=== PATIENT | female | born 1960 | race African-American/Black ===

== ENCOUNTER 2016-09-02 22:01 | Emergency (ER) | payer OTHER ==
[~2016-09-02] VITALS: Ht 170.2 cm; Wt 190.5 kg
[~2016-09-02 22:01] MED LIST: ALBU0.63 NEB; ALPR0.5T6 PO; AMLO1CAP10 PO; AMLO1CAP15 PO; AMLO1TAB95 PO; ASPI81TA44 PO; AZIT250T6 PO; Amoxicillin/Potassium Clav PO; CRESTOR20 MG PO; CYCL10TA2 PO; CYCL5TAB PO; DICL100G7 TP; FERR-26 PO; FLUT10SP NS; FURO40TA4 PO; GABA600T2 PO; HYDR-2762 PO; HYDR-971 PO; HYDR25TA PO; IBUP-1060 PO; INSU100I17 SQ; INSU100I27 SQ; INSU100V13 SQ; ISOS20TA2 PO; ISOS60TA2 PO; LANS30CA PO; LIDO700A4 TP; LOSA50TA6 PO; METF500T4 PO; METO25TA4 PO; NITR0.4T SL; OXYB5TAB7 PO; OXYC-250 PO; POTA20TA12 PO; PRED20TA PO; PREG75CA PO; PROAIR HFA8.5 GM IH; ROPI1TAB2 PO; TOLT4CAP PO; TRAM-29 PO; XOPENEX1.25 MG/3 NEB; ZOLP10TA4 PO
--- NOTE | 2016-09-02 22:57 | PHYS DOC ---
Past Medical History Past Medical History: Anxiety, Asthma, CAD, COPD, Diabetes-Type II, High Cholesterol, Hypertension, Other Additional Past Medical Histor: neuropathy, morbid obesity Past Surgical History: Angioplasty, Other Additional Past Surgical Histo: abscess surgery, cardiac cath with stents Alcohol Use: Occasionally Drug Use: Opiates Adult General Chief Complaint Chief Complaint: HIP PAIN HPI HPI Patient is a 56 year old female who presents with RLE pain. Patient reports for the past 3 days she has had sharp pain radiating from her right buttock down the back of her leg to her right foot. She denies fall or trauma in the past. She has taken some hydrocodone with temporary relief. Patient reports she has had symptoms in the past that were the same; it was diagnosed as sciatica in the past. No other acute complaints. Review of Systems Review of Systems Constitutional: Denies fever or chills Eyes: Denies change in visual acuity or eye pain HENT: Denies nasal congestion or sore throat Respiratory: Denies cough or shortness of breath Cardiovascular: Denies chest pain GI: Denies abdominal pain, nausea, vomiting, bloody stools or diarrhea : Denies dysuria or hematuria Musculoskeletal: RLE pain Integument: Denies rash or skin lesions Neurologic: Denies headache, focal weakness or sensory changes Current Medications Current Medications Current Medications Medications (Trade) Dose Ordered Sig/Lui Start Time Stop Time Status Last Admin Dose Admin Acetaminophen/ Hydrocodone Bitart (Lortab 5/325) 2 tab 1X ONCE 09/02/16 23:00 09/02/16 23:01 DC 09/02/16 23:32 2 TAB Allergies Allergies Allergies Coded Allergies Type Severity Reaction Last Updated Verified No Known Drug Allergies 04/08/15 No Physical Exam Physical Exam Constitutional: Well developed, well nourished, no acute distress, non-toxic appearance HENT: Normocephalic, atraumatic, bilateral external ears normal Eyes: EOMI, conjunctiva normal, no discharge Neck: Normal range of motion, no stridor Cardiovascular: Heart rate normal, regular rhythm, no murmur Lungs & Thorax: Bilateral breath sounds clear to auscultation Abdomen: Bowel sounds normal, soft, non-distended, no TTP Skin: Warm, dry, no erythema, no rash Back: No lumbar tenderness, no deformity noted Extremities: BLE non-pitting edema. RLE visually unremarkable compared to L; no significant point TTP; motor function and sensation to light touch at baseline; 2+ DP pulse Neurologic: Alert and oriented X 3, no gross deficits noted Current Patient Data Vital Signs Vital Signs Date Time Temp Pulse Resp B/P Pulse Ox O2 Delivery O2 Flow Rate FiO2 09/02/16 23:35 83 20 125/57 94 Room Air 2 09/02/16 22:03 99.3 99.3 EKG EKG [] Radiology/Procedures Radiology/Procedures [] Course & Med Decision Making Course & Med Decision Making Pertinent Labs and Imaging studies reviewed. (See chart for details) Patient is 56-year-old female who presents with right lower extremity pain. History and exam consistent with sciatica, which patient says she has history of. No other concerning findings on physical exam. As there is no trauma and she has h/o similar pain, will not pursue imaging at this time. Oral pain medication ordered for relief of pain. I wish to avoid steroids in this patient given comorbidities and concern for side effects. Patient discharged home with prescription for same, instructions for follow-up, return precautions. Dragon Disclaimer Dragon Disclaimer This electronic medical record was generated, in whole or in part, using a voice recognition dictation system. Departure Departure Impression: Primary Impression: Sciatica Disposition: 01 HOME, SELF-CARE Condition: STABLE Referrals: ALBA GUERRA MD (PCP) Patient Instructions: Sciatica Additional Instructions: Thank you for allowing us to provide care today in the Emergency Department. Take the provided medication as directed. Use caution when taking the pain medication as it can make you drowsy. Also continue to take the gabapentin that you have. Schedule a follow up appointment with your primary care doctor. Return promptly to the Emergency Department if you develop any new or concerning symptoms. Scripts Hydrocodone/Apap 5-325 (Tama 5-325 Tablet)1 Each Tablet1-2 Tab PO PRN Q6HRS PRN PAIN #20 TAB Prov:CIERRA BERRIOS MD 09/02/16 CIERRA BERRIOS MD Sep 02, 2016 22:58
[2016-09-02] MEDS ORDERED: HYDROCODONE/APAP 5/325MG TABLET. PO ONE (23:00)
[2016-09-02] MEDS ORDERED: HYDR-971 PO (23:01)
[2016-09-02 23:35] VITALS: BP 125/57
== END 2016-09-03 00:55 | disposition home or self-care (01) ==
LOC: ER 22:01
DX: M54.30 Sciatica, unspecified side (principal); I10 Essential (primary) hypertension; E78.00 Pure hypercholesterolemia, unspecified; E66.01 Morbid (severe) obesity due to excess calories; J44.9 Chronic obstructive pulmonary disease, unspecified; I25.10 Atherosclerotic heart disease of native coronary artery without angina pectoris; F41.9 Anxiety disorder, unspecified; F11.10 Opioid abuse, uncomplicated; E11.40 Type 2 diabetes mellitus with diabetic neuropathy, unspecified; Z95.5 Presence of coronary angioplasty implant and graft
CPT/HCPCS: 99284

== ENCOUNTER 2016-09-08 12:49 | Inpatient (IN) | payer OTHER ==
[~2016-09-08] VITALS: Ht 170.2 cm; Wt 175.1 kg
--- NOTE | 2016-09-08 14:31 | ED.ADGEN ---
Past Medical History Past Medical History: Anxiety, Asthma, CAD, COPD, Diabetes-Type II, High Cholesterol, Hypertension, Other Additional Past Medical Histor: neuropathy, morbid obesity Past Surgical History: Angioplasty, Other Additional Past Surgical Histo: abscess surgery, cardiac cath with stents Alcohol Use: Occasionally Drug Use: Opiates Adult General Chief Complaint Chief Complaint: LOWER EXT PAIN HPI HPI Patient is a 56 year old woman, history of hypertension, type 2 diabetes mellitus, morbid obesity, who presents to the emergency department with complaint of increasing pain and swelling in her right lower extremity over the past 2 weeks. Patient states that she was seen on the for pain in her right extremity, was told that she was suffering sciatica. She states that she has not been ambulate much since that time, and is noted increasing swelling and pain in the leg. At this time she states she is unable to family secondary to pain. Has been taking hydrocodone home without relief. Denies any other symptoms, no fevers, no chills, no injury, no shortness of breath or chest pain , nausea or vomiting, no weakness numbness or tingling. No history of DVT or PE. Review of Systems Review of Systems Constitutional: Denies fever or chills. [] Eyes: Denies change in visual acuity. [] HENT: Denies nasal congestion or sore throat. [] Respiratory: Denies cough or shortness of breath. [] Cardiovascular: Denies chest pain or edema. [] GI: Denies abdominal pain, nausea, vomiting, bloody stools or diarrhea. [] : Denies dysuria. [] Musculoskeletal: Denies back pain or joint pain. Complaining of pain throughout the right lower extremity. Integument: Denies rash. [] Neurologic: Denies headache, focal weakness or sensory changes. [] Endocrine: Denies polyuria or polydipsia. [] Lymphatic: Denies swollen glands. [] Psychiatric: Denies depression or anxiety. [] Current Medications Current Medications Current Medications Medications (Trade) Dose Ordered Sig/Lui Start Time Stop Time Status Last Admin Dose Admin Diazepam (Valium) 10 mg 1X ONCE 09/08/16 15:30 09/08/16 15:31 DC 09/08/16 16:38 10 MG Fentanyl Citrate (Fentanyl 2ml Vial) 50 mcg PRN Q15MIN PRN 09/08/16 14:00 09/09/16 13:59 09/08/16 15:03 50 MCG Allergies Allergies Allergies Coded Allergies Type Severity Reaction Last Updated Verified No Known Drug Allergies 04/08/15 No Physical Exam Physical Exam Constitutional: Well developed, well nourished, obese, mild distress due to pain , non-toxic appearance. [] HENT: Normocephalic, atraumatic, bilateral external ears normal, oropharynx moist, no oral exudates, nose normal. [] Eyes: PERRLA, EOMI, conjunctiva normal, no discharge. [] Neck: Normal range of motion, no tenderness, supple, no stridor. [] Cardiovascular:Heart rate regular rhythm, no murmur, S1, S2, rubs or gallops. [] Lungs & Thorax: Bilateral breath sounds clear to auscultation, no wheezing, rhonchi, rales. [] Abdomen: Bowel sounds normal, obese, soft, no tenderness, no masses, no pulsatile masses. [] Skin: Warm, dry, no erythema, no rash. [] Back: No midline tenderness, no CVA tenderness. [] Extremities: No tenderness, no cyanosis, no clubbing, ROM intact, patient with swelling and pain noted throughout the calf region, positive for pain with compression and flexion. No signs of induration erythema or abscess formation. Neurologic: Alert and oriented X 3, normal motor function, normal sensory function, no focal deficits noted. [] Psychologic: Affect normal, judgement normal, mood normal. [] Current Patient Data Vital Signs Vital Signs Date Time Temp Pulse Resp B/P Pulse Ox O2 Delivery O2 Flow Rate FiO2 09/08/16 15:03 16 97 Room Air 09/08/16 12:56 98.9 100 166/88 98.9 Lab Values Laboratory Tests Test 09/08/16 14:20 White Blood Count 6.6x10^3/uL (4.0-11.0) Red Blood Count 4.15x10^6/uL (3.50-5.40) Hemoglobin 9.6g/dL (12.0-15.5) L Hematocrit 31.5% (36.0-47.0) L Mean Corpuscular Volume 76fL (79-100) L Mean Corpuscular Hemoglobin 23pg (25-35) L Mean Corpuscular Hemoglobin Concent 31g/dL (31-37) Red Cell Distribution Width 15.6% (11.5-14.5) H Platelet Count 305x10^3/uL (140-400) Neutrophils (%) (Auto) 63% (31-73) Lymphocytes (%) (Auto) 25% (24-48) Monocytes (%) (Auto) 9% (0-9) Eosinophils (%) (Auto) 3% (0-3) Basophils (%) (Auto) 0% (0-3) Neutrophils # (Auto) 4.1x10^3uL (1.8-7.7) Lymphocytes # (Auto) 1.6x10^3/uL (1.0-4.8) Monocytes # (Auto) 0.6x10^3/uL (0.0-1.1) Eosinophils # (Auto) 0.2x10^3/uL (0.0-0.7) Basophils # (Auto) 0.0x10^3/uL (0.0-0.2) Prothrombin Time 14.0SEC (11.7-14.0) Prothrombin Time INR 1.2 (0.8-1.1) H PTT 36SEC (24-38) Sodium Level 139mmol/L (136-145) Potassium Level 4.6mmol/L (3.5-5.1) Chloride Level 102mmol/L (98-107) Carbon Dioxide Level 32mmol/L (21-32) Anion Gap 5 (6-14) L Blood Urea Nitrogen 14mg/dL (7-20) Creatinine 1.0mg/dL (0.6-1.0) Estimated GFR (Cockcroft-Gault) 68.9 Glucose Level 243mg/dL (70-99) H Calcium Level 9.5mg/dL (8.5-10.1) Laboratory Tests 09/08/16 14:20 Laboratory Tests 09/08/16 14:20 EKG EKG ECG: Sinus rhythm, heart rate 89, no ectopy. As interpreted by me. Radiology/Procedures Radiology/Procedures [] [facility] [address] [place] [address] IMAGING REPORT Signed PATIENT: MARIKA SMITH ACCOUNT: [id number] : 1960 LOCATION: ER AGE: 56 SEX: F EXAM STATUS: REG ER ORD. PHYSICIAN: OLINDA BLEDSOE DO REASON: Pain/swelling PROCEDURE: VENOUS LOWER EXTREMITY RIGHT Right lower extremity venous ultrasound, 09/08/2016 : History: Right leg pain and swelling Duplex evaluation including grayscale, color flow and spectral Doppler analysis was performed. The femoral and popliteal veins show no filling defects to suggest DVT. The visualized calf veins are unremarkable. IMPRESSION: There is no sonographic evidence of deep vein thrombosis in the right lower extremity DICTATED and SIGNED BY: FABY HATHAWAY MD DATE: 09/08/16 1449 CC: OLINDA BLEDSOE DO; ALBA GUERRA MD ~ Course & Med Decision Making Course & Med Decision Making Pertinent Labs and Imaging studies reviewed. (See chart for details) Patient's examination is consistent with sciatica, ultrasound ordered of the right lower extremity due to patient's pain and swelling, which is negative for DVT. I did relay this information to the patient, she was given Valium and fentanyl in the emergency department, however on reevaluation she is relieved finding should not blow call, she states that she is still unable to ambulate. I did attempt family the patient with support in the emergency room, patient was unable to bear weight secondary to pain and spasm. I did discuss findings as above with Dr. Pham, on-call for the patient's primary care provider, patient accepted to his service as admission for intractable pain, and inability to ambulate. Able with this plan. Will consult physical therapy, but orders per his request. Dragon Disclaimer Dragon Disclaimer This electronic medical record was generated, in whole or in part, using a voice recognition dictation system. Departure Impression: Primary Impression: Intractable pain Additional Impression: Sciatica Disposition: 09 ADMITTED INPATIENT Admitting Physician: Darinel Pham Condition: STABLE Problem Qualifiers Additional Impression: Sciatica Laterality: right Qualified Code: M54.31 - Sciatica, right side OLINDA BLEDSOE DO Sep 08, 2016 14:31
[2016-09-08 14:47] LABS: BASO % 0 % (0-3); EOS % 3 % (0-3); HEMATOCRIT 31.5 % (36.0-47.0); HEMOGLOBIN 9.6 g/dL (12.0-15.5); LYMPH # 1.6 x10^3/uL (1.0-4.8); LYMPH % 25 % (24-48); MEAN CORPUSCULAR HEMOGLOBIN 23 pg (25-35); MEAN CORPUSCULAR HGB CONC 31 g/dL (31-37); MEAN CORPUSCULAR VOLUME 76 fL (79-100); MONO % 9 % (0-9); NEUT % 63 % (31-73); PLATELET COUNT 305 x10^3/uL (140-400); RED BLOOD COUNT 4.15 x10^6/uL (3.50-5.40); RED CELL DISTRIBUTION WIDTH 15.6 % (11.5-14.5); WHITE BLOOD COUNT 6.6 x10^3/uL (4.0-11.0)
--- NOTE | 2016-09-08 14:52 | RAD ---
Right lower extremity venous ultrasound, 09/08/2016 : History: Right leg pain and swelling Duplex evaluation including grayscale, color flow and spectral Doppler analysis was performed. The femoral and popliteal veins show no filling defects to suggest DVT. The visualized calf veins are unremarkable. IMPRESSION: There is no sonographic evidence of deep vein thrombosis in the right lower extremity
[2016-09-08 15:00] LABS: INR 1.2 (0.8-1.1)
[2016-09-08] MEDS: FENTANYL PF 100 MCG/2 ML VIAL. IV PRN ×3 (15:03→18:12)
[2016-09-08 15:05] LABS: CALCIUM 9.5 mg/dL (8.5-10.1); GFR 68.9; POTASSIUM 4.6 mmol/L (3.5-5.1)
--- NOTE | 2016-09-08 15:05 | EKG ---
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
[2016-09-08] MEDS ORDERED: DIAZEPAM 10 MG/2 ML DISP.SYRIN. IV ONE (15:30)
--- NOTE | 2016-09-08 18:00 | ACF ---
Admission Forms Criteria [facility] Clinical Indications for Admission to Inpatient Care (Place 'X' for any and all applicable criteria): Hospital admission is needed for appropriate care of the patient because of ANY ONE of the following are present (1)(2)(3)(4)(5): [X]I. Severe pain requiring acute inpatient management as indicated by ALL of the following (2)(5)(10): [X]a) Continuous or frequent (eg, every 2 to 4 hours) parenteral analgesics required [A] [ ]b) Necessity (ie, alternative approaches not effective) for analgesic regimen that can only be performed or initiated in inpatient setting [X]II. Pain causing debilitation to the point of inability to function or be supported at any other level of care [ ]III. Severe side effects from pain medications as indicated by ANY ONE of the following (12)(13)(14)(15): [ ]a) Uncontrollable seizures [ ]b) Cardiac arrhythmias [ ]c) Severe volume depletion [ ]d) Vomiting that is uncontrollable at any other level of care [ ]e) Altered mental status (Tara coma scale score less than 13) [ ]f) Obstipation with inadequate GI function to maintain nutrition [ ]g) Dehydration that is severe or persistent The original [employer] content created by [employer] has been revised. The portions of the content which have been revised are identified through the use of italic text or in bold, and [facility] has neither reviewed nor approved the modified material. All other unmodified content is copyright [employer]. Please see references footnoted in the original [facility] edition 2016 Admission Criteria Met?: Yes YESSICA COBB Sep 08, 2016 18:00
[2016-09-08] MEDS ORDERED: NITROGLYCERIN SUBLINGUAL 0.4 MG BOTTLE OF 25. SL PRN (18:30)
[2016-09-08] MEDS ORDERED: ALBUTEROL SULFATE 2.5 MG/3 ML NEBU. NEB PRN (18:30)
[2016-09-08] MEDS ORDERED: CYCLOBENZAPRINE 10 MG TABLET. PO PRN (18:30)
[2016-09-08] MEDS ORDERED: DICLOFENAC SODIUM 1% TOPICAL GEL 100GM TUBE. TP PRN (18:30)
[2016-09-08] MEDS ORDERED: ALPRAZOLAM 0.5 MG TABLET PO PRN (18:30)
[2016-09-08 19:15] VITALS: BP 178/112
[2016-09-08] MEDS ORDERED: PANT40TA3 PO (19:52)
[2016-09-08] MEDS ORDERED: ROPI1TAB PO (19:52)
[2016-09-08] MEDS ORDERED: DEXTROSE 50% 25 GM / 50ML DISP.SYRIN. IV PRN (20:00)
[2016-09-08] MEDS ORDERED: ONDANSETRON PF 4 MG/2 ML VIAL. IV PRN (20:00)
[2016-09-08] MEDS ORDERED: MORPHINE SULFATE 4 MG/ML DISP.SYRIN. IV PRN (20:00)
[2016-09-08] MEDS ORDERED: ACETAMINOPHEN 325 MG TABLET. PO PRN (20:00)
[2016-09-08] MEDS ORDERED: HYDR-2868 PO (20:03)
[2016-09-08] MEDS ORDERED: PROAIR RESPICL90 MCG IH (20:03)
[2016-09-08] MEDS ORDERED: HYDR-2762 PO (20:03)
[2016-09-08] MEDS ORDERED: METF850T2 PO (20:03)
[2016-09-08] MEDS ORDERED: TRIA15OI TP (20:03)
[2016-09-08] MEDS ORDERED: ASPI325T4 PO (20:03)
[2016-09-08] MEDS ORDERED: CYCL10TA2 PO (20:03)
[2016-09-08] MEDS ORDERED: LOSA50TA6 PO (20:03)
[2016-09-08] MEDS ORDERED: INSULIN DETEMIR 300 UNITS/3 ML INSULN.PEN. SQ SCH (21:00)
[2016-09-08] MEDS ORDERED: ATORVASTATIN CALCIUM 40 MG TABLET. PO SCH (21:00)
[2016-09-08] MEDS: METOPROLOL TART IMMED RELEASE 50 MG TABLET PO SCH (21:29)
[2016-09-08] MEDS: GABAPENTIN 300 MG CAPSULE. PO SCH (21:29)
[2016-09-08] MEDS: IBUPROFEN 800 MG TABLET. PO SCH (21:30)
[2016-09-08] MEDS: OXYBUTYNIN CHLORIDE 5 MG TABLET PO SCH (21:31)
[2016-09-08 23:00] VITALS: BP 140/73
[2016-09-09 03:00] VITALS: BP 113/70
[2016-09-09 07:00] VITALS: BP 150/85
[2016-09-09] MEDS ORDERED: POTASSIUM CHLORIDE 20 MEQ TABLET.ER. PO SCH (08:00)
[2016-09-09] MEDS: INSULIN ASPART 300 UNITS/3 ML INSULN.PEN SQ SCH ×4 (08:00→11:55)
[2016-09-09] MEDS ORDERED: ASPIRIN 81 MG TAB.CHEW PO SCH (08:00)
--- NOTE | 2016-09-09 08:10 | PDOC ---
Provider Note Provider Note See admission H&P dictation #[id number] Impression: 1. Intractable low back pain with radiation of the right le. Morbid obesity: 3. Diabetes mellitus type 2: HUBER RANDALL MD Sep 09, 2016 08:10
[2016-09-09] MEDS ORDERED: OXYCODONE/APAP 10/325 TABLET. PO PRN ×2 (08:15)
[2016-09-09] MEDS ORDERED: FENTANYL PF 100 MCG/2 ML VIAL. IV PRN (08:15)
--- NOTE | 2016-09-09 08:29 | RAD ---
Lumbar spine, 3 views, 09/08/2016: History: Low back pain The lumbar vertebral heights are well-maintained. The intervertebral disc spaces are well preserved. There are minimal scattered marginal spurs. Aortic calcific plaquing is present. There is a moderate amount of stool in the colon. IMPRESSION: 1. Minimal degenerative change. 2. No acute lumbar spine abnormality is detected.
[2016-09-09] MEDS ORDERED: FUROSEMIDE 40 MG TABLET PO SCH (09:00)
[2016-09-09] MEDS ORDERED: FLUTICASONE 50MCG/NASAL SPRAY 16GM BOTTLE. NS SCH (09:00)
[2016-09-09] MEDS: GABAPENTIN 300 MG CAPSULE. PO SCH ×2 (09:16→14:33)
[2016-09-09] MEDS: OXYBUTYNIN CHLORIDE 5 MG TABLET PO SCH (09:16)
[2016-09-09] MEDS: METOPROLOL TART IMMED RELEASE 50 MG TABLET PO SCH (09:17)
[2016-09-09] MEDS: IBUPROFEN 800 MG TABLET. PO SCH ×2 (09:17→14:34)
[2016-09-09] MEDS ORDERED: BISACODYL 5 MG TABLET.DR. PO PRN (10:15)
[2016-09-09] MEDS ORDERED: SENNOSIDES/DOCUSATE 8.6/50MG TABLET. PO PRN (10:15)
[2016-09-09 11:00] VITALS: BP 155/77
--- NOTE | 2016-09-09 13:20 | CONS ---
DATE OF CONSULTATION: 09/09/2016 LOCATION: She is in room 404. ATTENDING PHYSICIAN: Dr. Figueroa. The patient was seen at the request of Dr. Figueroa for rehab evaluation. HISTORY OF PRESENT ILLNESS: This is a 56-year-old right-handed female on disability for about 20 years. 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 Prior to that one, the patient with known hypertension, type 2 diabetes mellitus, morbid obesity with associated diabetic peripheral neuropathy. The patient having lower back pain with radiation to right lower extremity going on for about 2 weeks without any specific injury. The patient was seen in the Emergency Room last week on the 14 of this month and she was diagnosed as having sciatica and since then she was not able to walk and having increasing swelling and pain in her right lower extremity. She lives alone. She was admitted to the Emergency Room on 09/08/2016 ____ is not helping. The patient since admission had Doppler studies of her lower extremities, which failed to reveal any evidence of deep venous thrombosis and x-rays of the lumbar spine done revealed no acute abnormality. The patient admits that she is feeling better. Since hospitalization, the patient had good pain relief with Percocet in the prior hospitalizations. The patient lives alone, had no stairs to manage. She had a roller walker to walk around. The patient denies any trouble with her bowel or bladder control, but x-rays of lumbar spine revealed stool in her colon. PHYSICAL EXAMINATION: Today revealed a middle-aged female. She is obese. She is alert, oriented to time, place, person and circumstance and follows commands appropriately, moves all 4 extremities voluntarily where she had 4+/5 grade muscle strength with relatively increased weakness in ulnar hand intrinsic muscles bilaterally where she had some muscle atrophy of hand intrinsic muscles. She had absent knee and ankle jerks. She had equal perception of touch and pinprick sensation bilaterally. Negative Tinel's sign over median nerve at the wrist and ulnar nerve at the wrist and elbow. She had previous right carpal tunnel release done. The patient is independent with bed mobility and transfers and she got up and walked using a roller walker. Straight leg raising test is negative bilaterally. She had tenderness to palpation over right sacroiliac joint area. She had crepitus on range of motion of both knee joints without any obvious knee joint effusion. She had pain free range of motion on both hip joints. She had painful limited movements of her lumbar spine without any significant paraspinal muscle spasm. ASSESSMENT: A middle-aged female with diabetes mellitus with peripheral neuropathy, morbid obesity, hypertension with 2 weeks history of lower back pain with right lumbar radiculitis to rule out associated degenerative disk disease. She also had degenerative joint disease of both knees without much pain. RECOMMENDATIONS: As her body does not fit MRI scan machine, to obtain a CT scan of her lumbar spine and agree with the plans for Percocet for pain control and ibuprofen as an anti-inflammatory medication, hopefully home with outpatient followup to consider a right sacroiliac joint injection or lumbar epidural steroid injection if her pain persists. Dr. Figueroa, I appreciate asking me to participate in care of this interesting patient. I will be glad to follow her with you as needed for her rehabilitation. KATIUSKA PUGA MD DR: FABIOLA/estrella JOB#: [id number] / [id number]
--- NOTE | 2016-09-09 15:05 | DISCH ---
DISCHARGE INSTRUCTIONS Condition on Discharge Condition on Discharge: Stable Activity After Discharge Activity Instructions for Disc: Activity as tolerated Diet after Discharge Diet after Discharge: Diabetic No Calorie Level Wound Incision Care Other wound/incision instructi: Bactroban to umbilicus TID o/w keep dry Checks after Discharge Checks after discharge: Check blood press - daily, Check blood sugar, ac/hs Contacting the [facility] after DC Call your doctor for: If your condition worsens Follow-Up Follow up with: Dr Figueroa in 1-2 weeks HUBER RANDALL MD Sep 09, 2016 15:05
[2016-09-09] MEDS ORDERED: INSU100I17 SQ (15:10)
[2016-09-09] MEDS ORDERED: OXYC1TAB9 PO (15:10)
[2016-09-09] MEDS ORDERED: MUPI22OI2 TP (15:12)
--- NOTE | 2016-09-09 15:35 | RAD ---
CT of the lumbar spine without contrast, 09/09/2016: History: Low back pain Noncontrast scans were obtained with multiplanar reconstructions produced. The images are of suboptimal quality due to the patient's size. No fracture or dislocation is identified. No destructive bony lesion is seen. The intervertebral disc spaces are fairly well preserved. There are mild scattered marginal spurs in the lower thoracic spine. There are mild sclerotic changes involving the facet joints in the lower lumbar spine. The posterior disc margins are not clearly defined due to the artifacts. No disc herniation or spinal stenosis is identified. No high-grade foraminal stenosis is seen. There is moderate calcific plaquing of the abdominal aorta and its branches. IMPRESSION: 1. Mild scattered degenerative changes. 2. Suboptimal exam demonstrating no acute abnormality. PQRS Compliance Statement: One or more of the following individualized dose reduction techniques were utilized for this examination: 1. Automated exposure control 2. Adjustment of the mA and/or kV according to patient size 3. Use of iterative reconstruction technique
--- NOTE | 2016-09-17 11:30 | HP ---
ADMIT DATE: 09/09/2016 ATTENDING PHYSICIAN: Dr. Huber Randall. CHIEF COMPLAINT: Right back/hip pain radiating to the right leg. HISTORY OF PRESENT ILLNESS: The patient is a 56-year-old morbidly obese female who has had a history of back pain in the past approximately 08/30/2016. She had the onset of pain in her right hip and back. This radiated to her right leg. The symptoms became progressively worse, prompting her evaluation in the Emergency Room. The day prior to admission, she was seen and given medication and sent home. The pain continued to worsen. She was not able to get any relief with her usual hydrocodone medication that she is prescribed. She presented for repeat evaluation in the Emergency Room, the pain which was so bad now that she was unable to walk. She denies any specific weakness or numbness, but she was unable to walk secondary to the pain. She denied any left leg pain. There are no accidents or injuries. She was also having right leg swelling, which also prompted her to come in for evaluation. PAST MEDICAL HISTORY: Significant for hypertension, diabetes mellitus type 2 with neuropathy, osteoarthritis, hyperlipidemia, COPD, gastroesophageal reflux disease, congestive heart failure, restless legs syndrome, obstructive sleep apnea, chronic anxiety, morbid obesity. PAST SURGICAL HISTORY: Cardiac stents twice in the last several years, incision and drainage of labial and perirectal abscess in 2013, hysterectomy for enlarged uterus. ALLERGIES TO MEDICATIONS: No known drug allergies. FAMILY HISTORY: Her mother had heart disease. SOCIAL HISTORY: The patient smoked approximately 40 years, but has quit in 2012. She denies any illicit drug use. She does have occasional alcohol use. MEDICATIONS: At the time of admission include albuterol nebulizer treatments q.i.d. and metered dose inhaler q.i.d. p.r.n., Xanax 0.5 mg p.o. b.i.d., amlodipine, benazepril 10/40 one p.o. daily, aspirin 325 mg p.o. daily, Flexeril 10 mg p.o. t.i.d. p.r.n., Voltaren gel q.i.d. p.r.n., iron 325 mg p.o. daily, Lasix 40 mg p.o. daily, gabapentin 600 mg p.o. b.i.d., hydralazine 25 mg p.o. b.i.d., ibuprofen 800 mg p.o. t.i.d., Levemir 70 units subcutaneously at bedtime, Imdur 60 mg 2 p.o. daily, NovoLog 55 units t.i.d. with meals, metformin 850 mg p.o. b.i.d., Lopressor 50 mg p.o. b.i.d., nitroglycerin 0.4 mg sublingual every 5 minutes p.r.n., oxybutynin 5 mg p.o. daily, Protonix 40 mg p.o. daily, potassium 20 mEq p.o. daily, Requip 1 mg p.o. daily, Crestor 20 mg p.o. daily, [place] 1 p.o. q.i.d. p.r.n. it is uncertain which dose that is. Bactroban t.i.d. to the umbilicus, Percocet 10/325 one p.o. q.i.d. p.r.n. number 40. REVIEW OF SYSTEMS: The patient denies any fevers. She has not had any recent injuries. She denies any headaches or vision changes. She is swallowing without difficulty. She denies any shortness of breath. She denies any significant cough. She denies any palpitations. She occasionally has some brief episodes of chest pain, which she has taken nitroglycerin for. 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 She has been eating and drinking okay. She did have an episode of diarrhea prior to the onset of the pain. She has been urinating without any difficulty. She denies any dysuria. She has had a sore throat in the last couple of days and has been producing some clear phlegm. She denies any psychiatric issues at present. She denies any numbness in any of the extremities. She did have an area of abrasion and irritation in her umbilicus that has been going on for several days that occasionally weepy. PHYSICAL EXAMINATION: VITAL SIGNS: At time of admission, temperature 98.9, pulse 100, respiratory rate 18, blood pressure 166/88, O2 sat 97% on room air. GENERAL: The patient is a morbidly obese female sitting in bed in no acute distress. She is alert and oriented. HEENT: The pupils are equal and round. The extraocular motions are intact. Sclerae are anicteric. Oropharynx is moist. NECK: Without JVD, but it is obese. There is no bruit. CHEST: Has decreased air movement throughout with occasional wheeze, but no rales. CARDIOVASCULAR: The heart has a regular rate and rhythm without murmur. ABDOMEN: Morbidly obese, nontender. The umbilicus, she has a very superficial ulcer with some, minimal erythema without any purulent drainage. EXTREMITIES: There is no significant pitting edema in either extremity at present. She is able to move the legs equally. BACK: There is some tenderness to palpation in the right lumbar area. NEUROLOGIC: Motor strength appears to be intact bilaterally. PSYCHIATRIC: Mood and affect appear appropriate. LABORATORY DATA: At the time of admission, WBC 6.6, hemoglobin 9.6, hematocrit 31.5, platelets 305. INR 1.2. Sodium 139, potassium 4.6, chloride 102, CO2 is 32, BUN 14, creatinine 1.0. Glucose 243. Ultrasound of the right lower extremity does not show any evidence of DVT, lumbar series shows minimal degenerative change, no acute lumbar spinal abnormality. IMPRESSION: 1. Intractable low back pain with radiation of the pain to the right leg causing inability to ambulate. 2. Morbid obesity. 3. Diabetes mellitus type 2, poorly controlled. 4. Hypertension. 5. Umbilical ulcer probably due to yeast infection initially. HOSPITAL COURSE: The patient was admitted. She was given IV pain medication. She is seen in consultation with Dr. Horn since she is too obese to do an MRI, CT scan was recommended. The CT scan showed scattered degenerative changes, but it was a suboptimal exam, but it did not identify any acute abnormality. The intervertebral disk space was fairly well preserved. There were some mild scattered marginal spurs. No high grade foraminal stenosis was noted. The patient had her pain medication change to Percocet, which she tolerated well. That actually seemed to help quite a bit with her pain with the CT scan showing no significant abnormality and the Percocet for pain control. She was able to begin ambulating around and she felt that she was safe to go home. DISCHARGE DIAGNOSES: 1. Intractable low back pain with radiation of the pain to the right leg causing inability to ambulate. 2. Morbid obesity. 3. Diabetes mellitus type 2, poorly controlled. 4. Hypertension. DISCHARGE DIET: Diabetic diet. DISCHARGE ACTIVITY: As tolerated. FOLLOWUP: She is to follow up with Dr. Figueroa in 1-2 weeks where they can determine if she will need to go for physical therapy or not. HUBER RANDALL MD DR: AMMY/estrella JOB#: [id number] / [id number]
== END 2016-09-09 16:01 | disposition home or self-care (01) | DRG 552 ==
LOC: ER 12:49 → ED HOLD 16:42 → 4 NORTH 18:46
PROVIDERS: ADMIT Family Medicine; ATTEND Family Medicine
DX: M54.16 Radiculopathy, lumbar region (principal); Z68.44 Body mass index [BMI] 60.0-69.9, adult; F41.9 Anxiety disorder, unspecified; E11.42 Type 2 diabetes mellitus with diabetic polyneuropathy; E66.01 Morbid (severe) obesity due to excess calories; E78.00 Pure hypercholesterolemia, unspecified; I10 Essential (primary) hypertension; I25.10 Atherosclerotic heart disease of native coronary artery without angina pectoris; J44.9 Chronic obstructive pulmonary disease, unspecified; J45.909 Unspecified asthma, uncomplicated; M17.0 Bilateral primary osteoarthritis of knee
CPT/HCPCS: 36415; 72100; 72131; 80048; 82947; 85027; 85610; 85730; 93005; 93971; 96374; 96375; 96376; J1815; J2270; J3010; J3360; J7042; 97110; 99285-25

== ENCOUNTER 2017-07-12 21:15 | Emergency (ER) | payer OTHER ==
[2017-07-12 21:40] LABS: ADD MAN DIFF? NO
[2017-07-12 21:41] LABS: BASO # 0.1 x10^3/uL (0.0-0.2); BASO % 1 % (0-3); EOS % 3 % (0-3); HEMOGLOBIN 10.2 g/dL (12.0-15.5); LYMPH # 1.2 x10^3/uL (1.0-4.8); LYMPH % 19 % (24-48); MEAN CORPUSCULAR HEMOGLOBIN 23 pg (25-35); MEAN CORPUSCULAR HGB CONC 31 g/dL (31-37); MEAN CORPUSCULAR VOLUME 75 fL (79-100); MONO % 9 % (0-9); NEUT % 68 % (31-73); PLATELET COUNT 291 x10^3/uL (140-400); RED BLOOD COUNT 4.41 x10^6/uL (3.50-5.40); RED CELL DISTRIBUTION WIDTH 16.5 % (11.5-14.5)
[2017-07-12] MEDS: NITROGLYCERIN SUBLINGUAL 0.4 MG BOTTLE OF 25. SL (21:45)
[2017-07-12] MEDS: FUROSEMIDE 40 MG/4 ML VIAL. IVP (21:46)
[2017-07-12 21:49] LABS: ANION GAP 8 (6-14); BLOOD UREA NITROGEN 9 mg/dL (7-20); BUN/CREATININE RATIO 9 (6-20); CALCIUM 8.7 mg/dL (8.5-10.1); CARBON DIOXIDE 32 mmol/L (21-32); CHLORIDE 103 mmol/L (98-107); GFR 68.7; GLUCOSE 145 mg/dL (70-99); POTASSIUM 3.7 mmol/L (3.5-5.1); SODIUM 143 mmol/L (136-145)
[2017-07-12 21:55] LABS: ALBUMIN 2.7 g/dL (3.4-5.0); ALBUMIN/GLOBULIN RATIO 0.7 (1.0-1.7); ALK PHOS 114 U/L (46-116); ALT (SGPT) 14 U/L (14-59); AST (SGOT) 14 U/L (15-37); TOTAL BILIRUBIN 0.2 mg/dL (0.2-1.0); TOTAL PROTEIN 6.6 g/dL (6.4-8.2)
[2017-07-12 21:57] LABS: TROPONINI < 0.017 ng/mL (0.000-0.055)
== END 2017-07-12 23:30 | disposition home or self-care (01) ==
LOC: ER 21:15
DX: J44.9 Chronic obstructive pulmonary disease, unspecified (principal); I11.0 Hypertensive heart disease with heart failure; I50.9 Heart failure, unspecified; I25.10 Atherosclerotic heart disease of native coronary artery without angina pectoris; Z99.81 Dependence on supplemental oxygen; Z95.5 Presence of coronary angioplasty implant and graft
CPT/HCPCS: 36415; 71010; 80053; 84484; 85025; 93005; 96374; 99285-25; J1940

== ENCOUNTER 2017-11-09 06:29 | Observation (INO) | payer OTHER ==
[2017-11-09] MEDS ORDERED: IODIXANOL 320 MG/ML 100 ML VIAL. ×2 (07:06→08:36)
[2017-11-09] MEDS ORDERED: LIDOCAINE 2% 20 ML VIAL. (07:07)
[2017-11-09 07:15] LABS: HEMATOCRIT 33.7 % (36.0-47.0); HEMOGLOBIN 10.8 g/dL (12.0-15.5); MEAN CORPUSCULAR HEMOGLOBIN 24 pg (25-35); MEAN CORPUSCULAR HGB CONC 32 g/dL (31-37); MEAN CORPUSCULAR VOLUME 75 fL (79-100); PLATELET COUNT 306 x10^3/uL (140-400); RED BLOOD COUNT 4.51 x10^6/uL (3.50-5.40); RED CELL DISTRIBUTION WIDTH 16.3 % (11.5-14.5); WHITE BLOOD COUNT 6.7 x10^3/uL (4.0-11.0)
[2017-11-09] MEDS ORDERED: fentaNYL PF VIAL 100 MCG/2 ML VIAL ×2 (07:42→08:42)
[2017-11-09] MEDS ORDERED: hydrALAZINE 20 MG/ML VIAL. (07:42)
[2017-11-09] MEDS ORDERED: VERAPAMIL 5 MG/2 ML VIAL. (07:42)
[2017-11-09] MEDS ORDERED: HEPARIN for IV BOLUS 10,000 UNIT/10 ML VIAL. (07:42)
[2017-11-09] MEDS ORDERED: MIDAZOLAM HCL/PF 2 MG/2 ML VIAL. ×2 (07:42→08:42)
[2017-11-09 07:43] LABS: PROTHROMBIN TIME PATIENT 13.1 SEC (11.7-14.0)
[2017-11-09] MEDS ORDERED: NITROGLYCERIN 200 MCG/2 ML SYRINGE FOR CATH/VASC LAB. (07:44)
[2017-11-09 08:01] LABS: ANION GAP 6 (6-14); BLOOD UREA NITROGEN 15 mg/dL (7-20); CARBON DIOXIDE 30 mmol/L (21-32); CHLORIDE 106 mmol/L (98-107); GFR 68.7; GLUCOSE 129 mg/dL (70-99); POTASSIUM 4.2 mmol/L (3.5-5.1); SODIUM 142 mmol/L (136-145)
[2017-11-09] MEDS ORDERED: BIVALIRUDIN 250 MG VIAL. IV ×2 (08:35→09:02)
[2017-11-09] MEDS ORDERED: CONTRAST GIVEN MC (09:15)
[2017-11-09] MEDS ORDERED: CLOPIDOGREL BISULFATE 75 MG TABLET (09:26)
[2017-11-09] MEDS ORDERED: ACETAMINOPHEN 325 MG TABLET. PO (09:45)
[2017-11-09] MEDS ORDERED: NITROGLYCERIN SUBLINGUAL 0.4 MG BOTTLE OF 25. SL (09:45)
[2017-11-09] MEDS: LIDOCAINE 2% 20 ML VIAL. IJ (09:46)
[2017-11-09] MEDS: hydrALAZINE 20 MG/ML VIAL. IVP (09:47)
[2017-11-09] MEDS: NITROGLYCERIN 200 MCG/2 ML SYRINGE FOR CATH/VASC LAB. IART (09:48)
[2017-11-09] MEDS: VERAPAMIL 5 MG/2 ML VIAL. IART (09:48)
[2017-11-09] MEDS: IODIXANOL 320 MG/ML 100 ML VIAL. IART (09:49)
[2017-11-09] MEDS: fentaNYL PF VIAL 100 MCG/2 ML VIAL IV (09:51)
[2017-11-09] MEDS: CLOPIDOGREL BISULFATE 75 MG TABLET PO ×2 (09:51→10:00)
[2017-11-09] MEDS: MIDAZOLAM HCL/PF 2 MG/2 ML VIAL. IV (09:51)
[2017-11-09] MEDS: BIVALIRUDIN 250 MG VIAL. IV (09:52)
[2017-11-09] MEDS: HEPARIN for IV BOLUS 10,000 UNIT/10 ML VIAL. IART (09:52)
[2017-11-09] MEDS: ASPIRIN ENTERIC COATED 325 MG TABLET.DR. PO (10:00)
[2017-11-09] MEDS ORDERED: INSULIN ASPART 300 UNITS/3 ML INSULN.PEN SQ (12:01)
[2017-11-09] MEDS: INSULIN LISPRO 300 UNITS/3 ML INSULN.PEN. SQ ×2 (12:16→16:30)
[2017-11-09] MEDS: FERROUS SULFATE 325 MG TABLET. PO (12:39)
[2017-11-09] MEDS: oxyCODONE/APAP 5/325 1 TAB TABLET PO ×2 (12:40→19:33)
[2017-11-09] MEDS: LOSARTAN POTASSIUM 50 MG TABLET. PO (12:41)
[2017-11-09] MEDS: amLODIPine BESYLATE 10 MG TABLET PO (12:43)
[2017-11-09] MEDS: ISOSORBIDE MONONITRATE ER 30 MG TAB.ER.24H PO (12:43)
[2017-11-09] MEDS: CYCLOBENZAPRINE 10 MG TABLET. PO (12:44)
[2017-11-09] MEDS: IV 1/2 NORMAL SALINE 1,000 ML IV (12:44)
[2017-11-09 12:55] LABS: POC GLUCOSE 496 mg/dL (70-99)
[2017-11-09] MEDS: LISINOPRIL 20 MG TABLET PO (13:50)
[2017-11-09] MEDS: PANTOPRAZOLE 40 MG TABLET.DR. PO (13:52)
[2017-11-09 18:09] LABS: POC GLUCOSE 42 mg/dL (70-99)
[2017-11-09] MEDS ORDERED: ALBUTEROL SULFATE 2.5 MG/3 ML NEBU. NEB (18:30)
[2017-11-09] MEDS ORDERED: NON FORMULARY ITEM (Albuterol Sulfate (Proair Respiclick) 2 PUFF) IH (18:30)
[2017-11-09] MEDS: rOPINIRole 1 MG TABLET. PO (20:57)
[2017-11-09] MEDS: ATORVASTATIN CALCIUM 40 MG TABLET. PO (20:57)
[2017-11-09] MEDS: INSULIN GLARGINE 300 UNITS/3 ML INSULN.PEN. SQ (21:00)
[2017-11-09 21:02] LABS: POC GLUCOSE 78 mg/dL (70-99)
[2017-11-10] MEDS: oxyCODONE/APAP 5/325 1 TAB TABLET PO (02:05)
[2017-11-10] MEDS: INSULIN LISPRO 300 UNITS/3 ML INSULN.PEN. SQ ×2 (07:30→11:30)
[2017-11-10 08:25] LABS: POC GLUCOSE 35 mg/dL (70-99)
[2017-11-10 08:25] LABS: POC GLUCOSE 37 mg/dL (70-99)
[2017-11-10 08:26] LABS: POC GLUCOSE 49 mg/dL (70-99)
[2017-11-10 08:34] LABS: POC GLUCOSE 77 mg/dL (70-99)
[2017-11-10] MEDS: amLODIPine BESYLATE 10 MG TABLET PO (08:40)
[2017-11-10] MEDS: FERROUS SULFATE 325 MG TABLET. PO (08:41)
[2017-11-10] MEDS: ASPIRIN ENTERIC COATED 325 MG TABLET.DR. PO (08:41)
[2017-11-10] MEDS: CLOPIDOGREL BISULFATE 75 MG TABLET PO (08:41)
[2017-11-10] MEDS: PANTOPRAZOLE 40 MG TABLET.DR. PO (08:42)
[2017-11-10] MEDS: LOSARTAN POTASSIUM 50 MG TABLET. PO (08:43)
[2017-11-10] MEDS: LISINOPRIL 20 MG TABLET PO (08:44)
[2017-11-10] MEDS: ISOSORBIDE MONONITRATE ER 30 MG TAB.ER.24H PO (08:48)
[2017-11-10] MEDS: IV 1/2 NORMAL SALINE 1,000 ML IV (08:51)
[2017-11-10 10:34] LABS: ANION GAP 3 (6-14); BLOOD UREA NITROGEN 13 mg/dL (7-20); CARBON DIOXIDE 31 mmol/L (21-32); CHLORIDE 104 mmol/L (98-107); GFR 68.7; GLUCOSE 124 mg/dL (70-99); MAGNESIUM 1.9 mg/dL (1.8-2.4); POTASSIUM 3.8 mmol/L (3.5-5.1); SODIUM 138 mmol/L (136-145)
[2017-11-10 11:49] LABS: POC GLUCOSE 88 mg/dL (70-99)
[2017-11-12 11:56] LABS: MRSA BY PCR Negative (Negative)
== END 2017-11-10 14:45 | disposition home or self-care (01) ==
LOC: CCL 06:29 → 1 WEST ICU 09:00
DX: I25.110 Atherosclerotic heart disease of native coronary artery with unstable angina pectoris (principal); I50.33 Acute on chronic diastolic (congestive) heart failure; I11.0 Hypertensive heart disease with heart failure; E11.9 Type 2 diabetes mellitus without complications; E78.5 Hyperlipidemia, unspecified; I49.3 Ventricular premature depolarization
CPT/HCPCS: 36415; 80048; 82962; 83735; 85027; 85610; 87641; 92928; 93005; 93458; 96372; 96374; 96375; 99152; 99153; C1725; C1769; C1874; C1887; C1892; G0378; G0379; J0360; J0583; J1644; J1815; J2250; J3010; J3490

== ENCOUNTER → 2018-04-29 | Outpatient (CLI) | payer OTHER ==
[2017-11-10 14:00] VITALS: BP 151/87
[~2018-04-29] MED LIST changes: +AMLO10TA6 PO; +AMOX1TAB61 PO; +ASPI325T11 PO; +ASPI325T8 PO; -ASPI81TA44 PO; +ASPI81TA59 PO; +CLOP75TA PO; +DICL100G18 TP; -DICL100G7 TP; -FERR-26 PO; +FERR325T14 PO; +FLUT100D IH; +HYDR-2868 PO; +HYDR50SY PO; +HYDR50TA PO; +LOSA100T7 PO; -LOSA50TA6 PO; +LOSA50TA7 PO; +METF500T16 PO; -METF500T4 PO; +METF500T9 PO; +METF850T8 PO; +METO50TA6 PO; +MUPI22OI2 TP; -OXYC-250 PO; +OXYC-323 PO; +OXYC-328 PO; +OXYC-411 PO; +PANT40TA3 PO; +POTA10TA12 PO; +POTA20TA82 PO; +PROAIR RESPICL90 MCG IH; +ROPI1TAB PO; -TRAM-29 PO; +TRAM-48 PO; +TRIA15OI TP
--- NOTE | 2018-04-29 11:07 | CARD ---
MR#: [id number] Date of Study: 04/29/2018 Ordering Physician: ERICA ADEN, Referring Physician: ERICA ADEN Tech: Anna Enrique RDCS APPROVED REPORT EXAM: Two-dimensional and M-mode echocardiogram with Doppler and color Doppler. Other Information Quality : Good INDICATION Congestive Heart Failure RISK FACTORS Obesity 2D DIMENSIONS RVDd3.0 (2.9-3.5cm)Left Atrium(2D)4.3 (1.6-4.0cm) IVSd1.2 (0.7-1.1cm)Aortic Root(2D)2.9 (2.0-3.7cm) LVDd5.7 (3.9-5.9cm)LVOT Diameter2.0 (1.8-2.4cm) PWd1.2 (0.7-1.1cm)LVDs4.3 (2.5-4.0cm) FS (%) 22.5 %SV80.2 ml Aortic Valve AoV Peak Mars.169.9cm/sAoV VTI34.1cm AO Peak GR.11.6mmHgLVOT Peak Mars.111.5cm/s AO Mean GR.7mmHgAVA (VMAX)2.08cm2 UZIEL (VTI)2.00cm2 Mitral Valve MV E Twwlrsle017.9cm/sMV DECEL HIVG988sg MV A Lultzvpk54.7cm/sE/A Ratio1.5 Tricuspid Valve TR P. Vjjapjaa369ii/sRAP DVTVVQWT27bfSe TR Peak Gr.87rcOyLJFM27nxWf Pulmonary Vein S1 Tbedvwhu34.8cm/sD2 Bigejlcj78.5cm/s LEFT VENTRICLE The left ventricle is normal size. There is mild concentric left ventricular hypertrophy. Low normal left ventricular systolic function. The Ejection Fraction is 50%. There is normal LV segmental wall m otion. Transmitral Doppler flow pattern is Grade II-pseudonormal filling dynamics. RIGHT VENTRICLE The right ventricle is normal size. The right ventricular systolic function is normal. ATRIA The left atrium is mildly dilated. The right atrium is mildly dilated. The interatrial septum is inta ct with no evidence for an atrial septal defect or patent foramen ovale as noted on 2-D or Doppler im aging. AORTIC VALVE The aortic valve is calcified but opens well. Doppler and Color Flow revealed no significant aortic r egurgitation. There is no significant aortic valvular stenosis. MITRAL VALVE The mitral valve is calcified but opens well. Posterior mitral annular calcification is mild. There i s no evidence of mitral valve prolapse. There is no mitral valve stenosis. Doppler and Color-flow rev ealed trace mitral regurgitation. TRICUSPID VALVE The tricuspid valve is normal in structure and function. Doppler and Color Flow revealed trace tricus pid regurgitation. There is moderate pulmonary hypertension. The PA pressure was estimated at 45 mmHg . There is no tricuspid valve stenosis. PULMONIC VALVE The pulmonic valve is not well visualized. Doppler and Color Flow revealed mild pulmonic valvular reg urgitation. There is no pulmonic valvular stenosis. GREAT VESSELS The aortic root is normal in size. The ascending aorta is not well seen. The IVC is dilated and colla pses <50% with inspiration. PERICARDIAL EFFUSION There is no evidence of significant pericardial effusion. Critical Notification Critical Value: No <Conclusion> Low normal left ventricular systolic function. The Ejection Fraction is 50%. The left atrium is mildly dilated. Trace mitral regurgitation. Trace tricuspid regurgitation. There is moderate pulmonary hypertension. The PA pressure was estimated at 45 mmHg. There is no evidence of significant pericardial effusion. Signed by : Erica Aden, Electronically Approved : 04/29/2018 11:07:02
== END | disposition home or self-care (01) ==
LOC: ECHO 10:03
PROVIDERS: ATTEND Internal Medicine Cardiovascular Disease
DX: I13.0 Hypertensive heart and chronic kidney disease with heart failure and stage 1 through stage 4 chronic kidney disease, or unspecified chronic kidney disease (principal); E11.22 Type 2 diabetes mellitus with diabetic chronic kidney disease; I50.32 Chronic diastolic (congestive) heart failure; N18.3 Chronic kidney disease, stage 3 (moderate); I27.20 Pulmonary hypertension, unspecified
CPT/HCPCS: 93306

== ENCOUNTER 2018-10-24 14:04 | Emergency (ER) | payer OTHER ==
[~2018-10-24] VITALS: Ht 170.2 cm; Wt 178.7 kg
[~2018-10-24 14:04] MED LIST changes: +ALBU2.5V8 IH; -AMLO10TA6 PO; +AMLO10TA8 PO; -GABA600T2 PO; +GABA600T7 PO; -HYDR-2762 PO; +HYDR-2765 PO; +HYDR-3164 PO; -HYDR-971 PO; +LOSA-73 PO; +LOSA100T14 PO; -LOSA100T7 PO; -LOSA50TA7 PO; -OXYC-323 PO; -OXYC-328 PO; +OXYC1TAB15 PO; +OXYC1TAB22 PO; -PROAIR HFA8.5 GM IH
[2018-10-24] MEDS ORDERED: VANCOMYCIN PER PHARMACY MC ONE (14:30)
[2018-10-24 14:38] LABS: BASO % 0 % (0-3); EOS # 0.1 x10^3/uL (0.0-0.7); EOS % 1 % (0-3); HEMATOCRIT 34.3 % (36.0-47.0); HEMOGLOBIN 10.7 g/dL (12.0-15.5); LYMPH # 1.5 x10^3/uL (1.0-4.8); LYMPH % 19 % (24-48); MEAN CORPUSCULAR HEMOGLOBIN 23 pg (25-35); MEAN CORPUSCULAR HGB CONC 31 g/dL (31-37); MEAN CORPUSCULAR VOLUME 75 fL (79-100); MONO # 0.8 x10^3/uL (0.0-1.1); MONO % 10 % (0-9); NEUT # 5.7 x10^3uL (1.8-7.7); NEUT % 70 % (31-73); PLATELET COUNT 242 x10^3/uL (140-400); RED BLOOD COUNT 4.57 x10^6/uL (3.50-5.40); RED CELL DISTRIBUTION WIDTH 16.9 % (11.5-14.5); WHITE BLOOD COUNT 8.1 x10^3/uL (4.0-11.0)
[2018-10-24 14:46] LABS: CALCIUM 9.5 mg/dL (8.5-10.1); CREATININE 1.1 mg/dL (0.6-1.0); GFR 61.3; POTASSIUM 3.7 mmol/L (3.5-5.1)
[2018-10-24] MEDS: MORPHINE SULFATE 4 MG/ML VIAL. IV/SQ PRN ×2 (14:46→15:29)
[2018-10-24 14:52] LABS: ALBUMIN 2.6 g/dL (3.4-5.0); ALBUMIN/GLOBULIN RATIO 0.5 (1.0-1.7); TOTAL BILIRUBIN 0.2 mg/dL (0.2-1.0); TOTAL PROTEIN 7.8 g/dL (6.4-8.2)
[2018-10-24] MEDS ORDERED: ONDANSETRON PF 4 MG/2 ML VIAL. ONE (14:54)
[2018-10-24] MEDS ORDERED: IOHEXOL 300 MG/ML 100ML VIAL. IV ONE (15:00)
[2018-10-24] MEDS ORDERED: LABETALOL 20 MG/4 ML DISP.SYRIN. IVP ONE (15:00)
[2018-10-24] MEDS ORDERED: PIPERACILLIN/TAZOBACTAM 4.5 GM in IV NORMAL SALINE 100ML 100 ML IV ONE (15:00)
[2018-10-24] MEDS ORDERED: CONTRAST GIVEN. MC PRN (15:00)
--- NOTE | 2018-10-24 15:35 | RAD ---
AP view of the chest. Comparison: Chest radiograph dated 07/12/2017. Indication: headache, elevated BP Findings: Slightly low lung volume. No focal consolidation. Unchanged pulmonary vasculature. No pleural effusion or pneumothorax. Unchanged cardiomegaly. The great vessels of the thorax are unchanged. No acute osseous abnormality. IMPRESSION: 1. No focal consolidation. 2. Unchanged cardiomegaly. Electronically signed by: Navjot Ingram MD (10/24/2018 3:32 PM) [facility]
--- NOTE | 2018-10-24 15:44 | PHYS DOC ---
Past Medical History Past Medical History: Asthma, CHF, COPD, Diabetes-Type II, Hypertension Additional Past Medical Histor: neuropathy, morbid obesity Past Surgical History: Other Additional Past Surgical Histo: STENTS Alcohol Use: Occasionally Drug Use: None Adult General Chief Complaint Chief Complaint: FACE PROBLEM HPI HPI Patient is a 58 year old female with history of diabetes, hypertension, high cholesterol, CHF, COPD, who presents to the ED today complaining over 10 out of 10 generalized headache and right facial swelling that began this morning when she woke up. Patient denies this being the worst headache in her life. She states the headache is coming from the dental pain. She states she does not have any teeth though. She states her right facial swelling was notably began on the left when she woke up this morning. Denies any fever or trismus. Denies any chest pain or shortness of breath. She states she is on a lot of medications and has not taken any of them since she woke up this morning because of her symptoms. Review of Systems Review of Systems Constitutional: Denies fever or chills [] Eyes: Denies change in visual acuity, redness, or eye pain [] HENT: Reports right-sided facial swelling. Denies nasal congestion or sore throat [] Respiratory: Denies cough or shortness of breath [] Cardiovascular: No additional information not addressed in HPI [] GI: Denies abdominal pain, nausea, vomiting, bloody stools or diarrhea [] : Denies dysuria or hematuria [] Musculoskeletal: Denies back pain or joint pain [] Integument: Denies rash or skin lesions [] Neurologic: Reports headache, denies focal weakness or sensory changes [] Endocrine: Denies polyuria or polydipsia [] All other systems were reviewed and found to be within normal limits, except as documented in this note. Current Medications Current Medications Current Medications Medications (Trade) Dose Ordered Sig/Lui Start Time Stop Time Status Last Admin Dose Admin Clonidine HCl (Catapres) 0.2 mg 1X ONCE 10/24/18 18:00 10/24/18 18:01 DC 10/24/18 18:06 0.2 MG Hydralazine HCl (Apresoline Inj) 10 mg 1X ONCE 10/24/18 18:00 10/24/18 18:01 DC 10/24/18 18:06 10 MG Info (CONTRAST GIVEN -- Rx MONITORING) 1 each PRN DAILY PRN 4/7/19 15:00 10/26/18 14:59 Iohexol (Omnipaque 300 Mg/ml) 70 ml 1X ONCE 10/24/18 15:00 10/24/18 15:01 DC 10/24/18 15:00 70 ML Labetalol HCl (Normodyne Iv Push) 10 mg 1X ONCE 10/24/18 15:00 10/24/18 15:01 DC 10/24/18 14:49 10 MG Methylprednisolone Sodium Succinate (SOLU-Medrol 125MG VIAL) 125 mg 1X ONCE 10/24/18 17:30 10/24/18 17:31 DC 10/24/18 17:43 125 MG Morphine Sulfate (Morphine Sulfate) 4 mg PRN Q15MIN PRN 10/24/18 14:30 10/25/18 14:29 10/24/18 15:29 4 MG Ondansetron HCl (Zofran) 4 mg STK-MED ONCE 10/24/18 14:54 10/24/18 14:55 DC Piperacillin Sod/ Tazobactam Sod 4.5 gm/Sodium Chloride 100 ml @ 200 mls/hr 1X ONCE 10/24/18 15:00 10/24/18 15:29 DC 10/24/18 14:50 200 MLS/HR Vancomycin HCl (Vanco Per Pharmacy) 1 each 1X ONCE 10/24/18 14:30 10/24/18 14:31 Cancel Vancomycin HCl 2 gm/Sodium Chloride 500 ml @ 250 mls/hr 1X ONCE 10/24/18 16:00 10/24/18 17:59 DC 10/24/18 15:34 250 MLS/HR Allergies Allergies Allergies Coded Allergies Type Severity Reaction Last Updated Verified No Known Drug Allergies 04/08/15 No Physical Exam Physical Exam Constitutional: Well developed, well nourished, no acute distress, non-toxic appearance. [] HENT: Normocephalic, atraumatic, bilateral external ears normal, nose normal. [] Patient is mostly edentulous with only 1 tooth left on the left lower gum. There is moderate swelling on the right lower cheek are consistent with an abscess, gums on the left side are erythematous and swollen too with no obvious drainable abscess. Eyes: PERRLA, EOMI, conjunctiva normal, no discharge. [] Neck: Normal range of motion, no tenderness, supple, no stridor. [] Cardiovascular:Heart rate regular rhythm, no murmur [] Lungs & Thorax: Bilateral breath sounds clear to auscultation [] Abdomen: Bowel sounds normal, soft, no tenderness, no masses, no pulsatile masses. [] Skin: Warm, dry, no erythema, no rash. [] Back: No tenderness, no CVA tenderness. [] Extremities: No tenderness, no cyanosis, no clubbing, ROM intact, no edema. [] Neurologic: Alert and oriented X 3, normal motor function, normal sensory function, no focal deficits noted. Cranial nerves II through XII intact. Psychologic: Affect normal, judgement normal, mood normal. [] Current Patient Data Vital Signs Vital Signs Date Time Temp Pulse Resp B/P (MAP) Pulse Ox O2 Delivery O2 Flow Rate FiO2 10/24/18 18:30 88 150/81 (104) 97 10/24/18 15:29 Room Air 10/24/18 15:02 98.8 16 98.8 Lab Values Laboratory Tests Test 10/24/18 14:15 10/24/18 18:15 White Blood Count 8.1 x10^3/uL (4.0-11.0) Red Blood Count 4.57 x10^6/uL (3.50-5.40) Hemoglobin 10.7 g/dL (12.0-15.5) L Hematocrit 34.3 % (36.0-47.0) L Mean Corpuscular Volume 75 fL (79-100) L Mean Corpuscular Hemoglobin 23 pg (25-35) L Mean Corpuscular Hemoglobin Concent 31 g/dL (31-37) Red Cell Distribution Width 16.9 % (11.5-14.5) H Platelet Count 242 x10^3/uL (140-400) Neutrophils (%) (Auto) 70 % (31-73) Lymphocytes (%) (Auto) 19 % (24-48) L Monocytes (%) (Auto) 10 % (0-9) H Eosinophils (%) (Auto) 1 % (0-3) Basophils (%) (Auto) 0 % (0-3) Neutrophils # (Auto) 5.7 x10^3uL (1.8-7.7) Lymphocytes # (Auto) 1.5 x10^3/uL (1.0-4.8) Monocytes # (Auto) 0.8 x10^3/uL (0.0-1.1) Eosinophils # (Auto) 0.1 x10^3/uL (0.0-0.7) Basophils # (Auto) 0.0 x10^3/uL (0.0-0.2) Sodium Level 142 mmol/L (136-145) Potassium Level 3.7 mmol/L (3.5-5.1) Chloride Level 104 mmol/L (98-107) Carbon Dioxide Level 27 mmol/L (21-32) Anion Gap 11 (6-14) Blood Urea Nitrogen 15 mg/dL (7-20) Creatinine 1.1 mg/dL (0.6-1.0) H Estimated GFR (Cockcroft-Gault) 61.3 BUN/Creatinine Ratio 14 (6-20) Glucose Level 114 mg/dL (70-99) H Lactic Acid Level 0.9 mmol/L (0.4-2.0) 0.9 mmol/L (0.4-2.0) Calcium Level 9.5 mg/dL (8.5-10.1) Total Bilirubin 0.2 mg/dL (0.2-1.0) Aspartate Amino Transferase (AST) 14 U/L (15-37) L Alanine Aminotransferase (ALT) 15 U/L (14-59) Alkaline Phosphatase 117 U/L (46-116) H Creatine Kinase 95 U/L (26-192) Creatine Kinase MB (Mass) 1.0 ng/mL (0.0-3.6) Creatine Kinase MB Relative Index 1.1 % (0-4) Troponin I Quantitative < 0.017 ng/mL (0.000-0.055) Total Protein 7.8 g/dL (6.4-8.2) Albumin 2.6 g/dL (3.4-5.0) L Albumin/Globulin Ratio 0.5 (1.0-1.7) L Procalcitonin < 0.10 ng/mL (0.00-0.10) Laboratory Tests 10/24/18 14:15 Laboratory Tests 10/24/18 14:15 EKG EKG 14:[address] Pascal sinus rhythm HR 84 no STEMI[] Radiology/Procedures Radiology/Procedures []PROCEDURE: CT HEAD WO CONTRAST CT HEAD WO CONTRAST Date: 10/24/2018 3:54 PM Clinical Indication: HEADACHE Comparison: None. Technique: 5 mm axial tomographic images were obtained of the head without contrast. These were viewed on brain and bone windows. Findings: Mild generalized cerebral and cerebellar volume loss. Mild nonspecific periventricular hypoattenuation, most commonly seen with chronic small vessel ischemic disease. No intra- or extra-axial mass or fluid collection. No acute hemorrhage. The ventricles are normal in size, shape, and morphology. The hoff-white matter junction is normal. The basilar cisterns are patent. The mastoid air cells are clear. No aggressive osseous lesion or fracture. HEAD IMPRESSION: 1. No acute intracranial process. 2. Mild cerebral volume loss. Mild chronic small vessel ischemic disease. CT MAXILLOFACIAL WITH CONTRAST History: Right facial swelling, concern for dental abscess COMPARISON: CT face dated 05/16/2017 Technique: Axial helical images of the face were obtained with contrast. Axial and coronal reconstruction was performed. 70 mL of Omni 300 was utilized for the exam. Findings: 2.8 x 1.4 x 2.1 cm peripherally enhancing collection adjacent to the right maxilla which contains a few foci of air. There is osseous erosion of the immediately adjacent right maxillary extending into an area periapical lucency around a right maxillary tooth. Moderate right facial swelling and mild fat stranding. Nearby prominent lymph node, likely reactive. Very poor dentition with many absent teeth. Numerous dental caries in the remaining teeth with several periapical lucencies. Moderate right maxillary sinus mucosal thickening. Right sphenoid sinus frothy secretions. The orbits are normal. The globes are intact. The nasal septum is mostly midline. The ostiomeatal complexes are narrow but patent. FACE IMPRESSION: 1. 2.8 x 1.4 x 2.1 cm peripherally enhancing collection adjacent to the right maxilla which contains a few foci of air. Adjacent right maxillary osseous erosion extending into the area of a right maxillary tooth periapical lucency confirming odontogenic origin. The foci of air raises concern for gas-forming organism indicating increased importance for emergent surgical consultation. 2. Moderate right facial swelling and mild fat stranding. The findings were reported to [facility] at 10/24/2018 4:46 PM. FOR INTERNAL CODING PURPOSES RESULT CODE: (C) Electronically signed by: Navjot Ingram MD (10/24/2018 4:48 PM) [facility] DICTATED and SIGNED BY: NAVJOT INGRAM MD DATE: 10/24/18 6647 Course & Med Decision Making Course & Med Decision Making Pertinent Labs and Imaging studies reviewed. (See chart for details) This is a 58-year-old female presenting to the ED today complaining of dental pain, left-sided facial swelling/dental abscess that began this morning when she woke up. Vitals on arrival to the ED temperature 98.8, heart rate 84, respirations 16, blood pressure 227/105, O2 sats 97% on room air. Patient was given labetalol, slight improvement in blood pressure. Given hydralazine and clonidine, blood pressure 150/81. Patient was started on the sepsis protocol on arrival to the ED including IV Zosyn and vancomycin. We did not start patient on IV fluids because she has history of CHF, her white count was also normal, she was afebrile. Radiologist called me, he was concerned patient has right maxillary necrotizing fasciitis. CBC with normal WBC, CMP with no acute findings. Lactic stroke 0.9. Spoke with at ENT who accepted patient to ICU. Spoke with Dr. Yoni Kang who accepted patient at [facility] as the admitting physician 18:45 EMS in the ED taking patient to [facility] Disclaimer Dragon Disclaimer This electronic medical record was generated, in whole or in part, using a voice recognition dictation system. Departure Departure Impression: Primary Impression: Dental abscess Additional Impression: Accelerated hypertension Disposition: 05 TRANSFER OTHER Condition: STABLE Referrals: ALBA GUERRA MD (PCP) Problem Qualifiers [facility] Oct 24, 2018 15:44
[2018-10-24] MEDS ORDERED: VANCOMYCIN 2 GM in IV NORMAL SALINE 500ML BAG 500 ML IV ONE (16:00)
--- NOTE | 2018-10-24 16:51 | RAD ---
CT HEAD WO CONTRAST Date: 10/24/2018 3:54 PM Clinical Indication: HEADACHE Comparison: None. Technique: 5 mm axial tomographic images were obtained of the head without contrast. These were viewed on brain and bone windows. Findings: Mild generalized cerebral and cerebellar volume loss. Mild nonspecific periventricular hypoattenuation, most commonly seen with chronic small vessel ischemic disease. No intra- or extra-axial mass or fluid collection. No acute hemorrhage. The ventricles are normal in size, shape, and morphology. The hoff-white matter junction is normal. The basilar cisterns are patent. The mastoid air cells are clear. No aggressive osseous lesion or fracture. HEAD IMPRESSION: 1. No acute intracranial process. 2. Mild cerebral volume loss. Mild chronic small vessel ischemic disease. CT MAXILLOFACIAL WITH CONTRAST History: Right facial swelling, concern for dental abscess COMPARISON: CT face dated 05/16/2017 Technique: Axial helical images of the face were obtained with contrast. Axial and coronal reconstruction was performed. 70 mL of Omni 300 was utilized for the exam. Findings: 2.8 x 1.4 x 2.1 cm peripherally enhancing collection adjacent to the right maxilla which contains a few foci of air. There is osseous erosion of the immediately adjacent right maxillary extending into an area periapical lucency around a right maxillary tooth. Moderate right facial swelling and mild fat stranding. Nearby prominent lymph node, likely reactive. Very poor dentition with many absent teeth. Numerous dental caries in the remaining teeth with several periapical lucencies. Moderate right maxillary sinus mucosal thickening. Right sphenoid sinus frothy secretions. The orbits are normal. The globes are intact. The nasal septum is mostly midline. The ostiomeatal complexes are narrow but patent. FACE IMPRESSION: 1. 2.8 x 1.4 x 2.1 cm peripherally enhancing collection adjacent to the right maxilla which contains a few foci of air. Adjacent right maxillary osseous erosion extending into the area of a right maxillary tooth periapical lucency confirming odontogenic origin. The foci of air raises concern for gas-forming organism indicating increased importance for emergent surgical consultation. 2. Moderate right facial swelling and mild fat stranding. The findings were reported to JUAN FRANCISCO MILLS at 10/24/2018 4:46 PM. FOR INTERNAL CODING PURPOSES RESULT CODE: (C) Electronically signed by: Navjot Ingram MD (10/24/2018 4:48 PM) [facility]
[2018-10-24] MEDS ORDERED: methylPREDNISolone SOD SUCC PF 125 MG/2 ML VIAL. IV ONE (17:30)
[2018-10-24] MEDS ORDERED: hydrALAZINE 20 MG/ML VIAL. IVP ONE (18:00)
[2018-10-24] MEDS ORDERED: cloNIDine HCL 0.1 MG TABLET PO ONE (18:00)
[2018-10-24 18:30] VITALS: BP 150/81
--- NOTE | 2018-10-25 07:40 | EKG ---
[facility] [address] [place] [address] Test Date: 2018-10-24 Test Time: 14:12:17 Pat Name: MARIKA SMITH Department: Room: Gender: F Business [employer] Rec[employer]: : [id number] Requested By: JUAN FRANCISCO MILLS Order Number: [id number] Reading MD: Chuy Kyle MD Measurements Intervals [place] Rate: 84 P: 46 ME: 170 QRS: -29 QRSD: 124 T: -1 QT: 426 QTc: 507 Interpretive Statements SINUS RHYTHM LEFTWARD AXIS RIGHT BUNDLE BRANCH BLOCK QRS(T) CONTOUR ABNORMALITY CONSIDER ANTEROLATERAL MYOCARDIAL DAMAGE ABNORMAL ECG Electronically Signed On 10-25-2018 10:20:38 CDT by Chuy Kyle MD
== END 2018-10-24 18:53 | disposition short-term general hospital (02) ==
LOC: ER 14:04
DX: K04.7 Periapical abscess without sinus (principal); I11.0 Hypertensive heart disease with heart failure; I50.9 Heart failure, unspecified; R51 Headache; E11.40 Type 2 diabetes mellitus with diabetic neuropathy, unspecified; E66.01 Morbid (severe) obesity due to excess calories; Z68.44 Body mass index [BMI] 60.0-69.9, adult; J44.9 Chronic obstructive pulmonary disease, unspecified; Z95.5 Presence of coronary angioplasty implant and graft
CPT/HCPCS: 36415; 70450; 70487; 71045; 80053; 82553; 83605; 84145; 84484; 85025; 87040; 93005; 96365; 96367; 96375; 96376; 99285; J0360; J2270; J2543; J2930; J3370; J3490; J7040; Q9967

== ENCOUNTER → 2019-03-24 | Outpatient (CLI) | payer OTHER ==
[~2019-03-24] MED LIST changes: -AMLO1CAP10 PO; +AMLO1CAP11 PO; -AMLO1CAP15 PO; +AMLO1CAP54 PO; +METF500T11 PO; -METF500T9 PO; -PANT40TA3 PO; +PANT40TA77 PO
--- NOTE | 2019-03-24 14:48 | RAD ---
DATE: 03/24/2019 7:54 AM EXAM: DIGITAL SCREEN BILAT W/CAD HISTORY: routine screening evaluation. COMPARISON: New baseline examination Bilateral full field craniocaudal, laterally exaggerated craniocaudal and mediolateral oblique images were obtained using digital technique. This study was interpreted with the benefit of Computerized Aided Detection (CAD). FINDINGS: Breast Density: SCATTERED The breast parenchyma shows scattered fibroglandular densities. Breast parenchyma level B Benign calcifications are present. Well-circumscribed nodule seen in the lateral, superior left breast at a posterior depth as well as in the medial, slightly superior right breast at the posterior depth. No suspicious architectural distortion or suspicious microcalcification is seen. The visualized axillae are unremarkable. IMPRESSION: Bilateral breast mass, findings for which additional imaging is advised. BI-RADS CATEGORY: 0 INCOMPLETE: NEEDS ADDITIONAL IMAGING EVALUATION AND/OR PRIOR MAMMOGRAMS FOR COMPARISON. RECOMMENDED FOLLOW-UP: ADD ADDITIONAL IMAGING additional imaging to include ultrasound of both breasts is recommended. PQRS compliance statement: Patient information was entered into a reminder system with a target due date for the next mammogram. Mammography is a sensitive method for finding small breast cancers, but it does not detect them all and is not a substitute for careful clinical examination. A negative mammogram does not negate a clinically suspicious finding and should not result in delay in biopsying a clinically suspicious abnormality. "Our facility is accredited by the [employer] Mammography Program."
== END | disposition home or self-care (01) ==
LOC: MAMMO 07:51
PROVIDERS: ATTEND Family Medicine
DX: Z12.31 Encounter for screening mammogram for malignant neoplasm of breast (principal)
CPT/HCPCS: 77067

== ENCOUNTER → 2019-04-18 | Outpatient (CLI) | payer OTHER ==
[~2019-04-18] MED LIST changes: -NITR0.4T SL; +NITR0.4T24 SL
--- NOTE | 2019-04-19 15:32 | RAD ---
DATE: 04/18/2019 EXAM: DIGITAL DIAGNOSTIC BILATERAL, BREAST BILATERAL HISTORY: Abnormal mammogram COMPARISON: 03/24/2019 screen mammographic exam This study was interpreted with the benefit of Computerized Aided Detection (CAD). Breast Density: SCATTERED The breast parenchyma shows scattered fibroglandular densities. Breast parenchyma level B. FINDINGS: Persistence of the upper outer breast masses on spot compression imaging is noted. Limited bilateral breast ultrasound exam was performed. At the right breast 1:00 region, there is a 0.7 cm x 0.7 cm x 0.4 cm tall well-circumscribed structure which appears to have a fatty hilum approximately 16 cm from the nipple. At the left upper-outer 2:00 region 16 cm from the nipple, there is a 1.9 cm x 1 cm x 0.9 standard tall lymph node. Uniform cortical echotexture. Mild cortical thickening which is uniform up to 0.3 cm is identified with a fatty hilum. IMPRESSION: Left upper outer breast lymph node. Right breast lesion which probably also represents a lymph node. BI-RADS CATEGORY: 3 PROBABLY BENIGN FINDING(S)-SHORT INTERVAL FOLLOW-UP SUGGESTED six-month follow-up bilateral breast ultrasound recommended to assess stability. RECOMMENDED FOLLOW-UP: 6M 6 MONTH FOLLOW-UP PQRS compliance statement: Patient information was entered into a reminder system with a target due date pending six-month follow-up ultrasound for the next mammogram. Mammography is a sensitive method for finding small breast cancers, but it does not detect them all and is not a substitute for careful clinical examination. A negative mammogram does not negate a clinically suspicious finding and should not result in delay in biopsying a clinically suspicious abnormality. "Our facility is accredited by the [employer] Mammography Program."
== END | disposition home or self-care (01) ==
LOC: MAMMO 07:57
PROVIDERS: ATTEND Family Medicine
DX: N63.21 Unspecified lump in the left breast, upper outer quadrant (principal)
CPT/HCPCS: 76641; 77066

== ENCOUNTER 2019-06-18 15:33 | Inpatient (IN) | payer OTHER ==
[~2019-06-18] VITALS: Ht 170.2 cm; Wt 187.1 kg
[2019-06-18] MEDS: POTASSIUM CHLORIDE 20 MEQ TABLET.ER. PO SCH ×2 (08:00→22:04)
[~2019-06-18 15:33] MED LIST changes: +OXYB5TAB10 PO; -OXYB5TAB7 PO
--- NOTE | 2019-06-18 16:13 | PHYS DOC ---
Past Medical History Past Medical History: Asthma, CHF, COPD, Hypertension Additional Past Medical Histor: neuropathy, morbid obesity Past Surgical History: Other Additional Past Surgical Histo: STENTS Alcohol Use: Occasionally Drug Use: None Adult General Chief Complaint Chief Complaint: CHEST PAIN HPI HPI Patient is a 59 year old female who presents with shortness of breath and chest pain that's been intermittently ongoing for 2 weeks. The patient states she took nitroglycerin today before arrival and not relieved her chest pain some. She states the chest pain radiates to her back and her right shoulder. She states she has a history of congestive heart failure, diabetes, dyslipidemia, hypertension, 6 stents, myocardial infarction, and COPD. She rates her pain as 8 out of 10 in severity and sharp. She states she took 2 baby aspirin today. He states that her primary care doctor is Dr. Figueroa, and her sign language interpreter is Dr. Cantu. Review of Systems Review of Systems Constitutional: Denies fever or chills [] Eyes: Denies change in visual acuity, redness, or eye pain [] HENT: Denies nasal congestion or sore throat [] Respiratory: Reports shortness of breath. Cardiovascular: No additional information not addressed in HPI [] GI: Denies abdominal pain, nausea, vomiting, bloody stools or diarrhea [] : Denies dysuria or hematuria [] Musculoskeletal: Denies back pain or joint pain [] Integument: Denies rash or skin lesions [] Neurologic: Denies headache, focal weakness or sensory changes [] Endocrine: Denies polyuria or polydipsia [] Complete systems were reviewed and found to be within normal limits, except as documented in this note. Current Medications Current Medications Current Medications Medications (Trade) Dose Ordered Sig/Lui Start Time Stop Time Status Last Admin Dose Admin Aspirin (Children'S Aspirin) 162 mg 1X ONCE 06/18/19 16:15 06/18/19 16:16 DC 06/18/19 16:15 162 MG Morphine Sulfate (Morphine Sulfate) 5 mg 1X STAT 06/18/19 16:39 06/18/19 16:41 DC 06/18/19 16:46 5 MG Ondansetron HCl (Zofran) 4 mg 1X STAT 06/18/19 16:39 06/18/19 16:41 DC 06/18/19 16:46 4 MG Allergies Allergies Allergies Coded Allergies Type Severity Reaction Last Updated Verified No Known Drug Allergies 04/08/15 No Physical Exam Physical Exam Constitutional: Well developed, well nourished, no acute distress, non-toxic appearance. [] HENT: Normocephalic, atraumatic, bilateral external ears normal, oropharynx moist, no oral exudates, nose normal. [] Eyes: PERRLA, EOMI, conjunctiva normal, no discharge. [] Neck: Normal range of motion, no tenderness, supple, no stridor. [] Cardiovascular:Heart rate regular rhythm, no murmur [] Lungs & Thorax: Bilateral breath sounds clear to auscultation [] Abdomen: Bowel sounds normal, soft, no tenderness, no masses, no pulsatile masses. [] Skin: Warm, dry, no erythema, no rash. [] Back: No tenderness, no CVA tenderness. [] Extremities: No tenderness, no cyanosis, no clubbing, ROM intact, no edema. [] Neurologic: Alert and oriented X 3, normal motor function, normal sensory function, no focal deficits noted. [] Psychologic: Affect normal, judgement normal, mood normal. [] Current Patient Data Vital Signs Vital Signs Date Time Temp Pulse Resp B/P (MAP) Pulse Ox O2 Delivery O2 Flow Rate FiO2 06/18/19 16:46 24 06/18/19 15:45 97.9 65 174/72 (106) 93 Room Air 97.9 Lab Values Laboratory Tests Test 06/18/19 15:56 White Blood Count 6.0 x10^3/uL (4.0-11.0) Red Blood Count 4.01 x10^6/uL (3.50-5.40) Hemoglobin 9.8 g/dL (12.0-15.5) L Hematocrit 30.8 % (36.0-47.0) L Mean Corpuscular Volume 77 fL (79-100) L Mean Corpuscular Hemoglobin 24 pg (25-35) L Mean Corpuscular Hemoglobin Concent 32 g/dL (31-37) Red Cell Distribution Width 16.2 % (11.5-14.5) H Platelet Count 239 x10^3/uL (140-400) Neutrophils (%) (Auto) 59 % (31-73) Lymphocytes (%) (Auto) 29 % (24-48) Monocytes (%) (Auto) 9 % (0-9) Eosinophils (%) (Auto) 3 % (0-3) Basophils (%) (Auto) 0 % (0-3) Neutrophils # (Auto) 3.6 x10^3/uL (1.8-7.7) Lymphocytes # (Auto) 1.7 x10^3/uL (1.0-4.8) Monocytes # (Auto) 0.5 x10^3/uL (0.0-1.1) Eosinophils # (Auto) 0.1 x10^3/uL (0.0-0.7) Basophils # (Auto) 0.0 x10^3/uL (0.0-0.2) Prothrombin Time 13.3 SEC (11.7-14.0) Prothrombin Time INR 1.0 (0.8-1.1) Activated Partial Thromboplast Time 35 SEC (24-38) Sodium Level 144 mmol/L (136-145) Potassium Level 3.7 mmol/L (3.5-5.1) Chloride Level 108 mmol/L (98-107) H Carbon Dioxide Level 29 mmol/L (21-32) Anion Gap 7 (6-14) Blood Urea Nitrogen 17 mg/dL (7-20) Creatinine 1.4 mg/dL (0.6-1.0) H Estimated GFR (Cockcroft-Gault) 46.3 BUN/Creatinine Ratio 12 (6-20) Glucose Level 129 mg/dL (70-99) H Calcium Level 8.6 mg/dL (8.5-10.1) Magnesium Level 1.9 mg/dL (1.8-2.4) Total Bilirubin 0.2 mg/dL (0.2-1.0) Aspartate Amino Transferase (AST) 14 U/L (15-37) L Alanine Aminotransferase (ALT) 10 U/L (14-59) L Alkaline Phosphatase 86 U/L (46-116) Creatine Kinase 256 U/L (26-192) H Creatine Kinase MB (Mass) 1.2 ng/mL (0.0-3.6) Creatine Kinase MB Relative Index 0.5 % (0-4) Troponin I Quantitative < 0.017 ng/mL (0.000-0.055) PD-Moi-C-Type Natriuretic Peptide 694 pg/mL (0-124) H Total Protein 6.4 g/dL (6.4-8.2) Albumin 2.3 g/dL (3.4-5.0) L Albumin/Globulin Ratio 0.6 (1.0-1.7) L Laboratory Tests 06/18/19 15:56 Laboratory Tests 06/18/19 15:56 EKG EKG EKG interpreted by Dr. Dickerson Sinus rhythm with rate of 66, Right bundle branch block, left axis deviation that wanders. T-wave inversion, She has ST depression in I, III, V4, V5, V6. This EKG has changed since the EKG it was compared to on 11/09/2017. Radiology/Procedures Radiology/Procedures [] Course & Med Decision Making Course & Med Decision Making Pertinent Labs and Imaging studies reviewed. (See chart for details) Will get labs, chest x-ray, and ekg, and will give 2 baby aspirin. EKG shows changes, initial troponin is negative, imaging is unremarkable. Creatinine is 1.4 which is elevated from its baseline of 1.0 in 2018. Will contact Dr. Roberson for admission to hospital. Will consult cardiology. Discussed with Dr. Roberson ([phone]) and he accepts admission to hospital. Dragon Disclaimer Dragon Disclaimer This electronic medical record was generated, in whole or in part, using a voice recognition dictation system. Departure Departure Impression: Primary Impression: Chest pain Additional Impressions: MIRIAM (acute kidney injury) Acute electrocardiogram changes Disposition: ADMITTED INPATIENT Admitting Physician: PARAMJIT Condition: STABLE Referrals: ALBA FIGUEROA MD (PCP) The HEART Score for CP Pts HEART Score for Chest Pain: HEART Score for Chest Pain Response (Comments) Value History Highly Suspicious [address] Depression 2 Age >45 - < 65 1 Risk Factors >3 Risk Factors or Hx CAD 2 Troponin < Normal Limit 0 Total 7 Risk Factors: Risk Factors: DM, Current or recent (<one month) smoker, HTN, HLP, family history of CAD, obesity. Risk Scores: Score 0 - 3: 2.5% MACE over next 6 weeks - Discharge Home Score 4 - 6: 20.3% MACE over next 6 weeks - Admit for Clinical Observation Score 7 - 10: 72.7% MACE over next 6 weeks - Early Invasive Strategies Problem Qualifiers Primary Impression: Chest pain Chest pain type: chest pain on breathing Qualified Codes: R07.1 - Chest pain on breathing CHRISTINA CARRANZA APRN Jun 18, 2019 16:13
[2019-06-18] MEDS ORDERED: ASPIRIN CHEWABLE 81 MG TABLET. PO ONE (16:15)
[2019-06-18 16:16] LABS: BASO % 0 % (0-3); EOS # 0.1 x10^3/uL (0.0-0.7); EOS % 3 % (0-3); HEMATOCRIT 30.8 % (36.0-47.0); HEMOGLOBIN 9.8 g/dL (12.0-15.5); LYMPH # 1.7 x10^3/uL (1.0-4.8); LYMPH % 29 % (24-48); MEAN CORPUSCULAR HEMOGLOBIN 24 pg (25-35); MEAN CORPUSCULAR HGB CONC 32 g/dL (31-37); MEAN CORPUSCULAR VOLUME 77 fL (79-100); MONO # 0.5 x10^3/uL (0.0-1.1); MONO % 9 % (0-9); NEUT # 3.6 x10^3/uL (1.8-7.7); NEUT % 59 % (31-73); PLATELET COUNT 239 x10^3/uL (140-400); RED BLOOD COUNT 4.01 x10^6/uL (3.50-5.40); RED CELL DISTRIBUTION WIDTH 16.2 % (11.5-14.5)
[2019-06-18 16:24] LABS: PROTHROMBIN TIME PATIENT 13.3 SEC (11.7-14.0)
[2019-06-18 16:39] LABS: CALCIUM 8.6 mg/dL (8.5-10.1); CREATININE 1.4 mg/dL (0.6-1.0); GFR 46.3; POTASSIUM 3.7 mmol/L (3.5-5.1)
[2019-06-18] MEDS ORDERED: ONDANSETRON PF 4 MG/2 ML VIAL. IV STA (16:39)
[2019-06-18] MEDS ORDERED: MORPHINE SULFATE 10 MG/ML VIAL. IV STA (16:39)
[2019-06-18 16:46] LABS: ALBUMIN 2.3 g/dL (3.4-5.0); ALBUMIN/GLOBULIN RATIO 0.6 (1.0-1.7); MAGNESIUM 1.9 mg/dL (1.8-2.4); TOTAL BILIRUBIN 0.2 mg/dL (0.2-1.0); TOTAL PROTEIN 6.4 g/dL (6.4-8.2)
--- NOTE | 2019-06-18 16:59 | RAD ---
PORTABLE CHEST 1V History: Shortness of breath, chest pain Comparison: October 24, 2018. Findings: Single view of the chest is submitted. Pericardial cardiac silhouette is again enlarged. There is no lobar consolidation, pleural fluid, pneumothorax. There is prominence of the central pulmonary vessels although similar. Impression: 1. There is again enlargement of the pericardial cardiac silhouette and prominence of the central pulmonary vasculature. Electronically signed by: Abhijit Ibarra MD (06/18/2019 4:56 PM) [facility] [place]
[2019-06-18] MEDS ORDERED: ONDANSETRON PF 4 MG/2 ML VIAL. IV PRN (17:15)
[2019-06-18] MEDS ORDERED: NITROGLYCERIN SUBLINGUAL 0.4 MG BOTTLE OF 25. SL PRN (17:15)
[2019-06-18] MEDS ORDERED: MORPHINE SULFATE 2 MG/ML VIAL. IV PRN (17:15)
--- NOTE | 2019-06-18 17:20 | PDOC1 ---
History and Physical Date of Admission Date of Admission DATE: 06/18/19 TIME: 17:20 Identification/Chief Complaint Chief Complaint Chest pain Source Source: Patient History of Present Illness History of Present Illness Ms Castro is a 59 year old female w/ PMHx Asthma, CHF, COPD, Hypertension, Dm2, neuropathy, morbid obesity, CAD s/p CARLOS x 6 who presents with chest pain. She rates her pain as 8 out of 10 in severity and sharp, is substernal, and radiates to her back and her right shoulder. She states she took 2 baby aspirin today. She notes associated shortness of breath for 2 weeks. The patient states she took nitroglycerin today before arrival and it relieved her chest pain but not her shortness of breath. In ED her EKG revealed new RBBB, though it does appear it was on her prior, just not noted, left axis deviation (new), and TWI in lateral leads as well as ST depression in I, III, V4, V5. She had negative troponin, but had Cr 1.4 and Hb 9.8 with MCV 77. CXR shows prom inent pulmonary vasculature. Past Medical History Cardiovascular: CAD, CHF, HTN, [place], Hyperlipidemia Pulmonary: Asthma, COPD CENTRAL NERVOUS SYSTEM: Periperal neuropathy GI: GERD Heme/Onc: Iron deficiency Anemia Hepatobiliary: No pertinent hx Psych: Anxiety, Depression Musculoskeletal: Osteoarthritis Rheumatologic: No pertinent hx Infectious disease: No pertinent hx Renal/: Chronic renal failure, Urinary Incontinence Endocrine: Diabetes Past Surgical History Past Surgical History: Other Family History Family History: Asthma, Chronic Bronchitis, Diabetes, Hypertension Social History Smoke: No ALCOHOL: rare Drugs: None Current Problem List Problem List Problems Medical Problems: (1) Acute electrocardiogram changes Status: Acute (2) MIRIAM (acute kidney injury) Status: Acute (3) Chest pain Status: Acute Current Medications Current Medications Current Medications Aspirin (Children'S Aspirin) 162 mg 1X ONCE PO Last administered on 06/18/19at 16:15; Start 06/18/19 at 16:15; Stop 06/18/19 at 16:16; Status DC Morphine Sulfate (Morphine Sulfate) 5 mg 1X STAT IV Last administered on 06/18/19at 16:46; Start 06/18/19 at 16:39; Stop 06/18/19 at 16:41; Status DC Ondansetron HCl (Zofran) 4 mg 1X STAT IV Last administered on 06/18/19at 1 6:46; Start 06/18/19 at 16:39; Stop 06/18/19 at 16:41; Status DC Ondansetron HCl (Zofran) 4 mg PRN Q8HRS PRN IV NAUSEA/VOMITING; Start 06/18/19 at 17:15; Stop 06/19/19 at 17:14 Morphine Sulfate (Morphine Sulfate) 2 mg PRN Q2HR PRN IV PAIN; Start 06/18/19 at 17:15; Stop 06/19/19 at 17:14 Nitroglycerin (Nitrostat) 0.4 mg PRN Q5MIN PRN SL CHEST PAIN; Start 06/18/19 at 17:15; Stop 06/19/19 at 17:14 Active Scripts Active Aspirin Ec (Aspirin) 325 Mg Tablet. 325 Mg PO DAILYWBKFT 30 Days Clopidogrel (Clopidogrel Bisulfate) 75 Mg Tablet 75 Mg PO DAILYWBKFT 75 Days Reported Amlodipine-Benazepril 10-40 Mg (Amlodipine Besylate/Benazepril) 1 Each Capsule 1 Cap PO DAILY Percocet 5-325 Mg Tablet (Oxycodone/Acetaminophen) 1 Each Tablet 1 Tab PO PRN Q8HRS PRN Novolog Flexpen (Insulin Aspart) 100 Unit/1 Ml Insuln.pen 60 Unit SQ TIDAC Hydroxyzine Hcl 50 Mg Tablet 50 Mg PO QID PRN Potassium Chloride 10 Meq Tab.sr.24h 20 Meq PO BID Metformin Hcl 500 Mg Tablet 500 Mg PO BIDWMEALS Losartan Potassium 100 Mg Tablet 100 Mg PO DAILY Lansoprazole 30 Mg Capsule. 1 Cap PO DAILY Aspirin 325 Mg Tablet 1 Tab PO DAILY Proair Respiclick (Albuterol Sulfate) 90 Mcg Aer.pow.ba 2 Puff IH PRN Q4-6HRS PRN Cyclobenzaprine Hcl 10 Mg Tablet 1 Tab PO TID PRN Protonix (Pantoprazole Sodium) 40 Mg Tablet. 1 Tab PO DAILY Requip (Ropinirole Hcl) 1 Mg Tablet 1 Tab PO QHS Levemir (Insulin Detemir) 100 Unit/1 Ml Vial 70 Unit SQ HS Crestor (Rosuvastatin Calcium) 20 Mg Tablet 20 Mg PO HS LAST DOSE: 10/01/15 BEDTIME NEXT DOSE: 10/02/15 BEDTIME Oxybutynin Chloride 5 Mg Tablet 1 Tab PO BID LAST DOSE: 10/02/15 NEXT DOSE: 10/03/15 AM Ferrous Sulfate 325 Mg Tablet 1 Tab PO DAILY LAST DOSE: 10/02/15 NEXT DOSE: 10/03/15 AM Voltaren (Diclofenac Sodium) 100 Gm Gel..gram. 1 Gm TP BID Isosorbide Mononitrate Er (Isosorbide Mononitrate) 60 Mg Tab.er.24h 2 Tab PO DAILY LAST DOSE: 10/02/15 NEXT DOSE: 10/03/15 AM Albuterol Sulfate Neb Soln (Albuterol Sulfate) 0.63 Mg/3 Ml Vial.neb 1 Vial NEB TID Nitrostat (Nitroglycerin) 0.4 Mg Tab.subl 1 Tab SL UD Furosemide 40 Mg Tablet 1 Tab PO BID LAST DOSE: 10/01/15 NEXT DOSE: 10/03/15 AM Allergies Allergies: Coded Allergies: No Known Drug Allergies (Unverified , 04/08/15) ROS General: YES: Fatigue, Malaise; No: Chills, Night Sweats, Appetite, Other PSYCHOLOGICAL ROS: No: Anxiety, Behavioral Disorder, Concentration difficultie, Decreased libido, Depression, Disorientation, Hallucinations, Hostility, Irritablity, Memory difficulties, Mood Swings, Obsessive thoughts, Physical abuse, Sexual abuse, Sleep disturbances, Suicidal ideation, Other Eyes: No Blurry vision, No Decreased vision, No Double vision, No Dry eyes, No Excessive tearing, No Eye Pain, No Itchy Eyes, No Loss of vision, No Photophobia, No Scotomata, No Uses contacts, No Uses glasses, No Other HEENT: No: Heacaches, Visual Changes, Hearing change, Nasal congestion, Nasal discharge, Oral lesions, Sinus pain, Sore Throat, Epistaxis, Sneezing, Snoring, Tinnitus, Vertigo, Vocal changes, Other ALLERGY AND IMMUNOLOGY: No: Hives, Insect Bite Sensitivity, Itchy/Watery Eyes, Nasal Congestion, Post Nasal Drip, Seasonal Allergies, Other Hematological and Lymphatic: No: Bleeding Problems, Blood Clots, Blood Transfusions, Brusing, Night Sweats, Pallor, Swollen Lymph Nodes, Other ENDOCRINE: No: Breast Changes, Galactorrhea, Hair Pattern Changes, Hot Flashes, Malaise/lethargy, Mood Swings, Palpitations, Polydipsia/polyuria, Skin Changes, Temperature Intolerance, Unexpected Weight Changes, Other Breast: No New/Changing Breast Lumps, No Nipple changes, No Nipple discharge, No Other Respiratory: YES: Shortness of breath, SOB with excertion, Wheezing; No: Cough, Hemoptysis, Orthopnea, Pleuritic Pain, Sputum Changes, Stridor, Tachypnea, Other Cardiovascular: yes Chest Pain; No Palpitations, No Orthopnea, No Paroxysmal Noc. Dyspnea, No Edema, No Lt Headedness, No Other Gastrointestinal: No Nausea, No Vomiting, No Abdominal Pain, No Diarrhea, No Constipation, No Melena, No Hematochezia, No Other Genitourinary: No Dysuria, No Frequency, No Incontinence, No Hematuria, No Retention, No Discharge, No Urgency, No Pain, No Flank Pain, No Other, No , No , No , No , No , No , No Musculoskeletal: No Gait Disturbance, No Joint Pain, No Joint Stiffness, No Joint Swelling, No Muscle Pain, No Muscular Weakness, No Pain In:, No Swelling In:, No Other Neurological: No Behavorial Changes, No Bowel/Bladder ControlChng, No Confusion, No Dizziness, No Gait Disturbance, No Headaches, No Impaired Coord/balance, No Memory Loss, No Numbness/Tingling, No Seizures, No Speech Problems, No Tremors, No Visual Changes, No Weakness, No Other Skin: No Dry Skin, No Eczema, No Hair Changes, No Lumps, No Mole Changes, No Mottling, No Nail Changes, No Pruritus, No Rash, No Skin Lesion Changes, No Other, No Acne Physical Exam General: Alert, Oriented X3, Cooperative, No acute distress HEENT: Atraumatic, PERRLA, EOMI, Mucous membr. moist/pink Lungs: Clear to auscultation, Normal air movement Heart: S1S2, RRR, no thrills, no rubs, no gallops, no murmurs Abdomen: Normal bowel sounds, Soft, No tenderness, No hepatosplenomegaly, No masses Rectal Exam: not examined Extremities: No clubbing, No cyanosis, No edema, Normal pulses, No tenderness/swelling Skin: No rashes, No breakdown, No significant lesion Neuro: Normal gait, Normal speech, Strength at 5/5 X4 ext, Normal tone, Sensation intact, Cranial nerves 3-12 NL, Reflexes 2+ Psych/Mental Status: Mental status NL, Mood NL Vitals Vitals Vital Signs Date Time Temp Pulse Resp B/P (MAP) Pulse Ox O2 Delivery O2 Flow Rate FiO2 06/18/19 16:46 24 06/18/19 15:45 97.9 65 174/72 (106) 93 Room Air 97.9 Labs Labs Laboratory Tests Test 06/18/19 15:56 White Blood Count 6.0 x10^3/uL (4.0-11.0) Red Blood Count 4.01 x10^6/uL (3.50-5.40) Hemoglobin 9.8 g/dL (12.0-15.5) Hematocrit 30.8 % (36.0-47.0) Mean Corpuscular Volume 77 fL (79-100) Mean Corpuscular Hemoglobin 24 pg (25-35) Mean Corpuscular Hemoglobin Concent 32 g/dL (31-37) Red Cell Distribution Width 16.2 % (11.5-14.5) Platelet Count 239 x10^3/uL (140-400) Neutrophils (%) (Auto) 59 % (31-73) Lymphocytes (%) (Auto) 29 % (24-48) Monocytes (%) (Auto) 9 % (0-9) Eosinophils (%) (Auto) 3 % (0-3) Basophils (%) (Auto) 0 % (0-3) Neutrophils # (Auto) 3.6 x10^3/uL (1.8-7.7) Lymphocytes # (Auto) 1.7 x10^3/uL (1.0-4.8) Monocytes # (Auto) 0.5 x10^3/uL (0.0-1.1) Eosinophils # (Auto) 0.1 x10^3/uL (0.0-0.7) Basophils # (Auto) 0.0 x10^3/uL (0.0-0.2) Prothrombin Time 13.3 SEC (11.7-14.0) Prothromb Time International Ratio 1.0 (0.8-1.1) Activated Partial Thromboplast Time 35 SEC (24-38) Sodium Level 144 mmol/L (136-145) Potassium Level 3.7 mmol/L (3.5-5.1) Chloride Level 108 mmol/L (98-107) Carbon Dioxide Level 29 mmol/L (21-32) Anion Gap 7 (6-14) Blood Urea Nitrogen 17 mg/dL (7-20) Creatinine 1.4 mg/dL (0.6-1.0) Estimated GFR (Cockcroft-Gault) 46.3 BUN/Creatinine Ratio 12 (6-20) Glucose Level 129 mg/dL (70-99) Calcium Level 8.6 mg/dL (8.5-10.1) Magnesium Level 1.9 mg/dL (1.8-2.4) Total Bilirubin 0.2 mg/dL (0.2-1.0) Aspartate Amino Transf (AST/SGOT) 14 U/L (15-37) Alanine Aminotransferase (ALT/SGPT) 10 U/L (14-59) Alkaline Phosphatase 86 U/L (46-116) Creatine Kinase 256 U/L (26-192) Creatine Kinase MB (Mass) 1.2 ng/mL (0.0-3.6) Creatine Kinase MB Relative Index 0.5 % (0-4) Troponin I Quantitative < 0.017 ng/mL (0.000-0.055) LD-Mcu-M-Type Natriuretic Peptide 694 pg/mL (0-124) Total Protein 6.4 g/dL (6.4-8.2) Albumin 2.3 g/dL (3.4-5.0) Albumin/Globulin Ratio 0.6 (1.0-1.7) Laboratory Tests Test 06/18/19 15:56 White Blood Count 6.0 x10^3/uL (4.0-11.0) Red Blood Count 4.01 x10^6/uL (3.50-5.40) Hemoglobin 9.8 g/dL (12.0-15.5) Hematocrit 30.8 % (36.0-47.0) Mean Corpuscular Volume 77 fL (79-100) Mean Corpuscular Hemoglobin 24 pg (25-35) Mean Corpuscular Hemoglobin Concent 32 g/dL (31-37) Red Cell Distribution Width 16.2 % (11.5-14.5) Platelet Count 239 x10^3/uL (140-400) Neutrophils (%) (Auto) 59 % (31-73) Lymphocytes (%) (Auto) 29 % (24-48) Monocytes (%) (Auto) 9 % (0-9) Eosinophils (%) (Auto) 3 % (0-3) Basophils (%) (Auto) 0 % (0-3) Neutrophils # (Auto) 3.6 x10^3/uL (1.8-7.7) Lymphocytes # (Auto) 1.7 x10^3/uL (1.0-4.8) Monocytes # (Auto) 0.5 x10^3/uL (0.0-1.1) Eosinophils # (Auto) 0.1 x10^3/uL (0.0-0.7) Basophils # (Auto) 0.0 x10^3/uL (0.0-0.2) Prothrombin Time 13.3 SEC (11.7-14.0) Prothromb Time International Ratio 1.0 (0.8-1.1) Activated Partial Thromboplast Time 35 SEC (24-38) Sodium Level 144 mmol/L (136-145) Potassium Level 3.7 mmol/L (3.5-5.1) Chloride Level 108 mmol/L (98-107) Carbon Dioxide Level 29 mmol/L (21-32) Anion Gap 7 (6-14) Blood Urea Nitrogen 17 mg/dL (7-20) Creatinine 1.4 mg/dL (0.6-1.0) Estimated GFR (Cockcroft-Gault) 46.3 BUN/Creatinine Ratio 12 (6-20) Glucose Level 129 mg/dL (70-99) Calcium Level 8.6 mg/dL (8.5-10.1) Magnesium Level 1.9 mg/dL (1.8-2.4) Total Bilirubin 0.2 mg/dL (0.2-1.0) Aspartate Amino Transf (AST/SGOT) 14 U/L (15-37) Alanine Aminotransferase (ALT/SGPT) 10 U/L (14-59) Alkaline Phosphatase 86 U/L (46-116) Creatine Kinase 256 U/L (26-192) Creatine Kinase MB (Mass) 1.2 ng/mL (0.0-3.6) Creatine Kinase MB Relative Index 0.5 % (0-4) Troponin I Quantitative < 0.017 ng/mL (0.000-0.055) YT-Tyh-I-Type Natriuretic Peptide 694 pg/mL (0-124) Total Protein 6.4 g/dL (6.4-8.2) Albumin 2.3 g/dL (3.4-5.0) Albumin/Globulin Ratio 0.6 (1.0-1.7) Images Images CXR - There is again enlargement of the pericardial cardiac silhouette and prominence of the central pulmonary vasculature. VTE Prophylaxis Ordered VTE Prophylaxis Devices: No VTE Pharmacological Prophylaxi: Yes Assessment/Plan Assessment/Plan A/P: Chest pain - clearly high risk ACS, will trend troponins, telemetry, ASA, consult cardiology MIRIAM - likely vasomotor nephropathy, will hydrate gently given her CHF history Shortness of breath - may be having a mild asthma attack as well, will give nebulizer treatments Anemia - has slight anemia historically, will check iron studies. unclear etiology Asthma with COPD - nebs as above Hypertension - cont meds Dm2 - she is on a hefty insulin regimen. Will back off on her scheduled insulin a bit while in house, hold metformin for MIRIAM Neuropathy - on gabapentin Morbid obesity - counseled in depth on lifestyle modification. Given her super morbid obesity a referral to bariatric surgeon may be a consideration CAD s/p CARLOS x 6 - will cont meds FEN - ADA cardiac diet, npo after midnight PPX - lovenox FULL CODE Dispo - inpatient CVC for high risk ACS, MIRIAM DANY CORTES MD Jun 18, 2019 17:20
[2019-06-18 18:39] VITALS: BP 139/63
[2019-06-18 20:03] VITALS: BP 165/72
[2019-06-18] MEDS ORDERED: AMLO10TA8 PO (20:33)
[2019-06-18] MEDS ORDERED: METO25TA4 PO (20:33)
[2019-06-18] MEDS ORDERED: GABA600T7 PO (20:33)
[2019-06-18] MEDS ORDERED: ALPR1TAB6 PO (20:33)
[2019-06-18] MEDS ORDERED: FLUTI (20:33)
[2019-06-18] MEDS ORDERED: HYDR-2868 PO ×2 (20:33→21:03)
[2019-06-18] MEDS ORDERED: ZOLP5TAB5 PO (20:33)
[2019-06-18] MEDS ORDERED: FLUT16SP NS (20:33)
[2019-06-18] MEDS ORDERED: POTA20TA82 PO (20:33)
[2019-06-18] MEDS ORDERED: ASPI325T8 PO (20:44)
[2019-06-18] MEDS ORDERED: INSU100C4 SQ (20:44)
[2019-06-18] MEDS ORDERED: hydrOXYzine 25 MG TABLET PO PRN (21:00)
[2019-06-18] MEDS ORDERED: oxyCODONE/APAP 5/325 1 TAB TABLET PO PRN (21:00)
[2019-06-18] MEDS ORDERED: NON FORMULARY ITEM (Albuterol Sulfate (Albuterol Sulfate Neb Soln) 1 VIAL) NEB SCH (21:00)
[2019-06-18] MEDS ORDERED: NON FORMULARY ITEM (Albuterol Sulfate (Proair Respiclick) 2 PUFF) IH PRN (21:00)
[2019-06-18] MEDS ORDERED: ZOLPIDEM 5 MG TABLET. PO PRN (21:00)
[2019-06-18] MEDS ORDERED: ALPRAZolam 0.5 MG TABLET PO PRN (21:00)
[2019-06-18] MEDS ORDERED: INSULIN DETEMIR 60 UNIT SQ SCH (21:00)
[2019-06-18] MEDS ORDERED: CYCLOBENZAPRINE 10 MG TABLET. PO PRN (21:00)
[2019-06-18] MEDS ORDERED: DEXTROSE 50% 25 GM / 50ML DISP.SYRIN. IV PRN (21:15)
[2019-06-18] MEDS ORDERED: ATORVASTATIN CALCIUM 40 MG TABLET. PO SCH (21:15)
[2019-06-18] MEDS ORDERED: rOPINIRole 1 MG TABLET. PO SCH (21:15)
[2019-06-18] MEDS ORDERED: FUROSEMIDE 40 MG TABLET. PO SCH (21:15)
[2019-06-18] MEDS ORDERED: INSULIN GLARGINE SYRINGE. SQ SCH (21:30)
[2019-06-18] MEDS ORDERED: ALBUTEROL SULFATE 2.5 MG/3 ML NEBU. NEB PRN (21:45)
[2019-06-18] MEDS ORDERED: ENOXAPARIN 40 MG/0.4 ML SYRINGE. SQ SCH (22:00)
[2019-06-18] MEDS: GABAPENTIN 300 MG CAPSULE. PO SCH (22:05)
[2019-06-18] MEDS: METOPROLOL TART IMMED RELEASE 25 MG TABLET. PO SCH (22:05)
[2019-06-18] MEDS: OXYBUTYNIN CHLORIDE 5 MG TABLET PO SCH (22:05)
[2019-06-18] MEDS: hydrALAZINE 25 MG TABLET PO SCH (22:16)
[2019-06-18 22:46] VITALS: BP 162/69
[2019-06-18] MEDS: DICLOFENAC SODIUM 1% TOPICAL GEL 100GM TUBE. TP SCH (22:48)
[2019-06-19 03:18] VITALS: BP 105/53
[2019-06-19 07:00] VITALS: BP 116/59
[2019-06-19] MEDS ORDERED: PANTOPRAZOLE 40 MG TABLET.DR. PO SCH (07:30)
[2019-06-19] MEDS: ALBUTEROL SULFATE 2.5 MG/3 ML NEBU. NEB SCH ×2 (07:49→15:16)
[2019-06-19] MEDS ORDERED: metFORMIN 500 MG TABLET PO SCH (08:00)
[2019-06-19] MEDS: INSULIN LISPRO 300 UNITS/3 ML VIAL. SQ SCH ×2 (08:00→12:00)
[2019-06-19] MEDS ORDERED: CLOPIDOGREL BISULFATE 75 MG TABLET PO SCH (08:00)
[2019-06-19] MEDS ORDERED: INSULIN LISPRO 300 UNITS/3 ML VIAL. SQ SCH (08:00)
[2019-06-19] MEDS ORDERED: ASPIRIN 325 MG TABLET PO SCH (08:00)
[2019-06-19] MEDS: GABAPENTIN 300 MG CAPSULE. PO SCH ×2 (08:34→14:19)
[2019-06-19] MEDS: hydrALAZINE 25 MG TABLET PO SCH ×2 (08:36→14:20)
[2019-06-19] MEDS: OXYBUTYNIN CHLORIDE 5 MG TABLET PO SCH (08:36)
[2019-06-19] MEDS: METOPROLOL TART IMMED RELEASE 25 MG TABLET. PO SCH (08:37)
[2019-06-19] MEDS: POTASSIUM CHLORIDE 20 MEQ TABLET.ER. PO SCH (08:37)
[2019-06-19] MEDS: DICLOFENAC SODIUM 1% TOPICAL GEL 100GM TUBE. TP SCH (08:40)
--- NOTE | 2019-06-19 08:56 | CONS ---
DATE OF CONSULTATION: 06/19/2019 REASON FOR CONSULTATION: Chest pain. HISTORY OF PRESENT ILLNESS: The patient is a pleasant 59-year-old woman with past medical history as noted below, presents to the hospital in the setting of chest pain. She is mostly sedentary at baseline due to her morbid obesity and uses a wheelchair to get around. She reports that she has had epigastric chest pain approximately 10-15 minutes after eating. She has tried some antacids and this did not relieve her pain. She denies that this pain is similar to any previous cardiac events. No associated palpitations, orthopnea, or PND. She does report chronic bilateral lower extremity edema, likely related to her venous insufficiency and lymphedema. PAST MEDICAL HISTORY: 1. Coronary artery disease, status post PCI, most recently in 2018. 2. Hypertension. 3. Dyslipidemia. 4. Morbid obesity. 5. Type 2 diabetes. SOCIAL HISTORY: The patient lives by herself. Denies any alcohol, tobacco, or illicit drug use. FAMILY HISTORY: Noncontributory. ALLERGIES: No known drug allergies. CURRENT CARDIOVASCULAR MEDICATIONS: 1. Imdur 120 mg daily. 2. Amlodipine 10 mg daily. 3. Plavix 75 mg daily. 4. Aspirin 325 mg daily. 5. Atorvastatin 80 mg daily. 6. Metoprolol 25 mg p.o. b.i.d. 7. Hydralazine 25 mg p.o. t.i.d. REVIEW OF SYSTEMS: Negative unless otherwise mentioned above in HPI. PHYSICAL EXAMINATION: VITAL SIGNS: Afebrile, heart rate 51, respiratory rate 19, blood pressure 105/53, saturation 99% on room air. GENERAL: She is alert and oriented, in no acute distress. HEAD AND NECK: Grossly unremarkable. CARDIAC: Regular rate and rhythm without any obvious murmurs, rubs, or gallops. Distant heart sounds due to her obesity. LUNGS: Clear to auscultation anteriorly. ABDOMEN: Obese, protuberant, nontender. EXTREMITIES: 1+ edema of the lower extremities with dry skin. NEUROLOGIC: No focal deficits. MUSCULOSKELETAL: No trauma. DIAGNOSTIC STUDIES: Hemoglobin is 9.8, slightly decreased from her baseline of 10.7 at last visit. Cardiac enzymes are negative x 3 and her BNP is mildly elevated at 694. Creatinine is mildly elevated at 1.4. Chest x-ray is notable for mild central pulmonary vascular congestion. Echocardiogram in 04/2018 revealed normal LV systolic function with a pulmonary artery pressure of 45. EKG reveals sinus rhythm with a right bundle branch block and no acute ST or T-wave changes to suggest ischemia. Cardiac catheterization in 10/2017 revealed a patent LAD stent with a 90% stenosis. The patient underwent PCI at that time successfully with a 3.5 x 18 mm drug-eluting stent. IMPRESSION: 1. Noncardiac chest pain: Differential includes gastroesophageal reflux disease, peptic ulcer disease given relation to eating. This may also be a musculoskeletal component given her morbid obesity. 2. Coronary artery disease, stable. 3. Hypertension, currently stable. 4. Acute kidney injury, minimal likely due to some hypertension/diastolic heart failure. It appears that she was previously on losartan, but this was discontinued and she is currently on hydralazine and Imdur. RECOMMENDATIONS: From a purely cardiac perspective, can likely reinstate her losartan upon discharge and stop her hydralazine. It is unclear if she was previously taking Imdur as well at home, but we will continue home medications. No further cardiovascular testing necessary at this time. We will consider outpatient ischemic evaluation if she has any persistent symptoms. Thank you for this consultation. KYLE NEW MD DR: AB/estrella JOB#: [id number] / [id number]
[2019-06-19] MEDS ORDERED: FLUTICASONE 50MCG/NASAL SPRAY 16GM BOTTLE. NS SCH (09:00)
[2019-06-19] MEDS ORDERED: amLODIPine BESYLATE 10 MG TABLET PO SCH (09:00)
[2019-06-19] MEDS ORDERED: ISOSORBIDE MONONITRATE ER 30 MG TAB.ER.24H PO SCH (09:00)
[2019-06-19] MEDS ORDERED: LOSARTAN POTASSIUM 50 MG TABLET. PO SCH (09:00)
[2019-06-19 09:57] VITALS: BP 121/58
[2019-06-19 11:00] VITALS: BP 137/63
--- NOTE | 2019-06-19 12:28 | NUR ---
Patient complaining of feeling dizzy & lightheaded. Blood sugar 105, encouraged patient to eat lunch. BP 136/63, HR 55. Paging Dr. Kyle to talk to him about patient's HR & BP.
[2019-06-19 15:00] VITALS: BP 127/66
[2019-06-19] MEDS ORDERED: METO25TA4 PO (15:53)
--- NOTE | 2019-06-19 15:58 | PDOC3 ---
Discharge Summary Visit Information Date of Admission: Jun 19, 2019 Date of Discharge: Jun 19, 2019 Admitting Diagnosis: Chest pain, MIRIAM Final Diagnosis Problems Medical Problems: (1) Acute electrocardiogram changes Status: Acute (2) MIRIAM (acute kidney injury) Status: Acute (3) Chest pain Status: Acute Brief Hospital Course Allergies Allergies Coded Allergies Type Severity Reaction Last Updated Verified No Known Drug Allergies 04/08/15 No Vital Signs Vital Signs Date Time Temp Pulse Resp B/P (MAP) Pulse Ox O2 Delivery O2 Flow Rate FiO2 06/19/19 15:16 94 Room Air 06/19/19 14:20 54 118/81 06/19/19 11:00 97.7 20 97.7 06/19/19 07:00 30.0 Lab Results Laboratory Tests Test 06/18/19 15:56 06/18/19 19:00 06/18/19 20:55 06/19/19 00:01 White Blood Count 6.0 x10^3/uL (4.0-11.0) Red Blood Count 4.01 x10^6/uL (3.50-5.40) Hemoglobin 9.8 g/dL (12.0-15.5) Hematocrit 30.8 % (36.0-47.0) Mean Corpuscular Volume 77 fL (79-100) Mean Corpuscular Hemoglobin 24 pg (25-35) Mean Corpuscular Hemoglobin Concent 32 g/dL (31-37) Red Cell Distribution Width 16.2 % (11.5-14.5) Platelet Count 239 x10^3/uL (140-400) Neutrophils (%) (Auto) 59 % (31-73) Lymphocytes (%) (Auto) 29 % (24-48) Monocytes (%) (Auto) 9 % (0-9) Eosinophils (%) (Auto) 3 % (0-3) Basophils (%) (Auto) 0 % (0-3) Neutrophils # (Auto) 3.6 x10^3/uL (1.8-7.7) Lymphocytes # (Auto) 1.7 x10^3/uL (1.0-4.8) Monocytes # (Auto) 0.5 x10^3/uL (0.0-1.1) Eosinophils # (Auto) 0.1 x10^3/uL (0.0-0.7) Basophils # (Auto) 0.0 x10^3/uL (0.0-0.2) Prothrombin Time 13.3 SEC (11.7-14.0) Prothromb Time International Ratio 1.0 (0.8-1.1) Activated Partial Thromboplast Time 35 SEC (24-38) Sodium Level 144 mmol/L (136-145) Potassium Level 3.7 mmol/L (3.5-5.1) Chloride Level 108 mmol/L (98-107) Carbon Dioxide Level 29 mmol/L (21-32) Anion Gap 7 (6-14) Blood Urea Nitrogen 17 mg/dL (7-20) Creatinine 1.4 mg/dL (0.6-1.0) Estimated GFR (Cockcroft-Gault) 46.3 BUN/Creatinine Ratio 12 (6-20) Glucose Level 129 mg/dL (70-99) Calcium Level 8.6 mg/dL (8.5-10.1) Magnesium Level 1.9 mg/dL (1.8-2.4) Total Bilirubin 0.2 mg/dL (0.2-1.0) Aspartate Amino Transf (AST/SGOT) 14 U/L (15-37) Alanine Aminotransferase (ALT/SGPT) 10 U/L (14-59) Alkaline Phosphatase 86 U/L (46-116) Creatine Kinase 256 U/L (26-192) Creatine Kinase MB (Mass) 1.2 ng/mL (0.0-3.6) Creatine Kinase MB Relative Index 0.5 % (0-4) Troponin I Quantitative < 0.017 ng/mL (0.000-0.055) < 0.017 ng/mL (0.000-0.055) < 0.017 ng/mL (0.000-0.055) HP-Xkn-C-Type Natriuretic Peptide 694 pg/mL (0-124) Total Protein 6.4 g/dL (6.4-8.2) Albumin 2.3 g/dL (3.4-5.0) Albumin/Globulin Ratio 0.6 (1.0-1.7) Glucose (Fingerstick) 116 mg/dL (70-99) Test 06/19/19 07:34 06/19/19 12:01 Glucose (Fingerstick) 68 mg/dL (70-99) 105 mg/dL (70-99) Laboratory Tests Test 06/18/19 15:56 06/18/19 19:00 06/18/19 20:55 06/19/19 00:01 White Blood Count 6.0 x10^3/uL (4.0-11.0) Red Blood Count 4.01 x10^6/uL (3.50-5.40) Hemoglobin 9.8 g/dL (12.0-15.5) Hematocrit 30.8 % (36.0-47.0) Mean Corpuscular Volume 77 fL (79-100) Mean Corpuscular Hemoglobin 24 pg (25-35) Mean Corpuscular Hemoglobin Concent 32 g/dL (31-37) Red Cell Distribution Width 16.2 % (11.5-14.5) Platelet Count 239 x10^3/uL (140-400) Neutrophils (%) (Auto) 59 % (31-73) Lymphocytes (%) (Auto) 29 % (24-48) Monocytes (%) (Auto) 9 % (0-9) Eosinophils (%) (Auto) 3 % (0-3) Basophils (%) (Auto) 0 % (0-3) Neutrophils # (Auto) 3.6 x10^3/uL (1.8-7.7) Lymphocytes # (Auto) 1.7 x10^3/uL (1.0-4.8) Monocytes # (Auto) 0.5 x10^3/uL (0.0-1.1) Eosinophils # (Auto) 0.1 x10^3/uL (0.0-0.7) Basophils # (Auto) 0.0 x10^3/uL (0.0-0.2) Prothrombin Time 13.3 SEC (11.7-14.0) Prothromb Time International Ratio 1.0 (0.8-1.1) Activated Partial Thromboplast Time 35 SEC (24-38) Sodium Level 144 mmol/L (136-145) Potassium Level 3.7 mmol/L (3.5-5.1) Chloride Level 108 mmol/L (98-107) Carbon Dioxide Level 29 mmol/L (21-32) Anion Gap 7 (6-14) Blood Urea Nitrogen 17 mg/dL (7-20) Creatinine 1.4 mg/dL (0.6-1.0) Estimated GFR (Cockcroft-Gault) 46.3 BUN/Creatinine Ratio 12 (6-20) Glucose Level 129 mg/dL (70-99) Calcium Level 8.6 mg/dL (8.5-10.1) Magnesium Level 1.9 mg/dL (1.8-2.4) Total Bilirubin 0.2 mg/dL (0.2-1.0) Aspartate Amino Transf (AST/SGOT) 14 U/L (15-37) Alanine Aminotransferase (ALT/SGPT) 10 U/L (14-59) Alkaline Phosphatase 86 U/L (46-116) Creatine Kinase 256 U/L (26-192) Creatine Kinase MB (Mass) 1.2 ng/mL (0.0-3.6) Creatine Kinase MB Relative Index 0.5 % (0-4) Troponin I Quantitative < 0.017 ng/mL (0.000-0.055) < 0.017 ng/mL (0.000-0.055) < 0.017 ng/mL (0.000-0.055) RJ-Mvt-C-Type Natriuretic Peptide 694 pg/mL (0-124) Total Protein 6.4 g/dL (6.4-8.2) Albumin 2.3 g/dL (3.4-5.0) Albumin/Globulin Ratio 0.6 (1.0-1.7) Glucose (Fingerstick) 116 mg/dL (70-99) Test 06/19/19 07:34 06/19/19 12:01 Glucose (Fingerstick) 68 mg/dL (70-99) 105 mg/dL (70-99) Brief Hospital Course Ms Castro is a 59 year old female w/ PMHx Asthma, CHF, COPD, Hypertension, Dm2, neuropathy, morbid obesity, CAD s/p CARLOS x 6 who presents with chest pain. She rates her pain as 8 out of 10 in severity and sharp, is substernal, and radiates to her back and her right shoulder. She states she took 2 baby aspirin today. She notes associated shortness of breath for 2 weeks. The patient states she took nitroglycerin today before arrival and it relieved her chest pain but not her shortness of breath. In ED her EKG revealed new RBBB, though it does appear it was on her prior, just not noted, left axis deviation (new), and TWI in lateral leads as well as ST depression in I, III, V4, V5. She had negative troponin, but had Cr 1.4 and Hb 9.8 with MCV 77. CXR shows prominent pulmonary vasculature. Seen by cardiology, adjusted her BB to 12.5mg BID metoprolol. Holding losartan, imdur, hydralazine as her BP dropped. It is altogether possible she is over medicated currently as well as having a little hypoglycemia. Adjusted her insulin. She feels better. VS stable General: Alert, Oriented X3, Cooperative, No acute distress HEENT: Atraumatic, PERRLA, EOMI, Mucous membr. moist/pink Lungs: Clear to auscultation, Normal air movement Heart: S1S2, RRR, no thrills, no rubs, no gallops, no murmurs Abdomen: Normal bowel sounds, Soft, No tenderness, No hepatosplenomegaly, No masses Rectal Exam: not examined Extremities: No clubbing, No cyanosis, No edema, Normal pulses, No tenderness/swelling Skin: No rashes, No breakdown, No significant lesion Neuro: Normal gait, Normal speech, Strength at 5/5 X4 ext, Normal tone, Sensation intact, Cranial nerves 3-12 NL, Reflexes 2+ Psych/Mental Status: Mental status NL, Mood NL A/P: Chest pain - clearly high risk ACS, negative troponins, ok for d/c with cardiology f/u MRIIAM - likely vasomotor nephropathy, will hydrate gently given her CHF history Shortness of breath - may be having a mild asthma attack as well, will give nebulizer treatments Anemia - has slight anemia historically, will check iron studies. unclear etiology Asthma with COPD - nebs as above Hypertension - cont meds Dm2 - she is on a hefty insulin regimen. Will back off on her scheduled insulin a bit while in house, hold metformin Neuropathy - on gabapentin Morbid obesity - counseled in depth on lifestyle modification. Given her super morbid obesity a referral to bariatric surgeon may be a consideration CAD s/p CARLOS x 6 - will cont meds DIONNE - CPAP overnight Greater than 30 minutes spent on d/c Discharge Information Condition at Discharge: Improved Follow Up: Weeks (1) Disposition/Orders: D/C to Home Scheduled Albuterol Sulfate (Albuterol Sulfate Neb Soln) 0.63 Mg/3 Ml Vial.neb, 1 VIAL NEB TID, #150 Ref 1 (Reported) Entered as Reported by: NATHALY PETERS on 10/02/15 033 Last Action: Converted on 06/18/192105 by Enrique Bell Alprazolam (Alprazolam) 1 Mg Tablet, 0.5 MG PO PRN BID for anxiety, #60 (Reported) Entered as Reported by: Enrique Bell on 06/18/192032 Last Action: Continued on 06/18/192105 by Enrique Bell Amlodipine Besylate (Amlodipine Besylate) 10 Mg Tablet, 10 MG PO DAILY for blood pressure, (Reported) Entered as Reported by: Enrique Bell on 06/18/192032 Last Action: Continued on 06/18/192105 by Enrique Bell Aspirin (Aspirin) 325 Mg Tablet, 325 MG PO DAILY for blood thinner, (Reported) Entered as Reported by: Enrique Bell on 06/18/192043 Last Action: Continued on 06/18/192105 by Enrique Bell Clopidogrel Bisulfate (Clopidogrel) 75 Mg Tablet, 75 MG PO DAILYWBKFT for 75 Days, #30 Ref 5 Prescribed by: ERICA ADEN on 11/10/17 1342 Last Action: Continued on 06/18/192105 by Enrique Bell Diclofenac Sodium (Voltaren) 100 Gm Gel..gram., 1 GM TP BID, #100 Ref 2 (Reported) Entered as Reported by: NATHALY PETERS on 10/02/15 0350 Last Action: Continued on 06/18/192105 by Enrique Bell Fluticasone Propionate (Fluticasone Propionate Nasal [place]) 16 Gm [place].susp, 2 SPRAY NS DAILY for copd, #1 Ref 11 (Reported) Entered as Reported by: Enrique Bell on 06/18/192032 Last Action: Continued on 06/18/192105 by Enrique Bell Furosemide (Furosemide) 40 Mg Tablet, 1 TAB PO BID, #30 Ref 5 (Reported) LAST DOSE: 10/01/15 AM NEXT DOSE: 10/03/15 AM Entered as Reported by: KAY KOROMA on 04/04/142148 Last Action: Continued on 06/18/192105 by Enrique Bell Gabapentin (Gabapentin) 600 Mg Tablet, 600 MG PO TID for NEUROGENIC PAIN, (Reported) Entered as Reported by: Enrique Bell on 06/18/192032 Last Action: Converted on 06/18/192105 by Enrique Bell Insulin Aspart (Novolog) 100 Unit/1 Ml Cartridge, 60 UNIT SQ TIDWMEALS for blood sugar, (Reported) Entered as Reported by: Enrique Bell on 06/18/192043 Last Action: Converted on 06/18/192105 by Enrique Bell Insulin Detemir (Levemir) 100 Unit/1 Ml Vial, 60 UNIT SQ HS for blood sugar, (Reported) Entered as Reported by: GENE HARTMAN on 05/15/16421 Last Action: Converted on 06/18/192105 by Enrique Bell Losartan Potassium (Losartan Potassium) 100 Mg Tablet, 100 MG PO DAILY, (Reported) Entered as Reported by: VIGNESH MONDRAGON on 11/09/17 0718 Last Action: Converted on 06/18/192105 by Enrique Bell Metformin Hcl (Metformin Hcl) 500 Mg Tablet, 500 MG PO BIDWMEALS for ANTI-KUNAL BETIC, Ref 0 (Reported) Entered as Reported by: SHAWN AMBROSE on 11/09/17 1046 Last Action: Continued on 06/18/192105 by Enrique Bell Metoprolol Tartrate (Metoprolol Tartrate) 25 Mg Tablet, 0.5 TAB PO BID for blood pressure for 30 Days, #30 Ref 1 Prescribed by: DANY CORTES MD on 06/19/19 1553 Oxybutynin Chloride (Oxybutynin Chloride) 5 Mg Tablet, 1 TAB PO BID, #60 Ref 11 (Reported) LAST DOSE: 10/02/15 AM NEXT DOSE: 10/03/15 AM Entered as Reported by: NATHALY PETERS on 10/02/15349 Last Action: Continued on 06/18/192105 by Enrique Bell Pantoprazole Sodium (Protonix ) 40 Mg Tablet.dr, 1 TAB PO DAILY, #30 Ref 5 (Reported) Entered as Reported by: DUANE FUENTES on 09/08/161951 Last Action: Continued on 06/18/192105 by Enrique Bell Potassium Chloride (Potassium Chloride) 20 Meq Tablet.er, 20 MEQ PO BID for chf, (Reported) Entered as Reported by: Enrique Bell on 06/18/192032 Last Action: Converted on 06/18/192105 by Enrique Bell Ropinirole Hcl (Requip) 1 Mg Tablet, 1 TAB PO QHS, #30 Ref 2 (Reported) Entered as Reported by: DUANE FUENTES on 09/08/161951 Last Action: Continued on 06/18/192105 by Enrique Bell Rosuvastatin Calcium (Crestor) 20 Mg Tablet, 20 MG PO HS for FOR CHOLESTEROL, #30 Ref 0 (Reported) LAST DOSE: 10/01/15 BEDTIME NEXT DOSE: 10/02/15 BEDTIME Entered as Reported by: NATHALY PETERS on 10/02/15349 Last Action: Converted on 06/18/192105 by Enrique Bell Scheduled PRN Albuterol Sulfate (Proair Respiclick) 90 Mcg Aer.pow.ba, 2 PUFF IH PRN Q4-6HRS PRN for SHORTNESS OF BREATH, (Reported) Entered as Reported by: DUANE FUENTES on 09/08/162002 Last Action: Converted on 06/18/192105 by Enrique Bell Cyclobenzaprine Hcl (Cyclobenzaprine Hcl) 10 Mg Tablet, 1 TAB PO TID PRN for MUSCLE SPASMS, #90 (Reported) Entered as Reported by: DUANE FUENTES on 09/08/162002 Last Action: Continued on 06/18/192105 by Enrique Bell Hydroxyzine Hcl (Hydroxyzine Hcl) 50 Mg Tablet, 50 MG PO TID PRN PRN for ITCHING, (Reported) Entered as Reported by: SHAWN AMBROSE on 11/09/17 104 Last Action: Converted on 06/18/192105 by Enrique Bell Oxycodone/Apap 5-325 (Percocet 5-325 Mg Tablet ) 1 Each Tablet, 1 TAB PO PRN Q8HRS PRN for PAIN, Ref 0 (Reported) Entered as Reported by: SHAWN FEVURLY on 11/09/17 104 Last Action: Continued on 06/18/192105 by Enrique Bell Zolpidem Tartrate (Zolpidem Tartrate) 5 Mg Tablet, 5 MG PO PRN QHS PRN for INSOMNIA, Ref 0 (Reported) Entered as Reported by: Enrique Bell on 06/18/192032 Last Action: Continued on 06/18/192105 by Enrique Bell Miscellaneous Medications [fluti] , (Reported) Entered as Reported by: Enrique Bell on 06/18/192032 Last Action: New Order on 06/18/192032 by Enrique Bell Discontinued Medications Amlodipine Besylate/Benazepril (Amlodipine-Benazepril 10-40 Mg) 1 Each Capsule, 1 CAP PO DAILY, #30 Ref 5 (Reported) Entered as Reported by: SHAWN AMBROSE on 11/09/17 1046 Last Action: Discontinued on 06/18/192032 by Enrique Bell Aspirin (Aspirin) 325 Mg Tablet, 1 TAB PO DAILY, #30 Ref 5 (Reported) Entered as Reported by: DUANE FUENTES on 09/08/162002 Last Action: Discontinued on 06/18/192053 by Enrique Bell Ferrous Sulfate (Ferrous Sulfate) 325 Mg Tablet, 1 TAB PO DAILY, #30 Ref 3 (Reported) LAST DOSE: 10/02/15 AM NEXT DOSE: 10/03/15 AM Entered as Reported by: NATHALY PETERS on 10/02/15 0350 Last Action: Discontinued on 06/18/192049 by Enrique Bell Hydralazine Hcl (Hydralazine Hcl) 25 Mg Tablet, 1 TAB PO DAILY for blood pressure, #60 Ref 5 (Reported) Entered as Reported by: Enrique Bell on 06/18/192032 Last Action: Discontinued on 06/18/192053 by Enrique Bell Hydralazine Hcl (Hydralazine Hcl) 25 Mg Tablet, 1 TAB PO TID for blood pressure, #90 Ref 5 (Reported) Entered as Reported by: Enrique Bell on 06/18/192102 Last Action: Continued on 06/18/192105 by Enrique Bell Insulin Aspart (Novolog Flexpen) 100 Unit/1 Ml Insuln.pen, 60 UNIT SQ TIDAC, (Reported) Entered as Reported by: SHAWN AMBROSE on 11/09/17 1046 Last Action: Discontinued on 06/18/192032 by Enrique Bell Isosorbide Mononitrate (Isosorbide Mononitrate Er) 60 Mg Tab.er.24h, 2 TAB PO DAILY, #30 Ref 5 (Reported) LAST DOSE: 10/02/15 AM NEXT DOSE: 10/03/15 AM Entered as Reported by: NATHALY PETERS on 10/02/15 0350 Last Action: Converted on 06/18/192105 by Enrique Bell Lansoprazole (Lansoprazole) 30 Mg Capsule.dr, 1 CAP PO DAILY, #30 Ref 5 (Reported) Entered as Reported by: FRANCESCA DICK on 05/16/171825 Last Action: Discontinued on 06/18/192032 by Enrique Bell Nitroglycerin (Nitrostat) 0.4 Mg Tab.subl, 1 TAB SL UD, #100 Ref 3 (Reported) Entered as Reported by: KAY KOROMA on 04/04/142148 Last Action: Discontinued on 06/18/192032 by Enrique Bell Potassium Chloride (Potassium Chloride) 10 Meq Tab.sr.24h, 20 MEQ PO BID, (Reported) Entered as Reported by: SHAWN AMBROSE on 11/09/171045 Last Action: Discontinued on 06/18/192032 by DANY Kirkpatrick MD Jun 19, 2019 15:58
--- NOTE | 2019-06-19 17:05 | NUR ---
Discharge Note: MARIKA SMITH [address] [place] [address] Discharge instructions and discharge home medications reviewed with Patient and a copy given. All questions have been answered and understanding verbalized. The following instructions and handouts were given: discharge instructions, MIRIAM info, CP info. Discontinued lines and drains: Peripheral IV intact. Patient discharged to Home or Self Care with Family Member via Wheelchair at 1705.
--- NOTE | 2019-06-20 06:56 | EKG ---
[facility] [address] [place] [address] Test Date: 2019-06-18 Test Time: 15:43:35 Pat Name: MARIKA SMITH Department: Room: 209 1 Gender: F Database Management Specialist: : [id number] Requested By: CHRISTINA CARRANZA Order Number: [id number] Reading MD: Chuy Kyle MD Measurements Intervals Roland Rate: 65 P: 0 HI: 164 QRS: -31 QRSD: 126 T: 134 QT: 518 QTc: 545 Interpretive Statements SINUS RHYTHM ABNORMAL LEFT AXIS DEVIATION RIGHT BUNDLE BRANCH BLOCK ABNORMAL ECG Electronically Signed On 06-21-2019 10:59:03 ELEVATOR REPAIRER by Chuy Kyle MD
== END 2019-06-19 17:05 | disposition home or self-care (01) | DRG 683 ==
LOC: ER 15:33 → 2 NORTH 16:55
PROVIDERS: ADMIT Internal Medicine; ATTEND Internal Medicine
PROC: 5A09357 Assistance with Respiratory Ventilation, Less than 24 Consecutive Hours, Continuous Positive Airway Pressure (ICD-10-PCS; principal; 2019-06-18)
DX: N17.0 Acute kidney failure with tubular necrosis (principal); I13.0 Hypertensive heart and chronic kidney disease with heart failure and stage 1 through stage 4 chronic kidney disease, or unspecified chronic kidney disease; R07.89 Other chest pain; E11.22 Type 2 diabetes mellitus with diabetic chronic kidney disease; E11.40 Type 2 diabetes mellitus with diabetic neuropathy, unspecified; E66.01 Morbid (severe) obesity due to excess calories; E78.5 Hyperlipidemia, unspecified; G47.33 Obstructive sleep apnea (adult) (pediatric); I25.10 Atherosclerotic heart disease of native coronary artery without angina pectoris; I25.2 Old myocardial infarction; I50.9 Heart failure, unspecified; J44.9 Chronic obstructive pulmonary disease, unspecified; N18.9 Chronic kidney disease, unspecified; Z82.49 Family history of ischemic heart disease and other diseases of the circulatory system; Z82.5 Family history of asthma and other chronic lower respiratory diseases; Z83.3 Family history of diabetes mellitus; Z95.5 Presence of coronary angioplasty implant and graft; F32.9 Major depressive disorder, single episode, unspecified; F41.9 Anxiety disorder, unspecified; K21.9 Gastro-esophageal reflux disease without esophagitis; M19.90 Unspecified osteoarthritis, unspecified site
CPT/HCPCS: 36415; 71045; 80053; 82553; 82962; 83735; 83880; 84484; 85025; 85610; 85730; 93005; 94640; 94660; 94760; J1650; J1815; J2270; J2405; J7613; G0378

== ENCOUNTER → 2020-01-11 | Outpatient (CLI) | payer OTHER ==
[~2020-01-11] MED LIST changes: +ALPR1TAB6 PO; -DICL100G18 TP; +DICL100G54 TP; +FLUT16SP NS; +FLUTI; +INSU100C4 SQ; +METF-658 PO; -METF500T11 PO; +POTA20TA4 PO; -POTA20TA82 PO; +PREG-9 PO; -PREG75CA PO; -ROPI1TAB2 PO; +ROPI1TAB4 PO; +ZOLP5TAB5 PO
--- NOTE | 2020-01-11 12:25 | CARD ---
MR#: [id number] Date of Study: 01/11/2020 Ordering Physician: ERICA ADEN, Referring Physician: ERICA ADEN Tech: Anna Enrique RDCS APPROVED REPORT EXAM: Two-dimensional and M-mode echocardiogram with Doppler and color Doppler. Other Information Quality : Good INDICATION Cardiac Disease: CAD Morbid Obesity 2D DIMENSIONS RVDd3.5 (2.9-3.5cm)Left Atrium(2D)4.3 (1.6-4.0cm) IVSd1.4 (0.7-1.1cm)Aortic Root(2D)2.9 (2.0-3.7cm) LVDd5.3 (3.9-5.9cm)LVOT Diameter2.4 (1.8-2.4cm) PWd1.4 (0.7-1.1cm)LVDs4.3 (2.5-4.0cm) FS (%) 18.5 %SV51.9 ml LVEF(%)40.0 (>50%) Aortic Valve AoV Peak Mars.196.6cm/sAoV VTI38.8cm AO Peak GR.15.5mmHgLVOT Peak Mars.140.7cm/s AO Mean GR.9mmHgAVA (VMAX)3.19cm2 UZIEL (VTI)3.40cm2 Mitral Valve MV E Yqgpwojc025.0cm/sMV DECEL [id number] MV A Zlwtylzm08.2cm/sE/A Ratio1.8 Tricuspid Valve TR P. Jihepibq837tg/sRAP TRYVMMXM14uqBt TR Peak Gr.45ggDcXGED47dsXc Pulmonary Vein S1 Iittcxbh89.2cm/sD2 Tkdstczh65.3cm/s LEFT VENTRICLE The left ventricle is normal size. There is mild to moderate concentric left ventricular hypertrophy. Left ventricle systolic function is mildly impaired. The Ejection Fraction is 40-45%. Transmitral Do ppler flow pattern is Grade II-pseudonormal filling dynamics. RIGHT VENTRICLE The right ventricle is normal size. The right ventricular systolic function is normal. ATRIA The left atrium is mildly dilated. The right atrium size is normal. The interatrial septum is intact with no evidence for an atrial septal defect or patent foramen ovale as noted on 2-D or Doppler imagi ng. AORTIC VALVE The aortic valve is calcified but opens well. Doppler and Color Flow revealed no significant aortic r egurgitation. There is no significant aortic valvular stenosis. MITRAL VALVE The mitral valve is calcified but opens well. Mitral annular calcification is mild. There is no evide nce of mitral valve prolapse. There is no mitral valve stenosis. Doppler and Color-flow revealed trac e to mild mitral regurgitation. TRICUSPID VALVE The tricuspid valve is normal in structure and function. Doppler and Color Flow revealed trace tricus pid regurgitation. There is moderate-severe pulmonary hypertension. The PA pressure was estimated at 62 mmHg. There is no tricuspid valve stenosis. PULMONIC VALVE The pulmonic valve is not well visualized. Doppler and Color Flow revealed mild pulmonic valvular reg urgitation. There is no pulmonic valvular stenosis. GREAT VESSELS The aortic root is normal in size. The ascending aorta is not well seen. The IVC is dilated and colla pses <50% with inspiration. PERICARDIAL EFFUSION There is no evidence of significant pericardial effusion. Critical Notification Critical Value: No <Conclusion> Left ventricle systolic function is mildly impaired. The Ejection Fraction is 40-45%. Trace to mild mitral regurgitation. Trace tricuspid regurgitation. The PA pressure was estimated at 62 mmHg. There is no evidence of significant pericardial effusion. Signed by : Erica Aden, Electronically Approved : 01/11/2020 12:25:08
== END ==
LOC: ECHO 09:00
PROVIDERS: ATTEND Internal Medicine Cardiovascular Disease
DX: I08.8 Other rheumatic multiple valve diseases (principal); I27.20 Pulmonary hypertension, unspecified; I25.10 Atherosclerotic heart disease of native coronary artery without angina pectoris
CPT/HCPCS: 93306

== ENCOUNTER → 2020-03-08 | Outpatient (CLI) | payer OTHER ==
[~2020-03-08] MED LIST changes: -OXYC-411 PO; +OXYC1TAB20 PO
--- NOTE | 2020-03-08 09:05 | RAD ---
EXAM: Pelvic ultrasound HISTORY: Postmenopausal bleeding. COMPARISON: None. FINDINGS: Sonographic evaluation of the pelvis was performed transabdominally. Visualization was significantly limited by habitus. The uterus is anteverted and measures 7.3 x 5.4 x 3.7 cm. The endometrial stripe is not well visualized. It is not grossly thickened on limited images. No masses are identified. There is no significant free fluid. Neither ovary could be visualized. IMPRESSION: 1. The endometrial stripe is not well-defined given limited visualization. Recommend ongoing follow-up for postmenopausal bleeding. 2. Neither ovary could be visualized. Electronically signed by: Erin Gomez MD (03/08/2020 9:02 AM) [id number]
--- NOTE | 2020-03-08 10:34 | RAD ---
EXAM: 1. BILATERAL DIGITAL DIAGNOSTIC MAMMOGRAPHY. 2. BILATERAL BREAST ULTRASOUND. HISTORY: Follow-up bilateral breast masses. TECHNIQUE: Bilateral full field digital images were obtained in CC and MLO projections. Computer-aided detection was applied. Sonography of both breasts was also performed. COMPARISON: 03/24/2019, 04/18/2019. COMPOSITION: B. There are scattered areas of fibroglandular density. FINDINGS: A circumscribed nodule medially on the right cc view is not clearly changed since the prior study. On today's sonography, this corresponds with a 9 x 5 x 5 mm oval hypoechoic nodule which may represent a lymph node or benign fibroadenoma 1:00 position 16 cm from the nipple. It measures 1 mm larger than on the prior examination, but this may be from different slice selection. A prominent lymph node is again noted superolaterally on the left. Sonographically this measures 2.1 x 1.0 cm and appears stable. Elsewhere, scattered and vascular calcifications are benign. Bilateral axillary lymph nodes appear stable. There are no clearly suspicious masses, microcalcifications or architectural distortion. The parenchymal pattern is stable. BI-RADS CATEGORY 3: Probably Benign. RECOMMENDATION: 1. Six-month follow-up right breast ultrasound to confirm stability of a probably benign hypoechoic mass at the right 1:00 position 16 cm from the nipple. Electronically signed by: Erin Gomez MD (03/08/2020 10:31 AM) [id number]
== END | disposition home or self-care (01) ==
LOC: US 08:02
PROVIDERS: ATTEND Family Medicine
DX: R92.1 Mammographic calcification found on diagnostic imaging of breast (principal); N95.0 Postmenopausal bleeding
CPT/HCPCS: 76856; 77066; 76641-50

== ENCOUNTER 2020-04-01 17:23 | Observation (INO) | payer OTHER ==
[~2020-04-01] VITALS: Ht 165.1 cm; Wt 177.3 kg
[2020-04-01 17:47] LABS: BASO % 0 % (0-3); EOS # 0.2 x10^3/uL (0.0-0.7); EOS % 3 % (0-3); HEMATOCRIT 34.2 % (36.0-47.0); HEMOGLOBIN 10.5 g/dL (12.0-15.5); LYMPH # 1.8 x10^3/uL (1.0-4.8); LYMPH % 30 % (24-48); MEAN CORPUSCULAR HEMOGLOBIN 24 pg (25-35); MEAN CORPUSCULAR HGB CONC 31 g/dL (31-37); MEAN CORPUSCULAR VOLUME 77 fL (79-100); MONO # 0.6 x10^3/uL (0.0-1.1); MONO % 11 % (0-9); NEUT # 3.4 x10^3/uL (1.8-7.7); NEUT % 57 % (31-73); PLATELET COUNT 264 x10^3/uL (140-400); RED BLOOD COUNT 4.45 x10^6/uL (3.50-5.40); RED CELL DISTRIBUTION WIDTH 15.8 % (11.5-14.5)
[2020-04-01 18:05] LABS: CALCIUM 8.9 mg/dL (8.5-10.1); CREATININE 1.6 mg/dL (0.6-1.0); GFR 39.7; POTASSIUM 3.6 mmol/L (3.5-5.1)
--- NOTE | 2020-04-01 18:38 | PHYS DOC ---
Past Medical History Past Medical History: Asthma, CHF, COPD, Hypertension, [place] Additional Past Medical Histor: neuropathy, morbid obesity Past Surgical History: Other Additional Past Surgical Histo: STENTS X 6 Smoking Status: Former Smoker Alcohol Use: Occasionally Drug Use: None General Adult EDM: Chief Complaint: CHEST PAIN HPI: HPI: Patient is a 59 year old female who presents to the Emergency Room complaining of intermittent substernal/left sided chest pressure x 3 weeks. Patient states it got worse tonight and felt like her last heart attack. She has some shortness of breath when the pain comes on. Denies any recent illnesses. Denies URI symp toms, N/V, abdominal pain, cough. Review of Systems: Review of Systems: General: Denies fever, chills, sweats, fatigue Eyes: Denies drainage, blurred vision, eye redness HENT: Denies rhinorrhea, sore throat, earache Respiratory: Denies cough, shortness of breath, wheezing Cardiac: Denies edema, palpitations. Reports chest pain GI: Denies abdominal pain, Nausea, vomiting MSK: Denies back pain, neck pain Skin: Denies rash, jaundice Neuro: Denies headache, dizziness Psychiatric: Denies SI/HI Heart Score: HEART Score for Chest Pain: HEART Score for Chest Pain Response (Comments) Value History Highly Suspicious 2 ECG Nonspecific Repolarizatio 1 Age >45 - < 65 1 Risk Factors >3 Risk Factors or Hx CAD 2 Troponin < Normal Limit 0 Total 6 Risk Factors: Risk Factors: DM, Current or recent (<one month) smoker, HTN, HLP, family history of CAD, obesity. Risk Scores: Score 0 - 3: 2.5% MACE over next 6 weeks - Discharge Home Score 4 - 6: 20.3% MACE over next 6 weeks - Admit for Clinical Observation Score 7 - 10: 72.7% MACE over next 6 weeks - Early Invasive Strategies Allergies: Allergies: Allergies Coded Allergies Type Severity Reaction Last Updated Verified No Known Drug Allergies 04/08/15 No Physical Exam: PE: General: Awake, alert, NAD. Well Nourished, well hydrated. Cooperative. Morbid obesity HEENT: Atraumatic, EOMI, PERRL, airway patent, moist oral mucosa Neck: Supple, trachea midline Respiratory: CTA bilaterally, normal effort, no wheezing/crackles CV: RRR, no murmur, cap refill <2 GI: Soft, nondistended, nontender, no masses MSK: No obvious deformities Skin: Warm, dry, intact Neuro: A&O x3, speech NL, sensory and motor grossly intact, no focal deficits Psych: Normal affect, normal mood, not suicidal or homicidal Current Patient Data: Labs: Laboratory Tests Test 04/01/20 17:38 White Blood Count 6.0 x10^3/uL (4.0-11.0) Red Blood Count 4.45 x10^6/uL (3.50-5.40) Hemoglobin 10.5 g/dL (12.0-15.5) L Hematocrit 34.2 % (36.0-47.0) L Mean Corpuscular Volume 77 fL (79-100) L Mean Corpuscular Hemoglobin 24 pg (25-35) L Mean Corpuscular Hemoglobin Concent 31 g/dL (31-37) Red Cell Distribution Width 15.8 % (11.5-14.5) H Platelet Count 264 x10^3/uL (140-400) Neutrophils (%) (Auto) 57 % (31-73) Lymphocytes (%) (Auto) 30 % (24-48) Monocytes (%) (Auto) 11 % (0-9) H Eosinophils (%) (Auto) 3 % (0-3) Basophils (%) (Auto) 0 % (0-3) Neutrophils # (Auto) 3.4 x10^3/uL (1.8-7.7) Lymphocytes # (Auto) 1.8 x10^3/uL (1.0-4.8) Monocytes # (Auto) 0.6 x10^3/uL (0.0-1.1) Eosinophils # (Auto) 0.2 x10^3/uL (0.0-0.7) Basophils # (Auto) 0.0 x10^3/uL (0.0-0.2) Sodium Level 142 mmol/L (136-145) Potassium Level 3.6 mmol/L (3.5-5.1) Chloride Level 107 mmol/L (98-107) Carbon Dioxide Level 27 mmol/L (21-32) Anion Gap 8 (6-14) Blood Urea Nitrogen 18 mg/dL (7-20) Creatinine 1.6 mg/dL (0.6-1.0) H Estimated GFR (Cockcroft-Gault) 39.7 Glucose Level 122 mg/dL (70-99) H Calcium Level 8.9 mg/dL (8.5-10.1) Troponin I Quantitative < 0.017 ng/mL (0.000-0.055) Laboratory Tests 04/01/20 17:38 Laboratory Tests 04/01/20 17:38 Vital Signs: Vital Signs Date Time Temp Pulse Resp B/P (MAP) Pulse Ox O2 Delivery O2 Flow Rate FiO2 04/01/20 17:46 97.8 53 28 143/64 (90) 94 Room Air 97.8 EKG: EKG: [] Radiology/Procedures: Radiology/Procedures: [] Course & Med Decision Making: Course & Med Decision Making Pertinent Labs and Imaging studies reviewed. (See chart for details) Patient is a 59 year-old female who presents to the Emergency Room complaining o f chest pain. History is significant for coronary artery disease, morbid obesity. At this time, given patient's risk factors and story there is concern for possible cardiac pathology. EKG was ordered and shows chronic changes. At this time there is no signs of STEMI, pericarditis, or unstable arrthymia on EKG. Patient has received aspirin today. CBC, BMP, troponin, CXR were ordered to evaluate for causes of chest pain including ACS, anemia, electrolyte abnormalities that can lead to arrhythmias, PTX, pneumonia, pneumomediastinum. Patient does not have any abdominal tenderness that would suggest pancreaititis or cholecystitis and does not need an abdominal work up at this time. Patient will be admitted for cardiac evaluation Dragon Disclaimer: Val Disclaimer: This electronic medical record was generated, in whole or in part, using a voice recognition dictation system. Departure Departure Impression: Primary Impression: Chest pain Disposition: ADMITTED INPATIENT Condition: STABLE Referrals: ALBA GUERRA MD (PCP) Justicifation of Admission Dx: Justifications for Admission: Justification of Admission Dx: Yes ANJELICA STEINER MD Apr 01, 2020 18:38
--- NOTE | 2020-04-01 18:55 | PDOC1 ---
History and Physical Date of Service: DOS: DATE: 04/01/20 TIME: 18:54 Chief Complaint: Chief Complain: chest pain History of Present Illness: HPI: 59 yo F with multiple morbidities who presents to the ED with sharp substernal chest pain 10/10 that radiated to the epigastrium. There are no alleviating or exacerbating factors. This pain lasted for several hours. Denies N/V, SOB, palpitations, ABD pain, diarrhea, constipation, or dysurai Past Medical/Surgical History: PMH/PSH: Past Medical History: Asthma, CHF, COPD, Hypertension, [place], neuropathy, morbid obesity Past Surgical History: STENTS X 6 Allergies: Allergies: Coded Allergies: No Known Drug Allergies (Unverified , 04/08/15) Family History: Family History: Reviewed and none reported. Social History: Social History: Smoking Status: Former Smoker Alcohol Use: Occasionally Drug Use: None Current Medications: Current Medications Current Medications Morphine Sulfate (Morphine Sulfate) 5 mg 1X ONCE IV ; Start 04/01/20 at 19:00; Stop 04/01/20 at 19:01; Status UNV Aspirin (Aspirin Chewable) 324 mg 1X ONCE PO ; Start 04/01/20 at 19:00; Stop 04/01/20 at 19:01; Status UNV Active Scripts Active Metoprolol Tartrate 25 Mg Tablet 0.5 Tab PO BID 30 Days Clopidogrel (Clopidogrel Bisulfate) 75 Mg Tablet 75 Mg PO DAILYWBKFT 75 Days Reported Novolog (Insulin Aspart) 100 Unit/1 Ml Cartridge 70 Unit SQ TIDWMEALS Aspirin 325 Mg Tablet 325 Mg PO DAILY Fluticasone Propionate Nasal [place] (Fluticasone Propionate) 16 Gm [place].susp 2 [place] NS DAILY [fluti] Alprazolam 1 Mg Tablet 0.5 Mg PO PRN BID Zolpidem Tartrate 5 Mg Tablet 5 Mg PO PRN QHS PRN Amlodipine Besylate 10 Mg Tablet 10 Mg PO DAILY Gabapentin 600 Mg Tablet 600 Mg PO TID Potassium Chloride (Potassium Chloride) 20 Meq Tablet.er 20 Meq PO BID Percocet 5-325 Mg Tablet (Oxycodone/Acetaminophen) 1 Each Tablet 1 Tab PO PRN Q8HRS PRN Hydroxyzine Hcl 50 Mg Tablet 50 Mg PO TID PRN PRN Metformin Hcl 500 Mg Tablet 500 Mg PO BIDWMEALS Losartan Potassium 100 Mg Tablet 100 Mg PO DAILY Proair Respiclick (Albuterol Sulfate) 90 Mcg Aer.pow.ba 2 Puff IH PRN Q4-6HRS PRN Cyclobenzaprine Hcl 10 Mg Tablet 1 Tab PO TID PRN Protonix (Pantoprazole Sodium) 40 Mg Tablet.dr 1 Tab PO DAILY Requip (Ropinirole Hcl) 1 Mg Tablet 1 Tab PO QHS Levemir (Insulin Detemir) 100 Unit/1 Ml Vial 60 Unit SQ HS Crestor (Rosuvastatin Calcium) 20 Mg Tablet 20 Mg PO HS LAST DOSE: 10/01/15 BEDTIME NEXT DOSE: 10/02/15 BEDTIME Oxybutynin Chloride 5 Mg Tablet 1 Tab PO BID LAST DOSE: 10/02/15 AM NEXT DOSE: 10/03/15 AM Voltaren (Diclofenac Sodium) 100 Gm Gel..gram. 1 Gm TP PRN BID PRN Albuterol Sulfate Neb Soln (Albuterol Sulfate) 0.63 Mg/3 Ml Vial.neb 1 Vial NEB TID Furosemide 40 Mg Tablet 1 Tab PO BID LAST DOSE: 10/01/15 AM NEXT DOSE: 10/03/15 AM ROS: Review of Systems Review of System REVIEW OF SYSTEMS: GENERAL: Denies weakness SKIN: No bruising, hair changes or rashes. EYES: No blurred, double or loss of vision. NOSE AND THROAT: No history of nosebleeds, hoarseness or sore throat. HEART: No history of palpitations, chest pain or shortness of breath on exertion. LUNGS: Denies cough, hemoptysis, wheezing or shortness of breath. GASTROINTESTINAL: Denies changes in appetite, nausea, vomiting, diarrhea or constipation. GENITOURINARY: No history of frequency, urgency, hesitancy or nocturia. NEUROLOGIC: Denies history of numbness, tingling, or tremor. PSYCHIATRIC: No history of panic, anxiety or depression. ENDOCRINE: No history of heat or cold intolerance, polyuria or polydipsia. EXTREMITIES: Denies joint pain, pain on walking or stiffness. Physical Exam: Vital Signs: Vital Signs Date Time Temp Pulse Resp B/P (MAP) Pulse Ox O2 Delivery O2 Flow Rate FiO2 04/01/20 17:46 97.8 53 28 143/64 (90) 94 Room Air 97.8 Physcial Exam: GEN: No apparent distress. Alert and oriented HEENT: Normal cephalic, atraumatic, external auditory canals are patent EYES: Extraocular muscles are intact, pupil are equally round and reactive to light and accommodation MUSCULOSKELETAL: Well developed , well nourished, good range of motion ENDOCRINE: No thyromegaly was palpated LYMPHATICS: No cervical chain or axillary nodes were noted HEMATOPOIETIC: No bruising NECK: Supple, no JVD, no thyromegaly was noted LUNGS: Clear to auscultation in all lung shel[place] without rhonchi or wheezing HEART: RRR, S!, S2 present. Peripheral pulses intact, no obvious murmurs noted ABDOMEN: Soft, nontender. Positive bowel sounds, no organomegaly, normal bowel sounds EXTREMITIES: Without clubbing, cyanosis, or edema. Pedal pulses intact. Negative Homans sign NEUROLOGIC: Normal speech and tone. A&O x 3, moves all extremities, no obvious focal deficits PSYCHIATRIC: Normal affect, normal mood. Stable SKIN: No ulcerations or rashes, good skin turgor, no jaundice VASCULAR: Good capillary refill, neurovascular bundle appears to be intact Labs: Labs: Laboratory Tests Test 04/01/20 17:38 White Blood Count 6.0 x10^3/uL (4.0-11.0) Red Blood Count 4.45 x10^6/uL (3.50-5.40) Hemoglobin 10.5 g/dL (12.0-15.5) Hematocrit 34.2 % (36.0-47.0) Mean Corpuscular Volume 77 fL (79-100) Mean Corpuscular Hemoglobin 24 pg (25-35) Mean Corpuscular Hemoglobin Concent 31 g/dL (31-37) Red Cell Distribution Width 15.8 % (11.5-14.5) Platelet Count 264 x10^3/uL (140-400) Neutrophils (%) (Auto) 57 % (31-73) Lymphocytes (%) (Auto) 30 % (24-48) Monocytes (%) (Auto) 11 % (0-9) Eosinophils (%) (Auto) 3 % (0-3) Basophils (%) (Auto) 0 % (0-3) Neutrophils # (Auto) 3.4 x10^3/uL (1.8-7.7) Lymphocytes # (Auto) 1.8 x10^3/uL (1.0-4.8) Monocytes # (Auto) 0.6 x10^3/uL (0.0-1.1) Eosinophils # (Auto) 0.2 x10^3/uL (0.0-0.7) Basophils # (Auto) 0.0 x10^3/uL (0.0-0.2) Sodium Level 142 mmol/L (136-145) Potassium Level 3.6 mmol/L (3.5-5.1) Chloride Level 107 mmol/L (98-107) Carbon Dioxide Level 27 mmol/L (21-32) Anion Gap 8 (6-14) Blood Urea Nitrogen 18 mg/dL (7-20) Creatinine 1.6 mg/dL (0.6-1.0) Estimated GFR (Cockcroft-Gault) 39.7 Glucose Level 122 mg/dL (70-99) Calcium Level 8.9 mg/dL (8.5-10.1) Troponin I Quantitative < 0.017 ng/mL (0.000-0.055) Laboratory Tests Test 04/01/20 17:38 White Blood Count 6.0 x10^3/uL (4.0-11.0) Red Blood Count 4.45 x10^6/uL (3.50-5.40) Hemoglobin 10.5 g/dL (12.0-15.5) Hematocrit 34.2 % (36.0-47.0) Mean Corpuscular Volume 77 fL (79-100) Mean Corpuscular Hemoglobin 24 pg (25-35) Mean Corpuscular Hemoglobin Concent 31 g/dL (31-37) Red Cell Distribution Width 15.8 % (11.5-14.5) Platelet Count 264 x10^3/uL (140-400) Neutrophils (%) (Auto) 57 % (31-73) Lymphocytes (%) (Auto) 30 % (24-48) Monocytes (%) (Auto) 11 % (0-9) Eosinophils (%) (Auto) 3 % (0-3) Basophils (%) (Auto) 0 % (0-3) Neutrophils # (Auto) 3.4 x10^3/uL (1.8-7.7) Lymphocytes # (Auto) 1.8 x10^3/uL (1.0-4.8) Monocytes # (Auto) 0.6 x10^3/uL (0.0-1.1) Eosinophils # (Auto) 0.2 x10^3/uL (0.0-0.7) Basophils # (Auto) 0.0 x10^3/uL (0.0-0.2) Sodium Level 142 mmol/L (136-145) Potassium Level 3.6 mmol/L (3.5-5.1) Chloride Level 107 mmol/L (98-107) Carbon Dioxide Level 27 mmol/L (21-32) Anion Gap 8 (6-14) Blood Urea Nitrogen 18 mg/dL (7-20) Creatinine 1.6 mg/dL (0.6-1.0) Estimated GFR (Cockcroft-Gault) 39.7 Glucose Level 122 mg/dL (70-99) Calcium Level 8.9 mg/dL (8.5-10.1) Troponin I Quantitative < 0.017 ng/mL (0.000-0.055) Images: Images CXR IMPRESSION: 1. There are a few prominent linear markings at both lung bases, likely related to low lung volumes and atelectasis. 2. Mild cardiomegaly. Assessment/Plan Assessment/Plan Chest pain concerning for unstable angina/NSTEMI MIRIAM due to vasomotor nephropathy Microcytic anemia due to possible iron deficiency anemia Morbid obesity DIONNE - with adequate CPAP compliance AYANA = 4 Troponin negative Continue aspirin, consider Plavix if intermediate risk will defer this to cardiology Cardiology consulted for predischarge stress testing or left heart cath Continue nitroglycerin as needed for pain Continue beta-denilson if blood pressures allow Continue high intensity statins IV morphine as needed Consider Lovenox Maintain O2 sats between 88 to 95% Trend troponins Repeat EKG in the a.m. Continue telemetry monitoring Monitor for electrolyte abnormalities Avoid NSAIDs Ferritin level Lovenox for DVT prophylaxis ADA diet Full code Discussed with RN and SW Disposition cardiology evaluation Surrogate decision maker is undesignated Justifications for Admission Other Justification MARK ENCISO MD Apr 01, 2020 18:55
--- NOTE | 2020-04-01 18:57 | RAD ---
Two-view chest dated 04/01/2020. Comparison made to 06/18/2019. CLINICAL INDICATION: Chest pain. FINDINGS: PA and lateral views obtained. Heart size is mildly enlarged, stable. Lung volumes are low, limiting evaluation. There prominent linear markings at both lung bases. No consolidation or pleural effusion. No pneumothorax. IMPRESSION: 1. There are a few prominent linear markings at both lung bases, likely related to low lung volumes and atelectasis. 2. Mild cardiomegaly. Electronically signed by: Ryan Mayes MD (04/01/2020 6:54 PM) CLARISA
[2020-04-01] MEDS ORDERED: POTASSIUM CHLORIDE 20 MEQ TABLET.ER. PO PRN (19:00)
[2020-04-01] MEDS ORDERED: DEXTROSE 50% 25 GM / 50ML DISP.SYRIN. IV PRN ×2 (19:00→19:15)
[2020-04-01] MEDS ORDERED: MAGNESIUM SULFATE 2GM 50 ML IV SCH (19:00)
[2020-04-01] MEDS ORDERED: MORPHINE SULFATE 10 MG/ML VIAL. IV ONE (19:00)
[2020-04-01] MEDS ORDERED: ASPIRIN CHEWABLE 81 MG TABLET. PO ONE (19:00)
[2020-04-01] MEDS ORDERED: POTASSIUM CHLORIDE 10MEQ 100 ML IV PRN (19:00)
[2020-04-01] MEDS ORDERED: POTASSIUM CHLORIDE 10MEQ 100 ML IV SCH (19:00)
[2020-04-01] MEDS ORDERED: SENNOSIDES 8.6 MG TABLET PO PRN (19:00)
[2020-04-01] MEDS ORDERED: DOCUSATE SODIUM 100 MG CAPSULE. PO PRN (19:00)
[2020-04-01] MEDS ORDERED: ONDANSETRON PF 4 MG/2 ML VIAL. IVP PRN (19:00)
[2020-04-01] MEDS ORDERED: MORPHINE SULFATE 2 MG/ML VIAL. IV PRN (19:15)
[2020-04-01] MEDS ORDERED: ELECTROLYTE (NON-ICU) PROTOCOL MC PRN (19:45)
[2020-04-01 20:30] VITALS: BP 120/51
[2020-04-01] MEDS ORDERED: ZOLPIDEM 5 MG TABLET. PO PRN (21:00)
[2020-04-01] MEDS ORDERED: MAGNESIUM OXIDE 400 MG TABLET PO SCH (21:00)
[2020-04-01] MEDS: FAMOTIDINE 20 MG TABLET. PO SCH (21:22)
[2020-04-01] MEDS ORDERED: GABAPENTIN 300 MG CAPSULE. PO ONE (21:30)
[2020-04-01] MEDS ORDERED: INSULIN GLARGINE SYRINGE. SQ ONE (21:30)
[2020-04-01 23:00] VITALS: BP 126/52
[2020-04-02 03:06] VITALS: BP 127/50
[2020-04-02 04:16] LABS: BASO % 0 % (0-3); EOS # 0.2 x10^3/uL (0.0-0.7); EOS % 3 % (0-3); HEMATOCRIT 28.3 % (36.0-47.0); LYMPH % 32 % (24-48); MEAN CORPUSCULAR HEMOGLOBIN 24 pg (25-35); MEAN CORPUSCULAR HGB CONC 32 g/dL (31-37); MEAN CORPUSCULAR VOLUME 77 fL (79-100); MONO # 0.7 x10^3/uL (0.0-1.1); MONO % 11 % (0-9); NEUT # 3.3 x10^3/uL (1.8-7.7); NEUT % 54 % (31-73); PLATELET COUNT 218 x10^3/uL (140-400); RED BLOOD COUNT 3.68 x10^6/uL (3.50-5.40); RED CELL DISTRIBUTION WIDTH 15.9 % (11.5-14.5); WHITE BLOOD COUNT 6.2 x10^3/uL (4.0-11.0)
[2020-04-02 04:33] LABS: CALCIUM 8.4 mg/dL (8.5-10.1); CREATININE 1.9 mg/dL (0.6-1.0); GFR 32.5; MAGNESIUM 1.9 mg/dL (1.8-2.4); PHOSPHORUS 4.2 mg/dL (2.6-4.7); POTASSIUM 3.7 mmol/L (3.5-5.1)
[2020-04-02 07:00] VITALS: BP 120/54
[2020-04-02] MEDS: INSULIN LISPRO 300 UNITS/3 ML VIAL. SQ SCH ×3 (07:24→17:00)
[2020-04-02] MEDS ORDERED: ASPIRIN ENTERIC COATED 81 MG TABLET.DR. PO SCH (08:00)
[2020-04-02] MEDS: FAMOTIDINE 20 MG TABLET. PO SCH (08:15)
--- NOTE | 2020-04-02 08:51 | EKG ---
[facility] [address] [place] [address] Test Date: 2020-04-01 Test Time: 17:29:43 Pat Name: MARIKA SMITH Department: Room: Gender: F Appeals Manager: : [id number] Requested By: ANJELICA STEINER Order Number: [id number] Reading MD: Measurements Intervals [place] Rate: 55 P: 33 MS: 182 QRS: -41 QRSD: 132 T: 175 QT: 496 QTc: 477 Interpretive Statements SINUS RHYTHM RIGHT BUNDLE BRANCH BLOCK ABNORMAL ECG RI6.02 No previous ECG available for comparison
[2020-04-02] MEDS ORDERED: ENOXAPARIN 40 MG/0.4 ML SYRINGE. SQ SCH (09:00)
[2020-04-02] MEDS ORDERED: THIAMINE INJ 100 MG in IV DEXTROSE 5% 50 ML IV SCH (09:00)
[2020-04-02] MEDS ORDERED: ENOXAPARIN 30 MG/0.3 ML SYRINGE. SQ SCH (09:00)
--- NOTE | 2020-04-02 10:33 | PDOC ---
[facility] PROGRESS NOTE Date of Service DOS: DATE: 04/02/20 TIME: 10:27 Chief Complaint Chief Complaint A/P: Chest pain - clearly high risk ACS, negative troponins. With pain after eating, concern for PUD. will consult GI as well. MIRIAM on some CKD- likely vasomotor nephropathy, will hydrate gently given her CHF history chronic diastolic CHF Shortness of breath - may be having a mild asthma attack as well, will give nebulizer treatments Anemia - has slight anemia historically, will check iron studies. unclear etiology Asthma with COPD - nebs as above Hypertension - cont meds Dm2 - she is on a hefty insulin regimen. Will back off on her scheduled insulin a bit while inpatient hold metformin Neuropathy - on gabapentin Morbid obesity - counseled in depth on lifestyle modification. Given her super morbid obesity a referral to bariatric surgeon may be a consideration CAD s/p CARLOS x 6 - will cont meds DIONNE - CPAP overnight History of Present Illness History of Present Illness Ms Castro is a 59 year old female w/ PMHx Asthma, CHF, COPD, Hypertension, Dm2, neuropathy, morbid obesity, CAD s/p CARLOS x 6 who presents with chest pain. She rates her pain as 8 out of 10 in severity and sharp, is substernal, and radiates to her epigastrium. She states she took 2 baby aspirin today. She notes associated shortness of breath for 2 weeks. The patient states she took nitroglycerin today before arrival and it relieved her chest pain but not her shortness of breath. She had negative troponin, but had Cr 1.4 and Hb 9.8 with MCV 77. CXR shows prominent pulmonary vasculature. She underwent a cardiac stress test on 01/11/2020 that was low risk, but did show EF of 42%. Afebrile overnight. CR up to 1.9. She complains today to me about epigastric pain 1 hour after eating. No vomiting. She notes this is not improved with nitroglycerin not improved with aspirin and not improved with a PPI. No prior EGD. Vitals/I&O Vitals/I&O: Vital Signs Date Time Temp Pulse Resp B/P (MAP) Pulse Ox O2 Delivery O2 Flow Rate FiO2 04/02/20 08:00 Room Air 04/02/20 07:00 97.5 58 20 120/54 (76) 99 97.5 I & O 904/01/20 04/02/20 14:59 22:59 06:59 Intake Total 100 ml 500 ml Balance 100 ml 500 ml Physical Exam Lungs: Clear Labs Labs: Laboratory Tests Test 04/01/20 17:38 04/01/20 20:33 04/01/20 21:12 04/02/20 03:45 White Blood Count 6.0 x10^3/uL (4.0-11.0) 6.2 x10^3/uL (4.0-11.0) Red Blood Count 4.45 x10^6/uL (3.50-5.40) 3.68 x10^6/uL (3.50-5.40) Hemoglobin 10.5 g/dL (12.0-15.5) 9.0 g/dL (12.0-15.5) Hematocrit 34.2 % (36.0-47.0) 28.3 % (36.0-47.0) Mean Corpuscular Volume 77 fL (79-100) 77 fL (79-100) Mean Corpuscular Hemoglobin 24 pg (25-35) 24 pg (25-35) Mean Corpuscular Hemoglobin Concent 31 g/dL (31-37) 32 g/dL (31-37) Red Cell Distribution Width 15.8 % (11.5-14.5) 15.9 % (11.5-14.5) Platelet Count 264 x10^3/uL (140-400) 218 x10^3/uL (140-400) Neutrophils (%) (Auto) 57 % (31-73) 54 % (31-73) Lymphocytes (%) (Auto) 30 % (24-48) 32 % (24-48) Monocytes (%) (Auto) 11 % (0-9) 11 % (0-9) Eosinophils (%) (Auto) 3 % (0-3) 3 % (0-3) Basophils (%) (Auto) 0 % (0-3) 0 % (0-3) Neutrophils # (Auto) 3.4 x10^3/uL (1.8-7.7) 3.3 x10^3/uL (1.8-7.7) Lymphocytes # (Auto) 1.8 x10^3/uL (1.0-4.8) 2.0 x10^3/uL (1.0-4.8) Monocytes # (Auto) 0.6 x10^3/uL (0.0-1.1) 0.7 x10^3/uL (0.0-1.1) Eosinophils # (Auto) 0.2 x10^3/uL (0.0-0.7) 0.2 x10^3/uL (0.0-0.7) Basophils # (Auto) 0.0 x10^3/uL (0.0-0.2) 0.0 x10^3/uL (0.0-0.2) Sodium Level 142 mmol/L (136-145) 143 mmol/L (136-145) Potassium Level 3.6 mmol/L (3.5-5.1) 3.7 mmol/L (3.5-5.1) Chloride Level 107 mmol/L (98-107) 108 mmol/L (98-107) Carbon Dioxide Level 27 mmol/L (21-32) 30 mmol/L (21-32) Anion Gap 8 (6-14) 5 (6-14) Blood Urea Nitrogen 18 mg/dL (7-20) 21 mg/dL (7-20) Creatinine 1.6 mg/dL (0.6-1.0) 1.9 mg/dL (0.6-1.0) Estimated GFR (Cockcroft-Gault) 39.7 32.5 Glucose Level 122 mg/dL (70-99) 111 mg/dL (70-99) Calcium Level 8.9 mg/dL (8.5-10.1) 8.4 mg/dL (8.5-10.1) Troponin I Quantitative < 0.017 ng/mL (0.000-0.055) < 0.017 ng/mL (0.000-0.055) Glucose (Fingerstick) 120 mg/dL (70-99) Phosphorus Level 4.2 mg/dL (2.6-4.7) Magnesium Level 1.9 mg/dL (1.8-2.4) Test 04/02/20 07:17 Glucose (Fingerstick) 88 mg/dL (70-99) Assessment and Plan Assessmemt and Plan Problems Medical Problems: (1) Chest pain Status: Acute Comment Review of Relevant I have reviewed the following items shady (where applicable) has been applied. Medications: Current Medications Medications (Trade) Dose Ordered Sig/Lui Route PRN Reason Start Time Stop Time Status Last Admin Dose Admin Morphine Sulfate (Morphine Sulfate) 5 mg 1X ONCE IV 04/01/20 19:00 04/01/20 19:01 DC 04/01/20 19:33 Aspirin (Aspirin Chewable) 324 mg 1X ONCE PO 04/01/20 19:00 04/01/20 19:01 DC 04/01/20 19:32 Thiamine HCl 100 mg/Dextrose 51 ml @ 102 mls/hr DAILY IV 04/02/20 09:00 04/02/20 10:09 Ondansetron HCl (Zofran) 4 mg PRN Q6HRS PRN IVP NAUSEA/VOMITING 04/01/20 19:00 04/01/20 19:33 Aspirin (Ecotrin) 81 mg DAILYWBKFT PO 04/02/20 08:00 04/02/20 08:15 Famotidine (Pepcid) 20 mg BID PO 04/01/20 21:00 04/02/20 08:15 Enoxaparin Sodium (Lovenox 40mg Syringe) 40 mg Q24H SQ 04/02/20 09:00 04/02/20 08:16 Gabapentin (Neurontin) 600 mg 1X ONCE PO 04/01/20 21:30 04/01/20 21:31 DC 04/01/20 21:22 Zolpidem Tartrate (Ambien) 5 mg 1X PRN PRN PO INSOMNIA 04/01/20 21:00 04/01/20 21:22 Insulin Glargine (Lantus Syringe) 50 unit 1X ONCE SQ 04/01/20 21:30 04/01/20 21:31 DC 04/01/20 21:22 Justifications for Admission Chest Pain Indications Is patient at high risk?: Yes Justification for admission: Patient is high risk based on hemodynamic instability, CHF, abnormal EKG/ECG/cardiac biomarkers/physical exam findings in context of chest pain persisting despite parenteral analgesics & optimal anti-anginal therapy. Other Justification DANY CORTES MD Apr 02, 2020 10:33
[2020-04-02] MEDS ORDERED: HYDR-2868 PO (10:49)
[2020-04-02] MEDS ORDERED: ISOS120T4 PO (10:49)
[2020-04-02] MEDS ORDERED: INSU100V41 SQ (10:49)
[2020-04-02] MEDS ORDERED: METO-313 PO (10:49)
[2020-04-02] MEDS ORDERED: ALBU2.5V5 NEB (10:49)
[2020-04-02] MEDS ORDERED: NITR0.4T22 SL (10:49)
[2020-04-02] MEDS ORDERED: BUME1TAB3 PO (10:49)
[2020-04-02] MEDS ORDERED: FERR325T14 PO (10:49)
[2020-04-02] MEDS ORDERED: NYST100054 PO (10:49)
[2020-04-02] MEDS ORDERED: INSU100I27 SQ (10:49)
[2020-04-02 11:00] VITALS: BP 177/69
--- NOTE | 2020-04-02 11:07 | PDOC2 ---
JOSE EDUARDO GRECO PIGMENT MIXER 04/02/20 1107: CARDIAC CONSULT DATE OF CONSULT Date of Consult DATE: 04/02/20 TIME: 11:06 REASON FOR CONSULT Reason for Consult: Chest pain REFERRING PHYSICIAN Referring Physician: Dr. Encarnacion SOURCE Source: Chart review, Patient HISTORY OF PRESENT ILLNESS HISTORY OF PRESENT ILLNESS This is a 59 yo female who presented secondary to chest pain. Has been present for the last 3 weeks. Occurs about an hour after eating. Describes as burning sensation in her central chest. No associated dizziness, diaphoresis, palpitations, or vomiting. Reports chronic SOA, no worse than usual. Reports co mpliance with medications including DAPT with ASA/Plavix. PAST MEDICAL HISTORY Cardiovascular: CAD, CHF, HTN, Hyperlipidemia Pulmonary: COPD, Other (DIONNE) CENTRAL NERVOUS SYSTEM: Periperal neuropathy GI: Irritable bowel disease Psych: Anxiety, Depression Musculoskeletal: Osteoarthritis Renal/: Chronic renal insuff Endocrine: Diabetes PAST SURGICAL HISTORY Past Surgical History: Other (PCI/stents, I and D) FAMILY HISTORY Family History: Diabetes SOCIAL HISTORY Smoke: Quit CURRENT MEDICATIONS CURRENT MEDICATIONS Current Medications Medications (Trade) Dose Ordered Sig/Lui Route PRN Reason Start Time Stop Time Status Last Admin Dose Admin Morphine Sulfate (Morphine Sulfate) 5 mg 1X ONCE IV 04/01/20 19:00 04/01/20 19:01 DC 04/01/20 19:33 Aspirin (Aspirin Chewable) 324 mg 1X ONCE PO 04/01/20 19:00 04/01/20 19:01 DC 04/01/20 19:32 Thiamine HCl 100 mg/Dextrose 51 ml @ 102 mls/hr DAILY IV 04/02/20 09:00 04/02/20 10:09 Ondansetron HCl (Zofran) 4 mg PRN Q6HRS PRN IVP NAUSEA/VOMITING 04/01/20 19:00 04/01/20 19:33 Aspirin (Ecotrin) 81 mg DAILYWBKFT PO 04/02/20 08:00 04/02/20 08:15 Famotidine (Pepcid) 20 mg BID PO 04/01/20 21:00 04/02/20 08:15 Enoxaparin Sodium (Lovenox 40mg Syringe) 40 mg Q24H SQ 04/02/20 09:00 04/02/20 08:16 Gabapentin (Neurontin) 600 mg 1X ONCE PO 04/01/20 21:30 04/01/20 21:31 DC 04/01/20 21:22 Zolpidem Tartrate (Ambien) 5 mg 1X PRN PRN PO INSOMNIA 04/01/20 21:00 04/01/20 21:22 Insulin Glargine (Lantus Syringe) 50 unit 1X ONCE SQ 04/01/20 21:30 04/01/20 21:31 DC 04/01/20 21:22 ALLERGIES ALLERGIES: Coded Allergies: No Known Drug Allergies (Unverified , 04/08/15) ROS Review of System 14 point ROS conducted with pertinent positives noted above in HPI PHYSICAL EXAM General: Alert, Oriented X3, Cooperative, No acute distress HEENT: Atraumatic Lungs: Clear to auscultation, Other (diminished bases) Heart: Regular rate, Normal S1, Normal S2 Abdomen: Soft, Other (obese) Extremities: Other (trace bilateral LE edema ) Skin: No significant lesion Neuro: Normal speech, Sensation intact Psych/Mental Status: Mental status NL, Mood NL MUSCULOSKELETAL: Osteoarthritic changes both hands VITALS/I&O VITALS/I&O: Vital Signs Date Time Temp Pulse Resp B/P (MAP) Pulse Ox O2 Delivery O2 Flow Rate FiO2 04/02/20 08:00 Room Air 04/02/20 07:00 97.5 58 20 120/54 (76) 99 97.5 I & O 04/01/20 04/01/20 04/02/20 15:00 23:00 07:00 Intake Total 100 ml 500 ml Balance 100 ml 500 ml LABS Lab: Laboratory Tests Test 04/01/20 17:38 04/01/20 20:33 04/01/20 21:12 04/02/20 03:45 White Blood Count 6.0 x10^3/uL (4.0-11.0) 6.2 x10^3/uL (4.0-11.0) Red Blood Count 4.45 x10^6/uL (3.50-5.40) 3.68 x10^6/uL (3.50-5.40) Hemoglobin 10.5 g/dL (12.0-15.5) L 9.0 g/dL (12.0-15.5) L Hematocrit 34.2 % (36.0-47.0) L 28.3 % (36.0-47.0) L Mean Corpuscular Volume 77 fL (79-100) L 77 fL (79-100) L Mean Corpuscular Hemoglobin 24 pg (25-35) L 24 pg (25-35) L Mean Corpuscular Hemoglobin Concent 31 g/dL (31-37) 32 g/dL (31-37) Red Cell Distribution Width 15.8 % (11.5-14.5) H 15.9 % (11.5-14.5) H Platelet Count 264 x10^3/uL (140-400) 218 x10^3/uL (140-400) Neutrophils (%) (Auto) 57 % (31-73) 54 % (31-73) Lymphocytes (%) (Auto) 30 % (24-48) 32 % (24-48) Monocytes (%) (Auto) 11 % (0-9) H 11 % (0-9) H Eosinophils (%) (Auto) 3 % (0-3) 3 % (0-3) Basophils (%) (Auto) 0 % (0-3) 0 % (0-3) Neutrophils # (Auto) 3.4 x10^3/uL (1.8-7.7) 3.3 x10^3/uL (1.8-7.7) Lymphocytes # (Auto) 1.8 x10^3/uL (1.0-4.8) 2.0 x10^3/uL (1.0-4.8) Monocytes # (Auto) 0.6 x10^3/uL (0.0-1.1) 0.7 x10^3/uL (0.0-1.1) Eosinophils # (Auto) 0.2 x10^3/uL (0.0-0.7) 0.2 x10^3/uL (0.0-0.7) Basophils # (Auto) 0.0 x10^3/uL (0.0-0.2) 0.0 x10^3/uL (0.0-0.2) Sodium Level 142 mmol/L (136-145) 143 mmol/L (136-145) Potassium Level 3.6 mmol/L (3.5-5.1) 3.7 mmol/L (3.5-5.1) Chloride Level 107 mmol/L (98-107) 108 mmol/L (98-107) H Carbon Dioxide Level 27 mmol/L (21-32) 30 mmol/L (21-32) Anion Gap 8 (6-14) 5 (6-14) L Blood Urea Nitrogen 18 mg/dL (7-20) 21 mg/dL (7-20) H Creatinine 1.6 mg/dL (0.6-1.0) H 1.9 mg/dL (0.6-1.0) H Estimated GFR (Cockcroft-Gault) 39.7 32.5 Glucose Level 122 mg/dL (70-99) H 111 mg/dL (70-99) H Calcium Level 8.9 mg/dL (8.5-10.1) 8.4 mg/dL (8.5-10.1) L Troponin I Quantitative < 0.017 ng/mL (0.000-0.055) < 0.017 ng/mL (0.000-0.055) Glucose (Fingerstick) 120 mg/dL (70-99) H Phosphorus Level 4.2 mg/dL (2.6-4.7) Magnesium Level 1.9 mg/dL (1.8-2.4) Test 04/02/20 07:17 Glucose (Fingerstick) 88 mg/dL (70-99) Laboratory Tests 04/01/20 17:38 04/02/20 03:45 Laboratory Tests 04/01/20 17:38 04/02/20 03:45 ECHOCARDIOGRAM ECHOCARDIOGRAM <Conclusion> Left ventricle systolic function is mildly impaired. The Ejection Fraction is 40-45%. Trace to mild mitral regurgitation. Trace tricuspid regurgitation. The PA pressure was estimated at 62 mmHg. There is no evidence of significant pericardial effusion. DATE: 01/11/20 1218 STRESS TEST STRESS TEST Conclusion 1. Regadenoson cardioisotope stress test was technically difficult but showed diaphragmatic attenuation artifact without any evidence of ischemia. 2. Mild left ventricular systolic dysfunction with ejection fraction calculated at 42%. 3. Low to intermediate risk for cardiac events. DATE: 01/11/20 0910 HEART CATH HEART CATH FINDINGS 1. Hemodynamics: Left ventricular end-diastolic pressure of 32 mmHg. No pu llback gradient across the aortic valve. 2. Coronary angiography: a. The left main coronary artery arose from the left sinus of Valsalva, gave rise to the left anterior descending, ramus intermedius and left circumflex arteries and did not show any significant stenosis. b. The left anterior descending artery showed patent stents in the proximal and mid to distal segments. The midsegment that was not stented showed 90% stenosis. c. The ramus intermedius artery showed a widely patent stent in the proximal segment. d. The left circumflex artery did not show any significant stenosis. e. The right coronary artery arose from the right sinus of Valsalva that did not show any significant stenosis. Conclusion 1. Patent previously placed stents in the left anterior descending artery and the ramus intermedius artery. 90% stenosis involving the midsegment of the left anterior descending artery. 2. Successful PCI/drug eluting stent placement to the left anterior descending artery. 3. Elevated left ventricular end-diastolic pressure, probably acute on chronic diastolic heart failure. Recommendations 1. Aspirin 325 mg daily 2. Plavix 75 mg daily for preferably one year 3. Cardiovascular risk factor modification 4. Optimization of medical therapy for diastolic heart failure. DATE: 11/09/17 0952 ASSESSMENT/PLAN ASSESSMENT/PLAN 1. Chest pain, atypical; AMI ruled out. Most probably GI in nature. MPI 01/06 without evidence of ischemia 2. CAD s/p PCI to the LAD and ramus 3. Chronic diastolic/systolic CHF; Echo 01/06 with LVEF 40-45%. appears compensated 4. Hypertension; controlled 5. Hyperlipidemia; statin 6. Diabetes, II 7. MIRIAM on CKD 8. DIONNE wtih CPAP 9. COPD Recommendations Continue secondary prevention measures No further cardiac workup at this time Consider GI consult Follow up in our office with Dr. Louis as scheduled ERICA ADEN MD 04/02/202005: CARDIAC CONSULT ASSESSMENT/PLAN ASSESSMENT/PLAN Patient seen and examined. Agree with [facility] PRINTER's assessment and plan. CP with atypical features and most probably GI etiology. NE ruled out. CAD status stable overall 2D echo showed EF 45% Recent MPI did not show any significant ischemia No further cardiac workup is indicated at this time Thank you for your consultatio JOSE EDUARDO GRECO APRN Apr 02, 2020 11:07 ERICA ADEN MD Apr 02, 2020 20:06
[2020-04-02] MEDS ORDERED: oxyCODONE/APAP 5/325 1 TAB TABLET PO PRN (13:15)
[2020-04-02] MEDS ORDERED: NITROGLYCERIN SUBLINGUAL 0.4 MG BOTTLE OF 25. SL PRN (13:15)
[2020-04-02] MEDS ORDERED: ALBUTEROL SULFATE 2.5 MG/3 ML NEBU. NEB PRN (13:15)
[2020-04-02] MEDS ORDERED: amLODIPine BESYLATE 10 MG TABLET PO SCH (13:15)
[2020-04-02] MEDS ORDERED: CYCLOBENZAPRINE 10 MG TABLET. PO PRN (13:15)
[2020-04-02] MEDS ORDERED: ZOLPIDEM 5 MG TABLET. PO PRN (13:15)
[2020-04-02] MEDS ORDERED: ALPRAZolam 1 MG TABLET PO PRN (13:15)
[2020-04-02] MEDS ORDERED: GABAPENTIN 300 MG CAPSULE. PO SCH (14:00)
--- NOTE | 2020-04-02 14:08 | NUR ---
SS following for discharge planning. SS reviewed pt chart and discussed with pt RN. Pt is from home and is currently on room air. Cardiology and GI consulted. Discharge plan is to home when medically ready. SS will continue to follow for discharge planning.
--- NOTE | 2020-04-02 14:26 | PDOC2 ---
GI CONSULT Date of Service: DATE: 04/02/20 TIME: 14:02 Reason For Consult: epigastric pain 1 hr after eating HPI: HPI: 59 y/o female who reports 3 weeks of "stepping" and "pressure" discomfort in central chest and epigastrium w/ radiation to both breasts (but not to back). Comes and goes. Noted after getting out of bed or about 30 minutes after eating. Tells me nitroglycerin helps sometimes for awhile. H/o GERD - has been on Protonix QD (takes it while eating breakfast) for about 1 year. No dysphagia. Occasional vomiting ("liquid"). No diarrhea, constipation, or weight loss. Denies hematemesis, hematochezia, and melena, but does mention frequent vaginal bleeding for about 6 months - not always with wiping but when she sits down on the bed sometimes there will be blood on the sheet. Says she told Dr. Figueroa about this and she had some sort of test and saw [facility]. (Can see pelv US from 03/08/20 - limited by body habitus.) No previous EGD or colonoscopy. Denies GB, liver, pancreas, and PUD history. H/o CAD on ASA (but says no longer Plavix). Chronic back pain on OxyContin PRN and Advil PRN. Also takes iron QD. Chronic microcytic anemia on past labs dating back to 2014 in [facility]. Iron deficiency noted in 2017. Nurses asking about possible discharge today. PMH: PMH: CAD w/ stents, CHF, HTN, HLD, COPD, DIONNE, peipheral neuropathy, anxiety, depression, OA, CKD, DM left ankle surgery/hardware, bilateral CTR, left perirectal/labial abscess I&D FH: Family History: No pertinent hx Social History: Smoke: Quit ALCOHOL: rare Drugs: None ROS: GEN: Denies fevers, chills, sweats HEENT: Denies blurred vision, sore throat CV: +chest pain RESP: Denies shortness of air, cough GI: Per HPI : Denies hematuria, dysuria ENDO: Denies weight changes NEURO: Denies confusion, dizziness MSK: +back pain SKIN: Denies jaundice, pruritus Vitals: Vitals: Vital Signs Date Time Temp Pulse Resp B/P (MAP) Pulse Ox O2 Delivery O2 Flow Rate FiO2 04/02/20 13:52 63 177/69 04/02/20 11:00 97.9 21 95 Room Air 97.9 Labs: Labs: Laboratory Tests Test 04/01/20 17:38 04/01/20 20:33 04/01/20 21:12 04/02/20 03:45 White Blood Count 6.0 x10^3/uL (4.0-11.0) 6.2 x10^3/uL (4.0-11.0) Red Blood Count 4.45 x10^6/uL (3.50-5.40) 3.68 x10^6/uL (3.50-5.40) Hemoglobin 10.5 g/dL (12.0-15.5) 9.0 g/dL (12.0-15.5) Hematocrit 34.2 % (36.0-47.0) 28.3 % (36.0-47.0) Mean Corpuscular Volume 77 fL (79-100) 77 fL (79-100) Mean Corpuscular Hemoglobin 24 pg (25-35) 24 pg (25-35) Mean Corpuscular Hemoglobin Concent 31 g/dL (31-37) 32 g/dL (31-37) Red Cell Distribution Width 15.8 % (11.5-14.5) 15.9 % (11.5-14.5) Platelet Count 264 x10^3/uL (140-400) 218 x10^3/uL (140-400) Neutrophils (%) (Auto) 57 % (31-73) 54 % (31-73) Lymphocytes (%) (Auto) 30 % (24-48) 32 % (24-48) Monocytes (%) (Auto) 11 % (0-9) 11 % (0-9) Eosinophils (%) (Auto) 3 % (0-3) 3 % (0-3) Basophils (%) (Auto) 0 % (0-3) 0 % (0-3) Neutrophils # (Auto) 3.4 x10^3/uL (1.8-7.7) 3.3 x10^3/uL (1.8-7.7) Lymphocytes # (Auto) 1.8 x10^3/uL (1.0-4.8) 2.0 x10^3/uL (1.0-4.8) Monocytes # (Auto) 0.6 x10^3/uL (0.0-1.1) 0.7 x10^3/uL (0.0-1.1) Eosinophils # (Auto) 0.2 x10^3/uL (0.0-0.7) 0.2 x10^3/uL (0.0-0.7) Basophils # (Auto) 0.0 x10^3/uL (0.0-0.2) 0.0 x10^3/uL (0.0-0.2) Sodium Level 142 mmol/L (136-145) 143 mmol/L (136-145) Potassium Level 3.6 mmol/L (3.5-5.1) 3.7 mmol/L (3.5-5.1) Chloride Level 107 mmol/L (98-107) 108 mmol/L (98-107) Carbon Dioxide Level 27 mmol/L (21-32) 30 mmol/L (21-32) Anion Gap 8 (6-14) 5 (6-14) Blood Urea Nitrogen 18 mg/dL (7-20) 21 mg/dL (7-20) Creatinine 1.6 mg/dL (0.6-1.0) 1.9 mg/dL (0.6-1.0) Estimated GFR (Cockcroft-Gault) 39.7 32.5 Glucose Level 122 mg/dL (70-99) 111 mg/dL (70-99) Calcium Level 8.9 mg/dL (8.5-10.1) 8.4 mg/dL (8.5-10.1) Troponin I Quantitative < 0.017 ng/mL (0.000-0.055) < 0.017 ng/mL (0.000-0.055) Glucose (Fingerstick) 120 mg/dL (70-99) Phosphorus Level 4.2 mg/dL (2.6-4.7) Magnesium Level 1.9 mg/dL (1.8-2.4) Test 04/02/20 07:17 04/02/20 11:31 Glucose (Fingerstick) 88 mg/dL (70-99) 95 mg/dL (70-99) Allergies: Coded Allergies: No Known Drug Allergies (Unverified , 9/20/15) Medications: Current Medications Medications (Trade) Dose Ordered Sig/Lui Route PRN Reason Start Time Stop Time Status Last Admin Dose Admin Morphine Sulfate (Morphine Sulfate) 5 mg 1X ONCE IV 04/01/20 19:00 04/01/20 19:01 DC 04/01/20 19:33 Aspirin (Aspirin Chewable) 324 mg 1X ONCE PO 04/01/20 19:00 04/01/20 19:01 DC 04/01/20 19:32 Thiamine HCl 100 mg/Dextrose 51 ml @ 102 mls/hr DAILY IV 04/02/20 09:00 04/02/20 10:09 Ondansetron HCl (Zofran) 4 mg PRN Q6HRS PRN IVP NAUSEA/VOMITING 04/01/20 19:00 04/01/20 19:33 Aspirin (Ecotrin) 81 mg DAILYWBKFT PO 04/02/20 08:00 04/02/20 08:15 Famotidine (Pepcid) 20 mg BID PO 04/01/20 21:00 04/02/20 08:15 Enoxaparin Sodium (Lovenox 40mg Syringe) 40 mg Q24H SQ 04/02/20 09:00 04/02/20 08:16 Gabapentin (Neurontin) 600 mg 1X ONCE PO 04/01/20 21:30 04/01/20 21:31 DC 04/01/20 21:22 Zolpidem Tartrate (Ambien) 5 mg 1X PRN PRN PO INSOMNIA 04/01/20 21:00 04/01/20 21:22 Insulin Glargine (Lantus Syringe) 50 unit 1X ONCE SQ 04/01/20 21:30 04/01/20 21:31 DC 04/01/20 21:22 Amlodipine Besylate (Norvasc) 10 mg DAILY PO 04/02/20 13:15 04/02/20 13:52 Gabapentin (Neurontin) 600 mg TID PO 04/02/20 14:00 04/02/20 13:52 Imaging: Imaging: CXR 04/01 IMPRESSION: 1. There are a few prominent linear markings at both lung bases, likely related to low lung volumes and atelectasis. 2. Mild cardiomegaly. PE: GEN: up to chair, morbidly obese HEENT: Atraumatic, PERRL LUNGS: CTAB HEART: RRR ABD: quiet BS, soft, very large, epigastric discomfort toward RUQ EXTREMITY: No edema SKIN: No rashes, no jaundice NEURO/PSYCH: A & O 3 A/P: A/P: Chest/epigastric discomfort, MIRIAM Chronic KIRILL GERD, occasional vomiting CRC screen - none H/o CAD on ASA, CKD Chronic pain, PRN NSAID use Postmenopausal bleeding BMI 65 -- Agree w/ PPI - timing could be better (30-45 min before eating). Increased risk for endoscopy w/ extreme obesity. Continue iron. EDU TRAORE Apr 02, 2020 14:26
[2020-04-02 15:00] VITALS: BP 154/64
--- NOTE | 2020-04-02 16:25 | CARD ---
MR#: [id number] Date of Study: 04/02/2020 Ordering Physician: MARK ENCISO, Referring Physician: MARK ENCISO, Tech: Liss Bell APPROVED REPORT EXAM: Two-dimensional and M-mode echocardiogram with Doppler and color Doppler. Other Information Quality : AverageHR: 67bpm Technically limited study due to morbid obesity INDICATION Dyspnea Chest Pain 2D DIMENSIONS RVDd3.7 (2.9-3.5cm)Left Atrium(2D)4.3 (1.6-4.0cm) IVSd1.2 (0.7-1.1cm)Aortic Root(2D)3.0 (2.0-3.7cm) LVDd6.0 (3.9-5.9cm)LVOT Diameter2.2 (1.8-2.4cm) PWd1.2 (0.7-1.1cm)LVDs4.3 (2.5-4.0cm) FS (%) 28.7 %SV97.5 ml LVEF(%)54.4 (>50%) Aortic Valve AoV Peak Mars.164.1cm/sAoV VTI37.8cm AO Peak GR.10.8mmHgLVOT VTI 21.92cm AO Mean GR.6mmHg Mitral Valve MV E Kgxjdrzs706.7cm/sMV E Peak Gr.6mmHg MV DECEL [id number] A Gujsfnmi27.1cm/s MV E Mean Gr.3mmHgE/A Ratio1.3 TDI Lateral E' P. V6.89cm/sMedial E' P. V5.86cm/s E/Lateral E'15.8E/Medial E'18.5 Tricuspid Valve TR P. Rwwmpytm596as/sRAP [id number] TR Peak Gr.28pdXhMGEB27vjCg Pulmonary Vein S1 Kpgrlocq45.6cm/sS2 Luydfhwy40.59cm/s D2 Ndukvhqt54.6cm/sPVa adjemiwo10pqoa LEFT VENTRICLE The Left Ventricle is mildly dilated. There is mild concentric left ventricular hypertrophy. The left ventricular systolic function is mildly impaired. The Ejection Fraction is 45%. Transmitral Doppler flow pattern is Grade II-pseudonormal filling dynamics. RIGHT VENTRICLE The right ventricle is normal size. There is normal right ventricular wall thickness. The right ventr icular systolic function is normal. ATRIA The left atrium is mildly dilated. The right atrium is mildly to moderately dilated. The interatrial septum is intact with no evidence for an atrial septal defect or patent foramen ovale as noted on 2-D or Doppler imaging. AORTIC VALVE The aortic valve is thickened but opens well. Doppler and Color Flow revealed no significant aortic r egurgitation. Calculated aortic valve area is 2.34 cm2 with maximum pressure gradient of 10 mmHg and mean pressure gradient of 7 mmHg. There is no significant aortic valvular stenosis. MITRAL VALVE The mitral valve is calcified but opens well. There is no evidence of mitral valve prolapse. There is no mitral valve stenosis with a mean gradient of 2.85 mmHg. Doppler and Color-flow revealed trace mi tral regurgitation. TRICUSPID VALVE The tricuspid valve is normal in structure and function. Doppler and Color Flow revealed trace tricus pid regurgitation with an estimated PAP of 48 mmHg. There is no tricuspid valve stenosis. PULMONIC VALVE The pulmonic valve is not well visualized. Doppler and Color Flow revealed trace to mild pulmonic savana vular regurgitation. GREAT VESSELS The aortic root is normal in size. The ascending aorta is normal in size. The IVC is dilated and chiara apses <50% with inspiration. PERICARDIAL EFFUSION There is no evidence of significant pericardial effusion. Critical Notification Critical Value: No <Conclusion> The left ventricular systolic function is mildly impaired. The Ejection Fraction is 45%. Transmitral Doppler flow pattern is Grade II-pseudonormal filling dynamics. Trace mitral regurgitation. Trace tricuspid regurgitation with an estimated PAP of 48 mmHg. There is no evidence of significant pericardial effusion. Signed by : Felipe Cantu, Electronically Approved : 04/02/2020 16:24:52
[2020-04-02] MEDS ORDERED: PANTOPRAZOLE 40 MG TABLET.DR. PO SCH (16:30)
--- NOTE | 2020-04-02 16:48 | PDOC3 ---
Discharge Summary Visit Information Date of Admission: Apr 01, 2020 Date of Discharge: Apr 02, 2020 Admitting Diagnosis: Chest pain Final Diagnosis Problems Medical Problems: (1) Chest pain Status: Acute Brief Hospital Course Allergies Allergies Coded Allergies Type Severity Reaction Last Updated Verified No Known Drug Allergies 04/08/15 No Vital Signs Vital Signs Date Time Temp Pulse Resp B/P (MAP) Pulse Ox O2 Delivery O2 Flow Rate FiO2 04/02/20 15:00 97.8 69 21 154/64 (94) 93 Room Air 97.8 Lab Results Laboratory Tests Test 04/01/20 17:38 04/01/20 20:33 04/01/20 21:12 04/02/20 03:45 White Blood Count 6.0 x10^3/uL (4.0-11.0) 6.2 x10^3/uL (4.0-11.0) Red Blood Count 4.45 x10^6/uL (3.50-5.40) 3.68 x10^6/uL (3.50-5.40) Hemoglobin 10.5 g/dL (12.0-15.5) 9.0 g/dL (12.0-15.5) Hematocrit 34.2 % (36.0-47.0) 28.3 % (36.0-47.0) Mean Corpuscular Volume 77 fL (79-100) 77 fL (79-100) Mean Corpuscular Hemoglobin 24 pg (25-35) 24 pg (25-35) Mean Corpuscular Hemoglobin Concent 31 g/dL (31-37) 32 g/dL (31-37) Red Cell Distribution Width 15.8 % (11.5-14.5) 15.9 % (11.5-14.5) Platelet Count 264 x10^3/uL (140-400) 218 x10^3/uL (140-400) Neutrophils (%) (Auto) 57 % (31-73) 54 % (31-73) Lymphocytes (%) (Auto) 30 % (24-48) 32 % (24-48) Monocytes (%) (Auto) 11 % (0-9) 11 % (0-9) Eosinophils (%) (Auto) 3 % (0-3) 3 % (0-3) Basophils (%) (Auto) 0 % (0-3) 0 % (0-3) Neutrophils # (Auto) 3.4 x10^3/uL (1.8-7.7) 3.3 x10^3/uL (1.8-7.7) Lymphocytes # (Auto) 1.8 x10^3/uL (1.0-4.8) 2.0 x10^3/uL (1.0-4.8) Monocytes # (Auto) 0.6 x10^3/uL (0.0-1.1) 0.7 x10^3/uL (0.0-1.1) Eosinophils # (Auto) 0.2 x10^3/uL (0.0-0.7) 0.2 x10^3/uL (0.0-0.7) Basophils # (Auto) 0.0 x10^3/uL (0.0-0.2) 0.0 x10^3/uL (0.0-0.2) Sodium Level 142 mmol/L (136-145) 143 mmol/L (136-145) Potassium Level 3.6 mmol/L (3.5-5.1) 3.7 mmol/L (3.5-5.1) Chloride Level 107 mmol/L (98-107) 108 mmol/L (98-107) Carbon Dioxide Level 27 mmol/L (21-32) 30 mmol/L (21-32) Anion Gap 8 (6-14) 5 (6-14) Blood Urea Nitrogen 18 mg/dL (7-20) 21 mg/dL (7-20) Creatinine 1.6 mg/dL (0.6-1.0) 1.9 mg/dL (0.6-1.0) Estimated GFR (Cockcroft-Gault) 39.7 32.5 Glucose Level 122 mg/dL (70-99) 111 mg/dL (70-99) Calcium Level 8.9 mg/dL (8.5-10.1) 8.4 mg/dL (8.5-10.1) Troponin I Quantitative < 0.017 ng/mL (0.000-0.055) < 0.017 ng/mL (0.000-0.055) Glucose (Fingerstick) 120 mg/dL (70-99) Phosphorus Level 4.2 mg/dL (2.6-4.7) Magnesium Level 1.9 mg/dL (1.8-2.4) Test 04/02/20 07:17 04/02/20 11:31 04/02/20 16:40 Glucose (Fingerstick) 88 mg/dL (70-99) 95 mg/dL (70-99) 97 mg/dL (70-99) Laboratory Tests Test 04/01/20 17:38 04/01/20 20:33 04/01/20 21:12 04/02/20 03:45 White Blood Count 6.0 x10^3/uL (4.0-11.0) 6.2 x10^3/uL (4.0-11.0) Red Blood Count 4.45 x10^6/uL (3.50-5.40) 3.68 x10^6/uL (3.50-5.40) Hemoglobin 10.5 g/dL (12.0-15.5) 9.0 g/dL (12.0-15.5) Hematocrit 34.2 % (36.0-47.0) 28.3 % (36.0-47.0) Mean Corpuscular Volume 77 fL (79-100) 77 fL (79-100) Mean Corpuscular Hemoglobin 24 pg (25-35) 24 pg (25-35) Mean Corpuscular Hemoglobin Concent 31 g/dL (31-37) 32 g/dL (31-37) Red Cell Distribution Width 15.8 % (11.5-14.5) 15.9 % (11.5-14.5) Platelet Count 264 x10^3/uL (140-400) 218 x10^3/uL (140-400) Neutrophils (%) (Auto) 57 % (31-73) 54 % (31-73) Lymphocytes (%) (Auto) 30 % (24-48) 32 % (24-48) Monocytes (%) (Auto) 11 % (0-9) 11 % (0-9) Eosinophils (%) (Auto) 3 % (0-3) 3 % (0-3) Basophils (%) (Auto) 0 % (0-3) 0 % (0-3) Neutrophils # (Auto) 3.4 x10^3/uL (1.8-7.7) 3.3 x10^3/uL (1.8-7.7) Lymphocytes # (Auto) 1.8 x10^3/uL (1.0-4.8) 2.0 x10^3/uL (1.0-4.8) Monocytes # (Auto) 0.6 x10^3/uL (0.0-1.1) 0.7 x10^3/uL (0.0-1.1) Eosinophils # (Auto) 0.2 x10^3/uL (0.0-0.7) 0.2 x10^3/uL (0.0-0.7) Basophils # (Auto) 0.0 x10^3/uL (0.0-0.2) 0.0 x10^3/uL (0.0-0.2) Sodium Level 142 mmol/L (136-145) 143 mmol/L (136-145) Potassium Level 3.6 mmol/L (3.5-5.1) 3.7 mmol/L (3.5-5.1) Chloride Level 107 mmol/L (98-107) 108 mmol/L (98-107) Carbon Dioxide Level 27 mmol/L (21-32) 30 mmol/L (21-32) Anion Gap 8 (6-14) 5 (6-14) Blood Urea Nitrogen 18 mg/dL (7-20) 21 mg/dL (7-20) Creatinine 1.6 mg/dL (0.6-1.0) 1.9 mg/dL (0.6-1.0) Estimated GFR (Cockcroft-Gault) 39.7 32.5 Glucose Level 122 mg/dL (70-99) 111 mg/dL (70-99) Calcium Level 8.9 mg/dL (8.5-10.1) 8.4 mg/dL (8.5-10.1) Troponin I Quantitative < 0.017 ng/mL (0.000-0.055) < 0.017 ng/mL (0.000-0.055) Glucose (Fingerstick) 120 mg/dL (70-99) Phosphorus Level 4.2 mg/dL (2.6-4.7) Magnesium Level 1.9 mg/dL (1.8-2.4) Test 04/02/20 07:17 04/02/20 11:31 04/02/20 16:40 Glucose (Fingerstick) 88 mg/dL (70-99) 95 mg/dL (70-99) 97 mg/dL (70-99) Brief Hospital Course Ms Castro is a 59 year old female w/ PMHx Asthma, CHF, COPD, Hypertension, Dm2, neuropathy, morbid obesity, CAD s/p CARLOS x 6 who presents with chest pain. She rates her pain as 8 out of 10 in severity and sharp, is substernal, and radiates to her epigastrium. She states she took 2 baby aspirin today. She notes associated shortness of breath for 2 weeks. The patient states she took nitroglycerin today before arrival and it relieved her chest pain but not her shortness of breath. She had negative troponin, but had Cr 1.4 and Hb 9.8 with MCV 77. CXR shows prominent pulmonary vasculature. She underwent a cardiac stress test on 01/11/20 that was low risk, but did show EF of 42%. Consults: GI and Cardiology Afebrile overnight. Troponin negative. She complains today to me about epigastric pain 1 hour after eating prior to admit, but her pain has improved since admission. No vomiting. She notes this is not improved with nitroglycerin not improved with aspirin and not improved with a PPI. No prior EGD. Echo performed: The left ventricular systolic function is mildly impaired. The Ejection Fraction is 45%. Transmitral Doppler flow pattern is Grade II-pseudonormal filling dynamics. Trace mitral regurgitation. Trace tricuspid regurgitation with an estimated PAP of 48 mmHg. There is no evidence of significant pericardial effusion. History suggestive of uncontrolled reflux. Improper PPI dosing may contribute. Long-standing KIRILL w/o prior evaluation including 03/08/2020 pelvic sono. GI will contact to schedule outpatient colonoscopy and EGD. Chest pain - clearly high risk ACS, negative troponins. With pain after eating, concern for PUD. will consult GI as well. MIRIAM on some CKD- likely vasomotor nephropathy, will hydrate gently given her CHF history chronic diastolic CHF Shortness of breath - may be having a mild asthma attack as well, will give nebulizer treatments Anemia - has slight anemia historically, will check iron studies. unclear etiology Asthma with COPD - nebs as above Hypertension - cont meds Dm2 - she is on a hefty insulin regimen. Will back off on her scheduled insulin a bit while inpatient hold metformin Neuropathy - on gabapentin Morbid obesity - counseled in depth on lifestyle modification. Given her super morbid obesity a referral to bariatric surgeon may be a consideration CAD s/p CARLOS x 6 - will cont meds DIONNE - CPAP overnight Greater than 30 minutes spent on d/c Discharge Information Condition at Discharge: Improved Follow Up: Weeks (1) Disposition/Orders: D/C to Home Scheduled Alprazolam (Alprazolam) 1 Mg Tablet, 0.5 MG PO PRN BID for anxiety, #60 (Reported) Entered as Reported by: Enrique Bell on 06/18/192032 Last Action: Continued on 04/02/201311 by DANY CORTES MD Amlodipine Besylate (Amlodipine Besylate) 10 Mg Tablet, 10 MG PO DAILY for blood pressure, (Reported) Entered as Reported by: Enrique Bell on 06/18/192032 Last Action: Continued on 04/02/201311 by DANY CORTES MD Bumetanide (Bumetanide) 1 Mg Tablet, 1 MG PO BID for CHF, (Reported) Entered as Reported by: TRISH SHAH RN on 04/02/201048 Last Action: Continued on 04/02/201311 by DANY CORTES MD Clopidogrel Bisulfate (Clopidogrel) 75 Mg Tablet, 75 MG PO DAILYWBKFT for 75 Days, #30 Ref 5 Prescribed by: ERICA ADEN on 11/10/17 1342 Last Action: Continued on 04/02/201311 by DANY CORTES MD Ferrous Sulfate (Ferrous Sulfate) 325 Mg Tablet, 325 MG PO DAILY for Anemia, (Reported) Entered as Reported by: TRISH SHAH RN on 04/02/201048 Last Action: Continued on 04/02/201311 by DANY CORTES MD Fluticasone Propionate (Fluticasone Propionate Nasal [place]) 16 Gm [place].susp, 2 SPRAY NS DAILY for copd, #1 Ref 11 (Reported) Entered as Reported by: Enrique Bell on 06/18/192032 Last Action: Continued on 04/02/201311 by DANY CORTES MD Gabapentin (Gabapentin) 600 Mg Tablet, 600 MG PO TID for NEUROGENIC PAIN, (Reported) Entered as Reported by: Enrique Bell on 06/18/192032 Last Action: Converted on 04/02/201311 by DANY CORTES MD Hydralazine Hcl (Hydralazine Hcl) 25 Mg Tablet, 25 MG PO BID for HTN, (Reported) Entered as Reported by: TRISH SHAH RN on 04/02/201048 Last Action: Continued on 04/02/201311 by DANY CORTES MD Insulin Aspart (Insulin Aspart) 100 Unit/1 Ml Vial, 60 UNIT SQ TIDAC for DM, (Reported) Entered as Reported by: TRISH SHAH RN on 04/02/201048 Last Action: Reviewed on 04/02/201048 by TRISH SHAH RN Insulin Detemir (Levemir Flextouch) 100 Unit/1 Ml Insuln.pen, 30 UNIT SQ HS for DM, (Reported) Entered as Reported by: TRISH SHAH RN on 04/02/201048 Last Action: Converted on 04/02/201311 by DANY CORTES MD Isosorbide Mononitrate (Isosorbide Mononitrate Er) 120 Mg Tab.er.24h, 120 MG PO DAILY for HTN, (Reported) Entered as Reported by: TRISH SHAH RN on 04/02/201048 Last Action: Converted on 04/02/201311 by DANY CORTES MD Losartan Potassium (Losartan Potassium) 100 Mg Tablet, 100 MG PO DAILY, (Re ported) Entered as Reported by: VIGNESH MONDRAGON on 11/09/17 0718 Last Action: Reviewed on 04/02/201048 by TRISH SHAH RN Metoprolol Tartrate (Lopressor) 100 Mg Tablet, 50 MG PO BID for HTN, (Reported) Entered as Reported by: TRISH SHAH RN on 04/02/201048 Last Action: Converted on 04/02/201311 by DANY CORTES MD Nystatin (Nystatin) 100,000 Unit/1 Ml Oral.susp, 100,000 UNIT PO DAILY for Rash, (Reported) Entered as Reported by: TRISH SHAH RN on 04/02/201048 Last Action: Reviewed on 04/02/201048 by TRISH SHAH RN Oxybutynin Chloride (Oxybutynin Chloride) 5 Mg Tablet, 1 TAB PO BID, #60 Ref 11 (Reported) LAST DOSE: 10/02/15 AM NEXT DOSE: 10/03/15 AM Entered as Reported by: NATHALY PETERS on 10/02/15349 Last Action: Continued on 04/02/201311 by DANY CORTES MD Pantoprazole Sodium (Protonix ) 40 Mg Tablet.dr, 1 TAB PO DAILY, #30 Ref 5 (Reported) Entered as Reported by: DUANE FUENTES on 09/08/161951 Last Action: Continued on 04/02/201311 by DANY CORTES MD Potassium Chloride (Potassium Chloride ) 20 Meq Tablet.er, 20 MEQ PO BID for chf, (Reported) Entered as Reported by: Enrique Bell on 06/18/192032 Last Action: Continued on 04/02/201311 by DANY CORTES MD Ropinirole Hcl (Requip) 1 Mg Tablet, 1 TAB PO QHS, #30 Ref 2 (Reported) Entered as Reported by: DUANE FUENTES on 09/08/161951 Last Action: Continued on 04/02/201311 by DANY CORTES MD Rosuvastatin Calcium (Crestor) 20 Mg Tablet, 20 MG PO HS for FOR CHOLESTEROL, #30 Ref 0 (Reported) LAST DOSE: 10/01/15 BEDTIME NEXT DOSE: 10/02/15 BEDTIME Entered as Reported by: NATHALY PETERS on 10/02/15349 Last Action: Converted on 04/02/201311 by DANY CORTES MD Scheduled PRN Albuterol Sulfate (Proair Respiclick) 90 Mcg Aer.pow.ba, 2 PUFF IH PRN Q4-6HRS PRN for SHORTNESS OF BREATH, (Reported) Entered as Reported by: DUANE FUENTES on 09/08/162002 Last Action: Reviewed on 04/02/201048 by TRISH SHAH RN Albuterol Sulfate (Albuterol Sulfate Neb Soln) 2.5 Mg/3 Ml Vial.neb, 2.5 MG NEB Q4-6HRS PRN for SHORTNESS OF BREATH, Ref 0 (Reported) Entered as Reported by: TRISH SHAH RN on 04/02/201048 Last Action: Continued on 04/02/201311 by DANY CORTES MD Cyclobenzaprine Hcl (Cyclobenzaprine Hcl) 10 Mg Tablet, 1 TAB PO TID PRN for MUSCLE SPASMS, #90 (Reported) Entered as Reported by: DUANE FUENTES on 09/08/162002 Last Action: Continued on 04/02/201311 by DANY CORTES MD Hydroxyzine Hcl (Hydroxyzine Hcl) 50 Mg Tablet, 50 MG PO TID PRN PRN for ITCHING, (Reported) Entered as Reported by: SHAWN AMBROSE on 11/09/171045 Last Action: Reviewed on 04/02/201048 by TRISH SHAH RN Nitroglycerin (NITROGLYCERIN SubLingual) 0.4 Mg Tab.subl, 0.4 MG SL PRN Q5MIN PRN for CHEST PAIN, (Reported) Entered as Reported by: TRISH SHAH RN on 04/02/201048 Last Action: Continued on 04/02/201311 by DANY CORTES MD Oxycodone/Apap 5-325 (Percocet 5-325 Mg Tablet ) 1 Each Tablet, 1 TAB PO PRN Q8HRS PRN for PAIN, Ref 0 (Reported) Entered as Reported by: SHAWN AMBROSE on 11/09/171045 Last Action: Continued on 04/02/201311 by DANY CORTES MD Zolpidem Tartrate (Zolpidem Tartrate) 5 Mg Tablet, 5 MG PO PRN QHS PRN for INSOMNIA, Ref 0 (Reported) Entered as Reported by: Enrique Bell on 06/18/192032 Last Action: Continued on 04/02/201311 by DANY CORTES MD Discontinued Medications Albuterol Sulfate (Albuterol Sulfate Neb Soln) 0.63 Mg/3 Ml Vial.neb, 1 VIAL NEB TID, #150 Ref 1 (Reported) Entered as Reported by: NATHALY PETERS on 10/02/15335 Last Action: Discontinued on 04/02/201048 by TRISH SHAH RN Furosemide (Furosemide) 40 Mg Tablet, 1 TAB PO BID, #30 Ref 5 (Reported) LAST DOSE: 10/01/15 AM NEXT DOSE: 10/03/15 AM Entered as Reported by: KAY KOROMA on 04/04/142148 Last Action: Discontinued on 04/02/201048 by TRISH SHAH RN Insulin Aspart (Novolog) 100 Unit/1 Ml Cartridge, 70 UNIT SQ TIDWMEALS for blood sugar, (Reported) Entered as Reported by: Enrique Bell on 06/18/192043 Last Action: Discontinued on 04/02/201048 by TRISH SHAH RN Insulin Detemir (Levemir) 100 Unit/1 Ml Vial, 60 UNIT SQ HS for blood sugar, (Reported) Entered as Reported by: GENE HARTMAN on 05/15/16 0422 Last Action: Discontinued on 04/02/201048 by TRISH SHAH RN Metformin Hcl (Metformin Hcl) 500 Mg Tablet, 500 MG PO BIDWMEALS for ANTI- DIABETIC, Ref 0 (Reported) Entered as Reported by: SHAWN AMBROSE on 11/09/17 1046 Last Action: Reviewed on 04/02/201048 by TRISH SHAH RN Justicifation of Admission Dx: Justifications for Admission: Justification of Admission Dx: Yes DANY CORTES MD Apr 02, 2020 16:48
[2020-04-02] MEDS ORDERED: POTASSIUM CHLORIDE 20 MEQ TABLET.ER. PO SCH (17:00)
--- NOTE | 2020-04-02 17:52 | NUR ---
Discharge Note: MARIKA SMITH Discharge instructions and discharge home medications reviewed with Patient and a copy given. All questions have been answered and understanding verbalized. The following instructions and handouts were given: chest pain Patient discharged to home with self care via wheelchair.
[2020-04-02] MEDS ORDERED: INSULIN GLARGINE SYRINGE. SQ SCH (21:00)
[2020-04-02] MEDS ORDERED: OXYBUTYNIN CHLORIDE 5 MG TABLET PO SCH (21:00)
[2020-04-02] MEDS ORDERED: ATORVASTATIN CALCIUM 40 MG TABLET. PO SCH (21:00)
[2020-04-02] MEDS ORDERED: rOPINIRole 1 MG TABLET. PO SCH (21:00)
[2020-04-02] MEDS ORDERED: BUMETANIDE 1 MG TABLET. PO SCH (21:00)
[2020-04-02] MEDS ORDERED: METOPROLOL TART IMMED RELEASE 50 MG TABLET. PO SCH (21:00)
[2020-04-02] MEDS ORDERED: hydrALAZINE 25 MG TABLET PO SCH (21:00)
[2020-04-03] MEDS ORDERED: CLOPIDOGREL BISULFATE 75 MG TABLET PO SCH (08:00)
[2020-04-03] MEDS ORDERED: FERROUS SULFATE 325 MG TABLET. PO SCH (08:00)
[2020-04-03] MEDS ORDERED: FLUTICASONE 50MCG/NASAL SPRAY 16GM BOTTLE. NS SCH (09:00)
[2020-04-03] MEDS ORDERED: ISOSORBIDE MONONITRATE ER 30 MG TAB.ER.24H PO SCH (09:00)
== END 2020-04-02 17:30 | disposition home or self-care (01) ==
LOC: ER 17:23 → 2 NORTH 18:25
PROVIDERS: ADMIT Internal Medicine; ATTEND Internal Medicine
DX: R07.2 Precordial pain (principal); I13.0 Hypertensive heart and chronic kidney disease with heart failure and stage 1 through stage 4 chronic kidney disease, or unspecified chronic kidney disease; I50.42 Chronic combined systolic (congestive) and diastolic (congestive) heart failure; E11.22 Type 2 diabetes mellitus with diabetic chronic kidney disease; I25.10 Atherosclerotic heart disease of native coronary artery without angina pectoris; I25.2 Old myocardial infarction; J44.9 Chronic obstructive pulmonary disease, unspecified; G47.33 Obstructive sleep apnea (adult) (pediatric); E66.01 Morbid (severe) obesity due to excess calories; E78.5 Hyperlipidemia, unspecified; J98.11 Atelectasis; N18.9 Chronic kidney disease, unspecified; F32.9 Major depressive disorder, single episode, unspecified; K21.9 Gastro-esophageal reflux disease without esophagitis; D50.9 Iron deficiency anemia, unspecified; E11.40 Type 2 diabetes mellitus with diabetic neuropathy, unspecified; F41.9 Anxiety disorder, unspecified; Z79.891 Long term (current) use of opiate analgesic; Z87.891 Personal history of nicotine dependence; Z95.5 Presence of coronary angioplasty implant and graft
CPT/HCPCS: 36415; 71046; 80048; 82962; 83735; 84100; 84484; 85025; 93005; 93306; 96365; 96372; 96375; 97162; 97165; 99285; G0378; J1650; J1815; J2270; J2405; J3411; J7060; G0379

== ENCOUNTER → 2020-05-01 | Outpatient (CLI) | payer OTHER ==
[2020-04-02 15:00] VITALS: BP 154/64
[~2020-05-01] MED LIST changes: +ALBU2.5V5 NEB; +AMLO-187 PO; -AMLO10TA8 PO; +BUME1TAB3 PO; +INSU100V41 SQ; +ISOS120T4 PO; +METO-313 PO; +NITR0.4T22 SL; +NYST100054 PO
== END ==
LOC: LAB 14:07
PROVIDERS: ATTEND Obstetrics & Gynecology
DX: Z01.812 Encounter for preprocedural laboratory examination (principal); Z20.828 Contact with and (suspected) exposure to other viral communicable diseases; N95.0 Postmenopausal bleeding
CPT/HCPCS: U0003-CS

== ENCOUNTER 2020-05-04 06:32 | Day surgery (SDC) | payer OTHER ==
[2020-05-04] MEDS ORDERED: ONDANSETRON PF 4 MG/2 ML VIAL. IV PRN (07:00)
[2020-05-04] MEDS ORDERED: HYDROmorphone 2 MG/ML VIAL IV PRN (07:00)
[2020-05-04] MEDS ORDERED: PROCHLORPERAZINE 10 MG/2 ML VIAL. IV PRN (07:00)
[2020-05-04] MEDS ORDERED: IV RINGERS,LACTATED 1000ML 1,000 ML IV SCH (07:00)
[2020-05-04] MEDS ORDERED: fentaNYL PF VIAL 100 MCG/2 ML VIAL IV PRN ×2 (07:00)
[2020-05-04] MEDS ORDERED: MORPHINE SULFATE 2 MG/ML VIAL. IV PRN (07:00)
[2020-05-04] MEDS ORDERED: INSULIN LISPRO 100 UNIT/ML 3ML VIAL for OP,RR ONLY. SQ PRN (07:15)
[2020-05-04 07:24] LABS: BASO # 0.1 x10^3/uL (0.0-0.2); BASO % 1 % (0-3); EOS # 0.1 x10^3/uL (0.0-0.7); EOS % 2 % (0-3); HEMATOCRIT 31.7 % (36.0-47.0); LYMPH # 1.4 x10^3/uL (1.0-4.8); LYMPH % 25 % (24-48); MEAN CORPUSCULAR HEMOGLOBIN 24 pg (25-35); MEAN CORPUSCULAR HGB CONC 32 g/dL (31-37); MEAN CORPUSCULAR VOLUME 77 fL (79-100); MONO # 0.6 x10^3/uL (0.0-1.1); MONO % 10 % (0-9); NEUT # 3.5 x10^3/uL (1.8-7.7); NEUT % 62 % (31-73); PLATELET COUNT 221 x10^3/uL (140-400); RED BLOOD COUNT 4.13 x10^6/uL (3.50-5.40); RED CELL DISTRIBUTION WIDTH 15.5 % (11.5-14.5); WHITE BLOOD COUNT 5.7 x10^3/uL (4.0-11.0)
[2020-05-04] MEDS ORDERED: SUCCINYLCHOLINE 200 MG/10 ML VIAL. ONE (07:46)
[2020-05-04] MEDS ORDERED: fentaNYL PF VIAL 100 MCG/2 ML VIAL ONE ×2 (07:48→08:35)
[2020-05-04] MEDS ORDERED: GLYCOPYRROLATE 1 MG/5 ML VIAL. ONE (08:02)
[2020-05-04] MEDS ORDERED: LIDOCAINE 2% PF 5 ML VIAL. ONE (08:08)
[2020-05-04] MEDS ORDERED: PROPOFOL 10 MG/ML (20ML) VIAL. IV ONE (08:08)
[2020-05-04] MEDS ORDERED: ONDANSETRON PF 4 MG/2 ML VIAL. ONE (08:08)
[2020-05-04] MEDS ORDERED: DEXAMETHASONE SOD PHOS 4 MG/ML VIAL ONE (08:08)
[2020-05-04] MEDS ORDERED: ePHEDrine PF IN SALINE 50 MG/10 ML SYRINGE. IV ONE (08:09)
[2020-05-04] MEDS ORDERED: SEVOFLURANE 16 TO 30 MINUTES. IH ONE (08:18)
[2020-05-04] MEDS ORDERED: OXYC1TAB15 PO (08:37)
[2020-05-04] MEDS ORDERED: IBUP-1060 PO (08:37)
[2020-05-04] MEDS ORDERED: oxyCODONE/APAP 5/325 1 TAB TABLET ONE (08:51)
[2020-05-04] MEDS ORDERED: INSULIN LISPRO 100 UNIT/ML 3ML VIAL for OP,RR ONLY. SQ ONE (09:00)
--- NOTE | 2020-05-04 09:17 | PDOC4 ---
OPERATIVE NOTE: PreOp Dx: 1.) PMB, 2.) u/s unable to evaluate the endometrial strip, 3.) multiple co-morbidities PostOp Dx: same Procedure: H/S, D&C Surgeon: Doc Villegas Anesthesia: GETA EBL: minimal Findings: a few benign appearing polyps throughout the endometrial cavity Complications: none Path: endometrial curettage CHRISTINA VILLEGAS MD May 04, 2020 09:17
[2020-05-04 09:35] VITALS: BP 184/70
--- NOTE | 2020-05-04 09:36 | OP ---
DATE OF SURGERY: 05/04/2020 PREOPERATIVE DIAGNOSES: 1. Postmenopausal bleeding. 2. Ultrasound unable to evaluate endometrial stripe. 3. Multiple comorbidities. POSTOPERATIVE DIAGNOSES: 1. Postmenopausal bleeding. 2. Ultrasound unable to evaluate endometrial stripe. 3. Multiple comorbidities. PROCEDURE: Hysteroscopy and D and C. SURGEON: Christina Villegas MD ANESTHESIA: General endotracheal intubation. ESTIMATED BLOOD LOSS: Minimal. FINDINGS: A few benign appearing polyps throughout the endometrial cavity. COMPLICATIONS: None. PATHOLOGY: Endometrial curetting. DESCRIPTION OF PROCEDURE: The patient was taken to the operating room where general endotracheal intubation was obtained without difficulty. The patient was prepped and draped in the normal sterile fashion. A posterior weighted speculum was then placed in the patient's vagina, followed by a right angle retractor to visualize the cervix. At that time, a Pap smear was performed since one was unable to be performed in the office. Once the Pap smear had been completed, a single tooth tenaculum was placed on the anterior lip of the cervix. The cervix was sufficiently dilated to allow for the uterine sound to be placed. The uterus sounded to 10 cm. At that point, the hysteroscope was placed, visualization of the endometrial cavity revealed multiple polyps throughout, all of them appeared benign. Once the hysteroscope was removed, curetting was performed until gritty texture was felt in all 4 quadrants. The specimen was sent to pathology. The hysteroscope was then replaced with many of the polyps removed, but some still present. At that point, the hysteroscope was removed as well as the single tooth tenaculum. No bleeding was seen at the tenaculum site. Good hemostasis was noted. At that point, the patient was taken to the recovery room in stable condition. CHRISTINA VILLEGAS MD DR: KATHRYN/estrella JOB#: [id number] / [id number]
[2020-05-04] MEDS ORDERED: oxyCODONE/APAP 5/325 1 TAB TABLET PO ONE (10:00)
--- NOTE | 2020-05-08 09:08 | PATHOLOGY ---
[facility] Accession Number: [id number] . 01 Material submitted: . endometrium - ENDOMETRIAL CURETTINGS . 01 Clinical history: . PMB . 02 Diagnosis: Endometrial curettings: - Blood containing few segments of disordered proliferative endometrium and strips of squamous mucosa showing focal chronic inflammation. . (JPM:mml; 05/07/2020) [facility] 05/07/2020 1616 Local . 02 Comment: There is no atypia or evidence of malignancy. . (JPM:mml; 05/07/2020) . 02 Electronically signed: . Alfa Turcios MD, Pathologist NPI- [id number] . 01 Gross description: . Received in formalin labeled "Ann Castro, endometrial curettings" is a 2.8 x 0.9 x 0.1 cm aggregate of red-brown friable soft tissue fragments. The specimen is submitted entirely in A1. ([facility]; 05/06/2020) [facility] 05/06/2020 1341 Local . 02 Pathologist provided ICD-10: N85.9, N71.1 . 02 CPT . 473080 Specimen Comment: A courtesy copy of this report has been sent to [phone] Specimen Comment: [id number] Specimen Comment: Report sent to / DR GUERRA Performed at: 01 [facility] [address], [place] [id number] MD Niko Duarte MD Phone: [phone] Performed at: 02 [facility] [address] [place], [place] [id number] MD Alfa Turcios MD Phone: [phone]
== END 2020-05-04 09:43 ==
LOC: SURG 06:32
PROVIDERS: ATTEND Obstetrics & Gynecology
DX: N95.0 Postmenopausal bleeding (principal); N71.1 Chronic inflammatory disease of uterus; J44.9 Chronic obstructive pulmonary disease, unspecified; I13.0 Hypertensive heart and chronic kidney disease with heart failure and stage 1 through stage 4 chronic kidney disease, or unspecified chronic kidney disease; N18.9 Chronic kidney disease, unspecified; E11.22 Type 2 diabetes mellitus with diabetic chronic kidney disease; I50.9 Heart failure, unspecified; E78.5 Hyperlipidemia, unspecified; F41.9 Anxiety disorder, unspecified; F32.9 Major depressive disorder, single episode, unspecified; G47.33 Obstructive sleep apnea (adult) (pediatric); Z79.82 Long term (current) use of aspirin; Z79.899 Other long term (current) drug therapy; Z87.891 Personal history of nicotine dependence; Z83.3 Family history of diabetes mellitus; Z82.49 Family history of ischemic heart disease and other diseases of the circulatory system; Z83.6 Family history of other diseases of the respiratory system; Z79.84 Long term (current) use of oral hypoglycemic drugs
CPT/HCPCS: 36415; 58558; 82962; 85025; 86850; 86900; 86901; 88305; J0330; J1100; J1815; J2405; J2704; J3010; J3490; J7030

== ENCOUNTER → 2020-05-07 | Day surgery (SDC) | payer OTHER ==
[~2020-05-07] MED LIST changes: +IV RINGERS,LACTATED 1000ML 1,000 ML IV SCH; +LIDOCAINE 2% PF 5 ML VIAL. ONE; +PROPOFOL 10 MG/ML (20ML) VIAL. IV ONE
--- NOTE | 2020-05-07 13:45 | PDOC4 ---
PROCEDURE Procedure Colonoscopy/EGD with biopsies Indication: NCCP, GERD, KIRILL, screen for colon cancer. Meds: per anesthesia Findings: E--Healed reflux at 40cm. G--Striped antral erythema, biopsied. D--Normal to second portion, biopsied second portion. TIGIST--Normal --'Scope advanced to cecum. Prep adequate. Mucosa normal. No diverticula, polyps, masses seen. Internal hemorrhoids on retroflex. Dorothy. well. IMP: GERD Antral erythema Hemorrhoids. REC: Resume home meds, diet. Await path. F/u in 2 weeks. Consider SBCE if no answers from biopsies. CHRISTINA ROBLEDO MD May 07, 2020 13:45
[2020-05-07 14:00] VITALS: BP 165/58
--- NOTE | 2020-05-09 18:07 | PATHOLOGY ---
[facility] Accession Number: [id number] . 01 Material submitted: . PART A: duodenum - DUODENUM BIOPSY PART B: stomach - ANTRUM BIOPSY . 01 Clinical history: . GERD, SCREENING . 02 Diagnosis: A. Duodenal biopsies: - No significant pathologic abnormalities. . B. Gastric biopsies, antrum: - Active chronic gastritis, moderate to marked, with Helicobacter organisms identified. . (JPM:production planning supervisor; 05/09/2020) [facility] 05/09/2020 1545 Local . 02 Comment: Sections of the duodenal biopsy reveal segments of duodenal and small intestine mucosa. Where best oriented, mucosal villi show no sprue-like changes or significant inflammatory changes. . Sections of the gastric antral biopsy show moderate to marked active chronic inflammation. A properly controlled immunoperoxidase stain for Helicobacter reveals focally prominent numbers of Helicobacter organisms. There is no evidence of malignancy. . (JPM:production planning supervisor; 05/09/2020) . Special stain performed: Immunoperoxidase stain for Helicobacter on A1. . 02 Electronically signed: . Alfa Turcios MD, Pathologist NPI- [id number] . 01 Gross description: . A. The specimen is received in formalin, labeled "Ann Castro, duodenum biopsy". Received are two segments of pale melgoza soft tissue ranging in size from 0.3 to 0.5 cm in maximum dimensions. The specimen is submitted entirely in cassette A1. . B. The specimen is received in formalin, labeled "Ann Castro, antrum biopsy". Received are two segments of pale melgoza soft tissue ranging in size from 0.3 to 0.5 cm in maximum dimensions. The specimen is submitted entirely in cassette B1. ([facility]; 05/08/2020) QAC/QAC 05/08/2020 1120 Local . 02 Pathologist provided ICD-10: K29.50 . 02 CPT . 667524, 777159, Z09470 Specimen Comment: A courtesy copy of this report has been sent to [phone] Specimen Comment: [id number] Specimen Comment: Report sent to / DR GUERRA Performed at: 01 [facility] [address], [place] [id number] MD Niko Duarte MD Phone: [phone] Performed at: 02 [facility] [address] [place], [place] [id number] MD Alfa Turcios MD Phone: [phone]
== END ==
LOC: ENDOS 12:09
PROVIDERS: ATTEND Internal Medicine Gastroenterology
DX: D50.9 Iron deficiency anemia, unspecified (principal); K64.8 Other hemorrhoids; K21.00 Gastro-esophageal reflux disease with esophagitis, without bleeding; K29.50 Unspecified chronic gastritis without bleeding; K31.89 Other diseases of stomach and duodenum; J44.9 Chronic obstructive pulmonary disease, unspecified; F41.9 Anxiety disorder, unspecified; F32.9 Major depressive disorder, single episode, unspecified; I13.0 Hypertensive heart and chronic kidney disease with heart failure and stage 1 through stage 4 chronic kidney disease, or unspecified chronic kidney disease; N18.9 Chronic kidney disease, unspecified; I50.9 Heart failure, unspecified; E11.22 Type 2 diabetes mellitus with diabetic chronic kidney disease; E78.5 Hyperlipidemia, unspecified; Z87.891 Personal history of nicotine dependence; Z79.899 Other long term (current) drug therapy; Z83.3 Family history of diabetes mellitus; Z82.49 Family history of ischemic heart disease and other diseases of the circulatory system; Z83.6 Family history of other diseases of the respiratory system; Z79.84 Long term (current) use of oral hypoglycemic drugs
CPT/HCPCS: 43239; 45378; 82962; J2704

== ENCOUNTER → 2020-07-19 | Outpatient (CLI) | payer OTHER ==
[2020-06-21 15:01] VITALS: BP 152/43
[~2020-07-19] MED LIST changes: +AMOX500C PO; +CLAR-7 PO; -FLUT100D IH; +FLUT100D2 IH; -ISOS20TA2 PO; +ISOS20TA6 PO; -ISOS60TA2 PO; +ISOS60TA55 PO; -IV RINGERS,LACTATED 1000ML 1,000 ML IV SCH; -LIDOCAINE 2% PF 5 ML VIAL. ONE; +LISI10TA16 PO; +METO-239 PO; +METO10TA81 PO; +NYST15PO9 TP; +ONDA4TAB12 PO; +OXYC5CAP PO; +PROM12.58 PO; -PROPOFOL 10 MG/ML (20ML) VIAL. IV ONE
== END ==
LOC: LAB 09:03
PROVIDERS: ATTEND Ophthalmology
DX: Z01.812 Encounter for preprocedural laboratory examination (principal); Z20.828 Contact with and (suspected) exposure to other viral communicable diseases
CPT/HCPCS: U0003

== ENCOUNTER 2020-07-25 09:51 | Day surgery (SDC) | payer OTHER ==
[~2020-07-25 09:51] MED LIST changes: +CIPROFLOXACIN 0.3% OPHTH SOLUTION 5ML BOTTLE. OD ONE; +IV RINGERS,LACTATED 1000ML 1,000 ML IV SCH; +LIDOCAINE 2% JELLY 6ML IN APPLICATOR. OD ONE; -LISI10TA16 PO; -METO-239 PO; -METO10TA81 PO; -NYST15PO9 TP; -ONDA4TAB12 PO; -OXYC5CAP PO; -PROM12.58 PO; +PROPARACAINE 0.5% OPHTH SOLUTION 15ML BOTTLE. OD ONE
[2020-07-25] MEDS: PHENYLEPHRINE 10% OPHTH SOLUTION 5ML BOTTLE. OD SCH ×3 (10:46→11:01)
[2020-07-25] MEDS: CYCLOPENTOLATE 2% OPHTH SOLUTION 2ML BOTTLE. OD SCH ×3 (10:46→11:01)
[2020-07-25] MEDS ORDERED: NEO/POLYMYX/DEXAMETH OPHTH OINTMENT 3.5GM TUBE. ONE (11:08)
[2020-07-25] MEDS ORDERED: BALANCED SALT IRRIG OPHTH SOLN 15 ML BOTTLE. ONE (11:08)
[2020-07-25] MEDS ORDERED: LIDOCAINE 1%/PHENYLEPH 1.5% PF OPHTH 1 ML VIAL. ONE (11:09)
[2020-07-25] MEDS ORDERED: CHONDROITIN-SOD-HYALURONATE 0.5 ML DISP.SYRIN. ONE (11:09)
[2020-07-25] MEDS ORDERED: CHONDROIT-SOD-HYALURONATE KIT. ONE (11:09)
[2020-07-25] MEDS ORDERED: LIDOCAINE 2% JELLY 6ML IN APPLICATOR. ONE (11:09)
[2020-07-25] MEDS ORDERED: MIDAZOLAM HCL/PF 2 MG/2 ML VIAL. ONE (12:13)
[2020-07-25] MEDS ORDERED: hydrALAZINE 20 MG/ML VIAL. ONE ×2 (12:18→12:19)
[2020-07-25] MEDS ORDERED: TRYPAN BLUE 0.06% INTRAOCULAR 0.5 ML SYRINGE. IO ONE (12:32)
[2020-07-25 12:53] VITALS: BP 185/80
--- NOTE | 2020-07-25 12:54 | OP ---
DATE OF SURGERY: 07/25/2020 PREOPERATIVE DIAGNOSIS: Incipient cataract of the right eye. PROCEDURE: Phacoemulsification with posterior chamber intraocular lens implantation with posterior chamber intraocular lens and Trypan blue used to stain the capsule. DESCRIPTION OF PROCEDURE: The right eye was prepped with Betadine in the usual sterile fashion and draped. A paracentesis was performed followed by instillation of preservative-free phenylephrine admixed with balanced salt solution and lidocaine. Trypan blue was used to stain the anterior capsule under air and evacuated with viscoelastic. A temporal clear corneal incision was made and the capsulorrhexis was then adequately visualized and performed under the guidance of VisionBlue. Hydrodissection was carried out and the dense cataract was removed in a modified stop and chop fashion. Due to the mature nature of the nucleus, Viscoat was injected at both anterior and posterior to the final remnants that were evacuated. The I/A handpiece was used to remove the remainder of the cortex. Viscoelastic was injected in the anterior chamber and the temporal clear corneal incision was slightly enlarged for introduction of the C cartridge. An [place] model [id number] with a power of 30.0 diopters was then placed into the capsular bag. Balanced salt solution was used to hydrate the corneal wounds and the viscoelastic evacuated with the I/A handpiece. Once no leak was noted, Maxitrol was placed on the eye and the eye shielded and the patient was sent to the recovery room uneventfully. ZENAIDA GAUTAM MD DR: MARY BETH/estrella JOB#: [id number] / [id number]
[2020-11-05] MEDS ORDERED: LISI10TA16 PO (14:57)
[2020-11-05] MEDS ORDERED: METO10TA81 PO (14:58)
[2020-11-05] MEDS ORDERED: ONDA4TAB12 PO (15:08)
[2020-12-08] MEDS ORDERED: NYST15PO9 TP (06:40)
[2020-12-08] MEDS ORDERED: OXYC5CAP PO (06:40)
[2020-12-10] MEDS ORDERED: DICL100G54 TP (09:48)
[2020-12-16] MEDS ORDERED: METO-239 PO (13:24)
[2020-12-16] MEDS ORDERED: PROM12.58 PO (16:12)
== END 2020-07-25 13:14 | disposition home or self-care (01) ==
LOC: SURG 09:51
PROVIDERS: ATTEND Ophthalmology
DX: E11.36 Type 2 diabetes mellitus with diabetic cataract (principal); H25.89 Other age-related cataract; I13.0 Hypertensive heart and chronic kidney disease with heart failure and stage 1 through stage 4 chronic kidney disease, or unspecified chronic kidney disease; I50.9 Heart failure, unspecified; N18.9 Chronic kidney disease, unspecified; E11.22 Type 2 diabetes mellitus with diabetic chronic kidney disease; E78.00 Pure hypercholesterolemia, unspecified; I25.10 Atherosclerotic heart disease of native coronary artery without angina pectoris; J44.9 Chronic obstructive pulmonary disease, unspecified; G47.30 Sleep apnea, unspecified; E66.9 Obesity, unspecified; K21.9 Gastro-esophageal reflux disease without esophagitis; M19.90 Unspecified osteoarthritis, unspecified site; F41.9 Anxiety disorder, unspecified; F32.9 Major depressive disorder, single episode, unspecified; Z87.891 Personal history of nicotine dependence; Z79.82 Long term (current) use of aspirin; Z79.84 Long term (current) use of oral hypoglycemic drugs; Z79.899 Other long term (current) drug therapy; Z98.890 Other specified postprocedural states; Z82.49 Family history of ischemic heart disease and other diseases of the circulatory system; Z83.3 Family history of diabetes mellitus
CPT/HCPCS: 66982; 82962; C1780; J0171; J0360; J0690; J1580; J2250; J3490

== ENCOUNTER 2020-08-03 10:42 | Day surgery (SDC) | payer OTHER ==
[~2020-08-03 10:42] MED LIST changes: -CIPROFLOXACIN 0.3% OPHTH SOLUTION 5ML BOTTLE. OD ONE; +CIPROFLOXACIN 0.3% OPHTH SOLUTION 5ML BOTTLE. OS ONE; +CYCLOPENTOLATE 1% OPHTH SOLUTION 2ML BOTTLE. OS SCH; +HYDROmorphone 2 MG/ML VIAL IV PRN; +LIDOCAINE 1% PF 2 ML VIAL. ID PRN; -LIDOCAINE 2% JELLY 6ML IN APPLICATOR. OD ONE; +LIDOCAINE 2% JELLY 6ML IN APPLICATOR. OS ONE; +MORPHINE SULFATE 2 MG/ML VIAL. IV PRN; +ONDANSETRON PF 4 MG/2 ML VIAL. IV PRN; +PROCHLORPERAZINE 10 MG/2 ML VIAL. IV PRN; -PROPARACAINE 0.5% OPHTH SOLUTION 15ML BOTTLE. OD ONE; +PROPARACAINE 0.5% OPHTH SOLUTION 15ML BOTTLE. OS ONE; +fentaNYL PF VIAL 100 MCG/2 ML VIAL IV PRN
[2020-08-03] MEDS ORDERED: INSULIN LISPRO 100 UNIT/ML 3ML VIAL for OP,RR ONLY. SQ PRN (11:15)
[2020-08-03] MEDS: PHENYLEPHRINE 10% OPHTH SOLUTION 5ML BOTTLE. OS SCH ×3 (11:16→11:26)
[2020-08-03] MEDS: CYCLOPENTOLATE 2% OPHTH SOLUTION 2ML BOTTLE. OS SCH ×3 (11:18→11:26)
[2020-08-03] MEDS ORDERED: NEO/POLYMYX/DEXAMETH OPHTH OINTMENT 3.5GM TUBE. ONE (11:19)
[2020-08-03] MEDS ORDERED: CHONDROITIN-SOD-HYALURONATE 0.5 ML DISP.SYRIN. ONE (11:19)
[2020-08-03] MEDS ORDERED: CHONDROIT-SOD-HYALURONATE KIT. ONE (11:19)
[2020-08-03] MEDS ORDERED: BALANCED SALT IRRIG OPHTH SOLN 15 ML BOTTLE. ONE (11:24)
[2020-08-03] MEDS ORDERED: LIDOCAINE 1%/PHENYLEPH 1.5% PF OPHTH 1 ML VIAL. IO ONE (11:30)
[2020-08-03] MEDS ORDERED: MIDAZOLAM HCL/PF 2 MG/2 ML VIAL. ONE (12:38)
[2020-08-03] MEDS ORDERED: hydrALAZINE 20 MG/ML VIAL. ONE (12:48)
--- NOTE | 2020-08-03 13:22 | OP ---
DATE OF SURGERY: 08/03/2020 PREOPERATIVE DIAGNOSIS: Cataract of the left eye. PROCEDURE: Phacoemulsification with posterior chamber intraocular lens implantation of the left eye. SURGEON: Zenaida Da Silva MD ANESTHESIA: Topical with monitored anesthesia care. DESCRIPTION OF PROCEDURE: The left eye was prepped with Betadine in the usual sterile fashion and draped. A paracentesis was performed followed by instillation of preservative-free lidocaine admixed with phenylephrine and balanced salt solution. A temporal clear corneal incision was made and viscoelastic injected followed by a capsulorrhexis. Hydrodissection resulted in prolapse of the nucleus, which was sandwiched with Viscoat and evacuated with the phacoemulsification handpiece. The I/A handpiece was used to remove the cortex and viscoelastic was then reinstilled in the anterior chamber and the temporal clear corneal incision was enlarged superiorly. This was done due to the lens, which was an [id number] with a power of 30.0 diopters and required a larger cartridge for injection. This was done uneventfully and copious balanced salt solution was used to hydrate the corneal wounds and the viscoelastic evacuated with the I/A handpiece. Once no leak was noted, Maxitrol was placed on the eye and the eye shielded and the patient was sent to the recovery room uneventfully. ZENAIDA DA SILVA MD DR: MARY BETH/estrella JOB#: [id number] / [id number]
[2020-08-03 13:25] VITALS: BP 194/76
[2020-11-05] MEDS ORDERED: LISI10TA16 PO (14:57)
[2020-11-05] MEDS ORDERED: METO10TA81 PO (14:58)
[2020-11-05] MEDS ORDERED: ONDA4TAB12 PO (15:08)
[2020-12-08] MEDS ORDERED: NYST15PO9 TP (06:40)
[2020-12-08] MEDS ORDERED: OXYC5CAP PO (06:40)
[2020-12-10] MEDS ORDERED: DICL100G54 TP (09:48)
[2020-12-16] MEDS ORDERED: METO-239 PO (13:24)
[2020-12-16] MEDS ORDERED: PROM12.58 PO (16:12)
== END 2020-08-03 13:45 | disposition home or self-care (01) ==
LOC: SURG 10:42
PROVIDERS: ATTEND Ophthalmology
DX: E11.36 Type 2 diabetes mellitus with diabetic cataract (principal); H25.89 Other age-related cataract; E11.42 Type 2 diabetes mellitus with diabetic polyneuropathy; I13.0 Hypertensive heart and chronic kidney disease with heart failure and stage 1 through stage 4 chronic kidney disease, or unspecified chronic kidney disease; N18.9 Chronic kidney disease, unspecified; I50.9 Heart failure, unspecified; E11.22 Type 2 diabetes mellitus with diabetic chronic kidney disease; I25.10 Atherosclerotic heart disease of native coronary artery without angina pectoris; E78.00 Pure hypercholesterolemia, unspecified; J44.9 Chronic obstructive pulmonary disease, unspecified; G47.30 Sleep apnea, unspecified; K21.9 Gastro-esophageal reflux disease without esophagitis; E66.9 Obesity, unspecified; M19.90 Unspecified osteoarthritis, unspecified site; F41.9 Anxiety disorder, unspecified; F32.9 Major depressive disorder, single episode, unspecified; Z87.891 Personal history of nicotine dependence; Z79.82 Long term (current) use of aspirin; Z79.84 Long term (current) use of oral hypoglycemic drugs; Z98.890 Other specified postprocedural states; Z82.49 Family history of ischemic heart disease and other diseases of the circulatory system; Z83.3 Family history of diabetes mellitus; Z72.89 Other problems related to lifestyle
CPT/HCPCS: 66984; 82962; A4461; C1780; J0171; J0360; J0690; J1580; J2250; J3490

== ENCOUNTER → 2020-10-08 | Outpatient (CLI) | payer OTHER ==
[~2020-10-08] MED LIST changes: -CIPROFLOXACIN 0.3% OPHTH SOLUTION 5ML BOTTLE. OS ONE; -CYCLOPENTOLATE 1% OPHTH SOLUTION 2ML BOTTLE. OS SCH; -HYDROmorphone 2 MG/ML VIAL IV PRN; -IV RINGERS,LACTATED 1000ML 1,000 ML IV SCH; -LIDOCAINE 1% PF 2 ML VIAL. ID PRN; -LIDOCAINE 2% JELLY 6ML IN APPLICATOR. OS ONE; -MORPHINE SULFATE 2 MG/ML VIAL. IV PRN; -ONDANSETRON PF 4 MG/2 ML VIAL. IV PRN; -PROCHLORPERAZINE 10 MG/2 ML VIAL. IV PRN; -PROPARACAINE 0.5% OPHTH SOLUTION 15ML BOTTLE. OS ONE; -fentaNYL PF VIAL 100 MCG/2 ML VIAL IV PRN
--- NOTE | 2020-10-08 16:40 | RAD ---
History: Nausea and vomiting Procedure: The patient ate a standard meal containing 2.1 mCi Tc-99m sulfur colloid. Scintigraphic images of the abdomen were obtained. Counts were obtained. Findings: Retention percentages are as follows: 1 Hr: 25 2 Hr:21 3 Hr:5 4 Hr:5 Time to half emptying for solids is estimated at 53 minutes. Normal Retention Percentage Range is as Follows: 1 Hr: 35-91% 2 Hr: 2.7-60% 3 Hr: 0.5-28% 4 Hr: 0-10% Impression: No evidence of delayed gastric emptying. Electronically signed by: Orestes Ram MD (10/08/2020 4:37 PM) [id number]
== END ==
LOC: NM 09:49
PROVIDERS: ATTEND Internal Medicine Gastroenterology
DX: K21.9 Gastro-esophageal reflux disease without esophagitis (principal)
CPT/HCPCS: 78264; A9541

== ENCOUNTER 2021-01-02 21:38 | Emergency (ER) | payer OTHER ==
[~2021-01-02] VITALS: Ht 170.2 cm; Wt 152.3 kg
[~2021-01-02 21:38] MED LIST changes: +LISI10TA16 PO; +METO-239 PO; +METO10TA81 PO; +NYST15PO9 TP; +ONDA4TAB12 PO; +OXYC5CAP PO; +PROM12.58 PO
--- NOTE | 2021-01-02 22:15 | PHYS DOC ---
Past Medical History Past Medical History: Asthma, CAD, CHF, COPD, Diabetes-Type II, High Chol esterol, Hypertension, [place] Additional Past Medical Histor: neuropathy, morbid obesity, RLS, insomnia, Past Surgical History: Other Additional Past Surgical Histo: STENTS X 6, SCREWS IN LEFT ANKLE Smoking Status: Former Smoker Alcohol Use: Rarely Drug Use: None General Adult EDM: Chief Complaint: HEARTBURN/GI DISTRESS HPI: HPI: Patient is a 60-year-old female who presents via EMS for GERD. Reports this is a chronic problem, reports it has been slowly worsening for past 4 months. She has extensive past medical history most concerning for known CAD, was recently seen and evaluated our facility approximately 3 weeks ago and had heart catheterization which found extensive stenting of the LAD with the most significant area of restenosis being a 35% lesion in the mid vessel. Several days later, she presented to [facility] and "admitted for a few days". Per her report, it sounds as though GI was consulted and she had an EGD performed, she was advised to take several GERD-related medications and was scheduled for outpatient GI surgery which she thinks is a balloon dilation of her distal esophagus. Reports since discharge, she has had dysphagia. She has been eating soup and other liquids predominantly and having to crush up all of her pills due to ongoing dysphagia and constant foreign body sensation in throat. She reports "twinges" of epigastric pain, unsure if this is related to her GERD vs other process. No fever, falls, dizziness, ripping and/or tearing sensation in chest, AP, dysuria, changes in motor/sensory/neuro function Review of Systems: Review of Systems: Fourteen body systems of review of systems have been reviewed. See HPI for per tinent positives and negative responses, other brasher all other systems are negative, non-pertinent or non-contributory Heart Score: C/O Chest Pain: No HEART Score for Chest Pain: HEART Score for Chest Pain Response (Comments) Value History Moderately Suspicious 1 ECG Nonspecific Repolarizatio 1 Age >45 - < 65 1 Risk Factors >3 Risk Factors or Hx CAD 2 Troponin < Normal Limit 0 Total 5 Risk Factors: Risk Factors: DM, Current or recent (<one month) smoker, HTN, HLP, family history of CAD, obesity. Risk Scores: Score 0 - 3: 2.5% MACE over next 6 weeks - Discharge Home Score 4 - 6: 20.3% MACE over next 6 weeks - Admit for Clinical Observation Score 7 - 10: 72.7% MACE over next 6 weeks - Early Invasive Strategies Allergies: Allergies: Allergies Coded Allergies Type Severity Reaction Last Updated Verified No Known Drug Allergies 08/03/20 No Physical Exam: PE: Constitutional: Well developed, well nourished, no acute distress, non-toxic appearance. HENT: Normocephalic, atraumatic, bilateral external ears normal, oropharynx moist, no oral exudates, nose normal. Eyes: PERRLA, EOMI, conjunctiva normal, no discharge. Neck: Normal range of motion, no tenderness, supple, no stridor. Cardiovascular: Heart rate regular, sinus rhythm, no murmurs rubs or gallops Lungs & Thorax: Bilateral breath sounds clear to auscultation Abdomen: Bowel sounds normal, soft and protuberant, mild epigastric TTP, no masses, no pulsatile masses. Nonsurgical abdomen, no peritoneal signs Skin: Warm, dry, no erythema, no rash. Back: No tenderness, no CVA tenderness. Extremities: No tenderness, no cyanosis, no clubbing, ROM intact, no edema. Neurologic: Alert and oriented X 3, grossly normal motor & sensory function, no focal deficits noted. Psychologic: Anxious affect and mood Current Patient Data: Labs: Laboratory Tests Test 01/02/21 22:20 White Blood Count 5.5 x10^3/uL Red Blood Count 4.60 x10^6/uL Hemoglobin 11.6 g/dL Hematocrit 35.6 % Mean Corpuscular Volume 77 fL Mean Corpuscular Hemoglobin 25 pg Mean Corpuscular Hemoglobin Concent 33 g/dL Red Cell Distribution Width 16.5 % Platelet Count 265 x10^3/uL Neutrophils (%) (Auto) 57 % Lymphocytes (%) (Auto) 28 % Monocytes (%) (Auto) 10 % Eosinophils (%) (Auto) 3 % Basophils (%) (Auto) 1 % Neutrophils # (Auto) 3.2 x10^3/uL Lymphocytes # (Auto) 1.6 x10^3/uL Monocytes # (Auto) 0.6 x10^3/uL Eosinophils # (Auto) 0.2 x10^3/uL Basophils # (Auto) 0.1 x10^3/uL Sodium Level 147 mmol/L Potassium Level 4.1 mmol/L Chloride Level 110 mmol/L Carbon Dioxide Level 31 mmol/L Anion Gap 6 Blood Urea Nitrogen 7 mg/dL Creatinine 1.5 mg/dL Estimated GFR (Cockcroft-Gault) 42.6 BUN/Creatinine Ratio 5 Glucose Level 83 mg/dL Calcium Level 8.7 mg/dL Total Bilirubin 0.3 mg/dL Aspartate Amino Transf (AST/SGOT) 18 U/L Alanine Aminotransferase (ALT/SGPT) 16 U/L Alkaline Phosphatase 82 U/L Troponin I Quantitative < 0.017 ng/mL MY-Jxz-G-Type Natriuretic Peptide 661 pg/mL Total Protein 6.0 g/dL Albumin 2.8 g/dL Albumin/Globulin Ratio 0.9 Current Medications Medications (Trade) Dose Ordered Sig/Lui Route PRN Reason Start Time Stop Time Status Last Admin Dose Admin Aspirin (Aspirin Chewable) 162 mg 1X ONCE PO 01/02/21 22:30 01/02/21 22:31 DC 01/02/21 22:28 Nitroglycerin (Nitrostat) 0.4 mg PRN Q5MIN PRN SL CP RATING > 1/10 01/02/21 22:15 01/03/21 01:23 DC 01/02/21 22:44 Ondansetron HCl (Zofran) 4 mg 1X ONCE IVP 01/02/21 22:30 01/02/21 22:31 DC Multi-Ingredient Mouthwash/Gargle (Gi Cocktail) 20 ml 1X ONCE SWSW 01/02/21 22:30 01/02/21 22:31 DC 01/02/21 23:10 Iohexol (Omnipaque 350 Mg/ml) 100 ml 1X ONCE IV 01/02/21 23:00 01/02/21 23:01 Cancel Info (CONTRAST GIVEN -- Rx MONITORING) 1 each PRN DAILY PRN MC SEE COMMENTS 01/02/21 22:30 01/04/21 22:29 Cancel Hydralazine HCl (Apresoline) 25 mg 1X ONCE PO 01/03/21 01:00 01/03/21 01:01 DC 01/03/21 00:46 Vital Signs: Vital Signs Date Time Temp Pulse Resp B/P (MAP) Pulse Ox O2 Delivery O2 Flow Rate FiO2 01/02/21 21:38 98.0 88 18 180/93 (122) 97 Room Air 98.0 Vital Signs Date Time Temp Pulse Resp B/P (MAP) Pulse Ox O2 Delivery O2 Flow Rate FiO2 01/03/21 00:59 82 19 184/66 (105) 97 Room Air 01/02/21 21:38 98.0 98.0 EKG: EKG: EKG ordered and interpreted by myself at 2159 hrs. as sinus rhythm at 87 bpm, prolonged QTC at 501 otherwise unremarkable intervals, left axis deviation, no STEMI Prior EKG from 12/07/2020 was used to compare to today's EKG, no gross changes noted Repeat EKG ordered and interpreted by myself at 2242 hrs. as sinus rhythm at 87 bpm, prolonged QRS at 128, prolonged QTC at 494 otherwise unremarkable intervals, left axis deviation, no STEMI Radiology/Procedures: Radiology/Procedures: Exam: Chest one view INDICATION: Chest pain TECHNIQUE: Frontal view of the chest Comparisons: 12/07/2020 FINDINGS: Heart is mildly enlarged. Pulmonary vessels are within normal limits. The lung and pleural spaces are clear. IMPRESSION: No acute pulmonary process. Electronically signed by: Audrey Castellanos MD (01/02/2021 10:43 PM) [facility] Course & Med Decision Making: Course & Med Decision Making Hypertensive otherwise VSS. HPI concerning for untreated GERD vs other GI illness but cannot exclude cardiac etiology in high risk individual. PE and ER workup non-concerning for emergent and/or surgical issues Patient responded with ER intervention, x3 SL Nitro and GI cocktail resolved all symptoms. I disclosed nitro helps with cardiac pain but also relieves esophageal spasms etc I reviewed ER visit with patient and sister. There is concern for ongoing symptoms if discharged home, patient requesting transfer back to [facility] as she states "I don't think I can wait until January for my procedure". They were full, no capacity I discussed this with them and so, I recommended hospital admission to our facility for further cardiac observation and GI consultation with treatment as indicated but did disclose it might take a while to receive records and that surgery might not be indicated emergently. Patient declined Patient with full capacity and asymptomatic after ER intervention requesting discharge home. She has good access to PCP, she saw her earlier today and reported symptoms, was advised to continue with GI recommendations and follow-up for "surgery" in January as previously scheduled I disclosed this might be an acute presentation of more concerning pathology and so, strict return precautions were discussed. All questions and concerns addressed prior to ER departure Vla Disclaimer: Val Disclaimer: This electronic medical record was generated, in whole or in part, using a voice recognition dictation system. Departure Departure Impression: Primary Impression: GERD (gastroesophageal reflux disease) Additional Impression: Atypical chest pain Disposition: HOME / SELF CARE / HOMELESS Condition: IMPROVED Referrals: ALBA GUERRA MD (PCP) Patient Instructions: Diet for Gastroesophageal Reflux Disease, Adult, Gastroesophageal Reflux Disease, Adult Additional Instructions: As discussed prior to your departure, you were hypertensive otherwise your vital signs were unremarkable. Your physical exam and subsequent diagnostic work-up was nonconcerning for any emergent or surgical issues. We reviewed your case at length. I discussed that I contacted [facility] in regards to potential transfer to their facility for GI consultation regarding your ongoing symptomatic GERD and potential need for unknown surgery but as disclosed, their facility was at full capacity. As such, given your symptoms and numerous comorbidities I recommended hospital admission to our facility but you declined as your symptoms completely improved with intervention provided in our ER. I did disclose this might be an acute presentation of more concerning pathology from another comorbid conditions such as your heart and further discussed need for admission but you deferred. As such, it is pertinent that you contact your primary care physician and GI physician in outpatient setting first thing this morning once their office is open to review ER visit and need for close outpatient follow-up. If any concerning signs or symptoms present prior to outpatient follow-up please do not hesitate to come back for repeat evaluation. It was a pleasure to take care of you and I wish you the best going forward DAVE COBURN DO Jan 02, 2021 22:15
[2021-01-02 22:27] LABS: BASO # 0.1 x10^3/uL (0.0-0.2); BASO % 1 % (0-3); EOS # 0.2 x10^3/uL (0.0-0.7); EOS % 3 % (0-3); HEMATOCRIT 35.6 % (36.0-47.0); HEMOGLOBIN 11.6 g/dL (12.0-15.5); LYMPH # 1.6 x10^3/uL (1.0-4.8); LYMPH % 28 % (24-48); MEAN CORPUSCULAR HEMOGLOBIN 25 pg (25-35); MEAN CORPUSCULAR HGB CONC 33 g/dL (31-37); MEAN CORPUSCULAR VOLUME 77 fL (79-100); MONO # 0.6 x10^3/uL (0.0-1.1); MONO % 10 % (0-9); NEUT # 3.2 x10^3/uL (1.8-7.7); NEUT % 57 % (31-73); PLATELET COUNT 265 x10^3/uL (140-400); RED CELL DISTRIBUTION WIDTH 16.5 % (11.5-14.5); WHITE BLOOD COUNT 5.5 x10^3/uL (4.0-11.0)
[2021-01-02] MEDS: NITROGLYCERIN SUBLINGUAL 0.4 MG BOTTLE OF 25. SL PRN ×3 (22:28→22:44)
[2021-01-02] MEDS ORDERED: LIDO:MAALOX 1:1 20 ML SINGLE DOSE. SWSW ONE (22:30)
[2021-01-02] MEDS ORDERED: CONTRAST GIVEN. MC PRN (22:30)
[2021-01-02] MEDS ORDERED: ASPIRIN CHEWABLE 81 MG TABLET. PO ONE (22:30)
[2021-01-02] MEDS ORDERED: ONDANSETRON PF 4 MG/2 ML VIAL. IVP ONE (22:30)
--- NOTE | 2021-01-02 22:30 | EKG ---
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
[2021-01-02 22:35] LABS: CALCIUM 8.7 mg/dL (8.5-10.1); CREATININE 1.5 mg/dL (0.6-1.0); GFR 42.6; POTASSIUM 4.1 mmol/L (3.5-5.1)
[2021-01-02 22:41] LABS: ALBUMIN 2.8 g/dL (3.4-5.0); ALBUMIN/GLOBULIN RATIO 0.9 (1.0-1.7); TOTAL BILIRUBIN 0.3 mg/dL (0.2-1.0)
--- NOTE | 2021-01-02 22:45 | RAD ---
Exam: Chest one view INDICATION: Chest pain TECHNIQUE: Frontal view of the chest Comparisons: 12/07/2020 FINDINGS: Heart is mildly enlarged. Pulmonary vessels are within normal limits. The lung and pleural spaces are clear. IMPRESSION: No acute pulmonary process. Electronically signed by: Audrey Castellanos MD (01/02/2021 10:43 PM) JOSLYN
[2021-01-02] MEDS ORDERED: IOHEXOL 350 MG/ML 100 ML VIAL. IV ONE (23:00)
[2021-01-03 00:59] VITALS: BP 184/66
[2021-01-03] MEDS ORDERED: hydrALAZINE 25 MG TABLET PO ONE (01:00)
--- NOTE | 2021-01-03 04:23 | EKG ---
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
== END 2021-01-03 01:10 | disposition home or self-care (01) ==
LOC: ER 21:38
DX: K21.9 Gastro-esophageal reflux disease without esophagitis (principal); R07.89 Other chest pain; J44.9 Chronic obstructive pulmonary disease, unspecified; E78.00 Pure hypercholesterolemia, unspecified; I11.0 Hypertensive heart disease with heart failure; I50.9 Heart failure, unspecified; I25.10 Atherosclerotic heart disease of native coronary artery without angina pectoris; I25.2 Old myocardial infarction; Z87.891 Personal history of nicotine dependence; Z95.5 Presence of coronary angioplasty implant and graft; E66.01 Morbid (severe) obesity due to excess calories; Z68.43 Body mass index [BMI] 50.0-59.9, adult
CPT/HCPCS: 36415; 71045; 80053; 83880; 84484; 85025; 93005; 99285-25

== ENCOUNTER 2021-01-04 10:55 | Inpatient (IN) | payer OTHER ==
[~2021-01-04] VITALS: Ht 172.7 cm; Wt 143.8 kg
[2021-01-04] VITALS (10 sets, daily range): BP systolic 144–171; BP diastolic 79–128
[2021-01-04] MEDS ORDERED: EPINEPHrine SYRINGE 1 MG/10 ML SYRINGE ONE (11:00)
[2021-01-04] MEDS ORDERED: AMIODARONE 150 MG/3 ML VIAL ONE (11:00)
[2021-01-04] MEDS ORDERED: AMIODARONE 450 MG in IV DEXTROSE 5% 250 ML IV ONE (11:15)
[2021-01-04 11:23] LABS: BASE EXCESS COOX -5 mmol/L (-3-3); HCO3 COOX 24 mmol/L (21-28); METHEMOGLOBIN 0.5 % (0.0-1.9); OXYHEMOGLOBIN 98.2 %; PCO2 COOX 62 mmHg (35-46); PO2 COOX 191 mmHg (65-108); SAT O2 COOX 99 % (92-99)
[2021-01-04] MEDS ORDERED: MIDAZOLAM 100mg/100ml NS BAG 100 ML IV ONE (11:30)
[2021-01-04 11:32] LABS: BASO # 0.1 x10^3/uL (0.0-0.2); BASO % 0 % (0-3); EOS % 0 % (0-3); HEMATOCRIT 38.6 % (36.0-47.0); HEMOGLOBIN 12.1 g/dL (12.0-15.5); LYMPH # 3.1 x10^3/uL (1.0-4.8); LYMPH % 20 % (24-48); MEAN CORPUSCULAR HEMOGLOBIN 25 pg (25-35); MEAN CORPUSCULAR HGB CONC 31 g/dL (31-37); MEAN CORPUSCULAR VOLUME 79 fL (79-100); MONO # 1.1 x10^3/uL (0.0-1.1); MONO % 7 % (0-9); NEUT # 11.5 x10^3/uL (1.8-7.7); NEUT % 73 % (31-73); PLATELET COUNT 349 x10^3/uL (140-400); RED BLOOD COUNT 4.89 x10^6/uL (3.50-5.40); RED CELL DISTRIBUTION WIDTH 16.9 % (11.5-14.5); WHITE BLOOD COUNT 15.8 x10^3/uL (4.0-11.0)
--- NOTE | 2021-01-04 11:32 | PHYS DOC ---
Past Medical History Past Medical History: Asthma, CAD, CHF, COPD, Diabetes-Type II, High Chol esterol, Hypertension, [place] Additional Past Medical Histor: neuropathy, morbid obesity, RLS, insomnia, Past Surgical History: Other Additional Past Surgical Histo: STENTS X 6, SCREWS IN LEFT ANKLE Smoking Status: Former Smoker Alcohol Use: None Drug Use: None General Adult EDM: Chief Complaint: AMS HPI: HPI: Patient is a 60 year old female who was brought here by EMS from home after she was found unresponsive in her bed by her family. Patient was last known normal was 9 AM yesterday. Patient's son came out to her house yesterday to take out the trash at 9 AM, patient was normal then. Today they tried to call her but could not get a hold of her so they show up to her house, found her unresponsive in her bed. Per family, patient had a CPAP machine on but the mass slid off her face, there was lot of mucus and vomitus material around her face and on her neck area. Patient was responsive to painful stimuli but was very confused, did not follow command. EMS were called, they found her in respiratory distress, GCS of 7-8, they bagged her and brought her here. Upon arrival to room, patient was unresponsive to verbal, severe respiratory distress, need emergent intubation. Her family stated that patient was seen here 2 days ago for epigastric abdominal pain. It was recommended that she need to stay in the hospital however patient did not want to stay in the hospital so she went home. Patient was supposed to see her surgeon at [facility] for stomach problem. Patient had a history of CHF, diabetic, hypertension, coronary artery disease. Review of Systems: Review of Systems: Unable to obtain due to patient condition Heart Score: C/O Chest Pain: N/A HEART Score for Chest Pain: HEART Score for Chest Pain Response (Comments) Value History Moderately Suspicious 1 ECG Nonspecific Repolarizatio 1 Age >45 - < 65 1 Risk Factors >3 Risk Factors or Hx CAD 2 Troponin >3 x Normal Limit 2 Total 7 Risk Factors: Risk Factors: DM, Current or recent (<one month) smoker, HTN, HLP, family history of CAD, obesity. Risk Scores: Score 0 - 3: 2.5% MACE over next 6 weeks - Discharge Home Score 4 - 6: 20.3% MACE over next 6 weeks - Admit for Clinical Observation Score 7 - 10: 72.7% MACE over next 6 weeks - Early Invasive Strategies Current Medications: Current Medications Medications (Trade) Dose Ordered Sig/Lui Start Time Stop Time Status Last Admin Dose Admin Amiodarone HCl 450 mg/Dextrose 259 ml @ 33 mls/hr 1X ONCE 01/04/21 11:15 01/04/21 19:05 Midazolam HCl 100 ml @ 1 mls/hr 1X ONCE 01/04/21 11:30 01/08/21 15:29 UNV Allergies: Allergies: Allergies Coded Allergies Type Severity Reaction Last Updated Verified No Known Drug Allergies 08/03/20 No Physical Exam: PE: Constitutional: Well developed, well nourished,severe distress, toxic appearance, not responsive to verbal or painful stimuli. morbidly obese. HENT: Normocephalic, atraumatic, bilateral external ears normal, full of whitish material in oropharynx area, nostrils with whitish drainage. Eyes: PERRLA, conjunctiva normal, no discharge. [] Neck: Normal range of motion, trachea midline, supple, no stridor. [] Cardiovascular: sinus tachycardia, no murmur [] Lungs & Thorax: In respiratory distress, decreased air movement bilaterally, diffused crackles Abdomen: Bowel sounds normal, soft, no tenderness, no masses, no pulsatile masses. [] Skin: Warm, dry, no erythema, no rash. [] Back: atraumatic Extremities: atraumatic, no edema. [] Neurologic patiennt was unresponsive verbal command, obtunded. Psychologic not able to evaluate due to condition. Current Patient Data: Labs: Laboratory Tests Test 01/04/21 11:19 O2 Saturation 99 % (92-99) Arterial Blood pH 7.20 (7.35-7.45) *L Arterial Blood pCO2 at Patient Temp 62 mmHg (35-46) *H Arterial Blood pO2 at Patient Temp 191 mmHg (65-108) H Arterial Blood HCO3 24 mmol/L (21-28) Arterial Blood Base Excess -5 mmol/L (-3-3) L Oxyhemoglobin 98.2 % Methemoglobin 0.5 % (0.0-1.9) Carbon Monoxide, Quantitative 0.1 % (0.0-1.9) FiO2 100 Vital Signs: Vital Signs Date Time Temp Pulse Resp B/P (MAP) Pulse Ox O2 Delivery O2 Flow Rate FiO2 01/04/21 11:20 99 Ventilator EKG: EKG: EKG was done at 1115, heart rate of 123 beats per minutes, sinus tachycardia, wide QRS complex. Radiology/Procedures: Radiology/Procedures: Intubation: Indication: Respiratory failure Consent: Unable to give consent due to emergent nature. Medications Used: see nursing note Procedure: The patient was placed in the appropriate position. Intubation was performed [CORD VISUALIZATION METHOD] [ET TUBE SIZE] endotracheal tube. [ET SECURE]. Initial confirmation of placement included bilateral breath sounds, tube fogging, adequate chest rise, adequate pulse oximetry reading. A chest x- ray to verify correct placement of the tube showed appropriate tube position. Complications: PATIENT WAS CODED DURING INTUBATION. [facility] [address] [id number] [place] [address] IMAGING REPORT Signed PATIENT: MARIKA SMITH ACCOUNT: [id number] : 1960 LOCATION: ER AGE: 60 SEX: F EXAM STATUS: REG ER ORD. PHYSICIAN: JESSICA WATERMAN APRN REASON: post intubation PROCEDURE: PORTABLE CHEST 1V AP chest. HISTORY: Post intubation AP view was taken of the chest. There is an endotracheal tube at the aortic arch in good position. NG tube extends into the stomach. Patient's taken a poor inspiration. Heart is mildly prominent. There is no pleural effusion. There is mild atelectasis or infiltrate in the right upper lobe. No other definite infiltrates are noted. IMPRESSION: 1. Endotracheal tube in good position. 2. Mild right upper lobe atelectasis or infiltrate which is new compared to the prior study. Electronically signed by: Gregg Amaya MD (01/04/2021 11:36 AM) [id number] DICTATED and SIGNED BY: GREGG AMAYA MD DATE: 01/04/21 [id number] [facility] [address] [place] [address] IMAGING REPORT Signed PATIENT: MARIKA SMITH ACCOUNT: [id number] : 1960 LOCATION: ER AGE: 60 SEX: F EXAM STATUS: REG ER ORD. PHYSICIAN: RENATO TRENT DO REASON: UNRESPONSIVE [phone] PROCEDURE: CT CODE STROKE HEAD WO CT STROKE HEAD W/O History: Reason: UNRESPONSIVE / Spl. Instructions: / History: Comparison: December 07, 2020 Technique: Noncontrast CT imaging was performed of the head. Exposure: One or more of the following individualized dose reduction techniques were utilized for this examination: 1. Automated exposure control 2. Adjustment of the mA and/or kV according to patient size 3. Use of iterative reconstruction technique. Findings: No intracranial hemorrhage. No mass effect. No hydrocephalus. Moderate foci of decreased attenuation within the hemispheric white matter, most often due to chronic microvascular ischemia, unchanged. Intracranial atheromatous calcifications. Bilateral proptosis due to abundant retro-orbital fat, unchanged. Secretions within the right maxillary sinus with mucosal thickening. Mild mucosal thickening within the ethmoid and sphenoid sinuses. Secretions within the nasal passages and posterior nasopharynx likely related to oral intubation. No acute calvarial fracture. Impression: 1. No acute intracranial abnormality. FOR INTERNAL CODING PURPOSES Critical result: Findings discussed with Dr. Trent at 01/04/2021 12:00 PM. RESULT CODE: (C) Electronically signed by: Delano Perkins DO (01/04/2021 12:03 PM) [id number] DICTATED and SIGNED BY: DELANO PERKINS DO DATE: 01/04/21 [id number] CENTRAL LINE PLACEMENT Indication: Vascular access Consent: The patient provided consent for this procedure. Procedure: The patient was positioned appropriately and the skin over the [RIGHT/LEFT] [VEIN] was prepped and draped in a sterile fashion. Local anes thesia was used. Ultrasound guidance utilized. A large bore needle was used to identify the vein. A guide wire was then inserted into the vein through the needle. A triple lumen catheter was then inserted into the vessel over the guide wire using the Seldinger technique. All ports showed good, free flowing blood return and were flushed with saline solution. The catheter was then securely fastened to the skin with sutures and covered with a sterile dressing. A post procedure X-ray was ordered. The patient tolerated the procedure well. Complications: none. [] [facility] [address] [place] [address] IMAGING REPORT Signed PATIENT: MARIKA SMITH ACCOUNT: [id number] : 1960 LOCATION: [address] [place] [address] AGE: 60 SEX: F EXAM STATUS: ADM IN ORD. PHYSICIAN: RENATO TRENT DO REASON: LEFT IJ CVL PLACEMENT PROCEDURE: CHEST AP ONLY EXAM: CHEST 1 VIEW History: Internal jugular line COMPARISON: 01/04/2021 TECHNIQUE: Single portable radiograph of the chest FINDINGS: Moderate cardiomegaly. ET tube, feeding tube is unchanged. Left Internal jugular line identified with the tip projecting in the distal SVC region. Mild prominent interstitial lung markings likely mild congestive changes or interstitial infiltrates. IMPRESSION: Left Internal jugular line identified with tip projecting in the distal SVC region.Mild prominent interstitial lung markings likely mild congestive changes or interstitial infiltrates Electronically signed by: Osmel Goddard MD (01/04/2021 1:10 PM) [id number] DICTATED and SIGNED BY: OSMEL GODDARD MD DATE: 01/04/21 [id number] Course & Med Decision Making: Course & Med Decision Making Pertinent Labs and Imaging studies reviewed. (See chart for details) Patient is a 60-year-old female who was brought here by EMS from home due to altered mental status, and respiratory failure. Patient appeared to aspirate. Upon arrival to ER patient was in respiratory distress, unresponsive to verbal command, patient was urgently intubated. During intubation process patient became bradycardic and CODE BLUE was initiated. There was difficult intubation because there was a lot of mucus and gastric content in her oral airway area. Patient was resuscitated by ACLS protocol. Patient was found to be in V. fib on the monitor, patient was shocked once. ROSC was achieved. Her heart rate was about 155 beats per minutes sinus tachycardia with wide QRS complex.. Patient was given amiodarone IV bolus and drip. Patient was taken emergently to CT scan for CT scan her head, CT head was negative for intracranial hemorrhage mass. When patient came back from CT scan her blood pressure was low, she was tachycardic, with elevated white blood cell count and elevated lactic acid consistent with severe sepsis. Patient was given IV fluid and IV Zosyn. Central venous catheter was placed on left IJ with anticipation of starting pressor. However patient blood pressure was elevated after central line placement. Patient last known normal was at 9 a.m. yesterday. Patient was found to be in renal failure as well with elevated potassium level. Patient was given insulin and sodium bicarb in ED. patient will be admitted to hospital for further evaluation and treatment. Patient's family was counseled. Discussed with Dr. Cabral hospitalist service, agrees to admit the patient. Due to a high probability of clinically significant, life-threatening deterioration, the patient required my highest level of preparedness to intervene emergently and I personally spent this critical care time directly and personally managing the patient. This critical care time included obtaining the history; examining the patient; pulse oximetry; real-time ordering and review of studies; arranging urgent treatment with development of a management plan; evaluation of patient's response to treatment; frequent reassessment; and, discussions with other providers. This critical care time was performed to assess and manage the high probability of imminent, life-threatening deterioration that could result in multi-organ failure. It was not inclusive of separately billable procedures. Please see the Course and Medical Decision Making section and the rest of the note for further information on patient as sessment and treatment. Critical care time was [60] minutes which includes time at bedside, spent in discussion of patient's care with specialist and/or family members, with interpretation of laboratory and/or radiological studies and is exclusive of procedures. Dragon Disclaimer: Dragon Disclaimer: This electronic medical record was generated, in whole or in part, using a voice recognition dictation system. Departure Departure Impression: Primary Impression: Respiratory failure Additional Impressions: Acute renal failure Hyperkalemia Aspiration pneumonia Altered mental status Sepsis Disposition: ADMITTED INPATIENT Admitting Physician: PARAMJIT (Dr. Cabral) Condition: CRITICAL Referrals: ALBA GUERRA MD (PCP) RENATO TRENT DO Jan 04, 2021 11:32
--- NOTE | 2021-01-04 11:38 | RAD ---
AP chest. HISTORY: Post intubation AP view was taken of the chest. There is an endotracheal tube at the aortic arch in good position. NG tube extends into the stomach. Patient's taken a poor inspiration. Heart is mildly prominent. There is no pleural effusion. There is mild atelectasis or infiltrate in the right upper lobe. No other def inite infiltrates are noted. IMPRESSION: 1. Endotracheal tube in good position. 2. Mild right upper lobe atelectasis or infiltrate which is new compared to the prior study. Electronically signed by: Gregg Amaya MD (01/04/2021 11:36 AM) [id number]
[2021-01-04 11:44] LABS: CALCIUM 9.5 mg/dL (8.5-10.1); CREATININE 2.4 mg/dL (0.6-1.0); GFR 24.8; POTASSIUM 5.9 mmol/L (3.5-5.1)
[2021-01-04] MEDS ORDERED: IV NORMAL SALINE 1000ML BAG 1,000 ML IV ONE (11:45)
[2021-01-04 11:50] LABS: ALBUMIN 3.1 g/dL (3.4-5.0); ALBUMIN/GLOBULIN RATIO 0.9 (1.0-1.7); MAGNESIUM 2.3 mg/dL (1.8-2.4); TOTAL BILIRUBIN 0.3 mg/dL (0.2-1.0); TOTAL PROTEIN 6.7 g/dL (6.4-8.2)
[2021-01-04] MEDS ORDERED: SODIUM BICARB ADULT 8.4% 50 MEQ/50 ML DISP.SYRIN. IV ONE (12:00)
[2021-01-04] MEDS ORDERED: INSULIN REGULAR 100 UNIT/ML 3ML VIAL. IV ONE (12:00)
[2021-01-04] MEDS ORDERED: DEXTROSE 50% 25 GM / 50ML DISP.SYRIN. IV ONE ×2 (12:00→16:15)
[2021-01-04] MEDS ORDERED: PIPERACILLIN/TAZOBACTAM 3.375 GM in IV NORMAL SALINE 50ML 50 ML IV ONE (12:00)
--- NOTE | 2021-01-04 12:06 | RAD ---
CT STROKE HEAD W/O History: Reason: UNRESPONSIVE / Spl. Instructions: / History: Comparison: December 07, 2020 Technique: Noncontrast CT imaging was performed of the head. Exposure: One or more of the following individualized dose reduction techniques were utilized for thi s examination: 1. Automated exposure control 2. Adjustment of the mA and/or kV according to patient size 3. Use of iterative reconstruction technique. Findings: No intracranial hemorrhage. No mass effect. No hydrocephalus. Moderate foci of decreased attenuation within the hemispheric white matter, most often due to chronic microvascular ischemia, unchanged. Intracranial atheromatous calcifications. Bilateral proptosis due to abundant retro-orbital fat, unchanged. Secretions within the right maxilla ry sinus with mucosal thickening. Mild mucosal thickening within the ethmoid and sphenoid sinuses. Se cretions within the nasal passages and posterior nasopharynx likely related to oral intubation. No ac erik calvarial fracture. Impression: 1. No acute intracranial abnormality. FOR INTERNAL CODING PURPOSES Critical result: Findings discussed with Dr. Carlos at 01/04/2021 12:00 PM. RESULT CODE: (C) Electronically signed by: Delano Perkins DO (01/04/2021 12:03 PM) [id number]
--- NOTE | 2021-01-04 12:13 | EKG ---
[facility] [address] [place] [address] Test Date: 2021-01-04 Test Time: 11:15:55 Pat Name: MARIKA SMITH Department: Room: Gender: F [employer] Work[employer]: : 1960 Requested By: RENATO TRENT Order Number: [id number] Reading MD: Measurements Intervals [place] Rate: 123 P: -54 HI: 126 QRS: -64 QRSD: 106 T: 91 QT: 318 QTc: 461 Interpretive Statements SINUS TACHYCARDIA ABNORMAL LEFT AXIS DEVIATION R-S TRANSITION ZONE IN V LEADS DISPLACED TO THE LEFT LVH WITH REPOLARIZATION ABNORMALITY QRS(T) CONTOUR ABNORMALITY CONSISTENT WITH INFERIOR INFARCT PROBABLY OLD ABNORMAL ECG RI6.01 No previous ECG available for comparison
--- NOTE | 2021-01-04 12:20 | RAD ---
CT CERVICAL SPINE WO History:Reason: FOUND DOWN ON FLOOR BY FAMILY / Spl. Instructions: / History: Technique: Noncontrast CT imaging was performed of the cervical spine. Multiplanar images are reviewe d. Exposure: One or more of the following individualized dose reduction techniques were utilized for thi s examination: 1. Automated exposure control 2. Adjustment of the mA and/or kV according to patient size 3. Use of iterative reconstruction technique. Comparison: None Findings: Straightening of the normal cervical lordosis, likely positional. Normal vertebral body height. No fr acture. Congenitally ununited C1 posterior arch. Multilevel degenerative endplate changes. Moderate degenerative disc changes most prominent C5-C6 and C6-C7. No high-grade canal stenosis. Multilevel neuroforaminal narrowing. Soft tissues unremarkable. Impression: 1. No acute fracture or subluxation of the cervical spine. 2. Moderate multilevel cervical spondylosis. Electronically signed by: Delano Perkins DO (01/04/2021 12:17 PM) [id number]
[2021-01-04] MEDS ORDERED: ROCURONIUM 50 MG/5 ML VIAL. IV ONE (12:45)
[2021-01-04] MEDS ORDERED: MIDAZOLAM HCL/PF 5 MG/5 ML VIAL. IV ONE (12:45)
[2021-01-04] MEDS ORDERED: ETOMIDATE 20 MG/10 ML VIAL. IV ONE (12:45)
[2021-01-04] MEDS ORDERED: SUCCINYLCHOLINE 200 MG/10 ML VIAL. IV ONE (12:45)
[2021-01-04] MEDS ORDERED: ROCURONIUM 100 MG/10 ML VIAL. IV ONE (12:45)
[2021-01-04] MEDS ORDERED: ONDANSETRON PF 4 MG/2 ML VIAL. IV PRN (13:00)
--- NOTE | 2021-01-04 13:12 | RAD ---
EXAM: CHEST 1 VIEW History: Internal jugular line COMPARISON: 01/04/2021 TECHNIQUE: Single portable radiograph of the chest FINDINGS: Moderate cardiomegaly. ET tube, feeding tube is unchanged. Left Internal jugular line iden tified with the tip projecting in the distal SVC region. Mild prominent interstitial lung markings li taras mild congestive changes or interstitial infiltrates. IMPRESSION: Left Internal jugular line identified with tip projecting in the distal SVC region.Mild prominent int erstitial lung markings likely mild congestive changes or interstitial infiltrates Electronically signed by: Osmel Melissa MD (01/04/2021 1:10 PM) [id number]
--- NOTE | 2021-01-04 13:49 | PDOC1 ---
History and Physical Date of Admission Date of Admission DATE: 01/04/21 TIME: 13:48 Identification/Chief Complaint Chief Complaint UNRESPONSIVE IN FIELD History of Present Illness History of Present Illness Ms Castro is a 60 year old female w/ PMHx Asthma, CAD s/p stenting x6, CHF, COPD, Diabetes-Type II, High Cholesterol, Hypertension, neuropathy, morbid obesity, RLS, insomnia who presented to ER in respiratory distress was brought here by EMS from home after she was found unresponsive in her bed by her family. Patient was last known normal was 9 AM yesterday. family tried to call her but could not get a hold of her so they show up to her house, found her unresponsive in her bed. Per family, patient had a CPAP machine on but the mask slid off her face, there was lot of mucus and material around her face and on her neck area. Patient was responsive to painful stimuli but was very confused, did not follow command. EMS were called, they found her in respiratory distress, GCS of 7-8, they bagged her and brought her here. Upon arrival to room, patient was unresponsive to verbal, severe respiratory distress, need emergent intubation. Her family stated that patient was seen here 2 days ago for epigastric abdominal pain. It was recommended that she need to stay in the hospital however patient did not want to stay in the hospital so she went home. AMA Past Medical History Past Medical History Past Medical History Past Medical History: Asthma, CAD, CHF, COPD, Diabetes-Type II, High Cholesterol, Hypertension, [place] Additional Past Medical Histor: neuropathy, morbid obesity, RLS, insomnia, Past Surgical History: Other Additional Past Surgical Histo: STENTS X 6, SCREWS IN LEFT ANKLE Smoking Status: Former Smoker Alcohol Use: None Drug Use: None fhx obesity Cardiovascular: CAD, CHF, HTN, Hyperlipidemia Pulmonary: COPD, Other CENTRAL NERVOUS SYSTEM: Periperal neuropathy GI: Irritable bowel disease Heme/Onc: Iron deficiency Anemia Hepatobiliary: No pertinent hx Psych: Anxiety, Depression Musculoskeletal: Osteoarthritis Rheumatologic: No pertinent hx Infectious disease: No pertinent hx Renal/: Chronic renal insuff Endocrine: Diabetes Past Surgical History Past Surgical History: Other Family History Family History: Diabetes, Hypertension Social History Smoke: No ALCOHOL: rare Drugs: None Current Problem List Problem List Problems Medical Problems: (1) Acute renal failure Status: Acute (2) Altered mental status Status: Acute (3) Aspiration pneumonia Status: Acute (4) Hyperkalemia Status: Acute (5) Respiratory failure Status: Acute (6) Sepsis Status: Acute Current Medications Current Medications Current Medications Amiodarone HCl 450 mg/Dextrose 259 ml @ 33 mls/hr 1X ONCE IV Last administered on 01/04/21at 11:40; Start 01/04/21 at 11:15; Stop 01/04/21 at 19:05 Midazolam HCl 100 ml @ 1 mls/hr 1X ONCE IV Last administered on 01/04/21at 11:39; Start 01/04/21 at 11:30; Stop 01/08/21 at 15:29 Sodium Chloride 1,000 ml @ 1,000 mls/hr 1X ONCE IV Last administered on 01/04/21at 12:13; Start 01/04/21 at 11:45; Stop 01/04/21 at 12:44; Status DC Sodium Bicarbonate (Sodium Bicarb Adult 8.4% Syr) 50 meq 1X ONCE IV Last administered on 01/04/21at 12:55; Start 01/04/21 at 12:00; Stop 01/04/21 at 12:01; Status DC Dextrose (Dextrose 50%-Water Syringe) 25 gm 1X ONCE IV Last administered on 01/04/21at 12:53; Start 01/04/21 at 12:00; Stop 01/04/21 at 12:01; Status DC Insulin Human Regular (HumuLIN R VIAL) 10 unit 1X ONCE IV Last administered on 01/04/21at 12:52; Start 01/04/21 at 12:00; Stop 01/04/21 at 12:01; Status DC Piperacillin Sod/ Tazobactam Sod 3.375 gm/Sodium Chloride 50 ml @ 100 mls/hr 1X ONCE IV Last administered on 01/04/21at 12:12; Start 01/04/21 at 12:00; Stop 01/04/21 at 12:29; Status DC Succinylcholine Chloride (Anectine) 100 mg 1X ONCE IV Last administered on 01/04/21at 11:03; Start 01/04/21 at 12:45; Stop 01/04/21 at 12:46; Status DC Etomidate (Amidate) 20 mg 1X ONCE IV Last administered on 01/04/21at 11:02; Start 01/04/21 at 12:45; Stop 01/04/21 at 12:46; Status DC Rocuronium [place] (Zemuron) 100 mg 1X ONCE IV ; Start 01/04/21 at 12:45; Stop 01/04/21 at 12:46; Status Cancel Midazolam HCl (Versed) 5 mg 1X ONCE IV Last administered on 01/04/21at 11:30; Start 01/04/21 at 12:45; Stop 01/04/21 at 12:46; Status DC Rocuronium [place] (Zemuron) 100 mg 1X ONCE IV Last administered on 01/04/21at 11:33; Start 01/04/21 at 12:45; Stop 01/04/21 at 12:46; Status DC Ondansetron HCl (Zofran) 4 mg PRN Q8HRS PRN IV NAUSEA/VOMITING; Start 01/04/21 at 13:00; Stop 01/05/21 at 12:59 Sodium Chloride 1,000 ml @ 100 mls/hr Q10H IV ; Start 01/04/21 at 13:00; Stop 01/05/21 at 12:59 Active Scripts Active Pantoprazole Sodium (Pantoprazole Sodium) 40 Mg Tablet.dr 40 Mg PO BIDAC 30 Days Clopidogrel (Clopidogrel Bisulfate) 75 Mg Tablet 75 Mg PO [id number] 75 Days Reported Voltaren (Diclofenac Sodium) 100 Gm Gel..gram. 1 Gm TP QID 30 Days apply to affected area(s) Oxycodone Hcl 5 Mg Capsule 5 Mg PO PRN Q6HRS PRN Nystatin 15 Gm Powder 1 Chio TP BID 7 Days apply to affected area(s) Ondansetron Odt (Ondansetron) 4 Mg Tab.rapdis 1 Tab PO PRN Q8HRS PRN Reglan (Metoclopramide Hcl) 10 Mg Tablet 1 Tab PO QID 30 Days before food and bedtime Losartan Potassium 100 Mg Tablet 100 Mg PO DAILY Aspirin 325 Mg Tablet 1 Tab PO DAILY Metformin Hcl 500 Mg Tablet 500 Mg PO BIDWMEALS Bumetanide 1 Mg Tablet 1 Mg PO BID Insulin Aspart 100 Unit/1 Ml Vial 60 Unit SQ TIDAC novolg flex pen Isosorbide Mononitrate Er (Isosorbide Mononitrate) 120 Mg Tab.er.24h 120 Mg PO DAILY NITROGLYCERIN SubLingual (Nitroglycerin) 0.4 Mg Tab.subl 0.4 Mg SL PRN Q5MIN PRN Albuterol Sulfate Neb Soln (Albuterol Sulfate) 2.5 Mg/3 Ml Vial.neb 2.5 Mg NEB Q4-6HRS PRN Levemir Flextouch (Insulin Detemir) 100 Unit/1 Ml Insuln.pen 60 Unit SQ HS Hydralazine Hcl 25 Mg Tablet 25 Mg PO BID Fluticasone Propionate Nasal Mammoth (Fluticasone Propionate) 16 Gm Mammoth.susp 2 Mammoth NS DAILY Zolpidem Tartrate 5 Mg Tablet 5 Mg PO PRN QHS PRN Amlodipine Besylate 10 Mg Tablet 10 Mg PO DAILY Gabapentin 600 Mg Tablet 600 Mg PO BID Potassium Chloride (Potassium Chloride) 20 Meq Tablet.er 20 Meq PO BID Proair Respiclick (Albuterol Sulfate) 90 Mcg Aer.pow.ba 2 Puff IH PRN Q4-6HRS PRN Cyclobenzaprine Hcl 10 Mg Tablet 1 Tab PO BID PRN Requip (Ropinirole Hcl) 1 Mg Tablet 1 Tab PO QHS Crestor (Rosuvastatin Calcium) 20 Mg Tablet 20 Mg PO HS LAST DOSE: 10/01/15 BEDTIME NEXT DOSE: 10/02/15 BEDTIME Oxybutynin Chloride 5 Mg Tablet 1 Tab PO DAILY LAST DOSE: 10/02/15 AM NEXT DOSE: 10/03/15 AM Allergies Allergies: Coded Allergies: No Known Drug Allergies (Unverified , 08/03/20) ROS Review of System SEDATED ON VENT Physical Exam Physical Exam severe distress, toxic appearance, not responsive to verbal or painful stimuli. morbidly obese. BEFORE INTUBATION HENT: Normocephalic, atraumatic, bilateral external ears normal, full of whitish material in oropharynx area, nostrils with whitish drainage. Eyes: PERRLA, conjunctiva normal, no discharge. [] Neck: Normal range of motion, trachea midline, supple, no stridor. [] Cardiovascular: sinus tachycardia, no murmur [] Lungs & Thorax: In respiratory distress, decreased air movement bilaterally, diffused crackles Abdomen: Bowel sounds normal, soft, no tenderness, no masses, no pulsatile masses. [] Skin: Warm, dry, no erythema, no rash. [] Back: atraumatic Extremities: atraumatic, no edema. [] Neurologic patiennt was unresponsive verbal command, obtunded. Psychologic not able to evaluate due to condition. Breasts: Not examined Abdomen: Normal bowel sounds, Soft Rectal Exam: not examined Extremities: No cyanosis Vitals Vitals Vital Signs Date Time Temp Pulse Resp B/P (MAP) Pulse Ox O2 Delivery O2 Flow Rate FiO2 01/04/21 13:40 97 Ventilator 01/04/21 13:08 108 24 238/119 (158) 01/04/21 11:05 25.0 Labs Labs Laboratory Tests Test 01/04/21 11:02 01/04/21 11:19 01/04/21 11:20 Sodium Level 151 mmol/L (136-145) Potassium Level 5.9 mmol/L (3.5-5.1) Chloride Level 112 mmol/L (98-107) Carbon Dioxide Level 34 mmol/L (21-32) Anion Gap 5 (6-14) Blood Urea Nitrogen 15 mg/dL (7-20) Creatinine 2.4 mg/dL (0.6-1.0) Estimated GFR (Cockcroft-Gault) 24.8 BUN/Creatinine Ratio 6 (6-20) Glucose Level 81 mg/dL (70-99) Calcium Level 9.5 mg/dL (8.5-10.1) Magnesium Level 2.3 mg/dL (1.8-2.4) Total Bilirubin 0.3 mg/dL (0.2-1.0) Aspartate Amino Transf (AST/SGOT) 29 U/L (15-37) Alanine Aminotransferase (ALT/SGPT) 19 U/L (14-59) Alkaline Phosphatase 101 U/L (46-116) Troponin I Quantitative 0.639 ng/mL (0.000-0.055) LC-Bbm-S-Type Natriuretic Peptide 5183 pg/mL (0-124) Total Protein 6.7 g/dL (6.4-8.2) Albumin 3.1 g/dL (3.4-5.0) Albumin/Globulin Ratio 0.9 (1.0-1.7) O2 Saturation 99 % (92-99) Arterial Blood pH 7.20 (7.35-7.45) Arterial Blood pCO2 at Patient Temp 62 mmHg (35-46) Arterial Blood pO2 at Patient Temp 191 mmHg (65-108) Arterial Blood HCO3 24 mmol/L (21-28) Arterial Blood Base Excess -5 mmol/L (-3-3) Oxyhemoglobin 98.2 % Methemoglobin 0.5 % (0.0-1.9) Carbon Monoxide, Quantitative 0.1 % (0.0-1.9) FiO2 100 White Blood Count 15.8 x10^3/uL (4.0-11.0) Red Blood Count 4.89 x10^6/uL (3.50-5.40) Hemoglobin 12.1 g/dL (12.0-15.5) Hematocrit 38.6 % (36.0-47.0) Mean Corpuscular Volume 79 fL (79-100) Mean Corpuscular Hemoglobin 25 pg (25-35) Mean Corpuscular Hemoglobin Concent 31 g/dL (31-37) Red Cell Distribution Width 16.9 % (11.5-14.5) Platelet Count 349 x10^3/uL (140-400) Neutrophils (%) (Auto) 73 % (31-73) Lymphocytes (%) (Auto) 20 % (24-48) Monocytes (%) (Auto) 7 % (0-9) Eosinophils (%) (Auto) 0 % (0-3) Basophils (%) (Auto) 0 % (0-3) Neutrophils # (Auto) 11.5 x10^3/uL (1.8-7.7) Lymphocytes # (Auto) 3.1 x10^3/uL (1.0-4.8) Monocytes # (Auto) 1.1 x10^3/uL (0.0-1.1) Eosinophils # (Auto) 0.0 x10^3/uL (0.0-0.7) Basophils # (Auto) 0.1 x10^3/uL (0.0-0.2) Prothrombin Time 14.0 SEC (11.7-14.0) Prothromb Time International Ratio 1.1 (0.8-1.1) Activated Partial Thromboplast Time 32 SEC (24-38) Lactic Acid Level 3.9 mmol/L (0.4-2.0) Laboratory Tests Test 01/04/21 11:02 01/04/21 11:19 01/04/21 11:20 Sodium Level 151 mmol/L (136-145) Potassium Level 5.9 mmol/L (3.5-5.1) Chloride Level 112 mmol/L (98-107) Carbon Dioxide Level 34 mmol/L (21-32) Anion Gap 5 (6-14) Blood Urea Nitrogen 15 mg/dL (7-20) Creatinine 2.4 mg/dL (0.6-1.0) Estimated GFR (Cockcroft-Gault) 24.8 BUN/Creatinine Ratio 6 (6-20) Glucose Level 81 mg/dL (70-99) Calcium Level 9.5 mg/dL (8.5-10.1) Magnesium Level 2.3 mg/dL (1.8-2.4) Total Bilirubin 0.3 mg/dL (0.2-1.0) Aspartate Amino Transf (AST/SGOT) 29 U/L (15-37) Alanine Aminotransferase (ALT/SGPT) 19 U/L (14-59) Alkaline Phosphatase 101 U/L (46-116) Troponin I Quantitative 0.639 ng/mL (0.000-0.055) FP-Hyv-W-Type Natriuretic Peptide 5183 pg/mL (0-124) Total Protein 6.7 g/dL (6.4-8.2) Albumin 3.1 g/dL (3.4-5.0) Albumin/Globulin Ratio 0.9 (1.0-1.7) O2 Saturation 99 % (92-99) Arterial Blood pH 7.20 (7.35-7.45) Arterial Blood pCO2 at Patient Temp 62 mmHg (35-46) Arterial Blood pO2 at Patient Temp 191 mmHg (65-108) Arterial Blood HCO3 24 mmol/L (21-28) Arterial Blood Base Excess -5 mmol/L (-3-3) Oxyhemoglobin 98.2 % Methemoglobin 0.5 % (0.0-1.9) Carbon Monoxide, Quantitative 0.1 % (0.0-1.9) FiO2 100 White Blood Count 15.8 x10^3/uL (4.0-11.0) Red Blood Count 4.89 x10^6/uL (3.50-5.40) Hemoglobin 12.1 g/dL (12.0-15.5) Hematocrit 38.6 % (36.0-47.0) Mean Corpuscular Volume 79 fL (79-100) Mean Corpuscular Hemoglobin 25 pg (25-35) Mean Corpuscular Hemoglobin Concent 31 g/dL (31-37) Red Cell Distribution Width 16.9 % (11.5-14.5) Platelet Count 349 x10^3/uL (140-400) Neutrophils (%) (Auto) 73 % (31-73) Lymphocytes (%) (Auto) 20 % (24-48) Monocytes (%) (Auto) 7 % (0-9) Eosinophils (%) (Auto) 0 % (0-3) Basophils (%) (Auto) 0 % (0-3) Neutrophils # (Auto) 11.5 x10^3/uL (1.8-7.7) Lymphocytes # (Auto) 3.1 x10^3/uL (1.0-4.8) Monocytes # (Auto) 1.1 x10^3/uL (0.0-1.1) Eosinophils # (Auto) 0.0 x10^3/uL (0.0-0.7) Basophils # (Auto) 0.1 x10^3/uL (0.0-0.2) Prothrombin Time 14.0 SEC (11.7-14.0) Prothromb Time International Ratio 1.1 (0.8-1.1) Activated Partial Thromboplast Time 32 SEC (24-38) Lactic Acid Level 3.9 mmol/L (0.4-2.0) Images Images Procedures Left heart catheterization Selective coronary angiogram The patient is a 60-year-old female with a history of stenting to the LAD. The patient had recurrent episodes of chest discomfort. GI work-up was negative. In the setting of her continued chest discomfort a cardiac catheterization and p ossible intervention were recommended. Risks and benefits were discussed with the patient. She agreed to proceed. After informed consent was obtained the patient was brought to the heart catheterization lab. The area the right radial artery was prepared in the usual manner with Betadine, sterile draping and local anesthetic after acceptable Matthew's test. A quick cath device was used to access the right radial artery, a wire placed and a sheath placed over the wire. The standard mixture of heparin and antispasm medications was administered through the sheath. Using a J-wire a 6 [place] JL4 catheter was advanced to the ascending aorta. It was used to engage the left system and sequential injections in various views were obtained. Using an [id number]-[id number]-[id number] exchange technique a JR 4 diagnostic catheter was advanced to the ascending aorta. It was used to enter the left ventricle and pressures were obtained. It was then used to engage the right system and sequential injections of various views were obtained. Following this, a review of the images showed no significant lesions. The wire and catheter were removed from the patient. The sheath was then removed from the patient and the puncture site sealed in standard fashion with a TR band. The patient was moved to the holding area. There were no immediate complication. Hemodynamics. LV pressure of 168/14, 24. Aortic root pressure of 166/84. Coronaries. Left main. The left main was a moderate size vessel with no lesions. Left anterior descending. The patient was a standard sized vessel with normal distribution. There was stent placement from the proximal LAD to the distal LAD. The most significant area of restenosis was in the mid vessel at 35%. Left circumflex. The left circumflex was a moderate sized vessel with no significant lesions. Right coronary artery. The right coronary was a moderate size vessel. It had a proximal 20% lesion and a distal 20% lesion. <Conclusion> Extensive stenting of the LAD with the most significant area of restenosis being a 35% lesion in the mid vessel. Mild disease in the right coronary artery. Fluoroscopy time of 11.4 minutes. Dose of 7.9 GYCM2 Contrast of 118 mils Moderate sedation of 67 minutes Estimated blood loss of 10 mls Protective equipment and shielding was used throughout the procedure. Independent monitoring of the patient was present throughout the procedure. Signed by : Adam Farias MD Electronically Approved : 12/12/2020 15:16:29 DICTATED and SIGNED BY: ADAM FARIAS MD DATE: 12/12/20 [id number] 0 PATIENT: MARIKA CASTRO ACCOUNT: [id number] : 1960 LOCATION: ER AGE: 60 SEX: F EXAM STATUS: REG ER ORD. PHYSICIAN: JESSICA WATERMAN APRN REASON: post intubation PROCEDURE: PORTABLE CHEST 1V AP chest. HISTORY: Post intubation AP view was taken of the chest. There is an endotracheal tube at the aortic arch in good position. NG tube extends into the stomach. Patient's taken a poor inspiration. Heart is mildly prominent. There is no pleural effusion. There is mild atelectasis or infiltrate in the right upper lobe. No other definite infiltrates are noted. IMPRESSION: 1. Endotracheal tube in good position. 2. Mild right upper lobe atelectasis or infiltrate which is new compared to the prior study. Electronically signed by: Gregg Amaya MD (01/04/2021 11:36 AM) [id number] DICTATED and SIGNED BY: GREGG AMAYA MD DATE: 01/04/21 [id number] Signed PATIENT: MARIKA CASTRO ACCOUNT: [id number] : 1960 LOCATION: ER AGE: 60 SEX: F EXAM STATUS: REG ER ORD. PHYSICIAN: RENATO TRENT DO REASON: UNRESPONSIVE [phone] PROCEDURE: CT CODE STROKE HEAD WO CT STROKE HEAD W/O History: Reason: UNRESPONSIVE / Spl. Instructions: / History: Comparison: December 07, 2020 Technique: Noncontrast CT imaging was performed of the head. Exposure: One or more of the following individualized dose reduction techniques were utilized for this examination: 1. Automated exposure control 2. Adjustment of the mA and/or kV according to patient size 3. Use of iterative reconstruction technique. Findings: No intracranial hemorrhage. No mass effect. No hydrocephalus. Moderate foci of decreased attenuation within the hemispheric white matter, most often due to chronic microvascular ischemia, unchanged. Intracranial atheromatous calcifications. Bilateral proptosis due to abundant retro-orbital fat, unchanged. Secretions within the right maxillary sinus with mucosal thickening. Mild mucosal thickening within the ethmoid and sphenoid sinuses. Secretions within the nasal passages and posterior nasopharynx likely related to oral intubation. No acute calvarial fracture. Impression: 1. No acute intracranial abnormality. FOR INTERNAL CODING PURPOSES Critical result: Findings discussed with Dr. Trent at 01/04/2021 12:00 PM. RESULT CODE: (C) Electronically signed by: Delano ePrkins DO (01/04/2021 12:03 PM) [id number] DICTATED and SIGNED BY: DELANO PERKINS DO DATE: 01/04/[id number] CERVICAL SPINE WO History:Reason: FOUND DOWN ON FLOOR BY FAMILY / Spl. Instructions: / History: Technique: Noncontrast CT imaging was performed of the cervical spine. Multiplanar images are reviewed. Exposure: One or more of the following individualized dose reduction techniques were utilized for this examination: 1. Automated exposure control 2. Adjustment of the mA and/or kV according to patient size 3. Use of iterative reconstruction technique. Comparison: None Findings: Straightening of the normal cervical lordosis, likely positional. Normal vertebral body height. No fracture. Congenitally ununited C1 posterior arch. Multilevel degenerative endplate changes. Moderate degenerative disc changes most prominent C5-C6 and C6-C7. No high-grade canal stenosis. Multilevel neuroforaminal narrowing. Soft tissues unremarkable. Impression: 1. No acute fracture or subluxation of the cervical spine. 2. Moderate multilevel cervical spondylosis. Electronically signed by: Delano Perkins DO (01/04/2021 12:17 PM) [id number] DICTATED and SIGNED BY: DELANO PERKINS DO DATE: 01/04/21 [id number] EKG was done at 1115, heart rate of 123 beats per minutes, sinus tachycardia, wide QRS complex. EXAM: CHEST 1 VIEW History: Internal jugular line COMPARISON: 01/04/2021 TECHNIQUE: Single portable radiograph of the chest FINDINGS: Moderate cardiomegaly. ET tube, feeding tube is unchanged. Left Internal jugular line identified with the tip projecting in the distal SVC region. Mild prominent interstitial lung markings likely mild congestive changes or interstitial infiltrates. IMPRESSION: Left Internal jugular line identified with tip projecting in the distal SVC region.Mild prominent interstitial lung markings likely mild congestive changes or interstitial infiltrates Electronically signed by: Osmel Goddard MD (01/04/2021 1:10 PM) [id number] DICTATED and SIGNED BY: OSMEL GODDARD MD DATE: 01/04/21 [id number] PATIENT: MARIKA CASTRO ACCOUNT: [id number] : 1960 LOCATION: ER AGE: 60 SEX: F EXAM STATUS: REG ER ORD. PHYSICIAN: RENATO TRENT DO REASON: UNRESPONSIVE [phone] PROCEDURE: CT CODE STROKE HEAD WO CT STROKE HEAD W/O History: Reason: UNRESPONSIVE / Spl. Instructions: / History: Comparison: December 07, 2020 Technique: Noncontrast CT imaging was performed of the head. Exposure: One or more of the following individualized dose reduction techniques were utilized for this examination: 1. Automated exposure control 2. Adjustment of the mA and/or kV according to patient size 3. Use of iterative reconstruction technique. Findings: No intracranial hemorrhage. No mass effect. No hydrocephalus. Moderate foci of decreased attenuation within the hemispheric white matter, most often due to chronic microvascular ischemia, unchanged. Intracranial atheromatous calcifications. Bilateral proptosis due to abundant retro-orbital fat, unchanged. Secretions within the right maxillary sinus with mucosal thickening. Mild mucosal thickening within the ethmoid and sphenoid sinuses. Secretions within the nasal passages and posterior nasopharynx likely related to oral intubation. No acute calvarial fracture. Impression: 1. No acute intracranial abnormality. FOR INTERNAL CODING PURPOSES Critical result: Findings discussed with Dr. Trent at 01/04/2021 12:00 PM. RESULT CODE: (C) Electronically signed by: Delano Perkins DO (01/04/2021 12:03 PM) [id number] DICTATED and SIGNED BY: DELAON PERKINS DO DATE: 01/04/21 [id number] VTE Prophylaxis Ordered VTE Prophylaxis Devices: Yes VTE Pharmacological Prophylaxi: Yes Assessment/Plan Assessment/Plan Impression: Respiratory failure SUSPECT aspiration pneumonia Mild prominent interstitial lung markings likely mild congestive changes or interstitial infiltrates ACUTE STEMI CAD Extensive stenting of the LAD with the most significant area of restenosis being a 35% lesion in the mid vessel. Mild disease in the right coronary artery. Acute renal failure/ MIRIAM Hyperkalemia Aspiration pneumonia Altered mental status Sepsis MORBID OBESITY ADMITTED ICU BED Consult cardiology Nephrology consult ID CONSULT PULM CONSULT VENT SUPPORT DVT PROPHYLAXIS EMPERIC IV ANTIBIOTICS, Zosyn pending id consult Neurology consult 57 MIN CC TIME Justifications for Admission Other Justification CINDY SCHMIDT MD Jan 04, 2021 13:49
[2021-01-04] MEDS ORDERED: 0.9 % SODIUM CHLORIDE 10 ML DISP.SYRIN. IV PRN (14:00)
[2021-01-04] MEDS ORDERED: PIP/TAZO PER PHARMACY MC PRN (14:00)
[2021-01-04] MEDS ORDERED: ONDANSETRON PF 4 MG/2 ML VIAL. IVP PRN (14:00)
[2021-01-04] MEDS ORDERED: BISACODYL 10 MG SUPP.RECT. PR PRN (14:00)
[2021-01-04 15:16] LABS: BASE EXCESS ABG 1 mmol/L (-3-3); HCO3 ABG 25 mmol/L (21-28); PCO2 ABG 37 mmHg (35-46); PO2 ABG 102 mmHg (65-108); SAT O2 ABG 98 % (92-99)
[2021-01-04] MEDS ORDERED: PIPERACILLIN/TAZOBACTAM 2.25 GM in IV NORMAL SALINE 50ML 50 ML IV SCH (18:00)
[2021-01-04] MEDS ORDERED: MEROPENEM 500 MG in IV NORMAL SALINE 50ML 50 ML IV SCH (18:00)
[2021-01-04] MEDS: IV NORMAL SALINE 1000ML BAG 1,000 ML IV SCH ×2 (18:40→23:00)
[2021-01-04] MEDS: HEPARIN for SUB-Q USE 5,000 UNIT/ML VIAL. SQ SCH ×2 (18:41→21:31)
[2021-01-04] MEDS ORDERED: VALPROIC ACID (AS SODIUM SALT) 1,000 MG in IV DEXTROSE 5% 50 ML IV ONE (19:30)
[2021-01-04] MEDS: AMIODARONE 450 MG in IV DEXTROSE 5% 250 ML IV PRN (20:24)
[2021-01-04 21:06] LABS: BILIRUBIN,URINE SMALL (NEG); CLARITY,URINE CLEAR; COLOR,URINE YELLOW; NITRITE,URINE NEGATIVE (NEG); PH,URINE 5.5 (<5.0-8.0); PROTEIN,URINE >=300 mg/dL (NEG-TRACE); UROBILINOGEN,URINE 0.2 mg/dL (0.2 mg/dL)
--- NOTE | 2021-01-04 21:17 | CONS ---
DATE OF CONSULTATION: 01/04/2021 ATTENDING PHYSICIAN: Mino Cabral MD REASON FOR CONSULTATION: The patient is seen in pulmonary consultation at the request of Dr. Cabral for out of hospital pulmonary arrest, currently intubated. The patient is seen in the Emergency Department. HISTORY OF PRESENT ILLNESS: The patient is a 60-year-old that was actually here back in November. She had a complete workup including a cardiac catheterization. At that time, she had LAD stenting. Her ejection fraction was 55%. She also was complaining of some abdominal discomfort. At that time, she was elected to go home. According to her family, she was last seen yesterday at 9:00 a.m. She normally uses CPAP at home. She has been having some issues with epigastric discomfort. They found her today at home, not responsive, lying in bed with the CPAP machine at home and evidence of emesis on her clothing. The patient was transferred to EMS. Upon arrival to the Emergency Room, she was unresponsive. She was intubated. She then sonia'd down and they had a semi-code blue. Her initial blood gas revealed a pH of 7.20, PaCO2 of 62, pO2 of 191, bicarbonate was 24. The patient was stabilized. She was intubated. She was given IV fluids. During her visit in the Emergency Department, SARS-CoV-2 rapid test was negative. Her electrolytes were abnormal. Sodium was elevated. Potassium was elevated. BUN was 15, creatinine was 2.4. Troponin level was elevated. BNP was elevated. Lactic acid level initially was elevated. Her white count was elevated. She has been given some IV antibiotics, IV fluids. During my evaluation in the Emergency Department, she was having some evidence of facial twitching. Otherwise, vital signs are stable. PAST MEDICAL HISTORY: 1. Coronary artery disease with previous stenting of the LAD. Echocardiogram revealed ejection fraction of 55%. 2. Type 2 diabetes. 3. Hyperlipidemia. 4. Hypertension. 5. Significant gastroesophageal reflux. Apparently, she sees a lead clinical research coordinator at [facility]. 6. Morbid obesity. 7. Obstructive sleep apnea. 8. Previous myocardial infarction. 9. Neuropathy. PAST SURGICAL HISTORY: As indicated above. Previous stenting to the LAD. SOCIAL HISTORY: Former smoker. REVIEW OF SYSTEMS: Unobtainable secondary to the patient's condition. CURRENT MEDICATIONS: List was reviewed. ALLERGIES: No known drug allergies listed. HOME MEDICATIONS: List was reviewed. It included albuterol, cyclobenzaprine, Plavix, hydralazine, isosorbide, nitroglycerin, metoprolol, amlodipine, losartan, aspirin, Ambien, gabapentin, potassium supplement, bumetanide, fluconazole nasal spray, p.r.n. Zofran, Protonix, Reglan, metformin, insulin, nystatin. PHYSICAL EXAMINATION: GENERAL: The patient was seen in the Emergency Department. She was on mechanical ventilation. VITAL SIGNS: O2 saturation was greater than 92%, blood pressure was elevated. HEENT: She was having facial twitching, orally placed endotracheal tube. NECK: Jugular venous distention could not be assessed secondary to body habitus. CHEST: Full expansion. LUNGS: Scattered rhonchi. No wheezes. HEART: Distant heart sounds. ABDOMEN: Marked obesity. EXTREMITIES: Marked obesity with minimal edema. NEUROLOGIC: The patient was sedated. LABORATORY DATA: As indicated above. Chest x-ray as indicated above reviewed. There is mainly a right upper lobe infiltrate. Endotracheal tube in place. IMPRESSION: 1. Acute hypoxemic hypercapnic respiratory failure. 2. Suspect aspiration pneumonia. 3. Abnormal chest x-ray, compatible with aspiration. 4. Cardiopulmonary arrest secondary to aspiration and hypoxemia. 5. Coronary artery disease with recent percutaneous coronary intervention to the left anterior descending. 6. Normal ejection fraction. 7. Type 2 diabetes. 8. Chronic obstructive pulmonary disease. 9. Morbid obesity. 10. Hypertension. 11. Obstructive sleep apnea. PLAN: 1. I will continue current support with mechanical ventilation, high minute ventilation. Repeat arterial blood gas. 2. We will empirically treat for aspiration pneumonia with antibiotics. 3. Monitor blood sugars. 4. Consult Neurology for questionable seizures. 5. No need for hypothermic protocol. 6. DVT and GI prophylaxis. 7. Consult Cardiology, p.r.n. hydralazine for elevated blood pressure. I do appreciate the privilege in sharing in the patient's care. Total cumulative critical care time of 50 minutes, reviewing the current documentation, discussing case with RN and RT, examining the patient, and formulating an impression and plan. TRACIE/VENUS CHATTERJEE: Bala TID: [id number]
[2021-01-04 21:18] LABS: BACTERIA,URINE MODERATE /HPF (0-FEW); GRANULAR CASTS,URINE FEW /HPF; HYALINE CASTS, URINE FEW /HPF; RBC,URINE >40 /HPF (0-2); WBC,URINE >40 /HPF (0-4)
[2021-01-04] MEDS: FAMOTIDINE 20 MG/2 ML VIAL IVP SCH (21:30)
[2021-01-04] MEDS: PIPERACILLIN/TAZOBACTAM 2.25 GM in IV NORMAL SALINE 50ML 50 ML IV SCH (21:30)
[2021-01-05] VITALS (24 sets, daily range): BP systolic 116–186; BP diastolic 49–114
[2021-01-05] MEDS ORDERED: MIDAZOLAM 100mg/100ml NS BAG 100 ML IV PRN (02:00)
[2021-01-05] MEDS: PIPERACILLIN/TAZOBACTAM 2.25 GM in IV NORMAL SALINE 50ML 50 ML IV SCH ×3 (06:15→22:00)
[2021-01-05] MEDS: HEPARIN for SUB-Q USE 5,000 UNIT/ML VIAL. SQ SCH ×3 (06:20→22:00)
[2021-01-05 06:22] LABS: BASO # 0.1 x10^3/uL (0.0-0.2); BASO % 0 % (0-3); EOS % 0 % (0-3); HEMATOCRIT 34.9 % (36.0-47.0); LYMPH # 1.2 x10^3/uL (1.0-4.8); LYMPH % 9 % (24-48); MEAN CORPUSCULAR HEMOGLOBIN 24 pg (25-35); MEAN CORPUSCULAR HGB CONC 32 g/dL (31-37); MEAN CORPUSCULAR VOLUME 77 fL (79-100); MONO % 8 % (0-9); NEUT # 10.7 x10^3/uL (1.8-7.7); NEUT % 82 % (31-73); PLATELET COUNT 219 x10^3/uL (140-400); RED BLOOD COUNT 4.53 x10^6/uL (3.50-5.40); RED CELL DISTRIBUTION WIDTH 16.2 % (11.5-14.5)
[2021-01-05 06:56] LABS: ALBUMIN 2.2 g/dL (3.4-5.0); ALBUMIN/GLOBULIN RATIO 0.5 (1.0-1.7); CALCIUM 8.8 mg/dL (8.5-10.1); CREATININE 2.1 mg/dL (0.6-1.0); GFR 28.9; POTASSIUM 3.9 mmol/L (3.5-5.1); TOTAL BILIRUBIN 0.5 mg/dL (0.2-1.0); TOTAL PROTEIN 6.3 g/dL (6.4-8.2)
--- NOTE | 2021-01-05 06:59 | RAD ---
Chest AP portable at 0522: Reason for examination: Pneumonia. Comparison is made to previous study dated 01/04/2021. Endotracheal tube is present with the tip approximately 2 cm above the sukh. This should be withdra wn at least a centimeter. Central venous catheter tip is in the superior vena cava. NG tube is presen t with the tip below the hemidiaphragms in the stomach. Heart size and mediastinum are unchanged. Demarcus g shelton show continued presence of interstitial opacities but there are also areas of consolidated i nfiltrates developing in the right perihilar and lower lobe distribution. No pleural effusions are se en. No pneumothorax is evident. No acute bony abnormalities are seen. IMPRESSION: Continued presence of interstitial changes bilaterally. Areas of consolidated infiltrates developing in the right perihilar and lower lobe distributions. Electronically signed by: Maria Eugenia Mon MD (01/05/2021 6:57 AM) [place]
[2021-01-05 08:07] LABS: MAGNESIUM 2.2 mg/dL (1.8-2.4); PHOSPHORUS 3.7 mg/dL (2.6-4.7)
[2021-01-05] MEDS: hydrALAZINE 20 MG/ML VIAL. IVP PRN ×3 (08:11→23:34)
[2021-01-05 08:31] LABS: BASE EXCESS ABG 3 mmol/L (-3-3); FIO2 ABG 50; HCO3 ABG 27 mmol/L (21-28); PCO2 ABG 39 mmHg (35-46); PO2 ABG 152 mmHg (65-108); SAT O2 ABG 99 % (92-99)
[2021-01-05] MEDS ORDERED: VALPROIC ACID (AS SODIUM SALT) 500 MG in IV DEXTROSE 5% 50 ML IV SCH (09:00)
--- NOTE | 2021-01-05 09:24 | PDOC ---
PULMONARY PROGRESS NOTES DATE: 01/05/21 TIME: 09:13 Subjective on vent versed was just stopped no response small ett secretion Vitals Vital Signs Date Time Temp Pulse Resp B/P (MAP) Pulse Ox O2 Delivery O2 Flow Rate FiO2 01/05/21 08:15 100 Ventilator 01/05/21 08:11 79 176/76 01/05/21 07:57 99.2 18 99.2 01/04/21 11:05 25.0 Comments ros on vent unable to obtain no response HEENT: Other (nc at perrl nose clear orally intubated neck no lad no thyromegaly ) Lungs: Crackles Cardiovascular: S1, S2 Abdomen: Soft, Non-tender, Other (no mass obese) Extremities: Other (edema) Skin: Warm Labs Laboratory Tests Test 01/04/21 11:02 01/04/21 11:19 01/04/21 11:20 01/04/21 13:55 Sodium Level 151 mmol/L (136-145) Potassium Level 5.9 mmol/L (3.5-5.1) Chloride Level 112 mmol/L (98-107) Carbon Dioxide Level 34 mmol/L (21-32) Anion Gap 5 (6-14) Blood Urea Nitrogen 15 mg/dL (7-20) Creatinine 2.4 mg/dL (0.6-1.0) Estimated GFR (Cockcroft-Gault) 24.8 BUN/Creatinine Ratio 6 (6-20) Glucose Level 81 mg/dL (70-99) Calcium Level 9.5 mg/dL (8.5-10.1) Magnesium Level 2.3 mg/dL (1.8-2.4) Total Bilirubin 0.3 mg/dL (0.2-1.0) Aspartate Amino Transf (AST/SGOT) 29 U/L (15-37) Alanine Aminotransferase (ALT/SGPT) 19 U/L (14-59) Alkaline Phosphatase 101 U/L (46-116) Lactate Dehydrogenase 224 U/L (81-234) Troponin I Quantitative 0.639 ng/mL (0.000-0.055) MY-Svi-J-Type Natriuretic Peptide 5183 pg/mL (0-124) Total Protein 6.7 g/dL (6.4-8.2) Albumin 3.1 g/dL (3.4-5.0) Albumin/Globulin Ratio 0.9 (1.0-1.7) Thyroid Stimulating Hormone (TSH) 1.492 uIU/mL (0.358-3.74) O2 Saturation 99 % (92-99) Arterial Blood pH 7.20 (7.35-7.45) Arterial Blood pCO2 at Patient Temp 62 mmHg (35-46) Arterial Blood pO2 at Patient Temp 191 mmHg (65-108) Arterial Blood HCO3 24 mmol/L (21-28) Arterial Blood Base Excess -5 mmol/L (-3-3) Oxyhemoglobin 98.2 % Methemoglobin 0.5 % (0.0-1.9) Carbon Monoxide, Quantitative 0.1 % (0.0-1.9) FiO2 100 White Blood Count 15.8 x10^3/uL (4.0-11.0) Red Blood Count 4.89 x10^6/uL (3.50-5.40) Hemoglobin 12.1 g/dL (12.0-15.5) Hematocrit 38.6 % (36.0-47.0) Mean Corpuscular Volume 79 fL (79-100) Mean Corpuscular Hemoglobin 25 pg (25-35) Mean Corpuscular Hemoglobin Concent 31 g/dL (31-37) Red Cell Distribution Width 16.9 % (11.5-14.5) Platelet Count 349 x10^3/uL (140-400) Neutrophils (%) (Auto) 73 % (31-73) Lymphocytes (%) (Auto) 20 % (24-48) Monocytes (%) (Auto) 7 % (0-9) Eosinophils (%) (Auto) 0 % (0-3) Basophils (%) (Auto) 0 % (0-3) Neutrophils # (Auto) 11.5 x10^3/uL (1.8-7.7) Lymphocytes # (Auto) 3.1 x10^3/uL (1.0-4.8) Monocytes # (Auto) 1.1 x10^3/uL (0.0-1.1) Eosinophils # (Auto) 0.0 x10^3/uL (0.0-0.7) Basophils # (Auto) 0.1 x10^3/uL (0.0-0.2) Prothrombin Time 14.0 SEC (11.7-14.0) Prothromb Time International Ratio 1.1 (0.8-1.1) Activated Partial Thromboplast Time 32 SEC (24-38) Lactic Acid Level 3.9 mmol/L (0.4-2.0) SARS-CoV-2 Antigen (Rapid) Negative (NEGATIVE) Test 01/04/21 15:11 01/04/21 15:50 01/04/21 15:56 01/04/21 20:29 O2 Saturation 98 % (92-99) Arterial Blood pH 7.44 (7.35-7.45) Arterial Blood pCO2 at Patient Temp 37 mmHg (35-46) Arterial Blood pO2 at Patient Temp 102 mmHg (65-108) Arterial Blood HCO3 25 mmol/L (21-28) Arterial Blood Base Excess 1 mmol/L (-3-3) FiO2 60% vent Lactic Acid Level 2.2 mmol/L (0.4-2.0) Glucose (Fingerstick) 62 mg/dL (70-99) 108 mg/dL (70-99) Test 01/04/21 20:30 01/05/21 06:00 01/05/21 08:15 Urine Collection Type Unknown Urine Color Yellow Urine Clarity Clear Urine pH 5.5 (<5.0-8.0) Urine Specific Lutts 1.025 (1.000-1.030) Urine Protein >=300 mg/dL (NEG-TRACE) Urine Glucose (UA) Negative mg/dL (NEG) Urine Ketones (Stick) Trace mg/dL (NEG) Urine Blood Large (NEG) Urine Nitrite Negative (NEG) Urine Bilirubin Small (NEG) Urine Urobilinogen Dipstick 0.2 mg/dL (0.2 mg/dL) Urine Leukocyte Esterase Negative (NEG) Urine RBC >40 /HPF (0-2) Urine WBC >40 /HPF (0-4) Urine Squamous Epithelial Cells Few /LPF Urine Bacteria Moderate /HPF (0-FEW) Urine Cellular Casts Few /HPF Urine Hyaline Casts Few /HPF Urine Granular Casts Few /HPF Urine Mucus Slight /LPF White Blood Count 13.0 x10^3/uL (4.0-11.0) Red Blood Count 4.53 x10^6/uL (3.50-5.40) Hemoglobin 11.0 g/dL (12.0-15.5) Hematocrit 34.9 % (36.0-47.0) Mean Corpuscular Volume 77 fL (79-100) Mean Corpuscular Hemoglobin 24 pg (25-35) Mean Corpuscular Hemoglobin Concent 32 g/dL (31-37) Red Cell Distribution Width 16.2 % (11.5-14.5) Platelet Count 219 x10^3/uL (140-400) Neutrophils (%) (Auto) 82 % (31-73) Lymphocytes (%) (Auto) 9 % (24-48) Monocytes (%) (Auto) 8 % (0-9) Eosinophils (%) (Auto) 0 % (0-3) Basophils (%) (Auto) 0 % (0-3) Neutrophils # (Auto) 10.7 x10^3/uL (1.8-7.7) Lymphocytes # (Auto) 1.2 x10^3/uL (1.0-4.8) Monocytes # (Auto) 1.0 x10^3/uL (0.0-1.1) Eosinophils # (Auto) 0.0 x10^3/uL (0.0-0.7) Basophils # (Auto) 0.1 x10^3/uL (0.0-0.2) Sodium Level 151 mmol/L (136-145) Potassium Level 3.9 mmol/L (3.5-5.1) Chloride Level 113 mmol/L (98-107) Carbon Dioxide Level 26 mmol/L (21-32) Anion Gap 12 (6-14) Blood Urea Nitrogen 17 mg/dL (7-20) Creatinine 2.1 mg/dL (0.6-1.0) Estimated GFR (Cockcroft-Gault) 28.9 BUN/Creatinine Ratio 8 (6-20) Glucose Level 109 mg/dL (70-99) Calcium Level 8.8 mg/dL (8.5-10.1) Phosphorus Level 3.7 mg/dL (2.6-4.7) Magnesium Level 2.2 mg/dL (1.8-2.4) Total Bilirubin 0.5 mg/dL (0.2-1.0) Aspartate Amino Transf (AST/SGOT) 49 U/L (15-37) Alanine Aminotransferase (ALT/SGPT) 18 U/L (14-59) Alkaline Phosphatase 87 U/L (46-116) Total Protein 6.3 g/dL (6.4-8.2) Albumin 2.2 g/dL (3.4-5.0) Albumin/Globulin Ratio 0.5 (1.0-1.7) O2 Saturation 99 % (92-99) Arterial Blood pH 7.45 (7.35-7.45) Arterial Blood pCO2 at Patient Temp 39 mmHg (35-46) Arterial Blood pO2 at Patient Temp 152 mmHg (65-108) Arterial Blood HCO3 27 mmol/L (21-28) Arterial Blood Base Excess 3 mmol/L (-3-3) FiO2 50 Laboratory Tests Test 01/04/21 11:02 01/04/21 11:19 01/04/21 11:20 01/04/21 13:55 Sodium Level 151 mmol/L (136-145) Potassium Level 5.9 mmol/L (3.5-5.1) Chloride Level 112 mmol/L (98-107) Carbon Dioxide Level 34 mmol/L (21-32) Anion Gap 5 (6-14) Blood Urea Nitrogen 15 mg/dL (7-20) Creatinine 2.4 mg/dL (0.6-1.0) Estimated GFR (Cockcroft-Gault) 24.8 BUN/Creatinine Ratio 6 (6-20) Glucose Level 81 mg/dL (70-99) Calcium Level 9.5 mg/dL (8.5-10.1) Magnesium Level 2.3 mg/dL (1.8-2.4) Total Bilirubin 0.3 mg/dL (0.2-1.0) Aspartate Amino Transf (AST/SGOT) 29 U/L (15-37) Alanine Aminotransferase (ALT/SGPT) 19 U/L (14-59) Alkaline Phosphatase 101 U/L (46-116) Lactate Dehydrogenase 224 U/L (81-234) Troponin I Quantitative 0.639 ng/mL (0.000-0.055) OT-Mof-B-Type Natriuretic Peptide 5183 pg/mL (0-124) Total Protein 6.7 g/dL (6.4-8.2) Albumin 3.1 g/dL (3.4-5.0) Albumin/Globulin Ratio 0.9 (1.0-1.7) Thyroid Stimulating Hormone (TSH) 1.492 uIU/mL (0.358-3.74) O2 Saturation 99 % (92-99) Arterial Blood pH 7.20 (7.35-7.45) Arterial Blood pCO2 at Patient Temp 62 mmHg (35-46) Arterial Blood pO2 at Patient Temp 191 mmHg (65-108) Arterial Blood HCO3 24 mmol/L (21-28) Arterial Blood Base Excess -5 mmol/L (-3-3) Oxyhemoglobin 98.2 % Methemoglobin 0.5 % (0.0-1.9) Carbon Monoxide, Quantitative 0.1 % (0.0-1.9) FiO2 100 White Blood Count 15.8 x10^3/uL (4.0-11.0) Red Blood Count 4.89 x10^6/uL (3.50-5.40) Hemoglobin 12.1 g/dL (12.0-15.5) Hematocrit 38.6 % (36.0-47.0) Mean Corpuscular Volume 79 fL (79-100) Mean Corpuscular Hemoglobin 25 pg (25-35) Mean Corpuscular Hemoglobin Concent 31 g/dL (31-37) Red Cell Distribution Width 16.9 % (11.5-14.5) Platelet Count 349 x10^3/uL (140-400) Neutrophils (%) (Auto) 73 % (31-73) Lymphocytes (%) (Auto) 20 % (24-48) Monocytes (%) (Auto) 7 % (0-9) Eosinophils (%) (Auto) 0 % (0-3) Basophils (%) (Auto) 0 % (0-3) Neutrophils # (Auto) 11.5 x10^3/uL (1.8-7.7) Lymphocytes # (Auto) 3.1 x10^3/uL (1.0-4.8) Monocytes # (Auto) 1.1 x10^3/uL (0.0-1.1) Eosinophils # (Auto) 0.0 x10^3/uL (0.0-0.7) Basophils # (Auto) 0.1 x10^3/uL (0.0-0.2) Prothrombin Time 14.0 SEC (11.7-14.0) Prothromb Time International Ratio 1.1 (0.8-1.1) Activated Partial Thromboplast Time 32 SEC (24-38) Lactic Acid Level 3.9 mmol/L (0.4-2.0) SARS-CoV-2 Antigen (Rapid) Negative (NEGATIVE) Test 01/04/21 15:11 01/04/21 15:50 01/04/21 15:56 01/04/21 20:29 O2 Saturation 98 % (92-99) Arterial Blood pH 7.44 (7.35-7.45) Arterial Blood pCO2 at Patient Temp 37 mmHg (35-46) Arterial Blood pO2 at Patient Temp 102 mmHg (65-108) Arterial Blood HCO3 25 mmol/L (21-28) Arterial Blood Base Excess 1 mmol/L (-3-3) FiO2 60% vent Lactic Acid Level 2.2 mmol/L (0.4-2.0) Glucose (Fingerstick) 62 mg/dL (70-99) 108 mg/dL (70-99) Test 01/04/21 20:30 01/05/21 06:00 01/05/21 08:15 Urine Collection Type Unknown Urine Color Yellow Urine Clarity Clear Urine pH 5.5 (<5.0-8.0) Urine Specific Lutts 1.025 (1.000-1.030) Urine Protein >=300 mg/dL (NEG-TRACE) Urine Glucose (UA) Negative mg/dL (NEG) Urine Ketones (Stick) Trace mg/dL (NEG) Urine Blood Large (NEG) Urine Nitrite Negative (NEG) Urine Bilirubin Small (NEG) Urine Urobilinogen Dipstick 0.2 mg/dL (0.2 mg/dL) Urine Leukocyte Esterase Negative (NEG) Urine RBC >40 /HPF (0-2) Urine WBC >40 /HPF (0-4) Urine Squamous Epithelial Cells Few /LPF Urine Bacteria Moderate /HPF (0-FEW) Urine Cellular Casts Few /HPF Urine Hyaline Casts Few /HPF Urine Granular Casts Few /HPF Urine Mucus Slight /LPF White Blood Count 13.0 x10^3/uL (4.0-11.0) Red Blood Count 4.53 x10^6/uL (3.50-5.40) Hemoglobin 11.0 g/dL (12.0-15.5) Hematocrit 34.9 % (36.0-47.0) Mean Corpuscular Volume 77 fL (79-100) Mean Corpuscular Hemoglobin 24 pg (25-35) Mean Corpuscular Hemoglobin Concent 32 g/dL (31-37) Red Cell Distribution Width 16.2 % (11.5-14.5) Platelet Count 219 x10^3/uL (140-400) Neutrophils (%) (Auto) 82 % (31-73) Lymphocytes (%) (Auto) 9 % (24-48) Monocytes (%) (Auto) 8 % (0-9) Eosinophils (%) (Auto) 0 % (0-3) Basophils (%) (Auto) 0 % (0-3) Neutrophils # (Auto) 10.7 x10^3/uL (1.8-7.7) Lymphocytes # (Auto) 1.2 x10^3/uL (1.0-4.8) Monocytes # (Auto) 1.0 x10^3/uL (0.0-1.1) Eosinophils # (Auto) 0.0 x10^3/uL (0.0-0.7) Basophils # (Auto) 0.1 x10^3/uL (0.0-0.2) Sodium Level 151 mmol/L (136-145) Potassium Level 3.9 mmol/L (3.5-5.1) Chloride Level 113 mmol/L (98-107) Carbon Dioxide Level 26 mmol/L (21-32) Anion Gap 12 (6-14) Blood Urea Nitrogen 17 mg/dL (7-20) Creatinine 2.1 mg/dL (0.6-1.0) Estimated GFR (Cockcroft-Gault) 28.9 BUN/Creatinine Ratio 8 (6-20) Glucose Level 109 mg/dL (70-99) Calcium Level 8.8 mg/dL (8.5-10.1) Phosphorus Level 3.7 mg/dL (2.6-4.7) Magnesium Level 2.2 mg/dL (1.8-2.4) Total Bilirubin 0.5 mg/dL (0.2-1.0) Aspartate Amino Transf (AST/SGOT) 49 U/L (15-37) Alanine Aminotransferase (ALT/SGPT) 18 U/L (14-59) Alkaline Phosphatase 87 U/L (46-116) Total Protein 6.3 g/dL (6.4-8.2) Albumin 2.2 g/dL (3.4-5.0) Albumin/Globulin Ratio 0.5 (1.0-1.7) O2 Saturation 99 % (92-99) Arterial Blood pH 7.45 (7.35-7.45) Arterial Blood pCO2 at Patient Temp 39 mmHg (35-46) Arterial Blood pO2 at Patient Temp 152 mmHg (65-108) Arterial Blood HCO3 27 mmol/L (21-28) Arterial Blood Base Excess 3 mmol/L (-3-3) FiO2 50 Medications Active Scripts Medications Dose Route/Sig Max Daily Dose Days Date Category Dose Instructions Voltaren (Diclofenac Sodium) 100 Gm Gel..gram. 1 Gm TP QID 30 12/10/20 Reported apply to affected area(s) Oxycodone Hcl 5 Mg Capsule 5 Mg PO PRN Q6HRS PRN 12/08/20 Reported Nystatin 15 Gm Powder 1 [place] TP BID 7 12/08/20 Reported apply to affected area(s) Ondansetron Odt (Ondansetron) 4 Mg Tab.rapdis 1 Tab PO PRN Q8HRS PRN 11/05/20 Reported Reglan (Metoclopramide Hcl) 10 Mg Tablet 1 Tab PO QID 30 11/05/20 Reported before food and bedtime Pantoprazole Sodium (Pantoprazole Sodium) 40 Mg Tablet.dr 40 Mg PO BIDAC 30 06/21/20 Rx Losartan Potassium 100 Mg Tablet 100 Mg PO DAILY 05/03/20 Reported Aspirin 325 Mg Tablet 1 Tab PO DAILY 05/03/20 Reported Metformin Hcl 500 Mg Tablet 500 Mg PO BIDWMEALS 05/03/20 Reported Bumetanide 1 Mg Tablet 1 Mg PO BID 04/02/20 Reported Insulin Aspart 100 Unit/1 Ml Vial 60 Unit SQ TIDAC 04/02/20 Reported novolg flex pen Isosorbide Mononitrate Er (Isosorbide Mononitrate) 120 Mg Tab.er.24h 120 Mg PO DAILY 04/02/20 Reported NITROGLYCERIN SubLingual (Nitroglycerin) 0.4 Mg Tab.subl 0.4 Mg SL PRN Q5MIN PRN 04/02/20 Reported Albuterol Sulfate Neb Soln (Albuterol Sulfate) 2.5 Mg/3 Ml Vial.neb 2.5 Mg NEB Q4-6HRS PRN 04/02/20 Reported Levemir Flextouch (Insulin Detemir) 100 Unit/1 Ml Insuln.pen 60 Unit SQ HS 04/02/20 Reported Hydralazine Hcl 25 Mg Tablet 25 Mg PO BID 04/02/20 Reported Fluticasone Propionate Nasal [place] (Fluticasone Propionate) 16 Gm [place].susp 2 [place] NS DAILY 06/18/19 Reported Zolpidem Tartrate 5 Mg Tablet 5 Mg PO PRN QHS PRN 06/18/19 Reported Amlodipine Besylate 10 Mg Tablet 10 Mg PO DAILY 06/18/19 Reported Gabapentin 600 Mg Tablet 600 Mg PO BID 06/18/19 Reported Potassium Chloride (Potassium Chloride) 20 Meq Tablet.er 20 Meq PO BID 06/18/19 Reported Clopidogrel (Clopidogrel Bisulfate) 75 Mg Tablet 75 Mg PO DAILYWBKFT 75 11/10/17 Rx Proair Respiclick (Albuterol Sulfate) 90 Mcg Aer.pow.ba 2 Puff IH PRN Q4-6HRS PRN 09/08/16 Reported Cyclobenzaprine Hcl 10 Mg Tablet 1 Tab PO BID PRN 09/08/16 Reported Requip (Ropinirole Hcl) 1 Mg Tablet 1 Tab PO QHS 09/08/16 Reported Crestor (Rosuvastatin Calcium) 20 Mg Tablet 20 Mg PO HS 10/02/15 Reported LAST DOSE: 10/01/15 BEDTIME NEXT DOSE: 10/02/15 BEDTIME Oxybutynin Chloride 5 Mg Tablet 1 Tab PO DAILY 10/02/15 Reported LAST DOSE: 10/02/15 AM NEXT DOSE: 10/03/15 AM Comments cxr 01/05 reviewed b lat infilt worse ett ok Impression . IMPRESSION: 1. Acute hypoxemic hypercapnic respiratory failure. 2. aspiration pneumonia. 3. Abnormal chest x-ray, compatible with aspiration. ? sys chf 4. Cardiopulmonary arrest secondary to aspiration and hypoxemia. 5. Coronary artery disease with recent percutaneous coronary intervention to the left anterior descending. 6. Normal ejection fraction. 7. Type 2 diabetes. 8. Chronic obstructive pulmonary disease. 9. Morbid obesity. 10. Hypertension. 11. Obstructive sleep apnea. 12. encephalopathy ? anoxic Plan . PLAN: 1. cont vent support setting reviewed, abg reviewed, personally decreased fio2 to 40% not alert enough to do sbt sedation stopped 2. cont antibiotics. 3. Monitor blood sugars. 4. Neurology consulted for questionable seizures. on anti sz meds 5. elevate hob 6. DVT and GI prophylaxis. 7. Cardiology consulted, p.r.n. hydralazine for elevated blood pressure. 8. has le edema will do le venous doppler discussed w DAYRON Adams MD Jan 05, 2021 09:24
[2021-01-05] MEDS: IV NORMAL SALINE 1000ML BAG 1,000 ML IV SCH (09:41)
--- NOTE | 2021-01-05 10:32 | PDOC2 ---
CONSULT Date of Consult Date of Consult DATE: 01/05/21 TIME: 10:32 Reason for Consult Reason for Consult: Ventricular fibrillation Referring Physician Referring Physician: Dr. Cabral Identification/Chief Complaint Chief Complaint Unresponsiveness Source Source: Chart review History of Present Illness Reason for Visit: 60-year-old female with history of coronary artery disease was apparently found unresponsive in her bed by her son with unknown downtime. Patient had CPAP machine on but the mask was found to have slipped off her face and she had vo mitus on her face and neck. EMS found her in altered mental status acute respiratory failure thought to be secondary to aspiration. Patient was urgently intubated in ED. During the difficult intubation patient became bradycardic and CODE BLUE was initiated. Patient subsequently went into ventricular fibrillation, underwent shock therapy and was initiated on intravenous amiodaro ne infusion. She is currently intubated and has no significant history can be obtained. Past Medical History Cardiovascular: CAD, CHF, HTN, Hyperlipidemia Pulmonary: COPD, Other CENTRAL NERVOUS SYSTEM: Periperal neuropathy GI: Irritable bowel disease Heme/Onc: Iron deficiency Anemia Hepatobiliary: No pertinent hx Psych: Anxiety, Depression Musculoskeletal: Osteoarthritis Rheumatologic: No pertinent hx Infectious disease: No pertinent hx Renal/: Chronic renal insuff Endocrine: Diabetes Past Surgical History Past Surgical History: Other Family History Family History: Diabetes, Hypertension Social History No ALCOHOL: rare Drugs: None Lives: with Family Current Problem List Problem List Problems Medical Problems: (1) Acute renal failure Status: Acute (2) Altered mental status Status: Acute (3) Aspiration pneumonia Status: Acute (4) Hyperkalemia Status: Acute (5) Respiratory failure Status: Acute (6) Sepsis Status: Acute Current Medications Current Medications Current Medications Amiodarone HCl 450 mg/Dextrose 259 ml @ 33 mls/hr 1X ONCE IV Last administered on 01/04/21at 11:40; Start 01/04/21 at 11:15; Stop 01/04/21 at 19:05; Status DC Midazolam HCl 100 ml @ 1 mls/hr 1X ONCE IV Last administered on 01/04/21at 11: 39; Start 01/04/21 at 11:30; Stop 01/05/21 at 09:51; Status DC Sodium Chloride 1,000 ml @ 1,000 mls/hr 1X ONCE IV Last administered on 01/04/21at 12:13; Start 01/04/21 at 11:45; Stop 01/04/21 at 12:44; Status DC Sodium Bicarbonate (Sodium Bicarb Adult 8.4% Syr) 50 meq 1X ONCE IV Last administered on 01/04/21at 12:55; Start 01/04/21 at 12:00; Stop 01/04/21 at 12:01; Status DC Dextrose (Dextrose 50%-Water Syringe) 25 gm 1X ONCE IV Last administered on 01/04/21at 12:53; Start 01/04/21 at 12:00; Stop 01/04/21 at 12:01; Status DC Insulin Human Regular (HumuLIN R VIAL) 10 unit 1X ONCE IV Last administered on 01/04/21at 12:52; Start 01/04/21 at 12:00; Stop 01/04/21 at 12:01; Status DC Piperacillin Sod/ Tazobactam Sod 3.375 gm/Sodium Chloride 50 ml @ 100 mls/hr 1X ONCE IV Last administered on 01/04/21at 12:12; Start 01/04/21 at 12:00; Stop 01/04/21 at 12:29; Status DC Succinylcholine Chloride (Anectine) 100 mg 1X ONCE IV Last administered on 01/04/21at 11:03; Start 01/04/21 at 12:45; Stop 01/04/21 at 12:46; Status DC Etomidate (Amidate) 20 mg 1X ONCE IV Last administered on 01/04/21at 11:02; Start 01/04/21 at 12:45; Stop 01/04/21 at 12:46; Status DC Rocuronium [place] (Zemuron) 100 mg 1X ONCE IV ; Start 01/04/21 at 12:45; Stop 01/04/21 at 12:46; Status Cancel Midazolam HCl (Versed) 5 mg 1X ONCE IV Last administered on 01/04/21at 11:30; Start 01/04/21 at 12:45; Stop 01/04/21 at 12:46; Status DC Rocuronium [place] (Zemuron) 100 mg 1X ONCE IV Last administered on 01/04/21at 11:33; Start 01/04/21 at 12:45; Stop 01/04/21 at 12:46; Status DC Ondansetron HCl (Zofran) 4 mg PRN Q8HRS PRN IV NAUSEA/VOMITING; Start 01/04/21 at 13:00; Stop 01/05/21 at 09:48; Status DC Sodium Chloride 1,000 ml @ 100 mls/hr Q10H IV Last administered on 01/05/21at 09:41; Start 01/04/21 at 13:00; Stop 01/05/21 at 12:59 Ondansetron HCl (Zofran) 4 mg PRN Q6HRS PRN IVP NAUSEA/VOMITING; Start 01/04/21 at 14:00 Famotidine (Pepcid Vial) 20 mg QHS IVP Last administered on 01/04/21at 21:30; Start 01/04/21 at 21:00 Heparin Sodium (Porcine) (Heparin Sodium) 5,000 unit Q8HRS SQ Last administered on 01/05/21at 06:20; Start 01/04/21 at 14:00 Sodium Chloride (Normal Saline Flush) 3 ml QSHIFT PRN IV AFTER MEDS AND BLOOD DRAWS; Start 01/04/21 at 14:00 Bisacodyl (Dulcolax Supp) 10 mg PRN DAILY PRN [place] CONSTIPATION; Start 01/04/21 at 14:00 Piperacillin Sod/ Tazobactam Sod (Zosyn Per Pharmacy) 1 each PRN DAILY PRN MC SEE COMMENTS; Start 01/04/21 at 14:00; Stop 01/04/21 at 17:48; Status DC Piperacillin Sod/ Tazobactam Sod 2.25 gm/Sodium Chloride 50 ml @ 100 mls/hr Q6HRS IV ; Start 01/04/21 at 18:00; Stop 01/04/21 at 17:49; Status DC Dextrose (Dextrose 50%-Water Syringe) 25 gm 1X ONCE IV Last administered on 01/04/21at 16:21; Start 01/04/21 at 16:15; Stop 01/04/21 at 16:16; Status DC Meropenem 500 mg/ Sodium Chloride 50 ml @ 100 mls/hr Q8HRS IV ; Start 01/04/21 at 18:00; Status Cancel Piperacillin Sod/ Tazobactam Sod 2.25 gm/Sodium Chloride 50 ml @ 100 mls/hr Q8HRS IV Last administered on 01/05/21at 06:15; Start 01/04/21 at 22:00 Linezolid/Dextrose 300 ml @ 300 mls/hr Q12HR IV Last administered on 01/05/21at 08:11; Start 01/04/21 at 21:00 Valproic Acid 500 mg/Dextrose 55 ml @ 55 mls/hr Q12HR IV Last administered on 01/05/21at 09:40; Start 01/05/21 at 09:00 Valproic Acid 1000 mg/Dextrose 60 ml @ 60 mls/hr 1X ONCE IV Last administered on 01/04/21at 19:30; Start 01/04/21 at 19:30; Stop 01/04/21 at 20:29; Status DC Lorazepam (Ativan Inj) 2 mg PRN Q2HRS PRN IVP ANXIETY / AGITATION Last administered on 01/05/21at 06:21; Start 01/04/21 at 19:30 Hydralazine HCl (Apresoline Inj) 10 mg PRN Q6HRS PRN IVP ELEVATED BP, SEE COMMENTS Last administered on 01/05/21at 08:11; Start 01/04/21 at 19:45 Amiodarone HCl 450 mg/Dextrose 259 ml @ 33 mls/hr CONT PRN IV SEE I/O RECORD Last administered on 01/04/21at 20:24; Start 01/04/21 at 20:15 Midazolam HCl 100 ml @ 1 mls/hr CONT PRN IV SEE I/O RECORD Last administered on 01/05/21at 02:00; Start 01/05/21 at 02:00 Active Scripts Active Pantoprazole Sodium (Pantoprazole Sodium) 40 Mg Tablet.dr 40 Mg PO BIDAC 30 Days Clopidogrel (Clopidogrel Bisulfate) 75 Mg Tablet 75 Mg PO DAILYWBKFT 75 Days Reported Voltaren (Diclofenac Sodium) 100 Gm Gel..gram. 1 Gm TP QID 30 Days apply to affected area(s) Oxycodone Hcl 5 Mg Capsule 5 Mg PO PRN Q6HRS PRN Nystatin 15 Gm Powder 1 [place] TP BID 7 Days apply to affected area(s) Ondansetron Odt (Ondansetron) 4 Mg Tab.rapdis 1 Tab PO PRN Q8HRS PRN Reglan (Metoclopramide Hcl) 10 Mg Tablet 1 Tab PO QID 30 Days before food and bedtime Losartan Potassium 100 Mg Tablet 100 Mg PO DAILY Aspirin 325 Mg Tablet 1 Tab PO DAILY Metformin Hcl 500 Mg Tablet 500 Mg PO BIDWMEALS Bumetanide 1 Mg Tablet 1 Mg PO BID Insulin Aspart 100 Unit/1 Ml Vial 60 Unit SQ TIDAC novolg flex pen Isosorbide Mononitrate Er (Isosorbide Mononitrate) 120 Mg Tab.er.24h 120 Mg PO DAILY NITROGLYCERIN SubLingual (Nitroglycerin) 0.4 Mg Tab.subl 0.4 Mg SL PRN Q5MIN PRN Albuterol Sulfate Neb Soln (Albuterol Sulfate) 2.5 Mg/3 Ml Vial.neb 2.5 Mg NEB Q4-6HRS PRN Levemir Flextouch (Insulin Detemir) 100 Unit/1 Ml Insuln.pen 60 Unit SQ HS Hydralazine Hcl 25 Mg Tablet 25 Mg PO BID Fluticasone Propionate Nasal [place] (Fluticasone Propionate) 16 Gm [place].susp 2 [place] NS DAILY Zolpidem Tartrate 5 Mg Tablet 5 Mg PO PRN QHS PRN Amlodipine Besylate 10 Mg Tablet 10 Mg PO DAILY Gabapentin 600 Mg Tablet 600 Mg PO BID Potassium Chloride (Potassium Chloride) 20 Meq Tablet.er 20 Meq PO BID Proair Respiclick (Albuterol Sulfate) 90 Mcg Aer.pow.ba 2 Puff IH PRN Q4-6HRS PRN Cyclobenzaprine Hcl 10 Mg Tablet 1 Tab PO BID PRN Requip (Ropinirole Hcl) 1 Mg Tablet 1 Tab PO QHS Crestor (Rosuvastatin Calcium) 20 Mg Tablet 20 Mg PO HS LAST DOSE: 10/01/15 BEDTIME NEXT DOSE: 10/02/15 BEDTIME Oxybutynin Chloride 5 Mg Tablet 1 Tab PO DAILY LAST DOSE: 10/02/15 AM NEXT DOSE: 10/03/15 AM Allergies Allergies: Coded Allergies: No Known Drug Allergies (Unverified , 08/03/20) ROS Review of System Cannot be obtained since she is intubated Physical Exam General: Other Lungs: Other (Decreased air entry in the bases and scattered crepitations) Heart: Regular rate Abdomen: Soft Extremities: Other (Trace edema) Vitals VITALS Vital Signs Date Time Temp Pulse Resp B/P (MAP) Pulse Ox O2 Delivery O2 Flow Rate FiO2 01/05/21 10:00 88 20 156/70 (98) 100 Ventilator 01/05/21 07:57 99.2 99.2 01/04/21 11:05 25.0 Labs Labs Laboratory Tests Test 01/04/21 11:02 01/04/21 11:19 01/04/21 11:20 01/04/21 13:55 Sodium Level 151 mmol/L (136-145) Potassium Level 5.9 mmol/L (3.5-5.1) Chloride Level 112 mmol/L (98-107) Carbon Dioxide Level 34 mmol/L (21-32) Anion Gap 5 (6-14) Blood Urea Nitrogen 15 mg/dL (7-20) Creatinine 2.4 mg/dL (0.6-1.0) Estimated GFR (Cockcroft-Gault) 24.8 BUN/Creatinine Ratio 6 (6-20) Glucose Level 81 mg/dL (70-99) Calcium Level 9.5 mg/dL (8.5-10.1) Magnesium Level 2.3 mg/dL (1.8-2.4) Total Bilirubin 0.3 mg/dL (0.2-1.0) Aspartate Amino Transf (AST/SGOT) 29 U/L (15-37) Alanine Aminotransferase (ALT/SGPT) 19 U/L (14-59) Alkaline Phosphatase 101 U/L (46-116) Lactate Dehydrogenase 224 U/L (81-234) Troponin I Quantitative 0.639 ng/mL (0.000-0.055) ZA-Rfc-G-Type Natriuretic Peptide 5183 pg/mL (0-124) Total Protein 6.7 g/dL (6.4-8.2) Albumin 3.1 g/dL (3.4-5.0) Albumin/Globulin Ratio 0.9 (1.0-1.7) Thyroid Stimulating Hormone (TSH) 1.492 uIU/mL (0.358-3.74) O2 Saturation 99 % (92-99) Arterial Blood pH 7.20 (7.35-7.45) Arterial Blood pCO2 at Patient Temp 62 mmHg (35-46) Arterial Blood pO2 at Patient Temp 191 mmHg (65-108) Arterial Blood HCO3 24 mmol/L (21-28) Arterial Blood Base Excess -5 mmol/L (-3-3) Oxyhemoglobin 98.2 % Methemoglobin 0.5 % (0.0-1.9) Carbon Monoxide, Quantitative 0.1 % (0.0-1.9) FiO2 100 White Blood Count 15.8 x10^3/uL (4.0-11.0) Red Blood Count 4.89 x10^6/uL (3.50-5.40) Hemoglobin 12.1 g/dL (12.0-15.5) Hematocrit 38.6 % (36.0-47.0) Mean Corpuscular Volume 79 fL (79-100) Mean Corpuscular Hemoglobin 25 pg (25-35) Mean Corpuscular Hemoglobin Concent 31 g/dL (31-37) Red Cell Distribution Width 16.9 % (11.5-14.5) Platelet Count 349 x10^3/uL (140-400) Neutrophils (%) (Auto) 73 % (31-73) Lymphocytes (%) (Auto) 20 % (24-48) Monocytes (%) (Auto) 7 % (0-9) Eosinophils (%) (Auto) 0 % (0-3) Basophils (%) (Auto) 0 % (0-3) Neutrophils # (Auto) 11.5 x10^3/uL (1.8-7.7) Lymphocytes # (Auto) 3.1 x10^3/uL (1.0-4.8) Monocytes # (Auto) 1.1 x10^3/uL (0.0-1.1) Eosinophils # (Auto) 0.0 x10^3/uL (0.0-0.7) Basophils # (Auto) 0.1 x10^3/uL (0.0-0.2) Prothrombin Time 14.0 SEC (11.7-14.0) Prothromb Time International Ratio 1.1 (0.8-1.1) Activated Partial Thromboplast Time 32 SEC (24-38) Lactic Acid Level 3.9 mmol/L (0.4-2.0) SARS-CoV-2 Antigen (Rapid) Negative (NEGATIVE) Test 01/04/21 15:11 01/04/21 15:50 01/04/21 15:56 01/04/21 20:29 O2 Saturation 98 % (92-99) Arterial Blood pH 7.44 (7.35-7.45) Arterial Blood pCO2 at Patient Temp 37 mmHg (35-46) Arterial Blood pO2 at Patient Temp 102 mmHg (65-108) Arterial Blood HCO3 25 mmol/L (21-28) Arterial Blood Base Excess 1 mmol/L (-3-3) FiO2 60% vent Lactic Acid Level 2.2 mmol/L (0.4-2.0) Glucose (Fingerstick) 62 mg/dL (70-99) 108 mg/dL (70-99) Test 01/04/21 20:30 01/05/21 06:00 01/05/21 08:15 Urine Collection Type Unknown Urine Color Yellow Urine Clarity Clear Urine pH 5.5 (<5.0-8.0) Urine Specific [place] 1.025 (1.000-1.030) Urine Protein >=300 mg/dL (NEG-TRACE) Urine Glucose (UA) Negative mg/dL (NEG) Urine Ketones (Stick) Trace mg/dL (NEG) Urine Blood Large (NEG) Urine Nitrite Negative (NEG) Urine Bilirubin Small (NEG) Urine Urobilinogen Dipstick 0.2 mg/dL (0.2 mg/dL) Urine Leukocyte Esterase Negative (NEG) Urine RBC >40 /HPF (0-2) Urine WBC >40 /HPF (0-4) Urine Squamous Epithelial Cells Few /LPF Urine Bacteria Moderate /HPF (0-FEW) Urine Cellular Casts Few /HPF Urine Hyaline Casts Few /HPF Urine Granular Casts Few /HPF Urine Mucus Slight /LPF White Blood Count 13.0 x10^3/uL (4.0-11.0) Red Blood Count 4.53 x10^6/uL (3.50-5.40) Hemoglobin 11.0 g/dL (12.0-15.5) Hematocrit 34.9 % (36.0-47.0) Mean Corpuscular Volume 77 fL (79-100) Mean Corpuscular Hemoglobin 24 pg (25-35) Mean Corpuscular Hemoglobin Concent 32 g/dL (31-37) Red Cell Distribution Width 16.2 % (11.5-14.5) Platelet Count 219 x10^3/uL (140-400) Neutrophils (%) (Auto) 82 % (31-73) Lymphocytes (%) (Auto) 9 % (24-48) Monocytes (%) (Auto) 8 % (0-9) Eosinophils (%) (Auto) 0 % (0-3) Basophils (%) (Auto) 0 % (0-3) Neutrophils # (Auto) 10.7 x10^3/uL (1.8-7.7) Lymphocytes # (Auto) 1.2 x10^3/uL (1.0-4.8) Monocytes # (Auto) 1.0 x10^3/uL (0.0-1.1) Eosinophils # (Auto) 0.0 x10^3/uL (0.0-0.7) Basophils # (Auto) 0.1 x10^3/uL (0.0-0.2) Sodium Level 151 mmol/L (136-145) Potassium Level 3.9 mmol/L (3.5-5.1) Chloride Level 113 mmol/L (98-107) Carbon Dioxide Level 26 mmol/L (21-32) Anion Gap 12 (6-14) Blood Urea Nitrogen 17 mg/dL (7-20) Creatinine 2.1 mg/dL (0.6-1.0) Estimated GFR (Cockcroft-Gault) 28.9 BUN/Creatinine Ratio 8 (6-20) Glucose Level 109 mg/dL (70-99) Calcium Level 8.8 mg/dL (8.5-10.1) Phosphorus Level 3.7 mg/dL (2.6-4.7) Magnesium Level 2.2 mg/dL (1.8-2.4) Total Bilirubin 0.5 mg/dL (0.2-1.0) Aspartate Amino Transf (AST/SGOT) 49 U/L (15-37) Alanine Aminotransferase (ALT/SGPT) 18 U/L (14-59) Alkaline Phosphatase 87 U/L (46-116) Total Protein 6.3 g/dL (6.4-8.2) Albumin 2.2 g/dL (3.4-5.0) Albumin/Globulin Ratio 0.5 (1.0-1.7) O2 Saturation 99 % (92-99) Arterial Blood pH 7.45 (7.35-7.45) Arterial Blood pCO2 at Patient Temp 39 mmHg (35-46) Arterial Blood pO2 at Patient Temp 152 mmHg (65-108) Arterial Blood HCO3 27 mmol/L (21-28) Arterial Blood Base Excess 3 mmol/L (-3-3) FiO2 50 Laboratory Tests Test 01/04/21 11:02 01/04/21 11:19 01/04/21 11:20 01/04/21 13:55 Sodium Level 151 mmol/L (136-145) Potassium Level 5.9 mmol/L (3.5-5.1) Chloride Level 112 mmol/L (98-107) Carbon Dioxide Level 34 mmol/L (21-32) Anion Gap 5 (6-14) Blood Urea Nitrogen 15 mg/dL (7-20) Creatinine 2.4 mg/dL (0.6-1.0) Estimated GFR (Cockcroft-Gault) 24.8 BUN/Creatinine Ratio 6 (6-20) Glucose Level 81 mg/dL (70-99) Calcium Level 9.5 mg/dL (8.5-10.1) Magnesium Level 2.3 mg/dL (1.8-2.4) Total Bilirubin 0.3 mg/dL (0.2-1.0) Aspartate Amino Transf (AST/SGOT) 29 U/L (15-37) Alanine Aminotransferase (ALT/SGPT) 19 U/L (14-59) Alkaline Phosphatase 101 U/L (46-116) Lactate Dehydrogenase 224 U/L (81-234) Troponin I Quantitative 0.639 ng/mL (0.000-0.055) IW-Mcn-I-Type Natriuretic Peptide 5183 pg/mL (0-124) Total Protein 6.7 g/dL (6.4-8.2) Albumin 3.1 g/dL (3.4-5.0) Albumin/Globulin Ratio 0.9 (1.0-1.7) Thyroid Stimulating Hormone (TSH) 1.492 uIU/mL (0.358-3.74) O2 Saturation 99 % (92-99) Arterial Blood pH 7.20 (7.35-7.45) Arterial Blood pCO2 at Patient Temp 62 mmHg (35-46) Arterial Blood pO2 at Patient Temp 191 mmHg (65-108) Arterial Blood HCO3 24 mmol/L (21-28) Arterial Blood Base Excess -5 mmol/L (-3-3) Oxyhemoglobin 98.2 % Methemoglobin 0.5 % (0.0-1.9) Carbon Monoxide, Quantitative 0.1 % (0.0-1.9) FiO2 100 White Blood Count 15.8 x10^3/uL (4.0-11.0) Red Blood Count 4.89 x10^6/uL (3.50-5.40) Hemoglobin 12.1 g/dL (12.0-15.5) Hematocrit 38.6 % (36.0-47.0) Mean Corpuscular Volume 79 fL (79-100) Mean Corpuscular Hemoglobin 25 pg (25-35) Mean Corpuscular Hemoglobin Concent 31 g/dL (31-37) Red Cell Distribution Width 16.9 % (11.5-14.5) Platelet Count 349 x10^3/uL (140-400) Neutrophils (%) (Auto) 73 % (31-73) Lymphocytes (%) (Auto) 20 % (24-48) Monocytes (%) (Auto) 7 % (0-9) Eosinophils (%) (Auto) 0 % (0-3) Basophils (%) (Auto) 0 % (0-3) Neutrophils # (Auto) 11.5 x10^3/uL (1.8-7.7) Lymphocytes # (Auto) 3.1 x10^3/uL (1.0-4.8) Monocytes # (Auto) 1.1 x10^3/uL (0.0-1.1) Eosinophils # (Auto) 0.0 x10^3/uL (0.0-0.7) Basophils # (Auto) 0.1 x10^3/uL (0.0-0.2) Prothrombin Time 14.0 SEC (11.7-14.0) Prothromb Time International Ratio 1.1 (0.8-1.1) Activated Partial Thromboplast Time 32 SEC (24-38) Lactic Acid Level 3.9 mmol/L (0.4-2.0) SARS-CoV-2 Antigen (Rapid) Negative (NEGATIVE) Test 01/04/21 15:11 01/04/21 15:50 01/04/21 15:56 01/04/21 20:29 O2 Saturation 98 % (92-99) Arterial Blood pH 7.44 (7.35-7.45) Arterial Blood pCO2 at Patient Temp 37 mmHg (35-46) Arterial Blood pO2 at Patient Temp 102 mmHg (65-108) Arterial Blood HCO3 25 mmol/L (21-28) Arterial Blood Base Excess 1 mmol/L (-3-3) FiO2 60% vent Lactic Acid Level 2.2 mmol/L (0.4-2.0) Glucose (Fingerstick) 62 mg/dL (70-99) 108 mg/dL (70-99) Test 01/04/21 20:30 01/05/21 06:00 01/05/21 08:15 Urine Collection Type Unknown Urine Color Yellow Urine Clarity Clear Urine pH 5.5 (<5.0-8.0) Urine Specific [place] 1.025 (1.000-1.030) Urine Protein >=300 mg/dL (NEG-TRACE) Urine Glucose (UA) Negative mg/dL (NEG) Urine Ketones (Stick) Trace mg/dL (NEG) Urine Blood Large (NEG) Urine Nitrite Negative (NEG) Urine Bilirubin Small (NEG) Urine Urobilinogen Dipstick 0.2 mg/dL (0.2 mg/dL) Urine Leukocyte Esterase Negative (NEG) Urine RBC >40 /HPF (0-2) Urine WBC >40 /HPF (0-4) Urine Squamous Epithelial Cells Few /LPF Urine Bacteria Moderate /HPF (0-FEW) Urine Cellular Casts Few /HPF Urine Hyaline Casts Few /HPF Urine Granular Casts Few /HPF Urine Mucus Slight /LPF White Blood Count 13.0 x10^3/uL (4.0-11.0) Red Blood Count 4.53 x10^6/uL (3.50-5.40) Hemoglobin 11.0 g/dL (12.0-15.5) Hematocrit 34.9 % (36.0-47.0) Mean Corpuscular Volume 77 fL (79-100) Mean Corpuscular Hemoglobin 24 pg (25-35) Mean Corpuscular Hemoglobin Concent 32 g/dL (31-37) Red Cell Distribution Width 16.2 % (11.5-14.5) Platelet Count 219 x10^3/uL (140-400) Neutrophils (%) (Auto) 82 % (31-73) Lymphocytes (%) (Auto) 9 % (24-48) Monocytes (%) (Auto) 8 % (0-9) Eosinophils (%) (Auto) 0 % (0-3) Basophils (%) (Auto) 0 % (0-3) Neutrophils # (Auto) 10.7 x10^3/uL (1.8-7.7) Lymphocytes # (Auto) 1.2 x10^3/uL (1.0-4.8) Monocytes # (Auto) 1.0 x10^3/uL (0.0-1.1) Eosinophils # (Auto) 0.0 x10^3/uL (0.0-0.7) Basophils # (Auto) 0.1 x10^3/uL (0.0-0.2) Sodium Level 151 mmol/L (136-145) Potassium Level 3.9 mmol/L (3.5-5.1) Chloride Level 113 mmol/L (98-107) Carbon Dioxide Level 26 mmol/L (21-32) Anion Gap 12 (6-14) Blood Urea Nitrogen 17 mg/dL (7-20) Creatinine 2.1 mg/dL (0.6-1.0) Estimated GFR (Cockcroft-Gault) 28.9 BUN/Creatinine Ratio 8 (6-20) Glucose Level 109 mg/dL (70-99) Calcium Level 8.8 mg/dL (8.5-10.1) Phosphorus Level 3.7 mg/dL (2.6-4.7) Magnesium Level 2.2 mg/dL (1.8-2.4) Total Bilirubin 0.5 mg/dL (0.2-1.0) Aspartate Amino Transf (AST/SGOT) 49 U/L (15-37) Alanine Aminotransferase (ALT/SGPT) 18 U/L (14-59) Alkaline Phosphatase 87 U/L (46-116) Total Protein 6.3 g/dL (6.4-8.2) Albumin 2.2 g/dL (3.4-5.0) Albumin/Globulin Ratio 0.5 (1.0-1.7) O2 Saturation 99 % (92-99) Arterial Blood pH 7.45 (7.35-7.45) Arterial Blood pCO2 at Patient Temp 39 mmHg (35-46) Arterial Blood pO2 at Patient Temp 152 mmHg (65-108) Arterial Blood HCO3 27 mmol/L (21-28) Arterial Blood Base Excess 3 mmol/L (-3-3) FiO2 50 Assessment/Plan Assessment/Plan 1. Acute hypoxic hypercapnic respiratory failure most probably secondary to aspiration pneumonia s/p intubation and mechanical ventilation. Pulmonary team following. Continue intravenous antibiotics. 2. Ventricular fibrillation during difficult intubation, could have been precipitated by hypoxia. Slight troponin elevation 0.6 most probably demand ischemia secondary to CPR/defibrillation. EKG showed sinus rhythm with right bundle branch block. Telemetry did not show any further arrhythmias. Continue amiodarone infusion for now. 3. Coronary artery disease: Recent cardiac catheterization in November 2020 showed patent long stented proximal to distal LAD. No lesions needing intervention were noted. 2D echo at that time showed LVEF 55 to 60%. Continue current secondary prevention measures. 4. Hypertension: Labile secondary to agitation. 5. Hyperlipidemia: Statins 6. DM 2: Per IM 7. Acute kidney injury: Nephrology following [facility] prognosis. Thank you for your consultation. ERICA ADEN MD Jan 05, 2021 10:32
--- NOTE | 2021-01-05 11:27 | PDOC2 ---
CONSULT Date of Consult Date of Consult DATE: 01/05/21 TIME: 11:08 Reason for Consult Reason for Consult: MIRIAM Identification/Chief Complaint Chief Complaint Unable to obtain Intubated/MV Source Source: Chart review History of Present Illness Reason for Visit: Patient is a 60 year old AA female w/ PMHx Asthma, CAD s/p stenting x6, CHF, COPD, Diabetes-Type II, Hypertension, was brought here by EMS from home in respiratory distress after she was found unresponsive in her bed by her family. Patient was last known normal was 9 AM on 01/03; family tried to call her but could not get a hold of her so they went up to her house, found her unresponsive in her bed. Per family, patient had a CPAP machine on but the mask slid off her face, there was lot of mucus and material around her face and on her neck area. Patient was responsive to painful stimuli but was very confused, did not follow command. EMS were called, they found her in respiratory distress, GCS of 7-8, they bagged her and brought her here. Upon arrival to room, patient was unresponsive to verbal, severe respiratory distress, need emergent intubation. Her family stated that patient was in [facility] ER 2 days ago for epigastric abdominal pain , was advised hospitalization but she left AMA History obtained from chart review Past Medical History Cardiovascular: CAD, CHF, HTN, Hyperlipidemia Pulmonary: COPD, Other CENTRAL NERVOUS SYSTEM: Periperal neuropathy GI: Irritable bowel disease Heme/Onc: Iron deficiency Anemia Hepatobiliary: No pertinent hx Psych: Anxiety, Depression Musculoskeletal: Osteoarthritis Rheumatologic: No pertinent hx Infectious disease: No pertinent hx Renal/: Chronic renal insuff Endocrine: Diabetes Past Surgical History Past Surgical History: Other Family History Family History: Diabetes, Hypertension Social History No ALCOHOL: rare Drugs: None Lives: with Family Current Problem List Problem List Problems Medical Problems: (1) Acute renal failure Status: Acute (2) Altered mental status Status: Acute (3) Aspiration pneumonia Status: Acute (4) Hyperkalemia Status: Acute (5) Respiratory failure Status: Acute (6) Sepsis Status: Acute Current Medications Current Medications Current Medications Amiodarone HCl 450 mg/Dextrose 259 ml @ 33 mls/hr 1X ONCE IV Last administered on 01/04/21at 11:40; Start 01/04/21 at 11:15; Stop 01/04/21 at 19:05; Status DC Midazolam HCl 100 ml @ 1 mls/hr 1X ONCE IV Last administered on 01/04/21at 11:39; Start 01/04/21 at 11:30; Stop 01/05/21 at 09:51; Status DC Sodium Chloride 1,000 ml @ 1,000 mls/hr 1X ONCE IV Last administered on 01/04at 12:13; Start 01/04/21 at 11:45; Stop 01/04/21 at 12:44; Status DC Sodium Bicarbonate (Sodium Bicarb Adult 8.4% Syr) 50 meq 1X ONCE IV Last administered on 01/04/21at 12:55; Start 01/04/21 at 12:00; Stop 01/04/21 at 12:01; Status DC Dextrose (Dextrose 50%-Water Syringe) 25 gm 1X ONCE IV Last administered on 01/04/21at 12:53; Start 01/04/21 at 12:00; Stop 01/04/21 at 12:01; Status DC Insulin Human Regular (HumuLIN R VIAL) 10 unit 1X ONCE IV Last administered on 01/04/21at 12:52; Start 01/04/21 at 12:00; Stop 01/04/21 at 12:01; Status DC Piperacillin Sod/ Tazobactam Sod 3.375 gm/Sodium Chloride 50 ml @ 100 mls/hr 1X ONCE IV Last administered on 01/04/21at 12:12; Start 01/04/21 at 12:00; Stop 01/04/21 at 12:29; Status DC Succinylcholine Chloride (Anectine) 100 mg 1X ONCE IV Last administered on 01/04/21at 11:03; Start 01/04/21 at 12:45; Stop 01/04/21 at 12:46; Status DC Etomidate (Amidate) 20 mg 1X ONCE IV Last administered on 01/04/21at 11:02; Start 01/04/21 at 12:45; Stop 01/04/21 at 12:46; Status DC Rocuronium Ralston (Zemuron) 100 mg 1X ONCE IV ; Start 01/04/21 at 12:45; Stop 01/04/21 at 12:46; Status Cancel Midazolam HCl (Versed) 5 mg 1X ONCE IV Last administered on 01/04/21at 11:30; Start 01/04/21 at 12:45; Stop 01/04/21 at 12:46; Status DC Rocuronium Ralston (Zemuron) 100 mg 1X ONCE IV Last administered on 01/04/21at 11:33; Start 01/04/21 at 12:45; Stop 01/04/21 at 12:46; Status DC Ondansetron HCl (Zofran) 4 mg PRN Q8HRS PRN IV NAUSEA/VOMITING; Start 01/04/21 at 13:00; Stop 01/05/21 at 09:48; Status DC Sodium Chloride 1,000 ml @ 100 mls/hr Q10H IV Last administered on 01/05/21at 09:41; Start 01/04/21 at 13:00; Stop 01/05/21 at 12:59 Ondansetron HCl (Zofran) 4 mg PRN Q6HRS PRN IVP NAUSEA/VOMITING; Start 01/04/21 at 14:00 Famotidine (Pepcid Vial) 20 mg QHS IVP Last administered on 01/04/21at 21:30; Start 01/04/21 at 21:00 Heparin Sodium (Porcine) (Heparin Sodium) 5,000 unit Q8HRS SQ Last administered on 01/05/21at 06:20; Start 01/04/21 at 14:00 Sodium Chloride (Normal Saline Flush) 3 ml QSHIFT PRN IV AFTER MEDS AND BLOOD DRAWS; Start 01/04/21 at 14:00 Bisacodyl (Dulcolax Supp) 10 mg PRN DAILY PRN CO CONSTIPATION; Start 01/04/21 at 14:00 Piperacillin Sod/ Tazobactam Sod (Zosyn Per Pharmacy) 1 each PRN DAILY PRN MC SEE COMMENTS; Start 01/04/21 at 14:00; Stop 01/04/21 at 17:48; Status DC Piperacillin Sod/ Tazobactam Sod 2.25 gm/Sodium Chloride 50 ml @ 100 mls/hr Q6HRS IV ; Start 01/04/21 at 18:00; Stop 01/04/21 at 17:49; Status DC Dextrose (Dextrose 50%-Water Syringe) 25 gm 1X ONCE IV Last administered on 01/04/21at 16:21; Start 01/04/21 at 16:15; Stop 01/04/21 at 16:16; Status DC Meropenem 500 mg/ Sodium Chloride 50 ml @ 100 mls/hr Q8HRS IV ; Start 01/04/21 at 18:00; Status Cancel Piperacillin Sod/ Tazobactam Sod 2.25 gm/Sodium Chloride 50 ml @ 100 mls/hr Q8HRS IV Last administered on 01/05/21at 06:15; Start 01/04/21 at 22:00 Linezolid/Dextrose 300 ml @ 300 mls/hr Q12HR IV Last administered on 01/05/21at 08:11; Start 01/04/21 at 21:00 Valproic Acid 500 mg/Dextrose 55 ml @ 55 mls/hr Q12HR IV Last administered on 01/05/21at 09:40; Start 01/05/21 at 09:00 Valproic Acid 1000 mg/Dextrose 60 ml @ 60 mls/hr 1X ONCE IV Last administered on 01/04/21at 19:30; Start 01/04/21 at 19:30; Stop 01/04/21 at 20:29; Status DC Lorazepam (Ativan Inj) 2 mg PRN Q2HRS PRN IVP ANXIETY / AGITATION Last administered on 01/05/21at 06:21; Start 01/04/21 at 19:30 Hydralazine HCl (Apresoline Inj) 10 mg PRN Q6HRS PRN IVP ELEVATED BP, SEE COMMENTS Last administered on 01/05/21at 08:11; Start 01/04/21 at 19:45 Amiodarone HCl 450 mg/Dextrose 259 ml @ 33 mls/hr CONT PRN IV SEE I/O RECORD Last administered on 01/04/21at 20:24; Start 01/04/21 at 20:15 Midazolam HCl 100 ml @ 1 mls/hr CONT PRN IV SEE I/O RECORD Last administered on 01/05/21at 02:00; Start 01/05/21 at 02:00 Active Scripts Active Pantoprazole Sodium (Pantoprazole Sodium) 40 Mg Tablet.dr 40 Mg PO BIDAC 30 Days Clopidogrel (Clopidogrel Bisulfate) 75 Mg Tablet 75 Mg PO DAILYWBKFT 75 Days Reported Voltaren (Diclofenac Sodium) 100 Gm Gel..gram. 1 Gm TP QID 30 Days apply to affected area(s) Oxycodone Hcl 5 Mg Capsule 5 Mg PO PRN Q6HRS PRN Nystatin 15 Gm Powder 1 Chio TP BID 7 Days apply to affected area(s) Ondansetron Odt (Ondansetron) 4 Mg Tab.rapdis 1 Tab PO PRN Q8HRS PRN Reglan (Metoclopramide Hcl) 10 Mg Tablet 1 Tab PO QID 30 Days before food and bedtime Losartan Potassium 100 Mg Tablet 100 Mg PO DAILY Aspirin 325 Mg Tablet 1 Tab PO DAILY Metformin Hcl 500 Mg Tablet 500 Mg PO BIDWMEALS Bumetanide 1 Mg Tablet 1 Mg PO BID Insulin Aspart 100 Unit/1 Ml Vial 60 Unit SQ TIDAC novolg flex pen Isosorbide Mononitrate Er (Isosorbide Mononitrate) 120 Mg Tab.er.24h 120 Mg PO DAILY NITROGLYCERIN SubLingual (Nitroglycerin) 0.4 Mg Tab.subl 0.4 Mg SL PRN Q5MIN PRN Albuterol Sulfate Neb Soln (Albuterol Sulfate) 2.5 Mg/3 Ml Vial.neb 2.5 Mg NEB Q4-6HRS PRN Levemir Flextouch (Insulin Detemir) 100 Unit/1 Ml Insuln.pen 60 Unit SQ HS Hydralazine Hcl 25 Mg Tablet 25 Mg PO BID Fluticasone Propionate Nasal [place] (Fluticasone Propionate) 16 Gm [place].susp 2 [place] NS DAILY Zolpidem Tartrate 5 Mg Tablet 5 Mg PO PRN QHS PRN Amlodipine Besylate 10 Mg Tablet 10 Mg PO DAILY Gabapentin 600 Mg Tablet 600 Mg PO BID Potassium Chloride (Potassium Chloride) 20 Meq Tablet.er 20 Meq PO BID Proair Respiclick (Albuterol Sulfate) 90 Mcg Aer.pow.ba 2 Puff IH PRN Q4-6HRS PRN Cyclobenzaprine Hcl 10 Mg Tablet 1 Tab PO BID PRN Requip (Ropinirole Hcl) 1 Mg Tablet 1 Tab PO QHS Crestor (Rosuvastatin Calcium) 20 Mg Tablet 20 Mg PO HS LAST DOSE: 10/01/15 BEDTIME NEXT DOSE: 10/02/15 BEDTIME Oxybutynin Chloride 5 Mg Tablet 1 Tab PO DAILY LAST DOSE: 10/02/15 AM NEXT DOSE: 10/03/15 AM Allergies Allergies: Coded Allergies: No Known Drug Allergies (Unverified , 08/03/20) ROS Review of System Unable to Obtain 2/2 Intubated/MV Physical Exam Physical Exam GENERAL: Intubated/MV HEENT: orally placed endotracheal tube. NECK: supple LUNGS: decreased at bases HEART: Distant heart sounds. ABD Marked obesity. EXTRE: No LE edema NEURO: sedated., Intubated Johnson + Vital Signs Vital Signs Date Time Temp Pulse Resp B/P (MAP) Pulse Ox O2 Delivery O2 Flow Rate FiO2 01/05/21 10:00 88 20 156/70 (98) 100 Ventilator 01/05/21 07:57 99.2 99.2 01/04/21 11:05 25.0 Assessment & Plan MIRIAM - ATN 2/2 Cardiopulmonary arrest, Non Oliguric , Stable renal function , K and bicarb stable Currently No emergent indication for dialysis , Supportive care , fluid balance , I/O, avoid nephrotoxins HyperNatremia - dc IV NS, Water flushes with TF UTI - UA cw UTI , defer to ID /Primary Acute hypoxemic hypercapnic respiratory failure Intubated/MV Suspected aspiration pneumonia. Cardiopulmonary arrest Coronary artery disease with recent percutaneous coronary intervention to the left anterior descending. Type 2 diabetes. Chronic obstructive pulmonary disease. Morbid obesity. Hypertension. Obstructive sleep apnea. Labs Labs Laboratory Tests Test 01/04/21 11:02 01/04/21 11:19 01/04/21 11:20 01/04/21 13:55 Sodium Level 151 mmol/L (136-145) Potassium Level 5.9 mmol/L (3.5-5.1) Chloride Level 112 mmol/L (98-107) Carbon Dioxide Level 34 mmol/L (21-32) Anion Gap 5 (6-14) Blood Urea Nitrogen 15 mg/dL (7-20) Creatinine 2.4 mg/dL (0.6-1.0) Estimated GFR (Cockcroft-Gault) 24.8 BUN/Creatinine Ratio 6 (6-20) Glucose Level 81 mg/dL (70-99) Calcium Level 9.5 mg/dL (8.5-10.1) Magnesium Level 2.3 mg/dL (1.8-2.4) Total Bilirubin 0.3 mg/dL (0.2-1.0) Aspartate Amino Transf (AST/SGOT) 29 U/L (15-37) Alanine Aminotransferase (ALT/SGPT) 19 U/L (14-59) Alkaline Phosphatase 101 U/L (46-116) Lactate Dehydrogenase 224 U/L (81-234) Troponin I Quantitative 0.639 ng/mL (0.000-0.055) PU-Aig-F-Type Natriuretic Peptide 5183 pg/mL (0-124) Total Protein 6.7 g/dL (6.4-8.2) Albumin 3.1 g/dL (3.4-5.0) Albumin/Globulin Ratio 0.9 (1.0-1.7) Thyroid Stimulating Hormone (TSH) 1.492 uIU/mL (0.358-3.74) O2 Saturation 99 % (92-99) Arterial Blood pH 7.20 (7.35-7.45) Arterial Blood pCO2 at Patient Temp 62 mmHg (35-46) Arterial Blood pO2 at Patient Temp 191 mmHg (65-108) Arterial Blood HCO3 24 mmol/L (21-28) Arterial Blood Base Excess -5 mmol/L (-3-3) Oxyhemoglobin 98.2 % Methemoglobin 0.5 % (0.0-1.9) Carbon Monoxide, Quantitative 0.1 % (0.0-1.9) FiO2 100 White Blood Count 15.8 x10^3/uL (4.0-11.0) Red Blood Count 4.89 x10^6/uL (3.50-5.40) Hemoglobin 12.1 g/dL (12.0-15.5) Hematocrit 38.6 % (36.0-47.0) Mean Corpuscular Volume 79 fL (79-100) Mean Corpuscular Hemoglobin 25 pg (25-35) Mean Corpuscular Hemoglobin Concent 31 g/dL (31-37) Red Cell Distribution Width 16.9 % (11.5-14.5) Platelet Count 349 x10^3/uL (140-400) Neutrophils (%) (Auto) 73 % (31-73) Lymphocytes (%) (Auto) 20 % (24-48) Monocytes (%) (Auto) 7 % (0-9) Eosinophils (%) (Auto) 0 % (0-3) Basophils (%) (Auto) 0 % (0-3) Neutrophils # (Auto) 11.5 x10^3/uL (1.8-7.7) Lymphocytes # (Auto) 3.1 x10^3/uL (1.0-4.8) Monocytes # (Auto) 1.1 x10^3/uL (0.0-1.1) Eosinophils # (Auto) 0.0 x10^3/uL (0.0-0.7) Basophils # (Auto) 0.1 x10^3/uL (0.0-0.2) Prothrombin Time 14.0 SEC (11.7-14.0) Prothromb Time International Ratio 1.1 (0.8-1.1) Activated Partial Thromboplast Time 32 SEC (24-38) Lactic Acid Level 3.9 mmol/L (0.4-2.0) SARS-CoV-2 Antigen (Rapid) Negative (NEGATIVE) Test 01/04/21 15:11 01/04/21 15:50 01/04/21 15:56 01/04/21 20:29 O2 Saturation 98 % (92-99) Arterial Blood pH 7.44 (7.35-7.45) Arterial Blood pCO2 at Patient Temp 37 mmHg (35-46) Arterial Blood pO2 at Patient Temp 102 mmHg (65-108) Arterial Blood HCO3 25 mmol/L (21-28) Arterial Blood Base Excess 1 mmol/L (-3-3) FiO2 60% vent Lactic Acid Level 2.2 mmol/L (0.4-2.0) Glucose (Fingerstick) 62 mg/dL (70-99) 108 mg/dL (70-99) Test 01/04/21 20:30 01/05/21 06:00 01/05/21 08:15 Urine Collection Type Unknown Urine Color Yellow Urine Clarity Clear Urine pH 5.5 (<5.0-8.0) Urine Specific [place] 1.025 (1.000-1.030) Urine Protein >=300 mg/dL (NEG-TRACE) Urine Glucose (UA) Negative mg/dL (NEG) Urine Ketones (Stick) Trace mg/dL (NEG) Urine Blood Large (NEG) Urine Nitrite Negative (NEG) Urine Bilirubin Small (NEG) Urine Urobilinogen Dipstick 0.2 mg/dL (0.2 mg/dL) Urine Leukocyte Esterase Negative (NEG) Urine RBC >40 /HPF (0-2) Urine WBC >40 /HPF (0-4) Urine Squamous Epithelial Cells Few /LPF Urine Bacteria Moderate /HPF (0-FEW) Urine Cellular Casts Few /HPF Urine Hyaline Casts Few /HPF Urine Granular Casts Few /HPF Urine Mucus Slight /LPF White Blood Count 13.0 x10^3/uL (4.0-11.0) Red Blood Count 4.53 x10^6/uL (3.50-5.40) Hemoglobin 11.0 g/dL (12.0-15.5) Hematocrit 34.9 % (36.0-47.0) Mean Corpuscular Volume 77 fL (79-100) Mean Corpuscular Hemoglobin 24 pg (25-35) Mean Corpuscular Hemoglobin Concent 32 g/dL (31-37) Red Cell Distribution Width 16.2 % (11.5-14.5) Platelet Count 219 x10^3/uL (140-400) Neutrophils (%) (Auto) 82 % (31-73) Lymphocytes (%) (Auto) 9 % (24-48) Monocytes (%) (Auto) 8 % (0-9) Eosinophils (%) (Auto) 0 % (0-3) Basophils (%) (Auto) 0 % (0-3) Neutrophils # (Auto) 10.7 x10^3/uL (1.8-7.7) Lymphocytes # (Auto) 1.2 x10^3/uL (1.0-4.8) Monocytes # (Auto) 1.0 x10^3/uL (0.0-1.1) Eosinophils # (Auto) 0.0 x10^3/uL (0.0-0.7) Basophils # (Auto) 0.1 x10^3/uL (0.0-0.2) Sodium Level 151 mmol/L (136-145) Potassium Level 3.9 mmol/L (3.5-5.1) Chloride Level 113 mmol/L (98-107) Carbon Dioxide Level 26 mmol/L (21-32) Anion Gap 12 (6-14) Blood Urea Nitrogen 17 mg/dL (7-20) Creatinine 2.1 mg/dL (0.6-1.0) Estimated GFR (Cockcroft-Gault) 28.9 BUN/Creatinine Ratio 8 (6-20) Glucose Level 109 mg/dL (70-99) Calcium Level 8.8 mg/dL (8.5-10.1) Phosphorus Level 3.7 mg/dL (2.6-4.7) Magnesium Level 2.2 mg/dL (1.8-2.4) Total Bilirubin 0.5 mg/dL (0.2-1.0) Aspartate Amino Transf (AST/SGOT) 49 U/L (15-37) Alanine Aminotransferase (ALT/SGPT) 18 U/L (14-59) Alkaline Phosphatase 87 U/L (46-116) Total Protein 6.3 g/dL (6.4-8.2) Albumin 2.2 g/dL (3.4-5.0) Albumin/Globulin Ratio 0.5 (1.0-1.7) O2 Saturation 99 % (92-99) Arterial Blood pH 7.45 (7.35-7.45) Arterial Blood pCO2 at Patient Temp 39 mmHg (35-46) Arterial Blood pO2 at Patient Temp 152 mmHg (65-108) Arterial Blood HCO3 27 mmol/L (21-28) Arterial Blood Base Excess 3 mmol/L (-3-3) FiO2 50 Laboratory Tests Test 01/04/21 11:19 01/04/21 11:20 01/04/21 13:55 01/04/21 15:11 O2 Saturation 99 % (92-99) 98 % (92-99) Arterial Blood pH 7.20 (7.35-7.45) 7.44 (7.35-7.45) Arterial Blood pCO2 at Patient Temp 62 mmHg (35-46) 37 mmHg (35-46) Arterial Blood pO2 at Patient Temp 191 mmHg (65-108) 102 mmHg (65-108) Arterial Blood HCO3 24 mmol/L (21-28) 25 mmol/L (21-28) Arterial Blood Base Excess -5 mmol/L (-3-3) 1 mmol/L (-3-3) Oxyhemoglobin 98.2 % Methemoglobin 0.5 % (0.0-1.9) Carbon Monoxide, Quantitative 0.1 % (0.0-1.9) FiO2 100 60% vent White Blood Count 15.8 x10^3/uL (4.0-11.0) Red Blood Count 4.89 x10^6/uL (3.50-5.40) Hemoglobin 12.1 g/dL (12.0-15.5) Hematocrit 38.6 % (36.0-47.0) Mean Corpuscular Volume 79 fL (79-100) Mean Corpuscular Hemoglobin 25 pg (25-35) Mean Corpuscular Hemoglobin Concent 31 g/dL (31-37) Red Cell Distribution Width 16.9 % (11.5-14.5) Platelet Count 349 x10^3/uL (140-400) Neutrophils (%) (Auto) 73 % (31-73) Lymphocytes (%) (Auto) 20 % (24-48) Monocytes (%) (Auto) 7 % (0-9) Eosinophils (%) (Auto) 0 % (0-3) Basophils (%) (Auto) 0 % (0-3) Neutrophils # (Auto) 11.5 x10^3/uL (1.8-7.7) Lymphocytes # (Auto) 3.1 x10^3/uL (1.0-4.8) Monocytes # (Auto) 1.1 x10^3/uL (0.0-1.1) Eosinophils # (Auto) 0.0 x10^3/uL (0.0-0.7) Basophils # (Auto) 0.1 x10^3/uL (0.0-0.2) Prothrombin Time 14.0 SEC (11.7-14.0) Prothromb Time International Ratio 1.1 (0.8-1.1) Activated Partial Thromboplast Time 32 SEC (24-38) Lactic Acid Level 3.9 mmol/L (0.4-2.0) SARS-CoV-2 Antigen (Rapid) Negative (NEGATIVE) Test 01/04/21 15:50 01/04/21 15:56 01/04/21 20:29 01/04/21 20:30 Lactic Acid Level 2.2 mmol/L (0.4-2.0) Glucose (Fingerstick) 62 mg/dL (70-99) 108 mg/dL (70-99) Urine Collection Type Unknown Urine Color Yellow Urine Clarity Clear Urine pH 5.5 (<5.0-8.0) Urine Specific [place] 1.025 (1.000-1.030) Urine Protein >=300 mg/dL (NEG-TRACE) Urine Glucose (UA) Negative mg/dL (NEG) Urine Ketones (Stick) Trace mg/dL (NEG) Urine Blood Large (NEG) Urine Nitrite Negative (NEG) Urine Bilirubin Small (NEG) Urine Urobilinogen Dipstick 0.2 mg/dL (0.2 mg/dL) Urine Leukocyte Esterase Negative (NEG) Urine RBC >40 /HPF (0-2) Urine WBC >40 /HPF (0-4) Urine Squamous Epithelial Cells Few /LPF Urine Bacteria Moderate /HPF (0-FEW) Urine Cellular Casts Few /HPF Urine Hyaline Casts Few /HPF Urine Granular Casts Few /HPF Urine Mucus Slight /LPF Test 01/05/21 06:00 01/05/21 08:15 White Blood Count 13.0 x10^3/uL (4.0-11.0) Red Blood Count 4.53 x10^6/uL (3.50-5.40) Hemoglobin 11.0 g/dL (12.0-15.5) Hematocrit 34.9 % (36.0-47.0) Mean Corpuscular Volume 77 fL (79-100) Mean Corpuscular Hemoglobin 24 pg (25-35) Mean Corpuscular Hemoglobin Concent 32 g/dL (31-37) Red Cell Distribution Width 16.2 % (11.5-14.5) Platelet Count 219 x10^3/uL (140-400) Neutrophils (%) (Auto) 82 % (31-73) Lymphocytes (%) (Auto) 9 % (24-48) Monocytes (%) (Auto) 8 % (0-9) Eosinophils (%) (Auto) 0 % (0-3) Basophils (%) (Auto) 0 % (0-3) Neutrophils # (Auto) 10.7 x10^3/uL (1.8-7.7) Lymphocytes # (Auto) 1.2 x10^3/uL (1.0-4.8) Monocytes # (Auto) 1.0 x10^3/uL (0.0-1.1) Eosinophils # (Auto) 0.0 x10^3/uL (0.0-0.7) Basophils # (Auto) 0.1 x10^3/uL (0.0-0.2) Sodium Level 151 mmol/L (136-145) Potassium Level 3.9 mmol/L (3.5-5.1) Chloride Level 113 mmol/L (98-107) Carbon Dioxide Level 26 mmol/L (21-32) Anion Gap 12 (6-14) Blood Urea Nitrogen 17 mg/dL (7-20) Creatinine 2.1 mg/dL (0.6-1.0) Estimated GFR (Cockcroft-Gault) 28.9 BUN/Creatinine Ratio 8 (6-20) Glucose Level 109 mg/dL (70-99) Calcium Level 8.8 mg/dL (8.5-10.1) Phosphorus Level 3.7 mg/dL (2.6-4.7) Magnesium Level 2.2 mg/dL (1.8-2.4) Total Bilirubin 0.5 mg/dL (0.2-1.0) Aspartate Amino Transf (AST/SGOT) 49 U/L (15-37) Alanine Aminotransferase (ALT/SGPT) 18 U/L (14-59) Alkaline Phosphatase 87 U/L (46-116) Total Protein 6.3 g/dL (6.4-8.2) Albumin 2.2 g/dL (3.4-5.0) Albumin/Globulin Ratio 0.5 (1.0-1.7) O2 Saturation 99 % (92-99) Arterial Blood pH 7.45 (7.35-7.45) Arterial Blood pCO2 at Patient Temp 39 mmHg (35-46) Arterial Blood pO2 at Patient Temp 152 mmHg (65-108) Arterial Blood HCO3 27 mmol/L (21-28) Arterial Blood Base Excess 3 mmol/L (-3-3) FiO2 50 Review All relevant outside records, renal labs, imaging studies, telemetry/EKG's were reviewed. Images Images CxR Reason for examination: Pneumonia. Comparison is made to previous study dated 01/04/2021. Endotracheal tube is present with the tip approximately 2 cm above the sukh. This should be withdrawn at least a centimeter. Central venous catheter tip is in the superior vena cava. NG tube is present with the tip below the hemidiaphragms in the stomach. Heart size and mediastinum are unchanged. Lung shelton show continued presence of interstitial opacities but there are also ar eas of consolidated infiltrates developing in the right perihilar and lower lobe distribution. No pleural effusions are seen. No pneumothorax is evident. No acute bony abnormalities are seen. IMPRESSION: Continued presence of interstitial changes bilaterally. Areas of consolidated infiltrates developing in the right perihilar and lower lobe distributions. RICK,RASHAAD MD Jan 05, 2021 11:27
[2021-01-05] MEDS: AMIODARONE 450 MG in IV DEXTROSE 5% 250 ML IV PRN (11:50)
[2021-01-05] MEDS: SCOPOLAMINE 1.5MG PATCH. TD SCH (16:23)
[2021-01-05] MEDS: DAPTOmycin (GENERIC) IVPB 600 MG in IV NORMAL SALINE 50ML 50 ML IV SCH (16:46)
[2021-01-05] MEDS ORDERED: DEXTROSE 50% 25 GM / 50ML DISP.SYRIN. IV PRN (18:15)
[2021-01-05] MEDS ORDERED: INSULIN LISPRO 300 UNITS/3 ML VIAL. SQ SCH (18:30)
--- NOTE | 2021-01-05 19:52 | PDOC ---
[facility] [facility] PROGRESS NOTE Date of Service DOS: DATE: 01/05/21 TIME: 19:50 Chief Complaint Chief Complaint Assessment/Plan Respiratory failure SUSPECT aspiration pneumonia Mild prominent interstitial lung markings likely mild congestive changes or interstitial infiltrates ACUTE STEMI CAD Extensive stenting of the LAD with the most significant area of restenosis being a 35% lesion in the mid vessel. Mild disease in the right coronary artery. Acute renal failure/ MIRIAM Hyperkalemia Aspiration pneumonia Altered mental status Sepsis MORBID OBESITY ADMITTED ICU BED Consult cardiology Nephrology consult ID CONSULT PULM CONSULT VENT SUPPORT DVT PROPHYLAXIS EMPERIC IV ANTIBIOTICS, Zosyn pending id consult Neurology consult History of Present Illness History of Present Illness 01/05/2021 No acute events overnight. Patient seen and examined bedside. Patient remains intubated. Without sedation. Vent settings at 18/450/40/5. Patient is not responding to painful stimuli at this time. There is a lot of secretions. Currently not on any vasopressors.> 50% time spent in patient chart, labs, and i maging review and in discussion with RN and SW 60 year old female w/ PMHx Asthma, CAD s/p stenting x6, CHF, COPD, Diabetes-Ty pe II, High Cholesterol, Hypertension, neuropathy, morbid obesity, RLS, insomnia who presented to ER in respiratory distress was brought here by EMS from home after she was found unresponsive in her bed by her family. Patient was last known normal was 9 AM yesterday. family tried to call her but could not get a hold of her so they show up to her house, found her unresponsive in her bed. Per family, patient had a CPAP machine on but the mask slid off her face, there was lot of mucus and material around her face and on her neck area. Patient was responsive to painful stimuli but was very confused, did not follow command. EMS were called, they found her in respiratory distress, GCS of 7-8, they bagged her and brought her here. Upon arrival to room, patient was unresponsive to verbal, severe respiratory distress, need emergent intubation. Her family stated that patient was seen here 2 days ago for epigastric abdominal pain. It was recommended that she need to stay in the hospital however patient did not want to stay in the hospital so she went home. AMA Vitals/I&O Vitals/I&O: Vital Signs Date Time Temp Pulse Resp B/P (MAP) Pulse Ox O2 Delivery O2 Flow Rate FiO2 01/05/21 19:00 93 19 146/56 (86) 98 Ventilator 01/05/21 16:00 99.4 99.4 01/04/21 11:05 25.0 I & O 01/04/21 01/04/21 01/05/21 15:00 23:00 07:00 Intake Total 100 ml 746 ml 1467 ml Output Total 225 ml 545 ml 510 ml Balance -125 ml 201 ml 957 ml Physical Exam General: Other Heart: Regular rate Lungs: Crackles Abdomen: Soft Extremities: Other (Trace edema) Labs Labs: Laboratory Tests Test 01/04/21 20:29 01/04/21 20:30 01/05/21 06:00 01/05/21 08:15 Glucose (Fingerstick) 108 mg/dL (70-99) Urine Collection Type Unknown Urine Color Yellow Urine Clarity Clear Urine pH 5.5 (<5.0-8.0) Urine Specific [place] 1.025 (1.000-1.030) Urine Protein >=300 mg/dL (NEG-TRACE) Urine Glucose (UA) Negative mg/dL (NEG) Urine Ketones (Stick) Trace mg/dL (NEG) Urine Blood Large (NEG) Urine Nitrite Negative (NEG) Urine Bilirubin Small (NEG) Urine Urobilinogen Dipstick 0.2 mg/dL (0.2 mg/dL) Urine Leukocyte Esterase Negative (NEG) Urine RBC >40 /HPF (0-2) Urine WBC >40 /HPF (0-4) Urine Squamous Epithelial Cells Few /LPF Urine Bacteria Moderate /HPF (0-FEW) Urine Cellular Casts Few /HPF Urine Hyaline Casts Few /HPF Urine Granular Casts Few /HPF Urine Mucus Slight /LPF White Blood Count 13.0 x10^3/uL (4.0-11.0) Red Blood Count 4.53 x10^6/uL (3.50-5.40) Hemoglobin 11.0 g/dL (12.0-15.5) Hematocrit 34.9 % (36.0-47.0) Mean Corpuscular Volume 77 fL (79-100) Mean Corpuscular Hemoglobin 24 pg (25-35) Mean Corpuscular Hemoglobin Concent 32 g/dL (31-37) Red Cell Distribution Width 16.2 % (11.5-14.5) Platelet Count 219 x10^3/uL (140-400) Neutrophils (%) (Auto) 82 % (31-73) Lymphocytes (%) (Auto) 9 % (24-48) Monocytes (%) (Auto) 8 % (0-9) Eosinophils (%) (Auto) 0 % (0-3) Basophils (%) (Auto) 0 % (0-3) Neutrophils # (Auto) 10.7 x10^3/uL (1.8-7.7) Lymphocytes # (Auto) 1.2 x10^3/uL (1.0-4.8) Monocytes # (Auto) 1.0 x10^3/uL (0.0-1.1) Eosinophils # (Auto) 0.0 x10^3/uL (0.0-0.7) Basophils # (Auto) 0.1 x10^3/uL (0.0-0.2) Sodium Level 151 mmol/L (136-145) Potassium Level 3.9 mmol/L (3.5-5.1) Chloride Level 113 mmol/L (98-107) Carbon Dioxide Level 26 mmol/L (21-32) Anion Gap 12 (6-14) Blood Urea Nitrogen 17 mg/dL (7-20) Creatinine 2.1 mg/dL (0.6-1.0) Estimated GFR (Cockcroft-Gault) 28.9 BUN/Creatinine Ratio 8 (6-20) Glucose Level 109 mg/dL (70-99) Calcium Level 8.8 mg/dL (8.5-10.1) Phosphorus Level 3.7 mg/dL (2.6-4.7) Magnesium Level 2.2 mg/dL (1.8-2.4) Total Bilirubin 0.5 mg/dL (0.2-1.0) Aspartate Amino Transf (AST/SGOT) 49 U/L (15-37) Alanine Aminotransferase (ALT/SGPT) 18 U/L (14-59) Alkaline Phosphatase 87 U/L (46-116) Creatine Kinase 682 U/L (26-192) Total Protein 6.3 g/dL (6.4-8.2) Albumin 2.2 g/dL (3.4-5.0) Albumin/Globulin Ratio 0.5 (1.0-1.7) O2 Saturation 99 % (92-99) Arterial Blood pH 7.45 (7.35-7.45) Arterial Blood pCO2 at Patient Temp 39 mmHg (35-46) Arterial Blood pO2 at Patient Temp 152 mmHg (65-108) Arterial Blood HCO3 27 mmol/L (21-28) Arterial Blood Base Excess 3 mmol/L (-3-3) FiO2 50 Test 01/05/21 11:31 01/05/21 18:13 Glucose (Fingerstick) 148 mg/dL (70-99) 152 mg/dL (70-99) Assessment and Plan Assessmemt and Plan Problems Medical Problems: (1) Acute renal failure Status: Acute (2) Altered mental status Status: Acute (3) Aspiration pneumonia Status: Acute (4) Hyperkalemia Status: Acute (5) Respiratory failure Status: Acute (6) Sepsis Status: Acute Comment Review of Relevant I have reviewed the following items shady (where applicable) has been applied. Medications: Current Medications Medications (Trade) Dose Ordered Sig/Lui Route PRN Reason Start Time Stop Time Status Last Admin Dose Admin Famotidine (Pepcid Vial) 20 mg QHS IVP 01/04/21 21:00 01/04/21 21:30 Piperacillin Sod/ Tazobactam Sod 2.25 gm/Sodium Chloride 50 ml @ 100 mls/hr Q8HRS IV 01/04/21 22:00 01/05/21 13:03 Linezolid/Dextrose 300 ml @ 300 mls/hr Q12HR IV 01/04/21 21:00 01/05/21 08:11 Valproic Acid 500 mg/Dextrose 55 ml @ 55 mls/hr Q12HR IV 01/05/21 09:00 01/05/21 17:28 DC 01/05/21 09:40 Amiodarone HCl 450 mg/Dextrose 259 ml @ 33 mls/hr CONT PRN IV SEE I/O RECORD 01/04/21 20:15 01/05/21 11:50 DC 01/05/21 11:50 Midazolam HCl 100 ml @ 1 mls/hr CONT PRN IV SEE I/O RECORD 01/05/21 02:00 01/05/21 02:00 Daptomycin 600 mg/ Sodium Chloride 50 ml @ 100 mls/hr Q48H IV 01/05/21 16:00 01/05/21 16:46 Scopolamine (Transderm-Scop) 1 patch Q3DAYS TD 01/05/21 17:00 01/05/21 16:23 Insulin Human Lispro (HumaLOG) 0-5 UNITS TIDWMEALS SQ 01/05/21 18:30 01/05/21 18:27 Justifications for Admission Other Justification cardiac arrest MARK ENCISO MD Jan 05, 2021 19:52
--- NOTE | 2021-01-05 20:05 | RAD ---
Examination: Bilateral venous Doppler Indication: Leg swelling Technique: Ultrasound evaluation of the bilateral lower extremities was performed from the groin to t he upper calf with cadena scale, spectral and color doppler evaluation. Comparison: None Findings: There is normal venous flow and compressibility of bilateral common femoral veins, femoral veins, popliteal veins, and visualized proximal calf veins. Impression: No evidence for deep vein thrombosis of bilateral lower extremities from the level of the calf veins to the groins. Electronically signed by: Pravin Pineda MD (01/05/2021 8:02 PM) [facility]
--- NOTE | 2021-01-05 21:00 | PDOC2 ---
CONSULT Date of Consult Date of Consult DATE: 01/05/21 TIME: 20:58 Reason for Consult Reason for Consult: AMS Identification/Chief Complaint Chief Complaint AMS History of Present Illness Reason for Visit: This patient is 60-year-old woman with past medical history of multiple medical problems history of asthma coronary artery disease status post stenting multiple times chronic obstructive pulmonary disease congestive heart failure morbid obesity presented to emergency room with respiratory distress. Patient was brought via EMS she was found unresponsive by her family patient not feeling well for over 2 days prior to presentation. Patient was found unresponsive at home. Patient was intubated. Patient had a CT brain done did not show any e vidence of acute intracranial etiology no evidence of acute hemorrhage or mass. No evidence of hydrocephalus changes noted for chronic small vessel ischemic disease. Past Medical History Cardiovascular: CAD, CHF, HTN, Hyperlipidemia Pulmonary: COPD, Other CENTRAL NERVOUS SYSTEM: Periperal neuropathy GI: Irritable bowel disease Heme/Onc: Iron deficiency Anemia Hepatobiliary: No pertinent hx Psych: Anxiety, Depression Musculoskeletal: Osteoarthritis Rheumatologic: No pertinent hx Infectious disease: No pertinent hx Renal/: Chronic renal insuff Endocrine: Diabetes Past Surgical History Past Surgical History: Other Family History Family History: Diabetes, Hypertension Social History No ALCOHOL: rare Drugs: None Lives: with Family Current Problem List Problem List Problems Medical Problems: (1) Acute renal failure Status: Acute (2) Altered mental status Status: Acute (3) Aspiration pneumonia Status: Acute (4) Hyperkalemia Status: Acute (5) Respiratory failure Status: Acute (6) Sepsis Status: Acute Current Medications Current Medications Current Medications Amiodarone HCl 450 mg/Dextrose 259 ml @ 33 mls/hr 1X ONCE IV Last administered on 01/04/21at 11:40; Start 01/04/21 at 11:15; Stop 01/04/21 at 19:05; Status DC Midazolam HCl 100 ml @ 1 mls/hr 1X ONCE IV Last administered on 01/04/21at 11:39; Start 01/04/21 at 11:30; Stop 01/05/21 at 09:51; Status DC Sodium Chloride 1,000 ml @ 1,000 mls/hr 1X ONCE IV Last administered on 01/04/21at 12:13; Start 01/04/21 at 11:45; Stop 01/04/21 at 12:44; Status DC Sodium Bicarbonate (Sodium Bicarb Adult 8.4% Syr) 50 meq 1X ONCE IV Last administered on 01/04/21at 12:55; Start 01/04/21 at 12:00; Stop 01/04/21 at 12:01; Status DC Dextrose (Dextrose 50%-Water Syringe) 25 gm 1X ONCE IV Last administered on 01/04/21at 12:53; Start 01/04/21 at 12:00; Stop 01/04/21 at 12:01; Status DC Insulin Human Regular (HumuLIN R VIAL) 10 unit 1X ONCE IV Last administered on 01/04/21at 12:52; Start 01/04/21 at 12:00; Stop 01/04/21 at 12:01; Status DC Piperacillin Sod/ Tazobactam Sod 3.375 gm/Sodium Chloride 50 ml @ 100 mls/hr 1X ONCE IV Last administered on 01/04/21at 12:12; Start 01/04/21 at 12:00; Stop 01/04/21 at 12:29; Status DC Succinylcholine Chloride (Anectine) 100 mg 1X ONCE IV Last administered on 01/04/21at 11:03; Start 01/04/21 at 12:45; Stop 01/04/21 at 12:46; Status DC Etomidate (Amidate) 20 mg 1X ONCE IV Last administered on 01/04/21at 11:02; Start 01/04/21 at 12:45; Stop 01/04/21 at 12:46; Status DC Rocuronium [place] (Zemuron) 100 mg 1X ONCE IV ; Start 01/04/21 at 12:45; Stop 01/04/21 at 12:46; Status Cancel Midazolam HCl (Versed) 5 mg 1X ONCE IV Last administered on 01/04/21at 11:30; Start 01/04/21 at 12:45; Stop 01/04/21 at 12:46; Status DC Rocuronium [place] (Zemuron) 100 mg 1X ONCE IV Last administered on 01/04/21at 11:33; Start 01/04/21 at 12:45; Stop 01/04/21 at 12:46; Status DC Ondansetron HCl (Zofran) 4 mg PRN Q8HRS PRN IV NAUSEA/VOMITING; Start 01/04/21 at 13:00; Stop 01/05/21 at 09:48; Status DC Sodium Chloride 1,000 ml @ 100 mls/hr Q10H IV Last administered on 01/05/21at 09:41; Start 01/04/21 at 13:00; Stop 01/05/21 at 12:59; Status DC Ondansetron HCl (Zofran) 4 mg PRN Q6HRS PRN IVP NAUSEA/VOMITING; Start 01/04/21 at 14:00 Famotidine (Pepcid Vial) 20 mg QHS IVP Last administered on 01/04/21at 21:30; Start 01/04/21 at 21:00 Heparin Sodium (Porcine) (Heparin Sodium) 5,000 unit Q8HRS SQ Last administered on 01/05/21at 13:03; Start 01/04/21 at 14:00 Sodium Chloride (Normal Saline Flush) 3 ml QSHIFT PRN IV AFTER MEDS AND BLOOD DRAWS; Start 01/04/21 at 14:00 Bisacodyl (Dulcolax Supp) 10 mg PRN DAILY PRN OK CONSTIPATION; Start 01/04/21 at 14:00 Piperacillin Sod/ Tazobactam Sod (Zosyn Per Pharmacy) 1 each PRN DAILY PRN MC SEE COMMENTS; Start 01/04/21 at 14:00; Stop 01/04/21 at 17:48; Status DC Piperacillin Sod/ Tazobactam Sod 2.25 gm/Sodium Chloride 50 ml @ 100 mls/hr Q6HRS IV ; Start 01/04/21 at 18:00; Stop 01/04/21 at 17:49; Status DC Dextrose (Dextrose 50%-Water Syringe) 25 gm 1X ONCE IV Last administered on 01/04/21at 16:21; Start 01/04/21 at 16:15; Stop 01/04/21 at 16:16; Status DC Meropenem 500 mg/ Sodium Chloride 50 ml @ 100 mls/hr Q8HRS IV ; Start 01/04/21 at 18:00; Status Cancel Piperacillin Sod/ Tazobactam Sod 2.25 gm/Sodium Chloride 50 ml @ 100 mls/hr Q8HRS IV Last administered on 01/05/21at 13:03; Start 01/04/21 at 22:00 Linezolid/Dextrose 300 ml @ 300 mls/hr Q12HR IV Last administered on 01/05/21at 08:11; Start 01/04/21 at 21:00 Valproic Acid 500 mg/Dextrose 55 ml @ 55 mls/hr Q12HR IV Last administered on 01/05/21at 09:40; Start 01/05/21 at 09:00; Stop 01/05/21 at 17:28; Status DC Valproic Acid 1000 mg/Dextrose 60 ml @ 60 mls/hr 1X ONCE IV Last administered on 01/04/21at 19:30; Start 01/04/21 at 19:30; Stop 01/04/21 at 20:29; Status DC Lorazepam (Ativan Inj) 2 mg PRN Q2HRS PRN IVP ANXIETY / AGITATION Last administered on 01/05/21at 06:21; Start 01/04/21 at 19:30 Hydralazine HCl (Apresoline Inj) 10 mg PRN Q6HRS PRN IVP ELEVATED BP, SEE COMMENTS Last administered on 01/05/21at 15:23; Start 01/04/21 at 19:45 Amiodarone HCl 450 mg/Dextrose 259 ml @ 33 mls/hr CONT PRN IV SEE I/O RECORD Last administered on 01/05/21at 11:50; Start 01/04/21 at 20:15; Stop 01/05/21 at 11:50; Status DC Midazolam HCl 100 ml @ 1 mls/hr CONT PRN IV SEE I/O RECORD Last administered on 01/05/21at 02:00; Start 01/05/21 at 02:00 Daptomycin 600 mg/ Sodium Chloride 50 ml @ 100 mls/hr Q48H IV Last ad ministered on 01/05/21at 16:46; Start 01/05/21 at 16:00 Scopolamine (Transderm-Scop) 1 patch Q3DAYS TD Last administered on 01/05/21at 16:23; Start 01/05/21 at 17:00 Valproic Acid 750 mg/Dextrose 57.5 ml @ 57.5 mls/hr Q12HR IV ; Start 01/05/21 at 21:00 Insulin Human Lispro (HumaLOG) 0-5 UNITS TIDWMEALS SQ Last administered on 01/05/21at 18:27; Start 01/05/21 at 18:30 Dextrose (Dextrose 50%-Water Syringe) 12.5 gm PRN Q15MIN PRN IV SEE COMMENTS; Start 01/05/21 at 18:15 Active Scripts Active Pantoprazole Sodium (Pantoprazole Sodium) 40 Mg Tablet.dr 40 Mg PO BIDAC 30 Days Clopidogrel (Clopidogrel Bisulfate) 75 Mg Tablet 75 Mg PO DAILYWBKFT 75 Days Reported Voltaren (Diclofenac Sodium) 100 Gm Gel..gram. 1 Gm TP QID 30 Days apply to affected area(s) Oxycodone Hcl 5 Mg Capsule 5 Mg PO PRN Q6HRS PRN Nystatin 15 Gm Powder 1 [place] TP BID 7 Days apply to affected area(s) Ondansetron Odt (Ondansetron) 4 Mg Tab.rapdis 1 Tab PO PRN Q8HRS PRN Reglan (Metoclopramide Hcl) 10 Mg Tablet 1 Tab PO QID 30 Days before food and bedtime Losartan Potassium 100 Mg Tablet 100 Mg PO DAILY Aspirin 325 Mg Tablet 1 Tab PO DAILY Metformin Hcl 500 Mg Tablet 500 Mg PO BIDWMEALS Bumetanide 1 Mg Tablet 1 Mg PO BID Insulin Aspart 100 Unit/1 Ml Vial 60 Unit SQ TIDAC novolg flex pen Isosorbide Mononitrate Er (Isosorbide Mononitrate) 120 Mg Tab.er.24h 120 Mg PO DAILY NITROGLYCERIN SubLingual (Nitroglycerin) 0.4 Mg Tab.subl 0.4 Mg SL PRN Q5MIN PRN Albuterol Sulfate Neb Soln (Albuterol Sulfate) 2.5 Mg/3 Ml Vial.neb 2.5 Mg NEB Q4-6HRS PRN Levemir Flextouch (Insulin Detemir) 100 Unit/1 Ml Insuln.pen 60 Unit SQ HS Hydralazine Hcl 25 Mg Tablet 25 Mg PO BID Fluticasone Propionate Nasal [place] (Fluticasone Propionate) 16 Gm [place].susp 2 [place] NS DAILY Zolpidem Tartrate 5 Mg Tablet 5 Mg PO PRN QHS PRN Amlodipine Besylate 10 Mg Tablet 10 Mg PO DAILY Gabapentin 600 Mg Tablet 600 Mg PO BID Potassium Chloride (Potassium Chloride) 20 Meq Tablet.er 20 Meq PO BID Proair Respiclick (Albuterol Sulfate) 90 Mcg Aer.pow.ba 2 Puff IH PRN Q4-6HRS PRN Cyclobenzaprine Hcl 10 Mg Tablet 1 Tab PO BID PRN Requip (Ropinirole Hcl) 1 Mg Tablet 1 Tab PO QHS Crestor (Rosuvastatin Calcium) 20 Mg Tablet 20 Mg PO HS LAST DOSE: 10/01/15 BEDTIME NEXT DOSE: 10/02/15 BEDTIME Oxybutynin Chloride 5 Mg Tablet 1 Tab PO DAILY LAST DOSE: 10/02/15 AM NEXT DOSE: 10/03/15 AM Allergies Allergies: Coded Allergies: No Known Drug Allergies (Unverified , 08/03/20) Physical Exam Physical Exam PHYSICAL EXAMINATION: General: In acute distress. HEENT: Normal cephalic and non traumatic. Neck: No lymphadenopathy. No resistance. Cardiac: S1, S2, regular rate and rhythm. Pulmonary: On vent. Abdomen: Bowel sounds are normal. NEUROLOGICAL EXAMINATION: On vent. Unresponsiveness. Pupils 1 mm, decreased reaction to light stimuli. EOMI not elicited. CN: No acute findings. Neck: No resistance Muscle Tone: decreased. Muscle Strength: minimal movements noted to stimuli. DTR: 0-1 Sensory: Minimal response to pain stimuli. Plantar Reflex: No response bilaterally Cerebellar Signs: Not able Gait: Not able . Vitals VITALS Vital Signs Date Time Temp Pulse Resp B/P (MAP) Pulse Ox O2 Delivery O2 Flow Rate FiO2 01/05/21 20:03 98 Ventilator 01/05/21 20:00 99.7 91 18 133/58 (83) 99.7 01/04/21 11:05 25.0 Labs Labs Laboratory Tests Test 01/04/21 11:02 01/04/21 11:19 01/04/21 11:20 01/04/21 12:00 Sodium Level 151 mmol/L (136-145) Potassium Level 5.9 mmol/L (3.5-5.1) Chloride Level 112 mmol/L (98-107) Carbon Dioxide Level 34 mmol/L (21-32) Anion Gap 5 (6-14) Blood Urea Nitrogen 15 mg/dL (7-20) Creatinine 2.4 mg/dL (0.6-1.0) Estimated GFR (Cockcroft-Gault) 24.8 BUN/Creatinine Ratio 6 (6-20) Glucose Level 81 mg/dL (70-99) Calcium Level 9.5 mg/dL (8.5-10.1) Magnesium Level 2.3 mg/dL (1.8-2.4) Total Bilirubin 0.3 mg/dL (0.2-1.0) Aspartate Amino Transf (AST/SGOT) 29 U/L (15-37) Alanine Aminotransferase (ALT/SGPT) 19 U/L (14-59) Alkaline Phosphatase 101 U/L (46-116) Lactate Dehydrogenase 224 U/L (81-234) Troponin I Quantitative 0.639 ng/mL (0.000-0.055) YD-Ytl-Q-Type Natriuretic Peptide 5183 pg/mL (0-124) Total Protein 6.7 g/dL (6.4-8.2) Albumin 3.1 g/dL (3.4-5.0) Albumin/Globulin Ratio 0.9 (1.0-1.7) Thyroid Stimulating Hormone (TSH) 1.492 uIU/mL (0.358-3.74) O2 Saturation 99 % (92-99) Arterial Blood pH 7.20 (7.35-7.45) Arterial Blood pCO2 at Patient Temp 62 mmHg (35-46) Arterial Blood pO2 at Patient Temp 191 mmHg (65-108) Arterial Blood HCO3 24 mmol/L (21-28) Arterial Blood Base Excess -5 mmol/L (-3-3) Oxyhemoglobin 98.2 % Methemoglobin 0.5 % (0.0-1.9) Carbon Monoxide, Quantitative 0.1 % (0.0-1.9) FiO2 100 White Blood Count 15.8 x10^3/uL (4.0-11.0) Red Blood Count 4.89 x10^6/uL (3.50-5.40) Hemoglobin 12.1 g/dL (12.0-15.5) Hematocrit 38.6 % (36.0-47.0) Mean Corpuscular Volume 79 fL (79-100) Mean Corpuscular Hemoglobin 25 pg (25-35) Mean Corpuscular Hemoglobin Concent 31 g/dL (31-37) Red Cell Distribution Width 16.9 % (11.5-14.5) Platelet Count 349 x10^3/uL (140-400) Neutrophils (%) (Auto) 73 % (31-73) Lymphocytes (%) (Auto) 20 % (24-48) Monocytes (%) (Auto) 7 % (0-9) Eosinophils (%) (Auto) 0 % (0-3) Basophils (%) (Auto) 0 % (0-3) Neutrophils # (Auto) 11.5 x10^3/uL (1.8-7.7) Lymphocytes # (Auto) 3.1 x10^3/uL (1.0-4.8) Monocytes # (Auto) 1.1 x10^3/uL (0.0-1.1) Eosinophils # (Auto) 0.0 x10^3/uL (0.0-0.7) Basophils # (Auto) 0.1 x10^3/uL (0.0-0.2) Prothrombin Time 14.0 SEC (11.7-14.0) Prothromb Time International Ratio 1.1 (0.8-1.1) Activated Partial Thromboplast Time 32 SEC (24-38) Lactic Acid Level 3.9 mmol/L (0.4-2.0) Coronavirus (COVID-19)(PCR) Negative (NEGATIVE) Test 01/04/21 13:55 01/04/21 15:11 01/04/21 15:50 01/04/21 15:56 SARS-CoV-2 Antigen (Rapid) Negative (NEGATIVE) O2 Saturation 98 % (92-99) Arterial Blood pH 7.44 (7.35-7.45) Arterial Blood pCO2 at Patient Temp 37 mmHg (35-46) Arterial Blood pO2 at Patient Temp 102 mmHg (65-108) Arterial Blood HCO3 25 mmol/L (21-28) Arterial Blood Base Excess 1 mmol/L (-3-3) FiO2 60% vent Lactic Acid Level 2.2 mmol/L (0.4-2.0) Glucose (Fingerstick) 62 mg/dL (70-99) Test 01/04/21 20:29 01/04/21 20:30 01/05/21 06:00 01/05/21 08:15 Glucose (Fingerstick) 108 mg/dL (70-99) Urine Collection Type Unknown Urine Color Yellow Urine Clarity Clear Urine pH 5.5 (<5.0-8.0) Urine Specific [place] 1.025 (1.000-1.030) Urine Protein >=300 mg/dL (NEG-TRACE) Urine Glucose (UA) Negative mg/dL (NEG) Urine Ketones (Stick) Trace mg/dL (NEG) Urine Blood Large (NEG) Urine Nitrite Negative (NEG) Urine Bilirubin Small (NEG) Urine Urobilinogen Dipstick 0.2 mg/dL (0.2 mg/dL) Urine Leukocyte Esterase Negative (NEG) Urine RBC >40 /HPF (0-2) Urine WBC >40 /HPF (0-4) Urine Squamous Epithelial Cells Few /LPF Urine Bacteria Moderate /HPF (0-FEW) Urine Cellular Casts Few /HPF Urine Hyaline Casts Few /HPF Urine Granular Casts Few /HPF Urine Mucus Slight /LPF White Blood Count 13.0 x10^3/uL (4.0-11.0) Red Blood Count 4.53 x10^6/uL (3.50-5.40) Hemoglobin 11.0 g/dL (12.0-15.5) Hematocrit 34.9 % (36.0-47.0) Mean Corpuscular Volume 77 fL (79-100) Mean Corpuscular Hemoglobin 24 pg (25-35) Mean Corpuscular Hemoglobin Concent 32 g/dL (31-37) Red Cell Distribution Width 16.2 % (11.5-14.5) Platelet Count 219 x10^3/uL (140-400) Neutrophils (%) (Auto) 82 % (31-73) Lymphocytes (%) (Auto) 9 % (24-48) Monocytes (%) (Auto) 8 % (0-9) Eosinophils (%) (Auto) 0 % (0-3) Basophils (%) (Auto) 0 % (0-3) Neutrophils # (Auto) 10.7 x10^3/uL (1.8-7.7) Lymphocytes # (Auto) 1.2 x10^3/uL (1.0-4.8) Monocytes # (Auto) 1.0 x10^3/uL (0.0-1.1) Eosinophils # (Auto) 0.0 x10^3/uL (0.0-0.7) Basophils # (Auto) 0.1 x10^3/uL (0.0-0.2) Sodium Level 151 mmol/L (136-145) Potassium Level 3.9 mmol/L (3.5-5.1) Chloride Level 113 mmol/L (98-107) Carbon Dioxide Level 26 mmol/L (21-32) Anion Gap 12 (6-14) Blood Urea Nitrogen 17 mg/dL (7-20) Creatinine 2.1 mg/dL (0.6-1.0) Estimated GFR (Cockcroft-Gault) 28.9 BUN/Creatinine Ratio 8 (6-20) Glucose Level 109 mg/dL (70-99) Calcium Level 8.8 mg/dL (8.5-10.1) Phosphorus Level 3.7 mg/dL (2.6-4.7) Magnesium Level 2.2 mg/dL (1.8-2.4) Total Bilirubin 0.5 mg/dL (0.2-1.0) Aspartate Amino Transf (AST/SGOT) 49 U/L (15-37) Alanine Aminotransferase (ALT/SGPT) 18 U/L (14-59) Alkaline Phosphatase 87 U/L (46-116) Creatine Kinase 682 U/L (26-192) Total Protein 6.3 g/dL (6.4-8.2) Albumin 2.2 g/dL (3.4-5.0) Albumin/Globulin Ratio 0.5 (1.0-1.7) O2 Saturation 99 % (92-99) Arterial Blood pH 7.45 (7.35-7.45) Arterial Blood pCO2 at Patient Temp 39 mmHg (35-46) Arterial Blood pO2 at Patient Temp 152 mmHg (65-108) Arterial Blood HCO3 27 mmol/L (21-28) Arterial Blood Base Excess 3 mmol/L (-3-3) FiO2 50 Test 01/05/21 11:31 01/05/21 18:13 Glucose (Fingerstick) 148 mg/dL (70-99) 152 mg/dL (70-99) Laboratory Tests Test 01/05/21 06:00 01/05/21 08:15 01/05/21 11:31 01/05/21 18:13 White Blood Count 13.0 x10^3/uL (4.0-11.0) Red Blood Count 4.53 x10^6/uL (3.50-5.40) Hemoglobin 11.0 g/dL (12.0-15.5) Hematocrit 34.9 % (36.0-47.0) Mean Corpuscular Volume 77 fL (79-100) Mean Corpuscular Hemoglobin 24 pg (25-35) Mean Corpuscular Hemoglobin Concent 32 g/dL (31-37) Red Cell Distribution Width 16.2 % (11.5-14.5) Platelet Count 219 x10^3/uL (140-400) Neutrophils (%) (Auto) 82 % (31-73) Lymphocytes (%) (Auto) 9 % (24-48) Monocytes (%) (Auto) 8 % (0-9) Eosinophils (%) (Auto) 0 % (0-3) Basophils (%) (Auto) 0 % (0-3) Neutrophils # (Auto) 10.7 x10^3/uL (1.8-7.7) Lymphocytes # (Auto) 1.2 x10^3/uL (1.0-4.8) Monocytes # (Auto) 1.0 x10^3/uL (0.0-1.1) Eosinophils # (Auto) 0.0 x10^3/uL (0.0-0.7) Basophils # (Auto) 0.1 x10^3/uL (0.0-0.2) Sodium Level 151 mmol/L (136-145) Potassium Level 3.9 mmol/L (3.5-5.1) Chloride Level 113 mmol/L (98-107) Carbon Dioxide Level 26 mmol/L (21-32) Anion Gap 12 (6-14) Blood Urea Nitrogen 17 mg/dL (7-20) Creatinine 2.1 mg/dL (0.6-1.0) Estimated GFR (Cockcroft-Gault) 28.9 BUN/Creatinine Ratio 8 (6-20) Glucose Level 109 mg/dL (70-99) Calcium Level 8.8 mg/dL (8.5-10.1) Phosphorus Level 3.7 mg/dL (2.6-4.7) Magnesium Level 2.2 mg/dL (1.8-2.4) Total Bilirubin 0.5 mg/dL (0.2-1.0) Aspartate Amino Transf (AST/SGOT) 49 U/L (15-37) Alanine Aminotransferase (ALT/SGPT) 18 U/L (14-59) Alkaline Phosphatase 87 U/L (46-116) Creatine Kinase 682 U/L (26-192) Total Protein 6.3 g/dL (6.4-8.2) Albumin 2.2 g/dL (3.4-5.0) Albumin/Globulin Ratio 0.5 (1.0-1.7) O2 Saturation 99 % (92-99) Arterial Blood pH 7.45 (7.35-7.45) Arterial Blood pCO2 at Patient Temp 39 mmHg (35-46) Arterial Blood pO2 at Patient Temp 152 mmHg (65-108) Arterial Blood HCO3 27 mmol/L (21-28) Arterial Blood Base Excess 3 mmol/L (-3-3) FiO2 50 Glucose (Fingerstick) 148 mg/dL (70-99) 152 mg/dL (70-99) Assessment/Plan Assessment/Plan This patient is 60-year-old woman with past medical history of multiple medical problems history of asthma coronary artery disease status post stenting multiple times chronic obstructive pulmonary disease congestive heart failure morbid obesity presented to emergency room with respiratory distress. Patient was b rought via EMS she was found unresponsive by her family patient not feeling well for over 2 days prior to presentation. Patient was found unresponsive at home. Patient was intubated. Patient had a CT brain done did not show any evidence of acute intracranial etiology no evidence of acute hemorrhage or mass. No evidence of hydrocephalus changes noted for chronic small vessel ischemic disease. With the multiple medical problems with respiratory failure standing, coronary artery disease, renal failure, encephalopathy check for infectious metabolic etiology, concern for anoxic injury, aspiration pneumonia on antibiotics Patient had a CT brain done did not show any evidence of acute intracranial etiology no evidence of acute hemorrhage or mass. No evidence of hydrocephalus changes noted for chronic small vessel ischemic disease.MRI of brain cannot be done due to current medical condition. Continue medical management Thank you for allowing me to take part in this patient's care. Please not hesitate to contact me with questions. Transcribed using dictation device. The dictation could contain irregularities inherent in the voice to text conversion software, which may not be detected during the document review process. Please contact our office in case of any confusion or for any clarification, as needed. KADI MILLER MD Jan 05, 2021 21:00
[2021-01-05] MEDS: VALPROIC ACID (AS SODIUM SALT) 750 MG in IV DEXTROSE 5% 50 ML IV SCH (21:11)
[2021-01-05] MEDS: FAMOTIDINE 20 MG/2 ML VIAL IVP SCH (21:11)
--- NOTE | 2021-01-05 21:56 | CONS ---
DATE OF CONSULTATION: 01/05/2021 REFERRING PHYSICIAN: Mino Cabral MD REASON FOR CONSULTATION: Sepsis, antibiotic management. HISTORY OF PRESENT ILLNESS: A 60-year-old female who was brought to the ER from home after she was found unresponsive by her family. The patient was in her normal health 9:00 a.m. the day prior. History obtained from chart and medical staff. The patient is currently intubated in ICU. The patient was found to have vomitus material and lot of mucus around her face and her neck area. The patient had CPAP machine on her when she was found in the above state. The patient did not follow any commands. She was in respiratory distress. Upon arrival to the ER, the patient underwent emergent intubation. It appeared that the patient had abdominal pain 2 days prior to admission along with heartburn. The patient was seen in the ER. She was hypertensive. Cardiac pain was attributed to possible esophageal spasm. The patient was advised admission, but she decided to go home instead and followup for her "surgery" in January. The patient became unresponsive. There was a cardiopulmonary arrest. Her pH was 7.20, pCO2 of 62, pO2 of 191 and bicarb of 24. The patient was started on IV fluids. White count was elevated at 15.8. Lactate was 3.9. Creatinine was elevated at 2.4. Sodium of 151, potassium of 5.9. BNP of 5183. Troponin of 0.639. UA showed large blood, greater than 40 wbc's. SARS-COVID screen was negative. The patient received insulin, dextrose. Repeat potassium was 3.9. Creatinine came down to 2.1. Chest x-ray revealed endotracheal tube in place, mild right upper lobe atelectasis or infiltrate. Head CT showed no acute intracranial abnormality. Cervical spine CT showed no fracture. Chest x-ray this morning showed interstitial changes, area of consolidative infiltrate developing in the right perihilar and lower lobe distribution. I started the patient on Zosyn and Zyvox yesterday for concerns of aspiration. The patient is currently off pressors, remains intubated. REVIEW OF SYSTEMS: Unable to obtain. PAST MEDICAL HISTORY: Asthma, coronary artery disease, CHF, COPD, diabetes mellitus 2, hyperlipidemia, hypertension, history of RI, neuropathy, morbid obesity, RLS, insomnia, coronary artery disease with stents, screws in the left ankle. SOCIAL HISTORY: Former smoker. No alcohol, no drugs. FAMILY HISTORY: As per HPI. PAST SURGICAL HISTORY: Noted. CURRENT MEDICATIONS: Amiodarone, Zyvox, Zosyn. Other medications reviewed in medication list. ALLERGIES: No known drug allergies. PHYSICAL EXAMINATION: VITAL SIGNS: Temperature 99.4, T-max 103, pulse 82, respiratory rate 18, blood pressure 172/81, oxygen saturation 100% on FIO2 of 50 and PEEP of 5. GENERAL: Intubated female with intermittent facial swelling. The patient is in mittens. HEENT: Normocephalic, atraumatic. Occasional twitching on the face. ETT present. NECK: Supple though fullness due to body habitus. Left IJ clean. LUNGS: Decreased breath sounds. No wheezing. HEART: S1, S2. Distant heart sounds. ABDOMEN: Obese. Bowel sounds present. EXTREMITIES: Minimal edema. No cyanosis. NEUROLOGIC: Intubated, sedated.Twitching of face intermitently LABORATORY DATA: WBC 13.0, hemoglobin 11.0, hematocrit 34.9, platelets 219. Sodium 151, potassium 3.9, chloride 113, bicarb 26, BUN 17, creatinine 2.1, glucose 109. Lactate 2.2. LFTs noted. Albumin 2.2. UA shows large blood, greater than 40 wbc's. SARS-COVID rapid negative. MICROBIOLOGY: Blood culture, urine culture pending at this time. DIAGNOSTICS: CT cervical and head as above. Chest x-ray as above. IMPRESSION: 1. Fever. 2. Leukocytosis and lactic acidosis. 3. Acute hypoxic respiratory failure. 4. Suspected aspiration pneumonia. 5. Status post cardiopulmonary arrest. 6. Questionable seizures. 7. Diabetes mellitus 2. 8. Morbid obesity. 9. Obstructive sleep apnea. 10. Coronary artery disease. 11. Chronic kidney disease 12. Hypernatremia and hyperkalemia. RECOMMENDATIONS: 1. Continue Zosyn and Zyvox. 2. Follow up labs and cultures. 3. Continue supportive care. 4. Neurology and Pulmonary team are following. 5. Critically ill. 6. Prognosis poor. Thank you for allowing me to participate in this patient's care. If you have any questions, do not hesitate to contact me. CCT [address]: Toña TID: [id number] MTDD
[2021-01-06] VITALS (23 sets, daily range): BP systolic 97–173; BP diastolic 44–78
[2021-01-06] MEDS ORDERED: AMIODARONE 450 MG in IV DEXTROSE 5% 250 ML IV ONE ×2 (02:00→17:00)
[2021-01-06 05:37] LABS: CALCIUM 8.7 mg/dL (8.5-10.1); CREATININE 1.6 mg/dL (0.6-1.0); GFR 39.5; PHOSPHORUS 2.8 mg/dL (2.6-4.7); POTASSIUM 3.4 mmol/L (3.5-5.1)
[2021-01-06] MEDS: PIPERACILLIN/TAZOBACTAM 2.25 GM in IV NORMAL SALINE 50ML 50 ML IV SCH ×3 (06:14→22:06)
[2021-01-06] MEDS: HEPARIN for SUB-Q USE 5,000 UNIT/ML VIAL. SQ SCH ×3 (06:14→22:06)
[2021-01-06 08:02] LABS: BASE EXCESS ABG 6 mmol/L (-3-3); HCO3 ABG 30 mmol/L (21-28); PCO2 ABG 39 mmHg (35-46); PO2 ABG 145 mmHg (65-108); SAT O2 ABG 99 % (92-99)
--- NOTE | 2021-01-06 08:05 | RAD ---
EXAM: AP View of the chest DATE: 01/06/2021 5:20 AM INDICATION: Reason: PNEUMONNIA / Spl. Instructions: / History: COMPARISON: No Prior FINDINGS: ET tube tip terminates approximately 3 cm above the sukh. Left IJ vascular catheter tip projects ov er the proximal SVC. Enteric tube extends beyond the diaphragm tip is not visualized. Diffuse parenchymal opacities left mid lung and lung base as well as right infrahilar lung, progresse d compared to 01/05/2021. No pleural effusion or pneumothorax. IMPRESSION: 1. Support lines and tubes as above. 2. Progressing bilateral parenchymal opacities may be related to progressing consolidative process o r superimposed atelectasis. Electronically signed by: Pravin Pineda MD (01/06/2021 8:02 AM) BAR
[2021-01-06 08:06] LABS: FIO2 ABG 40
[2021-01-06 08:30] LABS: BASO # 0.1 x10^3/uL (0.0-0.2); BASO % 1 % (0-3); EOS # 0.1 x10^3/uL (0.0-0.7); EOS % 1 % (0-3); HEMOGLOBIN 10.4 g/dL (12.0-15.5); LYMPH # 1.3 x10^3/uL (1.0-4.8); LYMPH % 11 % (24-48); MEAN CORPUSCULAR HEMOGLOBIN 24 pg (25-35); MEAN CORPUSCULAR HGB CONC 32 g/dL (31-37); MEAN CORPUSCULAR VOLUME 77 fL (79-100); MONO % 9 % (0-9); NEUT # 9.1 x10^3/uL (1.8-7.7); NEUT % 79 % (31-73); PLATELET COUNT 209 x10^3/uL (140-400); RED BLOOD COUNT 4.28 x10^6/uL (3.50-5.40); RED CELL DISTRIBUTION WIDTH 16.3 % (11.5-14.5); WHITE BLOOD COUNT 11.6 x10^3/uL (4.0-11.0)
[2021-01-06] MEDS: VALPROIC ACID (AS SODIUM SALT) 750 MG in IV DEXTROSE 5% 50 ML IV SCH ×2 (08:46→20:37)
--- NOTE | 2021-01-06 08:46 | PDOC ---
PULMONARY PROGRESS NOTES DATE: 01/06/21 TIME: 08:40 Subjective on vent off versed since yesterday no response small ett secretion fio2 40%, peep 5 Vitals Vital Signs Date Time Temp Pulse Resp B/P (MAP) Pulse Ox O2 Delivery O2 Flow Rate FiO2 01/06/21 08:33 78 18 142/72 (95) 96 Ventilator 01/06/21 07:23 98.4 98.4 Comments ros on vent unable to obtain no response HEENT: Other (nc at perrl nose clear orally intubated neck no lad no thyromegaly ) Lungs: Crackles Cardiovascular: S1, S2 Abdomen: Soft, Non-tender, Other (no mass obese) Extremities: Other (edema) Skin: Warm Labs Laboratory Tests Test 01/04/21 11:02 01/04/21 11:19 01/04/21 11:20 01/04/21 12:00 Sodium Level 151 mmol/L (136-145) Potassium Level 5.9 mmol/L (3.5-5.1) Chloride Level 112 mmol/L (98-107) Carbon Dioxide Level 34 mmol/L (21-32) Anion Gap 5 (6-14) Blood Urea Nitrogen 15 mg/dL (7-20) Creatinine 2.4 mg/dL (0.6-1.0) Estimated GFR (Cockcroft-Gault) 24.8 BUN/Creatinine Ratio 6 (6-20) Glucose Level 81 mg/dL (70-99) Calcium Level 9.5 mg/dL (8.5-10.1) Magnesium Level 2.3 mg/dL (1.8-2.4) Total Bilirubin 0.3 mg/dL (0.2-1.0) Aspartate Amino Transf (AST/SGOT) 29 U/L (15-37) Alanine Aminotransferase (ALT/SGPT) 19 U/L (14-59) Alkaline Phosphatase 101 U/L (46-116) Lactate Dehydrogenase 224 U/L (81-234) Troponin I Quantitative 0.639 ng/mL (0.000-0.055) ZO-Ifp-D-Type Natriuretic Peptide 5183 pg/mL (0-124) Total Protein 6.7 g/dL (6.4-8.2) Albumin 3.1 g/dL (3.4-5.0) Albumin/Globulin Ratio 0.9 (1.0-1.7) Thyroid Stimulating Hormone (TSH) 1.492 uIU/mL (0.358-3.74) O2 Saturation 99 % (92-99) Arterial Blood pH 7.20 (7.35-7.45) Arterial Blood pCO2 at Patient Temp 62 mmHg (35-46) Arterial Blood pO2 at Patient Temp 191 mmHg (65-108) Arterial Blood HCO3 24 mmol/L (21-28) Arterial Blood Base Excess -5 mmol/L (-3-3) Oxyhemoglobin 98.2 % Methemoglobin 0.5 % (0.0-1.9) Carbon Monoxide, Quantitative 0.1 % (0.0-1.9) FiO2 100 White Blood Count 15.8 x10^3/uL (4.0-11.0) Red Blood Count 4.89 x10^6/uL (3.50-5.40) Hemoglobin 12.1 g/dL (12.0-15.5) Hematocrit 38.6 % (36.0-47.0) Mean Corpuscular Volume 79 fL (79-100) Mean Corpuscular Hemoglobin 25 pg (25-35) Mean Corpuscular Hemoglobin Concent 31 g/dL (31-37) Red Cell Distribution Width 16.9 % (11.5-14.5) Platelet Count 349 x10^3/uL (140-400) Neutrophils (%) (Auto) 73 % (31-73) Lymphocytes (%) (Auto) 20 % (24-48) Monocytes (%) (Auto) 7 % (0-9) Eosinophils (%) (Auto) 0 % (0-3) Basophils (%) (Auto) 0 % (0-3) Neutrophils # (Auto) 11.5 x10^3/uL (1.8-7.7) Lymphocytes # (Auto) 3.1 x10^3/uL (1.0-4.8) Monocytes # (Auto) 1.1 x10^3/uL (0.0-1.1) Eosinophils # (Auto) 0.0 x10^3/uL (0.0-0.7) Basophils # (Auto) 0.1 x10^3/uL (0.0-0.2) Prothrombin Time 14.0 SEC (11.7-14.0) Prothromb Time International Ratio 1.1 (0.8-1.1) Activated Partial Thromboplast Time 32 SEC (24-38) Lactic Acid Level 3.9 mmol/L (0.4-2.0) Coronavirus (COVID-19)(PCR) Negative (NEGATIVE) Test 01/04/21 13:55 01/04/21 15:11 01/04/21 15:50 01/04/21 15:56 SARS-CoV-2 Antigen (Rapid) Negative (NEGATIVE) O2 Saturation 98 % (92-99) Arterial Blood pH 7.44 (7.35-7.45) Arterial Blood pCO2 at Patient Temp 37 mmHg (35-46) Arterial Blood pO2 at Patient Temp 102 mmHg (65-108) Arterial Blood HCO3 25 mmol/L (21-28) Arterial Blood Base Excess 1 mmol/L (-3-3) FiO2 60% vent Lactic Acid Level 2.2 mmol/L (0.4-2.0) Glucose (Fingerstick) 62 mg/dL (70-99) Test 01/04/21 20:29 01/04/21 20:30 01/05/21 06:00 01/05/21 08:15 Glucose (Fingerstick) 108 mg/dL (70-99) Urine Collection Type Unknown Urine Color Yellow Urine Clarity Clear Urine pH 5.5 (<5.0-8.0) Urine Specific [place] 1.025 (1.000-1.030) Urine Protein >=300 mg/dL (NEG-TRACE) Urine Glucose (UA) Negative mg/dL (NEG) Urine Ketones (Stick) Trace mg/dL (NEG) Urine Blood Large (NEG) Urine Nitrite Negative (NEG) Urine Bilirubin Small (NEG) Urine Urobilinogen Dipstick 0.2 mg/dL (0.2 mg/dL) Urine Leukocyte Esterase Negative (NEG) Urine RBC >40 /HPF (0-2) Urine WBC >40 /HPF (0-4) Urine Squamous Epithelial Cells Few /LPF Urine Bacteria Moderate /HPF (0-FEW) Urine Cellular Casts Few /HPF Urine Hyaline Casts Few /HPF Urine Granular Casts Few /HPF Urine Mucus Slight /LPF White Blood Count 13.0 x10^3/uL (4.0-11.0) Red Blood Count 4.53 x10^6/uL (3.50-5.40) Hemoglobin 11.0 g/dL (12.0-15.5) Hematocrit 34.9 % (36.0-47.0) Mean Corpuscular Volume 77 fL (79-100) Mean Corpuscular Hemoglobin 24 pg (25-35) Mean Corpuscular Hemoglobin Concent 32 g/dL (31-37) Red Cell Distribution Width 16.2 % (11.5-14.5) Platelet Count 219 x10^3/uL (140-400) Neutrophils (%) (Auto) 82 % (31-73) Lymphocytes (%) (Auto) 9 % (24-48) Monocytes (%) (Auto) 8 % (0-9) Eosinophils (%) (Auto) 0 % (0-3) Basophils (%) (Auto) 0 % (0-3) Neutrophils # (Auto) 10.7 x10^3/uL (1.8-7.7) Lymphocytes # (Auto) 1.2 x10^3/uL (1.0-4.8) Monocytes # (Auto) 1.0 x10^3/uL (0.0-1.1) Eosinophils # (Auto) 0.0 x10^3/uL (0.0-0.7) Basophils # (Auto) 0.1 x10^3/uL (0.0-0.2) Sodium Level 151 mmol/L (136-145) Potassium Level 3.9 mmol/L (3.5-5.1) Chloride Level 113 mmol/L (98-107) Carbon Dioxide Level 26 mmol/L (21-32) Anion Gap 12 (6-14) Blood Urea Nitrogen 17 mg/dL (7-20) Creatinine 2.1 mg/dL (0.6-1.0) Estimated GFR (Cockcroft-Gault) 28.9 BUN/Creatinine Ratio 8 (6-20) Glucose Level 109 mg/dL (70-99) Calcium Level 8.8 mg/dL (8.5-10.1) Phosphorus Level 3.7 mg/dL (2.6-4.7) Magnesium Level 2.2 mg/dL (1.8-2.4) Total Bilirubin 0.5 mg/dL (0.2-1.0) Aspartate Amino Transf (AST/SGOT) 49 U/L (15-37) Alanine Aminotransferase (ALT/SGPT) 18 U/L (14-59) Alkaline Phosphatase 87 U/L (46-116) Creatine Kinase 682 U/L (26-192) Total Protein 6.3 g/dL (6.4-8.2) Albumin 2.2 g/dL (3.4-5.0) Albumin/Globulin Ratio 0.5 (1.0-1.7) O2 Saturation 99 % (92-99) Arterial Blood pH 7.45 (7.35-7.45) Arterial Blood pCO2 at Patient Temp 39 mmHg (35-46) Arterial Blood pO2 at Patient Temp 152 mmHg (65-108) Arterial Blood HCO3 27 mmol/L (21-28) Arterial Blood Base Excess 3 mmol/L (-3-3) FiO2 50 Test 01/05/21 11:31 01/05/21 18:13 01/06/21 00:11 01/06/21 04:50 Glucose (Fingerstick) 148 mg/dL (70-99) 152 mg/dL (70-99) 114 mg/dL (70-99) Sodium Level 148 mmol/L (136-145) Potassium Level 3.4 mmol/L (3.5-5.1) Chloride Level 111 mmol/L (98-107) Carbon Dioxide Level 28 mmol/L (21-32) Anion Gap 9 (6-14) Blood Urea Nitrogen 15 mg/dL (7-20) Creatinine 1.6 mg/dL (0.6-1.0) Estimated GFR (Cockcroft-Gault) 39.5 Glucose Level 121 mg/dL (70-99) Calcium Level 8.7 mg/dL (8.5-10.1) Phosphorus Level 2.8 mg/dL (2.6-4.7) Albumin 2.0 g/dL (3.4-5.0) Test 01/06/21 07:45 01/06/21 08:20 O2 Saturation 99 % (92-99) Arterial Blood pH 7.50 (7.35-7.45) Arterial Blood pCO2 at Patient Temp 39 mmHg (35-46) Arterial Blood pO2 at Patient Temp 145 mmHg (65-108) Arterial Blood HCO3 30 mmol/L (21-28) Arterial Blood Base Excess 6 mmol/L (-3-3) FiO2 40 White Blood Count 11.6 x10^3/uL (4.0-11.0) Red Blood Count 4.28 x10^6/uL (3.50-5.40) Hemoglobin 10.4 g/dL (12.0-15.5) Hematocrit 33.0 % (36.0-47.0) Mean Corpuscular Volume 77 fL (79-100) Mean Corpuscular Hemoglobin 24 pg (25-35) Mean Corpuscular Hemoglobin Concent 32 g/dL (31-37) Red Cell Distribution Width 16.3 % (11.5-14.5) Platelet Count 209 x10^3/uL (140-400) Neutrophils (%) (Auto) 79 % (31-73) Lymphocytes (%) (Auto) 11 % (24-48) Monocytes (%) (Auto) 9 % (0-9) Eosinophils (%) (Auto) 1 % (0-3) Basophils (%) (Auto) 1 % (0-3) Neutrophils # (Auto) 9.1 x10^3/uL (1.8-7.7) Lymphocytes # (Auto) 1.3 x10^3/uL (1.0-4.8) Monocytes # (Auto) 1.0 x10^3/uL (0.0-1.1) Eosinophils # (Auto) 0.1 x10^3/uL (0.0-0.7) Basophils # (Auto) 0.1 x10^3/uL (0.0-0.2) Laboratory Tests Test 01/05/21 11:31 01/05/21 18:13 01/06/21 00:11 01/06/21 04:50 Glucose (Fingerstick) 148 mg/dL (70-99) 152 mg/dL (70-99) 114 mg/dL (70-99) Sodium Level 148 mmol/L (136-145) Potassium Level 3.4 mmol/L (3.5-5.1) Chloride Level 111 mmol/L (98-107) Carbon Dioxide Level 28 mmol/L (21-32) Anion Gap 9 (6-14) Blood Urea Nitrogen 15 mg/dL (7-20) Creatinine 1.6 mg/dL (0.6-1.0) Estimated GFR (Cockcroft-Gault) 39.5 Glucose Level 121 mg/dL (70-99) Calcium Level 8.7 mg/dL (8.5-10.1) Phosphorus Level 2.8 mg/dL (2.6-4.7) Albumin 2.0 g/dL (3.4-5.0) Test 01/06/21 07:45 01/06/21 08:20 O2 Saturation 99 % (92-99) Arterial Blood pH 7.50 (7.35-7.45) Arterial Blood pCO2 at Patient Temp 39 mmHg (35-46) Arterial Blood pO2 at Patient Temp 145 mmHg (65-108) Arterial Blood HCO3 30 mmol/L (21-28) Arterial Blood Base Excess 6 mmol/L (-3-3) FiO2 40 White Blood Count 11.6 x10^3/uL (4.0-11.0) Red Blood Count 4.28 x10^6/uL (3.50-5.40) Hemoglobin 10.4 g/dL (12.0-15.5) Hematocrit 33.0 % (36.0-47.0) Mean Corpuscular Volume 77 fL (79-100) Mean Corpuscular Hemoglobin 24 pg (25-35) Mean Corpuscular Hemoglobin Concent 32 g/dL (31-37) Red Cell Distribution Width 16.3 % (11.5-14.5) Platelet Count 209 x10^3/uL (140-400) Neutrophils (%) (Auto) 79 % (31-73) Lymphocytes (%) (Auto) 11 % (24-48) Monocytes (%) (Auto) 9 % (0-9) Eosinophils (%) (Auto) 1 % (0-3) Basophils (%) (Auto) 1 % (0-3) Neutrophils # (Auto) 9.1 x10^3/uL (1.8-7.7) Lymphocytes # (Auto) 1.3 x10^3/uL (1.0-4.8) Monocytes # (Auto) 1.0 x10^3/uL (0.0-1.1) Eosinophils # (Auto) 0.1 x10^3/uL (0.0-0.7) Basophils # (Auto) 0.1 x10^3/uL (0.0-0.2) Medications Active Scripts Medications Dose Route/Sig Max Daily Dose Days Date Category Dose Instructions Voltaren (Diclofenac Sodium) 100 Gm Gel..gram. 1 Gm TP QID 30 12/10/20 Reported apply to affected area(s) Oxycodone Hcl 5 Mg Capsule 5 Mg PO PRN Q6HRS PRN 12/08/20 Reported Nystatin 15 Gm Powder 1 [place] TP BID 7 12/08/20 Reported apply to affected area(s) Ondansetron Odt (Ondansetron) 4 Mg Tab.rapdis 1 Tab PO PRN Q8HRS PRN 11/05/20 Reported Reglan (Metoclopramide Hcl) 10 Mg Tablet 1 Tab PO QID 30 11/05/20 Reported before food and bedtime Pantoprazole Sodium (Pantoprazole Sodium) 40 Mg Tablet.dr 40 Mg PO BIDAC 30 06/21/20 Rx Losartan Potassium 100 Mg Tablet 100 Mg PO DAILY 05/03/20 Reported Aspirin 325 Mg Tablet 1 Tab PO DAILY 05/03/20 Reported Metformin Hcl 500 Mg Tablet 500 Mg PO BIDWMEALS 05/03/20 Reported Bumetanide 1 Mg Tablet 1 Mg PO BID 04/02/20 Reported Insulin Aspart 100 Unit/1 Ml Vial 60 Unit SQ TIDAC 04/02/20 Reported novolg flex pen Isosorbide Mononitrate Er (Isosorbide Mononitrate) 120 Mg Tab.er.24h 120 Mg PO DAILY 04/02/20 Reported NITROGLYCERIN SubLingual (Nitroglycerin) 0.4 Mg Tab.subl 0.4 Mg SL PRN Q5MIN PRN 04/02/20 Reported Albuterol Sulfate Neb Soln (Albuterol Sulfate) 2.5 Mg/3 Ml Vial.neb 2.5 Mg NEB Q4-6HRS PRN 04/02/20 Reported Levemir Flextouch (Insulin Detemir) 100 Unit/1 Ml Insuln.pen 60 Unit SQ HS 04/02/20 Reported Hydralazine Hcl 25 Mg Tablet 25 Mg PO BID 04/02/20 Reported Fluticasone Propionate Nasal [place] (Fluticasone Propionate) 16 Gm [place].susp 2 [place] NS DAILY 06/18/19 Reported Zolpidem Tartrate 5 Mg Tablet 5 Mg PO PRN QHS PRN 06/18/19 Reported Amlodipine Besylate 10 Mg Tablet 10 Mg PO DAILY 06/18/19 Reported Gabapentin 600 Mg Tablet 600 Mg PO BID 06/18/19 Reported Potassium Chloride (Potassium Chloride) 20 Meq Tablet.er 20 Meq PO BID 06/18/19 Reported Clopidogrel (Clopidogrel Bisulfate) 75 Mg Tablet 75 Mg PO DAILYWBKFT 75 11/10/17 Rx Proair Respiclick (Albuterol Sulfate) 90 Mcg Aer.pow.ba 2 Puff IH PRN Q4-6HRS PRN 09/08/16 Reported Cyclobenzaprine Hcl 10 Mg Tablet 1 Tab PO BID PRN 09/08/16 Reported Requip (Ropinirole Hcl) 1 Mg Tablet 1 Tab PO QHS 09/08/16 Reported Crestor (Rosuvastatin Calcium) 20 Mg Tablet 20 Mg PO HS 10/02/15 Reported LAST DOSE: 10/01/15 BEDTIME NEXT DOSE: 10/02/15 BEDTIME Oxybutynin Chloride 5 Mg Tablet 1 Tab PO DAILY 10/02/15 Reported LAST DOSE: 10/02/15 AM NEXT DOSE: 10/03/15 AM Comments cxr 01/06 reviewed b lat infilt l>R l atelectasis cxr 01/05 reviewed b lat infilt worse ett ok Impression . IMPRESSION: 1. Acute hypoxemic hypercapnic respiratory failure. 2. aspiration pneumonia. 3. Abnormal chest x-ray, compatible with aspiration. ? sys chf 4. Cardiopulmonary arrest secondary to aspiration and hypoxemia. 5. Coronary artery disease with recent percutaneous coronary intervention to the left anterior descending. 6. Normal ejection fraction. 7. Type 2 diabetes. 8. Chronic obstructive pulmonary disease. 9. Morbid obesity. 10. Hypertension. 11. Obstructive sleep apnea. 12. encephalopathy ? anoxic 13. MIRIAM cr trending down Plan . PLAN: 1. cont vent support setting reviewed, abg reviewed, personally decreased rr to 16 not alert enough to do sbt off sedation 2. cont antibiotics. 3. Monitor blood sugars. 4. Neurology consulted for questionable seizures. on anti sz meds 5. elevate hob 6. DVT and GI prophylaxis. 7. follow Cardiology rec, p.r.n. hydralazine for elevated blood pressure. 8. has le edema, le venous doppler no dvt discussed w DAYRON Adams MD Jan 06, 2021 08:46
[2021-01-06 09:05] LABS: CALCIUM 8.7 mg/dL (8.5-10.1); CREATININE 1.6 mg/dL (0.6-1.0); GFR 39.5
[2021-01-06 09:18] LABS: POTASSIUM 3.4 mmol/L (3.5-5.1)
--- NOTE | 2021-01-06 10:27 | PDOC ---
PROGRESS NOTES Date of Service: DATE: 01/06/21 TIME: 10:27 Subjective Subjective Intubated and sedated Objective Objective Vital Signs Date Time Temp Pulse Resp B/P (MAP) Pulse Ox O2 Delivery O2 Flow Rate FiO2 01/06/21 09:03 80 18 148/66 (93) 99 Ventilator 01/06/21 07:23 98.4 98.4 Intake and Output 01/06/21 07:00 Intake Total 3116.16 ml Output Total 1178 ml Balance 1938.16 ml Intake IV Total 1104.16 ml Tube Feeding 1001 ml Other 1011 ml Output Urine Total 1178 ml Physical Exam Abdomen: Soft Heart: Regular rate Extremities: Other (Trace edema) General: Other Lungs: Other (Decreased air entry in the bases and scattered crepitations) Neck: No JVD Assessment Assessment 1. Acute hypoxic hypercapnic respiratory failure most probably secondary to aspiration pneumonia s/p intubation and mechanical ventilation. Pulmonary team following. Continue intravenous antibiotics. 2. Ventricular fibrillation during difficult intubation, could have been precipitated by hypoxia. Slight troponin elevation most probably demand isch emia secondary to CPR/defibrillation. EKG showed sinus rhythm with right bundle branch block. Telemetry did not show any further arrhythmias. Continue amiodarone infusion for now. 3. Coronary artery disease: Recent cardiac catheterization in November 2020 showed patent long stented proximal to distal LAD. No lesions needing intervention were noted. 2D echo at that time showed LVEF 55 to 60%. Continue current secondary prevention measures. 4. Hypertension: Labile secondary to agitation. 5. Hyperlipidemia: Statins 6. DM 2: Per IM 7. Acute kidney injury: Nephrology following Plan Plan of Care Problems Medical Problems: (1) Acute renal failure Status: Acute (2) Altered mental status Status: Acute (3) Aspiration pneumonia Status: Acute (4) Hyperkalemia Status: Acute (5) Respiratory failure Status: Acute (6) Sepsis Status: Acute Comment Review of Relevant I have reviewed the following items shady (where applicable) has been applied. Labs Laboratory Tests Test 01/05/21 11:31 01/05/21 18:13 01/06/21 00:11 01/06/21 04:50 Glucose (Fingerstick) 148 mg/dL (70-99) 152 mg/dL (70-99) 114 mg/dL (70-99) Sodium Level 148 mmol/L (136-145) Potassium Level 3.4 mmol/L (3.5-5.1) Chloride Level 111 mmol/L (98-107) Carbon Dioxide Level 28 mmol/L (21-32) Anion Gap 9 (6-14) Blood Urea Nitrogen 15 mg/dL (7-20) Creatinine 1.6 mg/dL (0.6-1.0) Estimated GFR (Cockcroft-Gault) 39.5 Glucose Level 121 mg/dL (70-99) Calcium Level 8.7 mg/dL (8.5-10.1) Phosphorus Level 2.8 mg/dL (2.6-4.7) Albumin 2.0 g/dL (3.4-5.0) Test 01/06/21 07:45 01/06/21 08:20 O2 Saturation 99 % (92-99) Arterial Blood pH 7.50 (7.35-7.45) Arterial Blood pCO2 at Patient Temp 39 mmHg (35-46) Arterial Blood pO2 at Patient Temp 145 mmHg (65-108) Arterial Blood HCO3 30 mmol/L (21-28) Arterial Blood Base Excess 6 mmol/L (-3-3) FiO2 40 White Blood Count 11.6 x10^3/uL (4.0-11.0) Red Blood Count 4.28 x10^6/uL (3.50-5.40) Hemoglobin 10.4 g/dL (12.0-15.5) Hematocrit 33.0 % (36.0-47.0) Mean Corpuscular Volume 77 fL (79-100) Mean Corpuscular Hemoglobin 24 pg (25-35) Mean Corpuscular Hemoglobin Concent 32 g/dL (31-37) Red Cell Distribution Width 16.3 % (11.5-14.5) Platelet Count 209 x10^3/uL (140-400) Neutrophils (%) (Auto) 79 % (31-73) Lymphocytes (%) (Auto) 11 % (24-48) Monocytes (%) (Auto) 9 % (0-9) Eosinophils (%) (Auto) 1 % (0-3) Basophils (%) (Auto) 1 % (0-3) Neutrophils # (Auto) 9.1 x10^3/uL (1.8-7.7) Lymphocytes # (Auto) 1.3 x10^3/uL (1.0-4.8) Monocytes # (Auto) 1.0 x10^3/uL (0.0-1.1) Eosinophils # (Auto) 0.1 x10^3/uL (0.0-0.7) Basophils # (Auto) 0.1 x10^3/uL (0.0-0.2) Sodium Level 149 mmol/L (136-145) Potassium Level 3.4 mmol/L (3.5-5.1) Chloride Level 111 mmol/L (98-107) Carbon Dioxide Level 29 mmol/L (21-32) Anion Gap 9 (6-14) Blood Urea Nitrogen 15 mg/dL (7-20) Creatinine 1.6 mg/dL (0.6-1.0) Estimated GFR (Cockcroft-Gault) 39.5 Glucose Level 114 mg/dL (70-99) Calcium Level 8.7 mg/dL (8.5-10.1) Microbiology 01/05/21 Gram Stain Evaluation - Final, Resulted 01/05/21 Respiratory Culture - Preliminary, Resulted 01/04/21 Urine Culture - Final, Complete 01/04/21 Blood Culture - Preliminary, Resulted NO GROWTH AFTER 1 DAY Medications Current Medications Amiodarone HCl 450 mg/Dextrose 259 ml @ 0 mls/hr 1X ONCE IV Last administered on 01/06/21at 02:00; Start 01/06/21 at 02:00; Stop 01/06/21 at 02:01; Status DC Daptomycin 600 mg/ Sodium Chloride 50 ml @ 100 mls/hr Q48H IV Last a dministered on 01/05/21at 16:46; Start 01/05/21 at 16:00 Dextrose (Dextrose 50%-Water Syringe) 12.5 gm PRN Q15MIN PRN IV SEE COMMENTS; Start 01/05/21 at 18:15 Insulin Human Lispro (HumaLOG) 0-5 UNITS Q6HRS SQ ; Start 01/06/21 at 12:00 Insulin Human Lispro (HumaLOG) 0-5 UNITS TIDWMEALS SQ Last administered on 01/05/21at 18:27; Start 01/05/21 at 18:30; Stop 01/06/21 at 08:42; Status DC Scopolamine (Transderm-Scop) 1 patch Q3DAYS TD Last administered on 01/05/21at 16:23; Start 01/05/21 at 17:00 Valproic Acid 750 mg/Dextrose 57.5 ml @ 57.5 mls/hr Q12HR IV Last administered on 01/06/21at 08:46; Start 01/05/21 at 21:00 Vitals/I & O Vital Sign - Last 24 Hours 01/05/21 01/05/21 01/05/21 01/05/21 11:00 11:48 12:00 12:00 Temp 99.5 99.5 Pulse 91 92 Resp 20 18 B/P (MAP) 162/71 (101) 161/78 (105) Pulse Ox 100 100 99 O2 Delivery Ventilator Ventilator Mechanical Ventilator Ventilator 01/05/21 01/05/21 01/05/21 01/05/21 13:00 14:00 14:00 15:00 Pulse 92 88 88 Resp 20 20 20 B/P (MAP) 180/89 (119) 175/71 (105) 186/77 (113) Pulse Ox 100 98 100 99 O2 Delivery Ventilator Ventilator Ventilator Ventilator 01/05/21 01/05/21 01/05/21 01/05/21 15:23 16:00 16:00 17:00 Temp 99.4 99.4 Pulse 88 98 92 Resp 19 B/P (MAP) 175/71 126/58 (80) 144/60 (88) Pulse Ox 99 99 O2 Delivery Mechanical Ventilator Ventilator Ventilator 01/05/21 01/05/21 01/05/21 01/05/21 17:02 18:00 19:00 20:00 Pulse 98 93 Resp 19 B/P (MAP) 161/70 (100) 146/56 (86) Pulse Ox 97 99 98 O2 Delivery Ventilator Ventilator Ventilator Mechanical Ventilator 01/05/21 01/05/21 01/05/21 01/05/21 20:00 20:03 21:00 21:24 Temp 99.7 99.7 Pulse 91 81 Resp 18 19 B/P (MAP) 133/58 (83) 116/49 (71) Pulse Ox 98 98 99 99 O2 Delivery Ventilator Ventilator Ventilator Ventilator 01/05/21 01/05/21 01/05/21 01/05/21 22:00 23:00 23:34 23:58 Pulse 82 76 86 Resp 19 20 B/P (MAP) 137/68 (91) 131/59 (83) 161/117 Pulse Ox 99 99 O2 Delivery Ventilator Ventilator Mechanical Ventilator 01/05/21 01/06/21 01/06/21 01/06/21 23:58 00:00 01:00 02:00 Temp 99.2 99.2 Pulse 87 81 84 Resp 18 20 20 B/P (MAP) 125/55 (78) 100/48 (65) 125/67 (86) Pulse Ox 99 100 97 99 O2 Delivery Ventilator Ventilator Ventilator Ventilator 01/06/21 01/06/21 01/06/21 01/06/21 02:35 03:00 04:00 04:00 Temp 99.7 99.7 Pulse 90 81 Resp 20 18 B/P (MAP) 133/64 (87) 137/64 (88) Pulse Ox 99 99 99 O2 Delivery Ventilator Ventilator Ventilator Mechanical Ventilator 01/06/21 01/06/21 01/06/21 01/06/21 05:00 05:25 06:00 07:23 Temp 98.4 98.4 Pulse 92 83 79 Resp 20 20 18 B/P (MAP) 159/59 (92) 132/65 (87) 120/65 (83) Pulse Ox 99 97 99 98 O2 Delivery Ventilator Ventilator Ventilator Ventilator 01/06/21 01/06/21 01/06/21 01/06/21 07:45 08:33 08:43 09:03 Pulse 78 80 Resp 18 18 B/P (MAP) 142/72 (95) 148/66 (93) Pulse Ox 98 96 99 O2 Delivery Ventilator Ventilator Mechanical Ventilator Ventilator Intake and Output 01/05/21 01/05/21 01/06/21 15:00 23:00 07:00 Intake Total 150 ml 2138.66 ml 827.5 ml Output Total 330 ml 578 ml 270 ml Balance -180 ml 1560.66 ml 557.5 ml ERICA ADEN MD Jan 06, 2021 10:27
[2021-01-06] MEDS: hydrALAZINE 20 MG/ML VIAL. IVP PRN (10:40)
--- NOTE | 2021-01-06 10:59 | PDOC ---
[employer] PROGRESS NOTE Date of Service DOS: DATE: 01/06/21 TIME: 10:54 Chief Complaint Chief Complaint Assessment/Plan Respiratory failure SUSPECT aspiration pneumonia Mild prominent interstitial lung markings likely mild congestive changes or interstitial infiltrates ACUTE STEMI CAD Extensive stenting of the LAD with the most significant area of restenosis being a 35% lesion in the mid vessel. Mild disease in the right coronary artery. Acute renal failure/ MIRIAM Hyperkalemia Aspiration pneumonia Altered mental status Sepsis MORBID OBESITY Severe protein malnutrition ICU BED Consult cardiology Nephrology consult ID CONSULT PULM CONSULT VENT SUPPORT DVT PROPHYLAXIS EMPERIC IV ANTIBIOTICS, Zosyn pending id consult Neurology consult History of Present Illness History of Present Illness 01/06/2021 No acute events overnight. Patient withdraws to pain. Still intubated with vent settings at 16/450/40/5. Not on any sedation at this time. Patient's chart, labs, images were reviewed and discussed with RN 01/05/2021 No acute events overnight. Patient seen and examined bedside. Patient remains intubated. Without sedation. Vent settings at 18/450/40/5. Patient is not responding to painful stimuli at this time. There is a lot of secretions. Currently not on any vasopressors.> 50% time spent in patient chart, labs, and imaging review and in discussion with RN and ALLISON 60 year old female w/ PMHx Asthma, CAD s/p stenting x6, CHF, COPD, Diabetes- Type II, High Cholesterol, Hypertension, neuropathy, morbid obesity, RLS, insomnia who presented to ER in respiratory distress was brought here by EMS from home after she was found unresponsive in her bed by her family. Patient was last known normal was 9 AM yesterday. family tried to call her but could not get a hold of her so they show up to her house, found her unresponsive in her bed. Per family, patient had a CPAP machine on but the mask slid off her face, there was lot of mucus and material around her face and on her neck area. Patient was responsive to painful stimuli but was very confused, did not follow command. EMS were called, they found her in respiratory distress, GCS of 7-8, they bagged her and brought her here. Upon arrival to room, patient was unresponsive to verbal, severe respiratory distress, need emergent intubation. Her family stated that patient was seen here 2 days ago for epigastric abdominal pain. It was recommended that she need to stay in the hospital however patient did not want to stay in the hospital so she went home. AMA Vitals/I&O Vitals/I&O: Vital Signs Date Time Temp Pulse Resp B/P (MAP) Pulse Ox O2 Delivery O2 Flow Rate FiO2 01/06/21 10:40 90 173/78 01/06/21 10:31 17 99 Ventilator 01/06/21 07:23 98.4 98.4 I & O 01/05/21 01/05/21 01/06/21 15:00 23:00 07:00 Intake Total 150 ml 2138.66 ml 827.5 ml Output Total 330 ml 578 ml 270 ml Balance -180 ml 1560.66 ml 557.5 ml Physical Exam General: Other Heart: Regular rate Lungs: Crackles Abdomen: Soft Extremities: Other (Trace edema) Labs Labs: Laboratory Tests Test 01/05/21 11:31 01/05/21 18:13 01/06/21 00:11 01/06/21 04:50 Glucose (Fingerstick) 148 mg/dL (70-99) 152 mg/dL (70-99) 114 mg/dL (70-99) Sodium Level 148 mmol/L (136-145) Potassium Level 3.4 mmol/L (3.5-5.1) Chloride Level 111 mmol/L (98-107) Carbon Dioxide Level 28 mmol/L (21-32) Anion Gap 9 (6-14) Blood Urea Nitrogen 15 mg/dL (7-20) Creatinine 1.6 mg/dL (0.6-1.0) Estimated GFR (Cockcroft-Gault) 39.5 Glucose Level 121 mg/dL (70-99) Calcium Level 8.7 mg/dL (8.5-10.1) Phosphorus Level 2.8 mg/dL (2.6-4.7) Albumin 2.0 g/dL (3.4-5.0) Test 01/06/21 07:45 01/06/21 08:20 O2 Saturation 99 % (92-99) Arterial Blood pH 7.50 (7.35-7.45) Arterial Blood pCO2 at Patient Temp 39 mmHg (35-46) Arterial Blood pO2 at Patient Temp 145 mmHg (65-108) Arterial Blood HCO3 30 mmol/L (21-28) Arterial Blood Base Excess 6 mmol/L (-3-3) FiO2 40 White Blood Count 11.6 x10^3/uL (4.0-11.0) Red Blood Count 4.28 x10^6/uL (3.50-5.40) Hemoglobin 10.4 g/dL (12.0-15.5) Hematocrit 33.0 % (36.0-47.0) Mean Corpuscular Volume 77 fL (79-100) Mean Corpuscular Hemoglobin 24 pg (25-35) Mean Corpuscular Hemoglobin Concent 32 g/dL (31-37) Red Cell Distribution Width 16.3 % (11.5-14.5) Platelet Count 209 x10^3/uL (140-400) Neutrophils (%) (Auto) 79 % (31-73) Lymphocytes (%) (Auto) 11 % (24-48) Monocytes (%) (Auto) 9 % (0-9) Eosinophils (%) (Auto) 1 % (0-3) Basophils (%) (Auto) 1 % (0-3) Neutrophils # (Auto) 9.1 x10^3/uL (1.8-7.7) Lymphocytes # (Auto) 1.3 x10^3/uL (1.0-4.8) Monocytes # (Auto) 1.0 x10^3/uL (0.0-1.1) Eosinophils # (Auto) 0.1 x10^3/uL (0.0-0.7) Basophils # (Auto) 0.1 x10^3/uL (0.0-0.2) Sodium Level 149 mmol/L (136-145) Potassium Level 3.4 mmol/L (3.5-5.1) Chloride Level 111 mmol/L (98-107) Carbon Dioxide Level 29 mmol/L (21-32) Anion Gap 9 (6-14) Blood Urea Nitrogen 15 mg/dL (7-20) Creatinine 1.6 mg/dL (0.6-1.0) Estimated GFR (Cockcroft-Gault) 39.5 Glucose Level 114 mg/dL (70-99) Calcium Level 8.7 mg/dL (8.5-10.1) Assessment and Plan Assessmemt and Plan Problems Medical Problems: (1) Acute renal failure Status: Acute (2) Altered mental status Status: Acute (3) Aspiration pneumonia Status: Acute (4) Hyperkalemia Status: Acute (5) Respiratory failure Status: Acute (6) Sepsis Status: Acute Comment Review of Relevant I have reviewed the following items shady (where applicable) has been applied. Medications: Current Medications Medications (Trade) Dose Ordered Sig/Lui Route PRN Reason Start Time Stop Time Status Last Admin Dose Admin Daptomycin 600 mg/ Sodium Chloride 50 ml @ 100 mls/hr Q48H IV 01/05/21 16:00 01/05/21 16:46 Scopolamine (Transderm-Scop) 1 patch Q3DAYS TD 01/05/21 17:00 01/05/21 16:23 Valproic Acid 750 mg/Dextrose 57.5 ml @ 57.5 mls/hr Q12HR IV 01/05/21 21:00 01/06/21 08:46 Insulin Human Lispro (HumaLOG) 0-5 UNITS TIDWMEALS SQ 01/05/21 18:30 01/06/21 08:42 DC 01/05/21 18:27 Amiodarone HCl 450 mg/Dextrose 259 ml @ 0 mls/hr 1X ONCE IV 01/06/21 02:00 01/06/21 02:01 DC 01/06/21 02:00 Justifications for Admission Other Justification cardiac arrest MARK ENCISO MD Jan 06, 2021 10:58
--- NOTE | 2021-01-06 11:09 | PDOC ---
Infectious Disease Note Subjective: Subjective Patient sedated FiO2 40% PEEP of 5 Discussed with nursing staff Vital Signs: Vital Signs Vital Signs Date Time Temp Pulse Resp B/P (MAP) Pulse Ox O2 Delivery O2 Flow Rate FiO2 01/06/21 10:40 90 173/78 01/06/21 10:31 17 99 Ventilator 01/06/21 07:23 98.4 98.4 Physical Exam: PHYSICAL EXAM GENERAL: [facility] HEENT: Normocephalic, atraumatic. ETT /OGT + NECK: Supple though fullness due to body habitus. LUNGS: Decreased breath sounds. No wheezing. HEART: S1, S2. Distant heart sounds. ABDOMEN: Obese. Bowel sounds present. EXTREMITIES: Minimal edema. No cyanosis. NEUROLOGIC: Intubated, sedated. Left IJ clean Medications: Inpatient Meds: Medications reviewed. Labs: Lab Laboratory Tests Test 01/05/21 11:31 01/05/21 18:13 01/06/21 00:11 01/06/21 04:50 Glucose (Fingerstick) 148 mg/dL (70-99) 152 mg/dL (70-99) 114 mg/dL (70-99) Sodium Level 148 mmol/L (136-145) Potassium Level 3.4 mmol/L (3.5-5.1) Chloride Level 111 mmol/L (98-107) Carbon Dioxide Level 28 mmol/L (21-32) Anion Gap 9 (6-14) Blood Urea Nitrogen 15 mg/dL (7-20) Creatinine 1.6 mg/dL (0.6-1.0) Estimated GFR (Cockcroft-Gault) 39.5 Glucose Level 121 mg/dL (70-99) Calcium Level 8.7 mg/dL (8.5-10.1) Phosphorus Level 2.8 mg/dL (2.6-4.7) Albumin 2.0 g/dL (3.4-5.0) Test 01/06/21 07:45 01/06/21 08:20 O2 Saturation 99 % (92-99) Arterial Blood pH 7.50 (7.35-7.45) Arterial Blood pCO2 at Patient Temp 39 mmHg (35-46) Arterial Blood pO2 at Patient Temp 145 mmHg (65-108) Arterial Blood HCO3 30 mmol/L (21-28) Arterial Blood Base Excess 6 mmol/L (-3-3) FiO2 40 White Blood Count 11.6 x10^3/uL (4.0-11.0) Red Blood Count 4.28 x10^6/uL (3.50-5.40) Hemoglobin 10.4 g/dL (12.0-15.5) Hematocrit 33.0 % (36.0-47.0) Mean Corpuscular Volume 77 fL (79-100) Mean Corpuscular Hemoglobin 24 pg (25-35) Mean Corpuscular Hemoglobin Concent 32 g/dL (31-37) Red Cell Distribution Width 16.3 % (11.5-14.5) Platelet Count 209 x10^3/uL (140-400) Neutrophils (%) (Auto) 79 % (31-73) Lymphocytes (%) (Auto) 11 % (24-48) Monocytes (%) (Auto) 9 % (0-9) Eosinophils (%) (Auto) 1 % (0-3) Basophils (%) (Auto) 1 % (0-3) Neutrophils # (Auto) 9.1 x10^3/uL (1.8-7.7) Lymphocytes # (Auto) 1.3 x10^3/uL (1.0-4.8) Monocytes # (Auto) 1.0 x10^3/uL (0.0-1.1) Eosinophils # (Auto) 0.1 x10^3/uL (0.0-0.7) Basophils # (Auto) 0.1 x10^3/uL (0.0-0.2) Sodium Level 149 mmol/L (136-145) Potassium Level 3.4 mmol/L (3.5-5.1) Chloride Level 111 mmol/L (98-107) Carbon Dioxide Level 29 mmol/L (21-32) Anion Gap 9 (6-14) Blood Urea Nitrogen 15 mg/dL (7-20) Creatinine 1.6 mg/dL (0.6-1.0) Estimated GFR (Cockcroft-Gault) 39.5 Glucose Level 114 mg/dL (70-99) Calcium Level 8.7 mg/dL (8.5-10.1) Objective: Assessment: 1. Fever. 2. Leukocytosis and lactic acidosis. 3. Acute hypoxic respiratory failure. 4. Suspected aspiration pneumonia. Sputum culture positive for staph for 5. Status post cardiopulmonary arrest. 6. Questionable seizures. 7. Diabetes mellitus 2. 8. Morbid obesity. 9. Obstructive sleep apnea. 10. Coronary artery disease. 11. Chronic kidney disease 12. Hypernatremia and hyperkalemia. 13 Gram-positive bacteremia bacteremia 2 out of 4 bottles present on admission Plan: Plan of Care 1. Continue daptomycin ,Zosyn and Zyvox. 2. Follow up labs and cultures. Follow-up GPC in blood culture Follow-up repeat blood cultures 3. Continue supportive care. 4. Critically ill. 5. Prognosis poor. Discussed with nursing staff LUDY CRUZ MD Jan 06, 2021 11:09
[2021-01-06] MEDS: INSULIN LISPRO 300 UNITS/3 ML VIAL. SQ SCH ×2 (12:00→17:14)
--- NOTE | 2021-01-06 13:47 | PDOC ---
DATE OF SERVICE DATE: 01/06/21 TIME: 13:43 SUBJECTIVE ROS Remains Intubated and sedated OBJECTIVE Vital Signs Vital Signs Date Time Temp Pulse Resp B/P (MAP) Pulse Ox O2 Delivery O2 Flow Rate FiO2 01/06/21 13:04 90 16 150/66 (94) 97 Ventilator 01/06/21 11:06 99.2 99.2 I & 0 Intake and Output 01/06/21 07:00 Intake Total 3116.16 ml Output Total 1178 ml Balance 1938.16 ml Intake IV Total 1104.16 ml Tube Feeding 1001 ml Other 1011 ml Output Urine Total 1178 ml PHYSICAL EXAM Physical Exam GENERAL: Intubated/MV HEENT: orally placed endotracheal tube. NECK: supple LUNGS: decreased at bases HEART: Distant heart sounds. ABD Marked obesity. EXTRE: No LE edema NEURO: sedated., Intubated Johnson + DIAGNOSIS/ASSESSMENT Assessment & Plan MIRIAM - ATN 2/2 Cardiopulmonary arrest, Non Oliguric , Stable renal function , K and bicarb stable Currently No emergent indication for dialysis , Supportive care , fluid balance , I/O, avoid nephrotoxins HyperNatremia - Water flushes with TF HypoKalemia- replace UTI - UA with WBC's and RBC's, Cx No growth Acute hypoxemic hypercapnic respiratory failure Intubated/MV Suspected aspiration pneumonia. Cardiopulmonary arrest Coronary artery disease with recent percutaneous coronary intervention to the left anterior descending. Type 2 diabetes. Chronic obstructive pulmonary disease. Morbid obesity. Hypertension. Obstructive sleep apnea. COMMENT/RELEVANT DATA Meds Current Medications Medications (Trade) Dose Ordered Sig/Lui Start Time Stop Time Status Last Admin Dose Admin Amiodarone HCl 450 mg/Dextrose 259 ml @ 0 mls/hr 1X ONCE 01/06/21 02:00 01/06/21 02:01 DC 01/06/21 02:00 16.7 MLS/HR Bisacodyl (Dulcolax Supp) 10 mg PRN DAILY PRN 01/04/21 14:00 Daptomycin 600 mg/ Sodium Chloride 50 ml @ 100 mls/hr Q48H 01/05/21 16:00 01/05/21 16:46 100 MLS/HR Dextrose (Dextrose 50%-Water Syringe) 12.5 gm PRN Q15MIN PRN 01/05/21 18:15 Etomidate (Amidate) 20 mg 1X ONCE 01/04/21 12:45 01/04/21 12:46 DC 01/04/21 11:02 20 MG Famotidine (Pepcid Vial) 20 mg QHS 01/04/21 21:00 01/05/21 21:11 20 MG Heparin Sodium (Porcine) (Heparin Sodium) 5,000 unit Q8HRS 01/04/21 14:00 01/06/21 06:14 5,000 UNIT Hydralazine HCl (Apresoline Inj) 10 mg PRN Q6HRS PRN 01/04/21 19:45 01/06/21 10:40 10 MG Insulin Human Lispro (HumaLOG) 0-5 UNITS Q6HRS 01/06/21 12:00 Insulin Human Regular (HumuLIN R VIAL) 10 unit 1X ONCE 01/04/21 12:00 01/04/21 12:01 DC 01/04/21 12:52 10 UNIT Linezolid/Dextrose 300 ml @ 300 mls/hr Q12HR 01/04/21 21:00 01/06/21 09:40 300 MLS/HR Lorazepam (Ativan Inj) 2 mg PRN Q2HRS PRN 01/04/21 19:30 01/05/21 23:30 2 MG Meropenem 500 mg/ Sodium Chloride 50 ml @ 100 mls/hr Q8HRS 01/04/21 18:00 Cancel Midazolam HCl 100 ml @ 1 mls/hr CONT PRN 01/05/21 02:00 01/05/21 02:00 4 MLS/HR Midazolam HCl (Versed) 5 mg 1X ONCE 01/04/21 12:45 01/04/21 12:46 DC 01/04/21 11:30 5 MG Ondansetron HCl (Zofran) 4 mg PRN Q6HRS PRN 01/04/21 14:00 Piperacillin Sod/ Tazobactam Sod (Zosyn Per Pharmacy) 1 each PRN DAILY PRN 01/04/21 14:00 01/04/21 17:48 DC Piperacillin Sod/ Tazobactam Sod 2.25 gm/Sodium Chloride 50 ml @ 100 mls/hr Q8HRS 01/04/21 22:00 01/06/21 06:14 100 MLS/HR Piperacillin Sod/ Tazobactam Sod 3.375 gm/Sodium Chloride 50 ml @ 100 mls/hr 1X ONCE 01/04/21 12:00 01/04/21 12:29 DC 01/04/21 12:12 100 MLS/HR Rocuronium [place] (Zemuron) 100 mg 1X ONCE 01/04/21 12:45 01/04/21 12:46 DC 01/04/21 11:33 100 MG Scopolamine (Transderm-Scop) 1 patch Q3DAYS 01/05/21 17:00 01/05/21 16:23 1 PATCH Sodium Bicarbonate (Sodium Bicarb Adult 8.4% Syr) 50 meq 1X ONCE 01/04/21 12:00 01/04/21 12:01 DC 01/04/21 12:55 50 MEQ Sodium Chloride (Normal Saline Flush) 3 ml QSHIFT PRN 01/04/21 14:00 Succinylcholine Chloride (Anectine) 100 mg 1X ONCE 01/04/21 12:45 01/04/21 12:46 DC 01/04/21 11:03 100 MG Valproic Acid 1000 mg/Dextrose 60 ml @ 60 mls/hr 1X ONCE 01/04/21 19:30 01/04/21 20:29 DC 01/04/21 19:30 60 MLS/HR Valproic Acid 500 mg/Dextrose 55 ml @ 55 mls/hr Q12HR 01/05/21 09:00 01/05/21 17:28 DC 01/05/21 09:40 55 MLS/HR Valproic Acid 750 mg/Dextrose 57.5 ml @ 57.5 mls/hr Q12HR 01/05/21 21:00 01/06/21 08:46 57.5 MLS/HR Lab Laboratory Tests Test 01/05/21 18:13 01/06/21 00:11 01/06/21 04:50 01/06/21 07:45 Glucose (Fingerstick) 152 mg/dL (70-99) 114 mg/dL (70-99) Sodium Level 148 mmol/L (136-145) Potassium Level 3.4 mmol/L (3.5-5.1) Chloride Level 111 mmol/L (98-107) Carbon Dioxide Level 28 mmol/L (21-32) Anion Gap 9 (6-14) Blood Urea Nitrogen 15 mg/dL (7-20) Creatinine 1.6 mg/dL (0.6-1.0) Estimated GFR (Cockcroft-Gault) 39.5 Glucose Level 121 mg/dL (70-99) Calcium Level 8.7 mg/dL (8.5-10.1) Phosphorus Level 2.8 mg/dL (2.6-4.7) Albumin 2.0 g/dL (3.4-5.0) O2 Saturation 99 % (92-99) Arterial Blood pH 7.50 (7.35-7.45) Arterial Blood pCO2 at Patient Temp 39 mmHg (35-46) Arterial Blood pO2 at Patient Temp 145 mmHg (65-108) Arterial Blood HCO3 30 mmol/L (21-28) Arterial Blood Base Excess 6 mmol/L (-3-3) FiO2 40 Test 01/06/21 08:20 01/06/21 13:31 White Blood Count 11.6 x10^3/uL (4.0-11.0) Red Blood Count 4.28 x10^6/uL (3.50-5.40) Hemoglobin 10.4 g/dL (12.0-15.5) Hematocrit 33.0 % (36.0-47.0) Mean Corpuscular Volume 77 fL (79-100) Mean Corpuscular Hemoglobin 24 pg (25-35) Mean Corpuscular Hemoglobin Concent 32 g/dL (31-37) Red Cell Distribution Width 16.3 % (11.5-14.5) Platelet Count 209 x10^3/uL (140-400) Neutrophils (%) (Auto) 79 % (31-73) Lymphocytes (%) (Auto) 11 % (24-48) Monocytes (%) (Auto) 9 % (0-9) Eosinophils (%) (Auto) 1 % (0-3) Basophils (%) (Auto) 1 % (0-3) Neutrophils # (Auto) 9.1 x10^3/uL (1.8-7.7) Lymphocytes # (Auto) 1.3 x10^3/uL (1.0-4.8) Monocytes # (Auto) 1.0 x10^3/uL (0.0-1.1) Eosinophils # (Auto) 0.1 x10^3/uL (0.0-0.7) Basophils # (Auto) 0.1 x10^3/uL (0.0-0.2) Sodium Level 149 mmol/L (136-145) Potassium Level 3.4 mmol/L (3.5-5.1) Chloride Level 111 mmol/L (98-107) Carbon Dioxide Level 29 mmol/L (21-32) Anion Gap 9 (6-14) Blood Urea Nitrogen 15 mg/dL (7-20) Creatinine 1.6 mg/dL (0.6-1.0) Estimated GFR (Cockcroft-Gault) 39.5 Glucose Level 114 mg/dL (70-99) Calcium Level 8.7 mg/dL (8.5-10.1) Glucose (Fingerstick) 121 mg/dL (70-99) Results All relevant outside records, renal labs, imaging studies, telemetry/EKG's were reviewed. Justicifation of Admission Dx: Justifications for Admission: Justification of Admission Dx: Yes RASHAAD CABRERA MD Jan 06, 2021 13:47
--- NOTE | 2021-01-06 15:26 | PDOC ---
PROGRESS NOTES DOS: DATE: 01/06/21 TIME: 15:26 Assessment Problems Medical Problems: (1) Acute renal failure Status: Acute (2) Altered mental status Status: Acute (3) Aspiration pneumonia Status: Acute (4) Hyperkalemia Status: Acute (5) Respiratory failure Status: Acute (6) Sepsis Status: Acute Plan This patient is 60-year-old woman with past medical history of multiple medical problems history of asthma coronary artery disease status post stenting multiple times chronic obstructive pulmonary disease congestive heart failure morbid obesity presented to emergency room with respiratory distress. Patient was brought via EMS she was found unresponsive by her family patient not feeling well for over 2 days prior to presentation. Patient was found unresponsive at home. Patient was intubated. Patient had a CT brain done did not show any evidence of acute intracranial etiology no evidence of acute hemorrhage or mass. No evidence of hydrocephalus changes noted for chronic small vessel ischemic disease. With the multiple medical problems with respiratory failure standing, coronary artery disease, renal failure, encephalopathy check for infectious metabolic etiology, concern for anoxic injury, aspiration pneumonia on antibiotics MRI of brain cannot be done due to current medical condition. Continue medical management Subjective Patient is intubated no new clinical seizures. Objective Vital Signs Date Time Temp Pulse Resp B/P (MAP) Pulse Ox O2 Delivery O2 Flow Rate FiO2 01/06/21 14:07 92 16 159/70 (99) 99 Ventilator 01/06/21 11:06 99.2 99.2 Intake and Output 01/06/21 07:00 Intake Total 3116.16 ml Output Total 1178 ml Balance 1938.16 ml Intake IV Total 1104.16 ml Tube Feeding 1001 ml Other 1011 ml Output Urine Total 1178 ml PHYSICAL EXAM PHYSICAL EXAMINATION: General: In acute distress. HEENT: Normal cephalic and non traumatic. Neck: No lymphadenopathy. No resistance. Cardiac: S1, S2, regular rate and rhythm. Pulmonary: On vent. Abdomen: Bowel sounds are normal. NEUROLOGICAL EXAMINATION: On vent. Unresponsiveness. Sedation Not orientated to time, place and person. Pupils 1 mm, decreased reaction to light stimuli. Corneal reflex: minimal. EOMI not elicited. CN: No acute findings. Neck: No resistance Muscle Tone: decreased. Muscle Strength: minimal movements noted to stimuli in right foot. DTR: 0-1 Sensory: Minimal response to pain stimuli. Plantar Reflex: No response bilaterally Cerebellar Signs: Not able to access. Review of Relevant I have reviewed the following items shady (where applicable) has been applied. Labs Laboratory Tests Test 01/04/21 15:50 01/04/21 15:56 01/04/21 20:29 01/04/21 20:30 Lactic Acid Level 2.2 mmol/L (0.4-2.0) Glucose (Fingerstick) 62 mg/dL (70-99) 108 mg/dL (70-99) Urine Collection Type Unknown Urine Color Yellow Urine Clarity Clear Urine pH 5.5 (<5.0-8.0) Urine Specific Marble 1.025 (1.000-1.030) Urine Protein >=300 mg/dL (NEG-TRACE) Urine Glucose (UA) Negative mg/dL (NEG) Urine Ketones (Stick) Trace mg/dL (NEG) Urine Blood Large (NEG) Urine Nitrite Negative (NEG) Urine Bilirubin Small (NEG) Urine Urobilinogen Dipstick 0.2 mg/dL (0.2 mg/dL) Urine Leukocyte Esterase Negative (NEG) Urine RBC >40 /HPF (0-2) Urine WBC >40 /HPF (0-4) Urine Squamous Epithelial Cells Few /LPF Urine Bacteria Moderate /HPF (0-FEW) Urine Cellular Casts Few /HPF Urine Hyaline Casts Few /HPF Urine Granular Casts Few /HPF Urine Mucus Slight /LPF Test 01/05/21 06:00 01/05/21 08:15 01/05/21 11:31 01/05/21 18:13 White Blood Count 13.0 x10^3/uL (4.0-11.0) Red Blood Count 4.53 x10^6/uL (3.50-5.40) Hemoglobin 11.0 g/dL (12.0-15.5) Hematocrit 34.9 % (36.0-47.0) Mean Corpuscular Volume 77 fL (79-100) Mean Corpuscular Hemoglobin 24 pg (25-35) Mean Corpuscular Hemoglobin Concent 32 g/dL (31-37) Red Cell Distribution Width 16.2 % (11.5-14.5) Platelet Count 219 x10^3/uL (140-400) Neutrophils (%) (Auto) 82 % (31-73) Lymphocytes (%) (Auto) 9 % (24-48) Monocytes (%) (Auto) 8 % (0-9) Eosinophils (%) (Auto) 0 % (0-3) Basophils (%) (Auto) 0 % (0-3) Neutrophils # (Auto) 10.7 x10^3/uL (1.8-7.7) Lymphocytes # (Auto) 1.2 x10^3/uL (1.0-4.8) Monocytes # (Auto) 1.0 x10^3/uL (0.0-1.1) Eosinophils # (Auto) 0.0 x10^3/uL (0.0-0.7) Basophils # (Auto) 0.1 x10^3/uL (0.0-0.2) Sodium Level 151 mmol/L (136-145) Potassium Level 3.9 mmol/L (3.5-5.1) Chloride Level 113 mmol/L (98-107) Carbon Dioxide Level 26 mmol/L (21-32) Anion Gap 12 (6-14) Blood Urea Nitrogen 17 mg/dL (7-20) Creatinine 2.1 mg/dL (0.6-1.0) Estimated GFR (Cockcroft-Gault) 28.9 BUN/Creatinine Ratio 8 (6-20) Glucose Level 109 mg/dL (70-99) Calcium Level 8.8 mg/dL (8.5-10.1) Phosphorus Level 3.7 mg/dL (2.6-4.7) Magnesium Level 2.2 mg/dL (1.8-2.4) Total Bilirubin 0.5 mg/dL (0.2-1.0) Aspartate Amino Transf (AST/SGOT) 49 U/L (15-37) Alanine Aminotransferase (ALT/SGPT) 18 U/L (14-59) Alkaline Phosphatase 87 U/L (46-116) Creatine Kinase 682 U/L (26-192) Total Protein 6.3 g/dL (6.4-8.2) Albumin 2.2 g/dL (3.4-5.0) Albumin/Globulin Ratio 0.5 (1.0-1.7) O2 Saturation 99 % (92-99) Arterial Blood pH 7.45 (7.35-7.45) Arterial Blood pCO2 at Patient Temp 39 mmHg (35-46) Arterial Blood pO2 at Patient Temp 152 mmHg (65-108) Arterial Blood HCO3 27 mmol/L (21-28) Arterial Blood Base Excess 3 mmol/L (-3-3) FiO2 50 Glucose (Fingerstick) 148 mg/dL (70-99) 152 mg/dL (70-99) Test 01/06/21 00:11 01/06/21 04:50 01/06/21 07:45 01/06/21 08:20 Glucose (Fingerstick) 114 mg/dL (70-99) Sodium Level 148 mmol/L (136-145) 149 mmol/L (136-145) Potassium Level 3.4 mmol/L (3.5-5.1) 3.4 mmol/L (3.5-5.1) Chloride Level 111 mmol/L (98-107) 111 mmol/L (98-107) Carbon Dioxide Level 28 mmol/L (21-32) 29 mmol/L (21-32) Anion Gap 9 (6-14) 9 (6-14) Blood Urea Nitrogen 15 mg/dL (7-20) 15 mg/dL (7-20) Creatinine 1.6 mg/dL (0.6-1.0) 1.6 mg/dL (0.6-1.0) Estimated GFR (Cockcroft-Gault) 39.5 39.5 Glucose Level 121 mg/dL (70-99) 114 mg/dL (70-99) Calcium Level 8.7 mg/dL (8.5-10.1) 8.7 mg/dL (8.5-10.1) Phosphorus Level 2.8 mg/dL (2.6-4.7) Albumin 2.0 g/dL (3.4-5.0) O2 Saturation 99 % (92-99) Arterial Blood pH 7.50 (7.35-7.45) Arterial Blood pCO2 at Patient Temp 39 mmHg (35-46) Arterial Blood pO2 at Patient Temp 145 mmHg (65-108) Arterial Blood HCO3 30 mmol/L (21-28) Arterial Blood Base Excess 6 mmol/L (-3-3) FiO2 40 White Blood Count 11.6 x10^3/uL (4.0-11.0) Red Blood Count 4.28 x10^6/uL (3.50-5.40) Hemoglobin 10.4 g/dL (12.0-15.5) Hematocrit 33.0 % (36.0-47.0) Mean Corpuscular Volume 77 fL (79-100) Mean Corpuscular Hemoglobin 24 pg (25-35) Mean Corpuscular Hemoglobin Concent 32 g/dL (31-37) Red Cell Distribution Width 16.3 % (11.5-14.5) Platelet Count 209 x10^3/uL (140-400) Neutrophils (%) (Auto) 79 % (31-73) Lymphocytes (%) (Auto) 11 % (24-48) Monocytes (%) (Auto) 9 % (0-9) Eosinophils (%) (Auto) 1 % (0-3) Basophils (%) (Auto) 1 % (0-3) Neutrophils # (Auto) 9.1 x10^3/uL (1.8-7.7) Lymphocytes # (Auto) 1.3 x10^3/uL (1.0-4.8) Monocytes # (Auto) 1.0 x10^3/uL (0.0-1.1) Eosinophils # (Auto) 0.1 x10^3/uL (0.0-0.7) Basophils # (Auto) 0.1 x10^3/uL (0.0-0.2) Test 01/06/21 13:31 Glucose (Fingerstick) 121 mg/dL (70-99) Laboratory Tests Test 01/05/21 18:13 01/06/21 00:11 01/06/21 04:50 01/06/21 07:45 Glucose (Fingerstick) 152 mg/dL (70-99) 114 mg/dL (70-99) Sodium Level 148 mmol/L (136-145) Potassium Level 3.4 mmol/L (3.5-5.1) Chloride Level 111 mmol/L (98-107) Carbon Dioxide Level 28 mmol/L (21-32) Anion Gap 9 (6-14) Blood Urea Nitrogen 15 mg/dL (7-20) Creatinine 1.6 mg/dL (0.6-1.0) Estimated GFR (Cockcroft-Gault) 39.5 Glucose Level 121 mg/dL (70-99) Calcium Level 8.7 mg/dL (8.5-10.1) Phosphorus Level 2.8 mg/dL (2.6-4.7) Albumin 2.0 g/dL (3.4-5.0) O2 Saturation 99 % (92-99) Arterial Blood pH 7.50 (7.35-7.45) Arterial Blood pCO2 at Patient Temp 39 mmHg (35-46) Arterial Blood pO2 at Patient Temp 145 mmHg (65-108) Arterial Blood HCO3 30 mmol/L (21-28) Arterial Blood Base Excess 6 mmol/L (-3-3) FiO2 40 Test 01/06/21 08:20 01/06/21 13:31 White Blood Count 11.6 x10^3/uL (4.0-11.0) Red Blood Count 4.28 x10^6/uL (3.50-5.40) Hemoglobin 10.4 g/dL (12.0-15.5) Hematocrit 33.0 % (36.0-47.0) Mean Corpuscular Volume 77 fL (79-100) Mean Corpuscular Hemoglobin 24 pg (25-35) Mean Corpuscular Hemoglobin Concent 32 g/dL (31-37) Red Cell Distribution Width 16.3 % (11.5-14.5) Platelet Count 209 x10^3/uL (140-400) Neutrophils (%) (Auto) 79 % (31-73) Lymphocytes (%) (Auto) 11 % (24-48) Monocytes (%) (Auto) 9 % (0-9) Eosinophils (%) (Auto) 1 % (0-3) Basophils (%) (Auto) 1 % (0-3) Neutrophils # (Auto) 9.1 x10^3/uL (1.8-7.7) Lymphocytes # (Auto) 1.3 x10^3/uL (1.0-4.8) Monocytes # (Auto) 1.0 x10^3/uL (0.0-1.1) Eosinophils # (Auto) 0.1 x10^3/uL (0.0-0.7) Basophils # (Auto) 0.1 x10^3/uL (0.0-0.2) Sodium Level 149 mmol/L (136-145) Potassium Level 3.4 mmol/L (3.5-5.1) Chloride Level 111 mmol/L (98-107) Carbon Dioxide Level 29 mmol/L (21-32) Anion Gap 9 (6-14) Blood Urea Nitrogen 15 mg/dL (7-20) Creatinine 1.6 mg/dL (0.6-1.0) Estimated GFR (Cockcroft-Gault) 39.5 Glucose Level 114 mg/dL (70-99) Calcium Level 8.7 mg/dL (8.5-10.1) Glucose (Fingerstick) 121 mg/dL (70-99) Microbiology 01/05/21 Gram Stain Evaluation - Final, Resulted 01/05/21 Respiratory Culture - Preliminary, Resulted 01/04/21 Urine Culture - Final, Complete 01/04/21 Blood Culture - Preliminary, Resulted NO GROWTH AFTER 2 DAYS Medications Current Medications Amiodarone HCl 450 mg/Dextrose 259 ml @ 33 mls/hr 1X ONCE IV Last administered on 01/04/21at 11:40; Start 01/04/21 at 11:15; Stop 01/04/21 at 19:05; Status DC Midazolam HCl 100 ml @ 1 mls/hr 1X ONCE IV Last administered on 01/04/21at 11:39; Start 01/04/21 at 11:30; Stop 01/05/21 at 09:51; Status DC Sodium Chloride 1,000 ml @ 1,000 mls/hr 1X ONCE IV Last administered on 01/04/21at 12:13; Start 01/04/21 at 11:45; Stop 01/04/21 at 12:44; Status DC Sodium Bicarbonate (Sodium Bicarb Adult 8.4% Syr) 50 meq 1X ONCE IV Last administered on 01/04/21at 12:55; Start 01/04/21 at 12:00; Stop 01/04/21 at 12:01; Status DC Dextrose (Dextrose 50%-Water Syringe) 25 gm 1X ONCE IV Last administered on 01/04/21at 12:53; Start 01/04/21 at 12:00; Stop 01/04/21 at 12:01; Status DC Insulin Human Regular (HumuLIN R VIAL) 10 unit 1X ONCE IV Last administered on 01/04/21at 12:52; Start 01/04/21 at 12:00; Stop 01/04/21 at 12:01; Status DC Piperacillin Sod/ Tazobactam Sod 3.375 gm/Sodium Chloride 50 ml @ 100 mls/hr 1X ONCE IV Last administered on 01/04/21at 12:12; Start 01/04/21 at 12:00; Stop 01/04/21 at 12:29; Status DC Succinylcholine Chloride (Anectine) 100 mg 1X ONCE IV Last administered on 01/04/21at 11:03; Start 01/04/21 at 12:45; Stop 01/04/21 at 12:46; Status DC Etomidate (Amidate) 20 mg 1X ONCE IV Last administered on 01/04/21at 11:02; Start 01/04/21 at 12:45; Stop 01/04/21 at 12:46; Status DC Rocuronium [place] (Zemuron) 100 mg 1X ONCE IV ; Start 01/04/21 at 12:45; Stop 01/04/21 at 12:46; Status Cancel Midazolam HCl (Versed) 5 mg 1X ONCE IV Last administered on 01/04/21at 11:30; Start 01/04/21 at 12:45; Stop 01/04/21 at 12:46; Status DC Rocuronium [place] (Zemuron) 100 mg 1X ONCE IV Last administered on 01/04/21at 11:33; Start 01/04/21 at 12:45; Stop 01/04/21 at 12:46; Status DC Ondansetron HCl (Zofran) 4 mg PRN Q8HRS PRN IV NAUSEA/VOMITING; Start 01/04/21 at 13:00; Stop 01/05/21 at 09:48; Status DC Sodium Chloride 1,000 ml @ 100 mls/hr Q10H IV Last administered on 01/05/21at 09:41; Start 01/04/21 at 13:00; Stop 01/05/21 at 12:59; Status DC Ondansetron HCl (Zofran) 4 mg PRN Q6HRS PRN IVP NAUSEA/VOMITING; Start 01/04/21 at 14:00 Famotidine (Pepcid Vial) 20 mg QHS IVP Last administered on 01/05/21at 21:11; S tart 01/04/21 at 21:00 Heparin Sodium (Porcine) (Heparin Sodium) 5,000 unit Q8HRS SQ Last administered on 01/06/21at 13:42; Start 01/04/21 at 14:00 Sodium Chloride (Normal Saline Flush) 3 ml QSHIFT PRN IV AFTER MEDS AND BLOOD DRAWS; Start 01/04/21 at 14:00 Bisacodyl (Dulcolax Supp) 10 mg PRN DAILY PRN AL CONSTIPATION; Start 01/04/21 at 14:00 Piperacillin Sod/ Tazobactam Sod (Zosyn Per Pharmacy) 1 each PRN DAILY PRN MC SEE COMMENTS; Start 01/04/21 at 14:00; Stop 01/04/21 at 17:48; Status DC Piperacillin Sod/ Tazobactam Sod 2.25 gm/Sodium Chloride 50 ml @ 100 mls/hr Q6HRS IV ; Start 01/04/21 at 18:00; Stop 01/04/21 at 17:49; Status DC Dextrose (Dextrose 50%-Water Syringe) 25 gm 1X ONCE IV Last administered on 01/04/21at 16:21; Start 01/04/21 at 16:15; Stop 01/04/21 at 16:16; Status DC Meropenem 500 mg/ Sodium Chloride 50 ml @ 100 mls/hr Q8HRS IV ; Start 01/04/21 at 18:00; Status Cancel Piperacillin Sod/ Tazobactam Sod 2.25 gm/Sodium Chloride 50 ml @ 100 mls/hr Q8HRS IV Last administered on 01/06/21at 13:42; Start 01/04/21 at 22:00 Linezolid/Dextrose 300 ml @ 300 mls/hr Q12HR IV Last administered on 01/06/21at 09:40; Start 01/04/21 at 21:00 Valproic Acid 500 mg/Dextrose 55 ml @ 55 mls/hr Q12HR IV Last administered on 01/05/21at 09:40; Start 01/05/21 at 09:00; Stop 01/05/21 at 17:28; Status DC Valproic Acid 1000 mg/Dextrose 60 ml @ 60 mls/hr 1X ONCE IV Last administered on 01/04/21at 19:30; Start 01/04/21 at 19:30; Stop 01/04/21 at 20:29; Status DC Lorazepam (Ativan Inj) 2 mg PRN Q2HRS PRN IVP ANXIETY / AGITATION Last administered on 01/05/21at 23:30; Start 01/04/21 at 19:30 Hydralazine HCl (Apresoline Inj) 10 mg PRN Q6HRS PRN IVP ELEVATED BP, SEE COMMENTS Last administered on 01/06/21at 10:40; Start 01/04/21 at 19:45 Amiodarone HCl 450 mg/Dextrose 259 ml @ 33 mls/hr CONT PRN IV SEE I/O RECORD Last administered on 01/05/21at 11:50; Start 01/04/21 at 20:15; Stop 01/05/21 at 11:50; Status DC Midazolam HCl 100 ml @ 1 mls/hr CONT PRN IV SEE I/O RECORD Last administered on 01/05/21at 02:00; Start 01/05/21 at 02:00 Daptomycin 600 mg/ Sodium Chloride 50 ml @ 100 mls/hr Q48H IV Last administered on 01/05/21at 16:46; Start 01/05/21 at 16:00 Scopolamine (Transderm-Scop) 1 patch Q3DAYS TD Last administered on 01/05/21at 16:23; Start 01/05/21 at 17:00 Valproic Acid 750 mg/Dextrose 57.5 ml @ 57.5 mls/hr Q12HR IV Last administered on 01/06/21at 08:46; Start 01/05/21 at 21:00 Insulin Human Lispro (HumaLOG) 0-5 UNITS TIDWMEALS SQ Last administered on 01/05/21at 18:27; Start 01/05/21 at 18:30; Stop 01/06/21 at 08:42; Status DC Dextrose (Dextrose 50%-Water Syringe) 12.5 gm PRN Q15MIN PRN IV SEE COMMENTS; Start 01/05/21 at 18:15 Amiodarone HCl 450 mg/Dextrose 259 ml @ 0 mls/hr 1X ONCE IV Last administered on 01/06/21at 02:00; Start 01/06/21 at 02:00; Stop 01/06/21 at 02:01; Status DC Insulin Human Lispro (HumaLOG) 0-5 UNITS Q6HRS SQ ; Start 01/06/21 at 12:00 Active Scripts Active Pantoprazole Sodium (Pantoprazole Sodium) 40 Mg Tablet.dr 40 Mg PO BIDAC 30 Days Clopidogrel (Clopidogrel Bisulfate) 75 Mg Tablet 75 Mg PO DAILYWBKFT 75 Days Reported Voltaren (Diclofenac Sodium) 100 Gm Gel..gram. 1 Gm TP QID 30 Days apply to affected area(s) Oxycodone Hcl 5 Mg Capsule 5 Mg PO PRN Q6HRS PRN Nystatin 15 Gm Powder 1 Chio TP BID 7 Days apply to affected area(s) Ondansetron Odt (Ondansetron) 4 Mg Tab.rapdis 1 Tab PO PRN Q8HRS PRN Reglan (Metoclopramide Hcl) 10 Mg Tablet 1 Tab PO QID 30 Days before food and bedtime Losartan Potassium 100 Mg Tablet 100 Mg PO DAILY Aspirin 325 Mg Tablet 1 Tab PO DAILY Metformin Hcl 500 Mg Tablet 500 Mg PO BIDWMEALS Bumetanide 1 Mg Tablet 1 Mg PO BID Insulin Aspart 100 Unit/1 Ml Vial 60 Unit SQ TIDAC novolg flex pen Isosorbide Mononitrate Er (Isosorbide Mononitrate) 120 Mg Tab.er.24h 120 Mg PO DAILY NITROGLYCERIN SubLingual (Nitroglycerin) 0.4 Mg Tab.subl 0.4 Mg SL PRN Q5MIN PRN Albuterol Sulfate Neb Soln (Albuterol Sulfate) 2.5 Mg/3 Ml Vial.neb 2.5 Mg NEB Q4-6HRS PRN Levemir Flextouch (Insulin Detemir) 100 Unit/1 Ml Insuln.pen 60 Unit SQ HS Hydralazine Hcl 25 Mg Tablet 25 Mg PO BID Fluticasone Propionate Nasal Matthews (Fluticasone Propionate) 16 Gm Matthews.susp 2 Matthews NS DAILY Zolpidem Tartrate 5 Mg Tablet 5 Mg PO PRN QHS PRN Amlodipine Besylate 10 Mg Tablet 10 Mg PO DAILY Gabapentin 600 Mg Tablet 600 Mg PO BID Potassium Chloride (Potassium Chloride) 20 Meq Tablet.er 20 Meq PO BID Proair Respiclick (Albuterol Sulfate) 90 Mcg Aer.pow.ba 2 Puff IH PRN Q4-6HRS PRN Cyclobenzaprine Hcl 10 Mg Tablet 1 Tab PO BID PRN Requip (Ropinirole Hcl) 1 Mg Tablet 1 Tab PO QHS Crestor (Rosuvastatin Calcium) 20 Mg Tablet 20 Mg PO HS LAST DOSE: 10/01/15 BEDTIME NEXT DOSE: 10/02/15 BEDTIME Oxybutynin Chloride 5 Mg Tablet 1 Tab PO DAILY LAST DOSE: 10/02/15 AM NEXT DOSE: 3/16/16 AM Vitals/I & O Vital Sign - Last 24 Hours 01/05/21 01/05/21 01/05/21 01/05/21 16:00 16:00 17:00 17:02 Temp 99.4 99.4 Pulse 98 92 Resp 21 19 B/P (MAP) 126/58 (80) 144/60 (88) Pulse Ox 99 99 97 O2 Delivery Mechanical Ventilator Ventilator Ventilator Ventilator 01/05/21 01/05/21 01/05/21 01/05/21 18:00 19:00 20:00 20:00 Temp 99.7 99.7 Pulse 98 93 91 Resp 19 19 18 B/P (MAP) 161/70 (100) 146/56 (86) 133/58 (83) Pulse Ox 99 98 98 O2 Delivery Ventilator Ventilator Mechanical Ventilator Ventilator 01/05/21 01/05/21 01/05/21 01/05/21 20:03 21:00 21:24 22:00 Pulse 81 82 Resp 19 B/P (MAP) 116/49 (71) 137/68 (91) Pulse Ox 98 99 99 99 O2 Delivery Ventilator Ventilator Ventilator Ventilator 01/05/21 01/05/21 01/05/21 01/05/21 23:00 23:34 23:58 23:58 Temp 99.2 99.2 Pulse 76 86 87 Resp 20 18 B/P (MAP) 131/59 (83) 161/117 125/55 (78) Pulse Ox 99 99 O2 Delivery Ventilator Mechanical Ventilator Ventilator 01/06/21 01/06/21 01/06/21 01/06/21 00:00 01:00 02:00 02:35 Pulse 81 84 Resp 20 20 B/P (MAP) 100/48 (65) 125/67 (86) Pulse Ox 100 97 99 99 O2 Delivery Ventilator Ventilator Ventilator Ventilator 01/06/21 01/06/21 01/06/21 01/06/21 03:00 04:00 04:00 05:00 Temp 99.7 99.7 Pulse 90 81 92 Resp 20 18 20 B/P (MAP) 133/64 (87) 137/64 (88) 159/59 (92) Pulse Ox 99 99 99 O2 Delivery Ventilator Ventilator Mechanical Ventilator Ventilator 01/06/21 01/06/21 01/06/21 01/06/21 05:25 06:00 07:23 07:45 Temp 98.4 98.4 Pulse 83 79 Resp 20 18 B/P (MAP) 132/65 (87) 120/65 (83) Pulse Ox 97 99 98 98 O2 Delivery Ventilator Ventilator Ventilator Ventilator 01/06/21 01/06/21 01/06/21 01/06/21 08:33 08:43 09:03 09:35 Pulse 78 80 Resp 18 18 B/P (MAP) 142/72 (95) 148/66 (93) Pulse Ox 96 99 97 O2 Delivery Ventilator Mechanical Ventilator Ventilator Ventilator 01/06/21 01/06/21 01/06/21 01/06/21 10:31 10:40 11:06 11:48 Temp 99.2 99.2 Pulse 90 90 92 Resp 17 19 B/P (MAP) 173/78 (109) 173/78 151/66 (94) Pulse Ox 99 98 97 O2 Delivery Ventilator Ventilator Ventilator 01/06/21 01/06/21 01/06/21 01/06/21 11:56 12:26 13:04 14:07 Pulse 92 90 92 Resp 17 16 16 B/P (MAP) 128/61 (83) 150/66 (94) 159/70 (99) Pulse Ox 98 97 99 O2 Delivery Mechanical Ventilator Ventilator Ventilator Ventilator Intake and Output 01/05/21 01/05/21 01/06/21 15:00 23:00 07:00 Intake Total 150 ml 2138.66 ml 827.5 ml Output Total 330 ml 578 ml 270 ml Balance -180 ml 1560.66 ml 557.5 ml Justicifation of Admission Dx: Justifications for Admission: Justification of Admission Dx: Yes KADI MILLER MD Jan 06, 2021 15:26
[2021-01-06] MEDS: FAMOTIDINE 20 MG/2 ML VIAL IVP SCH (20:37)
[2021-01-07] VITALS (24 sets, daily range): BP systolic 95–194; BP diastolic 44–81
[2021-01-07] MEDS: HEPARIN for SUB-Q USE 5,000 UNIT/ML VIAL. SQ SCH ×3 (05:45→21:23)
[2021-01-07] MEDS: PIPERACILLIN/TAZOBACTAM 2.25 GM in IV NORMAL SALINE 50ML 50 ML IV SCH ×3 (05:45→22:17)
[2021-01-07] MEDS: INSULIN LISPRO 300 UNITS/3 ML VIAL. SQ SCH ×4 (05:47→17:36)
[2021-01-07 06:12] LABS: BASO % 0 % (0-3); CALCIUM 8.5 mg/dL (8.5-10.1); CREATININE 1.4 mg/dL (0.6-1.0); EOS # 0.2 x10^3/uL (0.0-0.7); EOS % 2 % (0-3); GFR 46.1; HEMATOCRIT 32.3 % (36.0-47.0); HEMOGLOBIN 10.1 g/dL (12.0-15.5); LYMPH # 1.1 x10^3/uL (1.0-4.8); LYMPH % 12 % (24-48); MEAN CORPUSCULAR HEMOGLOBIN 24 pg (25-35); MEAN CORPUSCULAR HGB CONC 31 g/dL (31-37); MEAN CORPUSCULAR VOLUME 78 fL (79-100); MONO # 0.9 x10^3/uL (0.0-1.1); MONO % 10 % (0-9); NEUT # 6.9 x10^3/uL (1.8-7.7); NEUT % 76 % (31-73); PLATELET COUNT 198 x10^3/uL (140-400); POTASSIUM 3.3 mmol/L (3.5-5.1); RED BLOOD COUNT 4.14 x10^6/uL (3.50-5.40); RED CELL DISTRIBUTION WIDTH 16.3 % (11.5-14.5); WHITE BLOOD COUNT 9.2 x10^3/uL (4.0-11.0)
--- NOTE | 2021-01-07 07:22 | PDOC ---
Infectious Disease Note Subjective: Subjective Patient sedated Remains afebrile Discussed with nursing staff Vital Signs: Vital Signs Vital Signs Date Time Temp Pulse Resp B/P (MAP) Pulse Ox O2 Delivery O2 Flow Rate FiO2 01/07/21 07:19 74 17 153/66 (95) 100 Ventilator 01/07/21 04:00 98.4 98.4 Physical Exam: PHYSICAL EXAM GENERAL: Intubated/sedated in [facility]. HEENT: Normocephalic, atraumatic. ETT /OGT + NECK: Supple though fullness due to body habitus. LUNGS: Decreased breath sounds. No wheezing. HEART: S1, S2. Distant heart sounds. ABDOMEN: Obese. Bowel sounds present. EXTREMITIES: Minimal edema. No cyanosis. NEUROLOGIC: Intubated, sedated. Left IJ clean Medications: Inpatient Meds: Medications reviewed. Labs: Lab Laboratory Tests Test 01/06/21 07:45 01/06/21 08:20 01/06/21 13:31 01/06/21 17:13 O2 Saturation 99 % (92-99) Arterial Blood pH 7.50 (7.35-7.45) Arterial Blood pCO2 at Patient Temp 39 mmHg (35-46) Arterial Blood pO2 at Patient Temp 145 mmHg (65-108) Arterial Blood HCO3 30 mmol/L (21-28) Arterial Blood Base Excess 6 mmol/L (-3-3) FiO2 40 White Blood Count 11.6 x10^3/uL (4.0-11.0) Red Blood Count 4.28 x10^6/uL (3.50-5.40) Hemoglobin 10.4 g/dL (12.0-15.5) Hematocrit 33.0 % (36.0-47.0) Mean Corpuscular Volume 77 fL (79-100) Mean Corpuscular Hemoglobin 24 pg (25-35) Mean Corpuscular Hemoglobin Concent 32 g/dL (31-37) Red Cell Distribution Width 16.3 % (11.5-14.5) Platelet Count 209 x10^3/uL (140-400) Neutrophils (%) (Auto) 79 % (31-73) Lymphocytes (%) (Auto) 11 % (24-48) Monocytes (%) (Auto) 9 % (0-9) Eosinophils (%) (Auto) 1 % (0-3) Basophils (%) (Auto) 1 % (0-3) Neutrophils # (Auto) 9.1 x10^3/uL (1.8-7.7) Lymphocytes # (Auto) 1.3 x10^3/uL (1.0-4.8) Monocytes # (Auto) 1.0 x10^3/uL (0.0-1.1) Eosinophils # (Auto) 0.1 x10^3/uL (0.0-0.7) Basophils # (Auto) 0.1 x10^3/uL (0.0-0.2) Sodium Level 149 mmol/L (136-145) Potassium Level 3.4 mmol/L (3.5-5.1) Chloride Level 111 mmol/L (98-107) Carbon Dioxide Level 29 mmol/L (21-32) Anion Gap 9 (6-14) Blood Urea Nitrogen 15 mg/dL (7-20) Creatinine 1.6 mg/dL (0.6-1.0) Estimated GFR (Cockcroft-Gault) 39.5 Glucose Level 114 mg/dL (70-99) Calcium Level 8.7 mg/dL (8.5-10.1) Glucose (Fingerstick) 121 mg/dL (70-99) 124 mg/dL (70-99) Test 01/06/21 23:20 01/07/21 05:41 01/07/21 05:50 Glucose (Fingerstick) 132 mg/dL (70-99) 115 mg/dL (70-99) White Blood Count 9.2 x10^3/uL (4.0-11.0) Red Blood Count 4.14 x10^6/uL (3.50-5.40) Hemoglobin 10.1 g/dL (12.0-15.5) Hematocrit 32.3 % (36.0-47.0) Mean Corpuscular Volume 78 fL (79-100) Mean Corpuscular Hemoglobin 24 pg (25-35) Mean Corpuscular Hemoglobin Concent 31 g/dL (31-37) Red Cell Distribution Width 16.3 % (11.5-14.5) Platelet Count 198 x10^3/uL (140-400) Neutrophils (%) (Auto) 76 % (31-73) Lymphocytes (%) (Auto) 12 % (24-48) Monocytes (%) (Auto) 10 % (0-9) Eosinophils (%) (Auto) 2 % (0-3) Basophils (%) (Auto) 0 % (0-3) Neutrophils # (Auto) 6.9 x10^3/uL (1.8-7.7) Lymphocytes # (Auto) 1.1 x10^3/uL (1.0-4.8) Monocytes # (Auto) 0.9 x10^3/uL (0.0-1.1) Eosinophils # (Auto) 0.2 x10^3/uL (0.0-0.7) Basophils # (Auto) 0.0 x10^3/uL (0.0-0.2) Sodium Level 148 mmol/L (136-145) Potassium Level 3.3 mmol/L (3.5-5.1) Chloride Level 111 mmol/L (98-107) Carbon Dioxide Level 29 mmol/L (21-32) Anion Gap 8 (6-14) Blood Urea Nitrogen 14 mg/dL (7-20) Creatinine 1.4 mg/dL (0.6-1.0) Estimated GFR (Cockcroft-Gault) 46.1 Glucose Level 113 mg/dL (70-99) Calcium Level 8.5 mg/dL (8.5-10.1) Objective: Assessment: 1. Fever. 2. Leukocytosis and lactic acidosis. 3. Acute hypoxic respiratory failure. 4. Suspected aspiration pneumonia. Sputum culture positive for staph aureus 5. Status post cardiopulmonary arrest. 6. Questionable seizures. Encephalopathy 7. Diabetes mellitus 2. 8. Morbid obesity. 9. Obstructive sleep apnea. 10. Coronary artery disease. 11. Chronic kidney disease 12. Hypernatremia and hyperkalemia. 13 Gram-positive bacteremia bacteremia 2 out of 4 bottles present on admission ID pending Plan: Plan of Care 1. Continue daptomycin ,Zosyn and Zyvox. 2. Follow up labs and cultures. Follow-up GPC in blood culture 01/04 POA Follow-up repeat blood cultures 01/06 3. Continue supportive care. 4. Critically ill. 5. Prognosis poor. Discussed with nursing staff LUDY CRUZ MD Jan 07, 2021 07:21
[2021-01-07 07:57] LABS: BASE EXCESS ABG 7 mmol/L (-3-3); HCO3 ABG 32 mmol/L (21-28); PCO2 ABG 46 mmHg (35-46); PO2 ABG 142 mmHg (65-108); SAT O2 ABG 99 % (92-99)
[2021-01-07 08:00] LABS: FIO2 ABG 40
--- NOTE | 2021-01-07 08:19 | PDOC ---
[employer] PROGRESS NOTE Date of Service DOS: DATE: 01/07/21 TIME: 08:11 Chief Complaint Chief Complaint Assessment/Plan Respiratory failure SUSPECT aspiration pneumonia Mild prominent interstitial lung markings likely mild congestive changes or interstitial infiltrates Ventricular fib arrest - on amio CAD Extensive stenting of the LAD with the most significant area of restenosis being a 35% lesion in the mid vessel. Mild disease in the right coronary artery. PCI to the LAD and ramus on 10/2017. Cardiac cath on 12/12/2020 with no new disease. Acute renal failure/ MIRIAM Hyperkalemia Aspiration pneumonia Altered mental status Sepsis MORBID OBESITY Severe protein malnutrition HTN urgency - Cont meds, prn IV hydralazine Hyperlipidemia - on statin DM2 - BG controlled. Will cut her lantus given NPO status. A1c 5.6 CKD3 - with MIRIAM, above DIONNE wtih CPAP - asked to bring home BIPAP in if she is extubated COPD - on chronic home O2, will continue current meds Chronic systolic CHF (reduced EF to 42% 12/2019) - cont meds. RLS Peripheral neuropathy ICU BED Consult cardiology Nephrology consult ID CONSULT PULM CONSULT VENT SUPPORT DVT PROPHYLAXIS EMPERIC IV ANTIBIOTICS, Zosyn pending id consult Neurology consult History of Present Illness History of Present Illness Ms Castro is a 60 year old female w/ PMHx Asthma, CAD s/p stenting x6, CHF, COPD, Diabetes-Type II, High Cholesterol, Hypertension, neuropathy, morbid obesity, RLS, insomnia who presented to ER after she was brought here by EMS from home after she was found unresponsive in her bed by her family. Patient was last known normal was 9 AM on 01/03/2021. family tried to call her but could not get a hold of her so they show up to her house, found her unresponsive in her bed. Per family, patient had a CPAP machine on but the mask slid off her face, there was lot of mucus and material around her face and on her neck area. Patient was responsive to painful stimuli but was very confused, did not follow command. EMS were called, they found her in respiratory distress, GCS of 7-8, they bagged her and brought her here. Upon arrival to room, patient was unresponsive to verbal, severe respiratory distress, need emergent intubation. During the difficult intubation patient became bradycardic and CODE BLUE was initiated. Patient subsequently went into ventricular fibrillation, underwent shock therapy and was initiated on intravenous amiodarone infusion and admitted to ICU. She has been admitted to [facility] x2 for intractable nausea and vomiting and PMC once has had this as well as intense pruritis for 6 months. Was seen and treated for same in November, underwent cardiac cath and GI consultation at the time, was discharged home. Her family stated that patient was seen here 2 days prior for epigastric abdominal pain. It was recommended that she need to stay in the hospital however patient did not want to stay in the hospital so she went home. AMA. 01/05: No acute events overnight. Patient seen and examined bedside. Patient remains intubated. Without sedation. Vent settings at 18/450/40/5. Patient is not responding to painful stimuli at this time. There is a lot of secretions. Currently not on any vasopressors 01/06: No acute events overnight. Patient withdraws to pain. Still intubated with vent settings at 16/450/40/5. Not on any sedation at this time. Patient's chart, labs, images were reviewed and discussed with RN No overnight events. Afebrile. On vent with no sedation for 48 hours FiO2 40% PEEP of 5. Not requiring vasopressors. Not making meaningful eye contact or meaningful movement. Minimal reflexes. Breathing over the vent. Discussed with son, Lance overall poor prognosis given what is likely anoxic encephalopathy. He wants to discuss with his aunt Liss and sister Camille future goals of care. Vitals/I&O Vitals/I&O: Vital Signs Date Time Temp Pulse Resp B/P (MAP) Pulse Ox O2 Delivery O2 Flow Rate FiO2 01/07/21 07:40 100 Ventilator 01/07/21 07:19 74 17 153/66 (95) 01/07/21 04:00 98.4 98.4 I & O 01/06/21 01/06/21 01/07/21 15:00 23:00 07:00 Intake Total 707.5 ml 1369 ml 1012 ml Output Total 315 ml 330 ml 230 ml Balance 392.5 ml 1039 ml 782 ml Physical Exam Physical Exam: GENERAL: Intubated/sedated in mittens. HEENT: Normocephalic, atraumatic. ETT /OGT + NECK: Supple though fullness due to body habitus. LUNGS: Decreased breath sounds. No wheezing. HEART: S1, S2. Distant heart sounds. ABDOMEN: Obese. Bowel sounds present. EXTREMITIES: Minimal edema. No cyanosis. NEUROLOGIC: Intubated, sedated. Left IJ clean General: Other Heart: Regular rate Lungs: Crackles Abdomen: Soft Extremities: Other (Trace edema) Labs Labs: Laboratory Tests Test 01/06/21 08:20 01/06/21 13:31 01/06/21 17:13 01/06/21 23:20 White Blood Count 11.6 x10^3/uL (4.0-11.0) Red Blood Count 4.28 x10^6/uL (3.50-5.40) Hemoglobin 10.4 g/dL (12.0-15.5) Hematocrit 33.0 % (36.0-47.0) Mean Corpuscular Volume 77 fL (79-100) Mean Corpuscular Hemoglobin 24 pg (25-35) Mean Corpuscular Hemoglobin Concent 32 g/dL (31-37) Red Cell Distribution Width 16.3 % (11.5-14.5) Platelet Count 209 x10^3/uL (140-400) Neutrophils (%) (Auto) 79 % (31-73) Lymphocytes (%) (Auto) 11 % (24-48) Monocytes (%) (Auto) 9 % (0-9) Eosinophils (%) (Auto) 1 % (0-3) Basophils (%) (Auto) 1 % (0-3) Neutrophils # (Auto) 9.1 x10^3/uL (1.8-7.7) Lymphocytes # (Auto) 1.3 x10^3/uL (1.0-4.8) Monocytes # (Auto) 1.0 x10^3/uL (0.0-1.1) Eosinophils # (Auto) 0.1 x10^3/uL (0.0-0.7) Basophils # (Auto) 0.1 x10^3/uL (0.0-0.2) Sodium Level 149 mmol/L (136-145) Potassium Level 3.4 mmol/L (3.5-5.1) Chloride Level 111 mmol/L (98-107) Carbon Dioxide Level 29 mmol/L (21-32) Anion Gap 9 (6-14) Blood Urea Nitrogen 15 mg/dL (7-20) Creatinine 1.6 mg/dL (0.6-1.0) Estimated GFR (Cockcroft-Gault) 39.5 Glucose Level 114 mg/dL (70-99) Calcium Level 8.7 mg/dL (8.5-10.1) Glucose (Fingerstick) 121 mg/dL (70-99) 124 mg/dL (70-99) 132 mg/dL (70-99) Test 01/07/21 05:41 01/07/21 05:50 01/07/21 07:40 Glucose (Fingerstick) 115 mg/dL (70-99) White Blood Count 9.2 x10^3/uL (4.0-11.0) Red Blood Count 4.14 x10^6/uL (3.50-5.40) Hemoglobin 10.1 g/dL (12.0-15.5) Hematocrit 32.3 % (36.0-47.0) Mean Corpuscular Volume 78 fL (79-100) Mean Corpuscular Hemoglobin 24 pg (25-35) Mean Corpuscular Hemoglobin Concent 31 g/dL (31-37) Red Cell Distribution Width 16.3 % (11.5-14.5) Platelet Count 198 x10^3/uL (140-400) Neutrophils (%) (Auto) 76 % (31-73) Lymphocytes (%) (Auto) 12 % (24-48) Monocytes (%) (Auto) 10 % (0-9) Eosinophils (%) (Auto) 2 % (0-3) Basophils (%) (Auto) 0 % (0-3) Neutrophils # (Auto) 6.9 x10^3/uL (1.8-7.7) Lymphocytes # (Auto) 1.1 x10^3/uL (1.0-4.8) Monocytes # (Auto) 0.9 x10^3/uL (0.0-1.1) Eosinophils # (Auto) 0.2 x10^3/uL (0.0-0.7) Basophils # (Auto) 0.0 x10^3/uL (0.0-0.2) Sodium Level 148 mmol/L (136-145) Potassium Level 3.3 mmol/L (3.5-5.1) Chloride Level 111 mmol/L (98-107) Carbon Dioxide Level 29 mmol/L (21-32) Anion Gap 8 (6-14) Blood Urea Nitrogen 14 mg/dL (7-20) Creatinine 1.4 mg/dL (0.6-1.0) Estimated GFR (Cockcroft-Gault) 46.1 Glucose Level 113 mg/dL (70-99) Calcium Level 8.5 mg/dL (8.5-10.1) O2 Saturation 99 % (92-99) Arterial Blood pH 7.46 (7.35-7.45) Arterial Blood pCO2 at Patient Temp 46 mmHg (35-46) Arterial Blood pO2 at Patient Temp 142 mmHg (65-108) Arterial Blood HCO3 32 mmol/L (21-28) Arterial Blood Base Excess 7 mmol/L (-3-3) FiO2 40 Assessment and Plan Assessmemt and Plan Problems Medical Problems: (1) Acute renal failure Status: Acute (2) Altered mental status Status: Acute (3) Aspiration pneumonia Status: Acute (4) Hyperkalemia Status: Acute (5) Respiratory failure Status: Acute (6) Sepsis Status: Acute Comment Review of Relevant I have reviewed the following items shady (where applicable) has been applied. Medications: Current Medications Medications (Trade) Dose Ordered Sig/Lui Route PRN Reason Start Time Stop Time Status Last Admin Dose Admin Amiodarone HCl 450 mg/Dextrose 259 ml @ 0 mls/hr 1X ONCE IV 01/06/21 17:00 01/06/21 17:01 DC 01/06/21 17:05 Justifications for Admission Other Justification cardiac arrest DANY CORTES MD Jan 07, 2021 08:19
[2021-01-07] MEDS: VALPROIC ACID (AS SODIUM SALT) 750 MG in IV DEXTROSE 5% 50 ML IV SCH ×2 (08:44→21:24)
--- NOTE | 2021-01-07 09:15 | PDOC ---
PROGRESS NOTES Date of Service DATE: 01/07/21 TIME: 09:10 Assessment Problems Medical Problems: (1) Acute renal failure Status: Acute (2) Altered mental status Status: Acute (3) Aspiration pneumonia Status: Acute (4) Hyperkalemia Status: Acute (5) Respiratory failure Status: Acute (6) Sepsis Status: Acute Metabolic encephalopathy, only has basic brainstem reflexes Respiratory failure, aspiration pneumonia, possible sepsis Acute STEMI, coronary artery disease status post stenting, chronic obstructive pulmonary disease, asthma, congestive heart failure, morbid obesity, renal failure, hyperkalemia, severe protein malnutrition, hypertensive urgency, hyperlipidemia, type 2 diabetes, obstructive sleep apnea, restless leg syndrome, peripheral neuropathy Plan Continue treating medical issues Overall prognosis is poor, but patient is not brain Subjective None Objective Vital Signs Date Time Temp Pulse Resp B/P (MAP) Pulse Ox O2 Delivery O2 Flow Rate FiO2 01/07/21 08:35 Mechanical Ventilator 01/07/21 08:18 98.8 72 16 164/65 (98) 100 98.8 Intake and Output 01/07/21 07:00 Intake Total 3088.5 ml Output Total 875 ml Balance 2213.5 ml Intake IV Total 1270.5 ml Tube Feeding 1518 ml Other 300 ml Output Urine Total 875 ml PHYSICAL EXAM Has been off sedation since 01/05, no response to pain Triggers ventilator Pupils unreactive EOMI. CN: no focal findings. Muscle tone: normal. Muscle strength: No response DTR: 1+ Plantar reflex: Silent Gait: not examined Sensory exam: Not cooperative. Cerebellar: Not cooperative Review of Relevant I have reviewed the following items shady (where applicable) has been applied. Labs Laboratory Tests Test 01/05/21 11:31 01/05/21 18:13 01/06/21 00:11 01/06/21 04:50 Glucose (Fingerstick) 148 mg/dL (70-99) 152 mg/dL (70-99) 114 mg/dL (70-99) Sodium Level 148 mmol/L (136-145) Potassium Level 3.4 mmol/L (3.5-5.1) Chloride Level 111 mmol/L (98-107) Carbon Dioxide Level 28 mmol/L (21-32) Anion Gap 9 (6-14) Blood Urea Nitrogen 15 mg/dL (7-20) Creatinine 1.6 mg/dL (0.6-1.0) Estimated GFR (Cockcroft-Gault) 39.5 Glucose Level 121 mg/dL (70-99) Calcium Level 8.7 mg/dL (8.5-10.1) Phosphorus Level 2.8 mg/dL (2.6-4.7) Albumin 2.0 g/dL (3.4-5.0) Test 01/06/21 07:45 01/06/21 08:20 01/06/21 13:31 01/06/21 17:13 O2 Saturation 99 % (92-99) Arterial Blood pH 7.50 (7.35-7.45) Arterial Blood pCO2 at Patient Temp 39 mmHg (35-46) Arterial Blood pO2 at Patient Temp 145 mmHg (65-108) Arterial Blood HCO3 30 mmol/L (21-28) Arterial Blood Base Excess 6 mmol/L (-3-3) FiO2 40 White Blood Count 11.6 x10^3/uL (4.0-11.0) Red Blood Count 4.28 x10^6/uL (3.50-5.40) Hemoglobin 10.4 g/dL (12.0-15.5) Hematocrit 33.0 % (36.0-47.0) Mean Corpuscular Volume 77 fL (79-100) Mean Corpuscular Hemoglobin 24 pg (25-35) Mean Corpuscular Hemoglobin Concent 32 g/dL (31-37) Red Cell Distribution Width 16.3 % (11.5-14.5) Platelet Count 209 x10^3/uL (140-400) Neutrophils (%) (Auto) 79 % (31-73) Lymphocytes (%) (Auto) 11 % (24-48) Monocytes (%) (Auto) 9 % (0-9) Eosinophils (%) (Auto) 1 % (0-3) Basophils (%) (Auto) 1 % (0-3) Neutrophils # (Auto) 9.1 x10^3/uL (1.8-7.7) Lymphocytes # (Auto) 1.3 x10^3/uL (1.0-4.8) Monocytes # (Auto) 1.0 x10^3/uL (0.0-1.1) Eosinophils # (Auto) 0.1 x10^3/uL (0.0-0.7) Basophils # (Auto) 0.1 x10^3/uL (0.0-0.2) Sodium Level 149 mmol/L (136-145) Potassium Level 3.4 mmol/L (3.5-5.1) Chloride Level 111 mmol/L (98-107) Carbon Dioxide Level 29 mmol/L (21-32) Anion Gap 9 (6-14) Blood Urea Nitrogen 15 mg/dL (7-20) Creatinine 1.6 mg/dL (0.6-1.0) Estimated GFR (Cockcroft-Gault) 39.5 Glucose Level 114 mg/dL (70-99) Calcium Level 8.7 mg/dL (8.5-10.1) Glucose (Fingerstick) 121 mg/dL (70-99) 124 mg/dL (70-99) Test 01/06/21 23:20 01/07/21 05:41 01/07/21 05:50 01/07/21 07:40 Glucose (Fingerstick) 132 mg/dL (70-99) 115 mg/dL (70-99) White Blood Count 9.2 x10^3/uL (4.0-11.0) Red Blood Count 4.14 x10^6/uL (3.50-5.40) Hemoglobin 10.1 g/dL (12.0-15.5) Hematocrit 32.3 % (36.0-47.0) Mean Corpuscular Volume 78 fL (79-100) Mean Corpuscular Hemoglobin 24 pg (25-35) Mean Corpuscular Hemoglobin Concent 31 g/dL (31-37) Red Cell Distribution Width 16.3 % (11.5-14.5) Platelet Count 198 x10^3/uL (140-400) Neutrophils (%) (Auto) 76 % (31-73) Lymphocytes (%) (Auto) 12 % (24-48) Monocytes (%) (Auto) 10 % (0-9) Eosinophils (%) (Auto) 2 % (0-3) Basophils (%) (Auto) 0 % (0-3) Neutrophils # (Auto) 6.9 x10^3/uL (1.8-7.7) Lymphocytes # (Auto) 1.1 x10^3/uL (1.0-4.8) Monocytes # (Auto) 0.9 x10^3/uL (0.0-1.1) Eosinophils # (Auto) 0.2 x10^3/uL (0.0-0.7) Basophils # (Auto) 0.0 x10^3/uL (0.0-0.2) Sodium Level 148 mmol/L (136-145) Potassium Level 3.3 mmol/L (3.5-5.1) Chloride Level 111 mmol/L (98-107) Carbon Dioxide Level 29 mmol/L (21-32) Anion Gap 8 (6-14) Blood Urea Nitrogen 14 mg/dL (7-20) Creatinine 1.4 mg/dL (0.6-1.0) Estimated GFR (Cockcroft-Gault) 46.1 Glucose Level 113 mg/dL (70-99) Calcium Level 8.5 mg/dL (8.5-10.1) O2 Saturation 99 % (92-99) Arterial Blood pH 7.46 (7.35-7.45) Arterial Blood pCO2 at Patient Temp 46 mmHg (35-46) Arterial Blood pO2 at Patient Temp 142 mmHg (65-108) Arterial Blood HCO3 32 mmol/L (21-28) Arterial Blood Base Excess 7 mmol/L (-3-3) FiO2 40 Laboratory Tests Test 01/06/21 13:31 01/06/21 17:13 01/06/21 23:20 01/07/21 05:41 Glucose (Fingerstick) 121 mg/dL (70-99) 124 mg/dL (70-99) 132 mg/dL (70-99) 115 mg/dL (70-99) Test 01/07/21 05:50 01/07/21 07:40 White Blood Count 9.2 x10^3/uL (4.0-11.0) Red Blood Count 4.14 x10^6/uL (3.50-5.40) Hemoglobin 10.1 g/dL (12.0-15.5) Hematocrit 32.3 % (36.0-47.0) Mean Corpuscular Volume 78 fL (79-100) Mean Corpuscular Hemoglobin 24 pg (25-35) Mean Corpuscular Hemoglobin Concent 31 g/dL (31-37) Red Cell Distribution Width 16.3 % (11.5-14.5) Platelet Count 198 x10^3/uL (140-400) Neutrophils (%) (Auto) 76 % (31-73) Lymphocytes (%) (Auto) 12 % (24-48) Monocytes (%) (Auto) 10 % (0-9) Eosinophils (%) (Auto) 2 % (0-3) Basophils (%) (Auto) 0 % (0-3) Neutrophils # (Auto) 6.9 x10^3/uL (1.8-7.7) Lymphocytes # (Auto) 1.1 x10^3/uL (1.0-4.8) Monocytes # (Auto) 0.9 x10^3/uL (0.0-1.1) Eosinophils # (Auto) 0.2 x10^3/uL (0.0-0.7) Basophils # (Auto) 0.0 x10^3/uL (0.0-0.2) Sodium Level 148 mmol/L (136-145) Potassium Level 3.3 mmol/L (3.5-5.1) Chloride Level 111 mmol/L (98-107) Carbon Dioxide Level 29 mmol/L (21-32) Anion Gap 8 (6-14) Blood Urea Nitrogen 14 mg/dL (7-20) Creatinine 1.4 mg/dL (0.6-1.0) Estimated GFR (Cockcroft-Gault) 46.1 Glucose Level 113 mg/dL (70-99) Calcium Level 8.5 mg/dL (8.5-10.1) O2 Saturation 99 % (92-99) Arterial Blood pH 7.46 (7.35-7.45) Arterial Blood pCO2 at Patient Temp 46 mmHg (35-46) Arterial Blood pO2 at Patient Temp 142 mmHg (65-108) Arterial Blood HCO3 32 mmol/L (21-28) Arterial Blood Base Excess 7 mmol/L (-3-3) FiO2 40 Microbiology 01/06/21 Blood Culture - Preliminary, Resulted NO GROWTH AFTER 1 DAY 01/05/21 Gram Stain Evaluation - Final, Resulted 01/05/21 Respiratory Culture - Preliminary, Resulted 01/04/21 Urine Culture - Final, Complete Medications Current Medications Amiodarone HCl 450 mg/Dextrose 259 ml @ 33 mls/hr 1X ONCE IV Last administered on 01/04/21at 11:40; Start 01/04/21 at 11:15; Stop 01/04/21 at 19:05; Status DC Midazolam HCl 100 ml @ 1 mls/hr 1X ONCE IV Last administered on 01/04/21at 11:39; Start 01/04/21 at 11:30; Stop 01/05/21 at 09:51; Status DC Sodium Chloride 1,000 ml @ 1,000 mls/hr 1X ONCE IV Last administered on 01/04/21at 12:13; Start 01/04/21 at 11:45; Stop 01/04/21 at 12:44; Status DC Sodium Bicarbonate (Sodium Bicarb Adult 8.4% Syr) 50 meq 1X ONCE IV Last adm inistered on 01/04/21at 12:55; Start 01/04/21 at 12:00; Stop 01/04/21 at 12:01; Status DC Dextrose (Dextrose 50%-Water Syringe) 25 gm 1X ONCE IV Last administered on 01/04/21at 12:53; Start 01/04/21 at 12:00; Stop 01/04/21 at 12:01; Status DC Insulin Human Regular (HumuLIN R VIAL) 10 unit 1X ONCE IV Last administered on 01/04/21at 12:52; Start 01/04/21 at 12:00; Stop 01/04/21 at 12:01; Status DC Piperacillin Sod/ Tazobactam Sod 3.375 gm/Sodium Chloride 50 ml @ 100 mls/hr 1X ONCE IV Last administered on 01/04/21at 12:12; Start 01/04/21 at 12:00; Stop 01/04/21 at 12:29; Status DC Succinylcholine Chloride (Anectine) 100 mg 1X ONCE IV Last administered on 01/04/21at 11:03; Start 01/04/21 at 12:45; Stop 01/04/21 at 12:46; Status DC Etomidate (Amidate) 20 mg 1X ONCE IV Last administered on 01/04/21at 11:02; Start 01/04/21 at 12:45; Stop 01/04/21 at 12:46; Status DC Rocuronium [place] (Zemuron) 100 mg 1X ONCE IV ; Start 01/04/21 at 12:45; Stop 01/04/21 at 12:46; Status Cancel Midazolam HCl (Versed) 5 mg 1X ONCE IV Last administered on 01/04/21at 11:30; Start 01/04/21 at 12:45; Stop 01/04/21 at 12:46; Status DC Rocuronium [place] (Zemuron) 100 mg 1X ONCE IV Last administered on 01/04/21at 11:33; Start 01/04/21 at 12:45; Stop 01/04/21 at 12:46; Status DC Ondansetron HCl (Zofran) 4 mg PRN Q8HRS PRN IV NAUSEA/VOMITING; Start 01/04/21 at 13:00; Stop 01/05/21 at 09:48; Status DC Sodium Chloride 1,000 ml @ 100 mls/hr Q10H IV Last administered on 01/05/21at 09:41; Start 01/04/21 at 13:00; Stop 01/05/21 at 12:59; Status DC Ondansetron HCl (Zofran) 4 mg PRN Q6HRS PRN IVP NAUSEA/VOMITING; Start 01/04/21 at 14:00 Famotidine (Pepcid Vial) 20 mg QHS IVP Last administered on 01/06/21at 20:37; Start 01/04/21 at 21:00 Heparin Sodium (Porcine) (Heparin Sodium) 5,000 unit Q8HRS SQ Last administered on 01/07/21at 05:45; Start 01/04/21 at 14:00 Sodium Chloride (Normal Saline Flush) 3 ml QSHIFT PRN IV AFTER MEDS AND BLOOD DRAWS; Start 01/04/21 at 14:00 Bisacodyl (Dulcolax Supp) 10 mg PRN DAILY PRN MO CONSTIPATION; Start 01/04/21 at 14:00 Piperacillin Sod/ Tazobactam Sod (Zosyn Per Pharmacy) 1 each PRN DAILY PRN MC SEE COMMENTS; Start 01/04/21 at 14:00; Stop 01/04/21 at 17:48; Status DC Piperacillin Sod/ Tazobactam Sod 2.25 gm/Sodium Chloride 50 ml @ 100 mls/hr Q6HRS IV ; Start 01/04/21 at 18:00; Stop 01/04/21 at 17:49; Status DC Dextrose (Dextrose 50%-Water Syringe) 25 gm 1X ONCE IV Last administered on 01/04/21at 16:21; Start 01/04/21 at 16:15; Stop 01/04/21 at 16:16; Status DC Meropenem 500 mg/ Sodium Chloride 50 ml @ 100 mls/hr Q8HRS IV ; Start 01/04/21 at 18:00; Status Cancel Piperacillin Sod/ Tazobactam Sod 2.25 gm/Sodium Chloride 50 ml @ 100 mls/hr Q8HRS IV Last administered on 01/07/21at 05:45; Start 01/04/21 at 22:00 Linezolid/Dextrose 300 ml @ 300 mls/hr Q12HR IV Last administered on 01/06/21at 20:37; Start 01/04/21 at 21:00 Valproic Acid 500 mg/Dextrose 55 ml @ 55 mls/hr Q12HR IV Last administered on 01/05/21at 09:40; Start 01/05/21 at 09:00; Stop 01/05/21 at 17:28; Status DC Valproic Acid 1000 mg/Dextrose 60 ml @ 60 mls/hr 1X ONCE IV Last administered on 01/04/21at 19:30; Start 01/04/21 at 19:30; Stop 01/04/21 at 20:29; Status DC Lorazepam (Ativan Inj) 2 mg PRN Q2HRS PRN IVP ANXIETY / AGITATION Last administered on 01/05/21at 23:30; Start 01/04/21 at 19:30 Hydralazine HCl (Apresoline Inj) 10 mg PRN Q6HRS PRN IVP ELEVATED BP, SEE COMMENTS Last administered on 01/06/21at 10:40; Start 01/04/21 at 19:45 Amiodarone HCl 450 mg/Dextrose 259 ml @ 33 mls/hr CONT PRN IV SEE I/O RECORD Last administered on 01/05/21at 11:50; Start 01/04/21 at 20:15; Stop 01/05/21 at 11:50; Status DC Midazolam HCl 100 ml @ 1 mls/hr CONT PRN IV SEE I/O RECORD Last administered on 01/05/21at 02:00; Start 01/05/21 at 02:00 Daptomycin 600 mg/ Sodium Chloride 50 ml @ 100 mls/hr Q48H IV Last administered on 01/05/21at 16:46; Start 01/05/21 at 16:00 Scopolamine (Transderm-Scop) 1 patch Q3DAYS TD Last administered on 01/05/21at 16:23; Start 01/05/21 at 17:00 Valproic Acid 750 mg/Dextrose 57.5 ml @ 57.5 mls/hr Q12HR IV Last administered on 01/07/21at 08:44; Start 01/05/21 at 21:00 Insulin Human Lispro (HumaLOG) 0-5 UNITS TIDWMEALS SQ Last administered on 01/05/21at 18:27; Start 01/05/21 at 18:30; Stop 01/06/21 at 08:42; Status DC Dextrose (Dextrose 50%-Water Syringe) 12.5 gm PRN Q15MIN PRN IV SEE COMMENTS; Start 01/05/21 at 18:15 Amiodarone HCl 450 mg/Dextrose 259 ml @ 0 mls/hr 1X ONCE IV Last administered on 01/06/21at 02:00; Start 01/06/21 at 02:00; Stop 01/06/21 at 02:01; Status DC Insulin Human Lispro (HumaLOG) 0-5 UNITS Q6HRS SQ ; Start 01/06/21 at 12:00 Amiodarone HCl 450 mg/Dextrose 259 ml @ 0 mls/hr 1X ONCE IV Last administered on 01/06/21at 17:05; Start 01/06/21 at 17:00; Stop 01/06/21 at 17:01; Status DC Active Scripts Active Pantoprazole Sodium (Pantoprazole Sodium) 40 Mg Tablet.dr 40 Mg PO BIDAC 30 Days Clopidogrel (Clopidogrel Bisulfate) 75 Mg Tablet 75 Mg PO DAILYWBKFT 75 Days Reported Voltaren (Diclofenac Sodium) 100 Gm Gel..gram. 1 Gm TP QID 30 Days apply to affected area(s) Oxycodone Hcl 5 Mg Capsule 5 Mg PO PRN Q6HRS PRN Nystatin 15 Gm Powder 1 [place] TP BID 7 Days apply to affected area(s) Ondansetron Odt (Ondansetron) 4 Mg Tab.rapdis 1 Tab PO PRN Q8HRS PRN Reglan (Metoclopramide Hcl) 10 Mg Tablet 1 Tab PO QID 30 Days before food and bedtime Losartan Potassium 100 Mg Tablet 100 Mg PO DAILY Aspirin 325 Mg Tablet 1 Tab PO DAILY Metformin Hcl 500 Mg Tablet 500 Mg PO BIDWMEALS Bumetanide 1 Mg Tablet 1 Mg PO BID Insulin Aspart 100 Unit/1 Ml Vial 60 Unit SQ TIDAC novolg flex pen Isosorbide Mononitrate Er (Isosorbide Mononitrate) 120 Mg Tab.er.24h 120 Mg PO DAILY NITROGLYCERIN SubLingual (Nitroglycerin) 0.4 Mg Tab.subl 0.4 Mg SL PRN Q5MIN PRN Albuterol Sulfate Neb Soln (Albuterol Sulfate) 2.5 Mg/3 Ml Vial.neb 2.5 Mg NEB Q4-6HRS PRN Levemir Flextouch (Insulin Detemir) 100 Unit/1 Ml Insuln.pen 60 Unit SQ HS Hydralazine Hcl 25 Mg Tablet 25 Mg PO BID Fluticasone Propionate Nasal [place] (Fluticasone Propionate) 16 Gm [place].susp 2 [place] NS DAILY Zolpidem Tartrate 5 Mg Tablet 5 Mg PO PRN QHS PRN Amlodipine Besylate 10 Mg Tablet 10 Mg PO DAILY Gabapentin 600 Mg Tablet 600 Mg PO BID Potassium Chloride (Potassium Chloride) 20 Meq Tablet.er 20 Meq PO BID Proair Respiclick (Albuterol Sulfate) 90 Mcg Aer.pow.ba 2 Puff IH PRN Q4-6HRS PRN Cyclobenzaprine Hcl 10 Mg Tablet 1 Tab PO BID PRN Requip (Ropinirole Hcl) 1 Mg Tablet 1 Tab PO QHS Crestor (Rosuvastatin Calcium) 20 Mg Tablet 20 Mg PO HS LAST DOSE: 10/01/15 BEDTIME NEXT DOSE: 10/02/15 BEDTIME Oxybutynin Chloride 5 Mg Tablet 1 Tab PO DAILY LAST DOSE: 10/02/15 AM NEXT DOSE: 10/03/15 AM Vitals/I & O Vital Sign - Last 24 Hours 01/06/21 01/06/21 01/06/21 01/06/21 09:35 10:31 10:40 11:06 Temp 99.2 99.2 Pulse 90 90 92 Resp 17 19 B/P (MAP) 173/78 (109) 173/78 151/66 (94) Pulse Ox 97 99 98 O2 Delivery Ventilator Ventilator Ventilator 01/06/21 01/06/21 01/06/21 01/06/21 11:48 11:56 12:26 13:04 Pulse 92 90 Resp 17 16 B/P (MAP) 128/61 (83) 150/66 (94) Pulse Ox 97 98 97 O2 Delivery Ventilator Mechanical Ventilator Ventilator Ventilator 01/06/21 01/06/21 01/06/21 01/06/21 13:25 14:07 15:21 15:37 Pulse 92 90 Resp 16 16 B/P (MAP) 159/70 (99) 154/66 (95) Pulse Ox 99 99 99 99 O2 Delivery Ventilator Ventilator Ventilator Ventilator 01/06/21 01/06/21 01/06/21 01/06/21 15:43 16:15 17:14 18:36 Temp 98.4 98.4 Pulse 89 77 84 Resp 16 16 16 B/P (MAP) 163/73 (103) 111/59 (76) 141/70 (93) Pulse Ox 99 100 100 O2 Delivery Mechanical Ventilator Ventilator Ventilator Ventilator 01/06/21 01/06/21 01/06/21 01/06/21 19:00 19:50 20:00 20:27 Temp 98.1 98.1 Pulse 78 81 Resp 14 16 B/P (MAP) 120/63 (82) 132/63 (86) Pulse Ox 100 100 99 O2 Delivery Ventilator Mechanical Ventilator Ventilator Ventilator 01/06/21 01/06/21 01/06/21 01/06/21 21:00 22:00 22:15 23:00 Pulse 81 70 86 Resp 16 16 17 B/P (MAP) 121/56 (77) 97/44 (61) 167/73 (104) Pulse Ox 99 100 99 99 O2 Delivery Ventilator Ventilator Ventilator Ventilator 01/07/21 01/07/21 01/07/21 01/07/21 00:00 00:00 00:20 01:00 Temp 98.9 98.9 Pulse 79 76 Resp 17 17 B/P (MAP) 156/71 (99) 166/58 (94) Pulse Ox 99 99 99 O2 Delivery Ventilator Mechanical Ventilator Ventilator Ventilator 01/07/21 01/07/21 01/07/21 01/07/21 02:00 02:20 03:00 04:00 Pulse 74 74 Resp 17 17 B/P (MAP) 155/68 (97) 167/57 (93) Pulse Ox 99 99 99 O2 Delivery Ventilator Ventilator Ventilator Mechanical Ventilator 6/21/21 6/21/21 6/21/21 6/21/21 04:00 05:00 05:26 06:00 Temp 98.4 98.4 Pulse 75 75 71 Resp 17 17 17 B/P (MAP) 169/64 (99) 172/64 (100) 131/53 (79) Pulse Ox 100 100 99 100 O2 Delivery Ventilator Ventilator Ventilator Ventilator 01/07/21 01/07/21 01/07/21 01/07/21 07:19 07:40 08:18 08:35 Temp 98.8 98.8 Pulse 74 72 Resp 17 16 B/P (MAP) 153/66 (95) 164/65 (98) Pulse Ox 100 100 100 O2 Delivery Ventilator Ventilator Ventilator Mechanical Ventilator Intake and Output 01/06/21 01/06/21 01/07/21 15:00 23:00 07:00 Intake Total 707.5 ml 1369 ml 1012 ml Output Total 315 ml 330 ml 230 ml Balance 392.5 ml 1039 ml [address] STROKE HEAD W/O, 01/04 No intracranial hemorrhage. No mass effect. No hydrocephalus. Moderate foci of decreased attenuation within the hemispheric white matter, most often due to chronic microvascular ischemia, unchanged. Intracranial atheromatous calcifications. Bilateral proptosis due to abundant retro-orbital fat, unchanged. Secretions within the right maxillary sinus with mucosal thickening. Mild mucosal thickening within the ethmoid and sphenoid sinuses. Secretions within the nasal passages and posterior nasopharynx likely related to oral intubation. No acute calvarial fracture. Impression: 1. No acute intracranial abnormality. Justicifation of Admission Dx: Justifications for Admission: Justification of Admission Dx: Yes SWATHI BOOTH MD Jan 07, 2021 09:15
[2021-01-07] MEDS: hydrALAZINE 20 MG/ML VIAL. IVP PRN (10:04)
--- NOTE | 2021-01-07 10:50 | PDOC ---
PULMONARY PROGRESS NOTES DATE: 01/07/21 TIME: 10:50 Subjective PT. remains on vent 40% and PEEP of 5 off sedation for 48hours, unresponsive, has + cough reflex no overnight concerns from nursing Vitals Vital Signs Date Time Temp Pulse Resp B/P (MAP) Pulse Ox O2 Delivery O2 Flow Rate FiO2 01/07/21 10:04 76 194/80 01/07/21 10:00 17 100 Ventilator 01/07/21 08:18 98.8 98.8 Comments unable to obtain 2/2 clinical state HEENT: Other (nc at perrl nose clear orally intubated neck no lad no thyromegaly ) Lungs: Crackles Cardiovascular: S1, S2 Abdomen: Soft, Non-tender, Other (no mass obese) Extremities: Other (edema) Skin: Warm Labs Laboratory Tests Test 01/05/21 11:31 01/05/21 18:13 01/06/21 00:11 01/06/21 04:50 Glucose (Fingerstick) 148 mg/dL (70-99) 152 mg/dL (70-99) 114 mg/dL (70-99) Sodium Level 148 mmol/L (136-145) Potassium Level 3.4 mmol/L (3.5-5.1) Chloride Level 111 mmol/L (98-107) Carbon Dioxide Level 28 mmol/L (21-32) Anion Gap 9 (6-14) Blood Urea Nitrogen 15 mg/dL (7-20) Creatinine 1.6 mg/dL (0.6-1.0) Estimated GFR (Cockcroft-Gault) 39.5 Glucose Level 121 mg/dL (70-99) Calcium Level 8.7 mg/dL (8.5-10.1) Phosphorus Level 2.8 mg/dL (2.6-4.7) Albumin 2.0 g/dL (3.4-5.0) Test 01/06/21 07:45 01/06/21 08:20 01/06/21 13:31 01/06/21 17:13 O2 Saturation 99 % (92-99) Arterial Blood pH 7.50 (7.35-7.45) Arterial Blood pCO2 at Patient Temp 39 mmHg (35-46) Arterial Blood pO2 at Patient Temp 145 mmHg (65-108) Arterial Blood HCO3 30 mmol/L (21-28) Arterial Blood Base Excess 6 mmol/L (-3-3) FiO2 40 White Blood Count 11.6 x10^3/uL (4.0-11.0) Red Blood Count 4.28 x10^6/uL (3.50-5.40) Hemoglobin 10.4 g/dL (12.0-15.5) Hematocrit 33.0 % (36.0-47.0) Mean Corpuscular Volume 77 fL (79-100) Mean Corpuscular Hemoglobin 24 pg (25-35) Mean Corpuscular Hemoglobin Concent 32 g/dL (31-37) Red Cell Distribution Width 16.3 % (11.5-14.5) Platelet Count 209 x10^3/uL (140-400) Neutrophils (%) (Auto) 79 % (31-73) Lymphocytes (%) (Auto) 11 % (24-48) Monocytes (%) (Auto) 9 % (0-9) Eosinophils (%) (Auto) 1 % (0-3) Basophils (%) (Auto) 1 % (0-3) Neutrophils # (Auto) 9.1 x10^3/uL (1.8-7.7) Lymphocytes # (Auto) 1.3 x10^3/uL (1.0-4.8) Monocytes # (Auto) 1.0 x10^3/uL (0.0-1.1) Eosinophils # (Auto) 0.1 x10^3/uL (0.0-0.7) Basophils # (Auto) 0.1 x10^3/uL (0.0-0.2) Sodium Level 149 mmol/L (136-145) Potassium Level 3.4 mmol/L (3.5-5.1) Chloride Level 111 mmol/L (98-107) Carbon Dioxide Level 29 mmol/L (21-32) Anion Gap 9 (6-14) Blood Urea Nitrogen 15 mg/dL (7-20) Creatinine 1.6 mg/dL (0.6-1.0) Estimated GFR (Cockcroft-Gault) 39.5 Glucose Level 114 mg/dL (70-99) Calcium Level 8.7 mg/dL (8.5-10.1) Glucose (Fingerstick) 121 mg/dL (70-99) 124 mg/dL (70-99) Test 01/06/21 23:20 01/07/21 05:41 01/07/21 05:50 01/07/21 07:40 Glucose (Fingerstick) 132 mg/dL (70-99) 115 mg/dL (70-99) White Blood Count 9.2 x10^3/uL (4.0-11.0) Red Blood Count 4.14 x10^6/uL (3.50-5.40) Hemoglobin 10.1 g/dL (12.0-15.5) Hematocrit 32.3 % (36.0-47.0) Mean Corpuscular Volume 78 fL (79-100) Mean Corpuscular Hemoglobin 24 pg (25-35) Mean Corpuscular Hemoglobin Concent 31 g/dL (31-37) Red Cell Distribution Width 16.3 % (11.5-14.5) Platelet Count 198 x10^3/uL (140-400) Neutrophils (%) (Auto) 76 % (31-73) Lymphocytes (%) (Auto) 12 % (24-48) Monocytes (%) (Auto) 10 % (0-9) Eosinophils (%) (Auto) 2 % (0-3) Basophils (%) (Auto) 0 % (0-3) Neutrophils # (Auto) 6.9 x10^3/uL (1.8-7.7) Lymphocytes # (Auto) 1.1 x10^3/uL (1.0-4.8) Monocytes # (Auto) 0.9 x10^3/uL (0.0-1.1) Eosinophils # (Auto) 0.2 x10^3/uL (0.0-0.7) Basophils # (Auto) 0.0 x10^3/uL (0.0-0.2) Sodium Level 148 mmol/L (136-145) Potassium Level 3.3 mmol/L (3.5-5.1) Chloride Level 111 mmol/L (98-107) Carbon Dioxide Level 29 mmol/L (21-32) Anion Gap 8 (6-14) Blood Urea Nitrogen 14 mg/dL (7-20) Creatinine 1.4 mg/dL (0.6-1.0) Estimated GFR (Cockcroft-Gault) 46.1 Glucose Level 113 mg/dL (70-99) Calcium Level 8.5 mg/dL (8.5-10.1) O2 Saturation 99 % (92-99) Arterial Blood pH 7.46 (7.35-7.45) Arterial Blood pCO2 at Patient Temp 46 mmHg (35-46) Arterial Blood pO2 at Patient Temp 142 mmHg (65-108) Arterial Blood HCO3 32 mmol/L (21-28) Arterial Blood Base Excess 7 mmol/L (-3-3) FiO2 40 Laboratory Tests Test 01/06/21 13:31 01/06/21 17:13 01/06/21 23:20 01/07/21 05:41 Glucose (Fingerstick) 121 mg/dL (70-99) 124 mg/dL (70-99) 132 mg/dL (70-99) 115 mg/dL (70-99) Test 01/07/21 05:50 01/07/21 07:40 White Blood Count 9.2 x10^3/uL (4.0-11.0) Red Blood Count 4.14 x10^6/uL (3.50-5.40) Hemoglobin 10.1 g/dL (12.0-15.5) Hematocrit 32.3 % (36.0-47.0) Mean Corpuscular Volume 78 fL (79-100) Mean Corpuscular Hemoglobin 24 pg (25-35) Mean Corpuscular Hemoglobin Concent 31 g/dL (31-37) Red Cell Distribution Width 16.3 % (11.5-14.5) Platelet Count 198 x10^3/uL (140-400) Neutrophils (%) (Auto) 76 % (31-73) Lymphocytes (%) (Auto) 12 % (24-48) Monocytes (%) (Auto) 10 % (0-9) Eosinophils (%) (Auto) 2 % (0-3) Basophils (%) (Auto) 0 % (0-3) Neutrophils # (Auto) 6.9 x10^3/uL (1.8-7.7) Lymphocytes # (Auto) 1.1 x10^3/uL (1.0-4.8) Monocytes # (Auto) 0.9 x10^3/uL (0.0-1.1) Eosinophils # (Auto) 0.2 x10^3/uL (0.0-0.7) Basophils # (Auto) 0.0 x10^3/uL (0.0-0.2) Sodium Level 148 mmol/L (136-145) Potassium Level 3.3 mmol/L (3.5-5.1) Chloride Level 111 mmol/L (98-107) Carbon Dioxide Level 29 mmol/L (21-32) Anion Gap 8 (6-14) Blood Urea Nitrogen 14 mg/dL (7-20) Creatinine 1.4 mg/dL (0.6-1.0) Estimated GFR (Cockcroft-Gault) 46.1 Glucose Level 113 mg/dL (70-99) Calcium Level 8.5 mg/dL (8.5-10.1) O2 Saturation 99 % (92-99) Arterial Blood pH 7.46 (7.35-7.45) Arterial Blood pCO2 at Patient Temp 46 mmHg (35-46) Arterial Blood pO2 at Patient Temp 142 mmHg (65-108) Arterial Blood HCO3 32 mmol/L (21-28) Arterial Blood Base Excess 7 mmol/L (-3-3) FiO2 40 Medications Active Scripts Medications Dose Route/Sig Max Daily Dose Days Date Category Dose Instructions Voltaren (Diclofenac Sodium) 100 Gm Gel..gram. 1 Gm TP QID 30 12/10/20 Reported apply to affected area(s) Oxycodone Hcl 5 Mg Capsule 5 Mg PO PRN Q6HRS PRN 12/08/20 Reported Nystatin 15 Gm Powder 1 [place] TP BID 7 12/08/20 Reported apply to affected area(s) Ondansetron Odt (Ondansetron) 4 Mg Tab.rapdis 1 Tab PO PRN Q8HRS PRN 11/05/20 Reported Reglan (Metoclopramide Hcl) 10 Mg Tablet 1 Tab PO QID 30 11/05/20 Reported before food and bedtime Pantoprazole Sodium (Pantoprazole Sodium) 40 Mg Tablet.dr 40 Mg PO BIDAC 30 06/21/20 Rx Losartan Potassium 100 Mg Tablet 100 Mg PO DAILY 05/03/20 Reported Aspirin 325 Mg Tablet 1 Tab PO DAILY 05/03/20 Reported Metformin Hcl 500 Mg Tablet 500 Mg PO BIDWMEALS 05/03/20 Reported Bumetanide 1 Mg Tablet 1 Mg PO BID 04/02/20 Reported Insulin Aspart 100 Unit/1 Ml Vial 60 Unit SQ TIDAC 04/02/20 Reported novolg flex pen Isosorbide Mononitrate Er (Isosorbide Mononitrate) 120 Mg Tab.er.24h 120 Mg PO DAILY 04/02/20 Reported NITROGLYCERIN SubLingual (Nitroglycerin) 0.4 Mg Tab.subl 0.4 Mg SL PRN Q5MIN PRN 04/02/20 Reported Albuterol Sulfate Neb Soln (Albuterol Sulfate) 2.5 Mg/3 Ml Vial.neb 2.5 Mg NEB Q4-6HRS PRN 04/02/20 Reported Levemir Flextouch (Insulin Detemir) 100 Unit/1 Ml Insuln.pen 60 Unit SQ HS 04/02/20 Reported Hydralazine Hcl 25 Mg Tablet 25 Mg PO BID 04/02/20 Reported Fluticasone Propionate Nasal [place] (Fluticasone Propionate) 16 Gm [place].susp 2 [place] NS DAILY 06/18/19 Reported Zolpidem Tartrate 5 Mg Tablet 5 Mg PO PRN QHS PRN 06/18/19 Reported Amlodipine Besylate 10 Mg Tablet 10 Mg PO DAILY 06/18/19 Reported Gabapentin 600 Mg Tablet 600 Mg PO BID 06/18/19 Reported Potassium Chloride (Potassium Chloride) 20 Meq Tablet.er 20 Meq PO BID 06/18/19 Reported Clopidogrel (Clopidogrel Bisulfate) 75 Mg Tablet 75 Mg PO DAILYWBKFT 75 11/10/17 Rx Proair Respiclick (Albuterol Sulfate) 90 Mcg Aer.pow.ba 2 Puff IH PRN Q4-6HRS PRN 09/08/16 Reported Cyclobenzaprine Hcl 10 Mg Tablet 1 Tab PO BID PRN 09/08/16 Reported Requip (Ropinirole Hcl) 1 Mg Tablet 1 Tab PO QHS 09/08/16 Reported Crestor (Rosuvastatin Calcium) 20 Mg Tablet 20 Mg PO HS 10/02/15 Reported LAST DOSE: 10/01/15 BEDTIME NEXT DOSE: 10/02/15 BEDTIME Oxybutynin Chloride 5 Mg Tablet 1 Tab PO DAILY 10/02/15 Reported LAST DOSE: 10/02/15 AM NEXT DOSE: 10/03/15 AM Comments CXR 01/07 IMPRESSION: 1. Diffuse interstitial prominence may be seen with interstitial pulmonary edema or atypical infectious/inflammatory process. 2. Support lines and tubes as above. 3. Mild cardiomegaly. Impression . 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 Echo 12/2019 with LVEF 45%, improved on cath on 12/07 Coronary artery disease with recent -- cath 12/07 showed patent long stented proximal to distal LAD. No lesions needing intervention were noted. Echo with LVEF 55 to 60%. Type 2 diabetes. Chronic obstructive pulmonary disease. Morbid obesity. Hypertension. Obstructive sleep apnea. MIRIAM cr trending down Plan . 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 Follow Nephrology recs -- MIRIAM with improving renal function -- IVF Follow neurology recs-- anoxic brain injury/not brain --poor prognosis Nutritional Support DVT/GI PPX-- Sub Q heparin D/W RN and RT PLAN: 1. cont vent support setting reviewed, abg reviewed, personally decreased rr to 16 not alert enough to do sbt off sedation 2. cont antibiotics. 3. Monitor blood sugars. 4. Neurology consulted for questionable seizures. on anti sz meds 5. elevate hob 6. DVT and GI prophylaxis. 7. follow Cardiology rec, p.r.n. hydralazine for elevated blood pressure. 8. has le edema, le venous doppler no dvt discussed w rn rt RAF CADET MD Jan 07, 2021 10:50
--- NOTE | 2021-01-07 10:52 | PDOC ---
Renal-Progress Notes Subjective Notes Notes NO ACUTE CHANGES History of Present Illness Hx of present illness STABLE, REMAINS ON THE VENT Vitals Vitals Vital Signs Date Time Temp Pulse Resp B/P (MAP) Pulse Ox O2 Delivery O2 Flow Rate FiO2 01/07/21 10:04 76 194/80 01/07/21 10:00 17 100 Ventilator 01/07/21 08:18 98.8 98.8 Weight Weight [ ] I.O. Intake and Output Intake and Output 01/07/21 07:00 Intake Total 3088.5 ml Output Total 875 ml Balance 2213.5 ml Intake IV Total 1270.5 ml Tube Feeding 1518 ml Other 300 ml Output Urine Total 875 ml Labs Labs Laboratory Tests Test 01/06/21 13:31 01/06/21 17:13 01/06/21 23:20 01/07/21 05:41 Glucose (Fingerstick) 121 mg/dL (70-99) 124 mg/dL (70-99) 132 mg/dL (70-99) 115 mg/dL (70-99) Test 01/07/21 05:50 01/07/21 07:40 White Blood Count 9.2 x10^3/uL (4.0-11.0) Red Blood Count 4.14 x10^6/uL (3.50-5.40) Hemoglobin 10.1 g/dL (12.0-15.5) Hematocrit 32.3 % (36.0-47.0) Mean Corpuscular Volume 78 fL (79-100) Mean Corpuscular Hemoglobin 24 pg (25-35) Mean Corpuscular Hemoglobin Concent 31 g/dL (31-37) Red Cell Distribution Width 16.3 % (11.5-14.5) Platelet Count 198 x10^3/uL (140-400) Neutrophils (%) (Auto) 76 % (31-73) Lymphocytes (%) (Auto) 12 % (24-48) Monocytes (%) (Auto) 10 % (0-9) Eosinophils (%) (Auto) 2 % (0-3) Basophils (%) (Auto) 0 % (0-3) Neutrophils # (Auto) 6.9 x10^3/uL (1.8-7.7) Lymphocytes # (Auto) 1.1 x10^3/uL (1.0-4.8) Monocytes # (Auto) 0.9 x10^3/uL (0.0-1.1) Eosinophils # (Auto) 0.2 x10^3/uL (0.0-0.7) Basophils # (Auto) 0.0 x10^3/uL (0.0-0.2) Sodium Level 148 mmol/L (136-145) Potassium Level 3.3 mmol/L (3.5-5.1) Chloride Level 111 mmol/L (98-107) Carbon Dioxide Level 29 mmol/L (21-32) Anion Gap 8 (6-14) Blood Urea Nitrogen 14 mg/dL (7-20) Creatinine 1.4 mg/dL (0.6-1.0) Estimated GFR (Cockcroft-Gault) 46.1 Glucose Level 113 mg/dL (70-99) Calcium Level 8.5 mg/dL (8.5-10.1) O2 Saturation 99 % (92-99) Arterial Blood pH 7.46 (7.35-7.45) Arterial Blood pCO2 at Patient Temp 46 mmHg (35-46) Arterial Blood pO2 at Patient Temp 142 mmHg (65-108) Arterial Blood HCO3 32 mmol/L (21-28) Arterial Blood Base Excess 7 mmol/L (-3-3) FiO2 40 Micro Micro Microbiology 01/06/21 Blood Culture - Preliminary, Resulted NO GROWTH AFTER 1 DAY 01/05/21 Gram Stain Evaluation - Final, Complete 01/05/21 Respiratory Culture - Final, Complete 01/05/21 Antimicrobic Susceptibility - Final, Complete 01/04/21 Urine Culture - Final, Complete Review of Systems Constitutional: yes: unresponsive Eyes: Yes: no symptom reported, itching Physical Exam General Appearance: no apparent distress, febrile Respiratory: ventilator (Mode:A/C), decreased breath sounds Heart: S1S2 Abdomen: soft Genitourinary: bladder flat Extremities: pulses present, no edema Neurology: alert Assessment Assessment IMP [id number]-LT OF 2.4 TO 1.6 HYPERNATREMIA ACUTE RESP FAILURE PROB PNEUMONIA DM II DIONNE OBESITY BACTEREMIA PLAN ANTIBIOTICS HYPOTONIC SALINE HYDRATION ANTIBIOTICS INCREASE WATER FLUSHES CONT WITH TF VENT SUPPORT REMAINS CRITICALLY ILL WILL FOLLOW EFE PRICE MD Jan 07, 2021 10:52
[2021-01-07] MEDS ORDERED: MINERAL OIL/PETROLATUM,WHITE OPHTH OINT 3.5GM TUBE. OU PRN (13:00)
--- NOTE | 2021-01-07 13:14 | PDOC ---
JOSE EDUARDO GRECO CORONER TECHNICIAN 01/07/21 1314: CARDIO Progress Notes Date and Time Date of Service 01/07/21 Time of Evaluation 1300 Subjective Subjective: Other (intubated ) Vitals Vitals Vital Signs Date Time Temp Pulse Resp B/P (MAP) Pulse Ox O2 Delivery O2 Flow Rate FiO2 01/07/21 12:26 98.9 86 16 148/78 (101) 99 Ventilator 98.9 Weight Weight [ ] Input and Output Intake and Output Intake and Output 01/07/21 07:00 Intake Total 3088.5 ml Output Total 875 ml Balance 2213.5 ml Intake IV Total 1270.5 ml Tube Feeding 1518 ml Other 300 ml Output Urine Total 875 ml Laboratory Labs Laboratory Tests Test 01/06/21 13:31 01/06/21 17:13 01/06/21 23:20 01/07/21 05:41 Glucose (Fingerstick) 121 mg/dL (70-99) 124 mg/dL (70-99) 132 mg/dL (70-99) 115 mg/dL (70-99) Test 01/07/21 05:50 01/07/21 07:40 01/07/21 12:44 White Blood Count 9.2 x10^3/uL (4.0-11.0) Red Blood Count 4.14 x10^6/uL (3.50-5.40) Hemoglobin 10.1 g/dL (12.0-15.5) Hematocrit 32.3 % (36.0-47.0) Mean Corpuscular Volume 78 fL (79-100) Mean Corpuscular Hemoglobin 24 pg (25-35) Mean Corpuscular Hemoglobin Concent 31 g/dL (31-37) Red Cell Distribution Width 16.3 % (11.5-14.5) Platelet Count 198 x10^3/uL (140-400) Neutrophils (%) (Auto) 76 % (31-73) Lymphocytes (%) (Auto) 12 % (24-48) Monocytes (%) (Auto) 10 % (0-9) Eosinophils (%) (Auto) 2 % (0-3) Basophils (%) (Auto) 0 % (0-3) Neutrophils # (Auto) 6.9 x10^3/uL (1.8-7.7) Lymphocytes # (Auto) 1.1 x10^3/uL (1.0-4.8) Monocytes # (Auto) 0.9 x10^3/uL (0.0-1.1) Eosinophils # (Auto) 0.2 x10^3/uL (0.0-0.7) Basophils # (Auto) 0.0 x10^3/uL (0.0-0.2) Sodium Level 148 mmol/L (136-145) Potassium Level 3.3 mmol/L (3.5-5.1) Chloride Level 111 mmol/L (98-107) Carbon Dioxide Level 29 mmol/L (21-32) Anion Gap 8 (6-14) Blood Urea Nitrogen 14 mg/dL (7-20) Creatinine 1.4 mg/dL (0.6-1.0) Estimated GFR (Cockcroft-Gault) 46.1 Glucose Level 113 mg/dL (70-99) Calcium Level 8.5 mg/dL (8.5-10.1) O2 Saturation 99 % (92-99) Arterial Blood pH 7.46 (7.35-7.45) Arterial Blood pCO2 at Patient Temp 46 mmHg (35-46) Arterial Blood pO2 at Patient Temp 142 mmHg (65-108) Arterial Blood HCO3 32 mmol/L (21-28) Arterial Blood Base Excess 7 mmol/L (-3-3) FiO2 40 Glucose (Fingerstick) 119 mg/dL (70-99) Microbiology Micro Microbiology 01/06/21 Blood Culture - Preliminary, Resulted NO GROWTH AFTER 1 DAY 01/05/21 Gram Stain Evaluation - Final, Complete 01/05/21 Respiratory Culture - Final, Complete 01/05/21 Antimicrobic Susceptibility - Final, Complete 01/04/21 Urine Culture - Final, Complete Review of Systems Constitutional: yes: unresponsive Eyes: Yes: no symptom reported, itching Physical Exam HEENT: Neck Supple W Full Motion LUNGS: Other (mechanical vent ) Heart: RRR (SR) Abdomen: Other (soft ) Extremities: No Edema Neurology: other (sedated ) Assessment Assessment 1. Acute hypoxic hypercapnic respiratory failure with probable aspiration PNA. s/p intubation 2. 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 Echo 12/2019 with LVEF 45%. appear compensated 3. VFIB during difficult intubation; possibly precipitated by hypoxia. On Amiodarone gtt. No further arrhythmias noted on tele. 4. Mild troponin elevation; 0.6. most probably type II, demand ischemia secondary to CPR/defibrillation. EKG shows SR with RBBB 5. CAD; cath 12/07 showed patent long stented proximal to distal LAD. No lesions needing intervention were noted. Echo with LVEF 55 to 60%. 6. Hypertension; slightly labile 7. Hyperlipidemi; statin therapy 8. Diabetes, II; as per IM 9. MIRIAM; Cr better 10. COPD, DIONNE: home CPAP 11. Hypokalemia Recommendations Will discontinue Amiodarone and monitor rhythm. Check Mg and replace as warranted Continue current secondary prevention measures including ASA/Plavix, statin, and BB therapy Resume home antiHTN therapy. Hydralazine IV PRN Ongoing lung optimizations, treatment of PNA Supportive care Justicifation of Admission Dx: Justifications for Admission: Justification of Admission Dx: Yes ERICA ADEN MD 01/08/21 0931: CARDIO Progress Notes Assessment Assessment Patient seen and examined 01/07/2021. Agree with HAND CLOTH CUTTER's assessment and plan. Telemetry did not show any significant arrhythmias. Agree with stopping amiodarone infusion. CAD status clinically stable. Continue vent management per pulmonary team JOSE EDUARDO GRECO APRN Jan 07, 2021 13:14 ERIAC ADEN MD Jan 08, 2021 09:31
[2021-01-07] MEDS ORDERED: AMIODARONE HCL 200 MG TABLET. PO SCH (14:00)
[2021-01-07] MEDS: DAPTOmycin (GENERIC) IVPB 600 MG in IV NORMAL SALINE 50ML 50 ML IV SCH (15:40)
--- NOTE | 2021-01-07 16:13 | RAD ---
EXAM: AP View of the chest DATE: 01/07/2021 11:44 AM INDICATION: Reason: PNEUMONIA / Spl. Instructions: / History: COMPARISON: No Prior FINDINGS: Left IJ vascular catheter projects or the proximal SVC. ET tube tip terminates approximately 2 cm abo ve the sukh. Enteric tube extends beyond the diaphragm tip terminates in the body the stomach. Mild cardiomegaly. Aorta tortuous. Diffuse interstitial prominence. No lobar consolidation. No pleural effusion or pneumothorax. IMPRESSION: 1. Diffuse interstitial prominence may be seen with interstitial pulmonary edema or atypical infecti ous/inflammatory process. 2. Support lines and tubes as above. 3. Mild cardiomegaly. Electronically signed by: Pravin Pineda MD (01/07/2021 4:10 PM) BAR
--- NOTE | 2021-01-07 16:33 | NUR ---
SS following for discharge planning. SS reviewed pt chart and discussed with pt RN. Pt is from home and is currently on the vent at 40%. Pt has home CPAP machine. Pt on IV Zyvox, IV Daptomycin, and IV Zosyn. No sedation. Pt not responsive at this time. SS will continue to follow for discharge planning.
[2021-01-07] MEDS: ATORVASTATIN CALCIUM 40 MG TABLET. PO SCH (21:18)
[2021-01-07] MEDS: FAMOTIDINE 20 MG/2 ML VIAL IVP SCH (21:19)
[2021-01-07] MEDS: hydrALAZINE 25 MG TABLET PO SCH (21:19)
[2021-01-08] VITALS (25 sets, daily range): BP systolic 103–174; BP diastolic 46–76
[2021-01-08] MEDS: INSULIN LISPRO 300 UNITS/3 ML VIAL. SQ SCH ×5 (06:00→23:45)
[2021-01-08] MEDS: PIPERACILLIN/TAZOBACTAM 2.25 GM in IV NORMAL SALINE 50ML 50 ML IV SCH (06:01)
[2021-01-08] MEDS: HEPARIN for SUB-Q USE 5,000 UNIT/ML VIAL. SQ SCH ×3 (06:02→22:11)
[2021-01-08 07:44] LABS: BASE EXCESS ABG 6 mmol/L (-3-3); HCO3 ABG 31 mmol/L (21-28); PCO2 ABG 46 mmHg (35-46); PO2 ABG 142 mmHg (65-108); SAT O2 ABG 99 % (92-99)
[2021-01-08 07:49] LABS: FIO2 ABG 40%+5
[2021-01-08] MEDS: SCOPOLAMINE 1.5MG PATCH. TD SCH (08:08)
[2021-01-08] MEDS: VALPROIC ACID (AS SODIUM SALT) 750 MG in IV DEXTROSE 5% 50 ML IV SCH ×2 (08:10→20:34)
[2021-01-08] MEDS: LOSARTAN POTASSIUM 50 MG TABLET. PO SCH (08:12)
[2021-01-08] MEDS: CLOPIDOGREL BISULFATE 75 MG TABLET PO SCH (08:13)
[2021-01-08] MEDS: hydrALAZINE 25 MG TABLET PO SCH ×2 (08:13→20:33)
[2021-01-08] MEDS: METOPROLOL TART IMMED RELEASE 25 MG TABLET. PO SCH ×2 (08:15→20:34)
--- NOTE | 2021-01-08 08:27 | PDOC ---
PULMONARY PROGRESS NOTES DATE: 01/08/21 TIME: 08:27 Subjective Discussed with RN, patient underwent EEG today Continues to assist ventilator. PT. remains on vent 40% and PEEP of 5 off sedation, unresponsive, has + cough reflex no overnight concerns from nursing Vitals Vital Signs Date Time Temp Pulse Resp B/P (MAP) Pulse Ox O2 Delivery O2 Flow Rate FiO2 01/08/21 08:15 83 172/72 01/08/21 08:05 18 99 Ventilator 01/08/21 07:25 99.0 99.0 Comments unable to obtain 2/2 clinical state HEENT: Other (nc at perrl nose clear orally intubated neck no lad no thyromegaly ) Lungs: Crackles Cardiovascular: S1, S2 Abdomen: Soft, Non-tender, Other (no mass obese) Extremities: Other (edema) Skin: Warm Labs Laboratory Tests Test 01/06/21 13:31 01/06/21 17:13 01/06/21 23:20 01/07/21 05:41 Glucose (Fingerstick) 121 mg/dL (70-99) 124 mg/dL (70-99) 132 mg/dL (70-99) 115 mg/dL (70-99) Test 01/07/21 05:50 01/07/21 07:40 01/07/21 12:44 01/07/21 17:17 White Blood Count 9.2 x10^3/uL (4.0-11.0) Red Blood Count 4.14 x10^6/uL (3.50-5.40) Hemoglobin 10.1 g/dL (12.0-15.5) Hematocrit 32.3 % (36.0-47.0) Mean Corpuscular Volume 78 fL (79-100) Mean Corpuscular Hemoglobin 24 pg (25-35) Mean Corpuscular Hemoglobin Concent 31 g/dL (31-37) Red Cell Distribution Width 16.3 % (11.5-14.5) Platelet Count 198 x10^3/uL (140-400) Neutrophils (%) (Auto) 76 % (31-73) Lymphocytes (%) (Auto) 12 % (24-48) Monocytes (%) (Auto) 10 % (0-9) Eosinophils (%) (Auto) 2 % (0-3) Basophils (%) (Auto) 0 % (0-3) Neutrophils # (Auto) 6.9 x10^3/uL (1.8-7.7) Lymphocytes # (Auto) 1.1 x10^3/uL (1.0-4.8) Monocytes # (Auto) 0.9 x10^3/uL (0.0-1.1) Eosinophils # (Auto) 0.2 x10^3/uL (0.0-0.7) Basophils # (Auto) 0.0 x10^3/uL (0.0-0.2) Sodium Level 148 mmol/L (136-145) Potassium Level 3.3 mmol/L (3.5-5.1) Chloride Level 111 mmol/L (98-107) Carbon Dioxide Level 29 mmol/L (21-32) Anion Gap 8 (6-14) Blood Urea Nitrogen 14 mg/dL (7-20) Creatinine 1.4 mg/dL (0.6-1.0) Estimated GFR (Cockcroft-Gault) 46.1 Glucose Level 113 mg/dL (70-99) Calcium Level 8.5 mg/dL (8.5-10.1) Magnesium Level 2.1 mg/dL (1.8-2.4) Troponin I Quantitative 0.606 ng/mL (0.000-0.055) O2 Saturation 99 % (92-99) Arterial Blood pH 7.46 (7.35-7.45) Arterial Blood pCO2 at Patient Temp 46 mmHg (35-46) Arterial Blood pO2 at Patient Temp 142 mmHg (65-108) Arterial Blood HCO3 32 mmol/L (21-28) Arterial Blood Base Excess 7 mmol/L (-3-3) FiO2 40 Glucose (Fingerstick) 119 mg/dL (70-99) 113 mg/dL (70-99) Test 01/07/21 23:40 01/08/21 07:40 Glucose (Fingerstick) 122 mg/dL (70-99) O2 Saturation 99 % (92-99) Arterial Blood pH 7.45 (7.35-7.45) Arterial Blood pCO2 at Patient Temp 46 mmHg (35-46) Arterial Blood pO2 at Patient Temp 142 mmHg (65-108) Arterial Blood HCO3 31 mmol/L (21-28) Arterial Blood Base Excess 6 mmol/L (-3-3) FiO2 40%+5 Laboratory Tests Test 01/07/21 12:44 01/07/21 17:17 01/07/21 23:40 01/08/21 07:40 Glucose (Fingerstick) 119 mg/dL (70-99) 113 mg/dL (70-99) 122 mg/dL (70-99) O2 Saturation 99 % (92-99) Arterial Blood pH 7.45 (7.35-7.45) Arterial Blood pCO2 at Patient Temp 46 mmHg (35-46) Arterial Blood pO2 at Patient Temp 142 mmHg (65-108) Arterial Blood HCO3 31 mmol/L (21-28) Arterial Blood Base Excess 6 mmol/L (-3-3) FiO2 40%+5 Medications Active Scripts Medications Dose Route/Sig Max Daily Dose Days Date Category Dose Instructions Voltaren (Diclofenac Sodium) 100 Gm Gel..gram. 1 Gm TP QID 30 12/10/20 Reported apply to affected area(s) Oxycodone Hcl 5 Mg Capsule 5 Mg PO PRN Q6HRS PRN 12/08/20 Reported Nystatin 15 Gm Powder 1 [place] TP BID 7 12/08/20 Reported apply to affected area(s) Ondansetron Odt (Ondansetron) 4 Mg Tab.rapdis 1 Tab PO PRN Q8HRS PRN 11/05/20 Reported Reglan (Metoclopramide Hcl) 10 Mg Tablet 1 Tab PO QID 30 11/05/20 Reported before food and bedtime Pantoprazole Sodium (Pantoprazole Sodium) 40 Mg Tablet.dr 40 Mg PO BIDAC 30 06/21/20 Rx Losartan Potassium 100 Mg Tablet 100 Mg PO DAILY 05/03/20 Reported Aspirin 325 Mg Tablet 1 Tab PO DAILY 05/03/20 Reported Metformin Hcl 500 Mg Tablet 500 Mg PO BIDWMEALS 05/03/20 Reported Bumetanide 1 Mg Tablet 1 Mg PO BID 04/02/20 Reported Insulin Aspart 100 Unit/1 Ml Vial 60 Unit SQ TIDAC 04/02/20 Reported novolg flex pen Isosorbide Mononitrate Er (Isosorbide Mononitrate) 120 Mg Tab.er.24h 120 Mg PO DAILY 04/02/20 Reported NITROGLYCERIN SubLingual (Nitroglycerin) 0.4 Mg Tab.subl 0.4 Mg SL PRN Q5MIN PRN 04/02/20 Reported Albuterol Sulfate Neb Soln (Albuterol Sulfate) 2.5 Mg/3 Ml Vial.neb 2.5 Mg NEB Q4-6HRS PRN 04/02/20 Reported Levemir Flextouch (Insulin Detemir) 100 Unit/1 Ml Insuln.pen 60 Unit SQ HS 04/02/20 Reported Hydralazine Hcl 25 Mg Tablet 25 Mg PO BID 04/02/20 Reported Fluticasone Propionate Nasal [place] (Fluticasone Propionate) 16 Gm [place].susp 2 [place] NS DAILY 06/18/19 Reported Zolpidem Tartrate 5 Mg Tablet 5 Mg PO PRN QHS PRN 06/18/19 Reported Amlodipine Besylate 10 Mg Tablet 10 Mg PO DAILY 06/18/19 Reported Gabapentin 600 Mg Tablet 600 Mg PO BID 06/18/19 Reported Potassium Chloride (Potassium Chloride) 20 Meq Tablet.er 20 Meq PO BID 06/18/19 Reported Clopidogrel (Clopidogrel Bisulfate) 75 Mg Tablet 75 Mg PO DAILYWBKFT 75 11/10/17 Rx Proair Respiclick (Albuterol Sulfate) 90 Mcg Aer.pow.ba 2 Puff IH PRN Q4-6HRS PRN 09/08/16 Reported Cyclobenzaprine Hcl 10 Mg Tablet 1 Tab PO BID PRN 09/08/16 Reported Requip (Ropinirole Hcl) 1 Mg Tablet 1 Tab PO QHS 09/08/16 Reported Crestor (Rosuvastatin Calcium) 20 Mg Tablet 20 Mg PO HS 10/02/15 Reported LAST DOSE: 10/01/15 BEDTIME NEXT DOSE: 10/02/15 BEDTIME Oxybutynin Chloride 5 Mg Tablet 1 Tab PO DAILY 10/02/15 Reported LAST DOSE: 10/02/15 AM NEXT DOSE: 10/03/15 AM Comments CXR 01/07 IMPRESSION: 1. Diffuse interstitial prominence may be seen with interstitial pulmonary edema or atypical infectious/inflammatory process. 2. Support lines and tubes as above. 3. Mild cardiomegaly. Impression . 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 Echo 12/2019 with LVEF 45%, improved on cath on 12/07 Coronary artery disease with recent -- cath 12/07 showed patent long stented proximal to distal LAD. No lesions needing intervention were noted. Echo with LVEF 55 to 60%. Type 2 diabetes. Chronic obstructive pulmonary disease. Morbid obesity. Hypertension. Obstructive sleep apnea. MIRIAM cr trending down Plan . Updated 01/08 Continue current support Follow neurology input, EEG performed today Dr. 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 Follow Nephrology recs -- MIRIAM with improving renal function -- IVF Follow neurology recs-- anoxic brain injury/not brain --poor prognosis Nutritional Support DVT/GI PPX-- Sub Q heparin D/W RN and RT PLAN: 1. cont vent support setting reviewed, abg reviewed, personally decreased rr to 16 not alert enough to do sbt off sedation 2. cont antibiotics. 3. Monitor blood sugars. 4. Neurology consulted for questionable seizures. on anti sz meds 5. elevate hob 6. DVT and GI prophylaxis. 7. follow Cardiology rec, p.r.n. hydralazine for elevated blood pressure. 8. has le edema, le venous doppler no dvt discussed w rn rt RAF CADET MD Jan 08, 2021 08:27
[2021-01-08 08:28] LABS: CALCIUM 8.6 mg/dL (8.5-10.1); CREATININE 1.2 mg/dL (0.6-1.0); GFR 55.1; MAGNESIUM 2.2 mg/dL (1.8-2.4); POTASSIUM 3.3 mmol/L (3.5-5.1)
[2021-01-08] MEDS: ASPIRIN CHEWABLE 81 MG TABLET. PO SCH (08:30)
[2021-01-08] MEDS: ISOSORBIDE MONONITRATE 20 MG TABLET PO SCH ×2 (08:30→14:07)
--- NOTE | 2021-01-08 08:32 | PDOC ---
[facility] PROGRESS NOTE Date of Service DOS: DATE: 01/08/21 TIME: 08:17 Chief Complaint Chief Complaint Assessment/Plan Respiratory failure SUSPECT aspiration pneumonia Mild prominent interstitial lung markings likely mild congestive changes or interstitial infiltrates Ventricular fib arrest - on amio CAD Extensive stenting of the LAD with the most significant area of restenosis being a 35% lesion in the mid vessel. Mild disease in the right coronary artery. PCI to the LAD and ramus on 10/2017. Cardiac cath on 12/12/2020 with no new disease. Acute renal failure/ MIRIAM Hyperkalemia Aspiration pneumonia Altered mental status Sepsis MORBID OBESITY Severe protein malnutrition HTN urgency - Cont meds, prn IV hydralazine Hyperlipidemia - on statin DM2 - BG controlled. Will cut her lantus given NPO status. A1c 5.6 CKD3 - with IMRIAM, above DIONNE wtih CPAP - asked to bring home BIPAP in if she is extubated COPD - on chronic home O2, will continue current meds Chronic systolic CHF (reduced EF to 42% 12/2019) - cont meds. RLS Peripheral neuropathy ICU BED Consult cardiology Nephrology consult ID CONSULT PULM CONSULT VENT SUPPORT DVT PROPHYLAXIS EMPERIC IV ANTIBIOTICS, Zosyn pending id consult Neurology consult History of Present Illness History of Present Illness Ms Castro is a 60 year old female w/ PMHx Asthma, CAD s/p stenting x6, CHF, COPD, Diabetes-Type II, High Cholesterol, Hypertension, neuropathy, morbid obesity, RLS, insomnia who presented to ER after she was brought here by EMS from home after she was found unresponsive in her bed by her family. Patient was last known normal was 9 AM on 01/03/2021. family tried to call her but could not get a hold of her so they show up to her house, found her unresponsive in her bed. Per family, patient had a CPAP machine on but the mask slid off her face, there was lot of mucus and material around her face and on her neck area. Patient was responsive to painful stimuli but was very confused, did not follow command. EMS were called, they found her in respiratory distress, GCS of 7-8, they bagged her and brought her here. Upon arrival to room, patient was unresponsive to verbal, severe respiratory distress, need emergent intubation. During the difficult intubation patient became bradycardic and CODE BLUE was initiated. Patient subsequently went into ventricular fibrillation, underwent shock therapy and was initiated on intravenous amiodarone infusion and admitted to ICU. She has been admitted to [facility] x2 for intractable nausea and vomiting and PMC once has had this as well as intense pruritis for 6 months. Was seen and treated for same in November, underwent cardiac cath and GI consultation at the time, was discharged home. Her family stated that patient was seen here 2 days prior for epigastric abdominal pain. It was recommended that she need to stay in the hospital however patient did not want to stay in the hospital so she went home. AMA. 01/05: No acute events overnight. Patient seen and examined bedside. Patient remains intubated. Without sedation. Vent settings at 18/450/40/5. Patient is not responding to painful stimuli at this time. There is a lot of secretions. Currently not on any vasopressors 01/06: No acute events overnight. Patient withdraws to pain. Still intubated with vent settings at 16/450/40/5. Not on any sedation at this time. Patient's chart, labs, images were reviewed and discussed with RN 01/07: No overnight events. Afebrile. On vent with no sedation for 48 hours FiO2 40% PEEP of 5. Not requiring vasopressors. Not making meaningful eye contact or meaningful movement. Minimal reflexes. Breathing over the vent. Discussed with son, Lance overall poor prognosis given what is likely anoxic encephalopathy. He wants to discuss with his aunt Liss and sister Camille future goals of care. No events. Afebrile. Still with no meaningful activity no sedation on vent FiO2 40% PEEP of 5, ABG 7.45/46/142. No BM. Adequate UOP. No residuals on feeds. Advance care planning total time spent [id number] with patient's family 32 minutes in discussion with goals of care, comfort care, end-of-life care, pain management, CODE STATUS. Vitals/I&O Vitals/I&O: Vital Signs Date Time Temp Pulse Resp B/P (MAP) Pulse Ox O2 Delivery O2 Flow Rate FiO2 01/08/21 08:15 83 172/72 01/08/21 08:05 18 99 Ventilator 01/08/21 07:25 99.0 99.0 I & O 01/07/21 01/07/21 01/08/21 15:00 23:00 07:00 Intake Total 807.5 ml 1712.5 ml 1163 ml Output Total 430 ml 415 ml 315 ml Balance 377.5 ml 1297.5 ml 848 ml Physical Exam Physical Exam: GENERAL: Intubated/sedated in mittens. HEENT: Normocephalic, atraumatic. ETT /OGT + NECK: Supple though fullness due to body habitus. LUNGS: Decreased breath sounds. No wheezing. HEART: S1, S2. Distant heart sounds. ABDOMEN: Obese. Bowel sounds present. EXTREMITIES: Minimal edema. No cyanosis. NEUROLOGIC: Intubated, sedated. Left IJ clean General: Other Heart: Regular rate Lungs: Crackles Abdomen: Soft Extremities: Other (Trace edema) Labs Labs: Laboratory Tests Test 01/07/21 12:44 01/07/21 17:17 01/07/21 23:40 01/08/21 07:40 Glucose (Fingerstick) 119 mg/dL (70-99) 113 mg/dL (70-99) 122 mg/dL (70-99) O2 Saturation 99 % (92-99) Arterial Blood pH 7.45 (7.35-7.45) Arterial Blood pCO2 at Patient Temp 46 mmHg (35-46) Arterial Blood pO2 at Patient Temp 142 mmHg (65-108) Arterial Blood HCO3 31 mmol/L (21-28) Arterial Blood Base Excess 6 mmol/L (-3-3) FiO2 40%+5 Assessment and Plan Assessmemt and Plan Problems Medical Problems: (1) Acute renal failure Status: Acute (2) Altered mental status Status: Acute (3) Aspiration pneumonia Status: Acute (4) Hyperkalemia Status: Acute (5) Respiratory failure Status: Acute (6) Sepsis Status: Acute Comment Review of Relevant I have reviewed the following items shady (where applicable) has been applied. Medications: Current Medications Medications (Trade) Dose Ordered Sig/Lui Route PRN Reason Start Time Stop Time Status Last Admin Dose Admin Multi-Ingred Cream/Lotion/Oil/ Oint (Artificial Tears Eye Ointment) 1 ashutosh PRN Q1HR PRN OU DRY EYE 01/07/21 13:00 01/07/21 14:14 Aspirin (Blessing Aspirin) 325 mg DAILY PO 01/08/21 09:00 01/08/21 08:12 Clopidogrel Bisulfate (Plavix) 75 mg DAILYWBKFT PO 01/08/21 08:00 01/08/21 08:13 Hydralazine HCl (Apresoline) 25 mg BID PO 01/07/21 21:00 01/08/21 08:13 Losartan Potassium (Cozaar) 100 mg DAILY PO 01/08/21 09:00 01/08/21 08:12 Atorvastatin Calcium (Lipitor) 80 mg QHS PO 01/07/21 21:00 01/07/21 21:18 Metoprolol Tartrate (Lopressor) 12.5 mg BID PO 01/08/21 09:00 01/08/21 08:15 Justifications for Admission Other Justification cardiac arrest DANY CORTES MD Jan 08, 2021 08:32
--- NOTE | 2021-01-08 08:45 | PDOC ---
Infectious Disease Note Subjective: Subjective Patient sedated Remains afebrile Discussed with nursing staff Vital Signs: Vital Signs Vital Signs Date Time Temp Pulse Resp B/P (MAP) Pulse Ox O2 Delivery O2 Flow Rate FiO2 01/08/21 08:30 83 172/72 01/08/21 08:05 18 99 Ventilator 01/08/21 07:25 99.0 99.0 Physical Exam: PHYSICAL EXAM GENERAL: Intubated/sedated in [facility]. HEENT: Normocephalic, atraumatic. Tongue protruded, ETT /OGT + NECK: Supple though fullness due to body habitus. LUNGS: Decreased breath sounds. No wheezing. HEART: S1, S2. Distant heart sounds. ABDOMEN: Obese. Bowel sounds present. EXTREMITIES: Minimal edema. No cyanosis. NEUROLOGIC: Intubated, sedated. Left IJ clean Medications: Inpatient Meds: Medications reviewed. Labs: Lab Laboratory Tests Test 01/07/21 12:44 01/07/21 17:17 01/07/21 23:40 01/08/21 07:40 Glucose (Fingerstick) 119 mg/dL (70-99) 113 mg/dL (70-99) 122 mg/dL (70-99) O2 Saturation 99 % (92-99) Arterial Blood pH 7.45 (7.35-7.45) Arterial Blood pCO2 at Patient Temp 46 mmHg (35-46) Arterial Blood pO2 at Patient Temp 142 mmHg (65-108) Arterial Blood HCO3 31 mmol/L (21-28) Arterial Blood Base Excess 6 mmol/L (-3-3) FiO2 40%+5 Test 01/08/21 08:00 Sodium Level 145 mmol/L (136-145) Potassium Level 3.3 mmol/L (3.5-5.1) Chloride Level 107 mmol/L (98-107) Carbon Dioxide Level 32 mmol/L (21-32) Anion Gap 6 (6-14) Blood Urea Nitrogen 12 mg/dL (7-20) Creatinine 1.2 mg/dL (0.6-1.0) Estimated GFR (Cockcroft-Gault) 55.1 Glucose Level 109 mg/dL (70-99) Calcium Level 8.6 mg/dL (8.5-10.1) Magnesium Level 2.2 mg/dL (1.8-2.4) Creatine Kinase 135 U/L (26-192) Objective: Assessment: 1. Fever. 2. Leukocytosis and lactic acidosis. 3. Acute hypoxic respiratory failure. 4. Suspected aspiration pneumonia. Sputum culture positive for mssa 5. Status post cardiopulmonary arrest. 6. Questionable seizures. Encephalopathy 7. Diabetes mellitus 2. 8. Morbid obesity. 9. Obstructive sleep apnea. 10. Coronary artery disease. 11. Chronic kidney disease 12. Hypernatremia and hyperkalemia. 13 Gram-positive bacteremia bacteremia 2 out of 4 bottles present on admission staph epidermidis Plan: Plan of Care 1. Continue daptomycin ,Zosyn , DC Zyvox 2. Follow up labs and cultures. Follow-up repeat blood cultures 01/06 negative so far 3. Continue supportive care. 4. Critically ill. 5. Prognosis poor. Awaiting EEG Discussed with nursing staff LUDY CRUZ MD Jan 08, 2021 08:45
[2021-01-08] MEDS ORDERED: ISOSORBIDE MONONITRATE ER 30 MG TAB.ER.24H PO SCH (09:00)
[2021-01-08] MEDS ORDERED: METOPROLOL SUCC 24HR ER 25 MG TAB.ER.24H. PO SCH (09:00)
[2021-01-08] MEDS ORDERED: ASPIRIN 325 MG TABLET PO SCH (09:00)
--- NOTE | 2021-01-08 09:03 | PDOC ---
PROGRESS NOTES Date of Service DATE: 01/08/21 TIME: 09:02 Assessment Problems Medical Problems: (1) Acute renal failure Status: Acute (2) Altered mental status Status: Acute (3) Aspiration pneumonia Status: Acute (4) Hyperkalemia Status: Acute (5) Respiratory failure Status: Acute (6) Sepsis Status: Acute Metabolic encephalopathy, only has basic brainstem reflexes Respiratory failure, aspiration pneumonia, possible sepsis Acute STEMI, coronary artery disease status post stenting, chronic obstructive pulmonary disease, asthma, congestive heart failure, morbid obesity, renal failure, hyperkalemia, severe protein malnutrition, hypertensive urgency, hyperlipidemia, type 2 diabetes, obstructive sleep apnea, restless leg syndrome, peripheral neuropathy Plan I will check an EEG, then discussed with family Continue treating medical issues Overall prognosis is poor, but patient is not brain Objective Vital Signs Date Time Temp Pulse Resp B/P (MAP) Pulse Ox O2 Delivery O2 Flow Rate FiO2 01/08/21 08:30 83 172/72 01/08/21 08:05 18 99 Ventilator 01/08/21 07:25 99.0 99.0 Intake and Output 01/08/21 07:00 Intake Total 3683.0 ml Output Total 1160 ml Balance 2523.0 ml Intake IV Total 815.0 ml Tube Feeding 2218 ml Other 650 ml Output Urine Total 1160 ml Gastric Drainage Total 0 ml PHYSICAL EXAM Has been off sedation since 01/05, no response to pain Triggers ventilator Pupils unreactive EOMI. roving eye movements CN: no focal findings. Muscle tone: normal. Muscle strength: No response DTR: 1+ Plantar reflex: Silent Gait: not examined Sensory exam: Not cooperative. Cerebellar: Not cooperative Review of Relevant I have reviewed the following items shady (where applicable) has been applied. Labs Laboratory Tests Test 01/06/21 13:31 01/06/21 17:13 01/06/21 23:20 01/07/21 05:41 Glucose (Fingerstick) 121 mg/dL (70-99) 124 mg/dL (70-99) 132 mg/dL (70-99) 115 mg/dL (70-99) Test 01/07/21 05:50 01/07/21 07:40 01/07/21 12:44 01/07/21 17:17 White Blood Count 9.2 x10^3/uL (4.0-11.0) Red Blood Count 4.14 x10^6/uL (3.50-5.40) Hemoglobin 10.1 g/dL (12.0-15.5) Hematocrit 32.3 % (36.0-47.0) Mean Corpuscular Volume 78 fL (79-100) Mean Corpuscular Hemoglobin 24 pg (25-35) Mean Corpuscular Hemoglobin Concent 31 g/dL (31-37) Red Cell Distribution Width 16.3 % (11.5-14.5) Platelet Count 198 x10^3/uL (140-400) Neutrophils (%) (Auto) 76 % (31-73) Lymphocytes (%) (Auto) 12 % (24-48) Monocytes (%) (Auto) 10 % (0-9) Eosinophils (%) (Auto) 2 % (0-3) Basophils (%) (Auto) 0 % (0-3) Neutrophils # (Auto) 6.9 x10^3/uL (1.8-7.7) Lymphocytes # (Auto) 1.1 x10^3/uL (1.0-4.8) Monocytes # (Auto) 0.9 x10^3/uL (0.0-1.1) Eosinophils # (Auto) 0.2 x10^3/uL (0.0-0.7) Basophils # (Auto) 0.0 x10^3/uL (0.0-0.2) Sodium Level 148 mmol/L (136-145) Potassium Level 3.3 mmol/L (3.5-5.1) Chloride Level 111 mmol/L (98-107) Carbon Dioxide Level 29 mmol/L (21-32) Anion Gap 8 (6-14) Blood Urea Nitrogen 14 mg/dL (7-20) Creatinine 1.4 mg/dL (0.6-1.0) Estimated GFR (Cockcroft-Gault) 46.1 Glucose Level 113 mg/dL (70-99) Calcium Level 8.5 mg/dL (8.5-10.1) Magnesium Level 2.1 mg/dL (1.8-2.4) Troponin I Quantitative 0.606 ng/mL (0.000-0.055) O2 Saturation 99 % (92-99) Arterial Blood pH 7.46 (7.35-7.45) Arterial Blood pCO2 at Patient Temp 46 mmHg (35-46) Arterial Blood pO2 at Patient Temp 142 mmHg (65-108) Arterial Blood HCO3 32 mmol/L (21-28) Arterial Blood Base Excess 7 mmol/L (-3-3) FiO2 40 Glucose (Fingerstick) 119 mg/dL (70-99) 113 mg/dL (70-99) Test 01/07/21 23:40 01/08/21 07:40 01/08/21 08:00 Glucose (Fingerstick) 122 mg/dL (70-99) O2 Saturation 99 % (92-99) Arterial Blood pH 7.45 (7.35-7.45) Arterial Blood pCO2 at Patient Temp 46 mmHg (35-46) Arterial Blood pO2 at Patient Temp 142 mmHg (65-108) Arterial Blood HCO3 31 mmol/L (21-28) Arterial Blood Base Excess 6 mmol/L (-3-3) FiO2 40%+5 Sodium Level 145 mmol/L (136-145) Potassium Level 3.3 mmol/L (3.5-5.1) Chloride Level 107 mmol/L (98-107) Carbon Dioxide Level 32 mmol/L (21-32) Anion Gap 6 (6-14) Blood Urea Nitrogen 12 mg/dL (7-20) Creatinine 1.2 mg/dL (0.6-1.0) Estimated GFR (Cockcroft-Gault) 55.1 Glucose Level 109 mg/dL (70-99) Calcium Level 8.6 mg/dL (8.5-10.1) Magnesium Level 2.2 mg/dL (1.8-2.4) Creatine Kinase 135 U/L (26-192) Laboratory Tests Test 01/07/21 12:44 01/07/21 17:17 01/07/21 23:40 01/08/21 07:40 Glucose (Fingerstick) 119 mg/dL (70-99) 113 mg/dL (70-99) 122 mg/dL (70-99) O2 Saturation 99 % (92-99) Arterial Blood pH 7.45 (7.35-7.45) Arterial Blood pCO2 at Patient Temp 46 mmHg (35-46) Arterial Blood pO2 at Patient Temp 142 mmHg (65-108) Arterial Blood HCO3 31 mmol/L (-28) Arterial Blood Base Excess 6 mmol/L (-3-3) FiO2 40%+5 Test 01/08/21 08:00 Sodium Level 145 mmol/L (136-145) Potassium Level 3.3 mmol/L (3.5-5.1) Chloride Level 107 mmol/L (98-107) Carbon Dioxide Level 32 mmol/L (21-32) Anion Gap 6 (6-14) Blood Urea Nitrogen 12 mg/dL (7-20) Creatinine 1.2 mg/dL (0.6-1.0) Estimated GFR (Cockcroft-Gault) 55.1 Glucose Level 109 mg/dL (70-99) Calcium Level 8.6 mg/dL (8.5-10.1) Magnesium Level 2.2 mg/dL (1.8-2.4) Creatine Kinase 135 U/L (26-192) Microbiology 01/06/21 Blood Culture - Preliminary, Resulted NO GROWTH AFTER 1 DAY 01/05/21 Gram Stain Evaluation - Final, Complete 01/05/21 Respiratory Culture - Final, Complete 01/05/21 Antimicrobic Susceptibility - Final, Complete 01/04/21 Urine Culture - Final, Complete Medications Current Medications Amiodarone HCl 450 mg/Dextrose 259 ml @ 33 mls/hr 1X ONCE IV Last administered on 01/04/21at 11:40; Start 01/04/21 at 11:15; Stop 01/04/21 at 19:05; Status DC Midazolam HCl 100 ml @ 1 mls/hr 1X ONCE IV Last administered on 01/04/21at 11:39; Start 01/04/21 at 11:30; Stop 01/05/21 at 09:51; Status DC Sodium Chloride 1,000 ml @ 1,000 mls/hr 1X ONCE IV Last administered on 01/04/21at 12:13; Start 01/04/21 at 11:45; Stop 01/04/21 at 12:44; Status DC Sodium Bicarbonate (Sodium Bicarb Adult 8.4% Syr) 50 meq 1X ONCE IV Last administered on 01/04/21at 12:55; Start 01/04/21 at 12:00; Stop 01/04/21 at 12:01; Status DC Dextrose (Dextrose 50%-Water Syringe) 25 gm 1X ONCE IV Last administered on 01/04/21at 12:53; Start 01/04/21 at 12:00; Stop 01/04/21 at 12:01; Status DC Insulin Human Regular (HumuLIN R VIAL) 10 unit 1X ONCE IV Last administered on 01/04/21at 12:52; Start 01/04/21 at 12:00; Stop 01/04/21 at 12:01; Status DC Piperacillin Sod/ Tazobactam Sod 3.375 gm/Sodium Chloride 50 ml @ 100 mls/hr 1X ONCE IV Last administered on 01/04/21at 12:12; Start 01/04/21 at 12:00; Stop 01/04/21 at 12:29; Status DC Succinylcholine Chloride (Anectine) 100 mg 1X ONCE IV Last administered on 01/04/21at 11:03; Start 01/04/21 at 12:45; Stop 01/04/21 at 12:46; Status DC Etomidate (Amidate) 20 mg 1X ONCE IV Last administered on 01/04/21at 11:02; Start 01/04/21 at 12:45; Stop 01/04/21 at 12:46; Status DC Rocuronium [place] (Zemuron) 100 mg 1X ONCE IV ; Start 01/04/21 at 12:45; Stop 01/04/21 at 12:46; Status Cancel Midazolam HCl (Versed) 5 mg 1X ONCE IV Last administered on 01/04/21at 11:30; Start 01/04/21 at 12:45; Stop 01/04/21 at 12:46; Status DC Rocuronium [place] (Zemuron) 100 mg 1X ONCE IV Last administered on 01/04/21at 11:33; Start 01/04/21 at 12:45; Stop 01/04/21 at 12:46; Status DC Ondansetron HCl (Zofran) 4 mg PRN Q8HRS PRN IV NAUSEA/VOMITING; Start 01/04/21 at 13:00; Stop 01/05/21 at 09:48; Status DC Sodium Chloride 1,000 ml @ 100 mls/hr Q10H IV Last administered on 01/05/21at 09:41; Start 01/04/21 at 13:00; Stop 01/05/21 at 12:59; Status DC Ondansetron HCl (Zofran) 4 mg PRN Q6HRS PRN IVP NAUSEA/VOMITING; Start 01/04/21 at 14:00 Famotidine (Pepcid Vial) 20 mg QHS IVP Last administered on 01/07/21at 21:19; Start 01/04/21 at 21:00 Heparin Sodium (Porcine) (Heparin Sodium) 5,000 unit Q8HRS SQ Last administered on 01/08/21at 06:02; Start 01/04/21 at 14:00 Sodium Chloride (Normal Saline Flush) 3 ml QSHIFT PRN IV AFTER MEDS AND BLOOD DRAWS; Start 01/04/21 at 14:00 Bisacodyl (Dulcolax Supp) 10 mg PRN DAILY PRN PA CONSTIPATION; Start 01/04/21 at 14:00 Piperacillin Sod/ Tazobactam Sod (Zosyn Per Pharmacy) 1 each PRN DAILY PRN MC SEE COMMENTS; Start 01/04/21 at 14:00; Stop 01/04/21 at 17:48; Status DC Piperacillin Sod/ Tazobactam Sod 2.25 gm/Sodium Chloride 50 ml @ 100 mls/hr Q6HRS IV ; Start 01/04/21 at 18:00; Stop 01/04/21 at 17:49; Status DC Dextrose (Dextrose 50%-Water Syringe) 25 gm 1X ONCE IV Last administered on 01/04/21at 16:21; Start 01/04/21 at 16:15; Stop 01/04/21 at 16:16; Status DC Meropenem 500 mg/ Sodium Chloride 50 ml @ 100 mls/hr Q8HRS IV ; Start 01/04/21 at 18:00; Status Cancel Piperacillin Sod/ Tazobactam Sod 2.25 gm/Sodium Chloride 50 ml @ 100 mls/hr Q8HRS IV Last administered on 01/08/21at 06:01; Start 01/04/21 at 22:00; Stop 01/08/21 at 07:50; Status DC Linezolid/Dextrose 300 ml @ 300 mls/hr Q12HR IV Last administered on 01/07/21at 21:23; Start 01/04/21 at 21:00 Valproic Acid 500 mg/Dextrose 55 ml @ 55 mls/hr Q12HR IV Last administered on 01/05/21at 09:40; Start 01/05/21 at 09:00; Stop 01/05/21 at 17:28; Status DC Valproic Acid 1000 mg/Dextrose 60 ml @ 60 mls/hr 1X ONCE IV Last administered on 01/04/21at 19:30; Start 01/04/21 at 19:30; Stop 01/04/21 at 20:29; Status DC Lorazepam (Ativan Inj) 2 mg PRN Q2HRS PRN IVP ANXIETY / AGITATION Last administered on 01/05/21at 23:30; Start 01/04/21 at 19:30; Stop 01/08/21 at 08:16; Status DC Hydralazine HCl (Apresoline Inj) 10 mg PRN Q6HRS PRN IVP ELEVATED BP, SEE COMMENTS Last administered on 01/07/21at 10:04; Start 01/04/21 at 19:45 Amiodarone HCl 450 mg/Dextrose 259 ml @ 33 mls/hr CONT PRN IV SEE I/O RECORD Last administered on 01/05/21at 11:50; Start 01/04/21 at 20:15; Stop 01/05/21 at 11:50; Status DC Midazolam HCl 100 ml @ 1 mls/hr CONT PRN IV SEE I/O RECORD Last administered on 01/05/21at 02:00; Start 01/05/21 at 02:00; Stop 01/08/21 at 08:16; Status DC Daptomycin 600 mg/ Sodium Chloride 50 ml @ 100 mls/hr Q48H IV Last administered on 01/07/21at 15:40; Start 01/05/21 at 16:00; Stop 01/08/21 at 07:52; Status DC Scopolamine (Transderm-Scop) 1 patch Q3DAYS TD Last administered on 01/08/21at 08:08; Start 01/05/21 at 17:00; Stop 01/08/21 at 08:16; Status DC Valproic Acid 750 mg/Dextrose 57.5 ml @ 57.5 mls/hr Q12HR IV Last administered on 01/08/21at 08:10; Start 01/05/21 at 21:00 Insulin Human Lispro (HumaLOG) 0-5 UNITS TIDWMEALS SQ Last administered on 01/05/21at 18:27; Start 01/05/21 at 18:30; Stop 01/06/21 at 08:42; Status DC Dextrose (Dextrose 50%-Water Syringe) 12.5 gm PRN Q15MIN PRN IV SEE COMMENTS; Start 01/05/21 at 18:15 Amiodarone HCl 450 mg/Dextrose 259 ml @ 0 mls/hr 1X ONCE IV Last administered on 01/06/21at 02:00; Start 01/06/21 at 02:00; Stop 01/06/21 at 02:01; Status DC Insulin Human Lispro (HumaLOG) 0-5 UNITS Q6HRS SQ ; Start 01/06/21 at 12:00 Amiodarone HCl 450 mg/Dextrose 259 ml @ 0 mls/hr 1X ONCE IV Last administered on 01/06/21at 17:05; Start 01/06/21 at 17:00; Stop 01/06/21 at 17:01; Status DC Amiodarone HCl (Cordarone) 400 mg DAILY PO ; Start 01/07/21 at 14:00; Stop 01/07/21 at 13:15; Status DC Multi-Ingred Cream/Lotion/Oil/ Oint (Artificial Tears Eye Ointment) 1 chio PRN Q1HR PRN OU DRY EYE Last administered on 01/07/21at 14:14; Start 01/07/21 at 13:00 Aspirin (Blessing Aspirin) 325 mg DAILY PO Last administered on 01/08/21at 08:12; Start 01/08/21 at 09:00 Clopidogrel Bisulfate (Plavix) 75 mg DAILYWBKFT PO Last administered on 01/08/21at 08:13; Start 01/08/21 at 08:00 Hydralazine HCl (Apresoline) 25 mg BID PO Last administered on 01/08/21at 08:13; Start 01/07/21 at 21:00 Metoprolol Succinate (Toprol Xl) 25 mg DAILY PO ; Start 01/08/21 at 09:00; Stop 01/08/21 at 07:44; Status DC Isosorbide Mononitrate (Imdur) 120 mg DAILY PO ; Start 01/08/21 at 09:00; Stop 01/08/21 at 08:16; Status DC Losartan Potassium (Cozaar) 100 mg DAILY PO Last administered on 01/08/21at 08:12; Start 01/08/21 at 09:00 Atorvastatin Calcium (Lipitor) 80 mg QHS PO Last administered on 01/07/21at 21:18; Start 01/07/21 at 21:00 Epinephrine HCl (EPINEPHrine SYRINGE) 2 mg STK-MED ONCE .ROUTE ; Start 01/04/21 at 11:00; Stop 01/07/21 at 17:12; Status DC Amiodarone HCl (Cordarone) 300 mg STK-MED ONCE .ROUTE ; Start 01/04/21 at 11:00; Stop 01/07/21 at 17:12; Status DC Metoprolol Tartrate (Lopressor) 12.5 mg BID PO Last administered on 01/08/21at 08:15; Start 01/08/21 at 09:00 Piperacillin Sod/ Tazobactam Sod 3.375 gm/Sodium Chloride 50 ml @ 100 mls/hr Q6HRS IV ; Start 01/08/21 at 12:00 Daptomycin 600 mg/ Sodium Chloride 50 ml @ 100 mls/hr Q24H IV ; Start 01/08/21 at 16:00 Isosorbide Mononitrate (Ismo) 20 mg BID92 PO Last administered on 01/08/21at 08:30; Start 01/08/21 at 09:00 Aspirin (Aspirin Chewable) 81 mg DAILYWBKFT PO ; Start 01/08/21 at 08:30 Glycopyrrolate (Robinul) 1 mg PRN DAILY PRN IV Secretions; Start 01/08/21 at 08:45 Active Scripts Active Promethazine Hcl 12.5 Mg Tablet 12.5 Mg PO PRN Q6HRS PRN 30 Days Metoprolol Succinate ( Xl ) (Metoprolol Succinate) 25 Mg Tab.er.24h 25 Mg PO DAILY 30 Days Pantoprazole Sodium (Pantoprazole Sodium) 40 Mg Tablet.dr 40 Mg PO BIDAC 30 Days Clopidogrel (Clopidogrel Bisulfate) 75 Mg Tablet 75 Mg PO DAILYWBKFT 75 Days Reported Voltaren (Diclofenac Sodium) 100 Gm Gel..gram. 1 Gm TP QID 30 Days apply to affected area(s) Nystatin 15 Gm Powder 1 Chio TP BID 7 Days apply to affected area(s) Ondansetron Odt (Ondansetron) 4 Mg Tab.rapdis 1 Tab PO PRN Q8HRS PRN Reglan (Metoclopramide Hcl) 10 Mg Tablet 1 Tab PO QID 30 Days before food and bedtime Losartan Potassium 100 Mg Tablet 100 Mg PO DAILY Aspirin 325 Mg Tablet 1 Tab PO DAILY Metformin Hcl 500 Mg Tablet 500 Mg PO BIDWMEALS Bumetanide 1 Mg Tablet 1 Mg PO BID Insulin Aspart 100 Unit/1 Ml Vial 60 Unit SQ TIDAC novolg flex pen Isosorbide Mononitrate Er (Isosorbide Mononitrate) 120 Mg Tab.er.24h 120 Mg PO DAILY NITROGLYCERIN SubLingual (Nitroglycerin) 0.4 Mg Tab.subl 0.4 Mg SL PRN Q5MIN PRN Albuterol Sulfate Neb Soln (Albuterol Sulfate) 2.5 Mg/3 Ml Vial.neb 2.5 Mg NEB Q4-6HRS PRN Levemir Flextouch (Insulin Detemir) 100 Unit/1 Ml Insuln.pen 60 Unit SQ HS Hydralazine Hcl 25 Mg Tablet 25 Mg PO BID Fluticasone Propionate Nasal [place] (Fluticasone Propionate) 16 Gm [place].susp 2 [place] NS DAILY Zolpidem Tartrate 5 Mg Tablet 5 Mg PO PRN QHS PRN Amlodipine Besylate 10 Mg Tablet 10 Mg PO DAILY Gabapentin 600 Mg Tablet 600 Mg PO BID Potassium Chloride (Potassium Chloride) 20 Meq Tablet.er 20 Meq PO BID Proair Respiclick (Albuterol Sulfate) 90 Mcg Aer.pow.ba 2 Puff IH PRN Q4-6HRS PRN Cyclobenzaprine Hcl 10 Mg Tablet 1 Tab PO BID PRN Requip (Ropinirole Hcl) 1 Mg Tablet 1 Tab PO QHS Crestor (Rosuvastatin Calcium) 20 Mg Tablet 20 Mg PO HS LAST DOSE: 10/01/15 BEDTIME NEXT DOSE: 10/02/15 BEDTIME Oxybutynin Chloride 5 Mg Tablet 1 Tab PO DAILY LAST DOSE: 10/02/15 AM NEXT DOSE: 10/03/15 AM Vitals/I & O Vital Sign - Last 24 Hours 01/07/21 01/07/21 01/07/21 01/07/21 09:25 10:00 10:04 11:06 Pulse 76 76 87 Resp 17 17 B/P (MAP) 194/80 (118) 194/80 155/63 (93) Pulse Ox 99 100 99 O2 Delivery Ventilator Ventilator Ventilator 01/07/21 01/07/21 01/07/21 01/07/21 11:41 12:13 12:26 13:02 Temp 98.9 98.9 Pulse 86 91 Resp 16 17 B/P (MAP) 148/78 (101) 172/65 (100) Pulse Ox 99 99 99 O2 Delivery Ventilator Mechanical Ventilator Ventilator Ventilator 01/07/21 01/07/21 01/07/21 01/07/21 13:35 14:07 15:11 15:40 Pulse 77 87 Resp 16 17 B/P (MAP) 118/50 (72) 152/76 (101) Pulse Ox 100 100 100 99 O2 Delivery Ventilator Ventilator Ventilator Ventilator 01/07/21 01/07/21 01/07/21 01/07/21 15:52 16:25 17:09 17:10 Temp 98.9 98.9 Pulse 91 89 Resp 16 16 B/P (MAP) 166/71 (102) 177/76 (109) Pulse Ox 100 100 100 O2 Delivery Mechanical Ventilator Ventilator Ventilator Ventilator 01/07/21 01/07/21 01/07/21 01/07/21 18:04 19:00 20:00 20:00 Temp 99.3 99.3 Pulse 87 90 89 Resp 16 18 18 B/P (MAP) 174/81 (112) 172/78 (109) 169/54 (92) Pulse Ox 99 99 98 O2 Delivery Ventilator Ventilator Ventilator Mechanical Ventilator 01/07/21 01/07/21 01/07/21 01/07/21 20:28 21:00 21:19 22:00 Pulse 86 83 74 Resp 18 18 B/P (MAP) 158/59 (92) 158/59 95/44 (61) Pulse Ox 98 99 99 O2 Delivery Ventilator Ventilator Ventilator 01/07/21 01/07/21 01/08/21 01/08/21 22:31 23:00 00:00 00:00 Temp 98.6 98.6 Pulse 79 90 Resp 18 18 B/P (MAP) 103/49 (67) 159/63 (95) Pulse Ox 99 99 99 O2 Delivery Ventilator Ventilator Ventilator Mechanical Ventilator 01/08/21 01/08/21 01/08/21 01/08/21 00:15 01:00 02:00 02:53 Pulse 74 84 Resp 18 18 B/P (MAP) 103/49 (67) 165/71 (102) Pulse Ox 99 99 99 99 O2 Delivery Ventilator Ventilator Ventilator Ventilator 01/08/21 01/08/21 01/08/21 01/08/21 03:00 04:00 04:00 05:00 Temp 98.9 98.9 Pulse 80 83 76 Resp 18 18 18 B/P (MAP) 156/61 (92) 171/73 (105) 160/70 (100) Pulse Ox 99 99 99 O2 Delivery Ventilator Mechanical Ventilator Ventilator Ventilator 01/08/21 01/08/21 01/08/21 01/08/21 05:30 06:00 07:25 07:31 Temp 99.0 99.0 Pulse 74 78 Resp 18 18 B/P (MAP) 169/65 (99) 157/69 (98) Pulse Ox 99 99 99 100 O2 Delivery Ventilator Ventilator Ventilator Ventilator 01/08/21 01/08/21 01/08/21 01/08/21 07:47 08:05 08:12 08:13 Pulse 83 83 83 Resp 18 B/P (MAP) 172/72 (105) 172/72 172/72 Pulse Ox 99 O2 Delivery Mechanical Ventilator Ventilator 01/08/21 01/08/21 08:15 08:30 Pulse 83 83 B/P (MAP) 172/72 172/72 Intake and Output 01/07/21 01/07/21 01/08/21 15:00 23:00 07:00 Intake Total 807.5 ml 1712.5 ml 1163 ml Output Total 430 ml 415 ml 315 ml Balance 377.5 ml 1297.5 ml 848 ml Justicifation of Admission Dx: Justifications for Admission: Justification of Admission Dx: Yes SWATHI BOOTH MD Jan 08, 2021 09:03
--- NOTE | 2021-01-08 11:20 | PDOC ---
Renal-Progress Notes Subjective Notes Notes ON THE VENT History of Present Illness Hx of present illness STABLE Vitals Vitals Vital Signs Date Time Temp Pulse Resp B/P (MAP) Pulse Ox O2 Delivery O2 Flow Rate FiO2 01/08/21 11:14 99 Ventilator 01/08/21 11:07 99.2 70 16 158/62 (94) 99.2 Weight Weight [ ] I.O. Intake and Output Intake and Output 01/08/21 07:00 Intake Total 3683.0 ml Output Total 1160 ml Balance 2523.0 ml Intake IV Total 815.0 ml Tube Feeding 2218 ml Other 650 ml Output Urine Total 1160 ml Gastric Drainage Total 0 ml Labs Labs Laboratory Tests Test 01/07/21 12:44 01/07/21 17:17 01/07/21 23:40 01/08/21 07:40 Glucose (Fingerstick) 119 mg/dL (70-99) 113 mg/dL (70-99) 122 mg/dL (70-99) O2 Saturation 99 % (92-99) Arterial Blood pH 7.45 (7.35-7.45) Arterial Blood pCO2 at Patient Temp 46 mmHg (35-46) Arterial Blood pO2 at Patient Temp 142 mmHg (65-108) Arterial Blood HCO3 31 mmol/L (21-28) Arterial Blood Base Excess 6 mmol/L (-3-3) FiO2 40%+5 Test 01/08/21 08:00 01/08/21 11:09 Sodium Level 145 mmol/L (136-145) Potassium Level 3.3 mmol/L (3.5-5.1) Chloride Level 107 mmol/L (98-107) Carbon Dioxide Level 32 mmol/L (21-32) Anion Gap 6 (6-14) Blood Urea Nitrogen 12 mg/dL (7-20) Creatinine 1.2 mg/dL (0.6-1.0) Estimated GFR (Cockcroft-Gault) 55.1 Glucose Level 109 mg/dL (70-99) Calcium Level 8.6 mg/dL (8.5-10.1) Magnesium Level 2.2 mg/dL (1.8-2.4) Creatine Kinase 135 U/L (26-192) Glucose (Fingerstick) 112 mg/dL (70-99) Micro Micro Microbiology 01/06/21 Blood Culture - Preliminary, Resulted NO GROWTH AFTER 1 DAY 01/05/21 Gram Stain Evaluation - Final, Complete 01/05/21 Respiratory Culture - Final, Complete 01/05/21 Antimicrobic Susceptibility - Final, Complete 01/04/21 Urine Culture - Final, Complete Review of Systems Constitutional: yes: unresponsive Physical Exam General Appearance: no apparent distress, febrile Respiratory: ventilator (Mode:A/C), decreased breath sounds Heart: S1S2 Abdomen: soft Genitourinary: bladder flat Extremities: pulses present, no edema Neurology: other (sedated ) Assessment Assessment IMP [id number] OF 2.4 TO 1.2 HYPERNATREMIA-IMPROVED HYPOKALEMIA ACUTE RESP FAILURE PROB PNEUMONIA DM II DIONNE OBESITY BACTEREMIA PLAN ANTIBIOTICS REPLACE K ANTIBIOTICS INCREASE WATER FLUSHES CONT WITH TF VENT SUPPORT REMAINS CRITICALLY ILL WILL FOLLOW EFE PRICE MD Jan 08, 2021 11:20
--- NOTE | 2021-01-08 12:29 | PDOC ---
JOSE EDUARDO [employer] 01/08/21 1229: CARDIO Progress Notes Date and Time Date of Service 01/08/21 Time of Evaluation 1230 Subjective Subjective: Other (intubated, having seizures ) Vitals Vitals Vital Signs Date Time Temp Pulse Resp B/P (MAP) Pulse Ox O2 Delivery O2 Flow Rate FiO2 01/08/21 12:03 73 18 157/68 (97) 99 Ventilator 01/08/21 11:07 99.2 99.2 Weight Weight [ ] Input and Output Intake and Output Intake and Output 01/08/21 07:00 Intake Total 3683.0 ml Output Total 1160 ml Balance 2523.0 ml Intake IV Total 815.0 ml Tube Feeding 2218 ml Other 650 ml Output Urine Total 1160 ml Gastric Drainage Total 0 ml Laboratory Labs Laboratory Tests Test 01/07/21 12:44 01/07/21 17:17 01/07/21 23:40 01/08/21 07:40 Glucose (Fingerstick) 119 mg/dL (70-99) 113 mg/dL (70-99) 122 mg/dL (70-99) O2 Saturation 99 % (92-99) Arterial Blood pH 7.45 (7.35-7.45) Arterial Blood pCO2 at Patient Temp 46 mmHg (35-46) Arterial Blood pO2 at Patient Temp 142 mmHg (65-108) Arterial Blood HCO3 31 mmol/L (21-28) Arterial Blood Base Excess 6 mmol/L (-3-3) FiO2 40%+5 Test 01/08/21 08:00 01/08/21 11:09 Sodium Level 145 mmol/L (136-145) Potassium Level 3.3 mmol/L (3.5-5.1) Chloride Level 107 mmol/L (98-107) Carbon Dioxide Level 32 mmol/L (21-32) Anion Gap 6 (6-14) Blood Urea Nitrogen 12 mg/dL (7-20) Creatinine 1.2 mg/dL (0.6-1.0) Estimated GFR (Cockcroft-Gault) 55.1 Glucose Level 109 mg/dL (70-99) Calcium Level 8.6 mg/dL (8.5-10.1) Magnesium Level 2.2 mg/dL (1.8-2.4) Creatine Kinase 135 U/L (26-192) Glucose (Fingerstick) 112 mg/dL (70-99) Microbiology Micro Microbiology 01/06/21 Blood Culture - Preliminary, Resulted NO GROWTH AFTER 1 DAY 01/05/21 Gram Stain Evaluation - Final, Complete 01/05/21 Respiratory Culture - Final, Complete 01/05/21 Antimicrobic Susceptibility - Final, Complete 01/04/21 Urine Culture - Final, Complete Review of Systems Constitutional: yes: unresponsive Physical Exam HEENT: Neck Supple W Full Motion LUNGS: Other (mechanical vent ) Heart: RRR (SR) Abdomen: Other (soft ) Extremities: No Edema Neurology: other (off sedation. Pupils fixed. not following commands ) Assessment Assessment 1. Acute hypoxic hypercapnic respiratory failure with probable aspiration PNA. s/p intubation 2. 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 Echo 12/2019 with LVEF 45%. 3. VFIB during difficult intubation; possibly precipitated by hypoxia. No further arrhythmias noted on tele. off Amiodarone 4. Mild troponin elevation; 0.6. most probably type II, demand ischemia secondary to CPR/defibrillation. EKG shows SR with RBBB 5. CAD; cath 12/07 showed patent long stented proximal to distal LAD. No lesions needing intervention were noted. Echo with LVEF 55 to 60%. 6. Hypertension; slightly labile 7. Hyperlipidemia; statin therapy 8. Diabetes, II; as per IM 9. MIRIAM; Cr better 10. COPD, DIONNE: home CPAP 11. Hypokalemia 12. Anoxic encephalopathy, seizures; as per neuro 13. Leukocytosis, lactic acidosis, bacteremia; BC with GPC Recommendations Continue current secondary prevention measures including ASA/Plavix, statin, and BB therapy Hydralazine IV PRN Ongoing lung optimization, treatment of PNA Prognosis poor Supportive care Justicifation of Admission Dx: Justifications for Admission: Justification of Admission Dx: Yes ERICA ADEN MD 01/08/21 8831: CARDIO Progress Notes Assessment Assessment Patient seen and examined. Agree with SWITCHBOARD OPERATOR RECEPTIONIST's assessment and plan. No further episodes of VT/VF recorded. She is currently off amiodarone. CAD status clinically stable. Slight troponin elevation probably demand is chemia. Continue vent management per pulmonary team. JOSE EDUARDO GRECO APRN Jan 08, 2021 12:29 ERICA ADEN MD Jan 08, 2021 16:55
[2021-01-08] MEDS: POTASSIUM CHLORIDE 10MEQ 100 ML IV SCH ×2 (12:32→13:37)
[2021-01-08] MEDS: PIPERACILLIN/TAZOBACTAM 3.375 GM in IV NORMAL SALINE 50ML 50 ML IV SCH ×3 (12:33→23:41)
--- NOTE | 2021-01-08 12:39 | NUR ---
SS following up with discharge planning. SS reviewed pt chart and discussed with RN. Pt is currently on the vent at 40%. Pt on IV Daptomycin and IV Zosyn. No sedation. Pt not responsive. EEG today. Neurology following. Not stable. SS will continue to follow for discharge planning.
--- NOTE | 2021-01-08 13:42 | RAD ---
EXAMINATION: Chest radiograph. VIEWS: Single view COMPARISON: 01/07/2021 INDICATION:60 years, Female, pneumonia. FINDINGS: Stable cardiomediastinal silhouette. Slightly worsening diffuse bilateral interstitial markings with increased retrocardiac opacity No pleural effusion or pneumothorax. No acute osseous process. Left IJ central venous catheter is unchanged in position. Enteric tube tip is off image, presumably in the s tomach. IMPRESSION: Slightly worsening diffuse bilateral interstitial markings with increased retrocardiac opacity. Diffe rential includes worsening pulmonary edema versus multifocal infection. Electronically signed by: Jose Wharton MD (01/08/2021 6:59 AM) [facility]
--- NOTE | 2021-01-08 14:28 | EEG ---
OBJECTIVE: The patient is a 60-year-old female with suspected anoxic encephalopathy. DESCRIPTION: This is a digital study. Electrodes were placed according to the international 10-20 system. Bipolar and referential montages are available. Activation procedures typically include hyperventilation and intermittent photic stimulation. INTERPRETATION: The record consists of a burst suppression pattern with bilateral periodic lateralizing epileptiform discharges. No normal sleep patterns are observed. There is no reactivity to intermittent photic stimulation. Hyperventilation is not performed. IMPRESSION: This electroencephalogram, with the patient in an obtunded state, is abnormal because of a severe diffuse disturbance of cerebral activity, consistent with a very poor prognosis from anoxic encephalopathy. Thank you for letting us help with the patient's care. MADISYN/AMMY DR: Bre TID: [id number]
[2021-01-08] MEDS: DAPTOmycin (GENERIC) IVPB 600 MG in IV NORMAL SALINE 50ML 50 ML IV SCH (16:14)
[2021-01-08] MEDS: FAMOTIDINE 20 MG/2 ML VIAL IVP SCH (20:32)
[2021-01-08] MEDS: ATORVASTATIN CALCIUM 40 MG TABLET. PO SCH (20:32)
--- NOTE | 2021-01-08 23:55 | NUR ---
Respiratory therapist checking vent at 2330 noticed ETT had been withdrawn to 18Cm at the teeth. ETT pushed back to 23CM at the teeth and portable CXR ordered STAT/completed; CXR resulted ETT was in same position as previously noted on CXR done early am 01/08/21.
--- NOTE | 2021-01-08 23:56 | RAD ---
AP chest. HISTORY: Intubated AP view was taken of the chest. Endotracheal tube is above the aortic arch at the bottom of the clavi cles. NG tube extends into the stomach. Left central line is unchanged extending to the top of the patrick perior vena cava. Left lung base is poorly evaluated. There is mild basilar atelectasis or infiltrate s. IMPRESSION: 1. Endotracheal tube in position similar to the previous study. 2. NG tube and central line unchanged. 3. Little change from the recent study. Electronically signed by: Gregg Amaya MD (01/08/2021 11:54 PM) [facility]
[2021-01-09] VITALS (24 sets, daily range): BP systolic 96–187; BP diastolic 39–88
[2021-01-09] MEDS: hydrALAZINE 20 MG/ML VIAL. IVP PRN ×2 (04:23→16:37)
[2021-01-09] MEDS: PIPERACILLIN/TAZOBACTAM 3.375 GM in IV NORMAL SALINE 50ML 50 ML IV SCH ×3 (05:35→17:22)
[2021-01-09] MEDS: HEPARIN for SUB-Q USE 5,000 UNIT/ML VIAL. SQ SCH ×3 (05:36→22:38)
[2021-01-09] MEDS: INSULIN LISPRO 300 UNITS/3 ML VIAL. SQ SCH ×3 (05:36→17:22)
[2021-01-09 06:32] LABS: CALCIUM 8.8 mg/dL (8.5-10.1); CREATININE 1.2 mg/dL (0.6-1.0); GFR 55.1; POTASSIUM 3.2 mmol/L (3.5-5.1)
--- NOTE | 2021-01-09 07:58 | PDOC ---
[employer] PROGRESS NOTE Date of Service DOS: DATE: 01/09/21 TIME: 07:57 Chief Complaint Chief Complaint Assessment/Plan Respiratory failure SUSPECT aspiration pneumonia Mild prominent interstitial lung markings likely mild congestive changes or interstitial infiltrates Ventricular fib arrest - on amio CAD Extensive stenting of the LAD with the most significant area of restenosis being a 35% lesion in the mid vessel. Mild disease in the right coronary artery. PCI to the LAD and ramus on 10/2017. Cardiac cath on 12/12/2020 with no new disease. Acute renal failure/ MIRIAM Hyperkalemia Aspiration pneumonia Altered mental status Sepsis MORBID OBESITY Severe protein malnutrition HTN urgency - Cont meds, prn IV hydralazine Hyperlipidemia - on statin DM2 - BG controlled. Will cut her lantus given NPO status. A1c 5.6 CKD3 - with MIRIAM, above DIONNE wtih CPAP - asked to bring home BIPAP in if she is extubated COPD - on chronic home O2, will continue current meds Chronic systolic CHF (reduced EF to 42% 12/2019) - cont meds. RLS Peripheral neuropathy ICU BED Consult cardiology Nephrology consult ID CONSULT PULM CONSULT VENT SUPPORT DVT PROPHYLAXIS EMPERIC IV ANTIBIOTICS, Zosyn pending id consult Neurology consult History of Present Illness History of Present Illness Ms Castro is a 60 year old female w/ PMHx Asthma, CAD s/p stenting x6, CHF, COPD, Diabetes-Type II, High Cholesterol, Hypertension, neuropathy, morbid obesity, RLS, insomnia who presented to ER after she was brought here by EMS from home after she was found unresponsive in her bed by her family. Patient was last known normal was 9 AM on 01/03/2021. family tried to call her but could not get a hold of her so they show up to her house, found her unresponsive in her bed. Per family, patient had a CPAP machine on but the mask slid off her face, there was lot of mucus and material around her face and on her neck area. Patient was responsive to painful stimuli but was very confused, did not follow command. EMS were called, they found her in respiratory distress, GCS of 7-8, they bagged her and brought her here. Upon arrival to room, patient was unresponsive to verbal, severe respiratory distress, need emergent intubation. During the difficult intubation patient became bradycardic and CODE BLUE was initiated. Patient subsequently went into ventricular fibrillation, underwent shock therapy and was initiated on intravenous amiodarone infusion and admitted to ICU. She has been admitted to [facility] x2 for intractable nausea and vomiting and PMC once has had this as well as intense pruritis for 6 months. Was seen and treated for same in November, underwent cardiac cath and GI consultation at the time, was discharged home. Her family stated that patient was seen here 2 days prior for epigastric abdominal pain. It was recommended that she need to stay in the hospital however patient did not want to stay in the hospital so she went home. AMA. 01/05: No acute events overnight. Patient seen and examined bedside. Patient remains intubated. Without sedation. Vent settings at 18/450/40/5. Patient is not responding to painful stimuli at this time. There is a lot of secretions. Currently not on any vasopressors 01/06: No acute events overnight. Patient withdraws to pain. Still intubated with vent settings at 16/450/40/5. Not on any sedation at this time. Patient's chart, labs, images were reviewed and discussed with RN 01/07: No overnight events. Afebrile. On vent with no sedation for 48 hours FiO2 40% PEEP of 5. Not requiring vasopressors. Not making meaningful eye contact or meaningful movement. Minimal reflexes. Breathing over the vent. Discussed with son, Lance overall poor prognosis given what is likely anoxic encephalopathy. He wants to discuss with his aunt Liss and sister Camille future goals of care. 01/08: No events. Afebrile. Still with no meaningful activity no sedation on vent FiO2 40% PEEP of 5, ABG 7.45/46/142. No BM. Adequate UOP. No residuals on feeds. EEG interpreted by neurology as abnormal because of a severe diffuse disturbance of cerebral activity, consistent with a very poor prognosis from anoxic encephalopathy. Overnight ventilated no significant activity he still off sedation. K3.2. Vent FiO2 40% PEEP of 5. Chest radiograph unchanged from prior. Right hand with new twitching, concerning for seizure activity, d/w neurology. Advance care planning total time spent [id number] with patient's family 17 minutes in discussion with goals of care, comfort care, end-of-life care, pain management, CODE STATUS. Vitals/I&O Vitals/I&O: Vital Signs Date Time Temp Pulse Resp B/P (MAP) Pulse Ox O2 Delivery O2 Flow Rate FiO2 01/09/21 06:00 82 18 145/50 (81) 98 Ventilator 01/08/21 23:59 98.8 98.8 I & O 01/08/21 01/08/21 01/09/21 15:00 23:00 07:00 Intake Total 500 ml 1362 ml 1050 ml Output Total 345 ml 470 ml 370 ml Balance 155 ml 892 ml 680 ml Physical Exam Physical Exam: GENERAL: [facility] HEENT: Normocephalic, atraumatic. Tongue protruded, ETT /OGT + NECK: Supple though fullness due to body habitus. LUNGS: Decreased breath sounds. No wheezing. HEART: S1, S2. Distant heart sounds. ABDOMEN: Obese. Bowel sounds present. EXTREMITIES: Minimal edema. No cyanosis. NEUROLOGIC: Intubated, sedated. Left IJ clean General: Other Heart: Regular rate Lungs: Crackles Abdomen: Soft Extremities: Other (Trace edema) Labs Labs: Laboratory Tests Test 01/08/21 08:00 01/08/21 11:09 01/08/21 17:47 01/08/21 23:45 Sodium Level 145 mmol/L (136-145) Potassium Level 3.3 mmol/L (3.5-5.1) Chloride Level 107 mmol/L (98-107) Carbon Dioxide Level 32 mmol/L (21-32) Anion Gap 6 (6-14) Blood Urea Nitrogen 12 mg/dL (7-20) Creatinine 1.2 mg/dL (0.6-1.0) Estimated GFR (Cockcroft-Gault) 55.1 Glucose Level 109 mg/dL (70-99) Calcium Level 8.6 mg/dL (8.5-10.1) Magnesium Level 2.2 mg/dL (1.8-2.4) Creatine Kinase 135 U/L (26-192) Glucose (Fingerstick) 112 mg/dL (70-99) 112 mg/dL (70-99) 104 mg/dL (70-99) Test 01/09/21 05:34 01/09/21 05:35 Glucose (Fingerstick) 99 mg/dL (70-99) Sodium Level 144 mmol/L (136-145) Potassium Level 3.2 mmol/L (3.5-5.1) Chloride Level 106 mmol/L (98-107) Carbon Dioxide Level 30 mmol/L (21-32) Anion Gap 8 (6-14) Blood Urea Nitrogen 13 mg/dL (7-20) Creatinine 1.2 mg/dL (0.6-1.0) Estimated GFR (Cockcroft-Gault) 55.1 Glucose Level 94 mg/dL (70-99) Calcium Level 8.8 mg/dL (8.5-10.1) Assessment and Plan Assessmemt and Plan Problems Medical Problems: (1) Acute renal failure Status: Acute (2) Altered mental status Status: Acute (3) Aspiration pneumonia Status: Acute (4) Hyperkalemia Status: Acute (5) Respiratory failure Status: Acute (6) Sepsis Status: Acute Comment Review of Relevant I have reviewed the following items shady (where applicable) has been applied. Medications: Current Medications Medications (Trade) Dose Ordered Sig/Lui Route PRN Reason Start Time Stop Time Status Last Admin Dose Admin Aspirin (Blessing Aspirin) 325 mg DAILY PO 01/08/21 09:00 01/08/21 08:12 Clopidogrel Bisulfate (Plavix) 75 mg DAILYWBKFT PO 01/08/21 08:00 01/08/21 08:13 Losartan Potassium (Cozaar) 100 mg DAILY PO 01/08/21 09:00 01/08/21 08:12 Metoprolol Tartrate (Lopressor) 12.5 mg BID PO 01/08/21 09:00 01/08/21 20:34 Piperacillin Sod/ Tazobactam Sod 3.375 gm/Sodium Chloride 50 ml @ 100 mls/hr Q6HRS IV 01/08/21 12:00 01/09/21 05:35 Daptomycin 600 mg/ Sodium Chloride 50 ml @ 100 mls/hr Q24H IV 01/08/21 16:00 01/08/21 16:14 Isosorbide Mononitrate (Ismo) 20 mg BID92 PO 01/08/21 09:00 01/08/21 14:07 Potassium Chloride/Water 100 ml @ 100 mls/hr Q1H IV 01/08/21 12:00 01/08/21 13:59 DC 01/08/21 13:37 Justifications for Admission Other Justification cardiac arrest DANY CORTES MD Jan 09, 2021 07:58
[2021-01-09 08:14] LABS: BASE EXCESS ABG 6 mmol/L (-3-3); HCO3 ABG 30 mmol/L (21-28); PCO2 ABG 42 mmHg (35-46); PO2 ABG 119 mmHg (65-108); SAT O2 ABG 98 % (92-99)
--- NOTE | 2021-01-09 08:14 | PDOC ---
Infectious Disease Note Subjective: Subjective Patient opens eyes transiently, does not follow commands Having right upper extremity and facial twitching intermittently Remains afebrile Discussed with nursing staff Vital Signs: Vital Signs Vital Signs Date Time Temp Pulse Resp B/P (MAP) Pulse Ox O2 Delivery O2 Flow Rate FiO2 01/09/21 07:55 99 Ventilator 01/09/21 06:00 82 18 145/50 (81) 01/08/21 23:59 98.8 98.8 Physical Exam: PHYSICAL EXAM GENERAL: Intubated, opens eyes transiently, does not follow any commands HEENT: Normocephalic, atraumatic. Tongue protruded, ETT /OGT + NECK: Supple though fullness due to body habitus. LUNGS: Decreased breath sounds. No wheezing. HEART: S1, S2. Distant heart sounds. ABDOMEN: Obese. Bowel sounds present. EXTREMITIES: Minimal edema. No cyanosis. NEUROLOGIC: Intubated, facial and right upper extremity intermittent twitching Left IJ clean Medications: Inpatient Meds: Medications reviewed. Labs: Lab Laboratory Tests Test 01/08/21 11:09 01/08/21 17:47 01/08/21 23:45 01/09/21 05:34 Glucose (Fingerstick) 112 mg/dL (70-99) 112 mg/dL (70-99) 104 mg/dL (70-99) 99 mg/dL (70-99) Test 01/09/21 05:35 Sodium Level 144 mmol/L (136-145) Potassium Level 3.2 mmol/L (3.5-5.1) Chloride Level 106 mmol/L (98-107) Carbon Dioxide Level 30 mmol/L (21-32) Anion Gap 8 (6-14) Blood Urea Nitrogen 13 mg/dL (7-20) Creatinine 1.2 mg/dL (0.6-1.0) Estimated GFR (Cockcroft-Gault) 55.1 Glucose Level 94 mg/dL (70-99) Calcium Level 8.8 mg/dL (8.5-10.1) Objective: Assessment: 1. Fever. 2. Leukocytosis and lactic acidosis. 3. Acute hypoxic respiratory failure. 4. Suspected aspiration pneumonia. Sputum culture positive for mssa 5. Status post cardiopulmonary arrest. 6. Questionable seizures. Encephalopathy 7. Diabetes mellitus 2. 8. Morbid obesity. 9. Obstructive sleep apnea. 10. Coronary artery disease. 11. Chronic kidney disease 12. Hypernatremia and hyperkalemia. 13 Gram-positive bacteremia bacteremia 2 out of 4 bottles present on admission staph epidermidis Plan: Plan of Care 1. Continue daptomycin ,Zosyn , 2. Follow up labs and cultures. Follow-up repeat blood cultures 01/06 negative so far 3. Continue supportive care. 4. Critically ill. 5. Prognosis poor. 6. Team is attempting to discuss final goals of treatment with family Discussed with nursing staff LUDY CRUZ MD Jan 09, 2021 08:14
--- NOTE | 2021-01-09 08:14 | PDOC ---
PULMONARY PROGRESS NOTES DATE: 01/09/21 TIME: 08:14 Subjective PT. remains on vent 40% and PEEP of 5 Remaisn off sedation, unresponsive, has + cough reflex Concern for seizure activity overnight Vitals Vital Signs Date Time Temp Pulse Resp B/P (MAP) Pulse Ox O2 Delivery O2 Flow Rate FiO2 01/09/21 07:55 99 Ventilator 01/09/21 06:00 82 18 145/50 (81) 01/08/21 23:59 98.8 98.8 Comments unable to obtain 2/2 clinical state HEENT: Other (nc at perrl nose clear orally intubated neck no lad no thyromegaly ) Lungs: Crackles Cardiovascular: S1, S2 Abdomen: Soft, Non-tender, Other (no mass obese) Extremities: Other (edema) Skin: Warm Labs Laboratory Tests Test 01/07/21 12:44 01/07/21 17:17 01/07/21 23:40 01/08/21 07:40 Glucose (Fingerstick) 119 mg/dL (70-99) 113 mg/dL (70-99) 122 mg/dL (70-99) O2 Saturation 99 % (92-99) Arterial Blood pH 7.45 (7.35-7.45) Arterial Blood pCO2 at Patient Temp 46 mmHg (35-46) Arterial Blood pO2 at Patient Temp 142 mmHg (65-108) Arterial Blood HCO3 31 mmol/L (21-28) Arterial Blood Base Excess 6 mmol/L (-3-3) FiO2 40%+5 Test 01/08/21 08:00 01/08/21 11:09 01/08/21 17:47 01/08/21 23:45 Sodium Level 145 mmol/L (136-145) Potassium Level 3.3 mmol/L (3.5-5.1) Chloride Level 107 mmol/L (98-107) Carbon Dioxide Level 32 mmol/L (21-32) Anion Gap 6 (6-14) Blood Urea Nitrogen 12 mg/dL (7-20) Creatinine 1.2 mg/dL (0.6-1.0) Estimated GFR (Cockcroft-Gault) 55.1 Glucose Level 109 mg/dL (70-99) Calcium Level 8.6 mg/dL (8.5-10.1) Magnesium Level 2.2 mg/dL (1.8-2.4) Creatine Kinase 135 U/L (26-192) Glucose (Fingerstick) 112 mg/dL (70-99) 112 mg/dL (70-99) 104 mg/dL (70-99) Test 01/09/21 05:34 01/09/21 05:35 Glucose (Fingerstick) 99 mg/dL (70-99) Sodium Level 144 mmol/L (136-145) Potassium Level 3.2 mmol/L (3.5-5.1) Chloride Level 106 mmol/L (98-107) Carbon Dioxide Level 30 mmol/L (21-32) Anion Gap 8 (6-14) Blood Urea Nitrogen 13 mg/dL (7-20) Creatinine 1.2 mg/dL (0.6-1.0) Estimated GFR (Cockcroft-Gault) 55.1 Glucose Level 94 mg/dL (70-99) Calcium Level 8.8 mg/dL (8.5-10.1) Laboratory Tests Test 01/08/21 11:09 01/08/21 17:47 01/08/21 23:45 01/09/21 05:34 Glucose (Fingerstick) 112 mg/dL (70-99) 112 mg/dL (70-99) 104 mg/dL (70-99) 99 mg/dL (70-99) Test 01/09/21 05:35 Sodium Level 144 mmol/L (136-145) Potassium Level 3.2 mmol/L (3.5-5.1) Chloride Level 106 mmol/L (98-107) Carbon Dioxide Level 30 mmol/L (21-32) Anion Gap 8 (6-14) Blood Urea Nitrogen 13 mg/dL (7-20) Creatinine 1.2 mg/dL (0.6-1.0) Estimated GFR (Cockcroft-Gault) 55.1 Glucose Level 94 mg/dL (70-99) Calcium Level 8.8 mg/dL (8.5-10.1) Medications Active Scripts Medications Dose Route/Sig Max Daily Dose Days Date Category Dose Instructions Voltaren (Diclofenac Sodium) 100 Gm Gel..gram. 1 Gm TP QID 30 12/10/20 Reported apply to affected area(s) Oxycodone Hcl 5 Mg Capsule 5 Mg PO PRN Q6HRS PRN 12/08/20 Reported Nystatin 15 Gm Powder 1 [place] TP BID 7 12/08/20 Reported apply to affected area(s) Ondansetron Odt (Ondansetron) 4 Mg Tab.rapdis 1 Tab PO PRN Q8HRS PRN 11/05/20 Reported Reglan (Metoclopramide Hcl) 10 Mg Tablet 1 Tab PO QID 30 11/05/20 Reported before food and bedtime Pantoprazole Sodium (Pantoprazole Sodium) 40 Mg Tablet.dr 40 Mg PO BIDAC 30 06/21/20 Rx Losartan Potassium 100 Mg Tablet 100 Mg PO DAILY 05/03/20 Reported Aspirin 325 Mg Tablet 1 Tab PO DAILY 05/03/20 Reported Metformin Hcl 500 Mg Tablet 500 Mg PO BIDWMEALS 05/03/20 Reported Bumetanide 1 Mg Tablet 1 Mg PO BID 04/02/20 Reported Insulin Aspart 100 Unit/1 Ml Vial 60 Unit SQ TIDAC 04/02/20 Reported novolg flex pen Isosorbide Mononitrate Er (Isosorbide Mononitrate) 120 Mg Tab.er.24h 120 Mg PO DAILY 04/02/20 Reported NITROGLYCERIN SubLingual (Nitroglycerin) 0.4 Mg Tab.subl 0.4 Mg SL PRN Q5MIN PRN 04/02/20 Reported Albuterol Sulfate Neb Soln (Albuterol Sulfate) 2.5 Mg/3 Ml Vial.neb 2.5 Mg NEB Q4-6HRS PRN 04/02/20 Reported Levemir Flextouch (Insulin Detemir) 100 Unit/1 Ml Insuln.pen 60 Unit SQ HS 04/02/20 Reported Hydralazine Hcl 25 Mg Tablet 25 Mg PO BID 04/02/20 Reported Fluticasone Propionate Nasal Rentz (Fluticasone Propionate) 16 Gm Rentz.susp 2 Rentz NS DAILY 06/18/19 Reported Zolpidem Tartrate 5 Mg Tablet 5 Mg PO PRN QHS PRN 06/18/19 Reported Amlodipine Besylate 10 Mg Tablet 10 Mg PO DAILY 06/18/19 Reported Gabapentin 600 Mg Tablet 600 Mg PO BID 06/18/19 Reported Potassium Chloride (Potassium Chloride) 20 Meq Tablet.er 20 Meq PO BID 06/18/19 Reported Clopidogrel (Clopidogrel Bisulfate) 75 Mg Tablet 75 Mg PO DAILYWBKFT 75 11/10/17 Rx Proair Respiclick (Albuterol Sulfate) 90 Mcg Aer.pow.ba 2 Puff IH PRN Q4-6HRS PRN 09/08/16 Reported Cyclobenzaprine Hcl 10 Mg Tablet 1 Tab PO BID PRN 09/08/16 Reported Requip (Ropinirole Hcl) 1 Mg Tablet 1 Tab PO QHS 09/08/16 Reported Crestor (Rosuvastatin Calcium) 20 Mg Tablet 20 Mg PO HS 10/02/15 Reported LAST DOSE: 10/01/15 BEDTIME NEXT DOSE: 10/02/15 BEDTIME Oxybutynin Chloride 5 Mg Tablet 1 Tab PO DAILY 10/02/15 Reported LAST DOSE: 10/02/15 AM NEXT DOSE: 10/03/15 AM Comments CXR 01/07 IMPRESSION: 1. Diffuse interstitial prominence may be seen with interstitial pulmonary edema or atypical infectious/inflammatory process. 2. Support lines and tubes as above. 3. Mild cardiomegaly. Impression . 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 Echo 12/2019 with LVEF 45%, improved on cath on 12/07 Coronary artery disease with recent -- cath 12/07 showed patent long stented proximal to distal LAD. No lesions needing intervention were noted. Echo with LVEF 55 to 60%. Type 2 diabetes. Chronic obstructive pulmonary disease. Morbid obesity. Hypertension. Obstructive sleep apnea. MIRIAM cr trending down Plan . UPDATED 01/09/21 Continue current vent support 40% and PEEP ABG/CXR-- reviewed Follow ID recs-- ABX for aspiration PNA, Follow Cultures,Sputum culture positive for staph aureus and Gram-positive bacteremia bacteremia 2 out of 4 bottles present on admission ID pending remains on zoysn, repeat BC on 01/06 NGTD Follow cardiology recs -- VFIB, CAD, HTN, and Acute on chronic combined diastolic and systolic heart failure. Follow Nephrology recs Follow neurology recs-- anoxic brain injury/not brain /seizures-=- no further workup at this time --poor prognosis Nutritional Support DVT/GI PPX-- Sub Q heparin D/W RN and RT D/W Family in regards to goals or care Updated 01/08 Continue current support Follow neurology input, EEG performed today Dr. Lozano discussed current findings with the family Patient family to decide on possible withdrawing of care UPDATED 01/07/21 Continue current vent support 40% and PEEP ABG/CXR-- reviewed Follow ID recs-- ABX for aspiration PNA, Follow Cultures,Sputum culture positive for staph aureus and Gram-positive bacteremia bacteremia 2 out of 4 bottles present on admission ID pending Follow cardiology recs -- VFIB, CAD, HTN, and Acute on chronic combined diasto lic and systolic heart failure. Follow Nephrology recs -- MIRIAM with improving renal function -- IVF Follow neurology recs-- anoxic brain injury/not brain --poor prognosis Nutritional Support DVT/GI PPX-- Sub Q heparin D/W RN and RT PLAN: 1. cont vent support setting reviewed, abg reviewed, personally decreased rr to 16 not alert enough to do sbt off sedation 2. cont antibiotics. 3. Monitor blood sugars. 4. Neurology consulted for questionable seizures. on anti sz meds 5. elevate hob 6. DVT and GI prophylaxis. 7. follow Cardiology rec, p.r.n. hydralazine for elevated blood pressure. 8. has le edema, le venous doppler no dvt discussed w rn rt RAF CADET MD Jan 09, 2021 08:14
[2021-01-09 08:19] LABS: FIO2 ABG 40
[2021-01-09] MEDS: ASPIRIN CHEWABLE 81 MG TABLET. PO SCH (08:25)
[2021-01-09] MEDS: CLOPIDOGREL BISULFATE 75 MG TABLET PO SCH (08:26)
[2021-01-09] MEDS: METOPROLOL TART IMMED RELEASE 25 MG TABLET. PO SCH ×2 (08:26→20:48)
[2021-01-09] MEDS: LOSARTAN POTASSIUM 50 MG TABLET. PO SCH (08:26)
[2021-01-09] MEDS: hydrALAZINE 25 MG TABLET PO SCH ×2 (08:27→20:49)
[2021-01-09] MEDS: ISOSORBIDE MONONITRATE 20 MG TABLET PO SCH ×2 (08:27→14:04)
[2021-01-09] MEDS: VALPROIC ACID (AS SODIUM SALT) 750 MG in IV DEXTROSE 5% 50 ML IV SCH ×2 (08:28→20:50)
--- NOTE | 2021-01-09 09:10 | PDOC ---
PROGRESS NOTES Date of Service DATE: 01/09/21 TIME: 09:02 Assessment Problems Medical Problems: (1) Acute renal failure Status: Acute (2) Altered mental status Status: Acute (3) Aspiration pneumonia Status: Acute (4) Hyperkalemia Status: Acute (5) Respiratory failure Status: Acute (6) Sepsis Status: Acute Metabolic encephalopathy, only has basic brainstem reflexes PLEDS and burst-suppression on EEG Respiratory failure, aspiration pneumonia, possible sepsis Acute STEMI, coronary artery disease status post stenting, chronic obstructive pulmonary disease, asthma, congestive heart failure, morbid obesity, renal failure, hyperkalemia, severe protein malnutrition, hypertensive urgency, hyperlipidemia, type 2 diabetes, obstructive sleep apnea, restless leg syndrome, peripheral neuropathy Plan Requested DNR decision from family Continue treating medical issues Aggressive treatment of the seizure activity is unlikely to affect outcome and would cloud the examination Overall prognosis is poor, but patient is not brain Discussed with daughterLynn (who answered Lance, son's, phone) Discussed with Dr. Roberson Subjective None Objective Vital Signs Date Time Temp Pulse Resp B/P (MAP) Pulse Ox O2 Delivery O2 Flow Rate FiO2 01/09/21 08:27 76 136/54 01/09/21 07:55 99 Ventilator 01/09/21 06:00 18 01/08/21 23:59 98.8 98.8 Intake and Output 01/09/21 07:00 Intake Total 2912 ml Output Total 1185 ml Balance 1727 ml Intake IV Total 150 ml Tube Feeding 2050 ml Other 712 ml Output Urine Total 1185 ml Gastric Drainage Total 0 ml PHYSICAL EXAM Has been off sedation since 01/05, no response to pain Triggers ventilator Occasional myoclonic movements Pupils unreactive EOMI. roving eye movements CN: no focal findings. Muscle tone: normal. Muscle strength: No response DTR: 1+ Plantar reflex: Silent Gait: not examined Sensory exam: Not cooperative. Cerebellar: Not cooperative Review of Relevant I have reviewed the following items shady (where applicable) has been applied. Labs Laboratory Tests Test 01/07/21 12:44 01/07/21 17:17 01/07/21 23:40 01/08/21 07:40 Glucose (Fingerstick) 119 mg/dL (70-99) 113 mg/dL (70-99) 122 mg/dL (70-99) O2 Saturation 99 % (92-99) Arterial Blood pH 7.45 (7.35-7.45) Arterial Blood pCO2 at Patient Temp 46 mmHg (35-46) Arterial Blood pO2 at Patient Temp 142 mmHg (65-108) Arterial Blood HCO3 31 mmol/L (21-28) Arterial Blood Base Excess 6 mmol/L (-3-3) FiO2 40%+5 Test 01/08/21 08:00 01/08/21 11:09 01/08/21 17:47 01/08/21 23:45 Sodium Level 145 mmol/L (136-145) Potassium Level 3.3 mmol/L (3.5-5.1) Chloride Level 107 mmol/L (98-107) Carbon Dioxide Level 32 mmol/L (21-32) Anion Gap 6 (6-14) Blood Urea Nitrogen 12 mg/dL (7-20) Creatinine 1.2 mg/dL (0.6-1.0) Estimated GFR (Cockcroft-Gault) 55.1 Glucose Level 109 mg/dL (70-99) Calcium Level 8.6 mg/dL (8.5-10.1) Magnesium Level 2.2 mg/dL (1.8-2.4) Creatine Kinase 135 U/L (26-192) Glucose (Fingerstick) 112 mg/dL (70-99) 112 mg/dL (70-99) 104 mg/dL (70-99) Test 01/09/21 05:34 01/09/21 05:35 01/09/21 08:10 Glucose (Fingerstick) 99 mg/dL (70-99) Sodium Level 144 mmol/L (136-145) Potassium Level 3.2 mmol/L (3.5-5.1) Chloride Level 106 mmol/L (98-107) Carbon Dioxide Level 30 mmol/L (21-32) Anion Gap 8 (6-14) Blood Urea Nitrogen 13 mg/dL (7-20) Creatinine 1.2 mg/dL (0.6-1.0) Estimated GFR (Cockcroft-Gault) 55.1 Glucose Level 94 mg/dL (70-99) Calcium Level 8.8 mg/dL (8.5-10.1) O2 Saturation 98 % (92-99) Arterial Blood pH 7.48 (7.35-7.45) Arterial Blood pCO2 at Patient Temp 42 mmHg (35-46) Arterial Blood pO2 at Patient Temp 119 mmHg (65-108) Arterial Blood HCO3 30 mmol/L (21-28) Arterial Blood Base Excess 6 mmol/L (-3-3) FiO2 40 Laboratory Tests Test 01/08/21 11:09 01/08/21 17:47 01/08/21 23:45 01/09/21 05:34 Glucose (Fingerstick) 112 mg/dL (70-99) 112 mg/dL (70-99) 104 mg/dL (70-99) 99 mg/dL (70-99) Test 01/09/21 05:35 01/09/21 08:10 Sodium Level 144 mmol/L (136-145) Potassium Level 3.2 mmol/L (3.5-5.1) Chloride Level 106 mmol/L (98-107) Carbon Dioxide Level 30 mmol/L (21-32) Anion Gap 8 (6-14) Blood Urea Nitrogen 13 mg/dL (7-20) Creatinine 1.2 mg/dL (0.6-1.0) Estimated GFR (Cockcroft-Gault) 55.1 Glucose Level 94 mg/dL (70-99) Calcium Level 8.8 mg/dL (8.5-10.1) O2 Saturation 98 % (92-99) Arterial Blood pH 7.48 (7.35-7.45) Arterial Blood pCO2 at Patient Temp 42 mmHg (35-46) Arterial Blood pO2 at Patient Temp 119 mmHg (65-108) Arterial Blood HCO3 30 mmol/L (21-28) Arterial Blood Base Excess 6 mmol/L (-3-3) FiO2 40 Microbiology 01/06/21 Blood Culture - Preliminary, Resulted NO GROWTH AFTER 2 DAYS 01/05/21 Gram Stain Evaluation - Final, Complete 01/05/21 Respiratory Culture - Final, Complete 01/05/21 Antimicrobic Susceptibility - Final, Complete 01/04/21 Urine Culture - Final, Complete Medications Current Medications Amiodarone HCl 450 mg/Dextrose 259 ml @ 33 mls/hr 1X ONCE IV Last administered on 01/04/21at 11:40; Start 01/04/21 at 11:15; Stop 01/04/21 at 19:05 ; Status DC Midazolam HCl 100 ml @ 1 mls/hr 1X ONCE IV Last administered on 01/04/21at 11:39; Start 01/04/21 at 11:30; Stop 01/05/21 at 09:51; Status DC Sodium Chloride 1,000 ml @ 1,000 mls/hr 1X ONCE IV Last administered on 01/04/21at 12:13; Start 01/04/21 at 11:45; Stop 01/04/21 at 12:44; Status DC Sodium Bicarbonate (Sodium Bicarb Adult 8.4% Syr) 50 meq 1X ONCE IV Last a dministered on 01/04/21at 12:55; Start 01/04/21 at 12:00; Stop 01/04/21 at 12:01; Status DC Dextrose (Dextrose 50%-Water Syringe) 25 gm 1X ONCE IV Last administered on 01/04/21at 12:53; Start 01/04/21 at 12:00; Stop 01/04/21 at 12:01; Status DC Insulin Human Regular (HumuLIN R VIAL) 10 unit 1X ONCE IV Last administered on 01/04/21at 12:52; Start 01/04/21 at 12:00; Stop 01/04/21 at 12:01; Status DC Piperacillin Sod/ Tazobactam Sod 3.375 gm/Sodium Chloride 50 ml @ 100 mls/hr 1X ONCE IV Last administered on 01/04/21at 12:12; Start 01/04/21 at 12:00; Stop 01/04/21 at 12:29; Status DC Succinylcholine Chloride (Anectine) 100 mg 1X ONCE IV Last administered on 01/04/21at 11:03; Start 01/04/21 at 12:45; Stop 01/04/21 at 12:46; Status DC Etomidate (Amidate) 20 mg 1X ONCE IV Last administered on 01/04/21at 11:02; Start 01/04/21 at 12:45; Stop 01/04/21 at 12:46; Status DC Rocuronium [place] (Zemuron) 100 mg 1X ONCE IV ; Start 01/04/21 at 12:45; Stop 01/04/21 at 12:46; Status Cancel Midazolam HCl (Versed) 5 mg 1X ONCE IV Last administered on 01/04/21at 11:30; Start 01/04/21 at 12:45; Stop 01/04/21 at 12:46; Status DC Rocuronium [place] (Zemuron) 100 mg 1X ONCE IV Last administered on 01/04/21at 11:33; Start 01/04/21 at 12:45; Stop 01/04/21 at 12:46; Status DC Ondansetron HCl (Zofran) 4 mg PRN Q8HRS PRN IV NAUSEA/VOMITING; Start 01/04/21 at 13:00; Stop 01/05/21 at 09:48; Status DC Sodium Chloride 1,000 ml @ 100 mls/hr Q10H IV Last administered on 01/05/21at 09:41; Start 01/04/21 at 13:00; Stop 01/05/21 at 12:59; Status DC Ondansetron HCl (Zofran) 4 mg PRN Q6HRS PRN IVP NAUSEA/VOMITING; Start 01/04/21 at 14:00 Famotidine (Pepcid Vial) 20 mg QHS IVP Last administered on 01/08/21at 20:32; Start 01/04/21 at 21:00 Heparin Sodium (Porcine) (Heparin Sodium) 5,000 unit Q8HRS SQ Last administered on 01/09/21at 05:36; Start 01/04/21 at 14:00 Sodium Chloride (Normal Saline Flush) 3 ml QSHIFT PRN IV AFTER MEDS AND BLOOD DRAWS; Start 01/04/21 at 14:00 Bisacodyl (Dulcolax Supp) 10 mg PRN DAILY PRN MT CONSTIPATION; Start 01/04/21 at 14:00 Piperacillin Sod/ Tazobactam Sod (Zosyn Per Pharmacy) 1 each PRN DAILY PRN MC SEE COMMENTS; Start 01/04/21 at 14:00; Stop 01/04/21 at 17:48; Status DC Piperacillin Sod/ Tazobactam Sod 2.25 gm/Sodium Chloride 50 ml @ 100 mls/hr Q6H RS IV ; Start 01/04/21 at 18:00; Stop 01/04/21 at 17:49; Status DC Dextrose (Dextrose 50%-Water Syringe) 25 gm 1X ONCE IV Last administered on 01/04/21at 16:21; Start 01/04/21 at 16:15; Stop 01/04/21 at 16:16; Status DC Meropenem 500 mg/ Sodium Chloride 50 ml @ 100 mls/hr Q8HRS IV ; Start 01/04/21 at 18:00; Status Cancel Piperacillin Sod/ Tazobactam Sod 2.25 gm/Sodium Chloride 50 ml @ 100 mls/hr Q8HRS IV Last administered on 01/08/21at 06:01; Start 01/04/21 at 22:00; Stop 01/08/21 at 07:50; Status DC Linezolid/Dextrose 300 ml @ 300 mls/hr Q12HR IV Last administered on 01/07/21at 21:23; Start 01/04/21 at 21:00; Stop 01/08/21 at 10:41; Status DC Valproic Acid 500 mg/Dextrose 55 ml @ 55 mls/hr Q12HR IV Last administered on 01/05/21at 09:40; Start 01/05/21 at 09:00; Stop 01/05/21 at 17:28; Status DC Valproic Acid 1000 mg/Dextrose 60 ml @ 60 mls/hr 1X ONCE IV Last administered on 01/04/21at 19:30; Start 01/04/21 at 19:30; Stop 01/04/21 at 20:29; Status DC Lorazepam (Ativan Inj) 2 mg PRN Q2HRS PRN IVP ANXIETY / AGITATION Last administered on 01/05/21at 23:30; Start 01/04/21 at 19:30; Stop 01/08/21 at 08:16; Status DC Hydralazine HCl (Apresoline Inj) 10 mg PRN Q6HRS PRN IVP ELEVATED BP, SEE COMMENTS Last administered on 01/09/21at 04:23; Start 01/04/21 at 19:45 Amiodarone HCl 450 mg/Dextrose 259 ml @ 33 mls/hr CONT PRN IV SEE I/O RECORD Last administered on 01/05/21at 11:50; Start 01/04/21 at 20:15; Stop 01/05/21 at 11:50; Status DC Midazolam HCl 100 ml @ 1 mls/hr CONT PRN IV SEE I/O RECORD Last administered on 01/05/21at 02:00; Start 01/05/21 at 02:00; Stop 01/08/21 at 08:16; Status DC Daptomycin 600 mg/ Sodium Chloride 50 ml @ 100 mls/hr Q48H IV Last administered on 01/07/21at 15:40; Start 01/05/21 at 16:00; Stop 01/08/21 at 07:52; Status DC Scopolamine (Transderm-Scop) 1 patch Q3DAYS TD Last administered on 01/08/21at 08:08; Start 01/05/21 at 17:00; Stop 01/08/21 at 08:16; Status DC Valproic Acid 750 mg/Dextrose 57.5 ml @ 57.5 mls/hr Q12HR IV Last administered on 01/09/21at 08:28; Start 01/05/21 at 21:00 Insulin Human Lispro (HumaLOG) 0-5 UNITS TIDWMEALS SQ Last administered on 01/05/21at 18:27; Start 01/05/21 at 18:30; Stop 01/06/21 at 08:42; Status DC Dextrose (Dextrose 50%-Water Syringe) 12.5 gm PRN Q15MIN PRN IV SEE COMMENTS; Start 01/05/21 at 18:15 Amiodarone HCl 450 mg/Dextrose 259 ml @ 0 mls/hr 1X ONCE IV Last administered on 01/06/21at 02:00; Start 01/06/21 at 02:00; Stop 01/06/21 at 02:01; Status DC Insulin Human Lispro (HumaLOG) 0-5 UNITS Q6HRS SQ ; Start 01/06/21 at 12:00 Amiodarone HCl 450 mg/Dextrose 259 ml @ 0 mls/hr 1X ONCE IV Last administered on 01/06/21at 17:05; Start 01/06/21 at 17:00; Stop 01/06/21 at 17:01; Status DC Amiodarone HCl (Cordarone) 400 mg DAILY PO ; Start 01/07/21 at 14:00; Stop 01/07/21 at 13:15; Status DC Multi-Ingred Cream/Lotion/Oil/ Oint (Artificial Tears Eye Ointment) 1 chio PRN Q1HR PRN OU DRY EYE Last administered on 01/07/21at 14:14; Start 01/07/21 at 13:00 Aspirin (Blessing Aspirin) 325 mg DAILY PO Last administered on 01/08/21at 08:12; Start 01/08/21 at 09:00 Clopidogrel Bisulfate (Plavix) 75 mg DAILYWBKFT PO Last administered on 01/09/21 08:26; Start 01/08/21 at 08:00 Hydralazine HCl (Apresoline) 25 mg BID PO Last administered on 01/09/21at 08:27; Start 01/07/21 at 21:00 Metoprolol Succinate (Toprol Xl) 25 mg DAILY PO ; Start 01/08/21 at 09:00; Stop 01/08/21 at 07:44; Status DC Isosorbide Mononitrate (Imdur) 120 mg DAILY PO ; Start 01/08/21 at 09:00; Stop 01/08/21 at 08:16; Status DC Losartan Potassium (Cozaar) 100 mg DAILY PO Last administered on 01/09/21at 08:26; Start 01/08/21 at 09:00 Atorvastatin Calcium (Lipitor) 80 mg QHS PO Last administered on 01/08/21at 20:32; Start 01/07/21 at 21:00 Epinephrine HCl (EPINEPHrine SYRINGE) 2 mg STK-MED ONCE .ROUTE ; Start 01/04/21 at 11:00; Stop 01/07/21 at 17:12; Status DC Amiodarone HCl (Cordarone) 300 mg STK-MED ONCE .ROUTE ; Start 01/04/21 at 11:00; Stop 01/07/21 at 17:12; Status DC Metoprolol Tartrate (Lopressor) 12.5 mg BID PO Last administered on 01/09/21at 08:26; Start 01/08/21 at 09:00 Piperacillin Sod/ Tazobactam Sod 3.375 gm/Sodium Chloride 50 ml @ 100 mls/hr Q6HRS IV Last administered on 01/09/21at 05:35; Start 01/08/21 at 12:00 Daptomycin 600 mg/ Sodium Chloride 50 ml @ 100 mls/hr Q24H IV Last administered on 01/08/21at 16:14; Start 01/08/21 at 16:00 Isosorbide Mononitrate (Ismo) 20 mg BID92 PO Last administered on 01/09/21at 08:27; Start 01/08/21 at 09:00 Aspirin (Aspirin Chewable) 81 mg DAILYWBKFT PO Last administered on 01/09/21at 08:25; Start 01/08/21 at 08:30 Glycopyrrolate (Robinul) 1 mg PRN DAILY PRN IV Secretions; Start 01/08/21 at 08:45 Potassium Chloride/Water 100 ml @ 100 mls/hr Q1H IV Last administered on 12/19 09/09at 13:37; Start 01/08/21 at 12:00; Stop 01/08/21 at 13:59; Status DC Active Scripts Active Promethazine Hcl 12.5 Mg Tablet 12.5 Mg PO PRN Q6HRS PRN 30 Days Metoprolol Succinate ( Xl ) (Metoprolol Succinate) 25 Mg Tab.er.24h 25 Mg PO DAILY 30 Days Pantoprazole Sodium (Pantoprazole Sodium) 40 Mg Tablet.dr 40 Mg PO BIDAC 30 Days Clopidogrel (Clopidogrel Bisulfate) 75 Mg Tablet 75 Mg PO DAILYWBKFT 75 Days Reported Voltaren (Diclofenac Sodium) 100 Gm Gel..gram. 1 Gm TP QID 30 Days apply to affected area(s) Nystatin 15 Gm Powder 1 [place] TP BID 7 Days apply to affected area(s) Ondansetron Odt (Ondansetron) 4 Mg Tab.rapdis 1 Tab PO PRN Q8HRS PRN Reglan (Metoclopramide Hcl) 10 Mg Tablet 1 Tab PO QID 30 Days before food and bedtime Losartan Potassium 100 Mg Tablet 100 Mg PO DAILY Aspirin 325 Mg Tablet 1 Tab PO DAILY Metformin Hcl 500 Mg Tablet 500 Mg PO BIDWMEALS Bumetanide 1 Mg Tablet 1 Mg PO BID Insulin Aspart 100 Unit/1 Ml Vial 60 Unit SQ TIDAC novolg flex pen Isosorbide Mononitrate Er (Isosorbide Mononitrate) 120 Mg Tab.er.24h 120 Mg PO DAILY NITROGLYCERIN SubLingual (Nitroglycerin) 0.4 Mg Tab.subl 0.4 Mg SL PRN Q5MIN PRN Albuterol Sulfate Neb Soln (Albuterol Sulfate) 2.5 Mg/3 Ml Vial.neb 2.5 Mg NEB Q4-6HRS PRN Levemir Flextouch (Insulin Detemir) 100 Unit/1 Ml Insuln.pen 60 Unit SQ HS Hydralazine Hcl 25 Mg Tablet 25 Mg PO BID Fluticasone Propionate Nasal [place] (Fluticasone Propionate) 16 Gm [place].susp 2 [place] NS DAILY Zolpidem Tartrate 5 Mg Tablet 5 Mg PO PRN QHS PRN Amlodipine Besylate 10 Mg Tablet 10 Mg PO DAILY Gabapentin 600 Mg Tablet 600 Mg PO BID Potassium Chloride (Potassium Chloride) 20 Meq Tablet.er 20 Meq PO BID Proair Respiclick (Albuterol Sulfate) 90 Mcg Aer.pow.ba 2 Puff IH PRN Q4-6HRS PRN Cyclobenzaprine Hcl 10 Mg Tablet 1 Tab PO BID PRN Requip (Ropinirole Hcl) 1 Mg Tablet 1 Tab PO QHS Crestor (Rosuvastatin Calcium) 20 Mg Tablet 20 Mg PO HS LAST DOSE: 10/01/15 BEDTIME NEXT DOSE: 10/02/15 BEDTIME Oxybutynin Chloride 5 Mg Tablet 1 Tab PO DAILY LAST DOSE: 10/02/15 AM NEXT DOSE: 10/03/15 AM Vitals/I & O Vital Sign - Last 24 Hours 01/08/21 01/08/21 01/08/21 01/08/21 09:20 09:44 11:07 11:14 Temp 99.2 99.2 Pulse 83 70 Resp 18 16 B/P (MAP) 172/72 (105) 158/62 (94) Pulse Ox 99 99 99 99 O2 Delivery Ventilator Ventilator Ventilator Ventilator 01/08/21 01/08/21 01/08/21 01/08/21 11:56 12:03 13:00 13:03 Pulse 73 72 Resp 18 18 B/P (MAP) 157/68 (97) 151/59 (89) Pulse Ox 99 99 99 O2 Delivery Mechanical Ventilator Ventilator Ventilator Ventilator 01/08/21 01/08/21 01/08/21 01/08/21 14:01 14:07 15:00 15:01 Pulse 74 74 75 Resp 16 16 B/P (MAP) 167/64 (98) 167/64 167/64 (98) Pulse Ox 99 99 100 O2 Delivery Ventilator Ventilator Ventilator 01/08/21 01/08/21 01/08/21 01/08/21 15:53 16:08 16:37 17:00 Temp 98.8 98.8 Pulse 75 77 Resp 16 16 B/P (MAP) 147/57 (87) 157/62 (93) Pulse Ox 99 99 99 O2 Delivery Mechanical Ventilator Ventilator Ventilator Ventilator 01/08/21 01/08/21 01/08/21 01/08/21 18:00 19:00 19:49 20:00 Pulse 76 79 Resp 16 16 B/P (MAP) 166/76 (106) 174/57 (96) Pulse Ox 99 100 100 O2 Delivery Ventilator Ventilator Ventilator Mechanical Ventilator 01/08/21 01/08/21 01/08/21 01/08/21 20:00 20:33 20:34 21:00 Temp 99.1 99.1 Pulse 82 86 86 85 Resp 20 18 B/P (MAP) 151/76 (101) 131/58 131/58 149/70 (96) Pulse Ox 98 99 O2 Delivery Ventilator Ventilator 01/08/21 01/08/21 01/08/21 01/08/21 22:00 23:00 23:24 23:59 Temp 98.8 98.8 Pulse 70 88 72 Resp 18 18 18 B/P (MAP) 158/58 (91) 157/68 (97) 163/73 (103) Pulse Ox 100 99 100 99 O2 Delivery Ventilator Ventilator Ventilator Ventilator 01/08/21 01/09/21 01/09/21 01/09/21 23:59 01:00 01:03 02:00 Pulse 66 72 Resp 16 18 B/P (MAP) 101/45 (63) 164/60 (94) Pulse Ox 100 100 99 O2 Delivery Mechanical Ventilator Ventilator Ventilator Ventilator 01/09/21 01/09/21 01/09/21 01/09/21 03:00 03:45 04:00 04:00 Pulse 72 77 Resp 18 18 B/P (MAP) 96/39 (58) 174/62 (99) Pulse Ox 99 100 100 O2 Delivery Ventilator Ventilator Ventilator Mechanical Ventilator 01/09/21 01/09/21 01/09/21 01/09/21 04:23 05:00 05:22 06:00 Pulse 77 79 82 Resp 18 18 B/P (MAP) 174/62 148/66 (93) 145/50 (81) Pulse Ox 100 100 98 O2 Delivery Ventilator Ventilator Ventilator 01/09/21 01/09/21 01/09/21 01/09/21 07:55 08:26 08:26 08:27 Pulse 76 77 77 B/P (MAP) 136/54 136/54 136/54 Pulse Ox 99 O2 Delivery Ventilator 01/09/21 08:27 Pulse 76 B/P (MAP) 136/54 Intake and Output 01/08/21 01/08/21 01/09/21 15:00 23:00 07:00 Intake Total 500 ml 1362 ml 1050 ml Output Total 345 ml 470 ml 370 ml Balance 155 ml 892 ml 680 ml Justicifation of Admission Dx: Justifications for Admission: Justification of Admission Dx: Yes SWATHI BOOTH MD Jan 09, 2021 09:10
[2021-01-09] MEDS ORDERED: POTASSIUM BICARB 20 MEQ EFFERVESCENT TABLET. PEG ONE (09:30)
--- NOTE | 2021-01-09 12:04 | PDOC ---
Renal-Progress Notes Subjective Notes Notes STILL ON THE VENT History of Present Illness Hx of present illness PROB ANOXIC BRAIN, ? SEIZURES Vitals Vitals Vital Signs Date Time Temp Pulse Resp B/P (MAP) Pulse Ox O2 Delivery O2 Flow Rate FiO2 01/09/21 11:41 99 Ventilator 01/09/21 11:00 74 18 145/68 (93) 01/09/21 08:00 99.1 99.1 Weight Weight [ ] I.O. Intake and Output Intake and Output 01/09/21 07:00 Intake Total 2912 ml Output Total 1185 ml Balance 1727 ml Intake IV Total 150 ml Tube Feeding 2050 ml Other 712 ml Output Urine Total 1185 ml Gastric Drainage Total 0 ml Labs Labs Laboratory Tests Test 01/08/21 17:47 01/08/21 23:45 01/09/21 05:34 01/09/21 05:35 Glucose (Fingerstick) 112 mg/dL (70-99) 104 mg/dL (70-99) 99 mg/dL (70-99) Sodium Level 144 mmol/L (136-145) Potassium Level 3.2 mmol/L (3.5-5.1) Chloride Level 106 mmol/L (98-107) Carbon Dioxide Level 30 mmol/L (21-32) Anion Gap 8 (6-14) Blood Urea Nitrogen 13 mg/dL (7-20) Creatinine 1.2 mg/dL (0.6-1.0) Estimated GFR (Cockcroft-Gault) 55.1 Glucose Level 94 mg/dL (70-99) Calcium Level 8.8 mg/dL (8.5-10.1) Test 01/09/21 08:10 01/09/21 11:34 O2 Saturation 98 % (92-99) Arterial Blood pH 7.48 (7.35-7.45) Arterial Blood pCO2 at Patient Temp 42 mmHg (35-46) Arterial Blood pO2 at Patient Temp 119 mmHg (65-108) Arterial Blood HCO3 30 mmol/L (21-28) Arterial Blood Base Excess 6 mmol/L (-3-3) FiO2 40 Glucose (Fingerstick) 113 mg/dL (70-99) Micro Micro Microbiology 01/06/21 Blood Culture - Preliminary, Resulted NO GROWTH AFTER 2 DAYS 01/05/21 Gram Stain Evaluation - Final, Complete 01/05/21 Respiratory Culture - Final, Complete 01/05/21 Antimicrobic Susceptibility - Final, Complete 01/04/21 Urine Culture - Final, Complete Review of Systems Constitutional: yes: unresponsive Physical Exam General Appearance: no apparent distress, febrile Respiratory: ventilator (Mode:A/C), decreased breath sounds Heart: S1S2 Abdomen: soft Genitourinary: bladder flat Extremities: pulses present, no edema Neurology: other (off sedation. Pupils fixed. not following commands ) Assessment Assessment IMP [id number] OF 2.4 TO 1.2 HYPERNATREMIA-IMPROVED HYPOKALEMIA ACUTE RESP FAILURE PROB PNEUMONIA DM II DIONNE OBESITY BACTEREMIA PLAN ANTIBIOTICS REPLACE K ANTIBIOTICS CONT WATER FLUSHES CONT WITH TF VENT SUPPORT REMAINS CRITICALLY ILL NEUROLOGY EVAL AND TX WILL FOLLOW EFE PRICE MD Jan 09, 2021 12:04
--- NOTE | 2021-01-09 13:19 | PDOC ---
JOSE EDUARDO [facility]CO [employer] FORMER 01/09/21 1319: CARDIO Progress Notes Date and Time Date of Service 01/09/21 Time of Evaluation 1310 Subjective Subjective: Other (intubated) Vitals Vitals Vital Signs Date Time Temp Pulse Resp B/P (MAP) Pulse Ox O2 Delivery O2 Flow Rate FiO2 01/09/21 13:00 72 18 126/74 (91) 99 Ventilator 01/09/21 12:00 98.4 98.4 Weight Weight [ ] Input and Output Intake and Output Intake and Output 01/09/21 07:00 Intake Total 2912 ml Output Total 1185 ml Balance 1727 ml Intake IV Total 150 ml Tube Feeding 2050 ml Other 712 ml Output Urine Total 1185 ml Gastric Drainage Total 0 ml Laboratory Labs Laboratory Tests Test 01/08/21 17:47 01/08/21 23:45 01/09/21 05:34 01/09/21 05:35 Glucose (Fingerstick) 112 mg/dL (70-99) 104 mg/dL (70-99) 99 mg/dL (70-99) Sodium Level 144 mmol/L (136-145) Potassium Level 3.2 mmol/L (3.5-5.1) Chloride Level 106 mmol/L (98-107) Carbon Dioxide Level 30 mmol/L (21-32) Anion Gap 8 (6-14) Blood Urea Nitrogen 13 mg/dL (7-20) Creatinine 1.2 mg/dL (0.6-1.0) Estimated GFR (Cockcroft-Gault) 55.1 Glucose Level 94 mg/dL (70-99) Calcium Level 8.8 mg/dL (8.5-10.1) Test 01/09/21 08:10 01/09/21 11:34 O2 Saturation 98 % (92-99) Arterial Blood pH 7.48 (7.35-7.45) Arterial Blood pCO2 at Patient Temp 42 mmHg (35-46) Arterial Blood pO2 at Patient Temp 119 mmHg (65-108) Arterial Blood HCO3 30 mmol/L (21-28) Arterial Blood Base Excess 6 mmol/L (-3-3) FiO2 40 Glucose (Fingerstick) 113 mg/dL (70-99) Microbiology Micro Microbiology 01/06/21 Blood Culture - Preliminary, Resulted NO GROWTH AFTER 2 DAYS 01/05/21 Gram Stain Evaluation - Final, Complete 01/05/21 Respiratory Culture - Final, Complete 01/05/21 Antimicrobic Susceptibility - Final, Complete 01/04/21 Urine Culture - Final, Complete Review of Systems Constitutional: yes: unresponsive Physical Exam HEENT: Neck Supple W Full Motion LUNGS: Other (mechanical vent ) Heart: RRR (SR) Abdomen: Other (soft ) Extremities: No Edema Neurology: other (off sedation. Pupils fixed. not following commands ) Assessment Assessment 1. Acute hypoxic hypercapnic respiratory failure with probable aspiration PNA. s/p intubation 2. 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 Echo 12/2019 with LVEF 45%. 3. VFIB during difficult intubation; possibly precipitated by hypoxia. One epi sode of 11 beat NSVT noted yesterday on tele. None further 4. Mild troponin elevation; 0.6. most probably type II, demand ischemia secondary to CPR/defibrillation. EKG shows SR with RBBB 5. CAD; cath 12/07 showed patent long stented proximal to distal LAD. No lesions needing intervention were noted. Echo with LVEF 55 to 60%. 6. Hypertension; better controlled 7. Hyperlipidemia; statin therapy 8. Diabetes, II; as per IM 9. MIRIAM; Cr better 10. COPD, DIONNE: home CPAP 11. Hypokalemia; replaced 12. Anoxic encephalopathy, seizures; as per neuro 13. Leukocytosis, lactic acidosis, bacteremia; BC with GPC Recommendations Check Mag and replace as warranted Continue BB therapy Consider antiarrhythmic therapy if any further ventricular arrhythmias noted Continue current secondary prevention measures including ASA/Plavix, statin, and Hydralazine IV PRN Ongoing lung optimization, treatment of PNA Prognosis poor Supportive care Justicifation of Admission Dx: Justifications for Admission: Justification of Admission Dx: Yes ERICA ADEN MD 01/09/212055: CARDIO Progress Notes Assessment Assessment Patient seen and examined. Agree with [facility]OUNT SERVICES ASSOCIATE's assessment and plan. No further episodes of VT/VF recorded. She is currently off amiodarone. CAD status clinically stable. Slight troponin elevation probably demand ischemia. Continue vent management per pulmonary team. JOSE EDUARDO GRECO APRN Jan 09, 2021 13:19 ERICA ADEN MD Jan 09, 2021 20:56
[2021-01-09] MEDS: DAPTOmycin (GENERIC) IVPB 600 MG in IV NORMAL SALINE 50ML 50 ML IV SCH (15:41)
--- NOTE | 2021-01-09 16:38 | NUR ---
SS following up with discharge planning. SS reviewed pt chart and discussed with RN. Pt is currently on the vent at 40%. Pt on IV Daptomycin and IV Zosyn. No sedation. Pt not responsive. Pt Full Code at this time. Physicians discussing goals of care with pt's family. SS will continue to follow for discharge planning.
[2021-01-09] MEDS: FAMOTIDINE 20 MG/2 ML VIAL IVP SCH (20:43)
[2021-01-09] MEDS: ATORVASTATIN CALCIUM 40 MG TABLET. PO SCH (20:49)
[2021-01-10] VITALS (24 sets, daily range): BP systolic 96–189; BP diastolic 46–99
[2021-01-10] MEDS: PIPERACILLIN/TAZOBACTAM 3.375 GM in IV NORMAL SALINE 50ML 50 ML IV SCH ×4 (00:12→17:48)
[2021-01-10] MEDS: INSULIN LISPRO 300 UNITS/3 ML VIAL. SQ SCH ×4 (00:15→17:42)
[2021-01-10] MEDS: hydrALAZINE 20 MG/ML VIAL. IVP PRN ×2 (01:08→13:25)
[2021-01-10] MEDS: HEPARIN for SUB-Q USE 5,000 UNIT/ML VIAL. SQ SCH ×3 (06:20→21:58)
[2021-01-10 06:47] LABS: BASO % 0 % (0-3); EOS # 0.2 x10^3/uL (0.0-0.7); EOS % 3 % (0-3); HEMATOCRIT 29.9 % (36.0-47.0); HEMOGLOBIN 9.5 g/dL (12.0-15.5); LYMPH # 0.7 x10^3/uL (1.0-4.8); LYMPH % 10 % (24-48); MEAN CORPUSCULAR HEMOGLOBIN 25 pg (25-35); MEAN CORPUSCULAR HGB CONC 32 g/dL (31-37); MEAN CORPUSCULAR VOLUME 78 fL (79-100); MONO # 0.8 x10^3/uL (0.0-1.1); MONO % 12 % (0-9); NEUT # 5.2 x10^3/uL (1.8-7.7); NEUT % 75 % (31-73); PLATELET COUNT 186 x10^3/uL (140-400); RED BLOOD COUNT 3.85 x10^6/uL (3.50-5.40); RED CELL DISTRIBUTION WIDTH 15.8 % (11.5-14.5); WHITE BLOOD COUNT 6.9 x10^3/uL (4.0-11.0)
[2021-01-10 06:52] LABS: CALCIUM 8.7 mg/dL (8.5-10.1); CREATININE 1.2 mg/dL (0.6-1.0); GFR 55.1; POTASSIUM 3.1 mmol/L (3.5-5.1)
[2021-01-10] MEDS: CLOPIDOGREL BISULFATE 75 MG TABLET PO SCH (07:19)
[2021-01-10] MEDS: ASPIRIN CHEWABLE 81 MG TABLET. PO SCH (07:19)
[2021-01-10] MEDS ORDERED: POTASSIUM BICARB 20 MEQ EFFERVESCENT TABLET. PO ONE (08:00)
[2021-01-10 08:10] LABS: BASE EXCESS ABG 5 mmol/L (-3-3); HCO3 ABG 29 mmol/L (21-28); PCO2 ABG 40 mmHg (35-46); PO2 ABG 129 mmHg (65-108); SAT O2 ABG 99 % (92-99)
[2021-01-10 08:26] LABS: FIO2 ABG 40% +5
[2021-01-10] MEDS: VALPROIC ACID (AS SODIUM SALT) 750 MG in IV DEXTROSE 5% 50 ML IV SCH ×2 (08:40→21:07)
[2021-01-10] MEDS: LOSARTAN POTASSIUM 50 MG TABLET. PO SCH (08:41)
[2021-01-10] MEDS: hydrALAZINE 25 MG TABLET PO SCH ×2 (08:41→21:07)
[2021-01-10] MEDS: ISOSORBIDE MONONITRATE 20 MG TABLET PO SCH ×2 (08:41→13:25)
[2021-01-10] MEDS: METOPROLOL TART IMMED RELEASE 25 MG TABLET. PO SCH ×2 (08:42→21:08)
[2021-01-10] MEDS: GLYCOPYRROLATE 1 MG/5 ML VIAL. IV PRN (08:43)
--- NOTE | 2021-01-10 08:57 | PDOC ---
Infectious Disease Note Subjective: Subjective Intubated and sedated Remains on FiO2 40% PEEP of 5 Intermittent twitching of face and right upper extremity Discussed with nursing staff Vital Signs: Vital Signs Vital Signs Date Time Temp Pulse Resp B/P (MAP) Pulse Ox O2 Delivery O2 Flow Rate FiO2 01/10/21 08:42 77 145/99 01/10/21 08:00 99.1 18 95 Ventilator 99.1 Physical Exam: PHYSICAL EXAM GENERAL: Intubated, opens eyes transiently, does not follow any commands HEENT: Normocephalic, atraumatic. Tongue protruded, ETT /OGT + NECK: Supple though fullness due to body habitus. LUNGS: Decreased breath sounds. No wheezing. HEART: S1, S2. Distant heart sounds. ABDOMEN: Obese. Bowel sounds present. EXTREMITIES: Minimal edema. No cyanosis. NEUROLOGIC: Intubated, facial and right upper extremity intermittent twitching Left IJ clean Medications: Inpatient Meds: Medications reviewed. Labs: Lab Laboratory Tests Test 01/09/21 11:34 01/09/21 17:21 01/10/21 00:14 01/10/21 06:15 Glucose (Fingerstick) 113 mg/dL (70-99) 116 mg/dL (70-99) 125 mg/dL (70-99) White Blood Count 6.9 x10^3/uL (4.0-11.0) Red Blood Count 3.85 x10^6/uL (3.50-5.40) Hemoglobin 9.5 g/dL (12.0-15.5) Hematocrit 29.9 % (36.0-47.0) Mean Corpuscular Volume 78 fL (79-100) Mean Corpuscular Hemoglobin 25 pg (25-35) Mean Corpuscular Hemoglobin Concent 32 g/dL (31-37) Red Cell Distribution Width 15.8 % (11.5-14.5) Platelet Count 186 x10^3/uL (140-400) Neutrophils (%) (Auto) 75 % (31-73) Lymphocytes (%) (Auto) 10 % (24-48) Monocytes (%) (Auto) 12 % (0-9) Eosinophils (%) (Auto) 3 % (0-3) Basophils (%) (Auto) 0 % (0-3) Neutrophils # (Auto) 5.2 x10^3/uL (1.8-7.7) Lymphocytes # (Auto) 0.7 x10^3/uL (1.0-4.8) Monocytes # (Auto) 0.8 x10^3/uL (0.0-1.1) Eosinophils # (Auto) 0.2 x10^3/uL (0.0-0.7) Basophils # (Auto) 0.0 x10^3/uL (0.0-0.2) Sodium Level 145 mmol/L (136-145) Potassium Level 3.1 mmol/L (3.5-5.1) Chloride Level 107 mmol/L (98-107) Carbon Dioxide Level 29 mmol/L (21-32) Anion Gap 9 (6-14) Blood Urea Nitrogen 14 mg/dL (7-20) Creatinine 1.2 mg/dL (0.6-1.0) Estimated GFR (Cockcroft-Gault) 55.1 Glucose Level 117 mg/dL (70-99) Calcium Level 8.7 mg/dL (8.5-10.1) Test 01/10/21 06:16 01/10/21 08:00 Glucose (Fingerstick) 122 mg/dL (70-99) O2 Saturation 99 % (92-99) Arterial Blood pH 7.47 (7.35-7.45) Arterial Blood pCO2 at Patient Temp 40 mmHg (35-46) Arterial Blood pO2 at Patient Temp 129 mmHg (65-108) Arterial Blood HCO3 29 mmol/L (21-28) Arterial Blood Base Excess 5 mmol/L (-3-3) FiO2 40% +5 Objective: Assessment: 1. Fever. Resolved 2. Leukocytosis and lactic acidosis. Proving 3. Acute hypoxic respiratory failure. Status post intubation 4. Suspected aspiration pneumonia. Sputum culture positive for mssa 5. Status post cardiopulmonary arrest. 6. Questionable seizures. Encephalopathy 7. Diabetes mellitus 2. 8. Morbid obesity. 9. Obstructive sleep apnea. 10. Coronary artery disease. 11. Chronic kidney disease 12. Hypernatremia and hyperkalemia. 13 Gram-positive bacteremia bacteremia 2 out of 4 bottles present on admission staph epidermidis Plan: Plan of Care 1. Continue daptomycin ,Zosyn , 2. Follow up labs and cultures. Follow-up repeat blood cultures 01/06 negative so far 3. Continue supportive care. 4. Critically ill. 5. Prognosis poor. 6. Team is attempting to discuss final goals of treatment with family Discussed with nursing staff LUDY CRUZ MD Jan 10, 2021 08:57
--- NOTE | 2021-01-10 09:05 | PDOC ---
PULMONARY PROGRESS NOTES DATE: 01/10/21 TIME: 09:05 Subjective PT. remains on vent 40% and PEEP of 5 Remains off sedation, unresponsive, has brain stem reflexes no overnight concerns Vitals Vital Signs Date Time Temp Pulse Resp B/P (MAP) Pulse Ox O2 Delivery O2 Flow Rate FiO2 01/10/21 08:42 77 145/99 01/10/21 08:00 99.1 18 95 Ventilator 99.1 Comments unable to obtain 2/2 clinical state HEENT: Other (nc at perrl nose clear orally intubated neck no lad no thyromegaly ) Lungs: Crackles Cardiovascular: S1, S2 Abdomen: Soft, Non-tender, Other (no mass obese) Extremities: Other (edema) Skin: Warm Labs Laboratory Tests Test 01/08/21 11:09 01/08/21 17:47 01/08/21 23:45 01/09/21 05:34 Glucose (Fingerstick) 112 mg/dL (70-99) 112 mg/dL (70-99) 104 mg/dL (70-99) 99 mg/dL (70-99) Test 01/09/21 05:35 01/09/21 08:10 01/09/21 11:34 01/09/21 17:21 Sodium Level 144 mmol/L (136-145) Potassium Level 3.2 mmol/L (3.5-5.1) Chloride Level 106 mmol/L (98-107) Carbon Dioxide Level 30 mmol/L (21-32) Anion Gap 8 (6-14) Blood Urea Nitrogen 13 mg/dL (7-20) Creatinine 1.2 mg/dL (0.6-1.0) Estimated GFR (Cockcroft-Gault) 55.1 Glucose Level 94 mg/dL (70-99) Calcium Level 8.8 mg/dL (8.5-10.1) Magnesium Level 2.4 mg/dL (1.8-2.4) O2 Saturation 98 % (92-99) Arterial Blood pH 7.48 (7.35-7.45) Arterial Blood pCO2 at Patient Temp 42 mmHg (35-46) Arterial Blood pO2 at Patient Temp 119 mmHg (65-108) Arterial Blood HCO3 30 mmol/L (21-28) Arterial Blood Base Excess 6 mmol/L (-3-3) FiO2 40 Glucose (Fingerstick) 113 mg/dL (70-99) 116 mg/dL (70-99) Test 01/10/21 00:14 01/10/21 06:15 01/10/21 06:16 01/10/21 08:00 Glucose (Fingerstick) 125 mg/dL (70-99) 122 mg/dL (70-99) White Blood Count 6.9 x10^3/uL (4.0-11.0) Red Blood Count 3.85 x10^6/uL (3.50-5.40) Hemoglobin 9.5 g/dL (12.0-15.5) Hematocrit 29.9 % (36.0-47.0) Mean Corpuscular Volume 78 fL (79-100) Mean Corpuscular Hemoglobin 25 pg (25-35) Mean Corpuscular Hemoglobin Concent 32 g/dL (31-37) Red Cell Distribution Width 15.8 % (11.5-14.5) Platelet Count 186 x10^3/uL (140-400) Neutrophils (%) (Auto) 75 % (31-73) Lymphocytes (%) (Auto) 10 % (24-48) Monocytes (%) (Auto) 12 % (0-9) Eosinophils (%) (Auto) 3 % (0-3) Basophils (%) (Auto) 0 % (0-3) Neutrophils # (Auto) 5.2 x10^3/uL (1.8-7.7) Lymphocytes # (Auto) 0.7 x10^3/uL (1.0-4.8) Monocytes # (Auto) 0.8 x10^3/uL (0.0-1.1) Eosinophils # (Auto) 0.2 x10^3/uL (0.0-0.7) Basophils # (Auto) 0.0 x10^3/uL (0.0-0.2) Sodium Level 145 mmol/L (136-145) Potassium Level 3.1 mmol/L (3.5-5.1) Chloride Level 107 mmol/L (98-107) Carbon Dioxide Level 29 mmol/L (21-32) Anion Gap 9 (6-14) Blood Urea Nitrogen 14 mg/dL (7-20) Creatinine 1.2 mg/dL (0.6-1.0) Estimated GFR (Cockcroft-Gault) 55.1 Glucose Level 117 mg/dL (70-99) Calcium Level 8.7 mg/dL (8.5-10.1) O2 Saturation 99 % (92-99) Arterial Blood pH 7.47 (7.35-7.45) Arterial Blood pCO2 at Patient Temp 40 mmHg (35-46) Arterial Blood pO2 at Patient Temp 129 mmHg (65-108) Arterial Blood HCO3 29 mmol/L (21-28) Arterial Blood Base Excess 5 mmol/L (-3-3) FiO2 40% +5 Laboratory Tests Test 01/09/21 11:34 01/09/21 17:21 01/10/21 00:14 01/10/21 06:15 Glucose (Fingerstick) 113 mg/dL (70-99) 116 mg/dL (70-99) 125 mg/dL (70-99) White Blood Count 6.9 x10^3/uL (4.0-11.0) Red Blood Count 3.85 x10^6/uL (3.50-5.40) Hemoglobin 9.5 g/dL (12.0-15.5) Hematocrit 29.9 % (36.0-47.0) Mean Corpuscular Volume 78 fL (79-100) Mean Corpuscular Hemoglobin 25 pg (25-35) Mean Corpuscular Hemoglobin Concent 32 g/dL (31-37) Red Cell Distribution Width 15.8 % (11.5-14.5) Platelet Count 186 x10^3/uL (140-400) Neutrophils (%) (Auto) 75 % (31-73) Lymphocytes (%) (Auto) 10 % (24-48) Monocytes (%) (Auto) 12 % (0-9) Eosinophils (%) (Auto) 3 % (0-3) Basophils (%) (Auto) 0 % (0-3) Neutrophils # (Auto) 5.2 x10^3/uL (1.8-7.7) Lymphocytes # (Auto) 0.7 x10^3/uL (1.0-4.8) Monocytes # (Auto) 0.8 x10^3/uL (0.0-1.1) Eosinophils # (Auto) 0.2 x10^3/uL (0.0-0.7) Basophils # (Auto) 0.0 x10^3/uL (0.0-0.2) Sodium Level 145 mmol/L (136-145) Potassium Level 3.1 mmol/L (3.5-5.1) Chloride Level 107 mmol/L (98-107) Carbon Dioxide Level 29 mmol/L (21-32) Anion Gap 9 (6-14) Blood Urea Nitrogen 14 mg/dL (7-20) Creatinine 1.2 mg/dL (0.6-1.0) Estimated GFR (Cockcroft-Gault) 55.1 Glucose Level 117 mg/dL (70-99) Calcium Level 8.7 mg/dL (8.5-10.1) Test 01/10/21 06:16 01/10/21 08:00 Glucose (Fingerstick) 122 mg/dL (70-99) O2 Saturation 99 % (92-99) Arterial Blood pH 7.47 (7.35-7.45) Arterial Blood pCO2 at Patient Temp 40 mmHg (35-46) Arterial Blood pO2 at Patient Temp 129 mmHg (65-108) Arterial Blood HCO3 29 mmol/L (21-28) Arterial Blood Base Excess 5 mmol/L (-3-3) FiO2 40% +5 Medications Active Scripts Medications Dose Route/Sig Max Daily Dose Days Date Category Dose Instructions Voltaren (Diclofenac Sodium) 100 Gm Gel..gram. 1 Gm TP QID 30 12/10/20 Reported apply to affected area(s) Oxycodone Hcl 5 Mg Capsule 5 Mg PO PRN Q6HRS PRN 12/08/20 Reported Nystatin 15 Gm Powder 1 [place] TP BID 7 12/08/20 Reported apply to affected area(s) Ondansetron Odt (Ondansetron) 4 Mg Tab.rapdis 1 Tab PO PRN Q8HRS PRN 11/05/20 Reported Reglan (Metoclopramide Hcl) 10 Mg Tablet 1 Tab PO QID 30 11/05/20 Reported before food and bedtime Pantoprazole Sodium (Pantoprazole Sodium) 40 Mg Tablet.dr 40 Mg PO BIDAC 30 06/21/20 Rx Losartan Potassium 100 Mg Tablet 100 Mg PO DAILY 05/03/20 Reported Aspirin 325 Mg Tablet 1 Tab PO DAILY 05/03/20 Reported Metformin Hcl 500 Mg Tablet 500 Mg PO BIDWMEALS 05/03/20 Reported Bumetanide 1 Mg Tablet 1 Mg PO BID 04/02/20 Reported Insulin Aspart 100 Unit/1 Ml Vial 60 Unit SQ TIDAC 04/02/20 Reported novolg flex pen Isosorbide Mononitrate Er (Isosorbide Mononitrate) 120 Mg Tab.er.24h 120 Mg PO DAILY 04/02/20 Reported NITROGLYCERIN SubLingual (Nitroglycerin) 0.4 Mg Tab.subl 0.4 Mg SL PRN Q5MIN PRN 04/02/20 Reported Albuterol Sulfate Neb Soln (Albuterol Sulfate) 2.5 Mg/3 Ml Vial.neb 2.5 Mg NEB Q4-6HRS PRN 04/02/20 Reported Levemir Flextouch (Insulin Detemir) 100 Unit/1 Ml Insuln.pen 60 Unit SQ HS 04/02/20 Reported Hydralazine Hcl 25 Mg Tablet 25 Mg PO BID 04/02/20 Reported Fluticasone Propionate Nasal [place] (Fluticasone Propionate) 16 Gm [place].susp 2 [place] NS DAILY 06/18/19 Reported Zolpidem Tartrate 5 Mg Tablet 5 Mg PO PRN QHS PRN 06/18/19 Reported Amlodipine Besylate 10 Mg Tablet 10 Mg PO DAILY 06/18/19 Reported Gabapentin 600 Mg Tablet 600 Mg PO BID 06/18/19 Reported Potassium Chloride (Potassium Chloride) 20 Meq Tablet.er 20 Meq PO BID 06/18/19 Reported Clopidogrel (Clopidogrel Bisulfate) 75 Mg Tablet 75 Mg PO DAILYWBKFT 75 11/10/17 Rx Proair Respiclick (Albuterol Sulfate) 90 Mcg Aer.pow.ba 2 Puff IH PRN Q4-6HRS PRN 09/08/16 Reported Cyclobenzaprine Hcl 10 Mg Tablet 1 Tab PO BID PRN 09/08/16 Reported Requip (Ropinirole Hcl) 1 Mg Tablet 1 Tab PO QHS 09/08/16 Reported Crestor (Rosuvastatin Calcium) 20 Mg Tablet 20 Mg PO HS 10/02/15 Reported LAST DOSE: 10/01/15 BEDTIME NEXT DOSE: 10/02/15 BEDTIME Oxybutynin Chloride 5 Mg Tablet 1 Tab PO DAILY 10/02/15 Reported LAST DOSE: 10/02/15 AM NEXT DOSE: 10/03/15 AM Comments CXR 01/10/21 IMPRESSION: Resolution of left pleural effusion. Unchanged bilateral opacities. CXR 01/07 IMPRESSION: 1. Diffuse interstitial prominence may be seen with interstitial pulmonary edema or atypical infectious/inflammatory process. 2. Support lines and tubes as above. 3. Mild cardiomegaly. Impression . 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 Echo 12/2019 with LVEF 45%, improved on cath on 12/07 Coronary artery disease with recent -- cath 12/07 showed patent long stented pro ximal to distal LAD. No lesions needing intervention were noted. Echo with LVEF 55 to 60%. Type 2 diabetes. Chronic obstructive pulmonary disease. Morbid obesity. Hypertension. Obstructive sleep apnea. MIRIAM cr trending down Plan . UPDATED 01/10/21 Continue current vent support 40% and PEEP of 5 ABG/CXR-- reviewed -- will give X1 dose of lasix today Follow ID recs-- ABX for aspiration PNA, Follow Cultures,Sputum culture positive for staph aureus-- / BC NGTD Follow cardiology recs-- Follow Nephrology recs Follow neurology recs--S/P EEG, pt. 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 Follow Nephrology recs Follow neurology recs-- anoxic brain injury/not brain /seizures-=- no further workup at this time --poor prognosis Nutritional Support DVT/GI PPX-- Sub Q heparin D/W RN and RT Dr.riffle Marroquin/[facility] Family in regards to goals or care Updated 01/08 Continue current support Follow neurology input, EEG performed today Dr. 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 Follow Nephrology recs -- MIRIAM with improving renal function -- IVF Follow neurology recs-- anoxic brain injury/not brain --poor prognosis Nutritional Support DVT/GI PPX-- Sub Q heparin D/W RN and RT PLAN: 1. cont vent support setting reviewed, abg reviewed, personally decreased rr to 16 not alert enough to do sbt off sedation 2. cont antibiotics. 3. Monitor blood sugars. 4. Neurology consulted for questionable seizures. on anti sz meds 5. elevate hob 6. DVT and GI prophylaxis. 7. follow Cardiology rec, p.r.n. hydralazine for elevated blood pressure. 8. has le edema, le venous doppler no dvt discussed w rn rt RAF CADET MD Jan 10, 2021 09:05
--- NOTE | 2021-01-10 09:19 | RAD ---
EXAM: XR CHEST 1V 01/10/2021 7:45 AM CLINICAL INDICATION: Pneumonia COMPARISON: Chest radiograph 01/08/2021 TECHNIQUE: AP view of the chest FINDINGS: The endotracheal tube terminates 4.7 cm above the sukh. A left internal jugular central venous catheter tip checks over the upper superior vena cava. The cardiac silhouette is stable. There are unchanged bilateral opacities. A left pleural effusion has resolved. No pneumothorax. IMPRESSION: Resolution of left pleural effusion. Unchanged bilateral opacities. Electronically signed by: Julieta Riojas MD (01/10/2021 9:17 AM) [id number]
--- NOTE | 2021-01-10 10:35 | PDOC ---
[employer] PROGRESS NOTE Date of Service DOS: DATE: 01/10/21 TIME: 10:34 Chief Complaint Chief Complaint Assessment/Plan Respiratory failure SUSPECT aspiration pneumonia Mild prominent interstitial lung markings likely mild congestive changes or interstitial infiltrates Ventricular fib arrest - on amio CAD Extensive stenting of the LAD with the most significant area of restenosis being a 35% lesion in the mid vessel. Mild disease in the right coronary artery. PCI to the LAD and ramus on 10/2017. Cardiac cath on 12/12/2020 with no new disease. Acute renal failure/ MIRIAM Hyperkalemia Aspiration pneumonia Altered mental status Sepsis MORBID OBESITY Severe protein malnutrition HTN urgency - Cont meds, prn IV hydralazine Hyperlipidemia - on statin DM2 - BG controlled. Will cut her lantus given NPO status. A1c 5.6 CKD3 - with MIRIAM, above DIONNE wtih CPAP - asked to bring home BIPAP in if she is extubated COPD - on chronic home O2, will continue current meds Chronic systolic CHF (reduced EF to 42% 12/2019) - cont meds. RLS Peripheral neuropathy ICU BED Consult cardiology Nephrology consult ID CONSULT PULM CONSULT VENT SUPPORT DVT PROPHYLAXIS EMPERIC IV ANTIBIOTICS, Zosyn pending id consult Neurology consult History of Present Illness History of Present Illness Ms Castro is a 60 year old female w/ PMHx Asthma, CAD s/p stenting x6, CHF, COPD, Diabetes-Type II, High Cholesterol, Hypertension, neuropathy, morbid obesity, RLS, insomnia who presented to ER after she was brought here by EMS from home after she was found unresponsive in her bed by her family. Patient was last known normal was 9 AM on 01/03/2021. family tried to call her but could not get a hold of her so they show up to her house, found her unresponsive in her bed. Per family, patient had a CPAP machine on but the mask slid off her face, there was lot of mucus and material around her face and on her neck area. Patient was responsive to painful stimuli but was very confused, did not follow command. EMS were called, they found her in respiratory distress, GCS of 7-8, they bagged her and brought her here. Upon arrival to room, patient was unresponsive to verbal, severe respiratory distress, need emergent intubation. During the difficult intubation patient became bradycardic and CODE BLUE was initiated. Patient subsequently went into ventricular fibrillation, underwent shock therapy and was initiated on intravenous amiodarone infusion and admitted to ICU. She has been admitted to [facility] x2 for intractable nausea and vomiting and PMC once has had this as well as intense pruritis for 6 months. Was seen and treated for same in November, underwent cardiac cath and GI consultation at the time, was discharged home. Her family stated that patient was seen here 2 days prior for epigastric abdominal pain. It was recommended that she need to stay in the hospital however patient did not want to stay in the hospital so she went home. AMA. 01/05: No acute events overnight. Patient seen and examined bedside. Patient remains intubated. Without sedation. Vent settings at 18/450/40/5. Patient is not responding to painful stimuli at this time. There is a lot of secretions. Currently not on any vasopressors 01/06: No acute events overnight. Patient withdraws to pain. Still intubated with vent settings at 16/450/40/5. Not on any sedation at this time. Patient's chart, labs, images were reviewed and discussed with RN 01/07: No overnight events. Afebrile. On vent with no sedation for 48 hours FiO2 40% PEEP of 5. Not requiring vasopressors. Not making meaningful eye contact or meaningful movement. Minimal reflexes. Breathing over the vent. Discussed with son, Lance overall poor prognosis given what is likely anoxic encephalopathy. He wants to discuss with his aunt Liss and sister Camille future goals of care. 01/08: No events. Afebrile. Still with no meaningful activity no sedation on vent FiO2 40% PEEP of 5, ABG 7.45/46/142. No BM. Adequate UOP. No residuals on feeds. EEG interpreted by neurology as abnormal because of a severe diffuse disturbance of cerebral activity, consistent with a very poor prognosis from anoxic encephalopathy. 01/09: Overnight ventilated no significant activity he still off sedation. K3.2. Vent FiO2 40% PEEP of 5. Chest radiograph unchanged from prior. Right hand with new twitching, concerning for seizure activity, d/w neurology. D/w sons goals of care and grim neurologic prognosis. No overnight events. Afebrile, K3.1. ABG 7.4 7/40/129 on 40% FiO2. CXR stable. Still with right hand tremor. Advance care planning total time spent [id number] with patient's family 17 minutes in discussion with goals of care, comfort care, end-of-life care, pain management, CODE STATUS. Vitals/I&O Vitals/I&O: Vital Signs Date Time Temp Pulse Resp B/P (MAP) Pulse Ox O2 Delivery O2 Flow Rate FiO2 01/10/21 09:08 100 Ventilator 01/10/21 09:00 77 18 140/76 (97) 01/10/21 08:00 99.1 99.1 I & O 01/09/21 01/09/21 01/10/21 15:00 23:00 07:00 Intake Total 570 ml 1752.5 ml 1465 ml Output Total 580 ml 535 ml 440 ml Balance -10 ml 1217.5 ml 1025 ml Physical Exam Physical Exam: GENERAL: Intubated, opens eyes transiently, does not follow any commands HEENT: Normocephalic, atraumatic. Tongue protruded, ETT /OGT + NECK: Supple though fullness due to body habitus. LUNGS: Decreased breath sounds. No wheezing. HEART: S1, S2. Distant heart sounds. ABDOMEN: Obese. Bowel sounds present. EXTREMITIES: Minimal edema. No cyanosis. NEUROLOGIC: Intubated, facial and right upper extremity intermittent twitching Left IJ clean General: Other Heart: Regular rate Lungs: Crackles Abdomen: Soft Extremities: Other (Trace edema) Labs Labs: Laboratory Tests Test 01/09/21 11:34 01/09/21 17:21 01/10/21 00:14 01/10/21 06:15 Glucose (Fingerstick) 113 mg/dL (70-99) 116 mg/dL (70-99) 125 mg/dL (70-99) White Blood Count 6.9 x10^3/uL (4.0-11.0) Red Blood Count 3.85 x10^6/uL (3.50-5.40) Hemoglobin 9.5 g/dL (12.0-15.5) Hematocrit 29.9 % (36.0-47.0) Mean Corpuscular Volume 78 fL (79-100) Mean Corpuscular Hemoglobin 25 pg (25-35) Mean Corpuscular Hemoglobin Concent 32 g/dL (31-37) Red Cell Distribution Width 15.8 % (11.5-14.5) Platelet Count 186 x10^3/uL (140-400) Neutrophils (%) (Auto) 75 % (31-73) Lymphocytes (%) (Auto) 10 % (24-48) Monocytes (%) (Auto) 12 % (0-9) Eosinophils (%) (Auto) 3 % (0-3) Basophils (%) (Auto) 0 % (0-3) Neutrophils # (Auto) 5.2 x10^3/uL (1.8-7.7) Lymphocytes # (Auto) 0.7 x10^3/uL (1.0-4.8) Monocytes # (Auto) 0.8 x10^3/uL (0.0-1.1) Eosinophils # (Auto) 0.2 x10^3/uL (0.0-0.7) Basophils # (Auto) 0.0 x10^3/uL (0.0-0.2) Sodium Level 145 mmol/L (136-145) Potassium Level 3.1 mmol/L (3.5-5.1) Chloride Level 107 mmol/L (98-107) Carbon Dioxide Level 29 mmol/L (21-32) Anion Gap 9 (6-14) Blood Urea Nitrogen 14 mg/dL (7-20) Creatinine 1.2 mg/dL (0.6-1.0) Estimated GFR (Cockcroft-Gault) 55.1 Glucose Level 117 mg/dL (70-99) Calcium Level 8.7 mg/dL (8.5-10.1) Test 01/10/21 06:16 01/10/21 08:00 Glucose (Fingerstick) 122 mg/dL (70-99) O2 Saturation 99 % (92-99) Arterial Blood pH 7.47 (7.35-7.45) Arterial Blood pCO2 at Patient Temp 40 mmHg (35-46) Arterial Blood pO2 at Patient Temp 129 mmHg (65-108) Arterial Blood HCO3 29 mmol/L (21-28) Arterial Blood Base Excess 5 mmol/L (-3-3) FiO2 40% +5 Assessment and Plan Assessmemt and Plan Problems Medical Problems: (1) Acute renal failure Status: Acute (2) Altered mental status Status: Acute (3) Aspiration pneumonia Status: Acute (4) Hyperkalemia Status: Acute (5) Respiratory failure Status: Acute (6) Sepsis Status: Acute Comment Review of Relevant I have reviewed the following items shady (where applicable) has been applied. Medications: Current Medications Medications (Trade) Dose Ordered Sig/Lui Route PRN Reason Start Time Stop Time Status Last Admin Dose Admin Potassium Bicarbonate (Potassium Effervescent Tablet) 40 meq 1X ONCE PO 01/10/21 08:00 01/10/21 08:01 DC 01/10/21 07:19 Justifications for Admission Other Justification cardiac arrest DANY CORTES MD Jan 10, 2021 10:35
--- NOTE | 2021-01-10 11:14 | PDOC ---
Renal-Progress Notes Subjective Notes Notes STILL ON THE VENT History of Present Illness Hx of present illness OFF SEDATION AND NOT IMPROVING Vitals Vitals Vital Signs Date Time Temp Pulse Resp B/P (MAP) Pulse Ox O2 Delivery O2 Flow Rate FiO2 01/10/21 11:04 100 Ventilator 01/10/21 09:00 77 18 140/76 (97) 01/10/21 08:00 99.1 99.1 Weight Weight [ ] I.O. Intake and Output Intake and Output 01/10/21 07:00 Intake Total 3787.5 ml Output Total 1555 ml Balance 2232.5 ml Intake IV Total 417.5 ml Tube Feeding 2290 ml Other 1080 ml Output Urine Total 1555 ml Gastric Drainage Total 0 ml # Bowel Movements 2 Labs Labs Laboratory Tests Test 01/09/21 11:34 01/09/21 17:21 01/10/21 00:14 01/10/21 06:15 Glucose (Fingerstick) 113 mg/dL (70-99) 116 mg/dL (70-99) 125 mg/dL (70-99) White Blood Count 6.9 x10^3/uL (4.0-11.0) Red Blood Count 3.85 x10^6/uL (3.50-5.40) Hemoglobin 9.5 g/dL (12.0-15.5) Hematocrit 29.9 % (36.0-47.0) Mean Corpuscular Volume 78 fL (79-100) Mean Corpuscular Hemoglobin 25 pg (25-35) Mean Corpuscular Hemoglobin Concent 32 g/dL (31-37) Red Cell Distribution Width 15.8 % (11.5-14.5) Platelet Count 186 x10^3/uL (140-400) Neutrophils (%) (Auto) 75 % (31-73) Lymphocytes (%) (Auto) 10 % (24-48) Monocytes (%) (Auto) 12 % (0-9) Eosinophils (%) (Auto) 3 % (0-3) Basophils (%) (Auto) 0 % (0-3) Neutrophils # (Auto) 5.2 x10^3/uL (1.8-7.7) Lymphocytes # (Auto) 0.7 x10^3/uL (1.0-4.8) Monocytes # (Auto) 0.8 x10^3/uL (0.0-1.1) Eosinophils # (Auto) 0.2 x10^3/uL (0.0-0.7) Basophils # (Auto) 0.0 x10^3/uL (0.0-0.2) Sodium Level 145 mmol/L (136-145) Potassium Level 3.1 mmol/L (3.5-5.1) Chloride Level 107 mmol/L (98-107) Carbon Dioxide Level 29 mmol/L (21-32) Anion Gap 9 (6-14) Blood Urea Nitrogen 14 mg/dL (7-20) Creatinine 1.2 mg/dL (0.6-1.0) Estimated GFR (Cockcroft-Gault) 55.1 Glucose Level 117 mg/dL (70-99) Calcium Level 8.7 mg/dL (8.5-10.1) Test 01/10/21 06:16 01/10/21 08:00 Glucose (Fingerstick) 122 mg/dL (70-99) O2 Saturation 99 % (92-99) Arterial Blood pH 7.47 (7.35-7.45) Arterial Blood pCO2 at Patient Temp 40 mmHg (35-46) Arterial Blood pO2 at Patient Temp 129 mmHg (65-108) Arterial Blood HCO3 29 mmol/L (21-28) Arterial Blood Base Excess 5 mmol/L (-3-3) FiO2 40% +5 Micro Micro Microbiology 01/06/21 Blood Culture - Preliminary, Resulted NO GROWTH AFTER 3 DAYS 01/05/21 Gram Stain Evaluation - Final, Complete 01/05/21 Respiratory Culture - Final, Complete 01/05/21 Antimicrobic Susceptibility - Final, Complete 01/04/21 Urine Culture - Final, Complete Review of Systems Constitutional: yes: unresponsive Physical Exam General Appearance: no apparent distress, febrile Respiratory: ventilator (Mode:A/C), decreased breath sounds Heart: S1S2 Abdomen: soft Genitourinary: bladder flat Extremities: pulses present, no edema Neurology: other (off sedation. Pupils fixed. not following commands ) Assessment Assessment IMP [id number] OF 2.4 TO 1.2 HYPERNATREMIA-IMPROVED HYPOKALEMIA ACUTE RESP FAILURE PROB PNEUMONIA DM II DIONNE OBESITY BACTEREMIA SEIZURES PLAN ANTIBIOTICS REPLACE K ANTIBIOTICS CONT WATER FLUSHES CONT WITH TF VENT SUPPORT REMAINS CRITICALLY ILL NEUROLOGY EVAL AND TX WILL FOLLOW EFE PRICE MD Jan 10, 2021 11:14
--- NOTE | 2021-01-10 12:02 | PDOC ---
JOSE EDUARDO GRECO COMMUNITY FACILITATOR 01/10/21 1202: CARDIO Progress Notes Date and Time Date of Service 01/10/21 Time of Evaluation 1200 Subjective Subjective: Other (intubated) Vitals Vitals Vital Signs Date Time Temp Pulse Resp B/P (MAP) Pulse Ox O2 Delivery O2 Flow Rate FiO2 01/10/21 11:04 100 Ventilator 01/10/21 11:00 77 18 144/70 (94) 01/10/21 08:00 99.1 99.1 Weight Weight [ ] Input and Output Intake and Output Intake and Output 01/10/21 07:00 Intake Total 3787.5 ml Output Total 1555 ml Balance 2232.5 ml Intake IV Total 417.5 ml Tube Feeding 2290 ml Other 1080 ml Output Urine Total 1555 ml Gastric Drainage Total 0 ml # Bowel Movements 2 Laboratory Labs Laboratory Tests Test 01/09/21 17:21 01/10/21 00:14 01/10/21 06:15 01/10/21 06:16 Glucose (Fingerstick) 116 mg/dL (70-99) 125 mg/dL (70-99) 122 mg/dL (70-99) White Blood Count 6.9 x10^3/uL (4.0-11.0) Red Blood Count 3.85 x10^6/uL (3.50-5.40) Hemoglobin 9.5 g/dL (12.0-15.5) Hematocrit 29.9 % (36.0-47.0) Mean Corpuscular Volume 78 fL (79-100) Mean Corpuscular Hemoglobin 25 pg (25-35) Mean Corpuscular Hemoglobin Concent 32 g/dL (31-37) Red Cell Distribution Width 15.8 % (11.5-14.5) Platelet Count 186 x10^3/uL (140-400) Neutrophils (%) (Auto) 75 % (31-73) Lymphocytes (%) (Auto) 10 % (24-48) Monocytes (%) (Auto) 12 % (0-9) Eosinophils (%) (Auto) 3 % (0-3) Basophils (%) (Auto) 0 % (0-3) Neutrophils # (Auto) 5.2 x10^3/uL (1.8-7.7) Lymphocytes # (Auto) 0.7 x10^3/uL (1.0-4.8) Monocytes # (Auto) 0.8 x10^3/uL (0.0-1.1) Eosinophils # (Auto) 0.2 x10^3/uL (0.0-0.7) Basophils # (Auto) 0.0 x10^3/uL (0.0-0.2) Sodium Level 145 mmol/L (136-145) Potassium Level 3.1 mmol/L (3.5-5.1) Chloride Level 107 mmol/L (98-107) Carbon Dioxide Level 29 mmol/L (21-32) Anion Gap 9 (6-14) Blood Urea Nitrogen 14 mg/dL (7-20) Creatinine 1.2 mg/dL (0.6-1.0) Estimated GFR (Cockcroft-Gault) 55.1 Glucose Level 117 mg/dL (70-99) Calcium Level 8.7 mg/dL (8.5-10.1) Test 01/10/21 08:00 01/10/21 11:38 O2 Saturation 99 % (92-99) Arterial Blood pH 7.47 (7.35-7.45) Arterial Blood pCO2 at Patient Temp 40 mmHg (35-46) Arterial Blood pO2 at Patient Temp 129 mmHg (65-108) Arterial Blood HCO3 29 mmol/L (21-28) Arterial Blood Base Excess 5 mmol/L (-3-3) FiO2 40% +5 Glucose (Fingerstick) 82 mg/dL (70-99) Microbiology Micro Microbiology 01/06/21 Blood Culture - Preliminary, Resulted NO GROWTH AFTER 3 DAYS 01/05/21 Gram Stain Evaluation - Final, Complete 01/05/21 Respiratory Culture - Final, Complete 01/05/21 Antimicrobic Susceptibility - Final, Complete 01/04/21 Urine Culture - Final, Complete Review of Systems Constitutional: yes: unresponsive Physical Exam HEENT: Neck Supple W Full Motion LUNGS: Other (mechanical vent ) Heart: RRR (SR) Abdomen: Other (soft ) Extremities: No Edema Neurology: other (off sedation. Pupils fixed. not following commands ) Assessment Assessment 1. Acute hypoxic hypercapnic respiratory failure with probable aspiration PNA. s/p intubation 2. 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 Echo 12/2019 with LVEF 45%. 3. VFIB during difficult intubation; possibly precipitated by hypoxia. Off amiodarone. One episode of 11 beat NSVT noted on tele 01/08 evening. None further 4. Mild troponin elevation; 0.6. most probably type II, demand ischemia secondary to CPR/defibrillation. EKG shows SR with RBBB 5. CAD; cath 12/07 showed patent long stented proximal to distal LAD. No lesions needing intervention were noted. Echo with LVEF 55 to 60%. 6. Hypertension; better controlled 7. Hyperlipidemia; statin therapy 8. Diabetes, II; as per IM 9. MIRIAM; Cr better 10. COPD, DIONNE: home CPAP 11. Hypokalemia; replaced 12. Anoxic encephalopathy, seizures; as per neuro 13. Leukocytosis, lactic acidosis, bacteremia; BC with GPC Recommendations Continue BB therapy Continue current secondary prevention measures including ASA/Plavix, statin, and Hydralazine IV PRN Ongoing lung optimization, treatment of PNA Prognosis poor; remains full code Supportive care Justicifation of Admission Dx: Justifications for Admission: Justification of Admission Dx: Yes ERICA ADEN MD 01/10/21 1619: CARDIO Progress Notes Assessment Assessment Patient seen and examined. Agree with ROCKET ENGINE COMPONENT MECHANIC's assessment and plan. No further episodes of VT/VF recorded since 01/08. She is currently off amiodarone. CAD status clinically stable. Slight troponin elevation probably demand ischemia. Continue vent management per pulmonary team. JOSE EDUARDO GRECO APRN Jan 10, 2021 12:02 ERICA ADEN MD Jan 10, 2021 16:19
--- NOTE | 2021-01-10 13:07 | PDOC ---
PROGRESS NOTES Date of Service DATE: 01/10/21 TIME: 13:05 Assessment Problems Medical Problems: (1) Acute renal failure Status: Acute (2) Altered mental status Status: Acute (3) Aspiration pneumonia Status: Acute (4) Hyperkalemia Status: Acute (5) Respiratory failure Status: Acute (6) Sepsis Status: Acute Metabolic encephalopathy, only has basic brainstem reflexes PLEDS and burst-suppression on EEG Respiratory failure, aspiration pneumonia, possible sepsis Acute STEMI, coronary artery disease status post stenting, chronic obstructive pulmonary disease, asthma, congestive heart failure, morbid obesity, renal failure, hyperkalemia, severe protein malnutrition, hypertensive urgency, hyper lipidemia, type 2 diabetes, obstructive sleep apnea, restless leg syndrome, peripheral neuropathy Plan Awaiting DNR decision from family. I have already spoken to patient's sister and daughter, son Lance appears to be the only objective to moving things along here Continue treating medical issues Aggressive treatment of the seizure activity is unlikely to affect outcome and would cloud the examination Overall prognosis is poor, but patient is not brain Subjective None Objective Vital Signs Date Time Temp Pulse Resp B/P (MAP) Pulse Ox O2 Delivery O2 Flow Rate FiO2 01/10/21 12:28 100 Ventilator 01/10/21 12:00 98.6 77 18 162/80 (107) 98.6 Intake and Output 01/10/21 07:00 Intake Total 3787.5 ml Output Total 1555 ml Balance 2232.5 ml Intake IV Total 417.5 ml Tube Feeding 2290 ml Other 1080 ml Output Urine Total 1555 ml Gastric Drainage Total 0 ml # Bowel Movements 2 PHYSICAL EXAM Has been off sedation since 01/05, no response to pain Triggers ventilator No myoclonic movements Pupils unreactive EOMI. roving eye movements CN: no focal findings. Muscle tone: normal. Muscle strength: No response DTR: 1+ Plantar reflex: Silent Gait: not examined Sensory exam: Not cooperative. Cerebellar: Not cooperative Review of Relevant I have reviewed the following items shady (where applicable) has been applied. Labs Laboratory Tests Test 01/08/21 17:47 01/08/21 23:45 01/09/21 05:34 01/09/21 05:35 Glucose (Fingerstick) 112 mg/dL (70-99) 104 mg/dL (70-99) 99 mg/dL (70-99) Sodium Level 144 mmol/L (136-145) Potassium Level 3.2 mmol/L (3.5-5.1) Chloride Level 106 mmol/L (98-107) Carbon Dioxide Level 30 mmol/L (21-32) Anion Gap 8 (6-14) Blood Urea Nitrogen 13 mg/dL (7-20) Creatinine 1.2 mg/dL (0.6-1.0) Estimated GFR (Cockcroft-Gault) 55.1 Glucose Level 94 mg/dL (70-99) Calcium Level 8.8 mg/dL (8.5-10.1) Magnesium Level 2.4 mg/dL (1.8-2.4) Test 01/09/21 08:10 01/09/21 11:34 01/09/21 17:21 01/10/21 00:14 O2 Saturation 98 % (92-99) Arterial Blood pH 7.48 (7.35-7.45) Arterial Blood pCO2 at Patient Temp 42 mmHg (35-46) Arterial Blood pO2 at Patient Temp 119 mmHg (65-108) Arterial Blood HCO3 30 mmol/L (21-28) Arterial Blood Base Excess 6 mmol/L (-3-3) FiO2 40 Glucose (Fingerstick) 113 mg/dL (70-99) 116 mg/dL (70-99) 125 mg/dL (70-99) Test 01/10/21 06:15 01/10/21 06:16 01/10/21 08:00 01/10/21 11:38 White Blood Count 6.9 x10^3/uL (4.0-11.0) Red Blood Count 3.85 x10^6/uL (3.50-5.40) Hemoglobin 9.5 g/dL (12.0-15.5) Hematocrit 29.9 % (36.0-47.0) Mean Corpuscular Volume 78 fL (79-100) Mean Corpuscular Hemoglobin 25 pg (25-35) Mean Corpuscular Hemoglobin Concent 32 g/dL (31-37) Red Cell Distribution Width 15.8 % (11.5-14.5) Platelet Count 186 x10^3/uL (140-400) Neutrophils (%) (Auto) 75 % (31-73) Lymphocytes (%) (Auto) 10 % (24-48) Monocytes (%) (Auto) 12 % (0-9) Eosinophils (%) (Auto) 3 % (0-3) Basophils (%) (Auto) 0 % (0-3) Neutrophils # (Auto) 5.2 x10^3/uL (1.8-7.7) Lymphocytes # (Auto) 0.7 x10^3/uL (1.0-4.8) Monocytes # (Auto) 0.8 x10^3/uL (0.0-1.1) Eosinophils # (Auto) 0.2 x10^3/uL (0.0-0.7) Basophils # (Auto) 0.0 x10^3/uL (0.0-0.2) Sodium Level 145 mmol/L (136-145) Potassium Level 3.1 mmol/L (3.5-5.1) Chloride Level 107 mmol/L (98-107) Carbon Dioxide Level 29 mmol/L (21-32) Anion Gap 9 (6-14) Blood Urea Nitrogen 14 mg/dL (7-20) Creatinine 1.2 mg/dL (0.6-1.0) Estimated GFR (Cockcroft-Gault) 55.1 Glucose Level 117 mg/dL (70-99) Calcium Level 8.7 mg/dL (8.5-10.1) Magnesium Level 2.5 mg/dL (1.8-2.4) Glucose (Fingerstick) 122 mg/dL (70-99) 82 mg/dL (70-99) O2 Saturation 99 % (92-99) Arterial Blood pH 7.47 (7.35-7.45) Arterial Blood pCO2 at Patient Temp 40 mmHg (35-46) Arterial Blood pO2 at Patient Temp 129 mmHg (65-108) Arterial Blood HCO3 29 mmol/L (21-28) Arterial Blood Base Excess 5 mmol/L (-3-3) FiO2 40% +5 Laboratory Tests Test 01/09/21 17:21 01/10/21 00:14 01/10/21 06:15 01/10/21 06:16 Glucose (Fingerstick) 116 mg/dL (70-99) 125 mg/dL (70-99) 122 mg/dL (70-99) White Blood Count 6.9 x10^3/uL (4.0-11.0) Red Blood Count 3.85 x10^6/uL (3.50-5.40) Hemoglobin 9.5 g/dL (12.0-15.5) Hematocrit 29.9 % (36.0-47.0) Mean Corpuscular Volume 78 fL (79-100) Mean Corpuscular Hemoglobin 25 pg (25-35) Mean Corpuscular Hemoglobin Concent 32 g/dL (31-37) Red Cell Distribution Width 15.8 % (11.5-14.5) Platelet Count 186 x10^3/uL (140-400) Neutrophils (%) (Auto) 75 % (31-73) Lymphocytes (%) (Auto) 10 % (24-48) Monocytes (%) (Auto) 12 % (0-9) Eosinophils (%) (Auto) 3 % (0-3) Basophils (%) (Auto) 0 % (0-3) Neutrophils # (Auto) 5.2 x10^3/uL (1.8-7.7) Lymphocytes # (Auto) 0.7 x10^3/uL (1.0-4.8) Monocytes # (Auto) 0.8 x10^3/uL (0.0-1.1) Eosinophils # (Auto) 0.2 x10^3/uL (0.0-0.7) Basophils # (Auto) 0.0 x10^3/uL (0.0-0.2) Sodium Level 145 mmol/L (136-145) Potassium Level 3.1 mmol/L (3.5-5.1) Chloride Level 107 mmol/L (98-107) Carbon Dioxide Level 29 mmol/L (21-32) Anion Gap 9 (6-14) Blood Urea Nitrogen 14 mg/dL (7-20) Creatinine 1.2 mg/dL (0.6-1.0) Estimated GFR (Cockcroft-Gault) 55.1 Glucose Level 117 mg/dL (70-99) Calcium Level 8.7 mg/dL (8.5-10.1) Magnesium Level 2.5 mg/dL (1.8-2.4) Test 01/10/21 08:00 01/10/21 11:38 O2 Saturation 99 % (92-99) Arterial Blood pH 7.47 (7.35-7.45) Arterial Blood pCO2 at Patient Temp 40 mmHg (35-46) Arterial Blood pO2 at Patient Temp 129 mmHg (65-108) Arterial Blood HCO3 29 mmol/L (21-28) Arterial Blood Base Excess 5 mmol/L (-3-3) FiO2 40% +5 Glucose (Fingerstick) 82 mg/dL (70-99) Microbiology 01/06/21 Blood Culture - Preliminary, Resulted NO GROWTH AFTER 3 DAYS 01/05/21 Gram Stain Evaluation - Final, Complete 01/05/21 Respiratory Culture - Final, Complete 01/05/21 Antimicrobic Susceptibility - Final, Complete 01/04/21 Urine Culture - Final, Complete Medications Current Medications Amiodarone HCl 450 mg/Dextrose 259 ml @ 33 mls/hr 1X ONCE IV Last administered on 01/04/21at 11:40; Start 01/04/21 at 11:15; Stop 01/04/21 at 1 9:05; Status DC Midazolam HCl 100 ml @ 1 mls/hr 1X ONCE IV Last administered on 01/04/21at 11:39; Start 01/04/21 at 11:30; Stop 01/05/21 at 09:51; Status DC Sodium Chloride 1,000 ml @ 1,000 mls/hr 1X ONCE IV Last administered on 01/04/21at 12:13; Start 01/04/21 at 11:45; Stop 01/04/21 at 12:44; Status DC Sodium Bicarbonate (Sodium Bicarb Adult 8.4% Syr) 50 meq 1X ONCE IV Last administered on 01/04/21at 12:55; Start 01/04/21 at 12:00; Stop 01/04/21 at 12:01; Status DC Dextrose (Dextrose 50%-Water Syringe) 25 gm 1X ONCE IV Last administered on 01/04/21at 12:53; Start 01/04/21 at 12:00; Stop 01/04/21 at 12:01; Status DC Insulin Human Regular (HumuLIN R VIAL) 10 unit 1X ONCE IV Last administered on 01/04/21at 12:52; Start 01/04/21 at 12:00; Stop 01/04/21 at 12:01; Status DC Piperacillin Sod/ Tazobactam Sod 3.375 gm/Sodium Chloride 50 ml @ 100 mls/hr 1X ONCE IV Last administered on 01/04/21at 12:12; Start 01/04/21 at 12:00; Stop 01/04/21 at 12:29; Status DC Succinylcholine Chloride (Anectine) 100 mg 1X ONCE IV Last administered on 01/04/21at 11:03; Start 01/04/21 at 12:45; Stop 01/04/21 at 12:46; Status DC Etomidate (Amidate) 20 mg 1X ONCE IV Last administered on 01/04/21at 11:02; Start 01/04/21 at 12:45; Stop 01/04/21 at 12:46; Status DC Rocuronium Randolph (Zemuron) 100 mg 1X ONCE IV ; Start 01/04/21 at 12:45; Stop 01/04/21 at 12:46; Status Cancel Midazolam HCl (Versed) 5 mg 1X ONCE IV Last administered on 01/04/21at 11:30; Start 01/04/21 at 12:45; Stop 01/04/21 at 12:46; Status DC Rocuronium Randolph (Zemuron) 100 mg 1X ONCE IV Last administered on 01/04/21at 11:33; Start 01/04/21 at 12:45; Stop 01/04/21 at 12:46; Status DC Ondansetron HCl (Zofran) 4 mg PRN Q8HRS PRN IV NAUSEA/VOMITING; Start 01/04/21 at 13:00; Stop 01/05/21 at 09:48; Status DC Sodium Chloride 1,000 ml @ 100 mls/hr Q10H IV Last administered on 01/05/21at 09:41; Start 01/04/21 at 13:00; Stop 01/05/21 at 12:59; Status DC Ondansetron HCl (Zofran) 4 mg PRN Q6HRS PRN IVP NAUSEA/VOMITING; Start 01/04/21 at 14:00 Famotidine (Pepcid Vial) 20 mg QHS IVP Last administered on 01/09/21at 20:43; Start 01/04/21 at 21:00 Heparin Sodium (Porcine) (Heparin Sodium) 5,000 unit Q8HRS SQ Last administered on 01/10/21at 06:20; Start 01/04/21 at 14:00 Sodium Chloride (Normal Saline Flush) 3 ml QSHIFT PRN IV AFTER MEDS AND BLOOD DRAWS; Start 01/04/21 at 14:00 Bisacodyl (Dulcolax Supp) 10 mg PRN DAILY PRN GA CONSTIPATION; Start 01/04/21 at 14:00 Piperacillin Sod/ Tazobactam Sod (Zosyn Per Pharmacy) 1 each PRN DAILY PRN MC SEE COMMENTS; Start 01/04/21 at 14:00; Stop 01/04/21 at 17:48; Status DC Piperacillin Sod/ Tazobactam Sod 2.25 gm/Sodium Chloride 50 ml @ 100 mls/hr Q6HRS IV ; Start 01/04/21 at 18:00; Stop 01/04/21 at 17:49; Status DC Dextrose (Dextrose 50%-Water Syringe) 25 gm 1X ONCE IV Last administered on 01/04/21at 16:21; Start 01/04/21 at 16:15; Stop 01/04/21 at 16:16; Status DC Meropenem 500 mg/ Sodium Chloride 50 ml @ 100 mls/hr Q8HRS IV ; Start 01/04/21 at 18:00; Status Cancel Piperacillin Sod/ Tazobactam Sod 2.25 gm/Sodium Chloride 50 ml @ 100 mls/hr Q8HRS IV Last administered on 01/08/21at 06:01; Start 01/04/21 at 22:00; Stop 01/08/21 at 07:50; Status DC Linezolid/Dextrose 300 ml @ 300 mls/hr Q12HR IV Last administered on 01/07/21at 21:23; Start 01/04/21 at 21:00; Stop 01/08/21 at 10:41; Status DC Valproic Acid 500 mg/Dextrose 55 ml @ 55 mls/hr Q12HR IV Last administered on 01/05/21at 09:40; Start 01/05/21 at 09:00; Stop 01/05/21 at 17:28; Status DC Valproic Acid 1000 mg/Dextrose 60 ml @ 60 mls/hr 1X ONCE IV Last administered on 01/04/21at 19:30; Start 01/04/21 at 19:30; Stop 01/04/21 at 20:29; Status DC Lorazepam (Ativan Inj) 2 mg PRN Q2HRS PRN IVP ANXIETY / AGITATION Last administered on 01/05/21at 23:30; Start 01/04/21 at 19:30; Stop 01/08/21 at 08:16; Status DC Hydralazine HCl (Apresoline Inj) 10 mg PRN Q6HRS PRN IVP ELEVATED BP, SEE COMMENTS Last administered on 01/10/21at 01:08; Start 01/04/21 at 19:45 Amiodarone HCl 450 mg/Dextrose 259 ml @ 33 mls/hr CONT PRN IV SEE I/O RECORD Last administered on 01/05/21at 11:50; Start 01/04/21 at 20:15; Stop 01/05/21 at 11:50; Status DC Midazolam HCl 100 ml @ 1 mls/hr CONT PRN IV SEE I/O RECORD Last administered on 01/05/21at 02:00; Start 01/05/21 at 02:00; Stop 01/08/21 at 08:16; Status DC Daptomycin 600 mg/ Sodium Chloride 50 ml @ 100 mls/hr Q48H IV Last administered on 01/07/21at 15:40; Start 01/05/21 at 16:00; Stop 01/08/21 at 07:52; Status DC Scopolamine (Transderm-Scop) 1 patch Q3DAYS TD Last administered on 01/08/21at 08:08; Start 01/05/21 at 17:00; Stop 01/08/21 at 08:16; Status DC Valproic Acid 750 mg/Dextrose 57.5 ml @ 57.5 mls/hr Q12HR IV Last administered on 01/10/21at 08:40; Start 01/05/21 at 21:00 Insulin Human Lispro (HumaLOG) 0-5 UNITS TIDWMEALS SQ Last administered on 01/05/21at 18:27; Start 01/05/21 at 18:30; Stop 01/06/21 at 08:42; Status DC Dextrose (Dextrose 50%-Water Syringe) 12.5 gm PRN Q15MIN PRN IV SEE COMMENTS; Start 01/05/21 at 18:15 Amiodarone HCl 450 mg/Dextrose 259 ml @ 0 mls/hr 1X ONCE IV Last administered on 01/06/21at 02:00; Start 01/06/21 at 02:00; Stop 01/06/21 at 02:01; Status DC Insulin Human Lispro (HumaLOG) 0-5 UNITS Q6HRS SQ ; Start 01/06/21 at 12:00 Amiodarone HCl 450 mg/Dextrose 259 ml @ 0 mls/hr 1X ONCE IV Last administered on 01/06/21at 17:05; Start 01/06/21 at 17:00; Stop 01/06/21 at 17:01; Status DC Amiodarone HCl (Cordarone) 400 mg DAILY PO ; Start 01/07/21 at 14:00; Stop 01/07/21 at 13:15; Status DC Multi-Ingred Cream/Lotion/Oil/ Oint (Artificial Tears Eye Ointment) 1 choi PRN Q1HR PRN OU DRY EYE Last administered on 01/07/21at 14:14; Start 01/07/21 at 13:00 Aspirin (Blessing Aspirin) 325 mg DAILY PO Last administered on 01/08/21at 08:12; Start 01/08/21 at 09:00; Stop 01/09/21 at 09:16; Status DC Clopidogrel Bisulfate (Plavix) 75 mg DAILYWBKFT PO Last administered on 01/10/21at 07:19; Start 01/08/21 at 08:00 Hydralazine HCl (Apresoline) 25 mg BID PO Last administered on 01/10/21at 08:41; Start 01/07/21 at 21:00 Metoprolol Succinate (Toprol Xl) 25 mg DAILY PO ; Start 01/08/21 at 09:00; Stop 01/08/21 at 07:44; Status DC Isosorbide Mononitrate (Imdur) 120 mg DAILY PO ; Start 01/08/21 at 09:00; Stop 01/08/21 at 08:16; Status DC Losartan Potassium (Cozaar) 100 mg DAILY PO Last administered on 01/10/21at 08:41; Start 01/08/21 at 09:00 Atorvastatin Calcium (Lipitor) 80 mg QHS PO Last administered on 01/09/21at 20:49; Start 01/07/21 at 21:00 Epinephrine HCl (EPINEPHrine SYRINGE) 2 mg STK-MED ONCE .ROUTE ; Start 01/04/21 at 11:00; Stop 01/07/21 at 17:12; Status DC Amiodarone HCl (Cordarone) 300 mg STK-MED ONCE .ROUTE ; Start 01/04/21 at 11:00; Stop 01/07/21 at 17:12; Status DC Metoprolol Tartrate (Lopressor) 12.5 mg BID PO Last administered on 01/10/21at 08:42; Start 01/08/21 at 09:00 Piperacillin Sod/ Tazobactam Sod 3.375 gm/Sodium Chloride 50 ml @ 100 mls/hr Q6HRS IV Last administered on 01/10/21at 11:38; Start 01/08/21 at 12:00 Daptomycin 600 mg/ Sodium Chloride 50 ml @ 100 mls/hr Q24H IV Last administered on 01/09/21at 15:41; Start 01/08/21 at 16:00 Isosorbide Mononitrate (Ismo) 20 mg BID92 PO Last administered on 01/10/21at 08:41; Start 01/08/21 at 09:00 Aspirin (Aspirin Chewable) 81 mg DAILYWBKFT PO Last administered on 01/10/21at 07:19; Start 01/08/21 at 08:30 Glycopyrrolate (Robinul) 1 mg PRN DAILY PRN IV Secretions Last administered on 01/10/21at 08:43; Start 01/08/21 at 08:45 Potassium Chloride/Water 100 ml @ 100 mls/hr Q1H IV Last administered on 01/08/21at 13:37; Start 01/08/21 at 12:00; Stop 01/08/21 at 13:59; Status DC Potassium Bicarbonate (Potassium Effervescent Tablet) 40 meq 1X ONCE PEG Last administered on 01/09/21at 11:02; Start 01/09/21 at 09:30; Stop 01/09/21 at 09:31; Status DC Potassium Bicarbonate (Potassium Effervescent Tablet) 40 meq 1X ONCE PO Last administered on 01/10/21at 07:19; Start 01/10/21 at 08:00; Stop 01/10/21 at 08:01; Status DC Active Scripts Active Promethazine Hcl 12.5 Mg Tablet 12.5 Mg PO PRN Q6HRS PRN 30 Days Metoprolol Succinate ( Xl ) (Metoprolol Succinate) 25 Mg Tab.er.24h 25 Mg PO DAILY 30 Days Pantoprazole Sodium (Pantoprazole Sodium) 40 Mg Tablet.dr 40 Mg PO BIDAC 30 Days Clopidogrel (Clopidogrel Bisulfate) 75 Mg Tablet 75 Mg PO DAILYWBKFT 75 Days Reported Voltaren (Diclofenac Sodium) 100 Gm Gel..gram. 1 Gm TP QID 30 Days apply to affected area(s) Nystatin 15 Gm Powder 1 [place] TP BID 7 Days apply to affected area(s) Ondansetron Odt (Ondansetron) 4 Mg Tab.rapdis 1 Tab PO PRN Q8HRS PRN Reglan (Metoclopramide Hcl) 10 Mg Tablet 1 Tab PO QID 30 Days before food and bedtime Losartan Potassium 100 Mg Tablet 100 Mg PO DAILY Aspirin 325 Mg Tablet 1 Tab PO DAILY Metformin Hcl 500 Mg Tablet 500 Mg PO BIDWMEALS Bumetanide 1 Mg Tablet 1 Mg PO BID Insulin Aspart 100 Unit/1 Ml Vial 60 Unit SQ TIDAC novolg flex pen Isosorbide Mononitrate Er (Isosorbide Mononitrate) 120 Mg Tab.er.24h 120 Mg PO DAILY NITROGLYCERIN SubLingual (Nitroglycerin) 0.4 Mg Tab.subl 0.4 Mg SL PRN Q5MIN PRN Albuterol Sulfate Neb Soln (Albuterol Sulfate) 2.5 Mg/3 Ml Vial.neb 2.5 Mg NEB Q4-6HRS PRN Levemir Flextouch (Insulin Detemir) 100 Unit/1 Ml Insuln.pen 60 Unit SQ HS Hydralazine Hcl 25 Mg Tablet 25 Mg PO BID Fluticasone Propionate Nasal [place] (Fluticasone Propionate) 16 Gm [place].susp 2 [place] NS DAILY Zolpidem Tartrate 5 Mg Tablet 5 Mg PO PRN QHS PRN Amlodipine Besylate 10 Mg Tablet 10 Mg PO DAILY Gabapentin 600 Mg Tablet 600 Mg PO BID Potassium Chloride (Potassium Chloride) 20 Meq Tablet.er 20 Meq PO BID Proair Respiclick (Albuterol Sulfate) 90 Mcg Aer.pow.ba 2 Puff IH PRN Q4-6HRS PRN Cyclobenzaprine Hcl 10 Mg Tablet 1 Tab PO BID PRN Requip (Ropinirole Hcl) 1 Mg Tablet 1 Tab PO QHS Crestor (Rosuvastatin Calcium) 20 Mg Tablet 20 Mg PO HS LAST DOSE: 10/01/15 BEDTIME NEXT DOSE: 10/02/15 BEDTIME Oxybutynin Chloride 5 Mg Tablet 1 Tab PO DAILY LAST DOSE: 10/02/15 AM NEXT DOSE: 3/16/16 AM Vitals/I & O Vital Sign - Last 24 Hours 01/09/21 01/09/21 01/09/21 01/09/21 13:19 14:00 14:04 15:00 Pulse 73 74 74 Resp 18 18 B/P (MAP) 187/86 (119) 187/86 187/88 (121) Pulse Ox 99 100 100 O2 Delivery Ventilator Ventilator Ventilator 01/09/21 01/09/21 01/09/21 01/09/21 15:43 15:55 16:00 16:37 Pulse 76 76 Resp 18 B/P (MAP) 186/71 (109) 186/71 Pulse Ox 99 100 O2 Delivery Ventilator Mechanical Ventilator Ventilator 01/09/21 01/09/21 01/09/21 01/09/21 16:53 17:00 18:00 19:00 Temp 99.1 99.1 Pulse 81 81 82 Resp 18 18 20 B/P (MAP) 164/59 (94) 144/62 (89) 164/70 (101) Pulse Ox 99 98 97 97 O2 Delivery Ventilator Ventilator Ventilator Ventilator 01/09/21 01/09/21 01/09/21 01/09/21 20:00 20:00 20:30 20:48 Temp 99.0 99.0 Pulse 82 87 Resp 18 B/P (MAP) 148/59 (88) 182/90 Pulse Ox 98 99 O2 Delivery Ventilator Mechanical Ventilator Ventilator 01/09/21 01/09/21 01/09/21 01/09/21 20:49 21:00 22:00 22:30 Pulse 87 87 64 Resp 20 20 B/P (MAP) 182/90 177/87 (117) 104/48 (66) Pulse Ox 95 99 99 O2 Delivery Ventilator Ventilator Ventilator 01/09/21 01/09/21 01/09/21 01/10/21 23:00 23:59 23:59 00:30 Temp 98.9 98.9 Pulse 71 69 Resp 18 18 B/P (MAP) 147/66 (93) 150/67 (94) Pulse Ox 100 100 100 O2 Delivery Ventilator Ventilator Mechanical Ventilator Ventilator 01/10/21 01/10/21 01/10/21 01/10/21 01:00 01:08 01:30 02:00 Pulse 77 77 77 73 Resp 20 18 18 B/P (MAP) 189/68 (108) 189/68 140/54 (82) 141/54 (83) Pulse Ox 98 97 99 O2 Delivery Ventilator Ventilator Ventilator 01/10/21 01/10/21 01/10/21 01/10/21 02:30 03:00 04:00 04:00 Temp 99.6 99.6 Pulse 72 65 Resp 16 16 B/P (MAP) 145/60 (88) 123/46 (71) Pulse Ox 98 99 99 O2 Delivery Ventilator Ventilator Ventilator Mechanical Ventilator 01/10/21 01/10/21 01/10/21 01/10/21 05:00 05:30 06:00 07:00 Pulse 79 73 78 Resp 18 16 18 B/P (MAP) 153/86 (108) 144/64 (90) 165/75 (105) Pulse Ox 99 100 100 100 O2 Delivery Ventilator Ventilator Ventilator Ventilator 01/10/21 01/10/21 01/10/21 01/10/21 07:29 07:34 08:00 08:41 Temp 99.1 99.1 Pulse 77 77 Resp 18 B/P (MAP) 145/99 (114) 145/99 Pulse Ox 99 95 O2 Delivery Ventilator Mechanical Ventilator Ventilator 01/10/21 01/10/21 01/10/21 01/10/21 08:41 08:41 08:42 09:00 Pulse 77 77 77 77 Resp 18 B/P (MAP) 145/99 145/99 145/99 140/76 (97) Pulse Ox 100 O2 Delivery Ventilator 01/10/21 01/10/21 01/10/21 01/10/21 09:08 10:00 11:00 11:04 Pulse 76 77 Resp 18 18 B/P (MAP) 138/68 (91) 144/70 (94) Pulse Ox 100 98 97 100 O2 Delivery Ventilator Ventilator Ventilator Ventilator 01/10/21 01/10/21 01/10/21 12:00 12:00 12:28 Temp 98.6 98.6 Pulse 77 Resp 18 B/P (MAP) 162/80 (107) Pulse Ox 100 100 O2 Delivery Ventilator Mechanical Ventilator Ventilator Intake and Output 01/09/21 01/09/21 01/10/21 15:00 23:00 07:00 Intake Total 570 ml 1752.5 ml 1465 ml Output Total 580 ml 535 ml 440 ml Balance -10 ml 1217.5 ml 1025 ml Justicifation of Admission Dx: Justifications for Admission: Justification of Admission Dx: Yes SWATHI BOOTH MD Jan 10, 2021 13:06
--- NOTE | 2021-01-10 15:28 | NUR ---
SS following up with discharge planning. SS reviewed pt chart and discussed with RN. Pt is currently on the vent at 40%. Pt on IV Daptomycin and IV Zosyn. No sedation. Pt not responsive. Pt Full Code at this time. Physicians discussing goals of care and code status with pt's family. SS will continue to follow for discharge planning.
[2021-01-10] MEDS: DAPTOmycin (GENERIC) IVPB 600 MG in IV NORMAL SALINE 50ML 50 ML IV SCH (16:02)
[2021-01-10] MEDS ORDERED: FUROSEMIDE 40 MG/4 ML VIAL. IVP ONE (17:45)
[2021-01-10] MEDS ORDERED: POTASSIUM BICARB 20 MEQ EFFERVESCENT TABLET. PEG ONE (19:00)
[2021-01-10] MEDS: ATORVASTATIN CALCIUM 40 MG TABLET. PO SCH (21:07)
[2021-01-10] MEDS: FAMOTIDINE 20 MG/2 ML VIAL IVP SCH (21:07)
[2021-01-11] VITALS (24 sets, daily range): BP systolic 101–167; BP diastolic 44–92
[2021-01-11] MEDS: PIPERACILLIN/TAZOBACTAM 3.375 GM in IV NORMAL SALINE 50ML 50 ML IV SCH ×5 (05:46→23:39)
[2021-01-11] MEDS: HEPARIN for SUB-Q USE 5,000 UNIT/ML VIAL. SQ SCH ×3 (05:46→21:08)
[2021-01-11] MEDS: INSULIN LISPRO 300 UNITS/3 ML VIAL. SQ SCH ×5 (05:50→23:38)
[2021-01-11 06:05] LABS: CALCIUM 8.7 mg/dL (8.5-10.1); CREATININE 1.4 mg/dL (0.6-1.0); GFR 46.1; POTASSIUM 3.9 mmol/L (3.5-5.1)
--- NOTE | 2021-01-11 06:40 | PDOC ---
Infectious Disease Note Subjective: Subjective Intubated , opens eyes intermittently but does not respond to any question Intermittent twitching of right upper extremity Vital Signs: Vital Signs Vital Signs Date Time Temp Pulse Resp B/P (MAP) Pulse Ox O2 Delivery O2 Flow Rate FiO2 01/11/21 06:00 66 18 125/55 (78) 100 Ventilator 01/11/21 04:00 99.3 99.3 Physical Exam: PHYSICAL EXAM GENERAL: Intubated, opens eyes transiently, does not follow any commands HEENT: Normocephalic, atraumatic. Tongue protruded, ETT /OGT + NECK: Supple though fullness due to body habitus. LUNGS: Decreased breath sounds. No wheezing. HEART: S1, S2. Distant heart sounds. ABDOMEN: Obese. Bowel sounds present. EXTREMITIES: Minimal edema. No cyanosis. NEUROLOGIC: Intubated,right upper extremity intermittent twitching Left IJ clean Medications: Inpatient Meds: Medications reviewed. Labs: Lab Laboratory Tests Test 01/10/21 08:00 01/10/21 11:38 01/10/21 17:33 01/10/21 23:53 O2 Saturation 99 % (92-99) Arterial Blood pH 7.47 (7.35-7.45) Arterial Blood pCO2 at Patient Temp 40 mmHg (35-46) Arterial Blood pO2 at Patient Temp 129 mmHg (65-108) Arterial Blood HCO3 29 mmol/L (21-28) Arterial Blood Base Excess 5 mmol/L (-3-3) FiO2 40% +5 Glucose (Fingerstick) 82 mg/dL (70-99) 87 mg/dL (70-99) 95 mg/dL (70-99) Test 01/11/21 05:00 01/11/21 05:45 Sodium Level 144 mmol/L (136-145) Potassium Level 3.9 mmol/L (3.5-5.1) Chloride Level 105 mmol/L (98-107) Carbon Dioxide Level 32 mmol/L (21-32) Anion Gap 7 (6-14) Blood Urea Nitrogen 17 mg/dL (7-20) Creatinine 1.4 mg/dL (0.6-1.0) Estimated GFR (Cockcroft-Gault) 46.1 Glucose Level 90 mg/dL (70-99) Calcium Level 8.7 mg/dL (8.5-10.1) Magnesium Level 2.4 mg/dL (1.8-2.4) Glucose (Fingerstick) 83 mg/dL (70-99) Objective: Assessment: 1. Fever. Resolved 2. Leukocytosis and lactic acidosis. Proving 3. Acute hypoxic respiratory failure. Status post intubation 4. Suspected aspiration pneumonia. Sputum culture positive for mssa 5. Status post cardiopulmonary arrest. 6. Questionable seizures. Encephalopathy 7. Diabetes mellitus 2. 8. Morbid obesity. 9. Obstructive sleep apnea. 10. Coronary artery disease. 11. Chronic kidney disease 12. Hypernatremia and hyperkalemia. 13 Gram-positive bacteremia bacteremia 2 out of 4 bottles present on admission staph epidermidis Plan: Plan of Care 1. Continue Zosyn , daptomycin 2. Follow up labs and cultures. Follow-up repeat blood cultures 01/06 negative so far 3. Continue supportive care. 4. Critically ill. 5. Prognosis poor. 6. Team is attempting to discuss final goals of treatment with family Discussed with nursing staff LUDY CRUZ MD Jan 11, 2021 06:40
[2021-01-11 07:30] LABS: BASE EXCESS ABG 9 mmol/L (-3-3); HCO3 ABG 33 mmol/L (21-28); PCO2 ABG 46 mmHg (35-46); PO2 ABG 137 mmHg (65-108); SAT O2 ABG 99 % (92-99)
[2021-01-11 07:32] LABS: FIO2 ABG 40% VENT
--- NOTE | 2021-01-11 07:49 | RAD ---
EXAMINATION: Chest radiograph. VIEWS: Single view COMPARISON: 01/08/2021 INDICATION:60 years, Female, ventilator patient. FINDINGS: Stable enlarged cardiomediastinal silhouette. Endotracheal tube tip locates approximately 5.5 cm prox imal to the sukh. Enteric tube tip is off image, presumably in the stomach. Left IJ central venous catheter remains unchanged. Similar bilateral perihilar opacities. Similar small left pleural effusio n with associated atelectasis. No pneumothorax. No acute osseous process. IMPRESSION: No significant interval change. Electronically signed by: Jose Wharton MD (01/11/2021 7:46 AM) [facility]
[2021-01-11] MEDS: CLOPIDOGREL BISULFATE 75 MG TABLET PO SCH (07:57)
[2021-01-11] MEDS: hydrALAZINE 25 MG TABLET PO SCH ×2 (07:57→21:13)
[2021-01-11] MEDS: ASPIRIN CHEWABLE 81 MG TABLET. PO SCH (07:58)
[2021-01-11] MEDS: ISOSORBIDE MONONITRATE 20 MG TABLET PO SCH ×2 (07:58→15:06)
[2021-01-11] MEDS: METOPROLOL TART IMMED RELEASE 25 MG TABLET. PO SCH ×2 (07:58→21:12)
[2021-01-11] MEDS: VALPROIC ACID (AS SODIUM SALT) 750 MG in IV DEXTROSE 5% 50 ML IV SCH ×2 (07:59→21:11)
[2021-01-11] MEDS: LOSARTAN POTASSIUM 50 MG TABLET. PO SCH (07:59)
--- NOTE | 2021-01-11 08:25 | PDOC ---
[employer] PROGRESS NOTE Date of Service DOS: DATE: 01/11/21 TIME: 08:24 Chief Complaint Chief Complaint Assessment/Plan Respiratory failure SUSPECT aspiration pneumonia Mild prominent interstitial lung markings likely mild congestive changes or interstitial infiltrates Ventricular fib arrest - on amio CAD Extensive stenting of the LAD with the most significant area of restenosis being a 35% lesion in the mid vessel. Mild disease in the right coronary artery. PCI to the LAD and ramus on 10/2017. Cardiac cath on 12/12/2020 with no new disease. Acute renal failure/ MIRIAM Hyperkalemia Aspiration pneumonia Altered mental status Sepsis MORBID OBESITY Severe protein malnutrition HTN urgency - Cont meds, prn IV hydralazine Hyperlipidemia - on statin DM2 - BG controlled. Will cut her lantus given NPO status. A1c 5.6 CKD3 - with MIRIAM, above DIONNE wtih CPAP - asked to bring home BIPAP in if she is extubated COPD - on chronic home O2, will continue current meds Chronic systolic CHF (reduced EF to 42% 12/2019) - cont meds. RLS Peripheral neuropathy ICU BED Consult cardiology Nephrology consult ID CONSULT PULM CONSULT VENT SUPPORT DVT PROPHYLAXIS EMPERIC IV ANTIBIOTICS, Zosyn pending id consult Neurology consult History of Present Illness History of Present Illness Ms Castro is a 60 year old female w/ PMHx Asthma, CAD s/p stenting x6, CHF, COPD, Diabetes-Type II, High Cholesterol, Hypertension, neuropathy, morbid obesity, RLS, insomnia who presented to ER after she was brought here by EMS from home after she was found unresponsive in her bed by her family. Patient was last known normal was 9 AM on 01/03/2021. family tried to call her but could not get a hold of her so they show up to her house, found her unresponsive in her bed. Per family, patient had a CPAP machine on but the mask slid off her face, there was lot of mucus and material around her face and on her neck area. Patient was responsive to painful stimuli but was very confused, did not follow command. EMS were called, they found her in respiratory distress, GCS of 7-8, they bagged her and brought her here. Upon arrival to room, patient was unresponsive to verbal, severe respiratory distress, need emergent intubation. During the difficult intubation patient became bradycardic and CODE BLUE was initiated. Patient subsequently went into ventricular fibrillation, underwent shock therapy and was initiated on intravenous amiodarone infusion and admitted to ICU. She has been admitted to [facility] x2 for intractable nausea and vomiting and PMC once has had this as well as intense pruritis for 6 months. Was seen and treated for same in November, underwent cardiac cath and GI consultation at the time, was discharged home. Her family stated that patient was seen here 2 days prior for epigastric abdominal pain. It was recommended that she need to stay in the hospital however patient did not want to stay in the hospital so she went home. AMA. 01/05: No acute events overnight. Patient seen and examined bedside. Patient remains intubated. Without sedation. Vent settings at 18/450/40/5. Patient is not responding to painful stimuli at this time. There is a lot of secretions. Currently not on any vasopressors 01/06: No acute events overnight. Patient withdraws to pain. Still intubated with vent settings at 16/450/40/5. Not on any sedation at this time. Patient's chart, labs, images were reviewed and discussed with RN 01/07: No overnight events. Afebrile. On vent with no sedation for 48 hours FiO2 40% PEEP of 5. Not requiring vasopressors. Not making meaningful eye contact or meaningful movement. Minimal reflexes. Breathing over the vent. Discussed with son, Lance overall poor prognosis given what is likely anoxic encephalopathy. He wants to discuss with his aunt Liss and sister Camille future goals of care. 01/08: No events. Afebrile. Still with no meaningful activity no sedation on vent FiO2 40% PEEP of 5, ABG 7.45/46/142. No BM. Adequate UOP. No residuals on feeds. EEG interpreted by neurology as abnormal because of a severe diffuse disturbance of cerebral activity, consistent with a very poor prognosis from anoxic encephalopathy. 01/09: Overnight ventilated no significant activity he still off sedation. K3.2. Vent FiO2 40% PEEP of 5. Chest radiograph unchanged from prior. Right hand with new twitching, concerning for seizure activity, d/w neurology. D/w sons goals of care and grim neurologic prognosis. 01/10: No overnight events. Afebrile, K3.1. ABG 7.4 7/40/129 on 40% FiO2. CXR stable. Still with right hand tremor. Long d/w son, Lance, and his significant other. No overnight events. Chest radiograph stable, ABG on 40% FiO2 and PEEP 5 was 7.48/46/137. Heart rate slowing down and blood pressure coming up a bit. Glucose stable. No sedating meds for over 96 hours. No meaningful interaction. Babinski reflexes demonstrated to family. Advance care planning total time spent [id number] with patient's family 31 minutes in discussion with goals of care, comfort care, end-of-life care, pain management, CODE STATUS. Vitals/I&O Vitals/I&O: Vital Signs Date Time Temp Pulse Resp B/P (MAP) Pulse Ox O2 Delivery O2 Flow Rate FiO2 01/11/21 07:59 65 137/70 01/11/21 07:41 Mechanical Ventilator 01/11/21 07:24 100 01/11/21 07:00 22 01/11/21 04:00 99.3 99.3 I & O 01/10/21 01/10/21 01/11/21 15:00 23:00 07:00 Intake Total 940 ml 1008 ml 550 ml Output Total 560 ml 800 ml 675 ml Balance 380 ml 208 ml -125 ml Physical Exam Physical Exam: GENERAL: Intubated, opens eyes transiently, does not follow any commands HEENT: Normocephalic, atraumatic. Tongue protruded, ETT /OGT + NECK: Supple though fullness due to body habitus. LUNGS: Decreased breath sounds. No wheezing. HEART: S1, S2. Distant heart sounds. ABDOMEN: Obese. Bowel sounds present. EXTREMITIES: Minimal edema. No cyanosis. NEUROLOGIC: Intubated, facial and right upper extremity intermittent twitching Left IJ clean General: Other Heart: Regular rate Lungs: Crackles Abdomen: Soft Extremities: Other (Trace edema) Labs Labs: Laboratory Tests Test 01/10/21 11:38 01/10/21 17:33 01/10/21 23:53 01/11/21 05:00 Glucose (Fingerstick) 82 mg/dL (70-99) 87 mg/dL (70-99) 95 mg/dL (70-99) Sodium Level 144 mmol/L (136-145) Potassium Level 3.9 mmol/L (3.5-5.1) Chloride Level 105 mmol/L (98-107) Carbon Dioxide Level 32 mmol/L (21-32) Anion Gap 7 (6-14) Blood Urea Nitrogen 17 mg/dL (7-20) Creatinine 1.4 mg/dL (0.6-1.0) Estimated GFR (Cockcroft-Gault) 46.1 Glucose Level 90 mg/dL (70-99) Calcium Level 8.7 mg/dL (8.5-10.1) Magnesium Level 2.4 mg/dL (1.8-2.4) Test 01/11/21 05:45 01/11/21 07:28 Glucose (Fingerstick) 83 mg/dL (70-99) O2 Saturation 99 % (92-99) Arterial Blood pH 7.48 (7.35-7.45) Arterial Blood pCO2 at Patient Temp 46 mmHg (35-46) Arterial Blood pO2 at Patient Temp 137 mmHg (65-108) Arterial Blood HCO3 33 mmol/L (21-28) Arterial Blood Base Excess 9 mmol/L (-3-3) FiO2 40% vent Assessment and Plan Assessmemt and Plan Problems Medical Problems: (1) Acute renal failure Status: Acute (2) Altered mental status Status: Acute (3) Aspiration pneumonia Status: Acute (4) Hyperkalemia Status: Acute (5) Respiratory failure Status: Acute (6) Sepsis Status: Acute Comment Review of Relevant I have reviewed the following items shady (where applicable) has been applied. Medications: Current Medications Medications (Trade) Dose Ordered Sig/Lui Route PRN Reason Start Time Stop Time Status Last Admin Dose Admin Furosemide (Lasix) 40 mg 1X ONCE IVP 01/10/21 17:45 01/10/21 17:46 DC 01/10/21 17:48 Potassium Bicarbonate (Potassium Effervescent Tablet) 40 meq 1X ONCE PEG 01/10/21 19:00 01/10/21 19:01 DC 01/10/21 19:15 Justifications for Admission Other Justification cardiac arrest DANY CORTES MD Jan 11, 2021 08:25
--- NOTE | 2021-01-11 08:32 | PDOC ---
PULMONARY PROGRESS NOTES DATE: 01/11/21 TIME: 08:32 Subjective unresponsive, has brain stem reflexes Remains on vent support no overnight concerns Vitals Vital Signs Date Time Temp Pulse Resp B/P (MAP) Pulse Ox O2 Delivery O2 Flow Rate FiO2 01/11/21 08:00 99.0 65 18 142/64 (90) 100 Ventilator 99.0 Comments unable to obtain 2/2 clinical state HEENT: Other (nc at perrl nose clear orally intubated neck no lad no thyromegaly ) Lungs: Crackles Cardiovascular: S1, S2 Abdomen: Soft, Non-tender, Other (no mass obese) Extremities: Other (edema) Skin: Warm Labs Laboratory Tests Test 01/09/21 11:34 01/09/21 17:21 01/10/21 00:14 01/10/21 06:15 Glucose (Fingerstick) 113 mg/dL (70-99) 116 mg/dL (70-99) 125 mg/dL (70-99) White Blood Count 6.9 x10^3/uL (4.0-11.0) Red Blood Count 3.85 x10^6/uL (3.50-5.40) Hemoglobin 9.5 g/dL (12.0-15.5) Hematocrit 29.9 % (36.0-47.0) Mean Corpuscular Volume 78 fL (79-100) Mean Corpuscular Hemoglobin 25 pg (25-35) Mean Corpuscular Hemoglobin Concent 32 g/dL (31-37) Red Cell Distribution Width 15.8 % (11.5-14.5) Platelet Count 186 x10^3/uL (140-400) Neutrophils (%) (Auto) 75 % (31-73) Lymphocytes (%) (Auto) 10 % (24-48) Monocytes (%) (Auto) 12 % (0-9) Eosinophils (%) (Auto) 3 % (0-3) Basophils (%) (Auto) 0 % (0-3) Neutrophils # (Auto) 5.2 x10^3/uL (1.8-7.7) Lymphocytes # (Auto) 0.7 x10^3/uL (1.0-4.8) Monocytes # (Auto) 0.8 x10^3/uL (0.0-1.1) Eosinophils # (Auto) 0.2 x10^3/uL (0.0-0.7) Basophils # (Auto) 0.0 x10^3/uL (0.0-0.2) Sodium Level 145 mmol/L (136-145) Potassium Level 3.1 mmol/L (3.5-5.1) Chloride Level 107 mmol/L (98-107) Carbon Dioxide Level 29 mmol/L (21-32) Anion Gap 9 (6-14) Blood Urea Nitrogen 14 mg/dL (7-20) Creatinine 1.2 mg/dL (0.6-1.0) Estimated GFR (Cockcroft-Gault) 55.1 Glucose Level 117 mg/dL (70-99) Calcium Level 8.7 mg/dL (8.5-10.1) Magnesium Level 2.5 mg/dL (1.8-2.4) Test 01/10/21 06:16 01/10/21 08:00 01/10/21 11:38 01/10/21 17:33 Glucose (Fingerstick) 122 mg/dL (70-99) 82 mg/dL (70-99) 87 mg/dL (70-99) O2 Saturation 99 % (92-99) Arterial Blood pH 7.47 (7.35-7.45) Arterial Blood pCO2 at Patient Temp 40 mmHg (35-46) Arterial Blood pO2 at Patient Temp 129 mmHg (65-108) Arterial Blood HCO3 29 mmol/L (21-28) Arterial Blood Base Excess 5 mmol/L (-3-3) FiO2 40% +5 Test 01/10/21 23:53 01/11/21 05:00 01/11/21 05:45 01/11/21 07:28 Glucose (Fingerstick) 95 mg/dL (70-99) 83 mg/dL (70-99) Sodium Level 144 mmol/L (136-145) Potassium Level 3.9 mmol/L (3.5-5.1) Chloride Level 105 mmol/L (98-107) Carbon Dioxide Level 32 mmol/L (21-32) Anion Gap 7 (6-14) Blood Urea Nitrogen 17 mg/dL (7-20) Creatinine 1.4 mg/dL (0.6-1.0) Estimated GFR (Cockcroft-Gault) 46.1 Glucose Level 90 mg/dL (70-99) Calcium Level 8.7 mg/dL (8.5-10.1) Magnesium Level 2.4 mg/dL (1.8-2.4) O2 Saturation 99 % (92-99) Arterial Blood pH 7.48 (7.35-7.45) Arterial Blood pCO2 at Patient Temp 46 mmHg (35-46) Arterial Blood pO2 at Patient Temp 137 mmHg (65-108) Arterial Blood HCO3 33 mmol/L (21-28) Arterial Blood Base Excess 9 mmol/L (-3-3) FiO2 40% vent Laboratory Tests Test 01/10/21 11:38 01/10/21 17:33 01/10/21 23:53 01/11/21 05:00 Glucose (Fingerstick) 82 mg/dL (70-99) 87 mg/dL (70-99) 95 mg/dL (70-99) Sodium Level 144 mmol/L (136-145) Potassium Level 3.9 mmol/L (3.5-5.1) Chloride Level 105 mmol/L (98-107) Carbon Dioxide Level 32 mmol/L (21-32) Anion Gap 7 (6-14) Blood Urea Nitrogen 17 mg/dL (7-20) Creatinine 1.4 mg/dL (0.6-1.0) Estimated GFR (Cockcroft-Gault) 46.1 Glucose Level 90 mg/dL (70-99) Calcium Level 8.7 mg/dL (8.5-10.1) Magnesium Level 2.4 mg/dL (1.8-2.4) Test 01/11/21 05:45 01/11/21 07:28 Glucose (Fingerstick) 83 mg/dL (70-99) O2 Saturation 99 % (92-99) Arterial Blood pH 7.48 (7.35-7.45) Arterial Blood pCO2 at Patient Temp 46 mmHg (35-46) Arterial Blood pO2 at Patient Temp 137 mmHg (65-108) Arterial Blood HCO3 33 mmol/L (21-28) Arterial Blood Base Excess 9 mmol/L (-3-3) FiO2 40% vent Medications Active Scripts Medications Dose Route/Sig Max Daily Dose Days Date Category Dose Instructions Voltaren (Diclofenac Sodium) 100 Gm Gel..gram. 1 Gm TP QID 30 12/10/20 Reported apply to affected area(s) Oxycodone Hcl 5 Mg Capsule 5 Mg PO PRN Q6HRS PRN 12/08/20 Reported Nystatin 15 Gm Powder 1 [place]io TP BID 7 12/08/20 Reported apply to affected area(s) Ondansetron Odt (Ondansetron) 4 Mg Tab.rapdis 1 Tab PO PRN Q8HRS PRN 11/05/20 Reported Reglan (Metoclopramide Hcl) 10 Mg Tablet 1 Tab PO QID 30 11/05/20 Reported before food and bedtime Pantoprazole Sodium (Pantoprazole Sodium) 40 Mg Tablet.dr 40 Mg PO BIDAC 30 06/21/20 Rx Losartan Potassium 100 Mg Tablet 100 Mg PO DAILY 05/03/20 Reported Aspirin 325 Mg Tablet 1 Tab PO DAILY 05/03/20 Reported Metformin Hcl 500 Mg Tablet 500 Mg PO BIDWMEALS 05/03/20 Reported Bumetanide 1 Mg Tablet 1 Mg PO BID 04/02/20 Reported Insulin Aspart 100 Unit/1 Ml Vial 60 Unit SQ TIDAC 04/02/20 Reported novolg flex pen Isosorbide Mononitrate Er (Isosorbide Mononitrate) 120 Mg Tab.er.24h 120 Mg PO DAILY 04/02/20 Reported NITROGLYCERIN SubLingual (Nitroglycerin) 0.4 Mg Tab.subl 0.4 Mg SL PRN Q5MIN PRN 04/02/20 Reported Albuterol Sulfate Neb Soln (Albuterol Sulfate) 2.5 Mg/3 Ml Vial.neb 2.5 Mg NEB Q4-6HRS PRN 04/02/20 Reported Levemir Flextouch (Insulin Detemir) 100 Unit/1 Ml Insuln.pen 60 Unit SQ HS 04/02/20 Reported Hydralazine Hcl 25 Mg Tablet 25 Mg PO BID 04/02/20 Reported Fluticasone Propionate Nasal Wayne (Fluticasone Propionate) 16 Gm Wayne.susp 2 Wayne NS DAILY 06/18/19 Reported Zolpidem Tartrate 5 Mg Tablet 5 Mg PO PRN QHS PRN 06/18/19 Reported Amlodipine Besylate 10 Mg Tablet 10 Mg PO DAILY 06/18/19 Reported Gabapentin 600 Mg Tablet 600 Mg PO BID 06/18/19 Reported Potassium Chloride (Potassium Chloride) 20 Meq Tablet.er 20 Meq PO BID 06/18/19 Reported Clopidogrel (Clopidogrel Bisulfate) 75 Mg Tablet 75 Mg PO DAILYWBKFT 75 11/10/17 Rx Proair Respiclick (Albuterol Sulfate) 90 Mcg Aer.pow.ba 2 Puff IH PRN Q4-6HRS PRN 09/08/16 Reported Cyclobenzaprine Hcl 10 Mg Tablet 1 Tab PO BID PRN 09/08/16 Reported Requip (Ropinirole Hcl) 1 Mg Tablet 1 Tab PO QHS 09/08/16 Reported Crestor (Rosuvastatin Calcium) 20 Mg Tablet 20 Mg PO HS 10/02/15 Reported LAST DOSE: 10/01/15 BEDTIME NEXT DOSE: 10/02/15 BEDTIME Oxybutynin Chloride 5 Mg Tablet 1 Tab PO DAILY 10/02/15 Reported LAST DOSE: 10/02/15 AM NEXT DOSE: 10/03/15 AM Comments CXR 01/10/21 IMPRESSION: Resolution of left pleural effusion. Unchanged bilateral opacities. CXR 01/07 IMPRESSION: 1. Diffuse interstitial prominence may be seen with interstitial pulmonary edema or atypical infectious/inflammatory process. 2. Support lines and tubes as above. 3. Mild cardiomegaly. Impression . 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 Echo 12/2019 with LVEF 45%, improved on cath on 12/07 Coronary artery disease with recent -- cath 12/07 showed patent long stented proximal to distal LAD. No lesions needing intervention were noted. Echo with LVEF 55 to 60%. Type 2 diabetes. Chronic obstructive pulmonary disease. Morbid obesity. Hypertension. Obstructive sleep apnea. MIRIAM cr trending down Plan . UPDATED 01/11/21 Continue current vent support A/C 16/450/5/40% ABG/CXR-- reviewed -- reduce Fi02 to 35% Follow ID recs-- ABX for aspiration PNA, Follow Cultures,Sputum culture positive for staph aureus-- 01/06 BC NGTD Follow cardiology recs-- Follow Nephrology recs--worsening renal function today Follow neurology recs--no plans for further testing at this time Nutritional Support DVT/GI PPX-- Sub Q heparin D/W RN and RT D/W Family, poor prognosis, pt. remains a FULL CODE UPDATED 01/10/21 Continue current vent support 40% and PEEP of 5 ABG/CXR-- reviewed -- will give X1 dose of lasix today Follow ID recs-- ABX for aspiration PNA, Follow Cultures,Sputum culture positive for staph aureus-- / BC NGTD Follow cardiology recs-- Follow Nephrology recs Follow neurology recs--S/P EEG, pt. 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 Follow Nephrology recs Follow neurology recs-- anoxic brain injury/not brain /seizures-=- no further workup at this time --poor prognosis Nutritional Support DVT/GI PPX-- Sub Q heparin D/W RN and RT Dr.riffle Marroquin/Corey Family in regards to goals or care Updated 01/08 Continue current support Follow neurology input, EEG performed today Dr. 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 Follow Nephrology recs -- MIRIAM with improving renal function -- IVF Follow neurology recs-- anoxic brain injury/not brain --poor prognosis Nutritional Support DVT/GI PPX-- Sub Q heparin D/W RN and RT PLAN: 1. cont vent support setting reviewed, abg reviewed, personally decreased rr to 16 not alert enough to do sbt off sedation 2. cont antibiotics. 3. Monitor blood sugars. 4. Neurology consulted for questionable seizures. on anti sz meds 5. elevate hob 6. DVT and GI prophylaxis. 7. follow Cardiology rec, p.r.n. hydralazine for elevated blood pressure. 8. has le edema, le venous doppler no dvt discussed w rn rt RAF CADET MD Jan 11, 2021 08:32
--- NOTE | 2021-01-11 09:18 | PDOC ---
PROGRESS NOTES Date of Service DATE: 01/11/21 TIME: 09:16 Assessment Problems Medical Problems: (1) Acute renal failure Status: Acute (2) Altered mental status Status: Acute (3) Aspiration pneumonia Status: Acute (4) Hyperkalemia Status: Acute (5) Respiratory failure Status: Acute (6) Sepsis Status: Acute Metabolic encephalopathy, only has basic brainstem reflexes PLEDS and burst-suppression on EEG Respiratory failure, aspiration pneumonia, possible sepsis Acute STEMI, coronary artery disease status post stenting, chronic obstructive pulmonary disease, asthma, congestive heart failure, morbid obesity, renal failure, hyperkalemia, severe protein malnutrition, hypertensive urgency, hyperlipidemia, type 2 diabetes, obstructive sleep apnea, restless leg syndrome, peripheral neuropathy Plan Awaiting DNR decision from family. I have already spoken to patient's sister and daughter, son Lance appears to be the only obstruction to moving things along here. Today, I talked to Merry, who shares a grandchild with the patient. Continue treating medical issues Aggressive treatment of the seizure activity is unlikely to affect outcome and would cloud the examination Overall prognosis is poor, but patient is not brain Subjective None Objective Vital Signs Date Time Temp Pulse Resp B/P (MAP) Pulse Ox O2 Delivery O2 Flow Rate FiO2 01/11/21 09:03 99 Ventilator 01/11/21 08:00 99.0 65 18 142/64 (90) 99.0 Intake and Output 01/11/21 07:00 Intake Total 2498 ml Output Total 2035 ml Balance 463 ml Intake IV Total 275 ml Tube Feeding 1888 ml Other 335 ml Output Urine Total 2035 ml PHYSICAL EXAM Has been off sedation since 01/05, no response to pain Triggers ventilator Does have myoclonic movements of right hand Pupils unreactive EOMI. roving eye movements CN: no focal findings. Muscle tone: normal. Muscle strength: No response DTR: 1+ Plantar reflex: Silent Gait: not examined Sensory exam: Not cooperative. Cerebellar: Not cooperative Review of Relevant I have reviewed the following items shady (where applicable) has been applied. Labs Laboratory Tests Test 01/09/21 11:34 01/09/21 17:21 01/10/21 00:14 01/10/21 06:15 Glucose (Fingerstick) 113 mg/dL (70-99) 116 mg/dL (70-99) 125 mg/dL (70-99) White Blood Count 6.9 x10^3/uL (4.0-11.0) Red Blood Count 3.85 x10^6/uL (3.50-5.40) Hemoglobin 9.5 g/dL (12.0-15.5) Hematocrit 29.9 % (36.0-47.0) Mean Corpuscular Volume 78 fL (79-100) Mean Corpuscular Hemoglobin 25 pg (25-35) Mean Corpuscular Hemoglobin Concent 32 g/dL (31-37) Red Cell Distribution Width 15.8 % (11.5-14.5) Platelet Count 186 x10^3/uL (140-400) Neutrophils (%) (Auto) 75 % (31-73) Lymphocytes (%) (Auto) 10 % (24-48) Monocytes (%) (Auto) 12 % (0-9) Eosinophils (%) (Auto) 3 % (0-3) Basophils (%) (Auto) 0 % (0-3) Neutrophils # (Auto) 5.2 x10^3/uL (1.8-7.7) Lymphocytes # (Auto) 0.7 x10^3/uL (1.0-4.8) Monocytes # (Auto) 0.8 x10^3/uL (0.0-1.1) Eosinophils # (Auto) 0.2 x10^3/uL (0.0-0.7) Basophils # (Auto) 0.0 x10^3/uL (0.0-0.2) Sodium Level 145 mmol/L (136-145) Potassium Level 3.1 mmol/L (3.5-5.1) Chloride Level 107 mmol/L (98-107) Carbon Dioxide Level 29 mmol/L (21-32) Anion Gap 9 (6-14) Blood Urea Nitrogen 14 mg/dL (7-20) Creatinine 1.2 mg/dL (0.6-1.0) Estimated GFR (Cockcroft-Gault) 55.1 Glucose Level 117 mg/dL (70-99) Calcium Level 8.7 mg/dL (8.5-10.1) Magnesium Level 2.5 mg/dL (1.8-2.4) Test 01/10/21 06:16 01/10/21 08:00 01/10/21 11:38 01/10/21 17:33 Glucose (Fingerstick) 122 mg/dL (70-99) 82 mg/dL (70-99) 87 mg/dL (70-99) O2 Saturation 99 % (92-99) Arterial Blood pH 7.47 (7.35-7.45) Arterial Blood pCO2 at Patient Temp 40 mmHg (35-46) Arterial Blood pO2 at Patient Temp 129 mmHg (65-108) Arterial Blood HCO3 29 mmol/L (21-28) Arterial Blood Base Excess 5 mmol/L (-3-3) FiO2 40% +5 Test 01/10/21 23:53 01/11/21 05:00 01/11/21 05:45 01/11/21 07:28 Glucose (Fingerstick) 95 mg/dL (70-99) 83 mg/dL (70-99) Sodium Level 144 mmol/L (136-145) Potassium Level 3.9 mmol/L (3.5-5.1) Chloride Level 105 mmol/L (98-107) Carbon Dioxide Level 32 mmol/L (21-32) Anion Gap 7 (6-14) Blood Urea Nitrogen 17 mg/dL (7-20) Creatinine 1.4 mg/dL (0.6-1.0) Estimated GFR (Cockcroft-Gault) 46.1 Glucose Level 90 mg/dL (70-99) Calcium Level 8.7 mg/dL (8.5-10.1) Magnesium Level 2.4 mg/dL (1.8-2.4) O2 Saturation 99 % (92-99) Arterial Blood pH 7.48 (7.35-7.45) Arterial Blood pCO2 at Patient Temp 46 mmHg (35-46) Arterial Blood pO2 at Patient Temp 137 mmHg (65-108) Arterial Blood HCO3 33 mmol/L (21-28) Arterial Blood Base Excess 9 mmol/L (-3-3) FiO2 40% vent Laboratory Tests Test 01/10/21 11:38 01/10/21 17:33 01/10/21 23:53 01/11/21 05:00 Glucose (Fingerstick) 82 mg/dL (70-99) 87 mg/dL (70-99) 95 mg/dL (70-99) Sodium Level 144 mmol/L (136-145) Potassium Level 3.9 mmol/L (3.5-5.1) Chloride Level 105 mmol/L (98-107) Carbon Dioxide Level 32 mmol/L (21-32) Anion Gap 7 (6-14) Blood Urea Nitrogen 17 mg/dL (7-20) Creatinine 1.4 mg/dL (0.6-1.0) Estimated GFR (Cockcroft-Gault) 46.1 Glucose Level 90 mg/dL (70-99) Calcium Level 8.7 mg/dL (8.5-10.1) Magnesium Level 2.4 mg/dL (1.8-2.4) Test 01/11/21 05:45 01/11/21 07:28 Glucose (Fingerstick) 83 mg/dL (70-99) O2 Saturation 99 % (92-99) Arterial Blood pH 7.48 (7.35-7.45) Arterial Blood pCO2 at Patient Temp 46 mmHg (35-46) Arterial Blood pO2 at Patient Temp 137 mmHg (65-108) Arterial Blood HCO3 33 mmol/L (21-28) Arterial Blood Base Excess 9 mmol/L (-3-3) FiO2 40% vent Microbiology 01/06/21 Blood Culture - Preliminary, Resulted NO GROWTH AFTER 4 DAYS 01/05/21 Gram Stain Evaluation - Final, Complete 01/05/21 Respiratory Culture - Final, Complete 01/05/21 Antimicrobic Susceptibility - Final, Complete 01/04/21 Urine Culture - Final, Complete Medications Current Medications Amiodarone HCl 450 mg/Dextrose 259 ml @ 33 mls/hr 1X ONCE IV Last administered on 01/04/21at 11:40; Start 01/04/21 at 11:15; Stop 01/04/21 at 19:05; Status DC Midazolam HCl 100 ml @ 1 mls/hr 1X ONCE IV Last administered on 01/04/21at 11:39; Start 01/04/21 at 11:30; Stop 01/05/21 at 09:51; Status DC Sodium Chloride 1,000 ml @ 1,000 mls/hr 1X ONCE IV Last administered on 01/04/21at 12:13; Start 01/04/21 at 11:45; Stop 01/04/21 at 12:44; Status DC Sodium Bicarbonate (Sodium Bicarb Adult 8.4% Syr) 50 meq 1X ONCE IV Last administered on 01/04/21at 12:55; Start 01/04/21 at 12:00; Stop 01/04/21 at 12:01; Status DC Dextrose (Dextrose 50%-Water Syringe) 25 gm 1X ONCE IV Last administered on 01/04/21at 12:53; Start 01/04/21 at 12:00; Stop 01/04/21 at 12:01; Status DC Insulin Human Regular (HumuLIN R VIAL) 10 unit 1X ONCE IV Last administered on 01/04/21at 12:52; Start 01/04/21 at 12:00; Stop 01/04/21 at 12:01; Status DC Piperacillin Sod/ Tazobactam Sod 3.375 gm/Sodium Chloride 50 ml @ 100 mls/hr 1X ONCE IV Last administered on 01/04/21at 12:12; Start 01/04/21 at 12:00; Stop 01/04/21 at 12:29; Status DC Succinylcholine Chloride (Anectine) 100 mg 1X ONCE IV Last administered on 01/04/21at 11:03; Start 01/04/21 at 12:45; Stop 01/04/21 at 12:46; Status DC Etomidate (Amidate) 20 mg 1X ONCE IV Last administered on 01/04/21at 11:02; Start 01/04/21 at 12:45; Stop 01/04/21 at 12:46; Status DC Rocuronium Skytop (Zemuron) 100 mg 1X ONCE IV ; Start 01/04/21 at 12:45; Stop 01/04/21 at 12:46; Status Cancel Midazolam HCl (Versed) 5 mg 1X ONCE IV Last administered on 01/04/21at 11:30; Start 01/04/21 at 12:45; Stop 01/04/21 at 12:46; Status DC Rocuronium [place] (Zemuron) 100 mg 1X ONCE IV Last administered on 01/04/21at 11:33; Start 01/04/21 at 12:45; Stop 01/04/21 at 12:46; Status DC Ondansetron HCl (Zofran) 4 mg PRN Q8HRS PRN IV NAUSEA/VOMITING; Start 01/04/21 at 13:00; Stop 01/05/21 at 09:48; Status DC Sodium Chloride 1,000 ml @ 100 mls/hr Q10H IV Last administered on 01/05/21at 09:41; Start 01/04/21 at 13:00; Stop 01/05/21 at 12:59; Status DC Ondansetron HCl (Zofran) 4 mg PRN Q6HRS PRN IVP NAUSEA/VOMITING; Start 01/04/21 at 14:00 Famotidine (Pepcid Vial) 20 mg QHS IVP Last administered on 01/10/21at 21:07; Start 01/04/21 at 21:00 Heparin Sodium (Porcine) (Heparin Sodium) 5,000 unit Q8HRS SQ Last administered on 01/11/21at 05:46; Start 01/04/21 at 14:00 Sodium Chloride (Normal Saline Flush) 3 ml QSHIFT PRN IV AFTER MEDS AND BLOOD DRAWS; Start 01/04/21 at 14:00 Bisacodyl (Dulcolax Supp) 10 mg PRN DAILY PRN CO CONSTIPATION; Start 01/04/21 at 14:00 Piperacillin Sod/ Tazobactam Sod (Zosyn Per Pharmacy) 1 each PRN DAILY PRN MC SEE COMMENTS; Start 01/04/21 at 14:00; Stop 01/04/21 at 17:48; Status DC Piperacillin Sod/ Tazobactam Sod 2.25 gm/Sodium Chloride 50 ml @ 100 mls/hr Q6HRS IV ; Start 01/04/21 at 18:00; Stop 01/04/21 at 17:49; Status DC Dextrose (Dextrose 50%-Water Syringe) 25 gm 1X ONCE IV Last administered on 01/04/21at 16:21; Start 01/04/21 at 16:15; Stop 01/04/21 at 16:16; Status DC Meropenem 500 mg/ Sodium Chloride 50 ml @ 100 mls/hr Q8HRS IV ; Start 01/04/21 at 18:00; Status Cancel Piperacillin Sod/ Tazobactam Sod 2.25 gm/Sodium Chloride 50 ml @ 100 mls/hr Q8HRS IV Last administered on 01/08/21at 06:01; Start 01/04/21 at 22:00; Stop 01/08/21 at 07:50; Status DC Linezolid/Dextrose 300 ml @ 300 mls/hr Q12HR IV Last administered on 01/07/21at 21:23; Start 01/04/21 at 21:00; Stop 01/08/21 at 10:41; Status DC Valproic Acid 500 mg/Dextrose 55 ml @ 55 mls/hr Q12HR IV Last administered on 01/05/21at 09:40; Start 01/05/21 at 09:00; Stop 01/05/21 at 17:28; Status DC Valproic Acid 1000 mg/Dextrose 60 ml @ 60 mls/hr 1X ONCE IV Last administered on 01/04/21at 19:30; Start 01/04/21 at 19:30; Stop 01/04/21 at 20:29; Status DC Lorazepam (Ativan Inj) 2 mg PRN Q2HRS PRN IVP ANXIETY / AGITATION Last administered on 01/05/21at 23:30; Start 01/04/21 at 19:30; Stop 01/08/21 at 08:16; Status DC Hydralazine HCl (Apresoline Inj) 10 mg PRN Q6HRS PRN IVP ELEVATED BP, SEE COMMENTS Last administered on 01/10/21at 13:25; Start 01/04/21 at 19:45 Amiodarone HCl 450 mg/Dextrose 259 ml @ 33 mls/hr CONT PRN IV SEE I/O RECORD Last administered on 01/05/21at 11:50; Start 01/04/21 at 20:15; Stop 01/05/21 at 11:50; Status DC Midazolam HCl 100 ml @ 1 mls/hr CONT PRN IV SEE I/O RECORD Last administered on 01/05/21at 02:00; Start 01/05/21 at 02:00; Stop 01/08/21 at 08:16; Status DC Daptomycin 600 mg/ Sodium Chloride 50 ml @ 100 mls/hr Q48H IV Last administered on 01/07/21at 15:40; Start 01/05/21 at 16:00; Stop 01/08/21 at 07:52; Status DC Scopolamine (Transderm-Scop) 1 patch Q3DAYS TD Last administered on 01/08/21at 08:08; Start 01/05/21 at 17:00; Stop 01/08/21 at 08:16; Status DC Valproic Acid 750 mg/Dextrose 57.5 ml @ 57.5 mls/hr Q12HR IV Last administered on 01/11/21at 07:59; Start 01/05/21 at 21:00 Insulin Human Lispro (HumaLOG) 0-5 UNITS TIDWMEALS SQ Last administered on 01/05/21at 18:27; Start 01/05/21 at 18:30; Stop 01/06/21 at 08:42; Status DC Dextrose (Dextrose 50%-Water Syringe) 12.5 gm PRN Q15MIN PRN IV SEE COMMENTS; Start 01/05/21 at 18:15 Amiodarone HCl 450 mg/Dextrose 259 ml @ 0 mls/hr 1X ONCE IV Last administered on 01/06/21at 02:00; Start 01/06/21 at 02:00; Stop 01/06/21 at 02:01; Status DC Insulin Human Lispro (HumaLOG) 0-5 UNITS Q6HRS SQ ; Start 01/06/21 at 12:00 Amiodarone HCl 450 mg/Dextrose 259 ml @ 0 mls/hr 1X ONCE IV Last administered on 01/06/21at 17:05; Start 01/06/21 at 17:00; Stop 01/06/21 at 17:01; Status DC Amiodarone HCl (Cordarone) 400 mg DAILY PO ; Start 01/07/21 at 14:00; Stop 01/07/21 at 13:15; Status DC Multi-Ingred Cream/Lotion/Oil/ Oint (Artificial Tears Eye Ointment) 1 chio PRN Q1HR PRN OU DRY EYE Last administered on 01/07/21at 14:14; Start 01/07/21 at 13:00 Aspirin (Blessing Aspirin) 325 mg DAILY PO Last administered on 01/08/21at 08:12; Start 01/08/21 at 09:00; Stop 01/09/21 at 09:16; Status DC Clopidogrel Bisulfate (Plavix) 75 mg DAILYWBKFT PO Last administered on 01/11/21at 07:57; Start 01/08/21 at 08:00 Hydralazine HCl (Apresoline) 25 mg BID PO Last administered on 01/11/21at 07:57; Start 01/07/21 at 21:00 Metoprolol Succinate (Toprol Xl) 25 mg DAILY PO ; Start 01/08/21 at 09:00; Stop 01/08/21 at 07:44; Status DC Isosorbide Mononitrate (Imdur) 120 mg DAILY PO ; Start 01/08/21 at 09:00; Stop 01/08/21 at 08:16; Status DC Losartan Potassium (Cozaar) 100 mg DAILY PO Last administered on 01/11/21at 07:59; Start 01/08/21 at 09:00 Atorvastatin Calcium (Lipitor) 80 mg QHS PO Last administered on 01/10/21at 21:07; Start 01/07/21 at 21:00 Epinephrine HCl (EPINEPHrine SYRINGE) 2 mg STK-MED ONCE .ROUTE ; Start 01/04/21 at 11:00; Stop 01/07/21 at 17:12; Status DC Amiodarone HCl (Cordarone) 300 mg STK-MED ONCE .ROUTE ; Start 01/04/21 at 11:00; Stop 01/07/21 at 17:12; Status DC Metoprolol Tartrate (Lopressor) 12.5 mg BID PO Last administered on 01/11/21at 07:58; Start 01/08/21 at 09:00 Piperacillin Sod/ Tazobactam Sod 3.375 gm/Sodium Chloride 50 ml @ 100 mls/hr Q6HRS IV Last administered on 01/11/21at 05:46; Start 01/08/21 at 12:00 Daptomycin 600 mg/ Sodium Chloride 50 ml @ 100 mls/hr Q24H IV Last administered on 01/10/21at 16:02; Start 01/08/21 at 16:00 Isosorbide Mononitrate (Ismo) 20 mg BID92 PO Last administered on 01/11/21at 07:58; Start 01/08/21 at 09:00 Aspirin (Aspirin Chewable) 81 mg [id number] PO Last administered on 01/11/21at 07:58; Start 01/08/21 at 08:30 Glycopyrrolate (Robinul) 1 mg PRN DAILY PRN IV Secretions Last administered on 01/10/21at 08:43; Start 01/08/21 at 08:45 Potassium Chloride/Water 100 ml @ 100 mls/hr Q1H IV Last administered on 01/08/21at 13:37; Start 01/08/21 at 12:00; Stop 01/08/21 at 13:59; Status DC Potassium Bicarbonate (Potassium Effervescent Tablet) 40 meq 1X ONCE PEG Last administered on 01/09/21at 11:02; Start 01/09/21 at 09:30; Stop 01/09/21 at 09:31; Status DC Potassium Bicarbonate (Potassium Effervescent Tablet) 40 meq 1X ONCE PO Last administered on 01/10/21at 07:19; Start 01/10/21 at 08:00; Stop 01/10/21 at 08:0 1; Status DC Furosemide (Lasix) 40 mg 1X ONCE IVP Last administered on 01/10/21at 17:48; Start 01/10/21 at 17:45; Stop 01/10/21 at 17:46; Status DC Potassium Bicarbonate (Potassium Effervescent Tablet) 40 meq 1X ONCE PEG Last administered on 01/10/21at 19:15; Start 01/10/21 at 19:00; Stop 01/10/21 at 19:01; Status DC Active Scripts Active Promethazine Hcl 12.5 Mg Tablet 12.5 Mg PO PRN Q6HRS PRN 30 Days Metoprolol Succinate ( Xl ) (Metoprolol Succinate) 25 Mg Tab.er.24h 25 Mg PO DAILY 30 Days Pantoprazole Sodium (Pantoprazole Sodium) 40 Mg Tablet.dr 40 Mg PO BIDAC 30 Days Clopidogrel (Clopidogrel Bisulfate) 75 Mg Tablet 75 Mg PO DAILYWBKFT 75 Days Reported Voltaren (Diclofenac Sodium) 100 Gm Gel..gram. 1 Gm TP QID 30 Days apply to affected area(s) Nystatin 15 Gm Powder 1 Chio TP BID 7 Days apply to affected area(s) Ondansetron Odt (Ondansetron) 4 Mg Tab.rapdis 1 Tab PO PRN Q8HRS PRN Reglan (Metoclopramide Hcl) 10 Mg Tablet 1 Tab PO QID 30 Days before food and bedtime Losartan Potassium 100 Mg Tablet 100 Mg PO DAILY Aspirin 325 Mg Tablet 1 Tab PO DAILY Metformin Hcl 500 Mg Tablet 500 Mg PO BIDWMEALS Bumetanide 1 Mg Tablet 1 Mg PO BID Insulin Aspart 100 Unit/1 Ml Vial 60 Unit SQ TIDAC novolg flex pen Isosorbide Mononitrate Er (Isosorbide Mononitrate) 120 Mg Tab.er.24h 120 Mg PO DAILY NITROGLYCERIN SubLingual (Nitroglycerin) 0.4 Mg Tab.subl 0.4 Mg SL PRN Q5MIN PRN Albuterol Sulfate Neb Soln (Albuterol Sulfate) 2.5 Mg/3 Ml Vial.neb 2.5 Mg NEB Q4-6HRS PRN Levemir Flextouch (Insulin Detemir) 100 Unit/1 Ml Insuln.pen 60 Unit SQ HS Hydralazine Hcl 25 Mg Tablet 25 Mg PO BID Fluticasone Propionate Nasal [place] (Fluticasone Propionate) 16 Gm [place].susp 2 [place] NS DAILY Zolpidem Tartrate 5 Mg Tablet 5 Mg PO PRN QHS PRN Amlodipine Besylate 10 Mg Tablet 10 Mg PO DAILY Gabapentin 600 Mg Tablet 600 Mg PO BID Potassium Chloride (Potassium Chloride) 20 Meq Tablet.er 20 Meq PO BID Proair Respiclick (Albuterol Sulfate) 90 Mcg Aer.pow.ba 2 Puff IH PRN Q4-6HRS PRN Cyclobenzaprine Hcl 10 Mg Tablet 1 Tab PO BID PRN Requip (Ropinirole Hcl) 1 Mg Tablet 1 Tab PO QHS Crestor (Rosuvastatin Calcium) 20 Mg Tablet 20 Mg PO HS LAST DOSE: 10/01/15 BEDTIME NEXT DOSE: 10/02/15 BEDTIME Oxybutynin Chloride 5 Mg Tablet 1 Tab PO DAILY LAST DOSE: 10/02/15 AM NEXT DOSE: 10/03/15 AM Vitals/I & O Vital Sign - Last 24 Hours 01/10/21 01/10/21 01/10/21 01/10/21 10:00 11:00 11:04 12:00 Temp 98.6 98.6 Pulse 76 77 77 Resp 18 18 18 B/P (MAP) 138/68 (91) 144/70 (94) 162/80 (107) Pulse Ox 98 97 100 100 O2 Delivery Ventilator Ventilator Ventilator Ventilator 01/10/21 01/10/21 01/10/21 01/10/21 12:00 12:28 13:00 13:25 Pulse 78 78 Resp 18 B/P (MAP) 171/74 (106) 171/74 Pulse Ox 100 100 O2 Delivery Mechanical Ventilator Ventilator Ventilator 01/10/21 01/10/21 01/10/21 01/10/21 13:25 14:00 14:59 15:00 Pulse 78 84 87 Resp 18 18 B/P (MAP) 171/74 161/71 (101) 165/61 (95) Pulse Ox 100 100 100 O2 Delivery Ventilator Ventilator Ventilator 01/10/21 01/10/21 01/10/21 01/10/21 16:00 16:00 17:00 17:32 Temp 98.0 98.0 Pulse 81 78 Resp 18 18 B/P (MAP) 125/83 (97) 147/67 (93) Pulse Ox 99 98 98 O2 Delivery Ventilator Mechanical Ventilator Ventilator Ventilator 01/10/21 01/10/21 01/10/21 01/10/21 18:00 19:00 20:00 20:00 Temp 98.0 98.0 Pulse 80 72 70 Resp 18 18 18 B/P (MAP) 172/67 (102) 112/58 (76) 120/59 (79) Pulse Ox 98 98 99 O2 Delivery Ventilator Ventilator Mechanical Ventilator Ventilator 01/10/21 01/10/21 01/10/21 01/10/21 20:48 21:00 21:07 21:08 Pulse 70 70 70 Resp 18 B/P (MAP) 141/60 (87) 141/60 141/60 Pulse Ox 99 100 O2 Delivery Ventilator Ventilator 01/10/21 01/10/21 01/10/21 01/11/21 22:00 22:20 23:00 00:00 Pulse 68 67 Resp 18 18 B/P (MAP) 130/62 (84) 96/49 (65) Pulse Ox 100 99 98 O2 Delivery Ventilator Ventilator Ventilator Mechanical Ventilator 01/11/21 01/11/21 01/11/21 01/11/21 00:17 01:00 02:00 03:00 Temp 99.0 99.0 99.0 99.0 Pulse 66 60 63 Resp 18 18 18 B/P (MAP) 117/44 (68) 101/49 (66) 119/57 (77) Pulse Ox 99 100 100 100 O2 Delivery Ventilator Ventilator Ventilator Ventilator 01/11/21 01/11/21 01/11/21 01/11/21 03:04 03:51 04:00 05:00 Temp 99.3 99.3 Pulse 69 61 Resp 18 18 B/P (MAP) 126/63 (84) 138/54 (82) Pulse Ox 99 100 100 O2 Delivery Ventilator Mechanical Ventilator Ventilator Ventilator 01/11/21 01/11/21 01/11/21 01/11/21 05:38 06:00 07:00 07:24 Pulse 66 62 Resp 18 22 B/P (MAP) 125/55 (78) 137/70 (92) Pulse Ox 99 100 100 100 O2 Delivery Ventilator Ventilator Ventilator Ventilator 01/11/21 01/11/21 01/11/21 01/11/21 07:41 07:57 07:58 07:58 Pulse 65 65 65 B/P (MAP) 137/70 137/70 137/70 O2 Delivery Mechanical Ventilator 01/11/21 01/11/21 01/11/21 07:59 08:00 09:03 Temp 99.0 99.0 Pulse 65 65 Resp 18 B/P (MAP) 137/70 142/64 (90) Pulse Ox 100 99 O2 Delivery Ventilator Ventilator Intake and Output 01/10/21 01/10/21 01/11/21 15:00 23:00 07:00 Intake Total 940 ml 1008 ml 550 ml Output Total 560 ml 800 ml 675 ml Balance 380 ml 208 ml -125 ml Justicifation of Admission Dx: Justifications for Admission: Justification of Admission Dx: Yes SWATHI BOOTH MD Jan 11, 2021 09:17
--- NOTE | 2021-01-11 09:22 | PDOC ---
Renal-Progress Notes Subjective Notes Notes ON THE VENT History of Present Illness Hx of present illness NO ACUTE CHANGES Vitals Vitals Vital Signs Date Time Temp Pulse Resp B/P (MAP) Pulse Ox O2 Delivery O2 Flow Rate FiO2 01/11/21 09:03 99 Ventilator 01/11/21 08:00 99.0 65 18 142/64 (90) 99.0 Weight Weight [ ] I.O. Intake and Output Intake and Output 01/11/21 07:00 Intake Total 2498 ml Output Total 2035 ml Balance 463 ml Intake IV Total 275 ml Tube Feeding 1888 ml Other 335 ml Output Urine Total 2035 ml Labs Labs Laboratory Tests Test 01/10/21 11:38 01/10/21 17:33 01/10/21 23:53 01/11/21 05:00 Glucose (Fingerstick) 82 mg/dL (70-99) 87 mg/dL (70-99) 95 mg/dL (70-99) Sodium Level 144 mmol/L (136-145) Potassium Level 3.9 mmol/L (3.5-5.1) Chloride Level 105 mmol/L (98-107) Carbon Dioxide Level 32 mmol/L (21-32) Anion Gap 7 (6-14) Blood Urea Nitrogen 17 mg/dL (7-20) Creatinine 1.4 mg/dL (0.6-1.0) Estimated GFR (Cockcroft-Gault) 46.1 Glucose Level 90 mg/dL (70-99) Calcium Level 8.7 mg/dL (8.5-10.1) Magnesium Level 2.4 mg/dL (1.8-2.4) Test 01/11/21 05:45 01/11/21 07:28 Glucose (Fingerstick) 83 mg/dL (70-99) O2 Saturation 99 % (92-99) Arterial Blood pH 7.48 (7.35-7.45) Arterial Blood pCO2 at Patient Temp 46 mmHg (35-46) Arterial Blood pO2 at Patient Temp 137 mmHg (65-108) Arterial Blood HCO3 33 mmol/L (21-28) Arterial Blood Base Excess 9 mmol/L (-3-3) FiO2 40% vent Micro Micro Microbiology 01/06/21 Blood Culture - Preliminary, Resulted NO GROWTH AFTER 4 DAYS 01/05/21 Gram Stain Evaluation - Final, Complete 01/05/21 Respiratory Culture - Final, Complete 01/05/21 Antimicrobic Susceptibility - Final, Complete 01/04/21 Urine Culture - Final, Complete Review of Systems Constitutional: yes: unresponsive Physical Exam General Appearance: no apparent distress, febrile Respiratory: ventilator (Mode:A/C), decreased breath sounds Heart: S1S2 Abdomen: soft Genitourinary: bladder flat Extremities: pulses present, no edema Neurology: other (off sedation. Pupils fixed. not following commands ) Assessment Assessment IMP [id number] OF 2.4 TO 1.4 HYPERNATREMIA-IMPROVED HYPOKALEMIA-CORRECTED ACUTE RESP FAILURE PROB PNEUMONIA DM II DIONNE OBESITY BACTEREMIA SEIZURES PLAN ANTIBIOTICS ANTIBIOTICS CONT WATER FLUSHES CONT WITH TF VENT SUPPORT REMAINS CRITICALLY ILL NEUROLOGY EVAL AND TX WILL FOLLOW EFE PRICE MD Jan 11, 2021 09:22
[2021-01-11] MEDS: DAPTOmycin (GENERIC) IVPB 600 MG in IV NORMAL SALINE 50ML 50 ML IV SCH (15:56)
[2021-01-11] MEDS: FAMOTIDINE 20 MG/2 ML VIAL IVP SCH (21:11)
[2021-01-11] MEDS: ATORVASTATIN CALCIUM 40 MG TABLET. PO SCH (21:12)
[2021-01-12] VITALS (24 sets, daily range): BP systolic 126–165; BP diastolic 47–84
[2021-01-12] MEDS: INSULIN LISPRO 300 UNITS/3 ML VIAL. SQ SCH ×4 (05:25→23:50)
[2021-01-12] MEDS: PIPERACILLIN/TAZOBACTAM 3.375 GM in IV NORMAL SALINE 50ML 50 ML IV SCH ×4 (05:27→23:47)
[2021-01-12] MEDS: HEPARIN for SUB-Q USE 5,000 UNIT/ML VIAL. SQ SCH ×4 (05:28→23:51)
--- NOTE | 2021-01-12 07:26 | PDOC ---
[employer] PROGRESS NOTE Date of Service DOS: DATE: 01/12/21 TIME: 07:18 Chief Complaint Chief Complaint A/P: Respiratory failure SUSPECT aspiration pneumonia Mild prominent interstitial lung markings likely mild congestive changes or interstitial infiltrates Ventricular fib arrest - on amio CAD - Extensive stenting of the LAD with the most significant area of restenosis being a 35% lesion in the mid vessel. Mild disease in the right coronary artery. PCI to the LAD and ramus on 10/2017. Cardiac cath on 12/12/2020 with no new disease. Acute renal failure/ MIRIAM Hyperkalemia Aspiration pneumonia Altered mental status Sepsis MORBID OBESITY Severe protein malnutrition HTN urgency - Cont meds, prn IV hydralazine Hyperlipidemia - on statin DM2 - BG controlled. Will cut her lantus given NPO status. A1c 5.6 CKD3 - with MIRIAM, above DIONNE wtih CPAP - asked to bring home BIPAP in if she is extubated COPD - on chronic home O2, will continue current meds Chronic systolic CHF (reduced EF to 42% 12/2019) - cont meds. RLS Peripheral neuropathy Consult cardiology Nephrology consult ID CONSULT PULM CONSULT Neurology consult FEN - OGT feeds PPX - lovenox CODE - FULL Dispo - ICU History of Present Illness History of Present Illness Ms Castro is a 60 year old female w/ PMHx Asthma, CAD s/p stenting x6, CHF, COPD, Diabetes-Type II, High Cholesterol, Hypertension, neuropathy, morbid obesity, RLS, insomnia who presented to ER after she was brought here by EMS from home after she was found unresponsive in her bed by her family. Patient was last known normal was 9 AM on 01/03/2021. family tried to call her but could not get a hold of her so they show up to her house, found her unresponsive in her bed. Per family, patient had a CPAP machine on but the mask slid off her face, there was lot of mucus and material around her face and on her neck area. Patient was responsive to painful stimuli but was very confused, did not follow command. EMS were called, they found her in respiratory distress, GCS of 7-8, they bagged her and brought her here. Upon arrival to room, patient was unresponsive to verbal, severe respiratory distress, need emergent intubation. During the difficult intubation patient became bradycardic and CODE BLUE was initiated. Patient subsequently went into ventricular fibrillation, underwent shock therapy and was initiated on intravenous amiodarone infusion and admitted to ICU. She has been admitted to [facility] x2 for intractable nausea and vomiting and PMC once has had this as well as intense pruritis for 6 months. Was seen and treated for same in November, underwent cardiac cath and GI consultation at the time, was discharged home. Her family stated that patient was seen here 2 days prior for epigastric abdominal pain. It was recommended that she need to stay in the hospital however patient did not want to stay in the hospital so she went home. AMA. 01/05: No acute events overnight. Patient seen and examined bedside. Patient remains intubated. Without sedation. Vent settings at 18/450/40/5. Patient is not responding to painful stimuli at this time. There is a lot of secretions. Currently not on any vasopressors 01/06: No acute events overnight. Patient withdraws to pain. Still intubated with vent settings at 16/450/40/5. Not on any sedation at this time. Patient's chart, labs, images were reviewed and discussed with RN 01/07: No overnight events. Afebrile. On vent with no sedation for 48 hours FiO2 40% PEEP of 5. Not requiring vasopressors. Not making meaningful eye contact or meaningful movement. Minimal reflexes. Breathing over the vent. Discussed with son, Lance overall poor prognosis given what is likely anoxic encephalopathy. He wants to discuss with his aunt Liss and sister Camille future goals of care. 01/08: No events. Afebrile. Still with no meaningful activity no sedation on vent FiO2 40% PEEP of 5, ABG 7.45/46/142. No BM. Adequate UOP. No residuals on feeds. EEG interpreted by neurology as abnormal because of a severe diffuse disturbance of cerebral activity, consistent with a very poor prognosis from anoxic encephalopathy. 01/09: Overnight ventilated no significant activity he still off sedation. K3.2. Vent FiO2 40% PEEP of 5. Chest radiograph unchanged from prior. Right hand with new twitching, concerning for seizure activity, d/w neurology. D/w sons goals of care and grim neurologic prognosis. 01/10: No overnight events. Afebrile, K3.1. ABG 7.4 7/40/129 on 40% FiO2. CXR stable. Still with right hand tremor. Long d/w son, Lance, and his significant other. 01/11: No overnight events. Chest radiograph stable, ABG on 40% FiO2 and PEEP 5 was 7.48/46/137. Heart rate slowing down and blood pressure coming up a bit. Glucose stable. No sedating meds for over 96 hours. No meaningful interaction. Babinski reflexes demonstrated to family. Afebrile overnight. Creatinine 1.3, Hb 9.2. Having more PVCs on monitor today. On 40% FiO2 PEEP of 5. Blood pressure little elevated requiring additional IV dose of hydralazine. Still with right arm twitching and irregular mouth movement. No meaningful neurologic interaction. Attempted to call Lance, son and DPOA, no answer, voicemail full Vitals/I&O Vitals/I&O: Vital Signs Date Time Temp Pulse Resp B/P (MAP) Pulse Ox O2 Delivery O2 Flow Rate FiO2 01/12/21 06:00 72 16 144/84 (104) 99 Ventilator 01/12/21 04:00 98.8 98.8 I & O 01/11/21 01/11/21 01/12/21 15:00 23:00 07:00 Intake Total 277.5 ml 887 ml 990 ml Output Total 450 ml 275 ml 300 ml Balance -172.5 ml 612 ml 690 ml Physical Exam Physical Exam: GENERAL: Intubated, opens eyes transiently, does not follow any commands HEENT: Normocephalic, atraumatic. Tongue protruded, ETT /OGT + NECK: Supple though fullness due to body habitus. LUNGS: Decreased breath sounds. No wheezing. HEART: S1, S2. Distant heart sounds. ABDOMEN: Obese. Bowel sounds present. EXTREMITIES: Minimal edema. No cyanosis. NEUROLOGIC: Intubated,right upper extremity intermittent twitching Left IJ clean General: Other Heart: Regular rate Lungs: Crackles Abdomen: Soft Extremities: Other (Trace edema) Labs Labs: Laboratory Tests Test 01/11/21 07:28 01/11/21 11:28 01/11/21 17:27 01/11/21 23:35 O2 Saturation 99 % (92-99) Arterial Blood pH 7.48 (7.35-7.45) Arterial Blood pCO2 at Patient Temp 46 mmHg (35-46) Arterial Blood pO2 at Patient Temp 137 mmHg (65-108) Arterial Blood HCO3 33 mmol/L (21-28) Arterial Blood Base Excess 9 mmol/L (-3-3) FiO2 40% vent Glucose (Fingerstick) 110 mg/dL (70-99) 108 mg/dL (70-99) 123 mg/dL (70-99) Test 01/12/21 05:24 Glucose (Fingerstick) 106 mg/dL (70-99) Assessment and Plan Assessmemt and Plan Problems Medical Problems: (1) Acute renal failure Status: Acute (2) Altered mental status Status: Acute (3) Aspiration pneumonia Status: Acute (4) Hyperkalemia Status: Acute (5) Respiratory failure Status: Acute (6) Sepsis Status: Acute Comment Review of Relevant I have reviewed the following items shady (where applicable) has been applied. Justifications for Admission Other Justification cardiac arrest DANY CORTES MD Jan 12, 2021 07:26
[2021-01-12] MEDS: ASPIRIN CHEWABLE 81 MG TABLET. PO SCH (08:35)
[2021-01-12] MEDS: ISOSORBIDE MONONITRATE 20 MG TABLET PO SCH ×2 (08:36→13:33)
[2021-01-12] MEDS: hydrALAZINE 25 MG TABLET PO SCH ×2 (08:36→21:06)
[2021-01-12] MEDS: CLOPIDOGREL BISULFATE 75 MG TABLET PO SCH (08:36)
[2021-01-12] MEDS: METOPROLOL TART IMMED RELEASE 25 MG TABLET. PO SCH ×2 (08:36→21:00)
[2021-01-12] MEDS: LOSARTAN POTASSIUM 50 MG TABLET. PO SCH (08:37)
[2021-01-12] MEDS: GLYCOPYRROLATE 1 MG/5 ML VIAL. IV PRN (08:37)
[2021-01-12] MEDS: VALPROIC ACID (AS SODIUM SALT) 750 MG in IV DEXTROSE 5% 50 ML IV SCH ×2 (08:38→21:06)
[2021-01-12 09:00] LABS: BASO # 0.1 x10^3/uL (0.0-0.2); BASO % 1 % (0-3); EOS # 0.3 x10^3/uL (0.0-0.7); EOS % 4 % (0-3); HEMOGLOBIN 9.2 g/dL (12.0-15.5); LYMPH # 1.1 x10^3/uL (1.0-4.8); LYMPH % 14 % (24-48); MEAN CORPUSCULAR HEMOGLOBIN 25 pg (25-35); MEAN CORPUSCULAR HGB CONC 32 g/dL (31-37); MEAN CORPUSCULAR VOLUME 78 fL (79-100); MONO # 1.1 x10^3/uL (0.0-1.1); MONO % 14 % (0-9); NEUT # 5.4 x10^3/uL (1.8-7.7); NEUT % 67 % (31-73); PLATELET COUNT 186 x10^3/uL (140-400); RED BLOOD COUNT 3.73 x10^6/uL (3.50-5.40)
[2021-01-12 09:15] LABS: ALBUMIN 1.8 g/dL (3.4-5.0); ALBUMIN/GLOBULIN RATIO 0.5 (1.0-1.7); CALCIUM 8.1 mg/dL (8.5-10.1); CREATININE 1.3 mg/dL (0.6-1.0); GFR 50.2; POTASSIUM 3.7 mmol/L (3.5-5.1); TOTAL BILIRUBIN 0.2 mg/dL (0.2-1.0); TOTAL PROTEIN 5.1 g/dL (6.4-8.2)
--- NOTE | 2021-01-12 09:33 | PDOC ---
Infectious Disease Note Subjective: Subjective Intubated , Intermittent twitching of right upper extremity Patient condition remains unchanged per discussion with RN Vital Signs: Vital Signs Vital Signs Date Time Temp Pulse Resp B/P (MAP) Pulse Ox O2 Delivery O2 Flow Rate FiO2 01/12/21 09:18 100 Ventilator 01/12/21 09:00 82 12 163/68 (99) 01/12/21 08:00 98.9 98.9 Physical Exam: PHYSICAL EXAM GENERAL: Intubated, opens eyes transiently, does not follow any commands HEENT: Normocephalic, atraumatic. Tongue protruded, ETT /OGT + NECK: Supple though fullness due to body habitus. LUNGS: Decreased breath sounds. No wheezing. HEART: S1, S2. Distant heart sounds. ABDOMEN: Obese. Bowel sounds present. EXTREMITIES: Minimal edema. No cyanosis. NEUROLOGIC: Intubated,right upper extremity intermittent twitching Left IJ clean Medications: Inpatient Meds: Medications reviewed. Labs: Lab Laboratory Tests Test 01/11/21 11:28 01/11/21 17:27 01/11/21 23:35 01/12/21 05:24 Glucose (Fingerstick) 110 mg/dL (70-99) 108 mg/dL (70-99) 123 mg/dL (70-99) 106 mg/dL (70-99) Test 01/12/21 08:51 White Blood Count 8.0 x10^3/uL (4.0-11.0) Red Blood Count 3.73 x10^6/uL (3.50-5.40) Hemoglobin 9.2 g/dL (12.0-15.5) Hematocrit 29.0 % (36.0-47.0) Mean Corpuscular Volume 78 fL (79-100) Mean Corpuscular Hemoglobin 25 pg (25-35) Mean Corpuscular Hemoglobin Concent 32 g/dL (31-37) Red Cell Distribution Width 16.0 % (11.5-14.5) Platelet Count 186 x10^3/uL (140-400) Neutrophils (%) (Auto) 67 % (31-73) Lymphocytes (%) (Auto) 14 % (24-48) Monocytes (%) (Auto) 14 % (0-9) Eosinophils (%) (Auto) 4 % (0-3) Basophils (%) (Auto) 1 % (0-3) Neutrophils # (Auto) 5.4 x10^3/uL (1.8-7.7) Lymphocytes # (Auto) 1.1 x10^3/uL (1.0-4.8) Monocytes # (Auto) 1.1 x10^3/uL (0.0-1.1) Eosinophils # (Auto) 0.3 x10^3/uL (0.0-0.7) Basophils # (Auto) 0.1 x10^3/uL (0.0-0.2) Sodium Level 145 mmol/L (136-145) Potassium Level 3.7 mmol/L (3.5-5.1) Chloride Level 107 mmol/L (98-107) Carbon Dioxide Level 35 mmol/L (21-32) Anion Gap 3 (6-14) Blood Urea Nitrogen 17 mg/dL (7-20) Creatinine 1.3 mg/dL (0.6-1.0) Estimated GFR (Cockcroft-Gault) 50.2 BUN/Creatinine Ratio 13 (6-20) Glucose Level 95 mg/dL (70-99) Calcium Level 8.1 mg/dL (8.5-10.1) Total Bilirubin 0.2 mg/dL (0.2-1.0) Aspartate Amino Transf (AST/SGOT) 37 U/L (15-37) Alanine Aminotransferase (ALT/SGPT) 14 U/L (14-59) Alkaline Phosphatase 60 U/L (46-116) Total Protein 5.1 g/dL (6.4-8.2) Albumin 1.8 g/dL (3.4-5.0) Albumin/Globulin Ratio 0.5 (1.0-1.7) Objective: Assessment: 1. Fever. Resolved 2. Leukocytosis and lactic acidosis. Proving 3. Acute hypoxic respiratory failure. Status post intubation 4. Suspected aspiration pneumonia. Sputum culture positive for mssa 5. Status post cardiopulmonary arrest. 6. Questionable seizures. Encephalopathy 7. Diabetes mellitus 2. 8. Morbid obesity. 9. Obstructive sleep apnea. 10. Coronary artery disease. 11. Chronic kidney disease 12. Hypernatremia and hyperkalemia. 13 Gram-positive bacteremia bacteremia 2 out of 4 bottles present on admission staph epidermidis Plan: Plan of Care 1. Continue Zosyn , DC daptomycin 2. Follow up labs and cultures. Follow-up repeat blood cultures 01/06 negative so far 3. Continue supportive care. 4. Critically ill. 5. Prognosis poor. Discussed with nursing staff LUDY CRUZ MD Jan 12, 2021 09:33
--- NOTE | 2021-01-12 19:29 | NUR ---
noted bright red blood with clots from ET tube. called. to hold heparin sq through night.
--- NOTE | 2021-01-12 19:48 | PDOC ---
PULMONARY PROGRESS NOTES DATE: 01/12/21 TIME: 19:43 Subjective remains on unresponsive Remains on vent support no overnight concerns Vitals Vital Signs Date Time Temp Pulse Resp B/P (MAP) Pulse Ox O2 Delivery O2 Flow Rate FiO2 01/12/21 18:13 100 Ventilator 01/12/21 18:00 70 12 146/58 (87) 01/12/21 16:00 98.4 98.4 Comments unable to obtain 2/2 clinical state HEENT: Other (nc at perrl nose clear orally intubated neck no lad no thyromegaly ) Lungs: Crackles Cardiovascular: S1, S2 Abdomen: Soft, Non-tender, Other (no mass obese) Extremities: Other (edema) Skin: Warm Labs Laboratory Tests Test 01/10/21 23:53 01/11/21 05:00 01/11/21 05:45 01/11/21 07:28 Glucose (Fingerstick) 95 mg/dL (70-99) 83 mg/dL (70-99) Sodium Level 144 mmol/L (136-145) Potassium Level 3.9 mmol/L (3.5-5.1) Chloride Level 105 mmol/L (98-107) Carbon Dioxide Level 32 mmol/L (21-32) Anion Gap 7 (6-14) Blood Urea Nitrogen 17 mg/dL (7-20) Creatinine 1.4 mg/dL (0.6-1.0) Estimated GFR (Cockcroft-Gault) 46.1 Glucose Level 90 mg/dL (70-99) Calcium Level 8.7 mg/dL (8.5-10.1) Magnesium Level 2.4 mg/dL (1.8-2.4) O2 Saturation 99 % (92-99) Arterial Blood pH 7.48 (7.35-7.45) Arterial Blood pCO2 at Patient Temp 46 mmHg (35-46) Arterial Blood pO2 at Patient Temp 137 mmHg (65-108) Arterial Blood HCO3 33 mmol/L (21-28) Arterial Blood Base Excess 9 mmol/L (-3-3) FiO2 40% vent Test 01/11/21 11:28 01/11/21 17:27 01/11/21 23:35 01/12/21 05:24 Glucose (Fingerstick) 110 mg/dL (70-99) 108 mg/dL (70-99) 123 mg/dL (70-99) 106 mg/dL (70-99) Test 01/12/21 08:51 01/12/21 11:37 01/12/21 17:33 White Blood Count 8.0 x10^3/uL (4.0-11.0) Red Blood Count 3.73 x10^6/uL (3.50-5.40) Hemoglobin 9.2 g/dL (12.0-15.5) Hematocrit 29.0 % (36.0-47.0) Mean Corpuscular Volume 78 fL (79-100) Mean Corpuscular Hemoglobin 25 pg (25-35) Mean Corpuscular Hemoglobin Concent 32 g/dL (31-37) Red Cell Distribution Width 16.0 % (11.5-14.5) Platelet Count 186 x10^3/uL (140-400) Neutrophils (%) (Auto) 67 % (31-73) Lymphocytes (%) (Auto) 14 % (24-48) Monocytes (%) (Auto) 14 % (0-9) Eosinophils (%) (Auto) 4 % (0-3) Basophils (%) (Auto) 1 % (0-3) Neutrophils # (Auto) 5.4 x10^3/uL (1.8-7.7) Lymphocytes # (Auto) 1.1 x10^3/uL (1.0-4.8) Monocytes # (Auto) 1.1 x10^3/uL (0.0-1.1) Eosinophils # (Auto) 0.3 x10^3/uL (0.0-0.7) Basophils # (Auto) 0.1 x10^3/uL (0.0-0.2) Sodium Level 145 mmol/L (136-145) Potassium Level 3.7 mmol/L (3.5-5.1) Chloride Level 107 mmol/L (98-107) Carbon Dioxide Level 35 mmol/L (21-32) Anion Gap 3 (6-14) Blood Urea Nitrogen 17 mg/dL (7-20) Creatinine 1.3 mg/dL (0.6-1.0) Estimated GFR (Cockcroft-Gault) 50.2 BUN/Creatinine Ratio 13 (6-20) Glucose Level 95 mg/dL (70-99) Calcium Level 8.1 mg/dL (8.5-10.1) Total Bilirubin 0.2 mg/dL (0.2-1.0) Aspartate Amino Transf (AST/SGOT) 37 U/L (15-37) Alanine Aminotransferase (ALT/SGPT) 14 U/L (14-59) Alkaline Phosphatase 60 U/L (46-116) Total Protein 5.1 g/dL (6.4-8.2) Albumin 1.8 g/dL (3.4-5.0) Albumin/Globulin Ratio 0.5 (1.0-1.7) Glucose (Fingerstick) 94 mg/dL (70-99) 79 mg/dL (70-99) Laboratory Tests Test 01/11/21 23:35 01/12/21 05:24 01/12/21 08:51 01/12/21 11:37 Glucose (Fingerstick) 123 mg/dL (70-99) 106 mg/dL (70-99) 94 mg/dL (70-99) White Blood Count 8.0 x10^3/uL (4.0-11.0) Red Blood Count 3.73 x10^6/uL (3.50-5.40) Hemoglobin 9.2 g/dL (12.0-15.5) Hematocrit 29.0 % (36.0-47.0) Mean Corpuscular Volume 78 fL (79-100) Mean Corpuscular Hemoglobin 25 pg (25-35) Mean Corpuscular Hemoglobin Concent 32 g/dL (31-37) Red Cell Distribution Width 16.0 % (11.5-14.5) Platelet Count 186 x10^3/uL (140-400) Neutrophils (%) (Auto) 67 % (31-73) Lymphocytes (%) (Auto) 14 % (24-48) Monocytes (%) (Auto) 14 % (0-9) Eosinophils (%) (Auto) 4 % (0-3) Basophils (%) (Auto) 1 % (0-3) Neutrophils # (Auto) 5.4 x10^3/uL (1.8-7.7) Lymphocytes # (Auto) 1.1 x10^3/uL (1.0-4.8) Monocytes # (Auto) 1.1 x10^3/uL (0.0-1.1) Eosinophils # (Auto) 0.3 x10^3/uL (0.0-0.7) Basophils # (Auto) 0.1 x10^3/uL (0.0-0.2) Sodium Level 145 mmol/L (136-145) Potassium Level 3.7 mmol/L (3.5-5.1) Chloride Level 107 mmol/L (98-107) Carbon Dioxide Level 35 mmol/L (21-32) Anion Gap 3 (6-14) Blood Urea Nitrogen 17 mg/dL (7-20) Creatinine 1.3 mg/dL (0.6-1.0) Estimated GFR (Cockcroft-Gault) 50.2 BUN/Creatinine Ratio 13 (6-20) Glucose Level 95 mg/dL (70-99) Calcium Level 8.1 mg/dL (8.5-10.1) Total Bilirubin 0.2 mg/dL (0.2-1.0) Aspartate Amino Transf (AST/SGOT) 37 U/L (15-37) Alanine Aminotransferase (ALT/SGPT) 14 U/L (14-59) Alkaline Phosphatase 60 U/L (46-116) Total Protein 5.1 g/dL (6.4-8.2) Albumin 1.8 g/dL (3.4-5.0) Albumin/Globulin Ratio 0.5 (1.0-1.7) Test 01/12/21 17:33 Glucose (Fingerstick) 79 mg/dL (70-99) Medications Active Scripts Medications Dose Route/Sig Max Daily Dose Days Date Category Dose Instructions Voltaren (Diclofenac Sodium) 100 Gm Gel..gram. 1 Gm TP QID 30 12/10/20 Reported apply to affected area(s) Oxycodone Hcl 5 Mg Capsule 5 Mg PO PRN Q6HRS PRN 12/08/20 Reported Nystatin 15 Gm Powder 1 [place] TP BID 7 12/08/20 Reported apply to affected area(s) Ondansetron Odt (Ondansetron) 4 Mg Tab.rapdis 1 Tab PO PRN Q8HRS PRN 11/05/20 Reported Reglan (Metoclopramide Hcl) 10 Mg Tablet 1 Tab PO QID 30 11/05/20 Reported before food and bedtime Pantoprazole Sodium (Pantoprazole Sodium) 40 Mg Tablet.dr 40 Mg PO BIDAC 30 06/21/20 Rx Losartan Potassium 100 Mg Tablet 100 Mg PO DAILY 05/03/20 Reported Aspirin 325 Mg Tablet 1 Tab PO DAILY 05/03/20 Reported Metformin Hcl 500 Mg Tablet 500 Mg PO BIDWMEALS 05/03/20 Reported Bumetanide 1 Mg Tablet 1 Mg PO BID 04/02/20 Reported Insulin Aspart 100 Unit/1 Ml Vial 60 Unit SQ TIDAC 04/02/20 Reported novolg flex pen Isosorbide Mononitrate Er (Isosorbide Mononitrate) 120 Mg Tab.er.24h 120 Mg PO DAILY 04/02/20 Reported NITROGLYCERIN SubLingual (Nitroglycerin) 0.4 Mg Tab.subl 0.4 Mg SL PRN Q5MIN PRN 04/02/20 Reported Albuterol Sulfate Neb Soln (Albuterol Sulfate) 2.5 Mg/3 Ml Vial.neb 2.5 Mg NEB Q4-6HRS PRN 04/02/20 Reported Levemir Flextouch (Insulin Detemir) 100 Unit/1 Ml Insuln.pen 60 Unit SQ HS 04/02/20 Reported Hydralazine Hcl 25 Mg Tablet 25 Mg PO BID 04/02/20 Reported Fluticasone Propionate Nasal [place] (Fluticasone Propionate) 16 Gm [place].susp 2 [place] NS DAILY 06/18/19 Reported Zolpidem Tartrate 5 Mg Tablet 5 Mg PO PRN QHS PRN 06/18/19 Reported Amlodipine Besylate 10 Mg Tablet 10 Mg PO DAILY 06/18/19 Reported Gabapentin 600 Mg Tablet 600 Mg PO BID 06/18/19 Reported Potassium Chloride (Potassium Chloride) 20 Meq Tablet.er 20 Meq PO BID 06/18/19 Reported Clopidogrel (Clopidogrel Bisulfate) 75 Mg Tablet 75 Mg PO DAILYWBKFT 75 11/10/17 Rx Proair Respiclick (Albuterol Sulfate) 90 Mcg Aer.pow.ba 2 Puff IH PRN Q4-6HRS PRN 09/08/16 Reported Cyclobenzaprine Hcl 10 Mg Tablet 1 Tab PO BID PRN 09/08/16 Reported Requip (Ropinirole Hcl) 1 Mg Tablet 1 Tab PO QHS 09/08/16 Reported Crestor (Rosuvastatin Calcium) 20 Mg Tablet 20 Mg PO HS 10/02/15 Reported LAST DOSE: 3/14/16 BEDTIME NEXT DOSE: 10/02/15 BEDTIME Oxybutynin Chloride 5 Mg Tablet 1 Tab PO DAILY 10/02/15 Reported LAST DOSE: 10/02/15 AM NEXT DOSE: 10/03/15 AM Comments CXR 01/10/21 IMPRESSION: Resolution of left pleural effusion. Unchanged bilateral opacities. CXR 01/07 IMPRESSION: 1. Diffuse interstitial prominence may be seen with interstitial pulmonary edema or atypical infectious/inflammatory process. 2. Support lines and tubes as above. 3. Mild cardiomegaly. Impression . 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 Echo 12/2019 with LVEF 45%, improved on cath on 12/07 Coronary artery disease with recent -- cath 12/07 showed patent long stented proximal to distal LAD. No lesions needing intervention were noted. Echo with LVEF 55 to 60%. Type 2 diabetes. Chronic obstructive pulmonary disease. Morbid obesity. Hypertension. Obstructive sleep apnea. MIRIAM cr trending down Plan . UPDATED 01/12/21 Continue current vent support A/C Follow ID recs-- ABX for aspiration PNA, Follow Cultures,Sputum culture positive for staph aureus-- 01/06 BC NGTD Consult surgery for possible PEG and Trach next week Follow cardiology recs-- Follow Nephrology recs Follow neurology recs--no plans for further testing at this time Nutritional Support DVT/GI PPX-- Sub Q heparin-- on hold for bloody secretion from ET tube D/W RN and RT D/W Family, poor prognosis, pt. remains a FULL CODE UPDATED 01/11/21 Continue current vent support A/C 16/450/5/40% ABG/CXR-- reviewed -- reduce Fi02 to 35% Follow ID recs-- ABX for aspiration PNA, Follow Cultures,Sputum culture positive for staph aureus-- 01/06 BC NGTD Follow cardiology recs-- Follow Nephrology recs--worsening renal function today Follow neurology recs--no plans for further testing at this time Nutritional Support DVT/GI PPX-- Sub Q heparin D/W RN and RT D/W Family, poor prognosis, pt. remains a FULL CODE UPDATED 01/10/21 Continue current vent support 40% and PEEP of 5 ABG/CXR-- reviewed -- will give X1 dose of lasix today Follow ID recs-- ABX for aspiration PNA, Follow Cultures,Sputum culture positive for staph aureus-- / BC NGTD Follow cardiology recs-- Follow Nephrology recs Follow neurology recs--S/P EEG, pt. 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 Follow Nephrology recs Follow neurology recs-- anoxic brain injury/not brain /seizures-=- no further workup at this time --poor prognosis Nutritional Support DVT/GI PPX-- Sub Q heparin D/W RN and RT Dr.riffle Marroquin/Corey Family in regards to goals or care Updated 01/08 Continue current support Follow neurology input, EEG performed today Dr. 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 Follow Nephrology recs -- MIRIAM with improving renal function -- IVF Follow neurology recs-- anoxic brain injury/not brain --poor prognosis Nutritional Support DVT/GI PPX-- Sub Q heparin D/W RN and RT PLAN: 1. cont vent support setting reviewed, abg reviewed, personally decreased rr to 16 not alert enough to do sbt off sedation 2. cont antibiotics. 3. Monitor blood sugars. 4. Neurology consulted for questionable seizures. on anti sz meds 5. elevate hob 6. DVT and GI prophylaxis. 7. follow Cardiology rec, p.r.n. hydralazine for elevated blood pressure. 8. has le edema, le venous doppler no dvt discussed w rn rt RAF CADET MD Jan 12, 2021 19:48
[2021-01-12] MEDS: ATORVASTATIN CALCIUM 40 MG TABLET. PO SCH (21:06)
[2021-01-12] MEDS: FAMOTIDINE 20 MG/2 ML VIAL IVP SCH (21:06)
[2021-01-13] VITALS (24 sets, daily range): BP systolic 103–172; BP diastolic 41–93
[2021-01-13 00:26] LABS: BASE EXCESS ABG 9 mmol/L (-3-3); HCO3 ABG 33 mmol/L (21-28); PCO2 ABG 42 mmHg (35-46); PO2 ABG 140 mmHg (65-108); SAT O2 ABG 99 % (92-99)
[2021-01-13] MEDS: PIPERACILLIN/TAZOBACTAM 3.375 GM in IV NORMAL SALINE 50ML 50 ML IV SCH ×4 (05:59→23:55)
[2021-01-13] MEDS: INSULIN LISPRO 300 UNITS/3 ML VIAL. SQ SCH ×4 (06:00→23:57)
[2021-01-13 06:32] LABS: CALCIUM 8.6 mg/dL (8.5-10.1); CREATININE 1.3 mg/dL (0.6-1.0); GFR 50.2; MAGNESIUM 2.3 mg/dL (1.8-2.4); POTASSIUM 3.7 mmol/L (3.5-5.1)
--- NOTE | 2021-01-13 07:37 | RAD ---
Exam performed: One view chest. Indication: Reason: Ventilator patient 113 / Spl. Instructions: / History: Date of Service: 01/13/2021 6:11 AM Comparison: One view chest from 01/11/2021. Single AP semiupright portable view chest findings and impression: Cardiomediastinal silhouette is mildly enlarged and stable. Interval extubation. Allowing for differe nce in technique and positioning between the 2 studies, there does not appear to be a significant int erval change small left pleural effusion and associated infiltrate or atelectasis. There are linear r ight basilar opacities likely atelectasis. Electronically signed by: Ashley Peters MD (01/13/2021 7:35 AM) [facility]
--- NOTE | 2021-01-13 07:46 | PDOC ---
[employer] PROGRESS NOTE Date of Service DOS: DATE: 01/13/21 TIME: 07:26 Chief Complaint Chief Complaint A/P: Respiratory failure SUSPECT aspiration pneumonia Mild prominent interstitial lung markings likely mild congestive changes or interstitial infiltrates Ventricular fib arrest - on amio CAD - Extensive stenting of the LAD with the most significant area of restenosis being a 35% lesion in the mid vessel. Mild disease in the right coronary artery. PCI to the LAD and ramus on 10/2017. Cardiac cath on 12/12/2020 with no new disease. Acute renal failure/ MIRIAM Hyperkalemia Aspiration pneumonia Altered mental status Sepsis MORBID OBESITY Severe protein malnutrition HTN urgency - Cont meds, prn IV hydralazine Hyperlipidemia - on statin DM2 - BG controlled. Will cut her lantus given NPO status. A1c 5.6 CKD3 - with MIRIAM, above DIONNE wtih CPAP - asked to bring home BIPAP in if she is extubated COPD - on chronic home O2, will continue current meds Chronic systolic CHF (reduced EF to 42% 12/2019) - cont meds. RLS Peripheral neuropathy Consult cardiology Nephrology consult ID CONSULT PULM CONSULT Neurology consult FEN - OGT feeds PPX - lovenox CODE - FULL Dispo - ICU History of Present Illness History of Present Illness Ms Castro is a 60 year old female w/ PMHx Asthma, CAD s/p stenting x6, CHF, COPD, Diabetes-Type II, High Cholesterol, Hypertension, neuropathy, morbid obesity, RLS, insomnia who presented to ER after she was brought here by EMS from home after she was found unresponsive in her bed by her family. Patient was last known normal was 9 AM on 01/03/2021. family tried to call her but could not get a hold of her so they show up to her house, found her unresponsive in her bed. Per family, patient had a CPAP machine on but the mask slid off her face, there was lot of mucus and material around her face and on her neck area. Patient was responsive to painful stimuli but was very confused, did not follow command. EMS were called, they found her in respiratory distress, GCS of 7-8, they bagged her and brought her here. Upon arrival to room, patient was unresponsive to verbal, severe respiratory distress, need emergent intubation. During the difficult intubation patient became bradycardic and CODE BLUE was initiated. Patient subsequently went into ventricular fibrillation, underwent shock therapy and was initiated on intravenous amiodarone infusion and admitted to ICU. She has been admitted to [facility] x2 for intractable nausea and vomiting and PMC once has had this as well as intense pruritis for 6 months. Was seen and treated for same in November, underwent cardiac cath and GI consultation at the time, was discharged home. Her family stated that patient was seen here 2 days prior for epigastric abdominal pain. It was recommended that she need to stay in the hospital however patient did not want to stay in the hospital so she went home. AMA. 01/05: No acute events overnight. Patient seen and examined bedside. Patient remains intubated. Without sedation. Vent settings at 18/450/40/5. Patient is not responding to painful stimuli at this time. There is a lot of secretions. Currently not on any vasopressors 01/06: No acute events overnight. Patient withdraws to pain. Still intubated with vent settings at 16/450/40/5. Not on any sedation at this time. 01/07: No overnight events. Afebrile. On vent with no sedation for 48 hours FiO2 40% PEEP of 5. Not requiring vasopressors. Not making meaningful eye contact or meaningful movement. Minimal reflexes. Breathing over the vent. Discussed with son, Lance overall poor prognosis given what is likely anoxic encephalopathy. He wants to discuss with his aunt Liss and sister Camille future goals of care. 01/08: No events. Afebrile. Still with no meaningful activity no sedation on vent FiO2 40% PEEP of 5, ABG 7.45/46/142. No BM. Adequate UOP. No residuals on feeds. EEG interpreted by neurology as abnormal because of a severe diffuse disturbance of cerebral activity, consistent with a very poor prognosis from anoxic encephalopathy. 01/09: Overnight ventilated no significant activity he still off sedation. K3.2. Vent FiO2 40% PEEP of 5. Chest radiograph unchanged from prior. Right hand with new twitching, concerning for seizure activity, d/w neurology. D/w sons goals of care and grim neurologic prognosis. 01/10: Afebrile, K3.1. ABG 7.4 7/40/129 on 40% FiO2. CXR stable. Still with right hand tremor. Long d/w son, Lance, and his significant other. 01/11: No overnight events. Chest radiograph stable, ABG on 40% FiO2 and PEEP 5 was 7.48/46/137. Heart rate slowing down and blood pressure coming up a bit. Glucose stable. No sedating meds for over 96 hours. No meaningful interaction. Babinski reflexes demonstrated to family. 01/12: Afebrile overnight. Creatinine 1.3, Hb 9.2. Having more PVCs on monitor today. On 40% FiO2 PEEP of 5. Blood pressure little elevated requiring additional IV dose of hydralazine. Still with right arm twitching and irregular mouth movement. No meaningful neurologic interaction. Afebrile overnight. Chest radiograph appears relatively unchanged from prior. Still with multiple PVCs. On vent without sedation since 01/04/2021. FiO2 40% PEEP 5 ABG 7.46/49/129. Still with right arm twitching, more severe. Attempted to call Lance, son and DPOA, no answer, voicemail full, but last evening he did come in and request to move forward with trach and PEG referrals, does not want to discuss end-of-life care with me anymore Vitals/I&O Vitals/I&O: Vital Signs Date Time Temp Pulse Resp B/P (MAP) Pulse Ox O2 Delivery O2 Flow Rate FiO2 01/13/21 07:00 75 12 154/67 (96) 97 Ventilator 01/13/21 04:00 98.2 98.2 I & O 01/12/21 01/12/21 01/13/21 15:00 23:00 07:00 Intake Total 745 ml 545 ml 850 ml Output Total 660 ml 390 ml 200 ml Balance 85 ml 155 ml 650 ml Physical Exam Physical Exam: GENERAL: Intubated, opens eyes transiently, does not follow any commands HEENT: Normocephalic, atraumatic. Tongue protruded, ETT /OGT + NECK: Supple though fullness due to body habitus. LUNGS: Decreased breath sounds. No wheezing. HEART: S1, S2. Distant heart sounds. ABDOMEN: Obese. Bowel sounds present. EXTREMITIES: Minimal edema. No cyanosis. NEUROLOGIC: Intubated,right upper extremity intermittent twitching Left IJ clean General: Other Heart: Regular rate Lungs: Crackles Abdomen: Soft Extremities: Other (Trace edema) Labs Labs: Laboratory Tests Test 01/12/21 08:51 01/12/21 11:37 01/12/21 17:33 01/12/21 23:49 White Blood Count 8.0 x10^3/uL (4.0-11.0) Red Blood Count 3.73 x10^6/uL (3.50-5.40) Hemoglobin 9.2 g/dL (12.0-15.5) Hematocrit 29.0 % (36.0-47.0) Mean Corpuscular Volume 78 fL (79-100) Mean Corpuscular Hemoglobin 25 pg (25-35) Mean Corpuscular Hemoglobin Concent 32 g/dL (31-37) Red Cell Distribution Width 16.0 % (11.5-14.5) Platelet Count 186 x10^3/uL (140-400) Neutrophils (%) (Auto) 67 % (31-73) Lymphocytes (%) (Auto) 14 % (24-48) Monocytes (%) (Auto) 14 % (0-9) Eosinophils (%) (Auto) 4 % (0-3) Basophils (%) (Auto) 1 % (0-3) Neutrophils # (Auto) 5.4 x10^3/uL (1.8-7.7) Lymphocytes # (Auto) 1.1 x10^3/uL (1.0-4.8) Monocytes # (Auto) 1.1 x10^3/uL (0.0-1.1) Eosinophils # (Auto) 0.3 x10^3/uL (0.0-0.7) Basophils # (Auto) 0.1 x10^3/uL (0.0-0.2) Sodium Level 145 mmol/L (136-145) Potassium Level 3.7 mmol/L (3.5-5.1) Chloride Level 107 mmol/L (98-107) Carbon Dioxide Level 35 mmol/L (21-32) Anion Gap 3 (6-14) Blood Urea Nitrogen 17 mg/dL (7-20) Creatinine 1.3 mg/dL (0.6-1.0) Estimated GFR (Cockcroft-Gault) 50.2 BUN/Creatinine Ratio 13 (6-20) Glucose Level 95 mg/dL (70-99) Calcium Level 8.1 mg/dL (8.5-10.1) Total Bilirubin 0.2 mg/dL (0.2-1.0) Aspartate Amino Transf (AST/SGOT) 37 U/L (15-37) Alanine Aminotransferase (ALT/SGPT) 14 U/L (14-59) Alkaline Phosphatase 60 U/L (46-116) Total Protein 5.1 g/dL (6.4-8.2) Albumin 1.8 g/dL (3.4-5.0) Albumin/Globulin Ratio 0.5 (1.0-1.7) Glucose (Fingerstick) 94 mg/dL (70-99) 79 mg/dL (70-99) 126 mg/dL (70-99) Test 01/13/21 06:00 01/13/21 06:09 Sodium Level 145 mmol/L (136-145) Potassium Level 3.7 mmol/L (3.5-5.1) Chloride Level 108 mmol/L (98-107) Carbon Dioxide Level 31 mmol/L (21-32) Anion Gap 6 (6-14) Blood Urea Nitrogen 16 mg/dL (7-20) Creatinine 1.3 mg/dL (0.6-1.0) Estimated GFR (Cockcroft-Gault) 50.2 Glucose Level 96 mg/dL (70-99) Calcium Level 8.6 mg/dL (8.5-10.1) Magnesium Level 2.3 mg/dL (1.8-2.4) Glucose (Fingerstick) 97 mg/dL (70-99) Assessment and Plan Assessmemt and Plan Problems Medical Problems: (1) Acute renal failure Status: Acute (2) Altered mental status Status: Acute (3) Aspiration pneumonia Status: Acute (4) Hyperkalemia Status: Acute (5) Respiratory failure Status: Acute (6) Sepsis Status: Acute Comment Review of Relevant I have reviewed the following items shady (where applicable) has been applied. Justifications for Admission Other Justification cardiac arrest DANY CORTES MD Jan 13, 2021 07:46
[2021-01-13 08:02] LABS: HEMATOCRIT 27.5 % (36.0-47.0); HEMOGLOBIN 8.6 g/dL (12.0-15.5); RED BLOOD COUNT 3.52 x10^6/uL (3.50-5.40); WHITE BLOOD COUNT 7.5 x10^3/uL (4.0-11.0)
[2021-01-13 08:41] LABS: FIO2 ABG 40/VENT
[2021-01-13 08:41] LABS: BASE EXCESS ABG 9 mmol/L (-3-3); HCO3 ABG 34 mmol/L (21-28); PCO2 ABG 49 mmHg (35-46); PO2 ABG 129 mmHg (65-108); SAT O2 ABG 98 % (92-99)
[2021-01-13 08:42] LABS: FIO2 ABG 40/VENT
[2021-01-13] MEDS: ASPIRIN CHEWABLE 81 MG TABLET. PO SCH (09:12)
[2021-01-13] MEDS: VALPROIC ACID (AS SODIUM SALT) 750 MG in IV DEXTROSE 5% 50 ML IV SCH ×2 (09:12→20:47)
[2021-01-13] MEDS: ISOSORBIDE MONONITRATE 20 MG TABLET PO SCH ×2 (09:13→14:40)
[2021-01-13] MEDS: LOSARTAN POTASSIUM 50 MG TABLET. PO SCH (09:13)
[2021-01-13] MEDS: GLYCOPYRROLATE 1 MG/5 ML VIAL. IV PRN (09:13)
[2021-01-13] MEDS: hydrALAZINE 25 MG TABLET PO SCH ×2 (09:14→20:52)
[2021-01-13] MEDS: METOPROLOL TART IMMED RELEASE 25 MG TABLET. PO SCH ×2 (09:14→20:51)
[2021-01-13] MEDS: CLOPIDOGREL BISULFATE 75 MG TABLET PO SCH (09:18)
--- NOTE | 2021-01-13 11:48 | PDOC ---
Infectious Disease Note Subjective: Subjective Intubated , does not respond to any commands Now has constant twitching of right upper extremity Patient condition remains unchanged per discussion with RN Vital Signs: Vital Signs Vital Signs Date Time Temp Pulse Resp B/P (MAP) Pulse Ox O2 Delivery O2 Flow Rate FiO2 01/13/21 11:00 74 12 114/65 (81) 100 Ventilator 01/13/21 08:00 99.5 99.5 Physical Exam: PHYSICAL EXAM GENERAL: Intubated, opens eyes transiently, does not follow any commands HEENT: Normocephalic, atraumatic. Tongue protruded, ETT /OGT + NECK: Supple though fullness due to body habitus. LUNGS: Decreased breath sounds. No wheezing. HEART: S1, S2. Distant heart sounds. ABDOMEN: Obese. Bowel sounds present. EXTREMITIES: Minimal edema. No cyanosis. NEUROLOGIC: Intubated,right upper extremity twitching Left IJ clean Medications: Inpatient Meds: Medications reviewed. Labs: Lab Laboratory Tests Test 01/12/21 17:33 01/12/21 23:49 01/13/21 06:00 01/13/21 06:09 Glucose (Fingerstick) 79 mg/dL (70-99) 126 mg/dL (70-99) 97 mg/dL (70-99) Sodium Level 145 mmol/L (136-145) Potassium Level 3.7 mmol/L (3.5-5.1) Chloride Level 108 mmol/L (98-107) Carbon Dioxide Level 31 mmol/L (21-32) Anion Gap 6 (6-14) Blood Urea Nitrogen 16 mg/dL (7-20) Creatinine 1.3 mg/dL (0.6-1.0) Estimated GFR (Cockcroft-Gault) 50.2 Glucose Level 96 mg/dL (70-99) Calcium Level 8.6 mg/dL (8.5-10.1) Magnesium Level 2.3 mg/dL (1.8-2.4) Test 01/13/21 07:50 01/13/21 08:00 White Blood Count 7.5 x10^3/uL (4.0-11.0) Red Blood Count 3.52 x10^6/uL (3.50-5.40) Hemoglobin 8.6 g/dL (12.0-15.5) Hematocrit 27.5 % (36.0-47.0) Mean Corpuscular Volume 78 fL (79-100) Mean Corpuscular Hemoglobin 24 pg (25-35) Mean Corpuscular Hemoglobin Concent 31 g/dL (31-37) Red Cell Distribution Width 16.0 % (11.5-14.5) Platelet Count 200 x10^3/uL (140-400) O2 Saturation 98 % (92-99) Arterial Blood pH 7.46 (7.35-7.45) Arterial Blood pCO2 at Patient Temp 49 mmHg (35-46) Arterial Blood pO2 at Patient Temp 129 mmHg (65-108) Arterial Blood HCO3 34 mmol/L (21-28) Arterial Blood Base Excess 9 mmol/L (-3-3) FiO2 40/vent Objective: Assessment: 1. Fever. Resolved 2. Leukocytosis and lactic acidosis. Proving 3. Acute hypoxic respiratory failure. Status post intubation 4. Suspected aspiration pneumonia. Sputum culture positive for mssa 5. Status post cardiopulmonary arrest. 6. Questionable seizures. Encephalopathy 7. Diabetes mellitus 2. 8. Morbid obesity. 9. Obstructive sleep apnea. 10. Coronary artery disease. 11. Chronic kidney disease 12. Hypernatremia and hyperkalemia. 13 Gram-positive bacteremia bacteremia 2 out of 4 bottles present on admission staph epidermidis Plan: Plan of Care 1. Continue Zosyn , off daptomycin 2. Follow up labs and cultures. Follow-up repeat blood cultures 01/06 negative so far 3. Continue supportive care. 4. Critically ill. 5. Prognosis poor. Discussed with nursing staff LUDY CRUZ MD Jan 13, 2021 11:48
[2021-01-13] MEDS: HEPARIN for SUB-Q USE 5,000 UNIT/ML VIAL. SQ SCH ×2 (14:41→21:26)
--- NOTE | 2021-01-13 16:16 | PDOC ---
PULMONARY PROGRESS NOTES DATE: 01/13/21 TIME: 16:12 Subjective Pt. remains on vent support AC mode remains on unresponsive Constant twitching of RUE Vitals Vital Signs Date Time Temp Pulse Resp B/P (MAP) Pulse Ox O2 Delivery O2 Flow Rate FiO2 01/13/21 16:03 100 Ventilator 01/13/21 15:00 66 12 119/64 (82) 01/13/21 12:00 99.2 99.2 Comments unable to obtain 2/2 clinical state HEENT: Other (nc at perrl nose clear orally intubated neck no lad no thyromegaly ) Lungs: Crackles Cardiovascular: S1, S2 Abdomen: Soft, Non-tender, Other (no mass obese) Extremities: Other (edema) Skin: Warm Labs Laboratory Tests Test 01/11/21 17:27 01/11/21 23:35 01/12/21 05:24 01/12/21 08:00 Glucose (Fingerstick) 108 mg/dL (70-99) 123 mg/dL (70-99) 106 mg/dL (70-99) O2 Saturation 99 % (92-99) Arterial Blood pH 7.52 (7.35-7.45) Arterial Blood pCO2 at Patient Temp 42 mmHg (35-46) Arterial Blood pO2 at Patient Temp 140 mmHg (65-108) Arterial Blood HCO3 33 mmol/L (21-28) Arterial Blood Base Excess 9 mmol/L (-3-3) FiO2 40/vent Test 01/12/21 08:51 01/12/21 11:37 01/12/21 17:33 01/12/21 23:49 White Blood Count 8.0 x10^3/uL (4.0-11.0) Red Blood Count 3.73 x10^6/uL (3.50-5.40) Hemoglobin 9.2 g/dL (12.0-15.5) Hematocrit 29.0 % (36.0-47.0) Mean Corpuscular Volume 78 fL (79-100) Mean Corpuscular Hemoglobin 25 pg (25-35) Mean Corpuscular Hemoglobin Concent 32 g/dL (31-37) Red Cell Distribution Width 16.0 % (11.5-14.5) Platelet Count 186 x10^3/uL (140-400) Neutrophils (%) (Auto) 67 % (31-73) Lymphocytes (%) (Auto) 14 % (24-48) Monocytes (%) (Auto) 14 % (0-9) Eosinophils (%) (Auto) 4 % (0-3) Basophils (%) (Auto) 1 % (0-3) Neutrophils # (Auto) 5.4 x10^3/uL (1.8-7.7) Lymphocytes # (Auto) 1.1 x10^3/uL (1.0-4.8) Monocytes # (Auto) 1.1 x10^3/uL (0.0-1.1) Eosinophils # (Auto) 0.3 x10^3/uL (0.0-0.7) Basophils # (Auto) 0.1 x10^3/uL (0.0-0.2) Sodium Level 145 mmol/L (136-145) Potassium Level 3.7 mmol/L (3.5-5.1) Chloride Level 107 mmol/L (98-107) Carbon Dioxide Level 35 mmol/L (21-32) Anion Gap 3 (6-14) Blood Urea Nitrogen 17 mg/dL (7-20) Creatinine 1.3 mg/dL (0.6-1.0) Estimated GFR (Cockcroft-Gault) 50.2 BUN/Creatinine Ratio 13 (6-20) Glucose Level 95 mg/dL (70-99) Calcium Level 8.1 mg/dL (8.5-10.1) Total Bilirubin 0.2 mg/dL (0.2-1.0) Aspartate Amino Transf (AST/SGOT) 37 U/L (15-37) Alanine Aminotransferase (ALT/SGPT) 14 U/L (14-59) Alkaline Phosphatase 60 U/L (46-116) Total Protein 5.1 g/dL (6.4-8.2) Albumin 1.8 g/dL (3.4-5.0) Albumin/Globulin Ratio 0.5 (1.0-1.7) Glucose (Fingerstick) 94 mg/dL (70-99) 79 mg/dL (70-99) 126 mg/dL (70-99) Test 01/13/21 06:00 01/13/21 06:09 01/13/21 07:50 01/13/21 08:00 Sodium Level 145 mmol/L (136-145) Potassium Level 3.7 mmol/L (3.5-5.1) Chloride Level 108 mmol/L (98-107) Carbon Dioxide Level 31 mmol/L (21-32) Anion Gap 6 (6-14) Blood Urea Nitrogen 16 mg/dL (7-20) Creatinine 1.3 mg/dL (0.6-1.0) Estimated GFR (Cockcroft-Gault) 50.2 Glucose Level 96 mg/dL (70-99) Calcium Level 8.6 mg/dL (8.5-10.1) Magnesium Level 2.3 mg/dL (1.8-2.4) Glucose (Fingerstick) 97 mg/dL (70-99) White Blood Count 7.5 x10^3/uL (4.0-11.0) Red Blood Count 3.52 x10^6/uL (3.50-5.40) Hemoglobin 8.6 g/dL (12.0-15.5) Hematocrit 27.5 % (36.0-47.0) Mean Corpuscular Volume 78 fL (79-100) Mean Corpuscular Hemoglobin 24 pg (25-35) Mean Corpuscular Hemoglobin Concent 31 g/dL (31-37) Red Cell Distribution Width 16.0 % (11.5-14.5) Platelet Count 200 x10^3/uL (140-400) O2 Saturation 98 % (92-99) Arterial Blood pH 7.46 (7.35-7.45) Arterial Blood pCO2 at Patient Temp 49 mmHg (35-46) Arterial Blood pO2 at Patient Temp 129 mmHg (65-108) Arterial Blood HCO3 34 mmol/L (21-28) Arterial Blood Base Excess 9 mmol/L (-3-3) FiO2 40/vent Test 01/13/21 11:29 Glucose (Fingerstick) 94 mg/dL (70-99) Laboratory Tests Test 01/12/21 17:33 01/12/21 23:49 01/13/21 06:00 01/13/21 06:09 Glucose (Fingerstick) 79 mg/dL (70-99) 126 mg/dL (70-99) 97 mg/dL (70-99) Sodium Level 145 mmol/L (136-145) Potassium Level 3.7 mmol/L (3.5-5.1) Chloride Level 108 mmol/L (98-107) Carbon Dioxide Level 31 mmol/L (21-32) Anion Gap 6 (6-14) Blood Urea Nitrogen 16 mg/dL (7-20) Creatinine 1.3 mg/dL (0.6-1.0) Estimated GFR (Cockcroft-Gault) 50.2 Glucose Level 96 mg/dL (70-99) Calcium Level 8.6 mg/dL (8.5-10.1) Magnesium Level 2.3 mg/dL (1.8-2.4) Test 01/13/21 07:50 01/13/21 08:00 01/13/21 11:29 White Blood Count 7.5 x10^3/uL (4.0-11.0) Red Blood Count 3.52 x10^6/uL (3.50-5.40) Hemoglobin 8.6 g/dL (12.0-15.5) Hematocrit 27.5 % (36.0-47.0) Mean Corpuscular Volume 78 fL (79-100) Mean Corpuscular Hemoglobin 24 pg (25-35) Mean Corpuscular Hemoglobin Concent 31 g/dL (31-37) Red Cell Distribution Width 16.0 % (11.5-14.5) Platelet Count 200 x10^3/uL (140-400) O2 Saturation 98 % (92-99) Arterial Blood pH 7.46 (7.35-7.45) Arterial Blood pCO2 at Patient Temp 49 mmHg (35-46) Arterial Blood pO2 at Patient Temp 129 mmHg (65-108) Arterial Blood HCO3 34 mmol/L (21-28) Arterial Blood Base Excess 9 mmol/L (-3-3) FiO2 40/vent Glucose (Fingerstick) 94 mg/dL (70-99) Medications Active Scripts Medications Dose Route/Sig Max Daily Dose Days Date Category Dose Instructions Voltaren (Diclofenac Sodium) 100 Gm Gel..gram. 1 Gm TP QID 30 12/10/20 Reported apply to affected area(s) Oxycodone Hcl 5 Mg Capsule 5 Mg PO PRN Q6HRS PRN 12/08/20 Reported Nystatin 15 Gm Powder 1 [place] TP BID 7 12/08/20 Reported apply to affected area(s) Ondansetron Odt (Ondansetron) 4 Mg Tab.rapdis 1 Tab PO PRN Q8HRS PRN 11/05/20 Reported Reglan (Metoclopramide Hcl) 10 Mg Tablet 1 Tab PO QID 30 11/05/20 Reported before food and bedtime Pantoprazole Sodium (Pantoprazole Sodium) 40 Mg Tablet.dr 40 Mg PO BIDAC 30 06/21/20 Rx Losartan Potassium 100 Mg Tablet 100 Mg PO DAILY 05/03/20 Reported Aspirin 325 Mg Tablet 1 Tab PO DAILY 05/03/20 Reported Metformin Hcl 500 Mg Tablet 500 Mg PO BIDWMEALS 05/03/20 Reported Bumetanide 1 Mg Tablet 1 Mg PO BID 04/02/20 Reported Insulin Aspart 100 Unit/1 Ml Vial 60 Unit SQ TIDAC 04/02/20 Reported novolg flex pen Isosorbide Mononitrate Er (Isosorbide Mononitrate) 120 Mg Tab.er.24h 120 Mg PO DAILY 04/02/20 Reported NITROGLYCERIN SubLingual (Nitroglycerin) 0.4 Mg Tab.subl 0.4 Mg SL PRN Q5MIN PRN 04/02/20 Reported Albuterol Sulfate Neb Soln (Albuterol Sulfate) 2.5 Mg/3 Ml Vial.neb 2.5 Mg NEB Q4-6HRS PRN 04/02/20 Reported Levemir Flextouch (Insulin Detemir) 100 Unit/1 Ml Insuln.pen 60 Unit SQ HS 04/02/20 Reported Hydralazine Hcl 25 Mg Tablet 25 Mg PO BID 04/02/20 Reported Fluticasone Propionate Nasal [place] (Fluticasone Propionate) 16 Gm [place].susp 2 [place] NS DAILY 06/18/19 Reported Zolpidem Tartrate 5 Mg Tablet 5 Mg PO PRN QHS PRN 06/18/19 Reported Amlodipine Besylate 10 Mg Tablet 10 Mg PO DAILY 06/18/19 Reported Gabapentin 600 Mg Tablet 600 Mg PO BID 06/18/19 Reported Potassium Chloride (Potassium Chloride) 20 Meq Tablet.er 20 Meq PO BID 06/18/19 Reported Clopidogrel (Clopidogrel Bisulfate) 75 Mg Tablet 75 Mg PO DAILYWBKFT 75 11/10/17 Rx Proair Respiclick (Albuterol Sulfate) 90 Mcg Aer.pow.ba 2 Puff IH PRN Q4-6HRS PRN 09/08/16 Reported Cyclobenzaprine Hcl 10 Mg Tablet 1 Tab PO BID PRN 09/08/16 Reported Requip (Ropinirole Hcl) 1 Mg Tablet 1 Tab PO QHS 09/08/16 Reported Crestor (Rosuvastatin Calcium) 20 Mg Tablet 20 Mg PO HS 10/02/15 Reported LAST DOSE: 10/01/15 BEDTIME NEXT DOSE: 10/02/15 BEDTIME Oxybutynin Chloride 5 Mg Tablet 1 Tab PO DAILY 10/02/15 Reported LAST DOSE: 10/02/15 AM NEXT DOSE: 10/03/15 AM Comments CXR 01/10/21 IMPRESSION: Resolution of left pleural effusion. Unchanged bilateral opacities. CXR 01/07 IMPRESSION: 1. Diffuse interstitial prominence may be seen with interstitial pulmonary edema or atypical infectious/inflammatory process. 2. Support lines and tubes as above. 3. Mild cardiomegaly. Impression . 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 Echo 12/2019 with LVEF 45%, improved on cath on 12/07 Coronary artery disease with recent -- cath 12/07 showed patent long stented proximal to distal LAD. No lesions needing intervention were noted. Echo with LVEF 55 to 60%. Type 2 diabetes. Chronic obstructive pulmonary disease. Morbid obesity. Hypertension. Obstructive sleep apnea. MIRIAM cr trending down Plan . UPDATED 01/13/21 Continue current vent support A/C 40% and PEEP of 5 ABG/CXR reviewed Follow ID recs-- ABX---Zoysn Consult surgery for Trach Consult GI for PEG placement Follow cardiology recs-- Follow Nephrology recs-- monitor renal function Follow neurology recs--no plans for further testing at this time Nutritional Support DVT/GI PPX-- D/W RN and RT FULL CODE UPDATED 01/12/21 Continue current vent support A/C Follow ID recs-- ABX for aspiration PNA, Follow Cultures,Sputum culture positive for staph aureus-- 01/06 BC NGTD Consult surgery for possible PEG and Trach next week Follow cardiology recs-- Follow Nephrology recs Follow neurology recs--no plans for further testing at this time Nutritional Support DVT/GI PPX-- Sub Q heparin-- on hold for bloody secretion from ET tube D/W RN and RT D/W Family, poor prognosis, pt. remains a FULL CODE UPDATED 01/11/21 Continue current vent support A/C 16/450/5/40% ABG/CXR-- reviewed -- reduce Fi02 to 35% Follow ID recs-- ABX for aspiration PNA, Follow Cultures,Sputum culture positive for staph aureus-- 01/06 BC NGTD Follow cardiology recs-- Follow Nephrology recs--worsening renal function today Follow neurology recs--no plans for further testing at this time Nutritional Support DVT/GI PPX-- Sub Q heparin D/W RN and RT D/W Family, poor prognosis, pt. 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 Follow Nephrology recs Follow neurology recs-- anoxic brain injury/not brain /seizures-=- no further workup at this time --poor prognosis Nutritional Support DVT/GI PPX-- Sub Q heparin D/W RN and RT Dr.riffle Marroquin/Corey Braxton in regards to goals or care Updated 01/08 Continue current support Follow neurology input, EEG performed today Dr. 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 Follow Nephrology recs -- MIRIAM with improving renal function -- IVF Follow neurology recs-- anoxic brain injury/not brain --poor prognosis Nutritional Support DVT/GI PPX-- Sub Q heparin D/W RN and RT PLAN: 1. cont vent support setting reviewed, abg reviewed, personally decreased rr to 16 not alert enough to do sbt off sedation 2. cont antibiotics. 3. Monitor blood sugars. 4. Neurology consulted for questionable seizures. on anti sz meds 5. elevate hob 6. DVT and GI prophylaxis. 7. follow Cardiology rec, p.r.n. hydralazine for elevated blood pressure. 8. has le edema, le venous doppler no dvt discussed w rn rt RAF CADET MD Jan 13, 2021 16:15
[2021-01-13] MEDS: FAMOTIDINE 20 MG/2 ML VIAL IVP SCH (20:47)
[2021-01-13] MEDS: ATORVASTATIN CALCIUM 40 MG TABLET. PO SCH (20:51)
[2021-01-14] VITALS (23 sets, daily range): BP systolic 102–177; BP diastolic 50–96
[2021-01-14] MEDS: INSULIN LISPRO 300 UNITS/3 ML VIAL. SQ SCH ×3 (05:24→17:59)
[2021-01-14] MEDS: PIPERACILLIN/TAZOBACTAM 3.375 GM in IV NORMAL SALINE 50ML 50 ML IV SCH ×3 (05:24→17:26)
[2021-01-14] MEDS: HEPARIN for SUB-Q USE 5,000 UNIT/ML VIAL. SQ SCH ×3 (05:27→21:34)
[2021-01-14 06:13] LABS: BASO % 0 % (0-3); EOS # 0.3 x10^3/uL (0.0-0.7); EOS % 3 % (0-3); HEMATOCRIT 27.8 % (36.0-47.0); HEMOGLOBIN 8.7 g/dL (12.0-15.5); LYMPH # 1.4 x10^3/uL (1.0-4.8); LYMPH % 18 % (24-48); MEAN CORPUSCULAR HEMOGLOBIN 25 pg (25-35); MEAN CORPUSCULAR HGB CONC 31 g/dL (31-37); MEAN CORPUSCULAR VOLUME 79 fL (79-100); MONO # 1.2 x10^3/uL (0.0-1.1); MONO % 15 % (0-9); NEUT # 5.3 x10^3/uL (1.8-7.7); NEUT % 64 % (31-73); PLATELET COUNT 230 x10^3/uL (140-400); RED BLOOD COUNT 3.52 x10^6/uL (3.50-5.40); RED CELL DISTRIBUTION WIDTH 16.1 % (11.5-14.5); WHITE BLOOD COUNT 8.2 x10^3/uL (4.0-11.0)
[2021-01-14 06:46] LABS: ALBUMIN 1.8 g/dL (3.4-5.0); ALBUMIN/GLOBULIN RATIO 0.4 (1.0-1.7); CALCIUM 8.7 mg/dL (8.5-10.1); CREATININE 1.4 mg/dL (0.6-1.0); GFR 46.1; TOTAL BILIRUBIN 0.2 mg/dL (0.2-1.0); TOTAL PROTEIN 6.2 g/dL (6.4-8.2)
--- NOTE | 2021-01-14 07:36 | PDOC ---
Infectious Disease Note Subjective Subjective Intubated , does not respond to any commands Now has constant twitching of right upper extremity Patient condition remains unchanged per discussion with RN Vital Sign Vital Signs Vital Signs Date Time Temp Pulse Resp B/P (MAP) Pulse Ox O2 Delivery O2 Flow Rate FiO2 01/14/21 06:00 66 12 135/53 (80) 100 Ventilator 01/14/21 04:00 97.8 97.8 Physical Exam PHYSICAL EXAM GENERAL: Intubated, opens eyes transiently, does not follow any commands HEENT: Normocephalic, atraumatic. Tongue protruded, ETT /OGT + NECK: Supple though fullness due to body habitus. LUNGS: Decreased breath sounds. No wheezing. HEART: S1, S2. Distant heart sounds. ABDOMEN: Obese. Bowel sounds present. EXTREMITIES: Minimal edema. No cyanosis. NEUROLOGIC: Intubated,right upper extremity twitching Left IJ clean Labs Lab Laboratory Tests Test 01/13/21 07:50 01/13/21 08:00 01/13/21 11:29 01/13/21 18:10 White Blood Count 7.5 x10^3/uL (4.0-11.0) Red Blood Count 3.52 x10^6/uL (3.50-5.40) Hemoglobin 8.6 g/dL (12.0-15.5) Hematocrit 27.5 % (36.0-47.0) Mean Corpuscular Volume 78 fL (79-100) Mean Corpuscular Hemoglobin 24 pg (25-35) Mean Corpuscular Hemoglobin Concent 31 g/dL (31-37) Red Cell Distribution Width 16.0 % (11.5-14.5) Platelet Count 200 x10^3/uL (140-400) O2 Saturation 98 % (92-99) Arterial Blood pH 7.46 (7.35-7.45) Arterial Blood pCO2 at Patient Temp 49 mmHg (35-46) Arterial Blood pO2 at Patient Temp 129 mmHg (65-108) Arterial Blood HCO3 34 mmol/L (21-28) Arterial Blood Base Excess 9 mmol/L (-3-3) FiO2 40/vent Glucose (Fingerstick) 94 mg/dL (70-99) 95 mg/dL (70-99) Test 01/13/21 23:57 01/14/21 05:20 01/14/21 05:21 Glucose (Fingerstick) 99 mg/dL (70-99) 90 mg/dL (70-99) White Blood Count 8.2 x10^3/uL (4.0-11.0) Red Blood Count 3.52 x10^6/uL (3.50-5.40) Hemoglobin 8.7 g/dL (12.0-15.5) Hematocrit 27.8 % (36.0-47.0) Mean Corpuscular Volume 79 fL (79-100) Mean Corpuscular Hemoglobin 25 pg (25-35) Mean Corpuscular Hemoglobin Concent 31 g/dL (31-37) Red Cell Distribution Width 16.1 % (11.5-14.5) Platelet Count 230 x10^3/uL (140-400) Neutrophils (%) (Auto) 64 % (31-73) Lymphocytes (%) (Auto) 18 % (24-48) Monocytes (%) (Auto) 15 % (0-9) Eosinophils (%) (Auto) 3 % (0-3) Basophils (%) (Auto) 0 % (0-3) Neutrophils # (Auto) 5.3 x10^3/uL (1.8-7.7) Lymphocytes # (Auto) 1.4 x10^3/uL (1.0-4.8) Monocytes # (Auto) 1.2 x10^3/uL (0.0-1.1) Eosinophils # (Auto) 0.3 x10^3/uL (0.0-0.7) Basophils # (Auto) 0.0 x10^3/uL (0.0-0.2) Sodium Level 144 mmol/L (136-145) Potassium Level 4.0 mmol/L (3.5-5.1) Chloride Level 107 mmol/L (98-107) Carbon Dioxide Level 32 mmol/L (21-32) Anion Gap 5 (6-14) Blood Urea Nitrogen 20 mg/dL (7-20) Creatinine 1.4 mg/dL (0.6-1.0) Estimated GFR (Cockcroft-Gault) 46.1 BUN/Creatinine Ratio 14 (6-20) Glucose Level 88 mg/dL (70-99) Calcium Level 8.7 mg/dL (8.5-10.1) Total Bilirubin 0.2 mg/dL (0.2-1.0) Aspartate Amino Transf (AST/SGOT) 32 U/L (15-37) Alanine Aminotransferase (ALT/SGPT) 13 U/L (14-59) Alkaline Phosphatase 60 U/L (46-116) Total Protein 6.2 g/dL (6.4-8.2) Albumin 1.8 g/dL (3.4-5.0) Albumin/Globulin Ratio 0.4 (1.0-1.7) Micro Microbiology 01/06/21 Blood Culture - Final, Complete NO GROWTH AFTER 5 DAYS 01/05/21 Gram Stain Evaluation - Final, Complete 01/05/21 Respiratory Culture - Final, Complete 01/05/21 Antimicrobic Susceptibility - Final, Complete 01/04/21 Urine Culture - Final, Complete Objective Assessment 1. Fever. Resolved 2. Leukocytosis and lactic acidosis. Proving 3. Acute hypoxic respiratory failure. Status post intubation 4. Suspected aspiration pneumonia. Sputum culture positive for mssa 5. Status post cardiopulmonary arrest. 6. Questionable seizures. Encephalopathy 7. Diabetes mellitus 2. 8. Morbid obesity. 9. Obstructive sleep apnea. 10. Coronary artery disease. 11. Chronic kidney disease 12. Hypernatremia and hyperkalemia. 13 Gram-positive bacteremia bacteremia 2 out of 4 bottles present on admission staph epidermidis Plan Plan of Care 1. Continue Zosyn , off daptomycin 2. Follow up labs and cultures. Follow-up repeat blood cultures 01/06 negative so far 3. Continue supportive care. 4. Critically ill. 5. Prognosis poor. Discussed with nursing staff JENNY CRUZ MD Jan 14, 2021 07:36
[2021-01-14 08:10] LABS: BASE EXCESS ABG 6 mmol/L (-3-3); HCO3 ABG 31 mmol/L (21-28); PCO2 ABG 48 mmHg (35-46); PO2 ABG 108 mmHg (65-108); SAT O2 ABG 98 % (92-99)
[2021-01-14 08:13] LABS: FIO2 ABG 40
[2021-01-14] MEDS: hydrALAZINE 25 MG TABLET PO SCH ×2 (09:00→21:30)
--- NOTE | 2021-01-14 09:01 | PDOC ---
PROGRESS NOTES Date of Service DATE: 01/14/21 TIME: 08:59 Assessment Problems Medical Problems: (1) Acute renal failure Status: Acute (2) Altered mental status Status: Acute (3) Aspiration pneumonia Status: Acute (4) Hyperkalemia Status: Acute (5) Respiratory failure Status: Acute (6) Sepsis Status: Acute Metabolic encephalopathy, only has basic brainstem reflexes PLEDS and burst-suppression on EEG Respiratory failure, aspiration pneumonia, possible sepsis Acute STEMI, coronary artery disease status post stenting, chronic obstructive pulmonary disease, asthma, congestive heart failure, morbid obesity, renal failure, hyperkalemia, severe protein malnutrition, hypertensive urgency, hyper lipidemia, type 2 diabetes, obstructive sleep apnea, restless leg syndrome, peripheral neuropathy Plan Awaiting DNR decision from family. I have already spoken to patient's sister and daughter, co-grandmother, but son Lance remains only obstruction to moving things along here. Continue treating medical issues Aggressive treatment of the seizure activity is unlikely to affect outcome and would cloud the examination Overall prognosis is poor, but patient is not brain Subjective None Objective Vital Signs Date Time Temp Pulse Resp B/P (MAP) Pulse Ox O2 Delivery O2 Flow Rate FiO2 01/14/21 07:30 99 Ventilator 01/14/21 06:00 66 12 135/53 (80) 01/14/21 04:00 97.8 97.8 Intake and Output 01/14/21 07:00 Intake Total 2241.5 ml Output Total 1380 ml Balance 861.5 ml Intake IV Total 307.5 ml Tube Feeding 1604 ml Blood Product IV Normal Saline Flush 330 ml Output Urine Total 1380 ml PHYSICAL EXAM Has been off sedation since 01/05, no response to pain Triggers ventilator Does have myoclonic movements of right hand Pupils unreactive EOMI. roving eye movements CN: no focal findings. Muscle tone: normal. Muscle strength: No response DTR: 1+ Plantar reflex: Silent Gait: not examined Sensory exam: Not cooperative. Cerebellar: Not cooperative Review of Relevant I have reviewed the following items shady (where applicable) has been applied. Labs Laboratory Tests Test 01/12/21 11:37 01/12/21 17:33 01/12/21 23:49 01/13/21 06:00 Glucose (Fingerstick) 94 mg/dL (70-99) 79 mg/dL (70-99) 126 mg/dL (70-99) Sodium Level 145 mmol/L (136-145) Potassium Level 3.7 mmol/L (3.5-5.1) Chloride Level 108 mmol/L (98-107) Carbon Dioxide Level 31 mmol/L (21-32) Anion Gap 6 (6-14) Blood Urea Nitrogen 16 mg/dL (7-20) Creatinine 1.3 mg/dL (0.6-1.0) Estimated GFR (Cockcroft-Gault) 50.2 Glucose Level 96 mg/dL (70-99) Calcium Level 8.6 mg/dL (8.5-10.1) Magnesium Level 2.3 mg/dL (1.8-2.4) Test 01/13/21 06:09 01/13/21 07:50 01/13/21 08:00 01/13/21 11:29 Glucose (Fingerstick) 97 mg/dL (70-99) 94 mg/dL (70-99) White Blood Count 7.5 x10^3/uL (4.0-11.0) Red Blood Count 3.52 x10^6/uL (3.50-5.40) Hemoglobin 8.6 g/dL (12.0-15.5) Hematocrit 27.5 % (36.0-47.0) Mean Corpuscular Volume 78 fL (79-100) Mean Corpuscular Hemoglobin 24 pg (25-35) Mean Corpuscular Hemoglobin Concent 31 g/dL (31-37) Red Cell Distribution Width 16.0 % (11.5-14.5) Platelet Count 200 x10^3/uL (140-400) O2 Saturation 98 % (92-99) Arterial Blood pH 7.46 (7.35-7.45) Arterial Blood pCO2 at Patient Temp 49 mmHg (35-46) Arterial Blood pO2 at Patient Temp 129 mmHg (65-108) Arterial Blood HCO3 34 mmol/L (21-28) Arterial Blood Base Excess 9 mmol/L (-3-3) FiO2 40/vent Test 01/13/21 18:10 01/13/21 23:57 01/14/21 05:20 01/14/21 05:21 Glucose (Fingerstick) 95 mg/dL (70-99) 99 mg/dL (70-99) 90 mg/dL (70-99) White Blood Count 8.2 x10^3/uL (4.0-11.0) Red Blood Count 3.52 x10^6/uL (3.50-5.40) Hemoglobin 8.7 g/dL (12.0-15.5) Hematocrit 27.8 % (36.0-47.0) Mean Corpuscular Volume 79 fL (79-100) Mean Corpuscular Hemoglobin 25 pg (25-35) Mean Corpuscular Hemoglobin Concent 31 g/dL (31-37) Red Cell Distribution Width 16.1 % (11.5-14.5) Platelet Count 230 x10^3/uL (140-400) Neutrophils (%) (Auto) 64 % (31-73) Lymphocytes (%) (Auto) 18 % (24-48) Monocytes (%) (Auto) 15 % (0-9) Eosinophils (%) (Auto) 3 % (0-3) Basophils (%) (Auto) 0 % (0-3) Neutrophils # (Auto) 5.3 x10^3/uL (1.8-7.7) Lymphocytes # (Auto) 1.4 x10^3/uL (1.0-4.8) Monocytes # (Auto) 1.2 x10^3/uL (0.0-1.1) Eosinophils # (Auto) 0.3 x10^3/uL (0.0-0.7) Basophils # (Auto) 0.0 x10^3/uL (0.0-0.2) Sodium Level 144 mmol/L (136-145) Potassium Level 4.0 mmol/L (3.5-5.1) Chloride Level 107 mmol/L (98-107) Carbon Dioxide Level 32 mmol/L (21-32) Anion Gap 5 (6-14) Blood Urea Nitrogen 20 mg/dL (7-20) Creatinine 1.4 mg/dL (0.6-1.0) Estimated GFR (Cockcroft-Gault) 46.1 BUN/Creatinine Ratio 14 (6-20) Glucose Level 88 mg/dL (70-99) Calcium Level 8.7 mg/dL (8.5-10.1) Total Bilirubin 0.2 mg/dL (0.2-1.0) Aspartate Amino Transf (AST/SGOT) 32 U/L (15-37) Alanine Aminotransferase (ALT/SGPT) 13 U/L (14-59) Alkaline Phosphatase 60 U/L (46-116) Total Protein 6.2 g/dL (6.4-8.2) Albumin 1.8 g/dL (3.4-5.0) Albumin/Globulin Ratio 0.4 (1.0-1.7) Test 01/14/21 07:30 O2 Saturation 98 % (92-99) Arterial Blood pH 7.43 (7.35-7.45) Arterial Blood pCO2 at Patient Temp 48 mmHg (35-46) Arterial Blood pO2 at Patient Temp 108 mmHg (65-108) Arterial Blood HCO3 31 mmol/L (21-28) Arterial Blood Base Excess 6 mmol/L (-3-3) FiO2 40 Laboratory Tests Test 01/13/21 11:29 01/13/21 18:10 01/13/21 23:57 01/14/21 05:20 Glucose (Fingerstick) 94 mg/dL (70-99) 95 mg/dL (70-99) 99 mg/dL (70-99) White Blood Count 8.2 x10^3/uL (4.0-11.0) Red Blood Count 3.52 x10^6/uL (3.50-5.40) Hemoglobin 8.7 g/dL (12.0-15.5) Hematocrit 27.8 % (36.0-47.0) Mean Corpuscular Volume 79 fL (79-100) Mean Corpuscular Hemoglobin 25 pg (25-35) Mean Corpuscular Hemoglobin Concent 31 g/dL (31-37) Red Cell Distribution Width 16.1 % (11.5-14.5) Platelet Count 230 x10^3/uL (140-400) Neutrophils (%) (Auto) 64 % (31-73) Lymphocytes (%) (Auto) 18 % (24-48) Monocytes (%) (Auto) 15 % (0-9) Eosinophils (%) (Auto) 3 % (0-3) Basophils (%) (Auto) 0 % (0-3) Neutrophils # (Auto) 5.3 x10^3/uL (1.8-7.7) Lymphocytes # (Auto) 1.4 x10^3/uL (1.0-4.8) Monocytes # (Auto) 1.2 x10^3/uL (0.0-1.1) Eosinophils # (Auto) 0.3 x10^3/uL (0.0-0.7) Basophils # (Auto) 0.0 x10^3/uL (0.0-0.2) Sodium Level 144 mmol/L (136-145) Potassium Level 4.0 mmol/L (3.5-5.1) Chloride Level 107 mmol/L (98-107) Carbon Dioxide Level 32 mmol/L (21-32) Anion Gap 5 (6-14) Blood Urea Nitrogen 20 mg/dL (7-20) Creatinine 1.4 mg/dL (0.6-1.0) Estimated GFR (Cockcroft-Gault) 46.1 BUN/Creatinine Ratio 14 (6-20) Glucose Level 88 mg/dL (70-99) Calcium Level 8.7 mg/dL (8.5-10.1) Total Bilirubin 0.2 mg/dL (0.2-1.0) Aspartate Amino Transf (AST/SGOT) 32 U/L (15-37) Alanine Aminotransferase (ALT/SGPT) 13 U/L (14-59) Alkaline Phosphatase 60 U/L (46-116) Total Protein 6.2 g/dL (6.4-8.2) Albumin 1.8 g/dL (3.4-5.0) Albumin/Globulin Ratio 0.4 (1.0-1.7) Test 01/14/21 05:21 01/14/21 07:30 Glucose (Fingerstick) 90 mg/dL (70-99) O2 Saturation 98 % (92-99) Arterial Blood pH 7.43 (7.35-7.45) Arterial Blood pCO2 at Patient Temp 48 mmHg (35-46) Arterial Blood pO2 at Patient Temp 108 mmHg (65-108) Arterial Blood HCO3 31 mmol/L (21-28) Arterial Blood Base Excess 6 mmol/L (-3-3) FiO2 40 Microbiology 01/06/21 Blood Culture - Final, Complete NO GROWTH AFTER 5 DAYS 01/05/21 Gram Stain Evaluation - Final, Complete 01/05/21 Respiratory Culture - Final, Complete 01/05/21 Antimicrobic Susceptibility - Final, Complete 01/04/21 Urine Culture - Final, Complete Medications Current Medications Amiodarone HCl 450 mg/Dextrose 259 ml @ 33 mls/hr 1X ONCE IV Last administered on 01/04/21at 11:40; Start 01/04/21 at 11:15; Stop 01/04/21 at 19:05; Status DC Midazolam HCl 100 ml @ 1 mls/hr 1X ONCE IV Last administered on 01/04/21at 11:39; Start 01/04/21 at 11:30; Stop 01/05/21 at 09:51; Status DC Sodium Chloride 1,000 ml @ 1,000 mls/hr 1X ONCE IV Last administered on 01/04/21at 12:13; Start 01/04/21 at 11:45; Stop 01/04/21 at 12:44; Status DC Sodium Bicarbonate (Sodium Bicarb Adult 8.4% Syr) 50 meq 1X ONCE IV Last administered on 01/04/21at 12:55; Start 01/04/21 at 12:00; Stop 01/04/21 at 12:01; Status DC Dextrose (Dextrose 50%-Water Syringe) 25 gm 1X ONCE IV Last administered on 01/04/21at 12:53; Start 01/04/21 at 12:00; Stop 01/04/21 at 12:01; Status DC Insulin Human Regular (HumuLIN R VIAL) 10 unit 1X ONCE IV Last administered on 01/04/21at 12:52; Start 01/04/21 at 12:00; Stop 01/04/21 at 12:01; Status DC Piperacillin Sod/ Tazobactam Sod 3.375 gm/Sodium Chloride 50 ml @ 100 mls/hr 1X ONCE IV Last administered on 01/04/21at 12:12; Start 01/04/21 at 12:00; Stop 01/04/21 at 12:29; Status DC Succinylcholine Chloride (Anectine) 100 mg 1X ONCE IV Last administered on 01/04/21at 11:03; Start 01/04/21 at 12:45; Stop 01/04/21 at 12:46; Status DC Etomidate (Amidate) 20 mg 1X ONCE IV Last administered on 01/04/21at 11:02; Start 01/04/21 at 12:45; Stop 01/04/21 at 12:46; Status DC Rocuronium [place] (Zemuron) 100 mg 1X ONCE IV ; Start 01/04/21 at 12:45; Stop 01/04/21 at 12:46; Status Cancel Midazolam HCl (Versed) 5 mg 1X ONCE IV Last administered on 01/04/21at 11:30; Start 01/04/21 at 12:45; Stop 01/04/21 at 12:46; Status DC Rocuronium [place] (Zemuron) 100 mg 1X ONCE IV Last administered on 01/04/21at 11:33; Start 01/04/21 at 12:45; Stop 01/04/21 at 12:46; Status DC Ondansetron HCl (Zofran) 4 mg PRN Q8HRS PRN IV NAUSEA/VOMITING; Start 01/04/21 at 13:00; Stop 01/05/21 at 09:48; Status DC Sodium Chloride 1,000 ml @ 100 mls/hr Q10H IV Last administered on 01/05/21at 09:41; Start 01/04/21 at 13:00; Stop 01/05/21 at 12:59; Status DC Ondansetron HCl (Zofran) 4 mg PRN Q6HRS PRN IVP NAUSEA/VOMITING; Start 01/04/21 at 14:00 Famotidine (Pepcid Vial) 20 mg QHS IVP Last administered on 01/13/21at 20:47; Start 01/04/21 at 21:00 Heparin Sodium (Porcine) (Heparin Sodium) 5,000 unit Q8HRS SQ Last administered on 01/14/21at 05:27; Start 01/04/21 at 14:00 Sodium Chloride (Normal Saline Flush) 3 ml QSHIFT PRN IV AFTER MEDS AND BLOOD DRAWS; Start 01/04/21 at 14:00 Bisacodyl (Dulcolax Supp) 10 mg PRN DAILY PRN [place] CONSTIPATION; Start 01/04/21 at 14:00 Piperacillin Sod/ Tazobactam Sod (Zosyn Per Pharmacy) 1 each PRN DAILY PRN MC SEE COMMENTS; Start 01/04/21 at 14:00; Stop 01/04/21 at 17:48; Status DC Piperacillin Sod/ Tazobactam Sod 2.25 gm/Sodium Chloride 50 ml @ 100 mls/hr Q6HRS IV ; Start 01/04/21 at 18:00; Stop 01/04/21 at 17:49; Status DC Dextrose (Dextrose 50%-Water Syringe) 25 gm 1X ONCE IV Last administered on at 16:21; Start 01/04/21 at 16:15; Stop 01/04/21 at 16:16; Status DC Meropenem 500 mg/ Sodium Chloride 50 ml @ 100 mls/hr Q8HRS IV ; Start 01/04/21 at 18:00; Status Cancel Piperacillin Sod/ Tazobactam Sod 2.25 gm/Sodium Chloride 50 ml @ 100 mls/hr Q8HRS IV Last administered on 01/08/21at 06:01; Start 01/04/21 at 22:00; Stop 01/08/21 at 07:50; Status DC Linezolid/Dextrose 300 ml @ 300 mls/hr Q12HR IV Last administered on 01/07/21at 21:23; Start 01/04/21 at 21:00; Stop 01/08/21 at 10:41; Status DC Valproic Acid 500 mg/Dextrose 55 ml @ 55 mls/hr Q12HR IV Last administered on 01/05/21at 09:40; Start 01/05/21 at 09:00; Stop 01/05/21 at 17:28; Status DC Valproic Acid 1000 mg/Dextrose 60 ml @ 60 mls/hr 1X ONCE IV Last administered on 01/04/21at 19:30; Start 01/04/21 at 19:30; Stop 01/04/21 at 20:29; Status DC Lorazepam (Ativan Inj) 2 mg PRN Q2HRS PRN IVP ANXIETY / AGITATION Last administered on 01/05/21at 23:30; Start 01/04/21 at 19:30; Stop 01/08/21 at 08:16; Status DC Hydralazine HCl (Apresoline Inj) 10 mg PRN Q6HRS PRN IVP ELEVATED BP, SEE COMMENTS Last administered on 01/10/21at 13:25; Start 01/04/21 at 19:45 Amiodarone HCl 450 mg/Dextrose 259 ml @ 33 mls/hr CONT PRN IV SEE I/O RECORD Last administered on 01/05/21at 11:50; Start 01/04/21 at 20:15; Stop 01/05/21 at 11:50; Status DC Midazolam HCl 100 ml @ 1 mls/hr CONT PRN IV SEE I/O RECORD Last administered on 01/05/21at 02:00; Start 01/05/21 at 02:00; Stop 01/08/21 at 08:16; Status DC Daptomycin 600 mg/ Sodium Chloride 50 ml @ 100 mls/hr Q48H IV Last administered on 01/07/21at 15:40; Start 01/05/21 at 16:00; Stop 01/08/21 at 07:52; Status DC Scopolamine (Transderm-Scop) 1 patch Q3DAYS TD Last administered on 01/08/21at 08:08; Start 01/05/21 at 17:00; Stop 01/08/21 at 08:16; Status DC Valproic Acid 750 mg/Dextrose 57.5 ml @ 57.5 mls/hr Q12HR IV Last administered on 01/13/21at 20:47; Start 01/05/21 at 21:00 Insulin Human Lispro (HumaLOG) 0-5 UNITS TIDWMEALS SQ Last administered on 01/05/21at 18:27; Start 01/05/21 at 18:30; Stop 01/06/21 at 08:42; Status DC Dextrose (Dextrose 50%-Water Syringe) 12.5 gm PRN Q15MIN PRN IV SEE COMMENTS; Start 01/05/21 at 18:15 Amiodarone HCl 450 mg/Dextrose 259 ml @ 0 mls/hr 1X ONCE IV Last administered on 01/06/21at 02:00; Start 01/06/21 at 02:00; Stop 01/06/21 at 02:01; Status DC Insulin Human Lispro (HumaLOG) 0-5 UNITS Q6HRS SQ ; Start 01/06/21 at 12:00 Amiodarone HCl 450 mg/Dextrose 259 ml @ 0 mls/hr 1X ONCE IV Last administered on 01/06/21at 17:05; Start 01/06/21 at 17:00; Stop 01/06/21 at 17:01; Status DC Amiodarone HCl (Cordarone) 400 mg DAILY PO ; Start 01/07/21 at 14:00; Stop 01/07/21 at 13:15; Status DC Multi-Ingred Cream/Lotion/Oil/ Oint (Artificial Tears Eye Ointment) 1 chio PRN Q1HR PRN OU DRY EYE Last administered on 01/07/21at 14:14; Start 01/07/21 at 13:00 Aspirin (Blessing Aspirin) 325 mg DAILY PO Last administered on 01/08/21at 08:12; Start 01/08/21 at 09:00; Stop 01/09/21 at 09:16; Status DC Clopidogrel Bisulfate (Plavix) 75 mg DAILYWBKFT PO Last administered on 01/13/21at 09:18; Start 01/08/21 at 08:00 Hydralazine HCl (Apresoline) 25 mg BID PO Last administered on 01/13/21at 20:52; Start 01/07/21 at 21:00 Metoprolol Succinate (Toprol Xl) 25 mg DAILY PO ; Start 01/08/21 at 09:00; Stop 01/08/21 at 07:44; Status DC Isosorbide Mononitrate (Imdur) 120 mg DAILY PO ; Start 01/08/21 at 09:00; Stop 01/08/21 at 08:16; Status DC Losartan Potassium (Cozaar) 100 mg DAILY PO Last administered on 01/13/21at 09:13; Start 01/08/21 at 09:00 Atorvastatin Calcium (Lipitor) 80 mg QHS PO Last administered on 01/13/21at 20:51; Start 01/07/21 at 21:00 Epinephrine HCl (EPINEPHrine SYRINGE) 2 mg STK-MED ONCE .ROUTE ; Start 01/04/21 at 11:00; Stop 01/07/21 at 17:12; Status DC Amiodarone HCl (Cordarone) 300 mg STK-MED ONCE .ROUTE ; Start 01/04/21 at 11:00; Stop 01/07/21 at 17:12; Status DC Metoprolol Tartrate (Lopressor) 12.5 mg BID PO Last administered on 01/13/21at 20:51; Start 01/08/21 at 09:00 Piperacillin Sod/ Tazobactam Sod 3.375 gm/Sodium Chloride 50 ml @ 100 mls/hr Q6HRS IV Last administered on 01/14/21at 05:24; Start 01/08/21 at 12:00 Daptomycin 600 mg/ Sodium Chloride 50 ml @ 100 mls/hr Q24H IV Last administered on 01/11/21at 15:56; Start 01/08/21 at 16:00; Stop 01/12/21 at 09:34; Status DC Isosorbide Mononitrate (Ismo) 20 mg BID92 PO Last administered on 01/13/21at 14:40; Start 01/08/21 at 09:00 Aspirin (Aspirin Chewable) 81 mg DAILYWBKFT PO Last administered on 01/13/21 09:12; Start 01/08/21 at 08:30 Glycopyrrolate (Robinul) 1 mg PRN DAILY PRN IV Secretions Last administered on 01/13/21 09:13; Start 01/08/21 at 08:45 Potassium Chloride/Water 100 ml @ 100 mls/hr Q1H IV Last administered on 01/08/21 13:37; Start 01/08/21 at 12:00; Stop 01/08/21 at 13:59; Status DC Potassium Bicarbonate (Potassium Effervescent Tablet) 40 meq 1X ONCE PEG Last administered on 01/09/21at 11:02; Start 01/09/21 at 09:30; Stop 01/09/21 at 09:31; Status DC Potassium Bicarbonate (Potassium Effervescent Tablet) 40 meq 1X ONCE PO Last administered on 01/10/21at 07:19; Start 01/10/21 at 08:00; Stop 01/10/21 at 08:01; Status DC Furosemide (Lasix) 40 mg 1X ONCE IVP Last administered on 01/10/21at 17:48; Start 01/10/21 at 17:45; Stop 01/10/21 at 17:46; Status DC Potassium Bicarbonate (Potassium Effervescent Tablet) 40 meq 1X ONCE PEG Last administered on 01/10/21at 19:15; Start 01/10/21 at 19:00; Stop 01/10/21 at 19:01; Status DC Active Scripts Active Promethazine Hcl 12.5 Mg Tablet 12.5 Mg PO PRN Q6HRS PRN 30 Days Metoprolol Succinate ( Xl ) (Metoprolol Succinate) 25 Mg Tab.er.24h 25 Mg PO DAILY 30 Days Pantoprazole Sodium (Pantoprazole Sodium) 40 Mg Tablet.dr 40 Mg PO BIDAC 30 Days Clopidogrel (Clopidogrel Bisulfate) 75 Mg Tablet 75 Mg PO DAILYWBKFT 75 Days Reported Voltaren (Diclofenac Sodium) 100 Gm Gel..gram. 1 Gm TP QID 30 Days apply to affected area(s) Nystatin 15 Gm Powder 1 [place] TP BID 7 Days apply to affected area(s) Ondansetron Odt (Ondansetron) 4 Mg Tab.rapdis 1 Tab PO PRN Q8HRS PRN Reglan (Metoclopramide Hcl) 10 Mg Tablet 1 Tab PO QID 30 Days before food and bedtime Losartan Potassium 100 Mg Tablet 100 Mg PO DAILY Aspirin 325 Mg Tablet 1 Tab PO DAILY Metformin Hcl 500 Mg Tablet 500 Mg PO BIDWMEALS Bumetanide 1 Mg Tablet 1 Mg PO BID Insulin Aspart 100 Unit/1 Ml Vial 60 Unit SQ TIDAC novolg flex pen Isosorbide Mononitrate Er (Isosorbide Mononitrate) 120 Mg Tab.er.24h 120 Mg PO DAILY NITROGLYCERIN SubLingual (Nitroglycerin) 0.4 Mg Tab.subl 0.4 Mg SL PRN Q5MIN PRN Albuterol Sulfate Neb Soln (Albuterol Sulfate) 2.5 Mg/3 Ml Vial.neb 2.5 Mg NEB Q4-6HRS PRN Levemir Flextouch (Insulin Detemir) 100 Unit/1 Ml Insuln.pen 60 Unit SQ HS Hydralazine Hcl 25 Mg Tablet 25 Mg PO BID Fluticasone Propionate Nasal [place] (Fluticasone Propionate) 16 Gm [place].susp 2 [place] NS DAILY Zolpidem Tartrate 5 Mg Tablet 5 Mg PO PRN QHS PRN Amlodipine Besylate 10 Mg Tablet 10 Mg PO DAILY Gabapentin 600 Mg Tablet 600 Mg PO BID Potassium Chloride (Potassium Chloride) 20 Meq Tablet.er 20 Meq PO BID Proair Respiclick (Albuterol Sulfate) 90 Mcg Aer.pow.ba 2 Puff IH PRN Q4-6HRS PRN Cyclobenzaprine Hcl 10 Mg Tablet 1 Tab PO BID PRN Requip (Ropinirole Hcl) 1 Mg Tablet 1 Tab PO QHS Crestor (Rosuvastatin Calcium) 20 Mg Tablet 20 Mg PO HS LAST DOSE: 10/01/15 BEDTIME NEXT DOSE: 10/02/15 BEDTIME Oxybutynin Chloride 5 Mg Tablet 1 Tab PO DAILY LAST DOSE: 10/02/15 AM NEXT DOSE: 10/03/15 AM Vitals/I & O Vital Sign - Last 24 Hours 01/13/21 01/13/21 01/13/21 01/13/21 09:00 09:07 09:13 09:13 Pulse 81 74 74 Resp 12 B/P (MAP) 124/52 (76) 129/93 129/93 Pulse Ox 98 95 O2 Delivery Ventilator Ventilator 01/13/21 01/13/21 01/13/21 01/13/21 09:14 09:14 10:00 11:00 Pulse 74 74 77 74 Resp 12 12 B/P (MAP) 129/93 129/93 112/64 (80) 114/65 (81) Pulse Ox 99 100 O2 Delivery Ventilator Ventilator 01/13/21 01/13/21 01/13/21 01/13/21 12:00 12:00 12:11 13:00 Temp 99.2 99.2 Pulse 74 72 Resp 12 12 B/P (MAP) 136/71 (92) 140/70 (93) Pulse Ox 100 95 100 O2 Delivery Mechanical Ventilator Ventilator Ventilator Ventilator 01/13/21 01/13/21 01/13/21 01/13/21 13:37 14:00 14:40 15:00 Pulse 67 67 66 Resp 12 12 B/P (MAP) 121/52 (75) 121/52 119/64 (82) Pulse Ox 95 100 100 O2 Delivery Ventilator Ventilator Ventilator 01/13/21 01/13/21 01/13/21 01/13/21 15:37 16:00 16:03 16:58 Temp 98.9 98.9 Pulse 65 64 Resp 12 12 B/P (MAP) 103/41 (61) 114/50 (71) Pulse Ox 100 100 100 O2 Delivery Mechanical Ventilator Ventilator Ventilator Ventilator 01/13/21 01/13/21 01/13/21 01/13/21 17:56 18:00 19:00 20:00 Pulse 62 73 Resp 12 12 B/P (MAP) 118/54 (75) 148/74 (98) Pulse Ox 100 100 99 O2 Delivery Ventilator Ventilator Ventilator Mechanical Ventilator 01/13/21 01/13/21 01/13/21 01/13/21 20:00 20:36 20:51 20:52 Temp 98.0 98.0 Pulse 69 69 69 Resp 12 B/P (MAP) 132/63 (86) 132/63 132/63 Pulse Ox 99 100 O2 Delivery Ventilator Ventilator 601/13/21 01/13/21 01/13/21 21:00 22:00 22:15 23:00 Pulse 75 66 69 Resp 12 12 12 B/P (MAP) 137/63 (87) 166/64 (98) 166/68 (100) Pulse Ox 100 99 100 100 O2 Delivery Ventilator Ventilator Ventilator Ventilator 01/13/21 01/13/21 01/14/21 01/14/21 23:59 23:59 00:25 01:00 Temp 98.2 98.2 Pulse 69 71 Resp 12 12 B/P (MAP) 141/62 (88) 133/75 (94) Pulse Ox 98 100 100 O2 Delivery Ventilator Mechanical Ventilator Ventilator Ventilator 01/14/21 01/14/21 01/14/21 01/14/21 02:00 03:00 03:57 04:00 Pulse 74 71 Resp 12 12 B/P (MAP) 156/56 (89) 110/55 (73) Pulse Ox 99 99 100 O2 Delivery Ventilator Ventilator Ventilator Mechanical Ventilator 01/14/21 01/14/21 01/14/21 01/14/21 04:00 05:02 05:41 06:00 Temp 97.8 97.8 Pulse 68 68 66 Resp 12 12 12 B/P (MAP) 149/57 (87) 149/57 (87) 135/53 (80) Pulse Ox 100 100 100 100 O2 Delivery Ventilator Ventilator Ventilator Ventilator 01/14/21 07:30 Pulse Ox 99 O2 Delivery Ventilator Intake and Output 01/13/21 01/13/21 01/14/21 15:00 23:00 07:00 Intake Total 620 ml 477.5 ml 1144 ml Output Total 595 ml 360 ml 425 ml Balance 25 ml 117.5 ml 719 ml Justicifation of Admission Dx: Justifications for Admission: Justification of Admission Dx: Yes SWATHI BOOTH MD Jan 14, 2021 09:01
--- NOTE | 2021-01-14 10:37 | PDOC ---
Renal-Progress Notes Subjective Notes Notes ON THE VENT History of Present Illness Hx of present illness CONTINUES TO HAVE SEIZURES Vitals Vitals Vital Signs Date Time Temp Pulse Resp B/P (MAP) Pulse Ox O2 Delivery O2 Flow Rate FiO2 01/14/21 07:30 99 Ventilator 01/14/21 06:00 66 12 135/53 (80) 01/14/21 04:00 97.8 97.8 Weight Weight [ ] I.O. Intake and Output Intake and Output 01/14/21 07:00 Intake Total 2241.5 ml Output Total 1380 ml Balance 861.5 ml Intake IV Total 307.5 ml Tube Feeding 1604 ml Blood Product IV Normal Saline Flush 330 ml Output Urine Total 1380 ml Labs Labs Laboratory Tests Test 01/13/21 11:29 01/13/21 18:10 01/13/21 23:57 01/14/21 05:20 Glucose (Fingerstick) 94 mg/dL (70-99) 95 mg/dL (70-99) 99 mg/dL (70-99) White Blood Count 8.2 x10^3/uL (4.0-11.0) Red Blood Count 3.52 x10^6/uL (3.50-5.40) Hemoglobin 8.7 g/dL (12.0-15.5) Hematocrit 27.8 % (36.0-47.0) Mean Corpuscular Volume 79 fL (79-100) Mean Corpuscular Hemoglobin 25 pg (25-35) Mean Corpuscular Hemoglobin Concent 31 g/dL (31-37) Red Cell Distribution Width 16.1 % (11.5-14.5) Platelet Count 230 x10^3/uL (140-400) Neutrophils (%) (Auto) 64 % (31-73) Lymphocytes (%) (Auto) 18 % (24-48) Monocytes (%) (Auto) 15 % (0-9) Eosinophils (%) (Auto) 3 % (0-3) Basophils (%) (Auto) 0 % (0-3) Neutrophils # (Auto) 5.3 x10^3/uL (1.8-7.7) Lymphocytes # (Auto) 1.4 x10^3/uL (1.0-4.8) Monocytes # (Auto) 1.2 x10^3/uL (0.0-1.1) Eosinophils # (Auto) 0.3 x10^3/uL (0.0-0.7) Basophils # (Auto) 0.0 x10^3/uL (0.0-0.2) Sodium Level 144 mmol/L (136-145) Potassium Level 4.0 mmol/L (3.5-5.1) Chloride Level 107 mmol/L (98-107) Carbon Dioxide Level 32 mmol/L (21-32) Anion Gap 5 (6-14) Blood Urea Nitrogen 20 mg/dL (7-20) Creatinine 1.4 mg/dL (0.6-1.0) Estimated GFR (Cockcroft-Gault) 46.1 BUN/Creatinine Ratio 14 (6-20) Glucose Level 88 mg/dL (70-99) Calcium Level 8.7 mg/dL (8.5-10.1) Total Bilirubin 0.2 mg/dL (0.2-1.0) Aspartate Amino Transf (AST/SGOT) 32 U/L (15-37) Alanine Aminotransferase (ALT/SGPT) 13 U/L (14-59) Alkaline Phosphatase 60 U/L (46-116) Total Protein 6.2 g/dL (6.4-8.2) Albumin 1.8 g/dL (3.4-5.0) Albumin/Globulin Ratio 0.4 (1.0-1.7) Test 01/14/21 05:21 01/14/21 07:30 Glucose (Fingerstick) 90 mg/dL (70-99) O2 Saturation 98 % (92-99) Arterial Blood pH 7.43 (7.35-7.45) Arterial Blood pCO2 at Patient Temp 48 mmHg (35-46) Arterial Blood pO2 at Patient Temp 108 mmHg (65-108) Arterial Blood HCO3 31 mmol/L (21-28) Arterial Blood Base Excess 6 mmol/L (-3-3) FiO2 40 Micro Micro Microbiology 01/06/21 Blood Culture - Final, Complete NO GROWTH AFTER 5 DAYS 01/05/21 Gram Stain Evaluation - Final, Complete 01/05/21 Respiratory Culture - Final, Complete 01/05/21 Antimicrobic Susceptibility - Final, Complete 01/04/21 Urine Culture - Final, Complete Review of Systems Constitutional: yes: unresponsive Physical Exam General Appearance: no apparent distress, febrile Respiratory: ventilator (Mode:A/C), decreased breath sounds Heart: S1S2 Abdomen: soft Genitourinary: bladder flat Extremities: pulses present, no edema Neurology: other (off sedation. Pupils fixed. not following commands ) Assessment Assessment IMP [id number] OF 2.4 TO 1.4 HYPERNATREMIA-RESOLVED HYPOKALEMIA-CORRECTED ACUTE RESP FAILURE PROB PNEUMONIA DM II DIONNE OBESITY BACTEREMIA SEIZURES PLAN ANTIBIOTICS CONT WATER FLUSHES CONT WITH TF VENT SUPPORT REMAINS CRITICALLY ILL NEUROLOGY EVAL AND TX APPRECIATE NEUROLOGY WILL FOLLOW PRN EFE PRICE MD Jan 14, 2021 10:37
--- NOTE | 2021-01-14 10:58 | PDOC ---
PULMONARY PROGRESS NOTES DATE: 01/14/21 TIME: 10:58 Subjective Pt. remains on vent support AC mode 40% remains on unresponsive ongoing seizure activity Vitals Vital Signs Date Time Temp Pulse Resp B/P (MAP) Pulse Ox O2 Delivery O2 Flow Rate FiO2 01/14/21 07:30 99 Ventilator 01/14/21 06:00 66 12 135/53 (80) 01/14/21 04:00 97.8 97.8 Comments unable to obtain 2/2 clinical state HEENT: Other (nc at perrl nose clear orally intubated neck no lad no thyromegaly ) Lungs: Crackles Cardiovascular: S1, S2 Abdomen: Soft, Non-tender, Other (no mass obese) Extremities: Other (edema) Skin: Warm Labs Laboratory Tests Test 01/12/21 11:37 01/12/21 17:33 01/12/21 23:49 01/13/21 06:00 Glucose (Fingerstick) 94 mg/dL (70-99) 79 mg/dL (70-99) 126 mg/dL (70-99) Sodium Level 145 mmol/L (136-145) Potassium Level 3.7 mmol/L (3.5-5.1) Chloride Level 108 mmol/L (98-107) Carbon Dioxide Level 31 mmol/L (21-32) Anion Gap 6 (6-14) Blood Urea Nitrogen 16 mg/dL (7-20) Creatinine 1.3 mg/dL (0.6-1.0) Estimated GFR (Cockcroft-Gault) 50.2 Glucose Level 96 mg/dL (70-99) Calcium Level 8.6 mg/dL (8.5-10.1) Magnesium Level 2.3 mg/dL (1.8-2.4) Test 01/13/21 06:09 01/13/21 07:50 01/13/21 08:00 01/13/21 11:29 Glucose (Fingerstick) 97 mg/dL (70-99) 94 mg/dL (70-99) White Blood Count 7.5 x10^3/uL (4.0-11.0) Red Blood Count 3.52 x10^6/uL (3.50-5.40) Hemoglobin 8.6 g/dL (12.0-15.5) Hematocrit 27.5 % (36.0-47.0) Mean Corpuscular Volume 78 fL (79-100) Mean Corpuscular Hemoglobin 24 pg (25-35) Mean Corpuscular Hemoglobin Concent 31 g/dL (31-37) Red Cell Distribution Width 16.0 % (11.5-14.5) Platelet Count 200 x10^3/uL (140-400) O2 Saturation 98 % (92-99) Arterial Blood pH 7.46 (7.35-7.45) Arterial Blood pCO2 at Patient Temp 49 mmHg (35-46) Arterial Blood pO2 at Patient Temp 129 mmHg (65-108) Arterial Blood HCO3 34 mmol/L (21-28) Arterial Blood Base Excess 9 mmol/L (-3-3) FiO2 40/vent Test 01/13/21 18:10 01/13/21 23:57 01/14/21 05:20 01/14/21 05:21 Glucose (Fingerstick) 95 mg/dL (70-99) 99 mg/dL (70-99) 90 mg/dL (70-99) White Blood Count 8.2 x10^3/uL (4.0-11.0) Red Blood Count 3.52 x10^6/uL (3.50-5.40) Hemoglobin 8.7 g/dL (12.0-15.5) Hematocrit 27.8 % (36.0-47.0) Mean Corpuscular Volume 79 fL (79-100) Mean Corpuscular Hemoglobin 25 pg (25-35) Mean Corpuscular Hemoglobin Concent 31 g/dL (31-37) Red Cell Distribution Width 16.1 % (11.5-14.5) Platelet Count 230 x10^3/uL (140-400) Neutrophils (%) (Auto) 64 % (31-73) Lymphocytes (%) (Auto) 18 % (24-48) Monocytes (%) (Auto) 15 % (0-9) Eosinophils (%) (Auto) 3 % (0-3) Basophils (%) (Auto) 0 % (0-3) Neutrophils # (Auto) 5.3 x10^3/uL (1.8-7.7) Lymphocytes # (Auto) 1.4 x10^3/uL (1.0-4.8) Monocytes # (Auto) 1.2 x10^3/uL (0.0-1.1) Eosinophils # (Auto) 0.3 x10^3/uL (0.0-0.7) Basophils # (Auto) 0.0 x10^3/uL (0.0-0.2) Sodium Level 144 mmol/L (136-145) Potassium Level 4.0 mmol/L (3.5-5.1) Chloride Level 107 mmol/L (98-107) Carbon Dioxide Level 32 mmol/L (21-32) Anion Gap 5 (6-14) Blood Urea Nitrogen 20 mg/dL (7-20) Creatinine 1.4 mg/dL (0.6-1.0) Estimated GFR (Cockcroft-Gault) 46.1 BUN/Creatinine Ratio 14 (6-20) Glucose Level 88 mg/dL (70-99) Calcium Level 8.7 mg/dL (8.5-10.1) Total Bilirubin 0.2 mg/dL (0.2-1.0) Aspartate Amino Transf (AST/SGOT) 32 U/L (15-37) Alanine Aminotransferase (ALT/SGPT) 13 U/L (14-59) Alkaline Phosphatase 60 U/L (46-116) Total Protein 6.2 g/dL (6.4-8.2) Albumin 1.8 g/dL (3.4-5.0) Albumin/Globulin Ratio 0.4 (1.0-1.7) Test 01/14/21 07:30 O2 Saturation 98 % (92-99) Arterial Blood pH 7.43 (7.35-7.45) Arterial Blood pCO2 at Patient Temp 48 mmHg (35-46) Arterial Blood pO2 at Patient Temp 108 mmHg (65-108) Arterial Blood HCO3 31 mmol/L (21-28) Arterial Blood Base Excess 6 mmol/L (-3-3) FiO2 40 Laboratory Tests Test 01/13/21 11:29 01/13/21 18:10 01/13/21 23:57 01/14/21 05:20 Glucose (Fingerstick) 94 mg/dL (70-99) 95 mg/dL (70-99) 99 mg/dL (70-99) White Blood Count 8.2 x10^3/uL (4.0-11.0) Red Blood Count 3.52 x10^6/uL (3.50-5.40) Hemoglobin 8.7 g/dL (12.0-15.5) Hematocrit 27.8 % (36.0-47.0) Mean Corpuscular Volume 79 fL (79-100) Mean Corpuscular Hemoglobin 25 pg (25-35) Mean Corpuscular Hemoglobin Concent 31 g/dL (31-37) Red Cell Distribution Width 16.1 % (11.5-14.5) Platelet Count 230 x10^3/uL (140-400) Neutrophils (%) (Auto) 64 % (31-73) Lymphocytes (%) (Auto) 18 % (24-48) Monocytes (%) (Auto) 15 % (0-9) Eosinophils (%) (Auto) 3 % (0-3) Basophils (%) (Auto) 0 % (0-3) Neutrophils # (Auto) 5.3 x10^3/uL (1.8-7.7) Lymphocytes # (Auto) 1.4 x10^3/uL (1.0-4.8) Monocytes # (Auto) 1.2 x10^3/uL (0.0-1.1) Eosinophils # (Auto) 0.3 x10^3/uL (0.0-0.7) Basophils # (Auto) 0.0 x10^3/uL (0.0-0.2) Sodium Level 144 mmol/L (136-145) Potassium Level 4.0 mmol/L (3.5-5.1) Chloride Level 107 mmol/L (98-107) Carbon Dioxide Level 32 mmol/L (21-32) Anion Gap 5 (6-14) Blood Urea Nitrogen 20 mg/dL (7-20) Creatinine 1.4 mg/dL (0.6-1.0) Estimated GFR (Cockcroft-Gault) 46.1 BUN/Creatinine Ratio 14 (6-20) Glucose Level 88 mg/dL (70-99) Calcium Level 8.7 mg/dL (8.5-10.1) Total Bilirubin 0.2 mg/dL (0.2-1.0) Aspartate Amino Transf (AST/SGOT) 32 U/L (15-37) Alanine Aminotransferase (ALT/SGPT) 13 U/L (14-59) Alkaline Phosphatase 60 U/L (46-116) Total Protein 6.2 g/dL (6.4-8.2) Albumin 1.8 g/dL (3.4-5.0) Albumin/Globulin Ratio 0.4 (1.0-1.7) Test 01/14/21 05:21 01/14/21 07:30 Glucose (Fingerstick) 90 mg/dL (70-99) O2 Saturation 98 % (92-99) Arterial Blood pH 7.43 (7.35-7.45) Arterial Blood pCO2 at Patient Temp 48 mmHg (35-46) Arterial Blood pO2 at Patient Temp 108 mmHg (65-108) Arterial Blood HCO3 31 mmol/L (21-28) Arterial Blood Base Excess 6 mmol/L (-3-3) FiO2 40 Medications Active Scripts Medications Dose Route/Sig Max Daily Dose Days Date Category Dose Instructions Voltaren (Diclofenac Sodium) 100 Gm Gel..gram. 1 Gm TP QID 30 12/10/20 Reported apply to affected area(s) Oxycodone Hcl 5 Mg Capsule 5 Mg PO PRN Q6HRS PRN 12/08/20 Reported Nystatin 15 Gm Powder 1 [place] TP BID 7 12/08/20 Reported apply to affected area(s) Ondansetron Odt (Ondansetron) 4 Mg Tab.rapdis 1 Tab PO PRN Q8HRS PRN 11/05/20 Reported Reglan (Metoclopramide Hcl) 10 Mg Tablet 1 Tab PO QID 30 11/05/20 Reported before food and bedtime Pantoprazole Sodium (Pantoprazole Sodium) 40 Mg Tablet.dr 40 Mg PO BIDAC 30 06/21/20 Rx Losartan Potassium 100 Mg Tablet 100 Mg PO DAILY 05/03/20 Reported Aspirin 325 Mg Tablet 1 Tab PO DAILY 05/03/20 Reported Metformin Hcl 500 Mg Tablet 500 Mg PO BIDWMEALS 05/03/20 Reported Bumetanide 1 Mg Tablet 1 Mg PO BID 04/02/20 Reported Insulin Aspart 100 Unit/1 Ml Vial 60 Unit SQ TIDAC 04/02/20 Reported novolg flex pen Isosorbide Mononitrate Er (Isosorbide Mononitrate) 120 Mg Tab.er.24h 120 Mg PO DAILY 04/02/20 Reported NITROGLYCERIN SubLingual (Nitroglycerin) 0.4 Mg Tab.subl 0.4 Mg SL PRN Q5MIN PRN 04/02/20 Reported Albuterol Sulfate Neb Soln (Albuterol Sulfate) 2.5 Mg/3 Ml Vial.neb 2.5 Mg NEB Q4-6HRS PRN 04/02/20 Reported Levemir Flextouch (Insulin Detemir) 100 Unit/1 Ml Insuln.pen 60 Unit SQ HS 04/02/20 Reported Hydralazine Hcl 25 Mg Tablet 25 Mg PO BID 04/02/20 Reported Fluticasone Propionate Nasal [place] (Fluticasone Propionate) 16 Gm [place].susp 2 [place] NS DAILY 06/18/19 Reported Zolpidem Tartrate 5 Mg Tablet 5 Mg PO PRN QHS PRN 06/18/19 Reported Amlodipine Besylate 10 Mg Tablet 10 Mg PO DAILY 06/18/19 Reported Gabapentin 600 Mg Tablet 600 Mg PO BID 06/18/19 Reported Potassium Chloride (Potassium Chloride) 20 Meq Tablet.er 20 Meq PO BID 06/18/19 Reported Clopidogrel (Clopidogrel Bisulfate) 75 Mg Tablet 75 Mg PO DAILYWBKFT 75 11/10/17 Rx Proair Respiclick (Albuterol Sulfate) 90 Mcg Aer.pow.ba 2 Puff IH PRN Q4-6HRS PRN 09/08/16 Reported Cyclobenzaprine Hcl 10 Mg Tablet 1 Tab PO BID PRN 09/08/16 Reported Requip (Ropinirole Hcl) 1 Mg Tablet 1 Tab PO QHS 09/08/16 Reported Crestor (Rosuvastatin Calcium) 20 Mg Tablet 20 Mg PO HS 10/02/15 Reported LAST DOSE: 10/01/15 BEDTIME NEXT DOSE: 10/02/15 BEDTIME Oxybutynin Chloride 5 Mg Tablet 1 Tab PO DAILY 10/02/15 Reported LAST DOSE: 10/02/15 AM NEXT DOSE: 10/03/15 AM Comments CXR 01/10/21 IMPRESSION: Resolution of left pleural effusion. Unchanged bilateral opacities. CXR 01/07 IMPRESSION: 1. Diffuse interstitial prominence may be seen with interstitial pulmonary edema or atypical infectious/inflammatory process. 2. Support lines and tubes as above. 3. Mild cardiomegaly. Impression . 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 Echo 12/2019 with LVEF 45%, improved on cath on 12/07 Coronary artery disease with recent -- cath 12/07 showed patent long stented proximal to distal LAD. No lesions needing intervention were noted. Echo with LVEF 55 to 60%. Type 2 diabetes. Chronic obstructive pulmonary disease. Morbid obesity. Hypertension. Obstructive sleep apnea. MIRIAM cr trending down Plan . UPDATED 01/14/21 Continue current vent support in AC mode --12/450/40% and PEEP of 5 Follow ID recs-- ABX---Zoysn-- BC NGTD Follow surgery recs-- planned for Trach this week Follow GI recs- planned for PEG this week Follow cardiology recs--no further work at this time Follow Nephrology recs-- DVT/GI PPX-- D/W RN and RT FULL CODE UPDATED 01/13/21 Continue current vent support A/C 40% and PEEP of 5 ABG/CXR reviewed Follow ID recs-- ABX---Zoysn Consult surgery for Trach Consult GI for PEG placement Follow cardiology recs-- Follow Nephrology recs-- monitor renal function Follow neurology recs--no plans for further testing at this time Nutritional Support DVT/GI PPX-- D/W RN and RT FULL CODE UPDATED 01/12/21 Continue current vent support A/C Follow ID recs-- ABX for aspiration PNA, Follow Cultures,Sputum culture positive for staph aureus-- 01/06 BC NGTD Consult surgery for possible PEG and Trach next week Follow cardiology recs-- Follow Nephrology recs Follow neurology recs--no plans for further testing at this time Nutritional Support DVT/GI PPX-- Sub Q heparin-- on hold for bloody secretion from ET tube D/W RN and RT D/W Family, poor prognosis, pt. remains a FULL CODE UPDATED 01/11/21 Continue current vent support A/C 16/450/5/40% ABG/CXR-- reviewed -- reduce Fi02 to 35% Follow ID recs-- ABX for aspiration PNA, Follow Cultures,Sputum culture positive for staph aureus-- 01/06 BC NGTD Follow cardiology recs-- Follow Nephrology recs--worsening renal function today Follow neurology recs--no plans for further testing at this time Nutritional Support DVT/GI PPX-- Sub Q heparin D/W RN and RT D/W Family, poor prognosis, pt. remains a FULL CODE UPDATED 01/10/21 Continue current vent support 40% and PEEP of 5 ABG/CXR-- reviewed -- will give X1 dose of lasix today Follow ID recs-- ABX for aspiration PNA, Follow Cultures,Sputum culture positive for staph aureus-- / BC NGTD Follow cardiology recs-- Follow Nephrology recs Follow neurology recs--S/P EEG, pt. 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 Follow Nephrology recs Follow neurology recs-- anoxic brain injury/not brain /seizures-=- no further workup at this time --poor prognosis Nutritional Support DVT/GI PPX-- Sub Q heparin D/W RN and RT Dr.riffle Marroquin/[facility] Family in regards to goals or care Updated 01/08 Continue current support Follow neurology input, EEG performed today Dr. 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 Follow Nephrology recs -- MIRIAM with improving renal function -- IVF Follow neurology recs-- anoxic brain injury/not brain --poor prognosis Nutritional Support DVT/GI PPX-- Sub Q heparin D/W RN and RT PLAN: 1. cont vent support setting reviewed, abg reviewed, personally decreased rr to 16 not alert enough to do sbt off sedation 2. cont antibiotics. 3. Monitor blood sugars. 4. Neurology consulted for questionable seizures. on anti sz meds 5. elevate hob 6. DVT and GI prophylaxis. 7. follow Cardiology rec, p.r.n. hydralazine for elevated blood pressure. 8. has le edema, le venous doppler no dvt discussed w rn rt RAF CADET MD Jan 14, 2021 10:58
--- NOTE | 2021-01-14 11:07 | PDOC ---
[facility] PROGRESS NOTE Date of Service DOS: DATE: 01/14/21 TIME: 11:00 Chief Complaint Chief Complaint Respiratory failure Status post CODE BLUE Severe anoxic brain injury Pneumonia Hyperkalemia Sepsis Obesity Protein malnutrition Hypertensive urgency Seizures CHF COPD History of Present Illness History of Present Illness 01/14/2021 Patient seen and examined in the ICU She remains mechanically ventilated and is unresponsive despite no sedation AC/12/450/40 percent with 5 of PEEP Has IV Zosyn hanging Has Johnson to bedside drainage Discussed with RN Discussed with case management Chart reviewed She remains critically ill Ms Castro is a 60 year old female w/ PMHx Asthma, CAD s/p stenting x6, CHF, COPD, Diabetes-Type II, High Cholesterol, Hypertension, neuropathy, morbid ob esity, RLS, insomnia who presented to ER after she was brought here by EMS from home after she was found unresponsive in her bed by her family. Patient was last known normal was 9 AM on 01/03/2021. family tried to call her but could not get a hold of her so they show up to her house, found her unresponsive in her bed. Per family, patient had a CPAP machine on but the mask slid off her face, there was lot of mucus and material around her face and on her neck area. Patient was responsive to painful stimuli but was very confused, did not follow command. EMS were called, they found her in respiratory distress, GCS of 7-8, they bagged her and brought her here. Upon arrival to room, patient was unresponsive to verbal, severe respiratory distress, need emergent intubation. During the difficult intubation patient became bradycardic and CODE BLUE was initiated. Patient subsequently went into ventricular fibrillation, underwent shock therapy and was initiated on intravenous amiodarone infusion and admitted to ICU. She has been admitted to [place] [id number] for intractable nausea and vomiting and PMC once has had this as well as intense pruritis for 6 months. Was seen and treated for same in November, underwent cardiac cath and GI consultation at the time, was discharged home. Her family stated that patient was seen here 2 days prior for epigastric abdominal pain. It was recommended that she need to stay in the hospital however patient did not want to stay in the hospital so she went home. AMA. 01/05: No acute events overnight. Patient seen and examined bedside. Patient remains intubated. Without sedation. Vent settings at 18/450/40/5. Patient is not responding to painful stimuli at this time. There is a lot of secretions. Currently not on any vasopressors 01/06: No acute events overnight. Patient withdraws to pain. Still intubated with vent settings at 16/450/40/5. Not on any sedation at this time. 01/07: No overnight events. Afebrile. On vent with no sedation for 48 hours FiO2 40% PEEP of 5. Not requiring vasopressors. Not making meaningful eye contact or meaningful movement. Minimal reflexes. Breathing over the vent. Discussed with son, Lance overall poor prognosis given what is likely anoxic encephalopathy. He wants to discuss with his aunt Liss and sister Camille future goals of care. 01/08: No events. Afebrile. Still with no meaningful activity no sedation on vent FiO2 40% PEEP of 5, ABG 7.45/46/142. No BM. Adequate UOP. No residuals on feeds. EEG interpreted by neurology as abnormal because of a severe diffuse disturbance of cerebral activity, consistent with a very poor prognosis from anoxic encephalopathy. 01/09: Overnight ventilated no significant activity he still off sedation. K3.2. Vent FiO2 40% PEEP of 5. Chest radiograph unchanged from prior. Right hand with new twitching, concerning for seizure activity, d/w neurology. D/w sons goals of care and grim neurologic prognosis. 01/10: Afebrile, K3.1. ABG 7.4 7/40/129 on 40% FiO2. CXR stable. Still with right hand tremor. Long d/w son, Lance, and his significant other. 01/11: No overnight events. Chest radiograph stable, ABG on 40% FiO2 and PEEP 5 was 7.48/46/137. Heart rate slowing down and blood pressure coming up a bit. Glucose stable. No sedating meds for over 96 hours. No meaningful interaction. Babinski reflexes demonstrated to family. 01/12: Afebrile overnight. Creatinine 1.3, Hb 9.2. Having more PVCs on monitor today. On 40% FiO2 PEEP of 5. Blood pressure little elevated requiring additional IV dose of hydralazine. Still with right arm twitching and irregular mouth movement. No meaningful neurologic interaction. Afebrile overnight. Chest radiograph appears relatively unchanged from prior. Still with multiple PVCs. On vent without sedation since 01/04/2021. FiO2 40% PEEP 5 ABG 7.46/49/129. Still with right arm twitching, more severe. Attempted to call Lance, son and DPOA, no answer, voicemail full, but last evening he did come in and request to move forward with trach and PEG referrals, does not want to discuss end-of-life care with me anymore Vitals/I&O Vitals/I&O: Vital Signs Date Time Temp Pulse Resp B/P (MAP) Pulse Ox O2 Delivery O2 Flow Rate FiO2 01/14/21 07:30 99 Ventilator 01/14/21 06:00 66 12 135/53 (80) 01/14/21 04:00 97.8 97.8 I & O 01/13/21 01/13/21 01/14/21 15:00 23:00 07:00 Intake Total 620 ml 477.5 ml 1144 ml Output Total 595 ml 360 ml 425 ml Balance 25 ml 117.5 ml 719 ml Physical Exam Physical Exam: GENERAL: Intubated, opens eyes transiently, does not follow any commands HEENT: Normocephalic, atraumatic. Tongue protruded, ETT /OGT + NECK: Supple though fullness due to body habitus. LUNGS: Decreased breath sounds. No wheezing. HEART: S1, S2. Distant heart sounds. ABDOMEN: Obese. Bowel sounds present. EXTREMITIES: Minimal edema. No cyanosis. NEUROLOGIC: Intubated,right upper extremity twitching Left IJ clean General: Other Heart: Regular rate Lungs: Crackles Abdomen: Soft Extremities: Other (Trace edema) Labs Labs: Laboratory Tests Test 01/13/21 11:29 01/13/21 18:10 01/13/21 23:57 01/14/21 05:20 Glucose (Fingerstick) 94 mg/dL (70-99) 95 mg/dL (70-99) 99 mg/dL (70-99) White Blood Count 8.2 x10^3/uL (4.0-11.0) Red Blood Count 3.52 x10^6/uL (3.50-5.40) Hemoglobin 8.7 g/dL (12.0-15.5) Hematocrit 27.8 % (36.0-47.0) Mean Corpuscular Volume 79 fL (79-100) Mean Corpuscular Hemoglobin 25 pg (25-35) Mean Corpuscular Hemoglobin Concent 31 g/dL (31-37) Red Cell Distribution Width 16.1 % (11.5-14.5) Platelet Count 230 x10^3/uL (140-400) Neutrophils (%) (Auto) 64 % (31-73) Lymphocytes (%) (Auto) 18 % (24-48) Monocytes (%) (Auto) 15 % (0-9) Eosinophils (%) (Auto) 3 % (0-3) Basophils (%) (Auto) 0 % (0-3) Neutrophils # (Auto) 5.3 x10^3/uL (1.8-7.7) Lymphocytes # (Auto) 1.4 x10^3/uL (1.0-4.8) Monocytes # (Auto) 1.2 x10^3/uL (0.0-1.1) Eosinophils # (Auto) 0.3 x10^3/uL (0.0-0.7) Basophils # (Auto) 0.0 x10^3/uL (0.0-0.2) Sodium Level 144 mmol/L (136-145) Potassium Level 4.0 mmol/L (3.5-5.1) Chloride Level 107 mmol/L (98-107) Carbon Dioxide Level 32 mmol/L (21-32) Anion Gap 5 (6-14) Blood Urea Nitrogen 20 mg/dL (7-20) Creatinine 1.4 mg/dL (0.6-1.0) Estimated GFR (Cockcroft-Gault) 46.1 BUN/Creatinine Ratio 14 (6-20) Glucose Level 88 mg/dL (70-99) Calcium Level 8.7 mg/dL (8.5-10.1) Total Bilirubin 0.2 mg/dL (0.2-1.0) Aspartate Amino Transf (AST/SGOT) 32 U/L (15-37) Alanine Aminotransferase (ALT/SGPT) 13 U/L (14-59) Alkaline Phosphatase 60 U/L (46-116) Total Protein 6.2 g/dL (6.4-8.2) Albumin 1.8 g/dL (3.4-5.0) Albumin/Globulin Ratio 0.4 (1.0-1.7) Test 01/14/21 05:21 01/14/21 07:30 Glucose (Fingerstick) 90 mg/dL (70-99) O2 Saturation 98 % (92-99) Arterial Blood pH 7.43 (7.35-7.45) Arterial Blood pCO2 at Patient Temp 48 mmHg (35-46) Arterial Blood pO2 at Patient Temp 108 mmHg (65-108) Arterial Blood HCO3 31 mmol/L (21-28) Arterial Blood Base Excess 6 mmol/L (-3-3) FiO2 40 Assessment and Plan Assessmemt and Plan Problems Medical Problems: (1) Acute renal failure Status: Acute (2) Altered mental status Status: Acute (3) Aspiration pneumonia Status: Acute (4) Hyperkalemia Status: Acute (5) Respiratory failure Status: Acute (6) Sepsis Status: Acute Respiratory failure Status post CODE BLUE Severe anoxic brain injury Pneumonia Hyperkalemia Sepsis Obesity Protein malnutrition Hypertensive urgency Seizures CHF COPD Plan ICU monitoring Vent weaning if possible but unlikely Continue the IV Zosyn Continue Johnson to bedside drainage Family meeting is scheduled for today to help clarify long-term goals of care Her prognosis is extremely poor Suspect [facility] transplant might be able to assist? For now trend labs Home meds DVT prophylaxis Full code CC time 31-minute Comment Review of Relevant I have reviewed the following items shady (where applicable) has been applied. Justifications for Admission Other Justification cardiac arrest KATHE MARIE III DO Jan 14, 2021 11:07
[2021-01-14] MEDS: VALPROIC ACID (AS SODIUM SALT) 750 MG in IV DEXTROSE 5% 50 ML IV SCH ×2 (12:26→21:29)
[2021-01-14] MEDS: METOPROLOL TART IMMED RELEASE 25 MG TABLET. PO SCH ×2 (12:29→21:30)
[2021-01-14] MEDS: ISOSORBIDE MONONITRATE 20 MG TABLET PO SCH ×2 (12:40→13:09)
[2021-01-14] MEDS: CLOPIDOGREL BISULFATE 75 MG TABLET PO SCH (12:48)
[2021-01-14] MEDS: LOSARTAN POTASSIUM 50 MG TABLET. PO SCH (12:49)
--- NOTE | 2021-01-14 14:08 | NUR ---
1400 Increased frequency in seizure activity after repositioning to either side lying position. Communication dioni HODGES ie talk w 'sons'... wants 'everything done, form trach to peg' . Information passed on to DR Jared potts trach placement decision.Patient is not responsive to current therapy. Questionable motor,sensory and cerebellar function. Addendum: 01/14/21 at 1436 by Ashley Murrieta RN Amended: Links added.
--- NOTE | 2021-01-14 14:55 | PDOC2 ---
CONSULT Date of Consult Date of Consult DATE: 01/14/21 TIME: 14:51 Reason for Consult Reason for Consult: tracheostomy Referring Physician Referring Physician: Dr. Tolentino Identification/Chief Complaint Chief Complaint none Source Source: Chart review History of Present Illness Reason for Visit: 60 yo F with anoxic brain injury. Unable to be weaned. Pt has been orally intubated for 5 weeks. Consultation for tracheostomy. Pt in bed, orally intubated. No family currently. Past Medical History Cardiovascular: CAD, CHF, HTN, Hyperlipidemia Pulmonary: COPD, Other CENTRAL NERVOUS SYSTEM: Periperal neuropathy GI: Irritable bowel disease Heme/Onc: Iron deficiency Anemia Hepatobiliary: No pertinent hx Psych: Anxiety, Depression Rheumatologic: No pertinent hx Infectious disease: No pertinent hx Renal/: Chronic renal insuff Endocrine: Diabetes Past Surgical History Past Surgical History: Other Family History Family History: Diabetes, Hypertension Social History No ALCOHOL: rare Drugs: None Lives: with Family Current Problem List Problem List Problems Medical Problems: (1) Acute renal failure Status: Acute (2) Altered mental status Status: Acute (3) Aspiration pneumonia Status: Acute (4) Hyperkalemia Status: Acute (5) Respiratory failure Status: Acute (6) Sepsis Status: Acute Current Medications Current Medications Current Medications Amiodarone HCl 450 mg/Dextrose 259 ml @ 33 mls/hr 1X ONCE IV Last administered on 01/04/21at 11:40; Start 01/04/21 at 11:15; Stop 01/04/21 at 19:05; Status DC Midazolam HCl 100 ml @ 1 mls/hr 1X ONCE IV Last administered on 01/04/21at 11:39; Start 01/04/21 at 11:30; Stop 01/05/21 at 09:51; Status DC Sodium Chloride 1,000 ml @ 1,000 mls/hr 1X ONCE IV Last administered on 01/04/21at 12:13; Start 01/04/21 at 11:45; Stop 01/04/21 at 12:44; Status DC Sodium Bicarbonate (Sodium Bicarb Adult 8.4% Syr) 50 meq 1X ONCE IV Last administered on 01/04/21at 12:55; Start 01/04/21 at 12:00; Stop 01/04/21 at 12:01; Status DC Dextrose (Dextrose 50%-Water Syringe) 25 gm 1X ONCE IV Last administered on 01/04/21at 12:53; Start 01/04/21 at 12:00; Stop 01/04/21 at 12:01; Status DC Insulin Human Regular (HumuLIN R VIAL) 10 unit 1X ONCE IV Last administered on 01/04/21at 12:52; Start 01/04/21 at 12:00; Stop 01/04/21 at 12:01; Status DC Piperacillin Sod/ Tazobactam Sod 3.375 gm/Sodium Chloride 50 ml @ 100 mls/hr 1X ONCE IV Last administered on 01/04/21at 12:12; Start 01/04/21 at 12:00; Stop 01/04/21 at 12:29; Status DC Succinylcholine Chloride (Anectine) 100 mg 1X ONCE IV Last administered on 01/04/21at 11:03; Start 01/04/21 at 12:45; Stop 01/04/21 at 12:46; Status DC Etomidate (Amidate) 20 mg 1X ONCE IV Last administered on 01/04/21at 11:02; Start 01/04/21 at 12:45; Stop 01/04/21 at 12:46; Status DC Rocuronium [place] (Zemuron) 100 mg 1X ONCE IV ; Start 01/04/21 at 12:45; Stop 01/04/21 at 12:46; Status Cancel Midazolam HCl (Versed) 5 mg 1X ONCE IV Last administered on 01/04/21at 11:30; Start 01/04/21 at 12:45; Stop 01/04/21 at 12:46; Status DC Rocuronium [place] (Zemuron) 100 mg 1X ONCE IV Last administered on 01/04/21at 11:33; Start 01/04/21 at 12:45; Stop 01/04/21 at 12:46; Status DC Ondansetron HCl (Zofran) 4 mg PRN Q8HRS PRN IV NAUSEA/VOMITING; Start 01/04/21 at 13:00; Stop 01/05/21 at 09:48; Status DC Sodium Chloride 1,000 ml @ 100 mls/hr Q10H IV Last administered on 01/05/21at 09:41; Start 01/04/21 at 13:00; Stop 01/05/21 at 12:59; Status DC Ondansetron HCl (Zofran) 4 mg PRN Q6HRS PRN IVP NAUSEA/VOMITING; Start 01/04/21 at 14:00 Famotidine (Pepcid Vial) 20 mg QHS IVP Last administered on 01/13/21at 20:47; Start 01/04/21 at 21:00 Heparin Sodium (Porcine) (Heparin Sodium) 5,000 unit Q8HRS SQ Last administered on 01/14/21at 05:27; Start 01/04/21 at 14:00 Sodium Chloride (Normal Saline Flush) 3 ml QSHIFT PRN IV AFTER MEDS AND BLOOD DRAWS; Start 01/04/21 at 14:00 Bisacodyl (Dulcolax Supp) 10 mg PRN DAILY PRN HI CONSTIPATION; Start 01/04/21 at 14:00 Piperacillin Sod/ Tazobactam Sod (Zosyn Per Pharmacy) 1 each PRN DAILY PRN MC SEE COMMENTS; Start 01/04/21 at 14:00; Stop 01/04/21 at 17:48; Status DC Piperacillin Sod/ Tazobactam Sod 2.25 gm/Sodium Chloride 50 ml @ 100 mls/hr Q6HRS IV ; Start 01/04/21 at 18:00; Stop 01/04/21 at 17:49; Status DC Dextrose (Dextrose 50%-Water Syringe) 25 gm 1X ONCE IV Last administered on 01/04/21at 16:21; Start 01/04/21 at 16:15; Stop 01/04/21 at 16:16; Status DC Meropenem 500 mg/ Sodium Chloride 50 ml @ 100 mls/hr Q8HRS IV ; Start 01/04/21 at 18:00; Status Cancel Piperacillin Sod/ Tazobactam Sod 2.25 gm/Sodium Chloride 50 ml @ 100 mls/hr Q8HRS IV Last administered on 01/08/21at 06:01; Start 01/04/21 at 22:00; Stop 01/08/21 at 07:50; Status DC Linezolid/Dextrose 300 ml @ 300 mls/hr Q12HR IV Last administered on 01/07/21at 21:23; Start 01/04/21 at 21:00; Stop 01/08/21 at 10:41; Status DC Valproic Acid 500 mg/Dextrose 55 ml @ 55 mls/hr Q12HR IV Last administered on 01/05/21at 09:40; Start 01/05/21 at 09:00; Stop 01/05/21 at 17:28; Status DC Valproic Acid 1000 mg/Dextrose 60 ml @ 60 mls/hr 1X ONCE IV Last administered on 01/04/21at 19:30; Start 01/04/21 at 19:30; Stop 01/04/21 at 20:29; Status DC Lorazepam (Ativan Inj) 2 mg PRN Q2HRS PRN IVP ANXIETY / AGITATION Last administered on 01/05/21at 23:30; Start 01/04/21 at 19:30; Stop 01/08/21 at 08:16; Status DC Hydralazine HCl (Apresoline Inj) 10 mg PRN Q6HRS PRN IVP ELEVATED BP, SEE COMMENTS Last administered on 01/10/21at 13:25; Start 01/04/21 at 19:45 Amiodarone HCl 450 mg/Dextrose 259 ml @ 33 mls/hr CONT PRN IV SEE I/O RECORD Last administered on 01/05/21at 11:50; Start 01/04/21 at 20:15; Stop 01/05/21 at 11:50; Status DC Midazolam HCl 100 ml @ 1 mls/hr CONT PRN IV SEE I/O RECORD Last administered on 01/05/21at 02:00; Start 01/05/21 at 02:00; Stop 01/08/21 at 08:16; Status DC Daptomycin 600 mg/ Sodium Chloride 50 ml @ 100 mls/hr Q48H IV Last administered on 01/07/21at 15:40; Start 01/05/21 at 16:00; Stop 01/08/21 at 07:52; Status DC Scopolamine (Transderm-Scop) 1 patch Q3DAYS TD Last administered on 01/08/21at 08:08; Start 01/05/21 at 17:00; Stop 01/08/21 at 08:16; Status DC Valproic Acid 750 mg/Dextrose 57.5 ml @ 57.5 mls/hr Q12HR IV Last administered on 01/14/21at 12:26; Start 01/05/21 at 21:00 Insulin Human Lispro (HumaLOG) 0-5 UNITS TIDWMEALS SQ Last administered on 01/05/21at 18:27; Start 01/05/21 at 18:30; Stop 01/06/21 at 08:42; Status DC Dextrose (Dextrose 50%-Water Syringe) 12.5 gm PRN Q15MIN PRN IV SEE COMMENTS; Start 01/05/21 at 18:15 Amiodarone HCl 450 mg/Dextrose 259 ml @ 0 mls/hr 1X ONCE IV Last administered on 01/06/21at 02:00; Start 01/06/21 at 02:00; Stop 01/06/21 at 02:01; Status DC Insulin Human Lispro (HumaLOG) 0-5 UNITS Q6HRS SQ ; Start 01/06/21 at 12:00 Amiodarone HCl 450 mg/Dextrose 259 ml @ 0 mls/hr 1X ONCE IV Last administered on 01/06/21at 17:05; Start 01/06/21 at 17:00; Stop 01/06/21 at 17:01; Status DC Amiodarone HCl (Cordarone) 400 mg DAILY PO ; Start 01/07/21 at 14:00; Stop 01/07/21 at 13:15; Status DC Multi-Ingred Cream/Lotion/Oil/ Oint (Artificial Tears Eye Ointment) 1 chio PRN Q1HR PRN OU DRY EYE Last administered on 01/07/21at 14:14; Start 01/07/21 at 13:00 Aspirin (Blessing Aspirin) 325 mg DAILY PO Last administered on 01/08/21at 08:12; Start 01/08/21 at 09:00; Stop 01/09/21 at 09:16; Status DC Clopidogrel Bisulfate (Plavix) 75 mg DAILYWBKFT PO Last administered on 01/14/21at 12:48; Start 01/08/21 at 08:00 Hydralazine HCl (Apresoline) 25 mg BID PO Last administered on 01/13/21at 20:52; Start 01/07/21 at 21:00 Metoprolol Succinate (Toprol Xl) 25 mg DAILY PO ; Start 01/08/21 at 09:00; Stop 01/08/21 at 07:44; Status DC Isosorbide Mononitrate (Imdur) 120 mg DAILY PO ; Start 01/08/21 at 09:00; Stop 01/08/21 at 08:16; Status DC Losartan Potassium (Cozaar) 100 mg DAILY PO Last administered on 01/14/21 12:4 9; Start 01/08/21 at 09:00 Atorvastatin Calcium (Lipitor) 80 mg QHS PO Last administered on 01/13/21at 20:51; Start 01/07/21 at 21:00 Epinephrine HCl (EPINEPHrine SYRINGE) 2 mg STK-MED ONCE .ROUTE ; Start 01/04/21 at 11:00; Stop 01/07/21 at 17:12; Status DC Amiodarone HCl (Cordarone) 300 mg STK-MED ONCE .ROUTE ; Start 01/04/21 at 11:00; Stop 01/07/21 at 17:12; Status DC Metoprolol Tartrate (Lopressor) 12.5 mg BID PO Last administered on 01/14/21 12:29; Start 01/08/21 at 09:00 Piperacillin Sod/ Tazobactam Sod 3.375 gm/Sodium Chloride 50 ml @ 100 mls/hr Q6HRS IV Last administered on 01/14/21 12:41; Start 01/08/21 at 12:00 Daptomycin 600 mg/ Sodium Chloride 50 ml @ 100 mls/hr Q24H IV Last administered on 01/11/21 15:56; Start 01/08/21 at 16:00; Stop 01/12/21 at 09:34; Status DC Isosorbide Mononitrate (Ismo) 20 mg BID92 PO Last administered on 01/14/21 13:09; Start 01/08/21 at 09:00 Aspirin (Aspirin Chewable) 81 mg DAILYWBKFT PO Last administered on 01/13/21at 09:12; Start 01/08/21 at 08:30 Glycopyrrolate (Robinul) 1 mg PRN DAILY PRN IV Secretions Last administered on 01/13/21 09:13; Start 01/08/21 at 08:45 Potassium Chloride/Water 100 ml @ 100 mls/hr Q1H IV Last administered on 01/08/21 13:37; Start 01/08/21 at 12:00; Stop 01/08/21 at 13:59; Status DC Potassium Bicarbonate (Potassium Effervescent Tablet) 40 meq 1X ONCE PEG Last administered on 01/09/21 11:02; Start 01/09/21 at 09:30; Stop 01/09/21 at 09:31; Status DC Potassium Bicarbonate (Potassium Effervescent Tablet) 40 meq 1X ONCE PO Last administered on 01/10/21at 07:19; Start 01/10/21 at 08:00; Stop 01/10/21 at 08:01; Status DC Furosemide (Lasix) 40 mg 1X ONCE IVP Last administered on 01/10/21at 17:48; Start 01/10/21 at 17:45; Stop 01/10/21 at 17:46; Status DC Potassium Bicarbonate (Potassium Effervescent Tablet) 40 meq 1X ONCE PEG Last administered on 01/10/21at 19:15; Start 01/10/21 at 19:00; Stop 01/10/21 at 19:01; Status DC Active Scripts Active Promethazine Hcl 12.5 Mg Tablet 12.5 Mg PO PRN Q6HRS PRN 30 Days Metoprolol Succinate ( Xl ) (Metoprolol Succinate) 25 Mg Tab.er.24h 25 Mg PO DAILY 30 Days Pantoprazole Sodium (Pantoprazole Sodium) 40 Mg Tablet.dr 40 Mg PO BIDAC 30 Days Clopidogrel (Clopidogrel Bisulfate) 75 Mg Tablet 75 Mg PO DAILYWBKFT 75 Days Reported Voltaren (Diclofenac Sodium) 100 Gm Gel..gram. 1 Gm TP QID 30 Days apply to affected area(s) Nystatin 15 Gm Powder 1 [place] TP BID 7 Days apply to affected area(s) Ondansetron Odt (Ondansetron) 4 Mg Tab.rapdis 1 Tab PO PRN Q8HRS PRN Reglan (Metoclopramide Hcl) 10 Mg Tablet 1 Tab PO QID 30 Days before food and bedtime Losartan Potassium 100 Mg Tablet 100 Mg PO DAILY Aspirin 325 Mg Tablet 1 Tab PO DAILY Metformin Hcl 500 Mg Tablet 500 Mg PO BIDWMEALS Bumetanide 1 Mg Tablet 1 Mg PO BID Insulin Aspart 100 Unit/1 Ml Vial 60 Unit SQ TIDAC novolg flex pen Isosorbide Mononitrate Er (Isosorbide Mononitrate) 120 Mg Tab.er.24h 120 Mg PO DAILY NITROGLYCERIN SubLingual (Nitroglycerin) 0.4 Mg Tab.subl 0.4 Mg SL PRN Q5MIN PRN Albuterol Sulfate Neb Soln (Albuterol Sulfate) 2.5 Mg/3 Ml Vial.neb 2.5 Mg NEB Q4-6HRS PRN Levemir Flextouch (Insulin Detemir) 100 Unit/1 Ml Insuln.pen 60 Unit SQ HS Hydralazine Hcl 25 Mg Tablet 25 Mg PO BID Fluticasone Propionate Nasal [place] (Fluticasone Propionate) 16 Gm [place].susp 2 [place] NS DAILY Zolpidem Tartrate 5 Mg Tablet 5 Mg PO PRN QHS PRN Amlodipine Besylate 10 Mg Tablet 10 Mg PO DAILY Gabapentin 600 Mg Tablet 600 Mg PO BID Potassium Chloride (Potassium Chloride) 20 Meq Tablet.er 20 Meq PO BID Proair Respiclick (Albuterol Sulfate) 90 Mcg Aer.pow.ba 2 Puff IH PRN Q4-6HRS PRN Cyclobenzaprine Hcl 10 Mg Tablet 1 Tab PO BID PRN Requip (Ropinirole Hcl) 1 Mg Tablet 1 Tab PO QHS Crestor (Rosuvastatin Calcium) 20 Mg Tablet 20 Mg PO HS LAST DOSE: 10/01/15 BEDTIME NEXT DOSE: 10/02/15 BEDTIME Oxybutynin Chloride 5 Mg Tablet 1 Tab PO DAILY LAST DOSE: 10/02/15 AM NEXT DOSE: 10/03/15 AM Allergies Allergies: Coded Allergies: No Known Drug Allergies (Unverified , 08/03/20) ROS Review of System unobtainable Physical Exam General: No acute distress HEENT: Other (orally intubated) Neuro: Other (RUE repetitive motion) Vitals VITALS Vital Signs Date Time Temp Pulse Resp B/P (MAP) Pulse Ox O2 Delivery O2 Flow Rate FiO2 01/14/21 13:15 100 Ventilator 01/14/21 13:09 77 149/81 01/14/21 06:00 12 01/14/21 04:00 97.8 97.8 Labs Labs Laboratory Tests Test 01/12/21 17:33 01/12/21 23:49 01/13/21 06:00 01/13/21 06:09 Glucose (Fingerstick) 79 mg/dL (70-99) 126 mg/dL (70-99) 97 mg/dL (70-99) Sodium Level 145 mmol/L (136-145) Potassium Level 3.7 mmol/L (3.5-5.1) Chloride Level 108 mmol/L (98-107) Carbon Dioxide Level 31 mmol/L (21-32) Anion Gap 6 (6-14) Blood Urea Nitrogen 16 mg/dL (7-20) Creatinine 1.3 mg/dL (0.6-1.0) Estimated GFR (Cockcroft-Gault) 50.2 Glucose Level 96 mg/dL (70-99) Calcium Level 8.6 mg/dL (8.5-10.1) Magnesium Level 2.3 mg/dL (1.8-2.4) Test 01/13/21 07:50 01/13/21 08:00 01/13/21 11:29 01/13/21 18:10 White Blood Count 7.5 x10^3/uL (4.0-11.0) Red Blood Count 3.52 x10^6/uL (3.50-5.40) Hemoglobin 8.6 g/dL (12.0-15.5) Hematocrit 27.5 % (36.0-47.0) Mean Corpuscular Volume 78 fL (79-100) Mean Corpuscular Hemoglobin 24 pg (25-35) Mean Corpuscular Hemoglobin Concent 31 g/dL (31-37) Red Cell Distribution Width 16.0 % (11.5-14.5) Platelet Count 200 x10^3/uL (140-400) O2 Saturation 98 % (92-99) Arterial Blood pH 7.46 (7.35-7.45) Arterial Blood pCO2 at Patient Temp 49 mmHg (35-46) Arterial Blood pO2 at Patient Temp 129 mmHg (65-108) Arterial Blood HCO3 34 mmol/L (21-28) Arterial Blood Base Excess 9 mmol/L (-3-3) FiO2 40/vent Glucose (Fingerstick) 94 mg/dL (70-99) 95 mg/dL (70-99) Test 01/13/21 23:57 01/14/21 05:20 01/14/21 05:21 01/14/21 07:30 Glucose (Fingerstick) 99 mg/dL (70-99) 90 mg/dL (70-99) White Blood Count 8.2 x10^3/uL (4.0-11.0) Red Blood Count 3.52 x10^6/uL (3.50-5.40) Hemoglobin 8.7 g/dL (12.0-15.5) Hematocrit 27.8 % (36.0-47.0) Mean Corpuscular Volume 79 fL (79-100) Mean Corpuscular Hemoglobin 25 pg (25-35) Mean Corpuscular Hemoglobin Concent 31 g/dL (31-37) Red Cell Distribution Width 16.1 % (11.5-14.5) Platelet Count 230 x10^3/uL (140-400) Neutrophils (%) (Auto) 64 % (31-73) Lymphocytes (%) (Auto) 18 % (24-48) Monocytes (%) (Auto) 15 % (0-9) Eosinophils (%) (Auto) 3 % (0-3) Basophils (%) (Auto) 0 % (0-3) Neutrophils # (Auto) 5.3 x10^3/uL (1.8-7.7) Lymphocytes # (Auto) 1.4 x10^3/uL (1.0-4.8) Monocytes # (Auto) 1.2 x10^3/uL (0.0-1.1) Eosinophils # (Auto) 0.3 x10^3/uL (0.0-0.7) Basophils # (Auto) 0.0 x10^3/uL (0.0-0.2) Sodium Level 144 mmol/L (136-145) Potassium Level 4.0 mmol/L (3.5-5.1) Chloride Level 107 mmol/L (98-107) Carbon Dioxide Level 32 mmol/L (21-32) Anion Gap 5 (6-14) Blood Urea Nitrogen 20 mg/dL (7-20) Creatinine 1.4 mg/dL (0.6-1.0) Estimated GFR (Cockcroft-Gault) 46.1 BUN/Creatinine Ratio 14 (6-20) Glucose Level 88 mg/dL (70-99) Calcium Level 8.7 mg/dL (8.5-10.1) Total Bilirubin 0.2 mg/dL (0.2-1.0) Aspartate Amino Transf (AST/SGOT) 32 U/L (15-37) Alanine Aminotransferase (ALT/SGPT) 13 U/L (14-59) Alkaline Phosphatase 60 U/L (46-116) Total Protein 6.2 g/dL (6.4-8.2) Albumin 1.8 g/dL (3.4-5.0) Albumin/Globulin Ratio 0.4 (1.0-1.7) O2 Saturation 98 % (92-99) Arterial Blood pH 7.43 (7.35-7.45) Arterial Blood pCO2 at Patient Temp 48 mmHg (35-46) Arterial Blood pO2 at Patient Temp 108 mmHg (65-108) Arterial Blood HCO3 31 mmol/L (21-28) Arterial Blood Base Excess 6 mmol/L (-3-3) FiO2 40 Test 01/14/21 12:52 Glucose (Fingerstick) 85 mg/dL (70-99) Laboratory Tests Test 01/13/21 18:10 01/13/21 23:57 01/14/21 05:20 01/14/21 05:21 Glucose (Fingerstick) 95 mg/dL (70-99) 99 mg/dL (70-99) 90 mg/dL (70-99) White Blood Count 8.2 x10^3/uL (4.0-11.0) Red Blood Count 3.52 x10^6/uL (3.50-5.40) Hemoglobin 8.7 g/dL (12.0-15.5) Hematocrit 27.8 % (36.0-47.0) Mean Corpuscular Volume 79 fL (79-100) Mean Corpuscular Hemoglobin 25 pg (25-35) Mean Corpuscular Hemoglobin Concent 31 g/dL (31-37) Red Cell Distribution Width 16.1 % (11.5-14.5) Platelet Count 230 x10^3/uL (140-400) Neutrophils (%) (Auto) 64 % (31-73) Lymphocytes (%) (Auto) 18 % (24-48) Monocytes (%) (Auto) 15 % (0-9) Eosinophils (%) (Auto) 3 % (0-3) Basophils (%) (Auto) 0 % (0-3) Neutrophils # (Auto) 5.3 x10^3/uL (1.8-7.7) Lymphocytes # (Auto) 1.4 x10^3/uL (1.0-4.8) Monocytes # (Auto) 1.2 x10^3/uL (0.0-1.1) Eosinophils # (Auto) 0.3 x10^3/uL (0.0-0.7) Basophils # (Auto) 0.0 x10^3/uL (0.0-0.2) Sodium Level 144 mmol/L (136-145) Potassium Level 4.0 mmol/L (3.5-5.1) Chloride Level 107 mmol/L (98-107) Carbon Dioxide Level 32 mmol/L (21-32) Anion Gap 5 (6-14) Blood Urea Nitrogen 20 mg/dL (7-20) Creatinine 1.4 mg/dL (0.6-1.0) Estimated GFR (Cockcroft-Gault) 46.1 BUN/Creatinine Ratio 14 (6-20) Glucose Level 88 mg/dL (70-99) Calcium Level 8.7 mg/dL (8.5-10.1) Total Bilirubin 0.2 mg/dL (0.2-1.0) Aspartate Amino Transf (AST/SGOT) 32 U/L (15-37) Alanine Aminotransferase (ALT/SGPT) 13 U/L (14-59) Alkaline Phosphatase 60 U/L (46-116) Total Protein 6.2 g/dL (6.4-8.2) Albumin 1.8 g/dL (3.4-5.0) Albumin/Globulin Ratio 0.4 (1.0-1.7) Test 01/14/21 07:30 01/14/21 12:52 O2 Saturation 98 % (92-99) Arterial Blood pH 7.43 (7.35-7.45) Arterial Blood pCO2 at Patient Temp 48 mmHg (35-46) Arterial Blood pO2 at Patient Temp 108 mmHg (65-108) Arterial Blood HCO3 31 mmol/L (21-28) Arterial Blood Base Excess 6 mmol/L (-3-3) FiO2 40 Glucose (Fingerstick) 85 mg/dL (70-99) Assessment/Plan Assessment/Plan Respiratory failure pt represents a difficult tracheostomy pt, given possible seizure like activity and morbid obesity. Would encourage comfort care measures. In addition, pt has been orally intubated over a month. Will tentatively consider tracheostomy 01/22. Thanks for consult! ERUM GREEN MD Jan 14, 2021 14:55
--- NOTE | 2021-01-14 15:59 | NUR ---
SS following up with discharge planning. SS reviewed pt chart and discussed with pt RN. Pt is currently on the vent at 40%. Pt on IV Zosyn. Not responsive. Full Code. SS received phone contact from pt's son, Lance, and pt's son reported that he wants everything done and wants pt to remain Full Code at this time. Pt's son stated that he wants to proceed with trach and peg and would like nurses to call him with consents for procedures. Pt's RN notified. Dr. Coleman consulted and tentative trach scheduled for 01/22/2021. SS will continue to follow for discharge planning.
[2021-01-14] MEDS: ASPIRIN CHEWABLE 81 MG TABLET. PO SCH (17:26)
[2021-01-14] MEDS: FAMOTIDINE 20 MG/2 ML VIAL IVP SCH (21:29)
[2021-01-14] MEDS: ATORVASTATIN CALCIUM 40 MG TABLET. PO SCH (21:30)
[2021-01-15] VITALS (25 sets, daily range): BP systolic 113–214; BP diastolic 49–99
[2021-01-15] MEDS: PIPERACILLIN/TAZOBACTAM 3.375 GM in IV NORMAL SALINE 50ML 50 ML IV SCH ×2 (00:28→05:29)
[2021-01-15] MEDS: INSULIN LISPRO 300 UNITS/3 ML VIAL. SQ SCH ×6 (05:29→23:59)
[2021-01-15] MEDS: HEPARIN for SUB-Q USE 5,000 UNIT/ML VIAL. SQ SCH ×3 (05:30→21:29)
--- NOTE | 2021-01-15 07:56 | PDOC ---
Infectious Disease Note Subjective Subjective Intubated , does not respond to any commands Now has constant twitching of right upper extremity Patient condition remains unchanged per discussion with RN Vital Sign Vital Signs Vital Signs Date Time Temp Pulse Resp B/P (MAP) Pulse Ox O2 Delivery O2 Flow Rate FiO2 01/15/21 06:00 69 14 160/88 (112) 100 Ventilator 01/15/21 04:00 98.0 98.0 Physical Exam PHYSICAL EXAM GENERAL: Intubated, opens eyes transiently, does not follow any commands HEENT: Normocephalic, atraumatic. Tongue protruded, ETT /OGT + NECK: Supple though fullness due to body habitus. LUNGS: Decreased breath sounds. No wheezing. HEART: S1, S2. Distant heart sounds. ABDOMEN: Obese. Bowel sounds present. EXTREMITIES: Minimal edema. No cyanosis. NEUROLOGIC: Intubated,right upper extremity twitching Left IJ clean Labs Lab Laboratory Tests Test 01/14/21 12:52 01/14/21 17:58 01/15/21 00:30 01/15/21 05:27 Glucose (Fingerstick) 85 mg/dL (70-99) 95 mg/dL (70-99) 107 mg/dL (70-99) 110 mg/dL (70-99) Micro Microbiology 01/06/21 Blood Culture - Final, Complete NO GROWTH AFTER 5 DAYS 01/05/21 Gram Stain Evaluation - Final, Complete 01/05/21 Respiratory Culture - Final, Complete 01/05/21 Antimicrobic Susceptibility - Final, Complete 01/04/21 Urine Culture - Final, Complete Objective Assessment 1. Fever. Resolved 2. Leukocytosis and lactic acidosis. Proving 3. Acute hypoxic respiratory failure. Status post intubation 4. Suspected aspiration pneumonia. Sputum culture positive for mssa 5. Status post cardiopulmonary arrest. 6. Questionable seizures. Encephalopathy 7. Diabetes mellitus 2. 8. Morbid obesity. 9. Obstructive sleep apnea. 10. Coronary artery disease. 11. Chronic kidney disease 12. Hypernatremia and hyperkalemia. 13 Gram-positive bacteremia bacteremia 2 out of 4 bottles present on admission staph epidermidis Plan Plan of Care 1. dc Zosyn , 2. Follow up labs and cultures. Follow-up repeat blood cultures 01/06 negative so far 3. Continue supportive care. 4. Critically ill. 5. Prognosis poor. Discussed with nursing staff JENNY CRUZ MD Jan 15, 2021 07:56
[2021-01-15 08:00] LABS: BASE EXCESS ABG 6 mmol/L (-3-3); HCO3 ABG 31 mmol/L (21-28); PCO2 ABG 46 mmHg (35-46); PO2 ABG 131 mmHg (65-108); SAT O2 ABG 99 % (92-99)
[2021-01-15 08:02] LABS: FIO2 ABG 40
[2021-01-15] MEDS: VALPROIC ACID (AS SODIUM SALT) 750 MG in IV DEXTROSE 5% 50 ML IV SCH ×2 (08:21→20:54)
[2021-01-15] MEDS: LOSARTAN POTASSIUM 50 MG TABLET. PO SCH (08:21)
[2021-01-15] MEDS: ISOSORBIDE MONONITRATE 20 MG TABLET PO SCH ×2 (08:22→14:07)
[2021-01-15] MEDS: METOPROLOL TART IMMED RELEASE 25 MG TABLET. PO SCH ×2 (08:22→20:55)
[2021-01-15] MEDS: CLOPIDOGREL BISULFATE 75 MG TABLET PO SCH (08:22)
[2021-01-15] MEDS: ASPIRIN CHEWABLE 81 MG TABLET. PO SCH (08:22)
[2021-01-15] MEDS: hydrALAZINE 25 MG TABLET PO SCH ×2 (08:22→20:54)
--- NOTE | 2021-01-15 09:36 | PDOC ---
PULMONARY PROGRESS NOTES DATE: 01/15/21 TIME: 09:36 Subjective Pt. remains on vent support AC mode remains on unresponsive ongoing seizure activity no new events Vitals Vital Signs Date Time Temp Pulse Resp B/P (MAP) Pulse Ox O2 Delivery O2 Flow Rate FiO2 01/15/21 09:22 100 Ventilator 01/15/21 09:00 61 14 126/62 (83) 01/15/21 07:58 99.2 99.2 Comments unable to obtain 2/2 clinical state HEENT: Other (nc at perrl nose clear orally intubated neck no lad no thyromegaly ) Lungs: Crackles Cardiovascular: S1, S2 Abdomen: Soft, Non-tender, Other (no mass obese) Extremities: Other (edema) Skin: Warm Labs Laboratory Tests Test 01/13/21 11:29 01/13/21 18:10 01/13/21 23:57 01/14/21 05:20 Glucose (Fingerstick) 94 mg/dL (70-99) 95 mg/dL (70-99) 99 mg/dL (70-99) White Blood Count 8.2 x10^3/uL (4.0-11.0) Red Blood Count 3.52 x10^6/uL (3.50-5.40) Hemoglobin 8.7 g/dL (12.0-15.5) Hematocrit 27.8 % (36.0-47.0) Mean Corpuscular Volume 79 fL (79-100) Mean Corpuscular Hemoglobin 25 pg (25-35) Mean Corpuscular Hemoglobin Concent 31 g/dL (31-37) Red Cell Distribution Width 16.1 % (11.5-14.5) Platelet Count 230 x10^3/uL (140-400) Neutrophils (%) (Auto) 64 % (31-73) Lymphocytes (%) (Auto) 18 % (24-48) Monocytes (%) (Auto) 15 % (0-9) Eosinophils (%) (Auto) 3 % (0-3) Basophils (%) (Auto) 0 % (0-3) Neutrophils # (Auto) 5.3 x10^3/uL (1.8-7.7) Lymphocytes # (Auto) 1.4 x10^3/uL (1.0-4.8) Monocytes # (Auto) 1.2 x10^3/uL (0.0-1.1) Eosinophils # (Auto) 0.3 x10^3/uL (0.0-0.7) Basophils # (Auto) 0.0 x10^3/uL (0.0-0.2) Sodium Level 144 mmol/L (136-145) Potassium Level 4.0 mmol/L (3.5-5.1) Chloride Level 107 mmol/L (98-107) Carbon Dioxide Level 32 mmol/L (21-32) Anion Gap 5 (6-14) Blood Urea Nitrogen 20 mg/dL (7-20) Creatinine 1.4 mg/dL (0.6-1.0) Estimated GFR (Cockcroft-Gault) 46.1 BUN/Creatinine Ratio 14 (6-20) Glucose Level 88 mg/dL (70-99) Calcium Level 8.7 mg/dL (8.5-10.1) Total Bilirubin 0.2 mg/dL (0.2-1.0) Aspartate Amino Transf (AST/SGOT) 32 U/L (15-37) Alanine Aminotransferase (ALT/SGPT) 13 U/L (14-59) Alkaline Phosphatase 60 U/L (46-116) Total Protein 6.2 g/dL (6.4-8.2) Albumin 1.8 g/dL (3.4-5.0) Albumin/Globulin Ratio 0.4 (1.0-1.7) Test 01/14/21 05:21 01/14/21 07:30 01/14/21 12:52 01/14/21 17:58 Glucose (Fingerstick) 90 mg/dL (70-99) 85 mg/dL (70-99) 95 mg/dL (70-99) O2 Saturation 98 % (92-99) Arterial Blood pH 7.43 (7.35-7.45) Arterial Blood pCO2 at Patient Temp 48 mmHg (35-46) Arterial Blood pO2 at Patient Temp 108 mmHg (65-108) Arterial Blood HCO3 31 mmol/L (21-28) Arterial Blood Base Excess 6 mmol/L (-3-3) FiO2 40 Test 01/15/21 00:30 01/15/21 05:27 01/15/21 07:40 Glucose (Fingerstick) 107 mg/dL (70-99) 110 mg/dL (70-99) O2 Saturation 99 % (92-99) Arterial Blood pH 7.45 (7.35-7.45) Arterial Blood pCO2 at Patient Temp 46 mmHg (35-46) Arterial Blood pO2 at Patient Temp 131 mmHg (65-108) Arterial Blood HCO3 31 mmol/L (21-28) Arterial Blood Base Excess 6 mmol/L (-3-3) FiO2 40 Laboratory Tests Test 01/14/21 12:52 01/14/21 17:58 01/15/21 00:30 01/15/21 05:27 Glucose (Fingerstick) 85 mg/dL (70-99) 95 mg/dL (70-99) 107 mg/dL (70-99) 110 mg/dL (70-99) Test 01/15/21 07:40 O2 Saturation 99 % (92-99) Arterial Blood pH 7.45 (7.35-7.45) Arterial Blood pCO2 at Patient Temp 46 mmHg (35-46) Arterial Blood pO2 at Patient Temp 131 mmHg (65-108) Arterial Blood HCO3 31 mmol/L (21-28) Arterial Blood Base Excess 6 mmol/L (-3-3) FiO2 40 Medications Active Scripts Medications Dose Route/Sig Max Daily Dose Days Date Category Dose Instructions Voltaren (Diclofenac Sodium) 100 Gm Gel..gram. 1 Gm TP QID 30 12/10/20 Reported apply to affected area(s) Oxycodone Hcl 5 Mg Capsule 5 Mg PO PRN Q6HRS PRN 12/08/20 Reported Nystatin 15 Gm Powder 1 [place] TP BID 7 12/08/20 Reported apply to affected area(s) Ondansetron Odt (Ondansetron) 4 Mg Tab.rapdis 1 Tab PO PRN Q8HRS PRN 11/05/20 Reported Reglan (Metoclopramide Hcl) 10 Mg Tablet 1 Tab PO QID 30 11/05/20 Reported before food and bedtime Pantoprazole Sodium (Pantoprazole Sodium) 40 Mg Tablet.dr 40 Mg PO BIDAC 30 06/21/20 Rx Losartan Potassium 100 Mg Tablet 100 Mg PO DAILY 05/03/20 Reported Aspirin 325 Mg Tablet 1 Tab PO DAILY 05/03/20 Reported Metformin Hcl 500 Mg Tablet 500 Mg PO BIDWMEALS 05/03/20 Reported Bumetanide 1 Mg Tablet 1 Mg PO BID 04/02/20 Reported Insulin Aspart 100 Unit/1 Ml Vial 60 Unit SQ TIDAC 04/02/20 Reported novolg flex pen Isosorbide Mononitrate Er (Isosorbide Mononitrate) 120 Mg Tab.er.24h 120 Mg PO DAILY 04/02/20 Reported NITROGLYCERIN SubLingual (Nitroglycerin) 0.4 Mg Tab.subl 0.4 Mg SL PRN Q5MIN PRN 04/02/20 Reported Albuterol Sulfate Neb Soln (Albuterol Sulfate) 2.5 Mg/3 Ml Vial.neb 2.5 Mg NEB Q4-6HRS PRN 04/02/20 Reported Levemir Flextouch (Insulin Detemir) 100 Unit/1 Ml Insuln.pen 60 Unit SQ HS 04/02/20 Reported Hydralazine Hcl 25 Mg Tablet 25 Mg PO BID 04/02/20 Reported Fluticasone Propionate Nasal [place] (Fluticasone Propionate) 16 Gm [place].susp 2 [place] NS DAILY 06/18/19 Reported Zolpidem Tartrate 5 Mg Tablet 5 Mg PO PRN QHS PRN 06/18/19 Reported Amlodipine Besylate 10 Mg Tablet 10 Mg PO DAILY 06/18/19 Reported Gabapentin 600 Mg Tablet 600 Mg PO BID 06/18/19 Reported Potassium Chloride (Potassium Chloride) 20 Meq Tablet.er 20 Meq PO BID 06/18/19 Reported Clopidogrel (Clopidogrel Bisulfate) 75 Mg Tablet 75 Mg PO DAILYWBKFT 75 11/10/17 Rx Proair Respiclick (Albuterol Sulfate) 90 Mcg Aer.pow.ba 2 Puff IH PRN Q4-6HRS PRN 09/08/16 Reported Cyclobenzaprine Hcl 10 Mg Tablet 1 Tab PO BID PRN 09/08/16 Reported Requip (Ropinirole Hcl) 1 Mg Tablet 1 Tab PO QHS 09/08/16 Reported Crestor (Rosuvastatin Calcium) 20 Mg Tablet 20 Mg PO HS 10/02/15 Reported LAST DOSE: 10/01/15 BEDTIME NEXT DOSE: 10/02/15 BEDTIME Oxybutynin Chloride 5 Mg Tablet 1 Tab PO DAILY 10/02/15 Reported LAST DOSE: 10/02/15 AM NEXT DOSE: 10/03/15 AM Comments CXR 01/10/21 IMPRESSION: Resolution of left pleural effusion. Unchanged bilateral opacities. CXR 01/07 IMPRESSION: 1. Diffuse interstitial prominence may be seen with interstitial pulmonary edema or atypical infectious/inflammatory process. 2. Support lines and tubes as above. 3. Mild cardiomegaly. Impression . 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 Echo 12/2019 with LVEF 45%, improved on cath on 12/07 Coronary artery disease with recent -- cath 12/07 showed patent long stented proximal to distal LAD. No lesions needing intervention were noted. Echo with LVEF 55 to 60%. Type 2 diabetes. Chronic obstructive pulmonary disease. Morbid obesity. Hypertension. Obstructive sleep apnea. MIRIAM cr trending down Plan . UPDATED 01/15/21 Continue current vent support in AC mode --12/450/40% and PEEP of 5 Follow ID recs--now off ABX Follow surgery recs-- recommends comfort measures, considering trach 01/22/21 Follow GI recs- planned for PEG this week Follow cardiology recs--no further work at this time Follow Nephrology recs--depakote, seizure precautions DVT/GI PPX-- sub q heparin D/W RN and RT FULL CODE UPDATED 01/14/21 Continue current vent support in AC mode --12/450/40% and PEEP of 5 Follow ID recs-- ABX---Zoysn-- BC NGTD Follow surgery recs-- planned for Trach this week Follow GI recs- planned for PEG this week Follow cardiology recs--no further work at this time Follow Nephrology recs-- DVT/GI PPX-- D/W RN and RT FULL CODE UPDATED 01/13/21 Continue current vent support A/C 40% and PEEP of 5 ABG/CXR reviewed Follow ID recs-- ABX---Zoysn Consult surgery for Trach Consult GI for PEG placement Follow cardiology recs-- Follow Nephrology recs-- monitor renal function Follow neurology recs--no plans for further testing at this time Nutritional Support DVT/GI PPX-- D/W RN and RT FULL CODE UPDATED 01/12/21 Continue current vent support A/C Follow ID recs-- ABX for aspiration PNA, Follow Cultures,Sputum culture positive for staph aureus-- 01/06 BC NGTD Consult surgery for possible PEG and Trach next week Follow cardiology recs-- Follow Nephrology recs Follow neurology recs--no plans for further testing at this time Nutritional Support DVT/GI PPX-- Sub Q heparin-- on hold for bloody secretion from ET tube D/W RN and RT D/W Family, poor prognosis, pt. remains a FULL CODE UPDATED 01/11/21 Continue current vent support A/C 16/450/5/40% ABG/CXR-- reviewed -- reduce Fi02 to 35% Follow ID recs-- ABX for aspiration PNA, Follow Cultures,Sputum culture positive for staph aureus-- 01/06 BC NGTD Follow cardiology recs-- Follow Nephrology recs--worsening renal function today Follow neurology recs--no plans for further testing at this time Nutritional Support DVT/GI PPX-- Sub Q heparin D/W RN and RT D/W Family, poor prognosis, pt. 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 Follow Nephrology recs Follow neurology recs-- anoxic brain injury/not brain /seizures-=- no further workup at this time --poor prognosis Nutritional Support DVT/GI PPX-- Sub Q heparin D/W RN and RT Dr.riffle Marroquin/Corey Braxton in regards to goals or care Updated 01/08 Continue current support Follow neurology input, EEG performed today Dr. Lozano discussed current findings with the family Patient family to decide on possible withdrawing of care UPDATED 01/07/21 Continue current vent support 40% and PEEP ABG/CXR-- reviewed Follow ID recs-- ABX for aspiration PNA, Follow Cultures,Sputum culture positive for staph aureus and Gram-positive bacteremia bacteremia 2 out of 4 bottles present on admission ID pending Follow cardiology recs -- VFIB, CAD, HTN, and Acute on chronic combined diastol ic and systolic heart failure. Follow Nephrology recs -- MIRIAM with improving renal function -- IVF Follow neurology recs-- anoxic brain injury/not brain --poor prognosis Nutritional Support DVT/GI PPX-- Sub Q heparin D/W RN and RT PLAN: 1. cont vent support setting reviewed, abg reviewed, personally decreased rr to 16 not alert enough to do sbt off sedation 2. cont antibiotics. 3. Monitor blood sugars. 4. Neurology consulted for questionable seizures. on anti sz meds 5. elevate hob 6. DVT and GI prophylaxis. 7. follow Cardiology rec, p.r.n. hydralazine for elevated blood pressure. 8. has le edema, le venous doppler no dvt discussed w rn rt RAF CADET MD Jan 15, 2021 09:36
--- NOTE | 2021-01-15 10:18 | PDOC ---
PROGRESS NOTES Date of Service DATE: 01/15/21 TIME: 10:15 Assessment Problems Medical Problems: (1) Acute renal failure Status: Acute (2) Altered mental status Status: Acute (3) Aspiration pneumonia Status: Acute (4) Hyperkalemia Status: Acute (5) Respiratory failure Status: Acute (6) Sepsis Status: Acute Metabolic encephalopathy, only has basic brainstem reflexes PLEDS and burst-suppression on EEG Respiratory failure, aspiration pneumonia, possible sepsis Acute STEMI, coronary artery disease status post stenting, chronic obstructive pulmonary disease, asthma, congestive heart failure, morbid obesity, renal failure, hyperkalemia, severe protein malnutrition, hypertensive urgency, hyper lipidemia, type 2 diabetes, obstructive sleep apnea, restless leg syndrome, peripheral neuropathy Plan Son Lance wants trach and PEG, scheduled for next week Continue treating medical issues Aggressive treatment of the seizure activity is unlikely to affect outcome and would cloud the examination Overall prognosis is poor, but patient is not brain Subjective None Objective Vital Signs Date Time Temp Pulse Resp B/P (MAP) Pulse Ox O2 Delivery O2 Flow Rate FiO2 01/15/21 10:00 58 14 126/57 (80) 100 Ventilator 01/15/21 07:58 99.2 99.2 Intake and Output 01/15/21 07:00 Intake Total 1735.5 ml Output Total 1910 ml Balance -174.5 ml Intake IV Total 257.5 ml Tube Feeding 986 ml Blood Product IV Normal Saline Flush 220 ml Other 272 ml Output Urine Total 1910 ml Gastric Drainage Total 0 ml PHYSICAL EXAM Has been off sedation since 01/05, no response to pain Triggers ventilator Does have myoclonic movements of right hand, not as much as yesterday Pupils unreactive EOMI. roving eye movements CN: no focal findings. Muscle tone: normal. Muscle strength: No response DTR: 1+ Plantar reflex: Silent Gait: not examined Sensory exam: Not cooperative. Cerebellar: Not cooperative Review of Relevant I have reviewed the following items shady (where applicable) has been applied. Labs Laboratory Tests Test 01/13/21 11:29 01/13/21 18:10 01/13/21 23:57 01/14/21 05:20 Glucose (Fingerstick) 94 mg/dL (70-99) 95 mg/dL (70-99) 99 mg/dL (70-99) White Blood Count 8.2 x10^3/uL (4.0-11.0) Red Blood Count 3.52 x10^6/uL (3.50-5.40) Hemoglobin 8.7 g/dL (12.0-15.5) Hematocrit 27.8 % (36.0-47.0) Mean Corpuscular Volume 79 fL (79-100) Mean Corpuscular Hemoglobin 25 pg (25-35) Mean Corpuscular Hemoglobin Concent 31 g/dL (31-37) Red Cell Distribution Width 16.1 % (11.5-14.5) Platelet Count 230 x10^3/uL (140-400) Neutrophils (%) (Auto) 64 % (31-73) Lymphocytes (%) (Auto) 18 % (24-48) Monocytes (%) (Auto) 15 % (0-9) Eosinophils (%) (Auto) 3 % (0-3) Basophils (%) (Auto) 0 % (0-3) Neutrophils # (Auto) 5.3 x10^3/uL (1.8-7.7) Lymphocytes # (Auto) 1.4 x10^3/uL (1.0-4.8) Monocytes # (Auto) 1.2 x10^3/uL (0.0-1.1) Eosinophils # (Auto) 0.3 x10^3/uL (0.0-0.7) Basophils # (Auto) 0.0 x10^3/uL (0.0-0.2) Sodium Level 144 mmol/L (136-145) Potassium Level 4.0 mmol/L (3.5-5.1) Chloride Level 107 mmol/L (98-107) Carbon Dioxide Level 32 mmol/L (21-32) Anion Gap 5 (6-14) Blood Urea Nitrogen 20 mg/dL (7-20) Creatinine 1.4 mg/dL (0.6-1.0) Estimated GFR (Cockcroft-Gault) 46.1 BUN/Creatinine Ratio 14 (6-20) Glucose Level 88 mg/dL (70-99) Calcium Level 8.7 mg/dL (8.5-10.1) Total Bilirubin 0.2 mg/dL (0.2-1.0) Aspartate Amino Transf (AST/SGOT) 32 U/L (15-37) Alanine Aminotransferase (ALT/SGPT) 13 U/L (14-59) Alkaline Phosphatase 60 U/L (46-116) Total Protein 6.2 g/dL (6.4-8.2) Albumin 1.8 g/dL (3.4-5.0) Albumin/Globulin Ratio 0.4 (1.0-1.7) Test 01/14/21 05:21 01/14/21 07:30 01/14/21 12:52 01/14/21 17:58 Glucose (Fingerstick) 90 mg/dL (70-99) 85 mg/dL (70-99) 95 mg/dL (70-99) O2 Saturation 98 % (92-99) Arterial Blood pH 7.43 (7.35-7.45) Arterial Blood pCO2 at Patient Temp 48 mmHg (35-46) Arterial Blood pO2 at Patient Temp 108 mmHg (65-108) Arterial Blood HCO3 31 mmol/L (21-28) Arterial Blood Base Excess 6 mmol/L (-3-3) FiO2 40 Test 01/15/21 00:30 01/15/21 05:27 01/15/21 07:40 Glucose (Fingerstick) 107 mg/dL (70-99) 110 mg/dL (70-99) O2 Saturation 99 % (92-99) Arterial Blood pH 7.45 (7.35-7.45) Arterial Blood pCO2 at Patient Temp 46 mmHg (35-46) Arterial Blood pO2 at Patient Temp 131 mmHg (65-108) Arterial Blood HCO3 31 mmol/L (21-28) Arterial Blood Base Excess 6 mmol/L (-3-3) FiO2 40 Laboratory Tests Test 01/14/21 12:52 01/14/21 17:58 01/15/21 00:30 01/15/21 05:27 Glucose (Fingerstick) 85 mg/dL (70-99) 95 mg/dL (70-99) 107 mg/dL (70-99) 110 mg/dL (70-99) Test 01/15/21 07:40 O2 Saturation 99 % (92-99) Arterial Blood pH 7.45 (7.35-7.45) Arterial Blood pCO2 at Patient Temp 46 mmHg (35-46) Arterial Blood pO2 at Patient Temp 131 mmHg (65-108) Arterial Blood HCO3 31 mmol/L (21-28) Arterial Blood Base Excess 6 mmol/L (-3-3) FiO2 40 Microbiology 01/06/21 Blood Culture - Final, Complete NO GROWTH AFTER 5 DAYS 01/05/21 Gram Stain Evaluation - Final, Complete 01/05/21 Respiratory Culture - Final, Complete 01/05/21 Antimicrobic Susceptibility - Final, Complete 01/04/21 Urine Culture - Final, Complete Medications Current Medications Amiodarone HCl 450 mg/Dextrose 259 ml @ 33 mls/hr 1X ONCE IV Last administered on 01/04/21at 11:40; Start 01/04/21 at 11:15; Stop 01/04/21 at 19:05; Status DC Midazolam HCl 100 ml @ 1 mls/hr 1X ONCE IV Last administered on 01/04/21at 11:39; Start 01/04/21 at 11:30; Stop 01/05/21 at 09:51; Status DC Sodium Chloride 1,000 ml @ 1,000 mls/hr 1X ONCE IV Last administered on 01/04/21at 12:13; Start 01/04/21 at 11:45; Stop 01/04/21 at 12:44; Status DC Sodium Bicarbonate (Sodium Bicarb Adult 8.4% Syr) 50 meq 1X ONCE IV Last administered on 01/04/21at 12:55; Start 01/04/21 at 12:00; Stop 01/04/21 at 12:01; Status DC Dextrose (Dextrose 50%-Water Syringe) 25 gm 1X ONCE IV Last administered on 01/04/21at 12:53; Start 01/04/21 at 12:00; Stop 01/04/21 at 12:01; Status DC Insulin Human Regular (HumuLIN R VIAL) 10 unit 1X ONCE IV Last administered on 01/04/21at 12:52; Start 01/04/21 at 12:00; Stop 01/04/21 at 12:01; Status DC Piperacillin Sod/ Tazobactam Sod 3.375 gm/Sodium Chloride 50 ml @ 100 mls/hr 1X ONCE IV Last administered on 01/04/21at 12:12; Start 01/04/21 at 12:00; Stop 01/04/21 at 12:29; Status DC Succinylcholine Chloride (Anectine) 100 mg 1X ONCE IV Last administered on 01/04/21at 11:03; Start 01/04/21 at 12:45; Stop 01/04/21 at 12:46; Status DC Etomidate (Amidate) 20 mg 1X ONCE IV Last administered on 01/04/21at 11:02; Start 01/04/21 at 12:45; Stop 01/04/21 at 12:46; Status DC Rocuronium [place] (Zemuron) 100 mg 1X ONCE IV ; Start 01/04/21 at 12:45; Stop 01/04/21 at 12:46; Status Cancel Midazolam HCl (Versed) 5 mg 1X ONCE IV Last administered on 01/04/21at 11:30; Start 01/04/21 at 12:45; Stop 01/04/21 at 12:46; Status DC Rocuronium [place] (Zemuron) 100 mg 1X ONCE IV Last administered on 01/04/21at 11:33; Start 01/04/21 at 12:45; Stop 01/04/21 at 12:46; Status DC Ondansetron HCl (Zofran) 4 mg PRN Q8HRS PRN IV NAUSEA/VOMITING; Start 01/04/21 at 13:00; Stop 01/05/21 at 09:48; Status DC Sodium Chloride 1,000 ml @ 100 mls/hr Q10H IV Last administered on 01/05/21at 09:41; Start 01/04/21 at 13:00; Stop 01/05/21 at 12:59; Status DC Ondansetron HCl (Zofran) 4 mg PRN Q6HRS PRN IVP NAUSEA/VOMITING; Start 01/04/21 at 14:00 Famotidine (Pepcid Vial) 20 mg QHS IVP Last administered on 01/14/21at 21:29; Start 01/04/21 at 21:00 Heparin Sodium (Porcine) (Heparin Sodium) 5,000 unit Q8HRS SQ Last administered on 01/15/21at 05:30; Start 01/04/21 at 14:00 Sodium Chloride (Normal Saline Flush) 3 ml QSHIFT PRN IV AFTER MEDS AND BLOOD DRAWS; Start 01/04/21 at 14:00 Bisacodyl (Dulcolax Supp) 10 mg PRN DAILY PRN SC CONSTIPATION; Start 01/04/21 at 14:00 Piperacillin Sod/ Tazobactam Sod (Zosyn Per Pharmacy) 1 each PRN DAILY PRN MC SEE COMMENTS; Start 01/04/21 at 14:00; Stop 01/04/21 at 17:48; Status DC Piperacillin Sod/ Tazobactam Sod 2.25 gm/Sodium Chloride 50 ml @ 100 mls/hr Q6HRS IV ; Start 01/04/21 at 18:00; Stop 01/04/21 at 17:49; Status DC Dextrose (Dextrose 50%-Water Syringe) 25 gm 1X ONCE IV Last administered on 01/04/21at 16:21; Start 01/04/21 at 16:15; Stop 01/04/21 at 16:16; Status DC Meropenem 500 mg/ Sodium Chloride 50 ml @ 100 mls/hr Q8HRS IV ; Start 01/04/21 at 18:00; Status Cancel Piperacillin Sod/ Tazobactam Sod 2.25 gm/Sodium Chloride 50 ml @ 100 mls/hr Q8HRS IV Last administered on 01/08/21at 06:01; Start 01/04/21 at 22:00; Stop 01/08/21 at 07:50; Status DC Linezolid/Dextrose 300 ml @ 300 mls/hr Q12HR IV Last administered on 01/07/21at 21:23; Start 01/04/21 at 21:00; Stop 01/08/21 at 10:41; Status DC Valproic Acid 500 mg/Dextrose 55 ml @ 55 mls/hr Q12HR IV Last administered on 01/05/21at 09:40; Start 01/05/21 at 09:00; Stop 01/05/21 at 17:28; Status DC Valproic Acid 1000 mg/Dextrose 60 ml @ 60 mls/hr 1X ONCE IV Last administered on 01/04/21at 19:30; Start 01/04/21 at 19:30; Stop 01/04/21 at 20:29; Status DC Lorazepam (Ativan Inj) 2 mg PRN Q2HRS PRN IVP ANXIETY / AGITATION Last administered on 01/05/21at 23:30; Start 01/04/21 at 19:30; Stop 01/08/21 at 08:16; Status DC Hydralazine HCl (Apresoline Inj) 10 mg PRN Q6HRS PRN IVP ELEVATED BP, SEE COMMENTS Last administered on 01/10/21at 13:25; Start 01/04/21 at 19:45 Amiodarone HCl 450 mg/Dextrose 259 ml @ 33 mls/hr CONT PRN IV SEE I/O RECORD Last administered on 01/05/21at 11:50; Start 01/04/21 at 20:15; Stop 01/05/21 at 11:50; Status DC Midazolam HCl 100 ml @ 1 mls/hr CONT PRN IV SEE I/O RECORD Last administered on 01/05/21at 02:00; Start 01/05/21 at 02:00; Stop 01/08/21 at 08:16; Status DC Daptomycin 600 mg/ Sodium Chloride 50 ml @ 100 mls/hr Q48H IV Last administered on 01/07/21at 15:40; Start 01/05/21 at 16:00; Stop 01/08/21 at 07:52; Status DC Scopolamine (Transderm-Scop) 1 patch Q3DAYS TD Last administered on 01/08/21at 08:08; Start 01/05/21 at 17:00; Stop 01/08/21 at 08:16; Status DC Valproic Acid 750 mg/Dextrose 57.5 ml @ 57.5 mls/hr Q12HR IV Last administered on 01/15/21at 08:21; Start 01/05/21 at 21:00 Insulin Human Lispro (HumaLOG) 0-5 UNITS TIDWMEALS SQ Last administered on at 18:27; Start 01/05/21 at 18:30; Stop 01/06/21 at 08:42; Status DC Dextrose (Dextrose 50%-Water Syringe) 12.5 gm PRN Q15MIN PRN IV SEE COMMENTS; Start 01/05/21 at 18:15 Amiodarone HCl 450 mg/Dextrose 259 ml @ 0 mls/hr 1X ONCE IV Last administered on 01/06/21at 02:00; Start 01/06/21 at 02:00; Stop 01/06/21 at 02:01; Status DC Insulin Human Lispro (HumaLOG) 0-5 UNITS Q6HRS SQ ; Start 01/06/21 at 12:00 Amiodarone HCl 450 mg/Dextrose 259 ml @ 0 mls/hr 1X ONCE IV Last administered on 01/06/21at 17:05; Start 01/06/21 at 17:00; Stop 01/06/21 at 17:01; Status DC Amiodarone HCl (Cordarone) 400 mg DAILY PO ; Start 01/07/21 at 14:00; Stop 01/07/21 at 13:15; Status DC Multi-Ingred Cream/Lotion/Oil/ Oint (Artificial Tears Eye Ointment) 1 chio PRN Q1HR PRN OU DRY EYE Last administered on 01/07/21at 14:14; Start 01/07/21 at 13:00 Aspirin (Blessing Aspirin) 325 mg DAILY PO Last administered on 01/08/21at 08:12; Start 01/08/21 at 09:00; Stop 01/09/21 at 09:16; Status DC Clopidogrel Bisulfate (Plavix) 75 mg DAILYWBKFT PO Last administered on 01/15/21at 08:22; Start 01/08/21 at 08:00 Hydralazine HCl (Apresoline) 25 mg BID PO Last administered on 01/15/21at 08:22; Start 01/07/21 at 21:00 Metoprolol Succinate (Toprol Xl) 25 mg DAILY PO ; Start 01/08/21 at 09:00; Stop 01/08/21 at 07:44; Status DC Isosorbide Mononitrate (Imdur) 120 mg DAILY PO ; Start 01/08/21 at 09:00; Stop 01/08/21 at 08:16; Status DC Losartan Potassium (Cozaar) 100 mg DAILY PO Last administered on 01/15/21at 08:21; Start 01/08/21 at 09:00 Atorvastatin Calcium (Lipitor) 80 mg QHS PO Last administered on 01/14/21at 21:30; Start 01/07/21 at 21:00 Epinephrine HCl (EPINEPHrine SYRINGE) 2 mg STK-MED ONCE .ROUTE ; Start 01/04/21 at 11:00; Stop 01/07/21 at 17:12; Status DC Amiodarone HCl (Cordarone) 300 mg STK-MED ONCE .ROUTE ; Start 01/04/21 at 11:00; Stop 01/07/21 at 17:12; Status DC Metoprolol Tartrate (Lopressor) 12.5 mg BID PO Last administered on 01/15/21at 08:22; Start 01/08/21 at 09:00 Piperacillin Sod/ Tazobactam Sod 3.375 gm/Sodium Chloride 50 ml @ 100 mls/hr Q6HRS IV Last administered on 01/15/21at 05:29; Start 01/08/21 at 12:00; Stop 01/15/21 at 07:56; Status DC Daptomycin 600 mg/ Sodium Chloride 50 ml @ 100 mls/hr Q24H IV Last administered on 01/11/21at 15:56; Start 01/08/21 at 16:00; Stop 01/12/21 at 09:34; Status DC Isosorbide Mononitrate (Ismo) 20 mg [id number] PO Last administered on 01/15/21at 08:22; Start 01/08/21 at 09:00 Aspirin (Aspirin Chewable) 81 mg DAILYWBKFT PO Last administered on 01/15/21at 08:22; Start 01/08/21 at 08:30 Glycopyrrolate (Robinul) 1 mg PRN DAILY PRN IV Secretions Last administered on 01/13/21at 09:13; Start 01/08/21 at 08:45 Potassium Chloride/Water 100 ml @ 100 mls/hr Q1H IV Last administered on 01/08/21at 13:37; Start 01/08/21 at 12:00; Stop 01/08/21 at 13:59; Status DC Potassium Bicarbonate (Potassium Effervescent Tablet) 40 meq 1X ONCE PEG Last administered on 01/09/21at 11:02; Start 01/09/21 at 09:30; Stop 01/09/21 at 09:31; Status DC Potassium Bicarbonate (Potassium Effervescent Tablet) 40 meq 1X ONCE PO Last administered on 01/10/21at 07:19; Start 01/10/21 at 08:00; Stop 01/10/21 at 08:01; Status DC Furosemide (Lasix) 40 mg 1X ONCE IVP Last administered on 01/10/21at 17:48; Start 01/10/21 at 17:45; Stop 01/10/21 at 17:46; Status DC Potassium Bicarbonate (Potassium Effervescent Tablet) 40 meq 1X ONCE PEG Last administered on 01/10/21at 19:15; Start 01/10/21 at 19:00; Stop 01/10/21 at 19:01; Status DC Active Scripts Active Promethazine Hcl 12.5 Mg Tablet 12.5 Mg PO PRN Q6HRS PRN 30 Days Metoprolol Succinate ( Xl ) (Metoprolol Succinate) 25 Mg Tab.er.24h 25 Mg PO DAILY 30 Days Pantoprazole Sodium (Pantoprazole Sodium) 40 Mg Tablet.dr 40 Mg PO BIDAC 30 Days Clopidogrel (Clopidogrel Bisulfate) 75 Mg Tablet 75 Mg PO DAILYWBKFT 75 Days Reported Voltaren (Diclofenac Sodium) 100 Gm Gel..gram. 1 Gm TP QID 30 Days apply to affected area(s) Nystatin 15 Gm Powder 1 Chio TP BID 7 Days apply to affected area(s) Ondansetron Odt (Ondansetron) 4 Mg Tab.rapdis 1 Tab PO PRN Q8HRS PRN Reglan (Metoclopramide Hcl) 10 Mg Tablet 1 Tab PO QID 30 Days before food and bedtime Losartan Potassium 100 Mg Tablet 100 Mg PO DAILY Aspirin 325 Mg Tablet 1 Tab PO DAILY Metformin Hcl 500 Mg Tablet 500 Mg PO BIDWMEALS Bumetanide 1 Mg Tablet 1 Mg PO BID Insulin Aspart 100 Unit/1 Ml Vial 60 Unit SQ TIDAC novolg flex pen Isosorbide Mononitrate Er (Isosorbide Mononitrate) 120 Mg Tab.er.24h 120 Mg PO DAILY NITROGLYCERIN SubLingual (Nitroglycerin) 0.4 Mg Tab.subl 0.4 Mg SL PRN Q5MIN PRN Albuterol Sulfate Neb Soln (Albuterol Sulfate) 2.5 Mg/3 Ml Vial.neb 2.5 Mg NEB Q4-6HRS PRN Levemir Flextouch (Insulin Detemir) 100 Unit/1 Ml Insuln.pen 60 Unit SQ HS Hydralazine Hcl 25 Mg Tablet 25 Mg PO BID Fluticasone Propionate Nasal [place] (Fluticasone Propionate) 16 Gm [place].susp 2 [place] NS DAILY Zolpidem Tartrate 5 Mg Tablet 5 Mg PO PRN QHS PRN Amlodipine Besylate 10 Mg Tablet 10 Mg PO DAILY Gabapentin 600 Mg Tablet 600 Mg PO BID Potassium Chloride (Potassium Chloride) 20 Meq Tablet.er 20 Meq PO BID Proair Respiclick (Albuterol Sulfate) 90 Mcg Aer.pow.ba 2 Puff IH PRN Q4-6HRS PRN Cyclobenzaprine Hcl 10 Mg Tablet 1 Tab PO BID PRN Requip (Ropinirole Hcl) 1 Mg Tablet 1 Tab PO QHS Crestor (Rosuvastatin Calcium) 20 Mg Tablet 20 Mg PO HS LAST DOSE: 10/01/15 BEDTIME NEXT DOSE: 10/02/15 BEDTIME Oxybutynin Chloride 5 Mg Tablet 1 Tab PO DAILY LAST DOSE: 10/02/15 AM NEXT DOSE: 10/03/15 AM Vitals/I & O Vital Sign - Last 24 Hours 01/14/21 01/14/21 01/14/21 01/14/21 11:00 11:21 12:00 12:00 Temp 99.0 99.0 Pulse 72 76 Resp 12 12 B/P (MAP) 148/61 (90) 177/96 (123) Pulse Ox 100 100 100 O2 Delivery Ventilator Ventilator Mechanical Ventilator Ventilator 01/14/21 01/14/21 01/14/21 01/14/21 12:29 12:40 12:49 13:00 Pulse 66 91 91 72 Resp 12 B/P (MAP) 135/53 171/65 171/65 149/81 (103) Pulse Ox 100 O2 Delivery Ventilator 01/14/21 01/14/21 01/14/21 01/14/21 13:09 13:15 14:00 15:00 Pulse 77 82 74 Resp 12 12 B/P (MAP) 149/81 152/89 (110) 150/67 (94) Pulse Ox 100 100 100 O2 Delivery Ventilator Ventilator Ventilator 01/14/21 01/14/21 01/14/21 01/14/21 15:25 16:00 16:00 17:00 Temp 99.1 99.1 Pulse 72 78 Resp 12 12 B/P (MAP) 133/56 (81) 140/56 (84) Pulse Ox 100 100 100 O2 Delivery Ventilator Mechanical Ventilator Ventilator Ventilator 01/14/21 01/14/21 01/14/21 01/14/21 17:20 18:00 19:00 19:15 Pulse 85 82 Resp 12 16 B/P (MAP) 148/68 (94) 148/64 (92) Pulse Ox 99 99 99 98 O2 Delivery Ventilator Ventilator Ventilator Ventilator 01/14/21 01/14/21 01/14/21 01/14/21 20:00 20:00 20:46 21:00 Temp 98.7 98.7 Pulse 74 76 Resp 14 14 B/P (MAP) 137/62 (87) 102/50 (67) Pulse Ox 99 99 100 O2 Delivery Mechanical Ventilator Ventilator Ventilator Ventilator 01/14/21 01/14/21 01/14/21 01/14/21 21:30 21:30 22:00 22:53 Pulse 76 76 73 Resp 14 B/P (MAP) 102/50 102/50 155/69 (97) Pulse Ox 98 99 O2 Delivery Ventilator Ventilator 01/14/21 01/15/21 01/15/21 01/15/21 23:00 00:00 00:00 01:00 Temp 98.9 98.9 Pulse 62 60 62 Resp 14 12 12 B/P (MAP) 134/74 (94) 113/49 (70) 120/67 (84) Pulse Ox 100 100 100 O2 Delivery Ventilator Ventilator Mechanical Ventilator Ventilator 01/15/21 01/15/21 01/15/21 01/15/21 01:02 02:00 02:41 03:00 Pulse 74 82 Resp 16 12 B/P (MAP) 160/68 (98) 121/60 (80) Pulse Ox 99 100 100 100 O2 Delivery Ventilator Ventilator Ventilator Ventilator 01/15/21 01/15/21 01/15/21 01/15/21 04:00 04:00 05:00 05:35 Temp 98.0 98.0 Pulse 71 65 Resp 19 12 B/P (MAP) 149/63 (91) 140/57 (84) Pulse Ox 100 100 100 O2 Delivery Mechanical Ventilator Ventilator Ventilator Ventilator 01/15/21 01/15/21 01/15/21 01/15/21 06:00 07:00 07:40 07:58 Temp 99.2 99.2 Pulse 69 69 69 Resp 14 14 14 B/P (MAP) 160/88 (112) 133/58 (83) 145/69 (94) Pulse Ox 100 100 100 100 O2 Delivery Ventilator Ventilator Ventilator Ventilator 01/15/21 01/15/21 01/15/21 01/15/21 07:59 08:21 08:22 08:22 Pulse 69 69 69 B/P (MAP) 145/69 145/69 145/69 O2 Delivery Mechanical Ventilator 01/15/21 01/15/21 01/15/21 01/15/21 08:22 09:00 09:22 10:00 Pulse 69 61 58 Resp 14 14 B/P (MAP) 145/69 126/62 (83) 126/57 (80) Pulse Ox 100 100 100 O2 Delivery Ventilator Ventilator Ventilator Intake and Output 01/14/21 01/14/21 01/15/21 15:00 23:00 07:00 Intake Total 110 ml 979.5 ml 646 ml Output Total 625 ml 825 ml 460 ml Balance -515 ml 154.5 ml 186 ml Justicifation of Admission Dx: Justifications for Admission: Justification of Admission Dx: Yes SWATHI BOOTH MD Jan 15, 2021 10:17
--- NOTE | 2021-01-15 11:35 | PDOC ---
Renal-Progress Notes Subjective Notes Notes NO CHANGES History of Present Illness Hx of present illness ON THE VENT, STILL HAVING SEIZURES Vitals Vitals Vital Signs Date Time Temp Pulse Resp B/P (MAP) Pulse Ox O2 Delivery O2 Flow Rate FiO2 01/15/21 11:00 60 14 124/51 (75) 100 Ventilator 01/15/21 07:58 99.2 99.2 Weight Weight [ ] I.O. Intake and Output Intake and Output 01/15/21 07:00 Intake Total 1735.5 ml Output Total 1910 ml Balance -174.5 ml Intake IV Total 257.5 ml Tube Feeding 986 ml Blood Product IV Normal Saline Flush 220 ml Other 272 ml Output Urine Total 1910 ml Gastric Drainage Total 0 ml Labs Labs Laboratory Tests Test 01/14/21 12:52 01/14/21 17:58 01/15/21 00:30 01/15/21 05:27 Glucose (Fingerstick) 85 mg/dL (70-99) 95 mg/dL (70-99) 107 mg/dL (70-99) 110 mg/dL (70-99) Test 01/15/21 07:40 O2 Saturation 99 % (92-99) Arterial Blood pH 7.45 (7.35-7.45) Arterial Blood pCO2 at Patient Temp 46 mmHg (35-46) Arterial Blood pO2 at Patient Temp 131 mmHg (65-108) Arterial Blood HCO3 31 mmol/L (21-28) Arterial Blood Base Excess 6 mmol/L (-3-3) FiO2 40 Micro Micro Microbiology 01/06/21 Blood Culture - Final, Complete NO GROWTH AFTER 5 DAYS 01/05/21 Gram Stain Evaluation - Final, Complete 01/05/21 Respiratory Culture - Final, Complete 01/05/21 Antimicrobic Susceptibility - Final, Complete 01/04/21 Urine Culture - Final, Complete Review of Systems Constitutional: yes: unresponsive Physical Exam General Appearance: no apparent distress, febrile Respiratory: ventilator (Mode:A/C), decreased breath sounds Heart: S1S2 Abdomen: soft Genitourinary: bladder flat Extremities: pulses present, no edema Neurology: other (off sedation. Pupils fixed. not following commands ) Assessment Assessment IMP [id number] OF 2.4 TO 1.4 HYPERNATREMIA-RESOLVED HYPOKALEMIA-CORRECTED ACUTE RESP FAILURE PROB PNEUMONIA DM II DIONNE OBESITY BACTEREMIA SEIZURES PLAN ANTIBIOTICS CONT WATER FLUSHES CONT WITH TF VENT SUPPORT REMAINS CRITICALLY ILL NEUROLOGY EVAL AND TX APPRECIATE NEUROLOGY SON WANTS TRACH AND PEG WILL FOLLOW EFE COSTELLO MD Jan 15, 2021 11:35
--- NOTE | 2021-01-15 12:21 | PDOC ---
[employer] PROGRESS NOTE Date of Service DOS: DATE: 01/15/21 TIME: 12:18 Chief Complaint Chief Complaint Respiratory failure Status post CODE BLUE Severe anoxic brain injury Pneumonia Hyperkalemia Sepsis Obesity Protein malnutrition Hypertensive urgency Seizures CHF COPD History of Present Illness History of Present Illness 01/15/2021 Patient seen and examined in the ICU Discussed with RN Chart reviewed Discussed with case management The patient remains on the ventilator AC/12/450/40 percent with 5 of PEEP Scheduled to get tracheostomy on 01/22/2021 OG running at 35 cc an hour She has SCDs in place She has a Johnson to bedside drainage On Depakote drip Her right arm is twitching She remains critically ill with a poor prognosis but the family wants everything still done 01/14/2021 Patient seen and examined in the ICU She remains mechanically ventilated and is unresponsive despite no sedation AC/12/450/40 percent with 5 of PEEP Has IV Zosyn hanging Has Johnson to bedside drainage Discussed with RN Discussed with case management Chart reviewed She remains critically ill Ms Castro is a 60 year old female w/ PMHx Asthma, CAD s/p stenting x6, CHF, COPD, Diabetes-Type II, High Cholesterol, Hypertension, neuropathy, morbid obesity, RLS, insomnia who presented to ER after she was brought here by EMS from home after she was found unresponsive in her bed by her family. Patient was last known normal was 9 AM on 01/03/2021. family tried to call her but could not get a hold of her so they show up to her house, found her unresponsive in her bed. Per family, patient had a CPAP machine on but the mask slid off her face, there was lot of mucus and material around her face and on her neck area. Patient was responsive to painful stimuli but was very confused, did not follow command. EMS were called, they found her in respiratory distress, GCS of 7-8, they bagged her and brought her here. Upon arrival to room, patient was unresponsive to verbal, severe respiratory distress, need emergent intubation. During the difficult intubation patient kya me bradycardic and CODE BLUE was initiated. Patient subsequently went into ventricular fibrillation, underwent shock therapy and was initiated on intravenous amiodarone infusion and admitted to ICU. She has been admitted to [place] [id number] for intractable nausea and vomiting and PMC once has had this as well as intense pruritis for 6 months. Was seen and treated for same in November, underwent cardiac cath and GI consultation at the time, was discharged home. Her family stated that patient was seen here 2 days prior for epigastric abdominal pain. It was recommended that she need to stay in the hospital however patient did not want to stay in the hospital so she went home. AMA. 01/05: No acute events overnight. Patient seen and examined bedside. Patient remains intubated. Without sedation. Vent settings at 18/450/40/5. Patient is not responding to painful stimuli at this time. There is a lot of secretions. Currently not on any vasopressors 01/06: No acute events overnight. Patient withdraws to pain. Still intubated with vent settings at 16/450/40/5. Not on any sedation at this time. 01/07: No overnight events. Afebrile. On vent with no sedation for 48 hours FiO2 40% PEEP of 5. Not requiring vasopressors. Not making meaningful eye contact or meaningful movement. Minimal reflexes. Breathing over the vent. Discussed with son, Lance overall poor prognosis given what is likely anoxic e ncephalopathy. He wants to discuss with his aunt Liss and sister Camille future goals of care. 01/08: No events. Afebrile. Still with no meaningful activity no sedation on vent FiO2 40% PEEP of 5, ABG 7.45/46/142. No BM. Adequate UOP. No residuals on feeds. EEG interpreted by neurology as abnormal because of a severe diffuse disturbance of cerebral activity, consistent with a very poor prognosis from anoxic encephalopathy. 01/09: Overnight ventilated no significant activity he still off sedation. K3.2. Vent FiO2 40% PEEP of 5. Chest radiograph unchanged from prior. Right hand with new twitching, concerning for seizure activity, d/w neurology. D/w sons goals of care and grim neurologic prognosis. 01/10: Afebrile, K3.1. ABG 7.4 7/40/129 on 40% FiO2. CXR stable. Still with right hand tremor. Long d/w son, Lance, and his significant other. 01/11: No overnight events. Chest radiograph stable, ABG on 40% FiO2 and PEEP 5 was 7.48/46/137. Heart rate slowing down and blood pressure coming up a bit. Glucose stable. No sedating meds for over 96 hours. No meaningful interaction. Babinski reflexes demonstrated to family. 01/12: Afebrile overnight. Creatinine 1.3, Hb 9.2. Having more PVCs on monitor today. On 40% FiO2 PEEP of 5. Blood pressure little elevated requiring additional IV dose of hydralazine. Still with right arm twitching and irregular mouth movement. No meaningful neurologic interaction. Afebrile overnight. Chest radiograph appears relatively unchanged from prior. Still with multiple PVCs. On vent without sedation since 01/04/2021. FiO2 40% PEEP 5 ABG 7.46/49/129. Still with right arm twitching, more severe. Attempted to call Lance, son and DPOA, no answer, voicemail full, but last evening he did come in and request to move forward with trach and PEG referrals, does not want to discuss end-of-life care with me anymore Vitals/I&O Vitals/I&O: Vital Signs Date Time Temp Pulse Resp B/P (MAP) Pulse Ox O2 Delivery O2 Flow Rate FiO2 01/15/21 12:00 Mechanical Ventilator 01/15/21 12:00 99.2 80 14 182/99 (126) 100 99.2 I & O 01/14/21 01/14/21 01/15/21 15:00 23:00 07:00 Intake Total 110 ml 979.5 ml 646 ml Output Total 625 ml 825 ml 460 ml Balance -515 ml 154.5 ml 186 ml Physical Exam Physical Exam: GENERAL: Intubated, opens eyes transiently, does not follow any commands HEENT: Normocephalic, atraumatic. Tongue protruded, ETT /OGT + NECK: Supple though fullness due to body habitus. LUNGS: Decreased breath sounds. No wheezing. HEART: S1, S2. Distant heart sounds. ABDOMEN: Obese. Bowel sounds present. EXTREMITIES: Minimal edema. No cyanosis. NEUROLOGIC: Intubated,right upper extremity twitching Left IJ clean General: No acute distress Heart: Regular rate Lungs: Crackles Abdomen: Soft Extremities: Other (Trace edema) Labs Labs: Laboratory Tests Test 01/14/21 12:52 01/14/21 17:58 01/15/21 00:30 01/15/21 05:27 Glucose (Fingerstick) 85 mg/dL (70-99) 95 mg/dL (70-99) 107 mg/dL (70-99) 110 mg/dL (70-99) Test 01/15/21 07:40 O2 Saturation 99 % (92-99) Arterial Blood pH 7.45 (7.35-7.45) Arterial Blood pCO2 at Patient Temp 46 mmHg (35-46) Arterial Blood pO2 at Patient Temp 131 mmHg (65-108) Arterial Blood HCO3 31 mmol/L (21-28) Arterial Blood Base Excess 6 mmol/L (-3-3) FiO2 40 Assessment and Plan Assessmemt and Plan Problems Medical Problems: (1) Acute renal failure Status: Acute (2) Altered mental status Status: Acute (3) Aspiration pneumonia Status: Acute (4) Hyperkalemia Status: Acute (5) Respiratory failure Status: Acute (6) Sepsis Status: espiratory failure Status post CODE BLUE Severe anoxic brain injury Pneumonia Hyperkalemia Sepsis Obesity Protein malnutrition Hypertensive urgency Seizures CHF COPD Plan ICU monitoring Vent weaning if possible but unlikely Continue the IV Zosyn Continue Johnson to bedside drainage Her prognosis is extremely poor Surgery nephrology cardiology nephrology and neuro following For now trend labs Home meds Continue OG feeds DVT prophylaxis For tracheostomy on 01/22/2021 Continue Keppra Full code per family request despite poor prognosis CC time 33-minute Comment Review of Relevant I have reviewed the following items shady (where applicable) has been applied. Justifications for Admission Other Justification cardiac arrest KATHE MARIE III DO Jan 15, 2021 12:21
--- NOTE | 2021-01-15 16:15 | NUR ---
SS following up with discharge planning. SS reviewed pt chart and discussed with pt RN. Pt is currently on the vent at 40%. Not responsive. Full Code. Pt's son wants full aggressive care. Dr. Coleman consulted and tentative trach scheduled for 01/22/2021. SS will continue to follow for discharge planning.
[2021-01-15] MEDS: FAMOTIDINE 20 MG/2 ML VIAL IVP SCH (20:55)
[2021-01-15] MEDS: ATORVASTATIN CALCIUM 40 MG TABLET. PO SCH (20:55)
[2021-01-15] MEDS: hydrALAZINE 20 MG/ML VIAL. IVP PRN (23:52)
[2021-01-16] VITALS (24 sets, daily range): BP systolic 100–168; BP diastolic 46–107
[2021-01-16] MEDS: HEPARIN for SUB-Q USE 5,000 UNIT/ML VIAL. SQ SCH ×3 (05:49→21:25)
[2021-01-16] MEDS: INSULIN LISPRO 300 UNITS/3 ML VIAL. SQ SCH ×2 (05:56→18:00)
[2021-01-16 06:30] LABS: CALCIUM 8.8 mg/dL (8.5-10.1); CREATININE 1.3 mg/dL (0.6-1.0); GFR 50.2
--- NOTE | 2021-01-16 07:42 | PDOC ---
Infectious Disease Note Subjective Subjective Intubated , does not respond to any commands Now has constant twitching of right upper extremity Patient condition remains unchanged per discussion with RN Vital Sign Vital Signs Vital Signs Date Time Temp Pulse Resp B/P (MAP) Pulse Ox O2 Delivery O2 Flow Rate FiO2 01/16/21 06:00 77 18 168/68 (101) 100 Ventilator 01/16/21 04:00 98.4 98.4 Physical Exam PHYSICAL EXAM GENERAL: Intubated, opens eyes transiently, does not follow any commands HEENT: Normocephalic, atraumatic. Tongue protruded, ETT /OGT + NECK: Supple though fullness due to body habitus. LUNGS: Decreased breath sounds. No wheezing. HEART: S1, S2. Distant heart sounds. ABDOMEN: Obese. Bowel sounds present. EXTREMITIES: Minimal edema. No cyanosis. NEUROLOGIC: Intubated,right upper extremity twitching Left IJ clean Labs Lab Laboratory Tests Test 01/15/21 17:35 01/15/21 23:44 01/16/21 05:55 Glucose (Fingerstick) 110 mg/dL (70-99) 127 mg/dL (70-99) 144 mg/dL (70-99) Sodium Level 142 mmol/L (136-145) Potassium Level 4.0 mmol/L (3.5-5.1) Chloride Level 105 mmol/L (98-107) Carbon Dioxide Level 31 mmol/L (21-32) Anion Gap 6 (6-14) Blood Urea Nitrogen 17 mg/dL (7-20) Creatinine 1.3 mg/dL (0.6-1.0) Estimated GFR (Cockcroft-Gault) 50.2 Glucose Level 139 mg/dL (70-99) Calcium Level 8.8 mg/dL (8.5-10.1) Micro Microbiology 01/06/21 Blood Culture - Final, Complete NO GROWTH AFTER 5 DAYS 01/05/21 Gram Stain Evaluation - Final, Complete 01/05/21 Respiratory Culture - Final, Complete 01/05/21 Antimicrobic Susceptibility - Final, Complete 01/04/21 Urine Culture - Final, Complete Objective Assessment 1. Fever. Resolved 2. Leukocytosis and lactic acidosis. Proving 3. Acute hypoxic respiratory failure. Status post intubation 4. Suspected aspiration pneumonia. Sputum culture positive for mssa 5. Status post cardiopulmonary arrest. 6. Questionable seizures. Encephalopathy 7. Diabetes mellitus 2. 8. Morbid obesity. 9. Obstructive sleep apnea. 10. Coronary artery disease. 11. Chronic kidney disease 12. Hypernatremia and hyperkalemia. 13 Gram-positive bacteremia bacteremia 2 out of 4 bottles present on admission staph epidermidis Plan Plan of Care 1. off antibiotics 2. supportive care Follow-up repeat blood cultures 01/06 negative so far 3. Continue supportive care. 4. Critically ill. 5. Prognosis poor. need hospice Discussed with nursing staff JENNY CRUZ MD Jan 16, 2021 07:42
--- NOTE | 2021-01-16 08:39 | PDOC ---
PROGRESS NOTES Date of Service DATE: 01/16/21 TIME: 08:37 Assessment Problems Medical Problems: (1) Acute renal failure Status: Acute (2) Altered mental status Status: Acute (3) Aspiration pneumonia Status: Acute (4) Hyperkalemia Status: Acute (5) Respiratory failure Status: Acute (6) Sepsis Status: Acute Metabolic encephalopathy, only has basic brainstem reflexes PLEDS and burst-suppression on EEG Respiratory failure, aspiration pneumonia, possible sepsis Acute STEMI, coronary artery disease status post stenting, chronic obstructive pulmonary disease, asthma, congestive heart failure, morbid obesity, renal failure, hyperkalemia, severe protein malnutrition, hypertensive urgency, hyper lipidemia, type 2 diabetes, obstructive sleep apnea, restless leg syndrome, peripheral neuropathy Plan Son Lance wants trach and PEG, scheduled for next week, 01/22 Continue treating medical issues Aggressive treatment of the seizure activity is unlikely to affect outcome and would cloud the examination. Continue IV Depacon Overall prognosis is poor, but patient is not brain Subjective None Objective Vital Signs Date Time Temp Pulse Resp B/P (MAP) Pulse Ox O2 Delivery O2 Flow Rate FiO2 01/16/21 06:00 77 18 168/68 (101) 100 Ventilator 01/16/21 04:00 98.4 98.4 Intake and Output 01/16/21 07:00 Intake Total 1310.0 ml Output Total 1105 ml Balance 205.0 ml Intake IV Total 115.0 ml Tube Feeding 975 ml Other 220 ml Output Urine Total 1105 ml PHYSICAL EXAM Has been off sedation since 01/05, no response to pain Triggers ventilator Does have myoclonic movements of right hand Pupils unreactive EOMI. roving eye movements CN: no focal findings. Muscle tone: normal. Muscle strength: No response DTR: 1+ Plantar reflex: Silent Gait: not examined Sensory exam: Not cooperative. Cerebellar: Not cooperative Review of Relevant I have reviewed the following items shady (where applicable) has been applied. Labs Laboratory Tests Test 01/14/21 12:52 01/14/21 17:58 01/15/21 00:30 01/15/21 05:27 Glucose (Fingerstick) 85 mg/dL (70-99) 95 mg/dL (70-99) 107 mg/dL (70-99) 110 mg/dL (70-99) Test 01/15/21 07:40 01/15/21 17:35 01/15/21 23:44 01/16/21 05:55 O2 Saturation 99 % (92-99) Arterial Blood pH 7.45 (7.35-7.45) Arterial Blood pCO2 at Patient Temp 46 mmHg (35-46) Arterial Blood pO2 at Patient Temp 131 mmHg (65-108) Arterial Blood HCO3 31 mmol/L (21-28) Arterial Blood Base Excess 6 mmol/L (-3-3) FiO2 40 Glucose (Fingerstick) 110 mg/dL (70-99) 127 mg/dL (70-99) 144 mg/dL (70-99) Sodium Level 142 mmol/L (136-145) Potassium Level 4.0 mmol/L (3.5-5.1) Chloride Level 105 mmol/L (98-107) Carbon Dioxide Level 31 mmol/L (21-32) Anion Gap 6 (6-14) Blood Urea Nitrogen 17 mg/dL (7-20) Creatinine 1.3 mg/dL (0.6-1.0) Estimated GFR (Cockcroft-Gault) 50.2 Glucose Level 139 mg/dL (70-99) Calcium Level 8.8 mg/dL (8.5-10.1) Laboratory Tests Test 01/15/21 17:35 01/15/21 23:44 01/16/21 05:55 Glucose (Fingerstick) 110 mg/dL (70-99) 127 mg/dL (70-99) 144 mg/dL (70-99) Sodium Level 142 mmol/L (136-145) Potassium Level 4.0 mmol/L (3.5-5.1) Chloride Level 105 mmol/L (98-107) Carbon Dioxide Level 31 mmol/L (21-32) Anion Gap 6 (6-14) Blood Urea Nitrogen 17 mg/dL (7-20) Creatinine 1.3 mg/dL (0.6-1.0) Estimated GFR (Cockcroft-Gault) 50.2 Glucose Level 139 mg/dL (70-99) Calcium Level 8.8 mg/dL (8.5-10.1) Microbiology 01/06/21 Blood Culture - Final, Complete NO GROWTH AFTER 5 DAYS 01/05/21 Gram Stain Evaluation - Final, Complete 01/05/21 Respiratory Culture - Final, Complete 01/05/21 Antimicrobic Susceptibility - Final, Complete 01/04/21 Urine Culture - Final, Complete Medications Current Medications Amiodarone HCl 450 mg/Dextrose 259 ml @ 33 mls/hr 1X ONCE IV Last administered on 01/04/21at 11:40; Start 01/04/21 at 11:15; Stop 01/04/21 at 19:05; Status DC Midazolam HCl 100 ml @ 1 mls/hr 1X ONCE IV Last administered on 01/04/21at 11:39; Start 01/04/21 at 11:30; Stop 01/05/21 at 09:51; Status DC Sodium Chloride 1,000 ml @ 1,000 mls/hr 1X ONCE IV Last administered on 01/04/21at 12:13; Start 01/04/21 at 11:45; Stop 01/04/21 at 12:44; Status DC Sodium Bicarbonate (Sodium Bicarb Adult 8.4% Syr) 50 meq 1X ONCE IV Last administered on 01/04/21at 12:55; Start 01/04/21 at 12:00; Stop 01/04/21 at 12:01; Status DC Dextrose (Dextrose 50%-Water Syringe) 25 gm 1X ONCE IV Last administered on 01/04/21at 12:53; Start 01/04/21 at 12:00; Stop 01/04/21 at 12:01; Status DC Insulin Human Regular (HumuLIN R VIAL) 10 unit 1X ONCE IV Last administered on 01/04/21at 12:52; Start 01/04/21 at 12:00; Stop 01/04/21 at 12:01; Status DC Piperacillin Sod/ Tazobactam Sod 3.375 gm/Sodium Chloride 50 ml @ 100 mls/hr 1X ONCE IV Last administered on 01/04/21at 12:12; Start 01/04/21 at 12:00; Stop 01/04/21 at 12:29; Status DC Succinylcholine Chloride (Anectine) 100 mg 1X ONCE IV Last administered on 01/04/21at 11:03; Start 01/04/21 at 12:45; Stop 01/04/21 at 12:46; Status DC Etomidate (Amidate) 20 mg 1X ONCE IV Last administered on 01/04/21at 11:02; Start 01/04/21 at 12:45; Stop 01/04/21 at 12:46; Status DC Rocuronium [place] (Zemuron) 100 mg 1X ONCE IV ; Start 01/04/21 at 12:45; Stop 01/04/21 at 12:46; Status Cancel Midazolam HCl (Versed) 5 mg 1X ONCE IV Last administered on 01/04/21at 11:30; Start 01/04/21 at 12:45; Stop 01/04/21 at 12:46; Status DC Rocuronium [place] (Zemuron) 100 mg 1X ONCE IV Last administered on 01/04/21at 11:33; Start 01/04/21 at 12:45; Stop 01/04/21 at 12:46; Status DC Ondansetron HCl (Zofran) 4 mg PRN Q8HRS PRN IV NAUSEA/VOMITING; Start 01/04/21 at 13:00; Stop 01/05/21 at 09:48; Status DC Sodium Chloride 1,000 ml @ 100 mls/hr Q10H IV Last administered on 01/05/21at 09:41; Start 01/04/21 at 13:00; Stop 01/05/21 at 12:59; Status DC Ondansetron HCl (Zofran) 4 mg PRN Q6HRS PRN IVP NAUSEA/VOMITING; Start 01/04/21 at 14:00 Famotidine (Pepcid Vial) 20 mg QHS IVP Last administered on 01/15/21at 20:55; Start 01/04/21 at 21:00 Heparin Sodium (Porcine) (Heparin Sodium) 5,000 unit Q8HRS SQ Last administered on 01/16/21at 05:49; Start 01/04/21 at 14:00 Sodium Chloride (Normal Saline Flush) 3 ml QSHIFT PRN IV AFTER MEDS AND BLOOD DRAWS; Start 01/04/21 at 14:00 Bisacodyl (Dulcolax Supp) 10 mg PRN DAILY PRN SD CONSTIPATION; Start 01/04/21 at 14:00 Piperacillin Sod/ Tazobactam Sod (Zosyn Per Pharmacy) 1 each PRN DAILY PRN MC SEE COMMENTS; Start 01/04/21 at 14:00; Stop 01/04/21 at 17:48; Status DC Piperacillin Sod/ Tazobactam Sod 2.25 gm/Sodium Chloride 50 ml @ 100 mls/hr Q6HRS IV ; Start 01/04/21 at 18:00; Stop 01/04/21 at 17:49; Status DC Dextrose (Dextrose 50%-Water Syringe) 25 gm 1X ONCE IV Last administered on 01/04/21at 16:21; Start 01/04/21 at 16:15; Stop 01/04/21 at 16:16; Status DC Meropenem 500 mg/ Sodium Chloride 50 ml @ 100 mls/hr Q8HRS IV ; Start 01/04/21 at 18:00; Status Cancel Piperacillin Sod/ Tazobactam Sod 2.25 gm/Sodium Chloride 50 ml @ 100 mls/hr Q8HRS IV Last administered on 01/08/21at 06:01; Start 01/04/21 at 22:00; Stop 01/08/21 at 07:50; Status DC Linezolid/Dextrose 300 ml @ 300 mls/hr Q12HR IV Last administered on 01/07/21at 21:23; Start 01/04/21 at 21:00; Stop 01/08/21 at 10:41; Status DC Valproic Acid 500 mg/Dextrose 55 ml @ 55 mls/hr Q12HR IV Last administered on 01/05/21at 09:40; Start 01/05/21 at 09:00; Stop 01/05/21 at 17:28; Status DC Valproic Acid 1000 mg/Dextrose 60 ml @ 60 mls/hr 1X ONCE IV Last administered on 01/04/21at 19:30; Start 01/04/21 at 19:30; Stop 01/04/21 at 20:29; Status DC Lorazepam (Ativan Inj) 2 mg PRN Q2HRS PRN IVP ANXIETY / AGITATION Last administered on 01/05/21at 23:30; Start 01/04/21 at 19:30; Stop 01/08/21 at 08:16; Status DC Hydralazine HCl (Apresoline Inj) 10 mg PRN Q6HRS PRN IVP ELEVATED BP, SEE COMMENTS Last administered on 01/15/21at 23:52; Start 01/04/21 at 19:45 Amiodarone HCl 450 mg/Dextrose 259 ml @ 33 mls/hr CONT PRN IV SEE I/O RECORD Last administered on 01/05/21at 11:50; Start 01/04/21 at 20:15; Stop 01/05/21 at 11:50; Status DC Midazolam HCl 100 ml @ 1 mls/hr CONT PRN IV SEE I/O RECORD Last administered on 01/05/21at 02:00; Start 01/05/21 at 02:00; Stop 01/08/21 at 08:16; Status DC Daptomycin 600 mg/ Sodium Chloride 50 ml @ 100 mls/hr Q48H IV Last administered on 01/07/21at 15:40; Start 01/05/21 at 16:00; Stop 01/08/21 at 07:52; Status DC Scopolamine (Transderm-Scop) 1 patch Q3DAYS TD Last administered on 01/08/21at 08:08; Start 01/05/21 at 17:00; Stop 01/08/21 at 08:16; Status DC Valproic Acid 750 mg/Dextrose 57.5 ml @ 57.5 mls/hr Q12HR IV Last administered on 01/15/21at 20:54; Start 01/05/21 at 21:00 Insulin Human Lispro (HumaLOG) 0-5 UNITS TIDWMEALS SQ Last administered on 01/05/21at 18:27; Start 01/05/21 at 18:30; Stop 01/06/21 at 08:42; Status DC Dextrose (Dextrose 50%-Water Syringe) 12.5 gm PRN Q15MIN PRN IV SEE COMMENTS; Start 01/05/21 at 18:15 Amiodarone HCl 450 mg/Dextrose 259 ml @ 0 mls/hr 1X ONCE IV Last administered on 01/06/21at 02:00; Start 01/06/21 at 02:00; Stop 01/06/21 at 02:01; Status DC Insulin Human Lispro (HumaLOG) 0-5 UNITS Q6HRS SQ ; Start 01/06/21 at 12:00 Amiodarone HCl 450 mg/Dextrose 259 ml @ 0 mls/hr 1X ONCE IV Last administered on 01/06/21at 17:05; Start 01/06/21 at 17:00; Stop 01/06/21 at 17:01; Status DC Amiodarone HCl (Cordarone) 400 mg DAILY PO ; Start 01/07/21 at 14:00; Stop 01/07/21 at 13:15; Status DC Multi-Ingred Cream/Lotion/Oil/ Oint (Artificial Tears Eye Ointment) 1 chio PRN Q1HR PRN OU DRY EYE Last administered on 01/07/21at 14:14; Start 01/07/21 at 13:00 Aspirin (Blessing Aspirin) 325 mg DAILY PO Last administered on 01/08/21at 08:12; Start 01/08/21 at 09:00; Stop 01/09/21 at 09:16; Status DC Clopidogrel Bisulfate (Plavix) 75 mg DAILYWBKFT PO Last administered on 01/15/21at 08:22; Start 01/08/21 at 08:00 Hydralazine HCl (Apresoline) 25 mg BID PO Last administered on 01/15/21at 20:54; Start 01/07/21 at 21:00 Metoprolol Succinate (Toprol Xl) 25 mg DAILY PO ; Start 01/08/21 at 09:00; Stop 01/08/21 at 07:44; Status DC Isosorbide Mononitrate (Imdur) 120 mg DAILY PO ; Start 01/08/21 at 09:00; Stop 01/08/21 at 08:16; Status DC Losartan Potassium (Cozaar) 100 mg DAILY PO Last administered on 01/15/21at 08:21; Start 01/08/21 at 09:00 Atorvastatin Calcium (Lipitor) 80 mg QHS PO Last administered on 01/15/21at 20:55; Start 01/07/21 at 21:00 Epinephrine HCl (EPINEPHrine SYRINGE) 2 mg STK-MED ONCE .ROUTE ; Start 01/04/21 at 11:00; Stop 01/07/21 at 17:12; Status DC Amiodarone HCl (Cordarone) 300 mg STK-MED ONCE .ROUTE ; Start 01/04/21 at 11:00; Stop 01/07/21 at 17:12; Status DC Metoprolol Tartrate (Lopressor) 12.5 mg BID PO Last administered on 01/15/21at 20:55; Start 01/08/21 at 09:00 Piperacillin Sod/ Tazobactam Sod 3.375 gm/Sodium Chloride 50 ml @ 100 mls/hr Q6HRS IV Last administered on 01/15/21at 05:29; Start 01/08/21 at 12:00; Stop 01/15/21 at 07:56; Status DC Daptomycin 600 mg/ Sodium Chloride 50 ml @ 100 mls/hr Q24H IV Last administered on 01/11/21at 15:56; Start 01/08/21 at 16:00; Stop 01/12/21 at 09:34; Status DC Isosorbide Mononitrate (Ismo) 20 mg [id number] PO Last administered on 01/15/21at 14:07; Start 01/08/21 at 09:00 Aspirin (Aspirin Chewable) 81 mg DAILYWBKFT PO Last administered on 01/15/21at 08:22; Start 01/08/21 at 08:30 Glycopyrrolate (Robinul) 1 mg PRN DAILY PRN IV Secretions Last administered on 01/13/21at 09:13; Start 01/08/21 at 08:45 Potassium Chloride/Water 100 ml @ 100 mls/hr Q1H IV Last administered on 01/08/21at 13:37; Start 01/08/21 at 12:00; Stop 01/08/21 at 13:59; Status DC Potassium Bicarbonate (Potassium Effervescent Tablet) 40 meq 1X ONCE PEG Last administered on 01/09/21at 11:02; Start 01/09/21 at 09:30; Stop 01/09/21 at 09:31; Status DC Potassium Bicarbonate (Potassium Effervescent Tablet) 40 meq 1X ONCE PO Last administered on 01/10/21at 07:19; Start 01/10/21 at 08:00; Stop 01/10/21 at 08:01; Status DC Furosemide (Lasix) 40 mg 1X ONCE IVP Last administered on 01/10/21at 17:48; Start 01/10/21 at 17:45; Stop 01/10/21 at 17:46; Status DC Potassium Bicarbonate (Potassium Effervescent Tablet) 40 meq 1X ONCE PEG Last administered on 01/10/21at 19:15; Start 01/10/21 at 19:00; Stop 01/10/21 at 19:01; Status DC Active Scripts Active Promethazine Hcl 12.5 Mg Tablet 12.5 Mg PO PRN Q6HRS PRN 30 Days Metoprolol Succinate ( Xl ) (Metoprolol Succinate) 25 Mg Tab.er.24h 25 Mg PO DAILY 30 Days Pantoprazole Sodium (Pantoprazole Sodium) 40 Mg Tablet.dr 40 Mg PO BIDAC 30 Days Clopidogrel (Clopidogrel Bisulfate) 75 Mg Tablet 75 Mg PO DAILYWBKFT 75 Days Reported Voltaren (Diclofenac Sodium) 100 Gm Gel..gram. 1 Gm TP QID 30 Days apply to affected area(s) Nystatin 15 Gm Powder 1 [place] TP BID 7 Days apply to affected area(s) Ondansetron Odt (Ondansetron) 4 Mg Tab.rapdis 1 Tab PO PRN Q8HRS PRN Reglan (Metoclopramide Hcl) 10 Mg Tablet 1 Tab PO QID 30 Days before food and bedtime Losartan Potassium 100 Mg Tablet 100 Mg PO DAILY Aspirin 325 Mg Tablet 1 Tab PO DAILY Metformin Hcl 500 Mg Tablet 500 Mg PO BIDWMEALS Bumetanide 1 Mg Tablet 1 Mg PO BID Insulin Aspart 100 Unit/1 Ml Vial 60 Unit SQ TIDAC novolg flex pen Isosorbide Mononitrate Er (Isosorbide Mononitrate) 120 Mg Tab.er.24h 120 Mg PO DAILY NITROGLYCERIN SubLingual (Nitroglycerin) 0.4 Mg Tab.subl 0.4 Mg SL PRN Q5MIN PRN Albuterol Sulfate Neb Soln (Albuterol Sulfate) 2.5 Mg/3 Ml Vial.neb 2.5 Mg NEB Q4-6HRS PRN Levemir Flextouch (Insulin Detemir) 100 Unit/1 Ml Insuln.pen 60 Unit SQ HS Hydralazine Hcl 25 Mg Tablet 25 Mg PO BID Fluticasone Propionate Nasal [place] (Fluticasone Propionate) 16 Gm [place].susp 2 [place] NS DAILY Zolpidem Tartrate 5 Mg Tablet 5 Mg PO PRN QHS PRN Amlodipine Besylate 10 Mg Tablet 10 Mg PO DAILY Gabapentin 600 Mg Tablet 600 Mg PO BID Potassium Chloride (Potassium Chloride) 20 Meq Tablet.er 20 Meq PO BID Proair Respiclick (Albuterol Sulfate) 90 Mcg Aer.pow.ba 2 Puff IH PRN Q4-6HRS PRN Cyclobenzaprine Hcl 10 Mg Tablet 1 Tab PO BID PRN Requip (Ropinirole Hcl) 1 Mg Tablet 1 Tab PO QHS Crestor (Rosuvastatin Calcium) 20 Mg Tablet 20 Mg PO HS LAST DOSE: 10/01/15 BEDTIME NEXT DOSE: 10/02/15 BEDTIME Oxybutynin Chloride 5 Mg Tablet 1 Tab PO DAILY LAST DOSE: 10/02/15 AM NEXT DOSE: 10/03/15 AM Vitals/I & O Vital Sign - Last 24 Hours 01/15/21 01/15/21 01/15/21 01/15/21 09:00 09:22 10:00 11:00 Pulse 61 58 60 Resp 14 14 14 B/P (MAP) 126/62 (83) 126/57 (80) 124/51 (75) Pulse Ox 100 100 100 100 O2 Delivery Ventilator Ventilator Ventilator Ventilator 01/15/21 01/15/21 01/15/21 01/15/21 11:25 12:00 12:00 13:00 Temp 99.2 99.2 Pulse 80 58 Resp 14 14 B/P (MAP) 182/99 (126) 134/60 (84) Pulse Ox 100 100 100 O2 Delivery Ventilator Ventilator Mechanical Ventilator Ventilator 01/15/21 01/15/21 01/15/21 01/15/21 13:18 14:00 14:07 15:00 Pulse 82 73 76 Resp 23 22 B/P (MAP) 182/65 (104) 182/65 167/74 (105) Pulse Ox 100 100 100 O2 Delivery Ventilator Ventilator Ventilator 01/15/21 01/15/21 01/15/21 01/15/21 15:35 16:00 16:00 17:00 Temp 99.2 99.2 Pulse 65 66 Resp 22 14 B/P (MAP) 150/72 (98) 159/59 (92) Pulse Ox 100 100 100 O2 Delivery Ventilator Ventilator Mechanical Ventilator Ventilator 01/15/21 01/15/21 01/15/21 01/15/21 17:35 18:00 19:00 19:25 Pulse 70 68 Resp 14 16 B/P (MAP) 159/84 (109) 168/74 (105) Pulse Ox 100 100 100 100 O2 Delivery Ventilator Ventilator Ventilator Ventilator 01/15/21 01/15/21 01/15/21 01/15/21 20:00 20:00 20:54 20:55 Pulse 66 66 66 Resp 14 B/P (MAP) 140/72 (94) 140/72 140/72 Pulse Ox 100 O2 Delivery Mechanical Ventilator Ventilator 01/15/21 01/15/21 01/15/21 01/15/21 21:00 22:00 22:45 23:00 Temp 98.9 98.9 Pulse 71 66 71 Resp 14 16 14 B/P (MAP) 141/75 (97) 140/88 (105) 178/90 (119) Pulse Ox 100 100 100 100 O2 Delivery Ventilator Ventilator Ventilator Ventilator 01/15/21 01/15/21 01/15/21 01/16/21 23:52 23:59 23:59 01:00 Temp 99.0 99.0 Pulse 71 71 72 Resp 18 16 B/P (MAP) 177/98 168/80 (109) 147/78 (101) Pulse Ox 98 100 O2 Delivery Mechanical Ventilator Ventilator Ventilator 01/16/21 01/16/21 01/16/21 01/16/21 01:13 02:00 03:00 03:00 Pulse 70 73 Resp 16 17 B/P (MAP) 146/87 (106) 164/62 (96) Pulse Ox 99 100 97 100 O2 Delivery Ventilator Ventilator Ventilator Ventilator 01/16/21 01/16/21 01/16/21 01/16/21 04:00 04:00 04:55 05:00 Temp 98.4 98.4 Pulse 73 72 Resp 17 17 B/P (MAP) 164/62 (96) 154/72 (99) Pulse Ox 100 97 99 O2 Delivery Ventilator Mechanical Ventilator Ventilator Ventilator 01/16/21 06:00 Pulse 77 Resp 18 B/P (MAP) 168/68 (101) Pulse Ox 100 O2 Delivery Ventilator Intake and Output 01/15/21 01/15/21 01/16/21 15:00 23:00 07:00 Intake Total 576.5 ml 733.5 ml Output Total 440 ml 380 ml 285 ml Balance -440 ml 196.5 ml 448.5 ml Justicifation of Admission Dx: Justifications for Admission: Justification of Admission Dx: Yes SWATHI BOOTH MD Jan 16, 2021 08:39
--- NOTE | 2021-01-16 08:45 | PDOC ---
[employer] PROGRESS NOTE Date of Service DOS: DATE: 01/16/21 TIME: 08:44 Chief Complaint Chief Complaint Respiratory failure Status post CODE BLUE Severe anoxic brain injury Pneumonia Hyperkalemia Sepsis Obesity Protein malnutrition Hypertensive urgency Seizures CHF COPD History of Present Illness History of Present Illness 01/16/2021 Patient seen and examined in the ICU She remains on the ventilator AC/12/450/40 with 5 of PEEP Has Johnson bedside drainage Has SCDs in place OG running at 45 cc an hour Has Depakote IV hanging Discussed with RN Chart reviewed She remains critically ill 01/15/2021 Patient seen and examined in the ICU Discussed with RN Chart reviewed Discussed with case management The patient remains on the ventilator AC/12/450/40 percent with 5 of PEEP Scheduled to get tracheostomy on 01/22/2021 OG running at 35 cc an hour She has SCDs in place She has a Johnson to bedside drainage On Depakote drip Her right arm is twitching She remains critically ill with a poor prognosis but the family wants everything still done 01/14/2021 Patient seen and examined in the ICU She remains mechanically ventilated and is unresponsive despite no sedation AC/12/450/40 percent with 5 of PEEP Has IV Zosyn hanging Has Johnson to bedside drainage Discussed with RN Discussed with case management Chart reviewed She remains critically ill Ms Castro is a 60 year old female w/ PMHx Asthma, CAD s/p stenting x6, CHF, C OPD, Diabetes-Type II, High Cholesterol, Hypertension, neuropathy, morbid obesity, RLS, insomnia who presented to ER after she was brought here by EMS from home after she was found unresponsive in her bed by her family. Patient was last known normal was 9 AM on 01/03/2021. family tried to call her but could not get a hold of her so they show up to her house, found her unresponsive in her bed. Per family, patient had a CPAP machine on but the mask slid off her face, there was lot of mucus and material around her face and on her neck area. Patient was responsive to painful stimuli but was very confused, did not follow command. EMS were called, they found her in respiratory distress, GCS of 7-8, they bagged her and brought her here. Upon arrival to room, patient was unresponsive to verbal, severe respiratory distress, need emergent intubation. During the difficult intubation patient became bradycardic and CODE BLUE was initiated. Patient subsequently went into ventricular fibrillation, underwent shock therapy and was initiated on intravenous amiodarone infusion and admitted to ICU. She has been admitted to [facility] x2 for intractable nausea and vomiting and PMC once has had this as well as intense pruritis for 6 months. Was seen and treated for same in November, underwent cardiac cath and GI consultation at the time, was discharged home. Her family stated that patient was seen here 2 days prior for epigastric abdominal pain. It was recommended that she need to stay in the hospital however patient did not want to stay in the hospital so she went home. AMA. 01/05: No acute events overnight. Patient seen and examined bedside. Patient remains intubated. Without sedation. Vent settings at 18/450/40/5. Patient is not responding to painful stimuli at this time. There is a lot of secretions. Currently not on any vasopressors 01/06: No acute events overnight. Patient withdraws to pain. Still intubated with vent settings at 16/450/40/5. Not on any sedation at this time. 01/07: No overnight events. Afebrile. On vent with no sedation for 48 hours FiO2 40% PEEP of 5. Not requiring vasopressors. Not making meaningful eye contact or meaningful movement. Minimal reflexes. Breathing over the vent. Discussed with son, Lance overall poor prognosis given what is likely anoxic encephalopathy. He wants to discuss with his aunt Liss and sister Camille future goals of care. 01/08: No events. Afebrile. Still with no meaningful activity no sedation on vent FiO2 40% PEEP of 5, ABG 7.45/46/142. No BM. Adequate UOP. No residuals on feeds. EEG interpreted by neurology as abnormal because of a severe diffuse disturbance of cerebral activity, consistent with a very poor prognosis from anoxic encephalopathy. 01/09: Overnight ventilated no significant activity he still off sedation. K3.2. Vent FiO2 40% PEEP of 5. Chest radiograph unchanged from prior. Right hand with new twitching, concerning for seizure activity, d/w neurology. D/w sons goals of care and grim neurologic prognosis. 01/10: Afebrile, K3.1. ABG 7.4 7/40/129 on 40% FiO2. CXR stable. Still with right hand tremor. Long d/w son, Lance, and his significant other. 01/11: No overnight events. Chest radiograph stable, ABG on 40% FiO2 and PEEP 5 was 7.48/46/137. Heart rate slowing down and blood pressure coming up a bit. Glucose stable. No sedating meds for over 96 hours. No meaningful interaction. Babinski reflexes demonstrated to family. 01/12: Afebrile overnight. Creatinine 1.3, Hb 9.2. Having more PVCs on monitor today. On 40% FiO2 PEEP of 5. Blood pressure little elevated requiring additional IV dose of hydralazine. Still with right arm twitching and irregular mouth movement. No meaningful neurologic interaction. Afebrile overnight. Chest radiograph appears relatively unchanged from prior. Still with multiple PVCs. On vent without sedation since 01/04/2021. FiO2 40% PEEP 5 ABG 7.46/49/129. Still with right arm twitching, more severe. Attempted to call Lance, son and DPOA, no answer, voicemail full, but last evening he did come in and request to move forward with trach and PEG referrals, does not want to discuss end-of-life care with me anymore Vitals/I&O Vitals/I&O: Vital Signs Date Time Temp Pulse Resp B/P (MAP) Pulse Ox O2 Delivery O2 Flow Rate FiO2 01/16/21 06:00 77 18 168/68 (101) 100 Ventilator 01/16/21 04:00 98.4 98.4 I & O 01/15/21 01/15/21 01/16/21 15:00 23:00 07:00 Intake Total 576.5 ml 733.5 ml Output Total 440 ml 380 ml 285 ml Balance -440 ml 196.5 ml 448.5 ml Physical Exam Physical Exam: GENERAL: Intubated, opens eyes transiently, does not follow any commands HEENT: Normocephalic, atraumatic. Tongue protruded, ETT /OGT + NECK: Supple though fullness due to body habitus. LUNGS: Decreased breath sounds. No wheezing. HEART: S1, S2. Distant heart sounds. ABDOMEN: Obese. Bowel sounds present. EXTREMITIES: Minimal edema. No cyanosis. NEUROLOGIC: Intubated,right upper extremity twitching Left IJ clean General: No acute distress Heart: Regular rate Lungs: Crackles Abdomen: Soft Extremities: Other (Trace edema) Labs Labs: Laboratory Tests Test 01/15/21 17:35 6/29/21 23:44 01/16/21 05:55 Glucose (Fingerstick) 110 mg/dL (70-99) 127 mg/dL (70-99) 144 mg/dL (70-99) Sodium Level 142 mmol/L (136-145) Potassium Level 4.0 mmol/L (3.5-5.1) Chloride Level 105 mmol/L (98-107) Carbon Dioxide Level 31 mmol/L (21-32) Anion Gap 6 (6-14) Blood Urea Nitrogen 17 mg/dL (7-20) Creatinine 1.3 mg/dL (0.6-1.0) Estimated GFR (Cockcroft-Gault) 50.2 Glucose Level 139 mg/dL (70-99) Calcium Level 8.8 mg/dL (8.5-10.1) Assessment and Plan Assessmemt and Plan Problems Medical Problems: (1) Acute renal failure Status: Acute (2) Altered mental status Status: Acute (3) Aspiration pneumonia Status: Acute (4) Hyperkalemia Status: Acute (5) Respiratory failure Status: Acute (6) Sepsis Status: Acute Respiratory failure Status post CODE BLUE Severe anoxic brain injury Pneumonia Hyperkalemia Sepsis Obesity Protein malnutrition Hypertensive urgency Seizures CHF COPD Plan ICU monitoring Vent weaning if possible but unlikely Continue the IV Zosyn Continue Johnson to bedside drainage Her prognosis is extremely poor Surgery nephrology cardiology nephrology and neuro following For now trend labs Home meds Continue OG feeds DVT prophylaxis For tracheostomy on 01/22/2021 Continue Keppra Full code per family request despite poor prognosis CC time 31-minutes Comment Review of Relevant I have reviewed the following items shady (where applicable) has been applied. Justifications for Admission Other Justification cardiac arrest KATHE MARIE III DO Jan 16, 2021 08:45
[2021-01-16 08:59] LABS: BASE EXCESS ABG 7 mmol/L (-3-3); HCO3 ABG 32 mmol/L (21-28); PCO2 ABG 45 mmHg (35-46); PO2 ABG 129 mmHg (65-108); SAT O2 ABG 99 % (92-99)
[2021-01-16 09:32] LABS: FIO2 ABG 40
--- NOTE | 2021-01-16 09:47 | PDOC ---
PULMONARY PROGRESS NOTES DATE: 01/16/21 TIME: 09:46 Subjective Pt. remains on vent support AC mode no new events Vitals Vital Signs Date Time Temp Pulse Resp B/P (MAP) Pulse Ox O2 Delivery O2 Flow Rate FiO2 01/16/21 08:42 100 Ventilator 01/16/21 06:00 77 18 168/68 (101) 01/16/21 04:00 98.4 98.4 Comments unable to obtain 2/2 clinical state HEENT: Other (nc at perrl nose clear orally intubated neck no lad no thyromegaly ) Lungs: Crackles Cardiovascular: S1, S2 Abdomen: Soft, Non-tender, Other (no mass obese) Extremities: Other (edema) Skin: Warm Labs Laboratory Tests Test 01/14/21 12:52 01/14/21 17:58 01/15/21 00:30 01/15/21 05:27 Glucose (Fingerstick) 85 mg/dL (70-99) 95 mg/dL (70-99) 107 mg/dL (70-99) 110 mg/dL (70-99) Test 01/15/21 07:40 01/15/21 17:35 01/15/21 23:44 01/16/21 05:55 O2 Saturation 99 % (92-99) Arterial Blood pH 7.45 (7.35-7.45) Arterial Blood pCO2 at Patient Temp 46 mmHg (35-46) Arterial Blood pO2 at Patient Temp 131 mmHg (65-108) Arterial Blood HCO3 31 mmol/L (21-28) Arterial Blood Base Excess 6 mmol/L (-3-3) FiO2 40 Glucose (Fingerstick) 110 mg/dL (70-99) 127 mg/dL (70-99) 144 mg/dL (70-99) Sodium Level 142 mmol/L (136-145) Potassium Level 4.0 mmol/L (3.5-5.1) Chloride Level 105 mmol/L (98-107) Carbon Dioxide Level 31 mmol/L (21-32) Anion Gap 6 (6-14) Blood Urea Nitrogen 17 mg/dL (7-20) Creatinine 1.3 mg/dL (0.6-1.0) Estimated GFR (Cockcroft-Gault) 50.2 Glucose Level 139 mg/dL (70-99) Calcium Level 8.8 mg/dL (8.5-10.1) Test 01/16/21 08:00 O2 Saturation 99 % (92-99) Arterial Blood pH 7.47 (7.35-7.45) Arterial Blood pCO2 at Patient Temp 45 mmHg (35-46) Arterial Blood pO2 at Patient Temp 129 mmHg (65-108) Arterial Blood HCO3 32 mmol/L (21-28) Arterial Blood Base Excess 7 mmol/L (-3-3) FiO2 40 Laboratory Tests Test 01/15/21 17:35 01/15/21 23:44 01/16/21 05:55 01/16/21 08:00 Glucose (Fingerstick) 110 mg/dL (70-99) 127 mg/dL (70-99) 144 mg/dL (70-99) Sodium Level 142 mmol/L (136-145) Potassium Level 4.0 mmol/L (3.5-5.1) Chloride Level 105 mmol/L (98-107) Carbon Dioxide Level 31 mmol/L (21-32) Anion Gap 6 (6-14) Blood Urea Nitrogen 17 mg/dL (7-20) Creatinine 1.3 mg/dL (0.6-1.0) Estimated GFR (Cockcroft-Gault) 50.2 Glucose Level 139 mg/dL (70-99) Calcium Level 8.8 mg/dL (8.5-10.1) O2 Saturation 99 % (92-99) Arterial Blood pH 7.47 (7.35-7.45) Arterial Blood pCO2 at Patient Temp 45 mmHg (35-46) Arterial Blood pO2 at Patient Temp 129 mmHg (65-108) Arterial Blood HCO3 32 mmol/L (21-28) Arterial Blood Base Excess 7 mmol/L (-3-3) FiO2 40 Medications Active Scripts Medications Dose Route/Sig Max Daily Dose Days Date Category Dose Instructions Voltaren (Diclofenac Sodium) 100 Gm Gel..gram. 1 Gm TP QID 30 12/10/20 Reported apply to affected area(s) Oxycodone Hcl 5 Mg Capsule 5 Mg PO PRN Q6HRS PRN 12/08/20 Reported Nystatin 15 Gm Powder 1 [place] TP BID 7 12/08/20 Reported apply to affected area(s) Ondansetron Odt (Ondansetron) 4 Mg Tab.rapdis 1 Tab PO PRN Q8HRS PRN 11/05/20 Reported Reglan (Metoclopramide Hcl) 10 Mg Tablet 1 Tab PO QID 30 11/05/20 Reported before food and bedtime Pantoprazole Sodium (Pantoprazole Sodium) 40 Mg Tablet.dr 40 Mg PO BIDAC 30 06/21/20 Rx Losartan Potassium 100 Mg Tablet 100 Mg PO DAILY 05/03/20 Reported Aspirin 325 Mg Tablet 1 Tab PO DAILY 05/03/20 Reported Metformin Hcl 500 Mg Tablet 500 Mg PO BIDWMEALS 05/03/20 Reported Bumetanide 1 Mg Tablet 1 Mg PO BID 04/02/20 Reported Insulin Aspart 100 Unit/1 Ml Vial 60 Unit SQ TIDAC 04/02/20 Reported novolg flex pen Isosorbide Mononitrate Er (Isosorbide Mononitrate) 120 Mg Tab.er.24h 120 Mg PO DAILY 04/02/20 Reported NITROGLYCERIN SubLingual (Nitroglycerin) 0.4 Mg Tab.subl 0.4 Mg SL PRN Q5MIN PRN 04/02/20 Reported Albuterol Sulfate Neb Soln (Albuterol Sulfate) 2.5 Mg/3 Ml Vial.neb 2.5 Mg NEB Q4-6HRS PRN 04/02/20 Reported Levemir Flextouch (Insulin Detemir) 100 Unit/1 Ml Insuln.pen 60 Unit SQ HS 04/02/20 Reported Hydralazine Hcl 25 Mg Tablet 25 Mg PO BID 04/02/20 Reported Fluticasone Propionate Nasal [place] (Fluticasone Propionate) 16 Gm [place].susp 2 [place] NS DAILY 06/18/19 Reported Zolpidem Tartrate 5 Mg Tablet 5 Mg PO PRN QHS PRN 06/18/19 Reported Amlodipine Besylate 10 Mg Tablet 10 Mg PO DAILY 06/18/19 Reported Gabapentin 600 Mg Tablet 600 Mg PO BID 06/18/19 Reported Potassium Chloride (Potassium Chloride) 20 Meq Tablet.er 20 Meq PO BID 06/18/19 Reported Clopidogrel (Clopidogrel Bisulfate) 75 Mg Tablet 75 Mg PO DAILYWBKFT 75 11/10/17 Rx Proair Respiclick (Albuterol Sulfate) 90 Mcg Aer.pow.ba 2 Puff IH PRN Q4-6HRS PRN 09/08/16 Reported Cyclobenzaprine Hcl 10 Mg Tablet 1 Tab PO BID PRN 2/20/17 Reported Requip (Ropinirole Hcl) 1 Mg Tablet 1 Tab PO QHS 09/08/16 Reported Crestor (Rosuvastatin Calcium) 20 Mg Tablet 20 Mg PO HS 10/02/15 Reported LAST DOSE: 10/01/15 BEDTIME NEXT DOSE: 10/02/15 BEDTIME Oxybutynin Chloride 5 Mg Tablet 1 Tab PO DAILY 10/02/15 Reported LAST DOSE: 10/02/15 AM NEXT DOSE: 10/03/15 AM Comments CXR 01/10/21 IMPRESSION: Resolution of left pleural effusion. Unchanged bilateral opacities. CXR 01/07 IMPRESSION: 1. Diffuse interstitial prominence may be seen with interstitial pulmonary edema or atypical infectious/inflammatory process. 2. Support lines and tubes as above. 3. Mild cardiomegaly. Impression . 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 Echo 12/2019 with LVEF 45%, improved on cath on 12/07 Coronary artery disease with recent -- cath 12/07 showed patent long stented proximal to distal LAD. No lesions needing intervention were noted. Echo with LVEF 55 to 60%. Type 2 diabetes. Chronic obstructive pulmonary disease. Morbid obesity. Hypertension. Obstructive sleep apnea. MIRIAM cr trending down Plan . UPDATED 01/16/21 No clinical change Continue current vent support in AC mode -- Follow ID recs--now off ABX Follow surgery recs-- Trach planned Follow GI recs- planned for PEG Follow cardiology recs--no further work at this time Follow Nephrology recs--depakote, seizure precautions DVT/GI PPX-- sub q heparin D/W RN and RT FULL CODE UPDATED 01/15/21 Continue current vent support in AC mode --12/450/40% and PEEP of 5 Follow ID recs--now off ABX Follow surgery recs-- recommends comfort measures, considering trach 01/22/21 Follow GI recs- planned for PEG this week Follow cardiology recs--no further work at this time Follow Nephrology recs--depakote, seizure precautions DVT/GI PPX-- sub q heparin D/W RN and RT FULL CODE UPDATED 01/14/21 Continue current vent support in AC mode --12/450/40% and PEEP of 5 Follow ID recs-- ABX---Zoysn-- BC NGTD Follow surgery recs-- planned for Trach this week Follow GI recs- planned for PEG this week Follow cardiology recs--no further work at this time Follow Nephrology recs-- DVT/GI PPX-- D/W RN and RT FULL CODE UPDATED 01/13/21 Continue current vent support A/C 40% and PEEP of 5 ABG/CXR reviewed Follow ID recs-- ABX---Zoysn Consult surgery for Trach Consult GI for PEG placement Follow cardiology recs-- Follow Nephrology recs-- monitor renal function Follow neurology recs--no plans for further testing at this time Nutritional Support DVT/GI PPX-- D/W RN and RT FULL CODE UPDATED 01/12/21 Continue current vent support A/C Follow ID recs-- ABX for aspiration PNA, Follow Cultures,Sputum culture positive for staph aureus-- 01/06 BC NGTD Consult surgery for possible PEG and Trach next week Follow cardiology recs-- Follow Nephrology recs Follow neurology recs--no plans for further testing at this time Nutritional Support DVT/GI PPX-- Sub Q heparin-- on hold for bloody secretion from ET tube D/W RN and RT D/W Family, poor prognosis, pt. remains a FULL CODE UPDATED 01/11/21 Continue current vent support A/C 16/450/5/40% ABG/CXR-- reviewed -- reduce Fi02 to 35% Follow ID recs-- ABX for aspiration PNA, Follow Cultures,Sputum culture positive for staph aureus-- 01/06 BC NGTD Follow cardiology recs-- Follow Nephrology recs--worsening renal function today Follow neurology recs--no plans for further testing at this time Nutritional Support DVT/GI PPX-- Sub Q heparin D/W RN and RT D/W Family, poor prognosis, pt. remains a FULL CODE UPDATED 01/10/21 Continue current vent support 40% and PEEP of 5 ABG/CXR-- reviewed -- will give X1 dose of lasix today Follow ID recs-- ABX for aspiration PNA, Follow Cultures,Sputum culture positive for staph aureus-- BC NGTD Follow cardiology recs-- Follow Nephrology recs Follow neurology recs--S/P EEG, pt. 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 Follow Nephrology recs Follow neurology recs-- anoxic brain injury/not brain /seizures-=- no further workup at this time --poor prognosis Nutritional Support DVT/GI PPX-- Sub Q heparin D/W RN and RT Dr.riffle Marroquin/Corey Family in regards to goals or care Updated 01/08 Continue current support Follow neurology input, EEG performed today Dr. 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 Follow Nephrology recs -- MIRIAM with improving renal function -- IVF Follow neurology recs-- anoxic brain injury/not brain --poor prognosis Nutritional Support DVT/GI PPX-- Sub Q heparin D/W RN and RT PLAN: 1. cont vent support setting reviewed, abg reviewed, personally decreased rr to 16 not alert enough to do sbt off sedation 2. cont antibiotics. 3. Monitor blood sugars. 4. Neurology consulted for questionable seizures. on anti sz meds 5. elevate hob 6. DVT and GI prophylaxis. 7. follow Cardiology rec, p.r.n. hydralazine for elevated blood pressure. 8. has le edema, le venous doppler no dvt discussed w rn rt RAF CADET MD Jan 16, 2021 09:47
[2021-01-16] MEDS: ASPIRIN CHEWABLE 81 MG TABLET. PO SCH (10:05)
[2021-01-16] MEDS: ISOSORBIDE MONONITRATE 20 MG TABLET PO SCH ×2 (10:07→17:05)
[2021-01-16] MEDS: LOSARTAN POTASSIUM 50 MG TABLET. PO SCH (10:07)
[2021-01-16] MEDS: METOPROLOL TART IMMED RELEASE 25 MG TABLET. PO SCH ×2 (10:08→21:23)
[2021-01-16] MEDS: CLOPIDOGREL BISULFATE 75 MG TABLET PO SCH (10:09)
[2021-01-16] MEDS: hydrALAZINE 25 MG TABLET PO SCH ×2 (10:09→21:23)
[2021-01-16] MEDS: VALPROIC ACID (AS SODIUM SALT) 750 MG in IV DEXTROSE 5% 50 ML IV SCH ×2 (10:19→21:22)
--- NOTE | 2021-01-16 12:15 | PDOC ---
Renal-Progress Notes Subjective Notes Notes NONE History of Present Illness Hx of present illness NO ACUTE CHANGES Vitals Vitals Vital Signs Date Time Temp Pulse Resp B/P (MAP) Pulse Ox O2 Delivery O2 Flow Rate FiO2 01/16/21 12:00 100 Ventilator 01/16/21 10:09 77 119/93 01/16/21 06:00 18 01/16/21 04:00 98.4 98.4 Weight Weight [ ] I.O. Intake and Output Intake and Output 01/16/21 07:00 Intake Total 1310.0 ml Output Total 1105 ml Balance 205.0 ml Intake IV Total 115.0 ml Tube Feeding 975 ml Other 220 ml Output Urine Total 1105 ml Labs Labs Laboratory Tests Test 01/15/21 17:35 01/15/21 23:44 01/16/21 05:55 01/16/21 08:00 Glucose (Fingerstick) 110 mg/dL (70-99) 127 mg/dL (70-99) 144 mg/dL (70-99) Sodium Level 142 mmol/L (136-145) Potassium Level 4.0 mmol/L (3.5-5.1) Chloride Level 105 mmol/L (98-107) Carbon Dioxide Level 31 mmol/L (21-32) Anion Gap 6 (6-14) Blood Urea Nitrogen 17 mg/dL (7-20) Creatinine 1.3 mg/dL (0.6-1.0) Estimated GFR (Cockcroft-Gault) 50.2 Glucose Level 139 mg/dL (70-99) Calcium Level 8.8 mg/dL (8.5-10.1) O2 Saturation 99 % (92-99) Arterial Blood pH 7.47 (7.35-7.45) Arterial Blood pCO2 at Patient Temp 45 mmHg (35-46) Arterial Blood pO2 at Patient Temp 129 mmHg (65-108) Arterial Blood HCO3 32 mmol/L (21-28) Arterial Blood Base Excess 7 mmol/L (-3-3) FiO2 40 Micro Micro Microbiology 01/06/21 Blood Culture - Final, Complete NO GROWTH AFTER 5 DAYS 01/05/21 Gram Stain Evaluation - Final, Complete 01/05/21 Respiratory Culture - Final, Complete 01/05/21 Antimicrobic Susceptibility - Final, Complete 01/04/21 Urine Culture - Final, Complete Review of Systems Constitutional: yes: unresponsive Physical Exam General Appearance: no apparent distress, febrile Respiratory: ventilator (Mode:A/C), decreased breath sounds Heart: S1S2 Abdomen: soft Genitourinary: bladder flat Extremities: pulses present, no edema Neurology: other (off sedation. Pupils fixed. not following commands ) Assessment Assessment IMP [id number] OF 2.4 TO 1.3 HYPERNATREMIA-RESOLVED HYPOKALEMIA-CORRECTED ACUTE RESP FAILURE PROB PNEUMONIA DM II DIONNE OBESITY BACTEREMIA SEIZURES PLAN ANTIBIOTICS CONT WATER FLUSHES CONT WITH TF VENT SUPPORT REMAINS CRITICALLY ILL NEUROLOGY EVAL AND TX APPRECIATE NEUROLOGY TRACH AND PEG NEXT WK WILL FOLLOW JOEN EFE PRICE MD Jan 16, 2021 12:15
[2021-01-16] MEDS: FAMOTIDINE 20 MG/2 ML VIAL IVP SCH (21:22)
[2021-01-16] MEDS: ATORVASTATIN CALCIUM 40 MG TABLET. PO SCH (21:24)
[2021-01-17] VITALS (22 sets, daily range): BP systolic 99–188; BP diastolic 44–87
[2021-01-17] MEDS: HEPARIN for SUB-Q USE 5,000 UNIT/ML VIAL. SQ SCH ×3 (05:41→21:19)
[2021-01-17] MEDS: INSULIN LISPRO 300 UNITS/3 ML VIAL. SQ SCH ×3 (05:46→12:00)
--- NOTE | 2021-01-17 07:53 | PDOC ---
Infectious Disease Note Subjective Subjective Intubated , does not respond to any commands Now has constant twitching of right upper extremity Patient condition remains unchanged per discussion with RN Vital Sign Vital Signs Vital Signs Date Time Temp Pulse Resp B/P (MAP) Pulse Ox O2 Delivery O2 Flow Rate FiO2 01/17/21 07:00 76 18 109/55 (73) 100 Ventilator 01/17/21 05:00 98.9 98.9 Physical Exam PHYSICAL EXAM GENERAL: Intubated, opens eyes transiently, does not follow any commands HEENT: Normocephalic, atraumatic. Tongue protruded, ETT /OGT + NECK: Supple though fullness due to body habitus. LUNGS: Decreased breath sounds. No wheezing. HEART: S1, S2. Distant heart sounds. ABDOMEN: Obese. Bowel sounds present. EXTREMITIES: Minimal edema. No cyanosis. NEUROLOGIC: Intubated,right upper extremity twitching Left IJ clean Labs Lab Laboratory Tests Test 01/16/21 08:00 01/16/21 23:52 01/17/21 05:45 O2 Saturation 99 % (92-99) Arterial Blood pH 7.47 (7.35-7.45) Arterial Blood pCO2 at Patient Temp 45 mmHg (35-46) Arterial Blood pO2 at Patient Temp 129 mmHg (65-108) Arterial Blood HCO3 32 mmol/L (21-28) Arterial Blood Base Excess 7 mmol/L (-3-3) FiO2 40 Glucose (Fingerstick) 123 mg/dL (70-99) 143 mg/dL (70-99) Micro Microbiology 01/06/21 Blood Culture - Final, Complete NO GROWTH AFTER 5 DAYS 01/05/21 Gram Stain Evaluation - Final, Complete 01/05/21 Respiratory Culture - Final, Complete 01/05/21 Antimicrobic Susceptibility - Final, Complete 01/04/21 Urine Culture - Final, Complete Objective Assessment 1. Fever. Resolved 2. Leukocytosis and lactic acidosis. Proving 3. Acute hypoxic respiratory failure. Status post intubation 4. Suspected aspiration pneumonia. Sputum culture positive for mssa 5. Status post cardiopulmonary arrest. 6. Questionable seizures. Encephalopathy 7. Diabetes mellitus 2. 8. Morbid obesity. 9. Obstructive sleep apnea. 10. Coronary artery disease. 11. Chronic kidney disease 12. Hypernatremia and hyperkalemia. 13 Gram-positive bacteremia bacteremia 2 out of 4 bottles present on admission staph epidermidis Plan Plan of Care 1. off antibiotics 2. supportive care Follow-up repeat blood cultures 01/06 negative so far 3. Continue supportive care. 4. Critically ill. 5. Prognosis poor. need hospice Discussed with nursing staff JENNY CRUZ MD Jan 17, 2021 07:53
[2021-01-17] MEDS: ASPIRIN CHEWABLE 81 MG TABLET. PO SCH (08:08)
[2021-01-17] MEDS: LOSARTAN POTASSIUM 50 MG TABLET. PO SCH (08:09)
[2021-01-17] MEDS: ISOSORBIDE MONONITRATE 20 MG TABLET PO SCH ×2 (08:10→13:46)
[2021-01-17] MEDS: METOPROLOL TART IMMED RELEASE 25 MG TABLET. PO SCH ×2 (08:10→21:19)
[2021-01-17] MEDS: CLOPIDOGREL BISULFATE 75 MG TABLET PO SCH (08:10)
[2021-01-17] MEDS: VALPROIC ACID (AS SODIUM SALT) 750 MG in IV DEXTROSE 5% 50 ML IV SCH ×2 (08:11→21:18)
[2021-01-17] MEDS: hydrALAZINE 25 MG TABLET PO SCH ×2 (08:11→21:19)
[2021-01-17 08:13] LABS: BASE EXCESS ABG 7 mmol/L (-3-3); HCO3 ABG 32 mmol/L (21-28); PCO2 ABG 45 mmHg (35-46); PO2 ABG 114 mmHg (65-108); SAT O2 ABG 98 % (92-99)
--- NOTE | 2021-01-17 08:33 | PDOC ---
PULMONARY PROGRESS NOTES DATE: 01/17/21 TIME: 08:33 Subjective Pt. remains on vent support AC mode no new events no evidence of seizures on exam Vitals Vital Signs Date Time Temp Pulse Resp B/P (MAP) Pulse Ox O2 Delivery O2 Flow Rate FiO2 01/17/21 08:11 76 188/55 01/17/21 07:55 100 Ventilator 01/17/21 07:00 18 01/17/21 05:00 98.9 98.9 Comments unable to obtain 2/2 clinical state HEENT: Other (nc at perrl nose clear orally intubated neck no lad no thyromegaly ) Lungs: Crackles Cardiovascular: S1, S2 Abdomen: Soft, Non-tender, Other (no mass obese) Extremities: Other (edema) Skin: Warm Labs Laboratory Tests Test 01/15/21 17:35 01/15/21 23:44 01/16/21 05:55 01/16/21 08:00 Glucose (Fingerstick) 110 mg/dL (70-99) 127 mg/dL (70-99) 144 mg/dL (70-99) Sodium Level 142 mmol/L (136-145) Potassium Level 4.0 mmol/L (3.5-5.1) Chloride Level 105 mmol/L (98-107) Carbon Dioxide Level 31 mmol/L (21-32) Anion Gap 6 (6-14) Blood Urea Nitrogen 17 mg/dL (7-20) Creatinine 1.3 mg/dL (0.6-1.0) Estimated GFR (Cockcroft-Gault) 50.2 Glucose Level 139 mg/dL (70-99) Calcium Level 8.8 mg/dL (8.5-10.1) O2 Saturation 99 % (92-99) Arterial Blood pH 7.47 (7.35-7.45) Arterial Blood pCO2 at Patient Temp 45 mmHg (35-46) Arterial Blood pO2 at Patient Temp 129 mmHg (65-108) Arterial Blood HCO3 32 mmol/L (21-28) Arterial Blood Base Excess 7 mmol/L (-3-3) FiO2 40 Test 01/16/21 23:52 01/17/21 05:45 Glucose (Fingerstick) 123 mg/dL (70-99) 143 mg/dL (70-99) Laboratory Tests Test 01/16/21 23:52 01/17/21 05:45 Glucose (Fingerstick) 123 mg/dL (70-99) 143 mg/dL (70-99) Medications Active Scripts Medications Dose Route/Sig Max Daily Dose Days Date Category Dose Instructions Voltaren (Diclofenac Sodium) 100 Gm Gel..gram. 1 Gm TP QID 30 12/10/20 Reported apply to affected area(s) Oxycodone Hcl 5 Mg Capsule 5 Mg PO PRN Q6HRS PRN 12/08/20 Reported Nystatin 15 Gm Powder 1 [place] TP BID 7 12/08/20 Reported apply to affected area(s) Ondansetron Odt (Ondansetron) 4 Mg Tab.rapdis 1 Tab PO PRN Q8HRS PRN 11/05/20 Reported Reglan (Metoclopramide Hcl) 10 Mg Tablet 1 Tab PO QID 30 11/05/20 Reported before food and bedtime Pantoprazole Sodium (Pantoprazole Sodium) 40 Mg Tablet.dr 40 Mg PO BIDAC 30 06/21/20 Rx Losartan Potassium 100 Mg Tablet 100 Mg PO DAILY 05/03/20 Reported Aspirin 325 Mg Tablet 1 Tab PO DAILY 05/03/20 Reported Metformin Hcl 500 Mg Tablet 500 Mg PO BIDWMEALS 05/03/20 Reported Bumetanide 1 Mg Tablet 1 Mg PO BID 04/02/20 Reported Insulin Aspart 100 Unit/1 Ml Vial 60 Unit SQ TIDAC 04/02/20 Reported novolg flex pen Isosorbide Mononitrate Er (Isosorbide Mononitrate) 120 Mg Tab.er.24h 120 Mg PO DAILY 04/02/20 Reported NITROGLYCERIN SubLingual (Nitroglycerin) 0.4 Mg Tab.subl 0.4 Mg SL PRN Q5MIN PRN 04/02/20 Reported Albuterol Sulfate Neb Soln (Albuterol Sulfate) 2.5 Mg/3 Ml Vial.neb 2.5 Mg NEB Q4-6HRS PRN 04/02/20 Reported Levemir Flextouch (Insulin Detemir) 100 Unit/1 Ml Insuln.pen 60 Unit SQ HS 04/02/20 Reported Hydralazine Hcl 25 Mg Tablet 25 Mg PO BID 04/02/20 Reported Fluticasone Propionate Nasal [place] (Fluticasone Propionate) 16 Gm [place].susp 2 [place] NS DAILY 06/18/19 Reported Zolpidem Tartrate 5 Mg Tablet 5 Mg PO PRN QHS PRN 06/18/19 Reported Amlodipine Besylate 10 Mg Tablet 10 Mg PO DAILY 06/18/19 Reported Gabapentin 600 Mg Tablet 600 Mg PO BID 06/18/19 Reported Potassium Chloride (Potassium Chloride) 20 Meq Tablet.er 20 Meq PO BID 06/18/19 Reported Clopidogrel (Clopidogrel Bisulfate) 75 Mg Tablet 75 Mg PO DAILYWBKFT 75 11/10/17 Rx Proair Respiclick (Albuterol Sulfate) 90 Mcg Aer.pow.ba 2 Puff IH PRN Q4-6HRS PRN 09/08/16 Reported Cyclobenzaprine Hcl 10 Mg Tablet 1 Tab PO BID PRN 09/08/16 Reported Requip (Ropinirole Hcl) 1 Mg Tablet 1 Tab PO QHS 09/08/16 Reported Crestor (Rosuvastatin Calcium) 20 Mg Tablet 20 Mg PO HS 10/02/15 Reported LAST DOSE: 10/01/15 BEDTIME NEXT DOSE: 10/02/15 BEDTIME Oxybutynin Chloride 5 Mg Tablet 1 Tab PO DAILY 10/02/15 Reported LAST DOSE: 10/02/15 AM NEXT DOSE: 10/03/15 AM Comments CXR 01/10/21 IMPRESSION: Resolution of left pleural effusion. Unchanged bilateral opacities. CXR 01/07 IMPRESSION: 1. Diffuse interstitial prominence may be seen with interstitial pulmonary edema or atypical infectious/inflammatory process. 2. Support lines and tubes as above. 3. Mild cardiomegaly. Impression . 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 Echo 12/2019 with LVEF 45%, improved on cath on 12/07 Coronary artery disease with recent -- cath 12/07 showed patent long stented proximal to distal LAD. No lesions needing intervention were noted. Echo with LVEF 55 to 60%. Type 2 diabetes. Chronic obstructive pulmonary disease. Morbid obesity. Hypertension. Obstructive sleep apnea. MIRIAM cr trending down Plan . UPDATED 01/17/21 No clinical change Continue current vent support in AC mode --setting reviewed Follow ABG/CXR-- no change Follow ID recs--now off ABX Follow surgery recs-- Trach planned for 01/22/21 Follow GI recs- planned for PEG Follow Nephrology recs--depakote, seizure precautions DVT/GI PPX-- sub q heparin D/W RN and RT FULL CODE UPDATED 01/16/21 No clinical change Continue current vent support in AC mode -- Follow ID recs--now off ABX Follow surgery recs-- Trach planned Follow GI recs- planned for PEG Follow cardiology recs--no further work at this time Follow Nephrology recs--depakote, seizure precautions DVT/GI PPX-- sub q heparin D/W RN and RT FULL CODE UPDATED 01/15/21 Continue current vent support in AC mode --12/450/40% and PEEP of 5 Follow ID recs--now off ABX Follow surgery recs-- recommends comfort measures, considering trach 01/22/21 Follow GI recs- planned for PEG this week Follow cardiology recs--no further work at this time Follow Nephrology recs--depakote, seizure precautions DVT/GI PPX-- sub q heparin Social work for DC planning D/W RN and RT FULL CODE RAF CADET MD Jan 17, 2021 08:33
[2021-01-17 08:40] LABS: FIO2 ABG 35/VENT
--- NOTE | 2021-01-17 10:25 | NUR ---
SS following up with discharge planning. SS reviewed pt chart and discussed with pt RN. Pt is currently on the vent at 35%. Not responsive. Full Code. Pt's son wants full aggressive care. Dr. Coleman consulted and tentative trach scheduled for 01/22/2021. SS will continue to follow for discharge planning.
--- NOTE | 2021-01-17 11:05 | PDOC ---
[facility] PROGRESS NOTE Date of Service DOS: DATE: 01/17/21 TIME: 11:03 Chief Complaint Chief Complaint Respiratory failure Status post CODE BLUE Severe anoxic brain injury Pneumonia Hyperkalemia Sepsis Obesity Protein malnutrition Hypertensive urgency Seizures CHF COPD History of Present Illness History of Present Illness 01/17/2021 Patient seen and examined in the ICU She remains on the ventilator AC/12/450/30 5% with 5 of PEEP On IV Depakote SCDs are in place Right arm still twitching Pupils are fixed with minimal reaction Discussed with RN Chart reviewed She remains critically ill and is in a persistent vegetative state We would like to move towards hospice but the family would like us to move forward with tracheostomy (she is tentatively scheduled for 01/22/2021) 01/16/2021 Patient seen and examined in the ICU She remains on the ventilator AC/12/450/40 with 5 of PEEP Has Johnson bedside drainage Has SCDs in place OG running at 45 cc an hour Has Depakote IV hanging Discussed with RN Chart reviewed She remains critically ill 01/15/2021 Patient seen and examined in the ICU Discussed with RN Chart reviewed Discussed with case management The patient remains on the ventilator AC/12/450/40 percent with 5 of PEEP Scheduled to get tracheostomy on 01/22/2021 OG running at 35 cc an hour She has SCDs in place She has a Johnson to bedside drainage On Depakote drip Her right arm is twitching She remains critically ill with a poor prognosis but the family wants everything still done 01/14/2021 Patient seen and examined in the ICU She remains mechanically ventilated and is unresponsive despite no sedation AC/12/450/40 percent with 5 of PEEP Has IV Zosyn hanging Has Johnson to bedside drainage Discussed with RN Discussed with case management Chart reviewed She remains critically ill Ms Castro is a 60 year old female w/ PMHx Asthma, CAD s/p stenting x6, CHF, COPD, Diabetes-Type II, High Cholesterol, Hypertension, neuropathy, morbid obesity, RLS, insomnia who presented to ER after she was brought here by EMS from home after she was found unresponsive in her bed by her family. Patient was last known normal was 9 AM on 01/03/2021. family tried to call her but could not get a hold of her so they show up to her house, found her unresponsive in her bed. Per family, patient had a CPAP machine on but the mask slid off her face, there was lot of mucus and material around her face and on her neck area. Patient was responsive to painful stimuli but was very confused, did not follow command. EMS were called, they found her in respiratory distress, GCS of 7-8, they bagged her and brought her here. Upon arrival to room, patient was unresponsive to verbal, severe respiratory dist ress, need emergent intubation. During the difficult intubation patient became bradycardic and CODE BLUE was initiated. Patient subsequently went into ventricular fibrillation, underwent shock therapy and was initiated on intravenous amiodarone infusion and admitted to ICU. She has been admitted to [place] [address] for intractable nausea and vomiting and PMC once has had this as well as intense pruritis for 6 months. Was seen and treated for same in November, underwent cardiac cath and GI consultation at the time, was d ischarged home. Her family stated that patient was seen here 2 days prior for epigastric abdominal pain. It was recommended that she need to stay in the hospital however patient did not want to stay in the hospital so she went home. AMA. 01/05: No acute events overnight. Patient seen and examined bedside. Patient remains intubated. Without sedation. Vent settings at 18/450/40/5. Patient is not responding to painful stimuli at this time. There is a lot of secretions. Currently not on any vasopressors 01/06: No acute events overnight. Patient withdraws to pain. Still intubated with vent settings at 16/450/40/5. Not on any sedation at this time. 01/07: No overnight events. Afebrile. On vent with no sedation for 48 hours FiO2 40% PEEP of 5. Not requiring vasopressors. Not making meaningful eye contact or meaningful movement. Minimal reflexes. Breathing over the vent. Di scussed with sonLance overall poor prognosis given what is likely anoxic encephalopathy. He wants to discuss with his aunt Liss and sister Camille future goals of care. 01/08: No events. Afebrile. Still with no meaningful activity no sedation on vent FiO2 40% PEEP of 5, ABG 7.45/46/142. No BM. Adequate UOP. No residuals on feeds. EEG interpreted by neurology as abnormal because of a severe diffuse disturbance of cerebral activity, consistent with a very poor prognosis from anoxic encephalopathy. 01/09: Overnight ventilated no significant activity he still off sedation. K3.2. Vent FiO2 40% PEEP of 5. Chest radiograph unchanged from prior. Right hand with new twitching, concerning for seizure activity, d/w neurology. D/w sons goals of care and grim neurologic prognosis. 01/10: Afebrile, K3.1. ABG 7.4 7/40/129 on 40% FiO2. CXR stable. Still with right hand tremor. Long d/w son, Lance, and his significant other. 01/11: No overnight events. Chest radiograph stable, ABG on 40% FiO2 and PEEP 5 was 7.48/46/137. Heart rate slowing down and blood pressure coming up a bit. Glucose stable. No sedating meds for over 96 hours. No meaningful interaction. Babinski reflexes demonstrated to family. 01/12: Afebrile overnight. Creatinine 1.3, Hb 9.2. Having more PVCs on monitor today. On 40% FiO2 PEEP of 5. Blood pressure little elevated requiring additional IV dose of hydralazine. Still with right arm twitching and irregular mouth movement. No meaningful neurologic interaction. Afebrile overnight. Chest radiograph appears relatively unchanged from prior. Still with multiple PVCs. On vent without sedation since 01/04/2021. FiO2 40% PEEP 5 ABG 7.46/49/129. Still with right arm twitching, more severe. Attempted to call Lance, son and DPOA, no answer, voicemail full, but last evening he did come in and request to move forward with trach and PEG referrals, does not want to discuss end-of-life care with me anymore Vitals/I&O Vitals/I&O: Vital Signs Date Time Temp Pulse Resp B/P (MAP) Pulse Ox O2 Delivery O2 Flow Rate FiO2 01/17/21 09:42 100 Ventilator 01/17/21 09:00 58 18 99/44 (62) 01/17/21 08:00 99.4 99.4 I & O 01/16/21 01/16/21 01/17/21 15:00 23:00 07:00 Intake Total 57.5 ml 1735 ml 1379.5 ml Output Total 425 ml 475 ml 400 ml Balance -367.5 ml 1260 ml 979.5 ml Physical Exam Physical Exam: GENERAL: Intubated, opens eyes transiently, does not follow any commands HEENT: Normocephalic, atraumatic. Tongue protruded, ETT /OGT + NECK: Supple though fullness due to body habitus. LUNGS: Decreased breath sounds. No wheezing. HEART: S1, S2. Distant heart sounds. ABDOMEN: Obese. Bowel sounds present. EXTREMITIES: Minimal edema. No cyanosis. NEUROLOGIC: Intubated,right upper extremity twitching Left IJ clean General: No acute distress Heart: Regular rate Lungs: Crackles Abdomen: Soft Extremities: Other (Trace edema) Labs Labs: Laboratory Tests Test 01/16/21 23:52 01/17/21 05:45 01/17/21 08:00 Glucose (Fingerstick) 123 mg/dL (70-99) 143 mg/dL (70-99) O2 Saturation 98 % (92-99) Arterial Blood pH 7.46 (7.35-7.45) Arterial Blood pCO2 at Patient Temp 45 mmHg (35-46) Arterial Blood pO2 at Patient Temp 114 mmHg (65-108) Arterial Blood HCO3 32 mmol/L (21-28) Arterial Blood Base Excess 7 mmol/L (-3-3) FiO2 35/vent Assessment and Plan Assessmemt and Plan Problems Medical Problems: (1) Acute renal failure Status: Acute (2) Altered mental status Status: Acute (3) Aspiration pneumonia Status: Acute (4) Hyperkalemia Status: Acute (5) Respiratory failure Status: Acute (6) Sepsis Status: Acute Respiratory failure Status post CODE BLUE Severe anoxic brain injury Persistent vegetative state Pneumonia Hyperkalemia Sepsis Obesity Protein malnutrition Hypertensive urgency Seizures CHF COPD Plan ICU monitoring Vent weaning if possible but unlikely Continue the IV Zosyn Continue Johnson to bedside drainage Her prognosis is extremely poor Surgery nephrology cardiology nephrology and neuro following For now trend labs Home meds Continue OG feeds DVT prophylaxis We would like to move towards hospice but family prefers tracheostomy (scheduled for tracheostomy on 01/22/2021) Continue Keppra Full code per family request despite poor prognosis CC time 34-minutes Comment Review of Relevant I have reviewed the following items shady (where applicable) has been applied. Justifications for Admission Other Justification cardiac arrest KATHE MARIE III DO Jan 17, 2021 11:05
--- NOTE | 2021-01-17 11:16 | PDOC ---
Renal-Progress Notes Subjective Notes Notes NOTHING NEW History of Present Illness Hx of present illness REMAINS UNCHANGED Vitals Vitals Vital Signs Date Time Temp Pulse Resp B/P (MAP) Pulse Ox O2 Delivery O2 Flow Rate FiO2 01/17/21 11:00 64 18 155/61 (92) 100 Ventilator 01/17/21 08:00 99.4 99.4 Weight Weight [ ] I.O. Intake and Output Intake and Output 01/17/21 07:00 Intake Total 3172.0 ml Output Total 1300 ml Balance 1872.0 ml Intake Oral 1000 ml IV Total 115.0 ml Tube Feeding 727 ml Other 1330 ml Output Urine Total 1300 ml # Bowel Movements 3 Labs Labs Laboratory Tests Test 01/16/21 23:52 01/17/21 05:45 01/17/21 08:00 Glucose (Fingerstick) 123 mg/dL (70-99) 143 mg/dL (70-99) O2 Saturation 98 % (92-99) Arterial Blood pH 7.46 (7.35-7.45) Arterial Blood pCO2 at Patient Temp 45 mmHg (35-46) Arterial Blood pO2 at Patient Temp 114 mmHg (65-108) Arterial Blood HCO3 32 mmol/L (21-28) Arterial Blood Base Excess 7 mmol/L (-3-3) FiO2 35/vent Micro Micro Microbiology 01/06/21 Blood Culture - Final, Complete NO GROWTH AFTER 5 DAYS 01/05/21 Gram Stain Evaluation - Final, Complete 01/05/21 Respiratory Culture - Final, Complete 01/05/21 Antimicrobic Susceptibility - Final, Complete 01/04/21 Urine Culture - Final, Complete Review of Systems Constitutional: yes: unresponsive Physical Exam General Appearance: no apparent distress, febrile Respiratory: ventilator (Mode:A/C), decreased breath sounds Heart: S1S2 Abdomen: soft Genitourinary: bladder flat Extremities: pulses present, no edema Neurology: other (off sedation. Pupils fixed. not following commands ) Assessment Assessment IMP [id number] OF 2.4 TO 1.3 HYPERNATREMIA-RESOLVED HYPOKALEMIA-CORRECTED ACUTE RESP FAILURE PROB PNEUMONIA DM II DIONNE OBESITY BACTEREMIA SEIZURES PLAN ANTIBIOTICS CONT WATER FLUSHES AND TF VENT SUPPORT REMAINS CRITICALLY ILL NEUROLOGY EVAL AND TX APPRECIATE NEUROLOGY TRACH AND PEG NEXT WK WILL FOLLOW PRN EFE PRICE MD Jan 17, 2021 11:16
--- NOTE | 2021-01-17 12:01 | PDOC ---
PROGRESS NOTES Date of Service DATE: 01/17/21 TIME: 12:00 Assessment Problems Medical Problems: (1) Acute renal failure Status: Acute (2) Altered mental status Status: Acute (3) Aspiration pneumonia Status: Acute (4) Hyperkalemia Status: Acute (5) Respiratory failure Status: Acute (6) Sepsis Status: Acute Metabolic encephalopathy, only has basic brainstem reflexes PLEDS and burst-suppression on EEG Respiratory failure, aspiration pneumonia, possible sepsis Acute STEMI, coronary artery disease status post stenting, chronic obstructive pulmonary disease, asthma, congestive heart failure, morbid obesity, renal failure, hyperkalemia, severe protein malnutrition, hypertensive urgency, hyperl ipidemia, type 2 diabetes, obstructive sleep apnea, restless leg syndrome, peripheral neuropathy Plan Son Lance wants trach and PEG, scheduled for next week, 01/22 Continue treating medical issues Aggressive treatment of the seizure activity is unlikely to affect outcome and would cloud the examination. Continue IV Depacon Overall prognosis is poor, but patient is not brain Subjective None Objective Vital Signs Date Time Temp Pulse Resp B/P (MAP) Pulse Ox O2 Delivery O2 Flow Rate FiO2 01/17/21 11:17 100 Ventilator 01/17/21 11:00 64 18 155/61 (92) 01/17/21 08:00 99.4 99.4 Intake and Output 01/17/21 07:00 Intake Total 3172.0 ml Output Total 1300 ml Balance 1872.0 ml Intake Oral 1000 ml IV Total 115.0 ml Tube Feeding 727 ml Other 1330 ml Output Urine Total 1300 ml # Bowel Movements 3 PHYSICAL EXAM No response to pain Triggers ventilator Does have myoclonic movements of right hand Pupils unreactive EOMI. roving eye movements CN: no focal findings. Muscle tone: normal. Muscle strength: No response DTR: 1+ Plantar reflex: Silent Gait: not examined Sensory exam: Not cooperative. Cerebellar: Not cooperative Review of Relevant I have reviewed the following items shady (where applicable) has been applied. Labs Laboratory Tests Test 01/15/21 17:35 01/15/21 23:44 01/16/21 05:55 01/16/21 08:00 Glucose (Fingerstick) 110 mg/dL (70-99) 127 mg/dL (70-99) 144 mg/dL (70-99) Sodium Level 142 mmol/L (136-145) Potassium Level 4.0 mmol/L (3.5-5.1) Chloride Level 105 mmol/L (98-107) Carbon Dioxide Level 31 mmol/L (21-32) Anion Gap 6 (6-14) Blood Urea Nitrogen 17 mg/dL (7-20) Creatinine 1.3 mg/dL (0.6-1.0) Estimated GFR (Cockcroft-Gault) 50.2 Glucose Level 139 mg/dL (70-99) Calcium Level 8.8 mg/dL (8.5-10.1) O2 Saturation 99 % (92-99) Arterial Blood pH 7.47 (7.35-7.45) Arterial Blood pCO2 at Patient Temp 45 mmHg (35-46) Arterial Blood pO2 at Patient Temp 129 mmHg (65-108) Arterial Blood HCO3 32 mmol/L (21-28) Arterial Blood Base Excess 7 mmol/L (-3-3) FiO2 40 Test 01/16/21 23:52 01/17/21 05:45 01/17/21 08:00 Glucose (Fingerstick) 123 mg/dL (70-99) 143 mg/dL (70-99) O2 Saturation 98 % (92-99) Arterial Blood pH 7.46 (7.35-7.45) Arterial Blood pCO2 at Patient Temp 45 mmHg (35-46) Arterial Blood pO2 at Patient Temp 114 mmHg (65-108) Arterial Blood HCO3 32 mmol/L (21-28) Arterial Blood Base Excess 7 mmol/L (-3-3) FiO2 35/vent Laboratory Tests Test 01/16/21 23:52 01/17/21 05:45 01/17/21 08:00 Glucose (Fingerstick) 123 mg/dL (70-99) 143 mg/dL (70-99) O2 Saturation 98 % (92-99) Arterial Blood pH 7.46 (7.35-7.45) Arterial Blood pCO2 at Patient Temp 45 mmHg (35-46) Arterial Blood pO2 at Patient Temp 114 mmHg (65-108) Arterial Blood HCO3 32 mmol/L (21-28) Arterial Blood Base Excess 7 mmol/L (-3-3) FiO2 35/vent Microbiology 01/06/21 Blood Culture - Final, Complete NO GROWTH AFTER 5 DAYS 01/05/21 Gram Stain Evaluation - Final, Complete 01/05/21 Respiratory Culture - Final, Complete 01/05/21 Antimicrobic Susceptibility - Final, Complete 01/04/21 Urine Culture - Final, Complete Medications Current Medications Amiodarone HCl 450 mg/Dextrose 259 ml @ 33 mls/hr 1X ONCE IV Last administered on 01/04/21at 11:40; Start 01/04/21 at 11:15; Stop 01/04/21 at 19:05; Status DC Midazolam HCl 100 ml @ 1 mls/hr 1X ONCE IV Last administered on 01/04/21at 11:39; Start 01/04/21 at 11:30; Stop 01/05/21 at 09:51; Status DC Sodium Chloride 1,000 ml @ 1,000 mls/hr 1X ONCE IV Last administered on 01/04/21at 12:13; Start 01/04/21 at 11:45; Stop 01/04/21 at 12:44; Status DC Sodium Bicarbonate (Sodium Bicarb Adult 8.4% Syr) 50 meq 1X ONCE IV Last administered on 01/04/21at 12:55; Start 01/04/21 at 12:00; Stop 01/04/21 at 12:01; Status DC Dextrose (Dextrose 50%-Water Syringe) 25 gm 1X ONCE IV Last administered on 01/04/21at 12:53; Start 01/04/21 at 12:00; Stop 01/04/21 at 12:01; Status DC Insulin Human Regular (HumuLIN R VIAL) 10 unit 1X ONCE IV Last administered on 01/04/21at 12:52; Start 01/04/21 at 12:00; Stop 01/04/21 at 12:01; Status DC Piperacillin Sod/ Tazobactam Sod 3.375 gm/Sodium Chloride 50 ml @ 100 mls/hr 1X ONCE IV Last administered on 01/04/21at 12:12; Start 01/04/21 at 12:00; Stop 01/04/21 at 12:29; Status DC Succinylcholine Chloride (Anectine) 100 mg 1X ONCE IV Last administered on 01/04/21at 11:03; Start 01/04/21 at 12:45; Stop 01/04/21 at 12:46; Status DC Etomidate (Amidate) 20 mg 1X ONCE IV Last administered on 01/04/21at 11:02; Start 01/04/21 at 12:45; Stop 01/04/21 at 12:46; Status DC Rocuronium Percy (Zemuron) 100 mg 1X ONCE IV ; Start 01/04/21 at 12:45; Stop 01/04/21 at 12:46; Status Cancel Midazolam HCl (Versed) 5 mg 1X ONCE IV Last administered on 01/04/21at 11:30; Start 01/04/21 at 12:45; Stop 01/04/21 at 12:46; Status DC Rocuronium Percy (Zemuron) 100 mg 1X ONCE IV Last administered on 01/04/21at 11:33; Start 01/04/21 at 12:45; Stop 01/04/21 at 12:46; Status DC Ondansetron HCl (Zofran) 4 mg PRN Q8HRS PRN IV NAUSEA/VOMITING; Start 01/04/21 at 13:00; Stop 01/05/21 at 09:48; Status DC Sodium Chloride 1,000 ml @ 100 mls/hr Q10H IV Last administered on 01/05/21at 09:41; Start 01/04/21 at 13:00; Stop 01/05/21 at 12:59; Status DC Ondansetron HCl (Zofran) 4 mg PRN Q6HRS PRN IVP NAUSEA/VOMITING; Start 01/04/21 at 14:00 Famotidine (Pepcid Vial) 20 mg QHS IVP Last administered on 01/16/21at 21:22; Start 01/04/21 at 21:00 Heparin Sodium (Porcine) (Heparin Sodium) 5,000 unit Q8HRS SQ Last administered on 01/17/21at 05:41; Start 01/04/21 at 14:00 Sodium Chloride (Normal Saline Flush) 3 ml QSHIFT PRN IV AFTER MEDS AND BLOOD DRAWS; Start 01/04/21 at 14:00 Bisacodyl (Dulcolax Supp) 10 mg PRN DAILY PRN [place] CONSTIPATION; Start 01/04/21 at 14:00 Piperacillin Sod/ Tazobactam Sod (Zosyn Per Pharmacy) 1 each PRN DAILY PRN MC SEE COMMENTS; Start 01/04/21 at 14:00; Stop 01/04/21 at 17:48; Status DC Piperacillin Sod/ Tazobactam Sod 2.25 gm/Sodium Chloride 50 ml @ 100 mls/hr Q6HRS IV ; Start 01/04/21 at 18:00; Stop 01/04/21 at 17:49; Status DC Dextrose (Dextrose 50%-Water Syringe) 25 gm 1X ONCE IV Last administered on 01/04/21at 16:21; Start 01/04/21 at 16:15; Stop 01/04/21 at 16:16; Status DC Meropenem 500 mg/ Sodium Chloride 50 ml @ 100 mls/hr Q8HRS IV ; Start 01/04/21 at 18:00; Status Cancel Piperacillin Sod/ Tazobactam Sod 2.25 gm/Sodium Chloride 50 ml @ 100 mls/hr Q8HRS IV Last administered on 01/08/21at 06:01; Start 01/04/21 at 22:00; Stop 01/08/21 at 07:50; Status DC Linezolid/Dextrose 300 ml @ 300 mls/hr Q12HR IV Last administered on 01/07/21at 21:23; Start 01/04/21 at 21:00; Stop 01/08/21 at 10:41; Status DC Valproic Acid 500 mg/Dextrose 55 ml @ 55 mls/hr Q12HR IV Last administered on 01/05/21at 09:40; Start 01/05/21 at 09:00; Stop 01/05/21 at 17:28; Status DC Valproic Acid 1000 mg/Dextrose 60 ml @ 60 mls/hr 1X ONCE IV Last administered on 01/04/21at 19:30; Start 01/04/21 at 19:30; Stop 01/04/21 at 20:29; Status DC Lorazepam (Ativan Inj) 2 mg PRN Q2HRS PRN IVP ANXIETY / AGITATION Last administered on 01/05/21at 23:30; Start 01/04/21 at 19:30; Stop 01/08/21 at 08:16; Status DC Hydralazine HCl (Apresoline Inj) 10 mg PRN Q6HRS PRN IVP ELEVATED BP, SEE COMMENTS Last administered on 01/15/21at 23:52; Start 01/04/21 at 19:45 Amiodarone HCl 450 mg/Dextrose 259 ml @ 33 mls/hr CONT PRN IV SEE I/O RECORD Last administered on 01/05/21at 11:50; Start 01/04/21 at 20:15; Stop 01/05/21 at 11:50; Status DC Midazolam HCl 100 ml @ 1 mls/hr CONT PRN IV SEE I/O RECORD Last administered on 01/05/21at 02:00; Start 01/05/21 at 02:00; Stop 01/08/21 at 08:16; Status DC Daptomycin 600 mg/ Sodium Chloride 50 ml @ 100 mls/hr Q48H IV Last administered on 01/07/21at 15:40; Start 01/05/21 at 16:00; Stop 01/08/21 at 07:52; Status DC Scopolamine (Transderm-Scop) 1 patch Q3DAYS TD Last administered on 01/08/21at 08:08; Start 01/05/21 at 17:00; Stop 01/08/21 at 08:16; Status DC Valproic Acid 750 mg/Dextrose 57.5 ml @ 57.5 mls/hr Q12HR IV Last administered on 01/17/21at 08:11; Start 01/05/21 at 21:00 Insulin Human Lispro (HumaLOG) 0-5 UNITS TIDWMEALS SQ Last administered on 12/18 04/09at 18:27; Start 01/05/21 at 18:30; Stop 01/06/21 at 08:42; Status DC Dextrose (Dextrose 50%-Water Syringe) 12.5 gm PRN Q15MIN PRN IV SEE COMMENTS; Start 01/05/21 at 18:15 Amiodarone HCl 450 mg/Dextrose 259 ml @ 0 mls/hr 1X ONCE IV Last administered on 01/06/21at 02:00; Start 01/06/21 at 02:00; Stop 01/06/21 at 02:01; Status DC Insulin Human Lispro (HumaLOG) 0-5 UNITS Q6HRS SQ ; Start 01/06/21 at 12:00 Amiodarone HCl 450 mg/Dextrose 259 ml @ 0 mls/hr 1X ONCE IV Last administered on 01/06/21at 17:05; Start 01/06/21 at 17:00; Stop 01/06/21 at 17:01; Status DC Amiodarone HCl (Cordarone) 400 mg DAILY PO ; Start 01/07/21 at 14:00; Stop 01/07/21 at 13:15; Status DC Multi-Ingred Cream/Lotion/Oil/ Oint (Artificial Tears Eye Ointment) 1 chio PRN Q1HR PRN OU DRY EYE Last administered on 01/07/21at 14:14; Start 01/07/21 at 13:00 Aspirin (Blessing Aspirin) 325 mg DAILY PO Last administered on 01/08/21at 08:12; Start 01/08/21 at 09:00; Stop 01/09/21 at 09:16; Status DC Clopidogrel Bisulfate (Plavix) 75 mg DAILYWBKFT PO Last administered on 01/17/21at 08:10; Start 01/08/21 at 08:00 Hydralazine HCl (Apresoline) 25 mg BID PO Last administered on 01/17/21at 08:11; Start 01/07/21 at 21:00 Metoprolol Succinate (Toprol Xl) 25 mg DAILY PO ; Start 01/08/21 at 09:00; Stop 01/08/21 at 07:44; Status DC Isosorbide Mononitrate (Imdur) 120 mg DAILY PO ; Start 01/08/21 at 09:00; Stop 01/08/21 at 08:16; Status DC Losartan Potassium (Cozaar) 100 mg DAILY PO Last administered on 01/17/21at 08:09; Start 01/08/21 at 09:00 Atorvastatin Calcium (Lipitor) 80 mg QHS PO Last administered on 01/16/21at 21:24; Start 01/07/21 at 21:00 Epinephrine HCl (EPINEPHrine SYRINGE) 2 mg STK-MED ONCE .ROUTE ; Start 01/04/21 at 11:00; Stop 01/07/21 at 17:12; Status DC Amiodarone HCl (Cordarone) 300 mg STK-MED ONCE .ROUTE ; Start 01/04/21 at 11:00; Stop 01/07/21 at 17:12; Status DC Metoprolol Tartrate (Lopressor) 12.5 mg BID PO Last administered on 01/17/21at 08:10; Start 01/08/21 at 09:00 Piperacillin Sod/ Tazobactam Sod 3.375 gm/Sodium Chloride 50 ml @ 100 mls/hr Q6HRS IV Last administered on 01/15/21at 05:29; Start 01/08/21 at 12:00; Stop 01/15/21 at 07:56; Status DC Daptomycin 600 mg/ Sodium Chloride 50 ml @ 100 mls/hr Q24H IV Last administered on 01/11/21at 15:56; Start 01/08/21 at 16:00; Stop 01/12/21 at 09:34; Status DC Isosorbide Mononitrate (Ismo) 20 mg [id number] PO Last administered on 01/17/21at 08:10; Start 01/08/21 at 09:00 Aspirin (Aspirin Chewable) 81 mg DAILYWBKFT PO Last administered on 01/17/21at 08:08; Start 01/08/21 at 08:30 Glycopyrrolate (Robinul) 1 mg PRN DAILY PRN IV Secretions Last administered on 01/13/21at 09:13; Start 01/08/21 at 08:45 Potassium Chloride/Water 100 ml @ 100 mls/hr Q1H IV Last administered on 01/08/21at 13:37; Start 01/08/21 at 12:00; Stop 01/08/21 at 13:59; Status DC Potassium Bicarbonate (Potassium Effervescent Tablet) 40 meq 1X ONCE PEG Last administered on 01/09/21at 11:02; Start 01/09/21 at 09:30; Stop 01/09/21 at 09:31; Status DC Potassium Bicarbonate (Potassium Effervescent Tablet) 40 meq 1X ONCE PO Last administered on 01/10/21at 07:19; Start 01/10/21 at 08:00; Stop 01/10/21 at 08:01; Status DC Furosemide (Lasix) 40 mg 1X ONCE IVP Last administered on 01/10/21at 17:48; Start 01/10/21 at 17:45; Stop 01/10/21 at 17:46; Status DC Potassium Bicarbonate (Potassium Effervescent Tablet) 40 meq 1X ONCE PEG Last administered on 01/10/21at 19:15; Start 01/10/21 at 19:00; Stop 01/10/21 at 19:01 ; Status DC Active Scripts Active Promethazine Hcl 12.5 Mg Tablet 12.5 Mg PO PRN Q6HRS PRN 30 Days Metoprolol Succinate ( Xl ) (Metoprolol Succinate) 25 Mg Tab.er.24h 25 Mg PO DAILY 30 Days Pantoprazole Sodium (Pantoprazole Sodium) 40 Mg Tablet.dr 40 Mg PO BIDAC 30 Days Clopidogrel (Clopidogrel Bisulfate) 75 Mg Tablet 75 Mg PO DAILYWBKFT 75 Days Reported Voltaren (Diclofenac Sodium) 100 Gm Gel..gram. 1 Gm TP QID 30 Days apply to affected area(s) Nystatin 15 Gm Powder 1 Chio TP BID 7 Days apply to affected area(s) Ondansetron Odt (Ondansetron) 4 Mg Tab.rapdis 1 Tab PO PRN Q8HRS PRN Reglan (Metoclopramide Hcl) 10 Mg Tablet 1 Tab PO QID 30 Days before food and bedtime Losartan Potassium 100 Mg Tablet 100 Mg PO DAILY Aspirin 325 Mg Tablet 1 Tab PO DAILY Metformin Hcl 500 Mg Tablet 500 Mg PO BIDWMEALS Bumetanide 1 Mg Tablet 1 Mg PO BID Insulin Aspart 100 Unit/1 Ml Vial 60 Unit SQ TIDAC novolg flex pen Isosorbide Mononitrate Er (Isosorbide Mononitrate) 120 Mg Tab.er.24h 120 Mg PO DAILY NITROGLYCERIN SubLingual (Nitroglycerin) 0.4 Mg Tab.subl 0.4 Mg SL PRN Q5MIN PRN Albuterol Sulfate Neb Soln (Albuterol Sulfate) 2.5 Mg/3 Ml Vial.neb 2.5 Mg NEB Q4-6HRS PRN Levemir Flextouch (Insulin Detemir) 100 Unit/1 Ml Insuln.pen 60 Unit SQ HS Hydralazine Hcl 25 Mg Tablet 25 Mg PO BID Fluticasone Propionate Nasal [place] (Fluticasone Propionate) 16 Gm [place].susp 2 [place] NS DAILY Zolpidem Tartrate 5 Mg Tablet 5 Mg PO PRN QHS PRN Amlodipine Besylate 10 Mg Tablet 10 Mg PO DAILY Gabapentin 600 Mg Tablet 600 Mg PO BID Potassium Chloride (Potassium Chloride) 20 Meq Tablet.er 20 Meq PO BID Proair Respiclick (Albuterol Sulfate) 90 Mcg Aer.pow.ba 2 Puff IH PRN Q4-6HRS PRN Cyclobenzaprine Hcl 10 Mg Tablet 1 Tab PO BID PRN Requip (Ropinirole Hcl) 1 Mg Tablet 1 Tab PO QHS Crestor (Rosuvastatin Calcium) 20 Mg Tablet 20 Mg PO HS LAST DOSE: 10/01/15 BEDTIME NEXT DOSE: 10/02/15 BEDTIME Oxybutynin Chloride 5 Mg Tablet 1 Tab PO DAILY LAST DOSE: 10/02/15 AM NEXT DOSE: 10/03/15 AM Vitals/I & O Vital Sign - Last 24 Hours 01/16/21 01/16/21 01/16/21 01/16/21 13:00 13:26 14:00 15:00 Pulse 70 74 72 Resp 18 18 18 B/P (MAP) 119/46 (70) 140/67 (91) 144/59 (87) Pulse Ox 100 100 99 100 O2 Delivery Ventilator Ventilator Ventilator Ventilator 01/16/21 01/16/21 01/16/21 01/16/21 16:00 16:00 16:15 17:00 Temp 99.1 99.1 Pulse 82 72 Resp 18 18 B/P (MAP) 163/107 (125) 149/72 (97) Pulse Ox 100 100 100 O2 Delivery Ventilator Mechanical Ventilator Ventilator Ventilator 01/16/21 01/16/21 01/16/21 01/16/21 17:05 18:00 19:00 20:00 Pulse 68 72 Resp 18 19 B/P (MAP) 149/72 123/50 (74) 132/66 (88) Pulse Ox 100 100 O2 Delivery Ventilator Ventilator Mechanical Ventilator 01/16/21 01/16/21 01/16/21 01/16/21 20:00 20:24 21:00 21:23 Temp 98.7 98.7 Pulse 72 74 72 Resp 18 19 B/P (MAP) 140/63 (88) 140/63 (88) 132/66 Pulse Ox 100 100 100 O2 Delivery Ventilator Ventilator Ventilator 01/16/21 01/16/21 01/16/21 01/16/21 21:23 22:00 22:29 23:00 Pulse 72 64 86 Resp 19 20 B/P (MAP) 132/66 120/65 (83) 157/57 (90) Pulse Ox 100 100 100 O2 Delivery Ventilator Ventilator Ventilator 01/16/21 01/16/21 01/17/21 01/17/21 23:59 23:59 00:27 01:00 Temp 98.1 98.1 Pulse 78 79 Resp 20 17 B/P (MAP) 159/65 (96) 163/80 (107) Pulse Ox 100 100 100 O2 Delivery Ventilator Mechanical Ventilator Ventilator Ventilator 01/17/21 01/17/21 01/17/21 01/17/21 02:00 02:38 03:00 04:00 Pulse 83 84 Resp 17 16 B/P (MAP) 143/61 (88) 145/63 (90) Pulse Ox 100 100 100 O2 Delivery Ventilator Ventilator Ventilator Mechanical Ventilator 01/17/21 01/17/21 01/17/21 01/17/21 04:00 05:00 05:00 06:00 Temp 98.9 98.9 Pulse 78 67 75 Resp 17 18 17 B/P (MAP) 153/69 (97) 115/72 (86) 107/56 (73) Pulse Ox 100 100 100 100 O2 Delivery Ventilator Ventilator Ventilator Ventilator 01/17/21 01/17/21 01/17/21 01/17/21 07:00 07:55 08:00 08:00 Temp 99.4 99.4 Pulse 76 78 Resp 18 17 B/P (MAP) 109/55 (73) Pulse Ox 100 100 100 O2 Delivery Ventilator Ventilator Ventilator Mechanical Ventilator 01/17/21 01/17/21 01/17/21 01/17/21 08:09 08:10 08:10 08:11 Pulse 76 76 76 76 B/P (MAP) 188/56 188/56 188/55 188/55 01/17/21 01/17/21 01/17/21 01/17/21 09:00 09:42 10:00 11:00 Pulse 58 58 64 Resp 18 18 18 B/P (MAP) 99/44 (62) 144/52 (82) 155/61 (92) Pulse Ox 100 100 100 100 O2 Delivery Ventilator Ventilator Ventilator Ventilator 01/17/21 11:17 Pulse Ox 100 O2 Delivery Ventilator Intake and Output 01/16/21 01/16/21 01/17/21 15:00 23:00 07:00 Intake Total 57.5 ml 1735 ml 1379.5 ml Output Total 425 ml 475 ml 400 ml Balance -367.5 ml 1260 ml 979.5 ml Justicifation of Admission Dx: Justifications for Admission: Justification of Admission Dx: Yes SWATHI BOOTH MD Jan 17, 2021 12:01
[2021-01-17] MEDS ORDERED: INSULIN LISPRO 300 UNITS/3 ML VIAL. SQ PRN (13:45)
[2021-01-17] MEDS: ATORVASTATIN CALCIUM 40 MG TABLET. PO SCH (21:18)
[2021-01-17] MEDS: FAMOTIDINE 20 MG/2 ML VIAL IVP SCH (21:18)
[2021-01-18] VITALS (24 sets, daily range): BP systolic 98–198; BP diastolic 43–86
[2021-01-18] MEDS: HEPARIN for SUB-Q USE 5,000 UNIT/ML VIAL. SQ SCH ×3 (05:33→22:52)
--- NOTE | 2021-01-18 07:43 | PDOC ---
Infectious Disease Note Subjective Subjective Intubated , does not respond to any commands Now has constant twitching of right upper extremity Patient condition remains unchanged per discussion with RN Vital Sign Vital Signs Vital Signs Date Time Temp Pulse Resp B/P (MAP) Pulse Ox O2 Delivery O2 Flow Rate FiO2 01/18/21 06:05 100 Ventilator 01/18/21 05:55 74 19 144/64 (90) 01/18/21 04:00 98.8 98.8 Physical Exam PHYSICAL EXAM GENERAL: Intubated, opens eyes transiently, does not follow any commands HEENT: Normocephalic, atraumatic. Tongue protruded, ETT /OGT + NECK: Supple though fullness due to body habitus. LUNGS: Decreased breath sounds. No wheezing. HEART: S1, S2. Distant heart sounds. ABDOMEN: Obese. Bowel sounds present. EXTREMITIES: Minimal edema. No cyanosis. NEUROLOGIC: Intubated,right upper extremity twitching Left IJ clean Labs Lab Laboratory Tests Test 01/17/21 08:00 01/18/21 05:37 O2 Saturation 98 % (92-99) Arterial Blood pH 7.46 (7.35-7.45) Arterial Blood pCO2 at Patient Temp 45 mmHg (35-46) Arterial Blood pO2 at Patient Temp 114 mmHg (65-108) Arterial Blood HCO3 32 mmol/L (21-28) Arterial Blood Base Excess 7 mmol/L (-3-3) FiO2 35/vent Glucose (Fingerstick) 129 mg/dL (70-99) Micro Microbiology 01/06/21 Blood Culture - Final, Complete NO GROWTH AFTER 5 DAYS 01/05/21 Gram Stain Evaluation - Final, Complete 01/05/21 Respiratory Culture - Final, Complete 01/05/21 Antimicrobic Susceptibility - Final, Complete 01/04/21 Urine Culture - Final, Complete Objective Assessment 1. Fever. Resolved 2. Leukocytosis and lactic acidosis. Proving 3. Acute hypoxic respiratory failure. Status post intubation 4. Suspected aspiration pneumonia. Sputum culture positive for mssa 5. Status post cardiopulmonary arrest. 6. Questionable seizures. Encephalopathy 7. Diabetes mellitus 2. 8. Morbid obesity. 9. Obstructive sleep apnea. 10. Coronary artery disease. 11. Chronic kidney disease 12. Hypernatremia and hyperkalemia. 13 Gram-positive bacteremia bacteremia 2 out of 4 bottles present on admission staph epidermidis Plan Plan of Care 1. off antibiotics 2. supportive care Follow-up repeat blood cultures 01/06 negative so far 3. Continue supportive care. 4. Critically ill. 5. Prognosis poor. need hospice Discussed with nursing staff will s/o , please call if questions JENNY CRUZ MD Jan 18, 2021 07:43
[2021-01-18 08:21] LABS: BASE EXCESS ABG 5 mmol/L (-3-3); HCO3 ABG 30 mmol/L (21-28); PCO2 ABG 45 mmHg (35-46); PO2 ABG 128 mmHg (65-108); SAT O2 ABG 98 % (92-99)
[2021-01-18 08:21] LABS: CREATININE 1.2 mg/dL (0.6-1.0); GFR 55.1; PHOSPHORUS 3.8 mg/dL (2.6-4.7)
--- NOTE | 2021-01-18 08:40 | PDOC ---
PULMONARY PROGRESS NOTES DATE: 01/18/21 TIME: 08:40 Subjective Pt. remains on vent support AC mode Vitals Vital Signs Date Time Temp Pulse Resp B/P (MAP) Pulse Ox O2 Delivery O2 Flow Rate FiO2 01/18/21 08:12 100 Ventilator 01/18/21 08:00 99.1 64 18 121/43 (69) 99.1 Comments unable to obtain 2 clinical state HEENT: Other (nc at perrl nose clear orally intubated neck no lad no thyromegaly ) Lungs: Crackles Cardiovascular: S1, S2 Abdomen: Soft, Non-tender, Other (no mass obese) Extremities: Other (edema) Skin: Warm Labs Laboratory Tests Test 01/16/21 23:52 01/17/21 05:45 01/17/21 08:00 01/18/21 05:37 Glucose (Fingerstick) 123 mg/dL (70-99) 143 mg/dL (70-99) 129 mg/dL (70-99) O2 Saturation 98 % (92-99) Arterial Blood pH 7.46 (7.35-7.45) Arterial Blood pCO2 at Patient Temp 45 mmHg (35-46) Arterial Blood pO2 at Patient Temp 114 mmHg (65-108) Arterial Blood HCO3 32 mmol/L (21-28) Arterial Blood Base Excess 7 mmol/L (-3-3) FiO2 35/vent Test 01/18/21 07:25 Sodium Level 144 mmol/L (136-145) Potassium Level 4.0 mmol/L (3.5-5.1) Chloride Level 107 mmol/L (98-107) Carbon Dioxide Level 32 mmol/L (21-32) Anion Gap 5 (6-14) Blood Urea Nitrogen 20 mg/dL (7-20) Creatinine 1.2 mg/dL (0.6-1.0) Estimated GFR (Cockcroft-Gault) 55.1 Glucose Level 121 mg/dL (70-99) Calcium Level 9.0 mg/dL (8.5-10.1) Phosphorus Level 3.8 mg/dL (2.6-4.7) Laboratory Tests Test 01/18/21 05:37 01/18/21 07:25 Glucose (Fingerstick) 129 mg/dL (70-99) Sodium Level 144 mmol/L (136-145) Potassium Level 4.0 mmol/L (3.5-5.1) Chloride Level 107 mmol/L (98-107) Carbon Dioxide Level 32 mmol/L (21-32) Anion Gap 5 (6-14) Blood Urea Nitrogen 20 mg/dL (7-20) Creatinine 1.2 mg/dL (0.6-1.0) Estimated GFR (Cockcroft-Gault) 55.1 Glucose Level 121 mg/dL (70-99) Calcium Level 9.0 mg/dL (8.5-10.1) Phosphorus Level 3.8 mg/dL (2.6-4.7) Medications Active Scripts Medications Dose Route/Sig Max Daily Dose Days Date Category Dose Instructions Voltaren (Diclofenac Sodium) 100 Gm Gel..gram. 1 Gm TP QID 30 12/10/20 Reported apply to affected area(s) Oxycodone Hcl 5 Mg Capsule 5 Mg PO PRN Q6HRS PRN 12/08/20 Reported Nystatin 15 Gm Powder 1 [place] TP BID 7 12/08/20 Reported apply to affected area(s) Ondansetron Odt (Ondansetron) 4 Mg Tab.rapdis 1 Tab PO PRN Q8HRS PRN 11/05/20 Reported Reglan (Metoclopramide Hcl) 10 Mg Tablet 1 Tab PO QID 30 11/05/20 Reported before food and bedtime Pantoprazole Sodium (Pantoprazole Sodium) 40 Mg Tablet.dr 40 Mg PO BIDAC 30 06/21/20 Rx Losartan Potassium 100 Mg Tablet 100 Mg PO DAILY 05/03/20 Reported Aspirin 325 Mg Tablet 1 Tab PO DAILY 05/03/20 Reported Metformin Hcl 500 Mg Tablet 500 Mg PO BIDWMEALS 05/03/20 Reported Bumetanide 1 Mg Tablet 1 Mg PO BID 04/02/20 Reported Insulin Aspart 100 Unit/1 Ml Vial 60 Unit SQ TIDAC 04/02/20 Reported novolg flex pen Isosorbide Mononitrate Er (Isosorbide Mononitrate) 120 Mg Tab.er.24h 120 Mg PO DAILY 04/02/20 Reported NITROGLYCERIN SubLingual (Nitroglycerin) 0.4 Mg Tab.subl 0.4 Mg SL PRN Q5MIN PRN 04/02/20 Reported Albuterol Sulfate Neb Soln (Albuterol Sulfate) 2.5 Mg/3 Ml Vial.neb 2.5 Mg NEB Q4-6HRS PRN 04/02/20 Reported Levemir Flextouch (Insulin Detemir) 100 Unit/1 Ml Insuln.pen 60 Unit SQ HS 04/02/20 Reported Hydralazine Hcl 25 Mg Tablet 25 Mg PO BID 04/02/20 Reported Fluticasone Propionate Nasal [place] (Fluticasone Propionate) 16 Gm [place].susp 2 [place] NS DAILY 06/18/19 Reported Zolpidem Tartrate 5 Mg Tablet 5 Mg PO PRN QHS PRN 06/18/19 Reported Amlodipine Besylate 10 Mg Tablet 10 Mg PO DAILY 06/18/19 Reported Gabapentin 600 Mg Tablet 600 Mg PO BID 06/18/19 Reported Potassium Chloride (Potassium Chloride) 20 Meq Tablet.er 20 Meq PO BID 06/18/19 Reported Clopidogrel (Clopidogrel Bisulfate) 75 Mg Tablet 75 Mg PO DAILYWBKFT 75 11/10/17 Rx Proair Respiclick (Albuterol Sulfate) 90 Mcg Aer.pow.ba 2 Puff IH PRN Q4-6HRS PRN 09/08/16 Reported Cyclobenzaprine Hcl 10 Mg Tablet 1 Tab PO BID PRN 09/08/16 Reported Requip (Ropinirole Hcl) 1 Mg Tablet 1 Tab PO QHS 09/08/16 Reported Crestor (Rosuvastatin Calcium) 20 Mg Tablet 20 Mg PO HS 10/02/15 Reported LAST DOSE: 10/01/15 BEDTIME NEXT DOSE: 10/02/15 BEDTIME Oxybutynin Chloride 5 Mg Tablet 1 Tab PO DAILY 10/02/15 Reported LAST DOSE: 10/02/15 AM NEXT DOSE: 10/03/15 AM Comments CXR 01/10/21 IMPRESSION: Resolution of left pleural effusion. Unchanged bilateral opacities. CXR 01/07 IMPRESSION: 1. Diffuse interstitial prominence may be seen with interstitial pulmonary edema or atypical infectious/inflammatory process. 2. Support lines and tubes as above. 3. Mild cardiomegaly. Impression . 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 Echo 12/2019 with LVEF 45%, improved on cath on 12/07 Coronary artery disease with recent -- cath 12/07 showed patent long stented proximal to distal LAD. No lesions needing intervention were noted. Echo with LVEF 55 to 60%. Type 2 diabetes. Chronic obstructive pulmonary disease. Morbid obesity. Hypertension. Obstructive sleep apnea. MIRIAM cr trending down Plan . UPDATED 01/18/21 No clinical change Continue current vent support in AC mode --setting reviewed Follow ABG/CXR-- no change Follow surgery recs-- Trach planned for 01/22/21 Follow Nephrology recs--depakote, seizure precautions DVT/GI PPX-- sub q heparin D/W RN and RT FULL CODE neurology D/W family again today, remains aggressive care UPDATED 01/17/21 No clinical change Continue current vent support in AC mode --setting reviewed Follow ABG/CXR-- no change Follow ID recs--now off ABX Follow surgery recs-- Trach planned for 01/22/21 Follow GI recs- planned for PEG Follow Nephrology recs--depakote, seizure precautions DVT/GI PPX-- sub q heparin D/W RN and RT FULL CODE UPDATED 01/16/21 No clinical change Continue current vent support in AC mode -- Follow ID recs--now off ABX Follow surgery recs-- Trach planned Follow GI recs- planned for PEG Follow cardiology recs--no further work at this time Follow Nephrology recs--depakote, seizure precautions DVT/GI PPX-- sub q heparin D/W RN and RT FULL CODE UPDATED 01/15/21 Continue current vent support in AC mode --12/450/40% and PEEP of 5 Follow ID recs--now off ABX Follow surgery recs-- recommends comfort measures, considering trach 01/22/21 Follow GI recs- planned for PEG this week Follow cardiology recs--no further work at this time Follow Nephrology recs--depakote, seizure precautions DVT/GI PPX-- sub q heparin Social work for DC planning D/W RN and RT FULL CODE RAF CADET MD Jan 18, 2021 08:40
[2021-01-18] MEDS: ISOSORBIDE MONONITRATE 20 MG TABLET PO SCH ×2 (09:00→14:00)
[2021-01-18] MEDS: METOPROLOL TART IMMED RELEASE 25 MG TABLET. PO SCH ×2 (09:00→20:45)
[2021-01-18] MEDS: hydrALAZINE 25 MG TABLET PO SCH ×2 (09:00→20:45)
--- NOTE | 2021-01-18 09:11 | PDOC ---
SURGICAL PROGRESS NOTE DATE: 01/18/21 TIME: 09:06 Subjective Pt appears stable Vital Signs Vital Signs Date Time Temp Pulse Resp B/P (MAP) Pulse Ox O2 Delivery O2 Flow Rate FiO2 01/18/21 08:12 100 Ventilator 01/18/21 08:00 99.1 64 18 121/43 (69) 99.1 I&O Intake and Output 01/18/21 07:00 Intake Total 991.0 ml Output Total 1250 ml Balance -259.0 ml IV Total 115.0 ml Tube Feeding 545 ml Other 331 ml Output Urine Total 1250 ml # Bowel Movements 1 General: No acute distress HEENT: Other (orally intubated) Labs Laboratory Tests Test 01/16/21 23:52 01/17/21 05:45 01/17/21 08:00 01/18/21 05:37 Glucose (Fingerstick) 123 mg/dL (70-99) 143 mg/dL (70-99) 129 mg/dL (70-99) O2 Saturation 98 % (92-99) Arterial Blood pH 7.46 (7.35-7.45) Arterial Blood pCO2 at Patient Temp 45 mmHg (35-46) Arterial Blood pO2 at Patient Temp 114 mmHg (65-108) Arterial Blood HCO3 32 mmol/L (21-28) Arterial Blood Base Excess 7 mmol/L (-3-3) FiO2 35/vent Test 01/18/21 07:25 Sodium Level 144 mmol/L (136-145) Potassium Level 4.0 mmol/L (3.5-5.1) Chloride Level 107 mmol/L (98-107) Carbon Dioxide Level 32 mmol/L (21-32) Anion Gap 5 (6-14) Blood Urea Nitrogen 20 mg/dL (7-20) Creatinine 1.2 mg/dL (0.6-1.0) Estimated GFR (Cockcroft-Gault) 55.1 Glucose Level 121 mg/dL (70-99) Calcium Level 9.0 mg/dL (8.5-10.1) Phosphorus Level 3.8 mg/dL (2.6-4.7) Laboratory Tests Test 01/18/21 05:37 01/18/21 07:25 Glucose (Fingerstick) 129 mg/dL (70-99) Sodium Level 144 mmol/L (136-145) Potassium Level 4.0 mmol/L (3.5-5.1) Chloride Level 107 mmol/L (98-107) Carbon Dioxide Level 32 mmol/L (21-32) Anion Gap 5 (6-14) Blood Urea Nitrogen 20 mg/dL (7-20) Creatinine 1.2 mg/dL (0.6-1.0) Estimated GFR (Cockcroft-Gault) 55.1 Glucose Level 121 mg/dL (70-99) Calcium Level 9.0 mg/dL (8.5-10.1) Phosphorus Level 3.8 mg/dL (2.6-4.7) Problem List Problems Medical Problems: (1) Acute renal failure Status: Acute (2) Altered mental status Status: Acute (3) Aspiration pneumonia Status: Acute (4) Hyperkalemia Status: Acute (5) Respiratory failure Status: Acute (6) Sepsis Status: Acute Assessment/Plan Respiratory failure d/w neurology whom had mike discussion with family. Family to consider. Pt tentatively planned for trach on 01/22 at 0900 Justicifation of Admission Dx: Justifications for Admission: Justification of Admission Dx: Yes ERUM GREEN MD Jan 18, 2021 09:11
[2021-01-18 09:20] LABS: FIO2 ABG 35/VENT
--- NOTE | 2021-01-18 09:45 | PDOC ---
PROGRESS NOTES Date of Service DATE: 01/18/21 TIME: 09:43 Assessment Problems Medical Problems: (1) Acute renal failure Status: Acute (2) Altered mental status Status: Acute (3) Aspiration pneumonia Status: Acute (4) Hyperkalemia Status: Acute (5) Respiratory failure Status: Acute (6) Sepsis Status: Acute Metabolic encephalopathy, only has basic brainstem reflexes PLEDS and burst-suppression on EEG Respiratory failure, aspiration pneumonia, possible sepsis Acute STEMI, coronary artery disease status post stenting, chronic obstructive pulmonary disease, asthma, congestive heart failure, morbid obesity, renal failure, hyperkalemia, severe protein malnutrition, hypertensive urgency, hyperlipidemia, type 2 diabetes, obstructive sleep apnea, restless leg syndrome, peripheral neuropathy Plan For the first time, I was able to speak to the son, Lance. I outlined the very poor prognosis and answered his questions. I get the impression he is reconsidering the trach for next week, he says that he will get back to us "soon." Continue treating medical issues Aggressive treatment of the seizure activity is unlikely to affect outcome and would cloud the examination. Continue IV Depacon Overall prognosis is poor, but patient is not brain Subjective None Objective Vital Signs Date Time Temp Pulse Resp B/P (MAP) Pulse Ox O2 Delivery O2 Flow Rate FiO2 01/18/21 08:12 100 Ventilator 01/18/21 08:00 99.1 64 18 121/43 (69) 99.1 Intake and Output 01/18/21 07:00 Intake Total 991.0 ml Output Total 1250 ml Balance -259.0 ml IV Total 115.0 ml Tube Feeding 545 ml Other 331 ml Output Urine Total 1250 ml # Bowel Movements 1 PHYSICAL EXAM No response to pain Triggers ventilator Does have myoclonic movements of right hand Pupils unreactive EOMI. roving eye movements CN: no focal findings. Muscle tone: normal. Muscle strength: No response DTR: 1+ Plantar reflex: Silent Gait: not examined Sensory exam: Not cooperative. Cerebellar: Not cooperative Review of Relevant I have reviewed the following items shady (where applicable) has been applied. Labs Laboratory Tests Test 01/16/21 23:52 01/17/21 05:45 01/17/21 08:00 01/18/21 05:37 Glucose (Fingerstick) 123 mg/dL (70-99) 143 mg/dL (70-99) 129 mg/dL (70-99) O2 Saturation 98 % (92-99) Arterial Blood pH 7.46 (7.35-7.45) Arterial Blood pCO2 at Patient Temp 45 mmHg (35-46) Arterial Blood pO2 at Patient Temp 114 mmHg (65-108) Arterial Blood HCO3 32 mmol/L (21-28) Arterial Blood Base Excess 7 mmol/L (-3-3) FiO2 35/vent Test 01/18/21 07:25 01/18/21 08:00 Sodium Level 144 mmol/L (136-145) Potassium Level 4.0 mmol/L (3.5-5.1) Chloride Level 107 mmol/L (98-107) Carbon Dioxide Level 32 mmol/L (21-32) Anion Gap 5 (6-14) Blood Urea Nitrogen 20 mg/dL (7-20) Creatinine 1.2 mg/dL (0.6-1.0) Estimated GFR (Cockcroft-Gault) 55.1 Glucose Level 121 mg/dL (70-99) Calcium Level 9.0 mg/dL (8.5-10.1) Phosphorus Level 3.8 mg/dL (2.6-4.7) O2 Saturation 98 % (92-99) Arterial Blood pH 7.44 (7.35-7.45) Arterial Blood pCO2 at Patient Temp 45 mmHg (35-46) Arterial Blood pO2 at Patient Temp 128 mmHg (65-108) Arterial Blood HCO3 30 mmol/L (21-28) Arterial Blood Base Excess 5 mmol/L (-3-3) FiO2 35/vent Laboratory Tests Test 01/18/21 05:37 01/18/21 07:25 01/18/21 08:00 Glucose (Fingerstick) 129 mg/dL (70-99) Sodium Level 144 mmol/L (136-145) Potassium Level 4.0 mmol/L (3.5-5.1) Chloride Level 107 mmol/L (98-107) Carbon Dioxide Level 32 mmol/L (21-32) Anion Gap 5 (6-14) Blood Urea Nitrogen 20 mg/dL (7-20) Creatinine 1.2 mg/dL (0.6-1.0) Estimated GFR (Cockcroft-Gault) 55.1 Glucose Level 121 mg/dL (70-99) Calcium Level 9.0 mg/dL (8.5-10.1) Phosphorus Level 3.8 mg/dL (2.6-4.7) O2 Saturation 98 % (92-99) Arterial Blood pH 7.44 (7.35-7.45) Arterial Blood pCO2 at Patient Temp 45 mmHg (35-46) Arterial Blood pO2 at Patient Temp 128 mmHg (65-108) Arterial Blood HCO3 30 mmol/L (21-28) Arterial Blood Base Excess 5 mmol/L (-3-3) FiO2 35/vent Microbiology 01/06/21 Blood Culture - Final, Complete NO GROWTH AFTER 5 DAYS 01/05/21 Gram Stain Evaluation - Final, Complete 01/05/21 Respiratory Culture - Final, Complete 01/05/21 Antimicrobic Susceptibility - Final, Complete 01/04/21 Urine Culture - Final, Complete Medications Current Medications Amiodarone HCl 450 mg/Dextrose 259 ml @ 33 mls/hr 1X ONCE IV Last administered on 01/04/21at 11:40; Start 01/04/21 at 11:15; Stop 01/04/21 at 19:05; Status DC Midazolam HCl 100 ml @ 1 mls/hr 1X ONCE IV Last administered on 01/04/21at 11:39; Start 01/04/21 at 11:30; Stop 01/05/21 at 09:51; Status DC Sodium Chloride 1,000 ml @ 1,000 mls/hr 1X ONCE IV Last administered on 01/04/21at 12:13; Start 01/04/21 at 11:45; Stop 01/04/21 at 12:44; Status DC Sodium Bicarbonate (Sodium Bicarb Adult 8.4% Syr) 50 meq 1X ONCE IV Last administered on 01/04/21at 12:55; Start 01/04/21 at 12:00; Stop 01/04/21 at 12:01; Status DC Dextrose (Dextrose 50%-Water Syringe) 25 gm 1X ONCE IV Last administered on 01/04/21at 12:53; Start 01/04/21 at 12:00; Stop 01/04/21 at 12:01; Status DC Insulin Human Regular (HumuLIN R VIAL) 10 unit 1X ONCE IV Last administered on 01/04/21at 12:52; Start 01/04/21 at 12:00; Stop 01/04/21 at 12:01; Status DC Piperacillin Sod/ Tazobactam Sod 3.375 gm/Sodium Chloride 50 ml @ 100 mls/hr 1X ONCE IV Last administered on 01/04/21at 12:12; Start 01/04/21 at 12:00; Stop 01/04/21 at 12:29; Status DC Succinylcholine Chloride (Anectine) 100 mg 1X ONCE IV Last administered on 01/04/21at 11:03; Start 01/04/21 at 12:45; Stop 01/04/21 at 12:46; Status DC Etomidate (Amidate) 20 mg 1X ONCE IV Last administered on 01/04/21at 11:02; Start 01/04/21 at 12:45; Stop 01/04/21 at 12:46; Status DC Rocuronium [place] (Zemuron) 100 mg 1X ONCE IV ; Start 01/04/21 at 12:45; Stop 01/04/21 at 12:46; Status Cancel Midazolam HCl (Versed) 5 mg 1X ONCE IV Last administered on 01/04/21at 11:30; Start 01/04/21 at 12:45; Stop 01/04/21 at 12:46; Status DC Rocuronium [place] (Zemuron) 100 mg 1X ONCE IV Last administered on 01/04/21at 11:33; Start 01/04/21 at 12:45; Stop 01/04/21 at 12:46; Status DC Ondansetron HCl (Zofran) 4 mg PRN Q8HRS PRN IV NAUSEA/VOMITING; Start 01/04/21 at 13:00; Stop 01/05/21 at 09:48; Status DC Sodium Chloride 1,000 ml @ 100 mls/hr Q10H IV Last administered on 01/05/21at 09:41; Start 01/04/21 at 13:00; Stop 01/05/21 at 12:59; Status DC Ondansetron HCl (Zofran) 4 mg PRN Q6HRS PRN IVP NAUSEA/VOMITING; Start 01/04/21 at 14:00 Famotidine (Pepcid Vial) 20 mg QHS IVP Last administered on 01/17/21at 21:18; Start 01/04/21 at 21:00 Heparin Sodium (Porcine) (Heparin Sodium) 5,000 unit Q8HRS SQ Last administered on 01/18/21at 05:33; Start 01/04/21 at 14:00 Sodium Chloride (Normal Saline Flush) 3 ml QSHIFT PRN IV AFTER MEDS AND BLOOD DRAWS; Start 01/04/21 at 14:00 Bisacodyl (Dulcolax Supp) 10 mg PRN DAILY PRN MD CONSTIPATION; Start 01/04/21 at 14:00 Piperacillin Sod/ Tazobactam Sod (Zosyn Per Pharmacy) 1 each PRN DAILY PRN MC SEE COMMENTS; Start 01/04/21 at 14:00; Stop 01/04/21 at 17:48; Status DC Piperacillin Sod/ Tazobactam Sod 2.25 gm/Sodium Chloride 50 ml @ 100 mls/hr Q6HRS IV ; Start 01/04/21 at 18:00; Stop 01/04/21 at 17:49; Status DC Dextrose (Dextrose 50%-Water Syringe) 25 gm 1X ONCE IV Last administered on 01/04/21at 16:21; Start 01/04/21 at 16:15; Stop 01/04/21 at 16:16; Status DC Meropenem 500 mg/ Sodium Chloride 50 ml @ 100 mls/hr Q8HRS IV ; Start 01/04/21 at 18:00; Status Cancel Piperacillin Sod/ Tazobactam Sod 2.25 gm/Sodium Chloride 50 ml @ 100 mls/hr Q8HRS IV Last administered on 01/08/21at 06:01; Start 01/04/21 at 22:00; Stop 01/08/21 at 07:50; Status DC Linezolid/Dextrose 300 ml @ 300 mls/hr Q12HR IV Last administered on 01/07/21at 21:23; Start 01/04/21 at 21:00; Stop 01/08/21 at 10:41; Status DC Valproic Acid 500 mg/Dextrose 55 ml @ 55 mls/hr Q12HR IV Last administered on 01/05/21at 09:40; Start 01/05/21 at 09:00; Stop 01/05/21 at 17:28; Status DC Valproic Acid 1000 mg/Dextrose 60 ml @ 60 mls/hr 1X ONCE IV Last administered on 01/04/21at 19:30; Start 01/04/21 at 19:30; Stop 01/04/21 at 20:29; Status DC Lorazepam (Ativan Inj) 2 mg PRN Q2HRS PRN IVP ANXIETY / AGITATION Last administered on 01/05/21at 23:30; Start 01/04/21 at 19:30; Stop 01/08/21 at 08:16; Status DC Hydralazine HCl (Apresoline Inj) 10 mg PRN Q6HRS PRN IVP ELEVATED BP, SEE COMMENTS Last administered on 01/15/21at 23:52; Start 01/04/21 at 19:45 Amiodarone HCl 450 mg/Dextrose 259 ml @ 33 mls/hr CONT PRN IV SEE I/O RECORD Last administered on 01/05/21at 11:50; Start 01/04/21 at 20:15; Stop 01/05/21 at 11:50; Status DC Midazolam HCl 100 ml @ 1 mls/hr CONT PRN IV SEE I/O RECORD Last administered on 01/05/21at 02:00; Start 01/05/21 at 02:00; Stop 01/08/21 at 08:16; Status DC Daptomycin 600 mg/ Sodium Chloride 50 ml @ 100 mls/hr Q48H IV Last administered on 01/07/21at 15:40; Start 01/05/21 at 16:00; Stop 01/08/21 at 07:52; Status DC Scopolamine (Transderm-Scop) 1 patch Q3DAYS TD Last administered on 01/08/21at 08:08; Start 01/05/21 at 17:00; Stop 01/08/21 at 08:16; Status DC Valproic Acid 750 mg/Dextrose 57.5 ml @ 57.5 mls/hr Q12HR IV Last administered on 01/17/21at 21:18; Start 01/05/21 at 21:00 Insulin Human Lispro (HumaLOG) 0-5 UNITS TIDWMEALS SQ Last administered on 01/05/21at 18:27; Start 01/05/21 at 18:30; Stop 01/06/21 at 08:42; Status DC Dextrose (Dextrose 50%-Water Syringe) 12.5 gm PRN Q15MIN PRN IV SEE COMMENTS; Start 01/05/21 at 18:15 Amiodarone HCl 450 mg/Dextrose 259 ml @ 0 mls/hr 1X ONCE IV Last administered on 01/06/21at 02:00; Start 01/06/21 at 02:00; Stop 01/06/21 at 02:01; Status DC Insulin Human Lispro (HumaLOG) 0-5 UNITS Q6HRS SQ ; Start 01/06/21 at 12:00; Stop 01/17/21 at 13:40; Status DC Amiodarone HCl 450 mg/Dextrose 259 ml @ 0 mls/hr 1X ONCE IV Last administered on 01/06/21at 17:05; Start 01/06/21 at 17:00; Stop 01/06/21 at 17:01; Status DC Amiodarone HCl (Cordarone) 400 mg DAILY PO ; Start 01/07/21 at 14:00; Stop 01/07/21 at 13:15; Status DC Multi-Ingred Cream/Lotion/Oil/ Oint (Artificial Tears Eye Ointment) 1 chio PRN Q1HR PRN OU DRY EYE Last administered on 01/07/21at 14:14; Start 01/07/21 at 13:00 Aspirin (Blessing Aspirin) 325 mg DAILY PO Last administered on 01/08/21at 08:12; Start 01/08/21 at 09:00; Stop 01/09/21 at 09:16; Status DC Clopidogrel Bisulfate (Plavix) 75 mg DAILYWBKFT PO Last administered on 01/17/21at 08:10; Start 01/08/21 at 08:00 Hydralazine HCl (Apresoline) 25 mg BID PO Last administered on 01/17/21at 21:19; Start 01/07/21 at 21:00 Metoprolol Succinate (Toprol Xl) 25 mg DAILY PO ; Start 01/08/21 at 09:00; Stop 01/08/21 at 07:44; Status DC Isosorbide Mononitrate (Imdur) 120 mg DAILY PO ; Start 01/08/21 at 09:00; Stop 01/08/21 at 08:16; Status DC Losartan Potassium (Cozaar) 100 mg DAILY PO Last administered on 01/17/21at 08:09; Start 01/08/21 at 09:00 Atorvastatin Calcium (Lipitor) 80 mg QHS PO Last administered on 01/17/21at 21:18; Start 01/07/21 at 21:00 Epinephrine HCl (EPINEPHrine SYRINGE) 2 mg STK-MED ONCE .ROUTE ; Start 01/04/21 at 11:00; Stop 01/07/21 at 17:12; Status DC Amiodarone HCl (Cordarone) 300 mg STK-MED ONCE .ROUTE ; Start 01/04/21 at 11:00; Stop 01/07/21 at 17:12; Status DC Metoprolol Tartrate (Lopressor) 12.5 mg BID PO Last administered on 01/17/21at 21:19; Start 01/08/21 at 09:00 Piperacillin Sod/ Tazobactam Sod 3.375 gm/Sodium Chloride 50 ml @ 100 mls/hr Q6HRS IV Last administered on 01/15/21at 05:29; Start 01/08/21 at 12:00; Stop 01/15/21 at 07:56; Status DC Daptomycin 600 mg/ Sodium Chloride 50 ml @ 100 mls/hr Q24H IV Last administered on 01/11/21at 15:56; Start 01/08/21 at 16:00; Stop 01/12/21 at 09:34; Status DC Isosorbide Mononitrate (Ismo) 20 mg [id number] PO Last administered on 01/17/21at 13:46; Start 01/08/21 at 09:00 Aspirin (Aspirin Chewable) 81 mg DAILYWBKFT PO Last administered on 01/17/21at 08 :08; Start 01/08/21 at 08:30 Glycopyrrolate (Robinul) 1 mg PRN DAILY PRN IV Secretions Last administered on 01/13/21at 09:13; Start 01/08/21 at 08:45 Potassium Chloride/Water 100 ml @ 100 mls/hr Q1H IV Last administered on 01/08/21at 13:37; Start 01/08/21 at 12:00; Stop 01/08/21 at 13:59; Status DC Potassium Bicarbonate (Potassium Effervescent Tablet) 40 meq 1X ONCE PEG Last administered on 01/09/21at 11:02; Start 01/09/21 at 09:30; Stop 01/09/21 at 09:31; Status DC Potassium Bicarbonate (Potassium Effervescent Tablet) 40 meq 1X ONCE PO Last administered on 01/10/21at 07:19; Start 01/10/21 at 08:00; Stop 01/10/21 at 08:01; Status DC Furosemide (Lasix) 40 mg 1X ONCE IVP Last administered on 01/10/21at 17:48; Start 01/10/21 at 17:45; Stop 01/10/21 at 17:46; Status DC Potassium Bicarbonate (Potassium Effervescent Tablet) 40 meq 1X ONCE PEG Last administered on 01/10/21at 19:15; Start 01/10/21 at 19:00; Stop 01/10/21 at 19:01; Status DC Insulin Human Lispro (HumaLOG) 0-5 UNITS PRN Q6HRS PRN SQ SEE COMMENTS; Start 01/17/21 at 13:45 Active Scripts Active Promethazine Hcl 12.5 Mg Tablet 12.5 Mg PO PRN Q6HRS PRN 30 Days Metoprolol Succinate ( Xl ) (Metoprolol Succinate) 25 Mg Tab.er.24h 25 Mg PO DAILY 30 Days Pantoprazole Sodium (Pantoprazole Sodium) 40 Mg Tablet.dr 40 Mg PO BIDAC 30 Days Clopidogrel (Clopidogrel Bisulfate) 75 Mg Tablet 75 Mg PO DAILYWBKFT 75 Days Reported Voltaren (Diclofenac Sodium) 100 Gm Gel..gram. 1 Gm TP QID 30 Days apply to affected area(s) Nystatin 15 Gm Powder 1 [place] TP BID 7 Days apply to affected area(s) Ondansetron Odt (Ondansetron) 4 Mg Tab.rapdis 1 Tab PO PRN Q8HRS PRN Reglan (Metoclopramide Hcl) 10 Mg Tablet 1 Tab PO QID 30 Days before food and bedtime Losartan Potassium 100 Mg Tablet 100 Mg PO DAILY Aspirin 325 Mg Tablet 1 Tab PO DAILY Metformin Hcl 500 Mg Tablet 500 Mg PO BIDWMEALS Bumetanide 1 Mg Tablet 1 Mg PO BID Insulin Aspart 100 Unit/1 Ml Vial 60 Unit SQ TIDAC novolg flex pen Isosorbide Mononitrate Er (Isosorbide Mononitrate) 120 Mg Tab.er.24h 120 Mg PO DAILY NITROGLYCERIN SubLingual (Nitroglycerin) 0.4 Mg Tab.subl 0.4 Mg SL PRN Q5MIN PRN Albuterol Sulfate Neb Soln (Albuterol Sulfate) 2.5 Mg/3 Ml Vial.neb 2.5 Mg NEB Q4-6HRS PRN Levemir Flextouch (Insulin Detemir) 100 Unit/1 Ml Insuln.pen 60 Unit SQ HS Hydralazine Hcl 25 Mg Tablet 25 Mg PO BID Fluticasone Propionate Nasal [place] (Fluticasone Propionate) 16 Gm [place].susp 2 [place] NS DAILY Zolpidem Tartrate 5 Mg Tablet 5 Mg PO PRN QHS PRN Amlodipine Besylate 10 Mg Tablet 10 Mg PO DAILY Gabapentin 600 Mg Tablet 600 Mg PO BID Potassium Chloride (Potassium Chloride) 20 Meq Tablet.er 20 Meq PO BID Proair Respiclick (Albuterol Sulfate) 90 Mcg Aer.pow.ba 2 Puff IH PRN Q4-6HRS PRN Cyclobenzaprine Hcl 10 Mg Tablet 1 Tab PO BID PRN Requip (Ropinirole Hcl) 1 Mg Tablet 1 Tab PO QHS Crestor (Rosuvastatin Calcium) 20 Mg Tablet 20 Mg PO HS LAST DOSE: 10/01/15 BEDTIME NEXT DOSE: 10/02/15 BEDTIME Oxybutynin Chloride 5 Mg Tablet 1 Tab PO DAILY LAST DOSE: 10/02/15 AM NEXT DOSE: 10/03/15 AM Vitals/I & O Vital Sign - Last 24 Hours 01/17/21 01/17/21 01/17/21 01/17/21 10:00 11:00 11:17 12:00 Pulse 58 64 Resp 18 18 B/P (MAP) 144/52 (82) 155/61 (92) Pulse Ox 100 100 100 O2 Delivery Ventilator Ventilator Ventilator Mechanical Ventilator 01/17/21 01/17/21 01/17/21 01/17/21 12:00 13:00 13:46 14:00 Temp 99.2 99.2 Pulse 62 64 64 70 Resp 17 18 18 B/P (MAP) 160/74 (102) 125/56 (79) 125/56 140/51 (80) Pulse Ox 100 100 100 O2 Delivery Ventilator Ventilator Ventilator 01/17/21 01/17/21 01/17/21 01/17/21 14:26 15:00 15:56 16:00 Temp 99.4 99.4 Pulse 84 71 Resp 18 17 B/P (MAP) 188/73 (111) 135/49 (77) Pulse Ox 100 100 100 100 O2 Delivery Ventilator Ventilator Ventilator Ventilator 01/17/21 01/17/21 01/17/21 01/17/21 16:03 17:00 18:00 18:11 Pulse 71 84 Resp 18 18 B/P (MAP) 119/61 (80) 114/53 (73) Pulse Ox 100 100 99 O2 Delivery Mechanical Ventilator Ventilator Ventilator Ventilator 01/17/21 01/17/21 01/17/21 01/17/21 20:00 20:00 20:00 20:50 Temp 99.0 99.0 Pulse 72 81 Resp 17 18 B/P (MAP) 145/87 (106) 129/68 (88) Pulse Ox 99 99 98 O2 Delivery Ventilator Ventilator Mechanical Ventilator Ventilator 01/17/21 01/17/21 01/17/21 01/17/21 21:00 21:19 21:19 22:00 Pulse 72 81 81 78 Resp 18 18 B/P (MAP) 149/61 (90) 129/68 129/68 135/65 (88) Pulse Ox 100 100 O2 Delivery Ventilator Ventilator 01/17/21 01/17/21 01/17/21 01/18/21 23:00 23:59 23:59 00:18 Temp 98.4 98.4 Pulse 74 78 Resp 16 16 B/P (MAP) 140/64 (89) 135/66 (89) Pulse Ox 100 100 100 O2 Delivery Ventilator Ventilator Mechanical Ventilator Ventilator 01/18/21 01/18/21 01/18/21 01/18/21 01:05 02:00 03:00 04:00 Temp 98.8 98.8 Pulse 76 76 76 99 Resp 16 16 18 18 B/P (MAP) 152/68 (96) 144/63 (90) 154/58 (90) 119/48 (71) Pulse Ox 100 100 99 100 O2 Delivery Ventilator Ventilator Ventilator Ventilator 01/18/21 01/18/21 01/18/21 01/18/21 04:00 04:03 05:00 05:55 Pulse 75 74 Resp 19 19 B/P (MAP) 145/65 (91) 144/64 (90) Pulse Ox 100 99 99 O2 Delivery Mechanical Ventilator Ventilator Ventilator Ventilator 01/18/21 01/18/21 01/18/21 01/18/21 06:05 07:00 08:00 08:00 Temp 99.1 99.1 Pulse 69 64 Resp 18 18 B/P (MAP) 155/75 (101) 121/43 (69) Pulse Ox 100 100 100 O2 Delivery Ventilator Ventilator Mechanical Ventilator Ventilator 01/18/21 08:12 Pulse Ox 100 O2 Delivery Ventilator Intake and Output 01/17/21 01/17/21 01/18/21 15:00 23:00 07:00 Intake Total 57.5 ml 654 ml 279.5 ml Output Total 475 ml 550 ml 225 ml Balance -417.5 ml 104 ml 54.5 ml Justicifation of Admission Dx: Justifications for Admission: Justification of Admission Dx: Yes SWATHI BOOTH MD Jan 18, 2021 09:45
--- NOTE | 2021-01-18 11:28 | PDOC ---
Renal-Progress Notes Subjective Notes Notes REMAINS ON THE VENT History of Present Illness Hx of present illness NO ACUTE CHANGES Vitals Vitals Vital Signs Date Time Temp Pulse Resp B/P (MAP) Pulse Ox O2 Delivery O2 Flow Rate FiO2 01/18/21 11:02 65 18 116/44 (68) 100 Ventilator 01/18/21 08:00 99.1 99.1 Weight Weight [ ] I.O. Intake and Output Intake and Output 01/18/21 07:00 Intake Total 991.0 ml Output Total 1250 ml Balance -259.0 ml IV Total 115.0 ml Tube Feeding 545 ml Other 331 ml Output Urine Total 1250 ml # Bowel Movements 1 Labs Labs Laboratory Tests Test 01/18/21 05:37 01/18/21 07:25 01/18/21 08:00 Glucose (Fingerstick) 129 mg/dL (70-99) Sodium Level 144 mmol/L (136-145) Potassium Level 4.0 mmol/L (3.5-5.1) Chloride Level 107 mmol/L (98-107) Carbon Dioxide Level 32 mmol/L (21-32) Anion Gap 5 (6-14) Blood Urea Nitrogen 20 mg/dL (7-20) Creatinine 1.2 mg/dL (0.6-1.0) Estimated GFR (Cockcroft-Gault) 55.1 Glucose Level 121 mg/dL (70-99) Calcium Level 9.0 mg/dL (8.5-10.1) Phosphorus Level 3.8 mg/dL (2.6-4.7) O2 Saturation 98 % (92-99) Arterial Blood pH 7.44 (7.35-7.45) Arterial Blood pCO2 at Patient Temp 45 mmHg (35-46) Arterial Blood pO2 at Patient Temp 128 mmHg (65-108) Arterial Blood HCO3 30 mmol/L (21-28) Arterial Blood Base Excess 5 mmol/L (-3-3) FiO2 35/vent Micro Micro Microbiology 01/06/21 Blood Culture - Final, Complete NO GROWTH AFTER 5 DAYS 01/05/21 Gram Stain Evaluation - Final, Complete 01/05/21 Respiratory Culture - Final, Complete 01/05/21 Antimicrobic Susceptibility - Final, Complete 01/04/21 Urine Culture - Final, Complete Review of Systems Constitutional: yes: unresponsive Physical Exam General Appearance: no apparent distress, febrile Respiratory: ventilator (Mode:A/C), decreased breath sounds Heart: S1S2 Abdomen: soft Genitourinary: bladder flat Extremities: pulses present, no edema Neurology: other (off sedation. Pupils fixed. not following commands ) Assessment Assessment IMP [id number] OF 2.4 TO 1.2 HYPERNATREMIA-RESOLVED CKD STAGE 3 HYPOKALEMIA-CORRECTED ACUTE RESP FAILURE PROB PNEUMONIA DM II DIONNE OBESITY BACTEREMIA SEIZURES PLAN ANTIBIOTICS CONT WATER FLUSHES AND TF VENT SUPPORT REMAINS CRITICALLY ILL NEUROLOGY EVAL AND TX TRACH AND PEG NEXT WK WILL FOLLOW PRN EFE PRICE MD Jan 18, 2021 11:28
[2021-01-18] MEDS: ASPIRIN CHEWABLE 81 MG TABLET. PO SCH (11:30)
[2021-01-18] MEDS: VALPROIC ACID (AS SODIUM SALT) 750 MG in IV DEXTROSE 5% 50 ML IV SCH ×2 (11:30→20:44)
[2021-01-18] MEDS: CLOPIDOGREL BISULFATE 75 MG TABLET PO SCH (11:30)
[2021-01-18] MEDS: LOSARTAN POTASSIUM 50 MG TABLET. PO SCH (11:31)
--- NOTE | 2021-01-18 12:13 | PDOC ---
[employer] PROGRESS NOTE Date of Service DOS: DATE: 01/18/21 TIME: 12:12 Chief Complaint Chief Complaint Respiratory failure Status post CODE BLUE Severe anoxic brain injury Pneumonia Hyperkalemia Sepsis Obesity Protein malnutrition Hypertensive urgency Seizures CHF COPD History of Present Illness History of Present Illness 01/18/2021 Patient seen and examined in the ICU She is on the vent AC/12/450/30 5% with 5 of PEEP Has IV Depakote OG feeds running at 45 cc an hour Discussed with RN Discussed with case management Chart reviewed She remains critically ill Probable peripheral persistent vegetative state but family wants everything done 01/17/2021 Patient seen and examined in the ICU She remains on the ventilator AC/12/450/30 5% with 5 of PEEP On IV Depakote SCDs are in place Right arm still twitching Pupils are fixed with minimal reaction Discussed with RN Chart reviewed She remains critically ill and is in a persistent vegetative state We would like to move towards hospice but the family would like us to move forward with tracheostomy (she is tentatively scheduled for 01/22/2021) 01/16/2021 Patient seen and examined in the ICU She remains on the ventilator AC/12/450/40 with 5 of PEEP Has Johnson bedside drainage Has SCDs in place OG running at 45 cc an hour Has Depakote IV hanging Discussed with RN Chart reviewed She remains critically ill 01/15/2021 Patient seen and examined in the ICU Discussed with RN Chart reviewed Discussed with case management The patient remains on the ventilator AC/12/450/40 percent with 5 of PEEP Scheduled to get tracheostomy on 01/22/2021 OG running at 35 cc an hour She has SCDs in place She has a Johnson to bedside drainage On Depakote drip Her right arm is twitching She remains critically ill with a poor prognosis but the family wants everything still done 01/14/2021 Patient seen and examined in the ICU She remains mechanically ventilated and is unresponsive despite no sedation AC/12/450/40 percent with 5 of PEEP Has IV Zosyn hanging Has Johnson to bedside drainage Discussed with RN Discussed with case management Chart reviewed She remains critically ill Ms Castro is a 60 year old female w/ PMHx Asthma, CAD s/p stenting x6, CHF, COPD, Diabetes-Type II, High Cholesterol, Hypertension, neuropathy, morbid obesity, RLS, insomnia who presented to ER after she was brought here by EMS from home after she was found unresponsive in her bed by her family. Patient was last known normal was 9 AM on 01/03/2021. family tried to call her but could not get a hold of her so they show up to her house, found her unresponsive in her bed. Per family, patient had a CPAP machine on but the mask slid off her face, there was lot of mucus and material around her face and on her neck area. Patient was responsive to painful stimuli but was very confused, did not follow command. EMS were called, they found her in respiratory distress, GCS of 7-8, they bagged her and brought her here. Upon arrival to room, patient was unresponsive to verbal, severe respiratory distress, need emergent intubation. During the difficult intubation patient became bradycardic and CODE BLUE was initiated. Patient subsequently went into ventricular fibrillation, underwent shock therapy and was initiated on intravenous amiodarone infusion and admitted to ICU. She has been admitted to [place] [address] for intractable nausea and vomiting and PMC once has had this as well as intense pruritis for 6 months. Was seen and treated for same in November, underwent cardiac cath and GI consultation at the time, was discharged home. Her family stated that patient was seen here 2 days prior for epigastric abdominal pain. It was recommended that she need to stay in the hospital however patient did not want to stay in the hospital so she went home. AMA. 01/05: No acute events overnight. Patient seen and examined bedside. Patient r emains intubated. Without sedation. Vent settings at 18/450/40/5. Patient is not responding to painful stimuli at this time. There is a lot of secretions. Currently not on any vasopressors 01/06: No acute events overnight. Patient withdraws to pain. Still intubated with vent settings at 16/450/40/5. Not on any sedation at this time. 01/07: No overnight events. Afebrile. On vent with no sedation for 48 hours FiO2 40% PEEP of 5. Not requiring vasopressors. Not making meaningful eye contact or meaningful movement. Minimal reflexes. Breathing over the vent. Discussed with sonLance overall poor prognosis given what is likely anoxic encephalopathy. He wants to discuss with his aunt Liss and sister Camille future goals of care. 01/08: No events. Afebrile. Still with no meaningful activity no sedation on vent FiO2 40% PEEP of 5, ABG 7.45/46/142. No BM. Adequate UOP. No residuals on feeds. EEG interpreted by neurology as abnormal because of a severe diffuse disturbance of cerebral activity, consistent with a very poor prognosis from anoxic encephalopathy. 01/09: Overnight ventilated no significant activity he still off sedation. K3.2. Vent FiO2 40% PEEP of 5. Chest radiograph unchanged from prior. Right hand with new twitching, concerning for seizure activity, d/w neurology. D/w sons goals of care and grim neurologic prognosis. 01/10: Afebrile, K3.1. ABG 7.4 7/40/129 on 40% FiO2. CXR stable. Still with right hand tremor. Long d/w son, Lance, and his significant other. 01/11: No overnight events. Chest radiograph stable, ABG on 40% FiO2 and PEEP 5 was 7.48/46/137. Heart rate slowing down and blood pressure coming up a bit. Glucose stable. No sedating meds for over 96 hours. No meaningful interaction. Babinski reflexes demonstrated to family. 01/12: Afebrile overnight. Creatinine 1.3, Hb 9.2. Having more PVCs on monitor today. On 40% FiO2 PEEP of 5. Blood pressure little elevated requiring additional IV dose of hydralazine. Still with right arm twitching and irregular mouth movement. No meaningful neurologic interaction. Afebrile overnight. Chest radiograph appears relatively unchanged from prior. Still with multiple PVCs. On vent without sedation since 01/04/2021. FiO2 40% PEEP 5 ABG 7.46/49/129. Still with right arm twitching, more severe. Attempted to call Lance, son and DPOA, no answer, voicemail full, but last evening he did come in and request to move forward with trach and PEG referrals, does not want to discuss end-of-life care with me anymore Vitals/I&O Vitals/I&O: Vital Signs Date Time Temp Pulse Resp B/P (MAP) Pulse Ox O2 Delivery O2 Flow Rate FiO2 01/18/21 11:31 65 116/44 01/18/21 11:02 18 100 Ventilator 01/18/21 08:00 99.1 99.1 I & O 01/17/21 01/17/21 01/18/21 14:59 22:59 06:59 Intake Total 57.5 ml 654 ml 279.5 ml Output Total 475 ml 450 ml 325 ml Balance -417.5 ml 204 ml -45.5 ml Physical Exam Physical Exam: GENERAL: Intubated, opens eyes transiently, does not follow any commands HEENT: Normocephalic, atraumatic. Tongue protruded, ETT /OGT + NECK: Supple though fullness due to body habitus. LUNGS: Decreased breath sounds. No wheezing. HEART: S1, S2. Distant heart sounds. ABDOMEN: Obese. Bowel sounds present. EXTREMITIES: Minimal edema. No cyanosis. NEUROLOGIC: Intubated,right upper extremity twitching Left IJ clean General: No acute distress Heart: Regular rate Lungs: Crackles Abdomen: Soft Extremities: Other (Trace edema) Labs Labs: Laboratory Tests Test 01/18/21 05:37 01/18/21 07:25 01/18/21 08:00 Glucose (Fingerstick) 129 mg/dL (70-99) Sodium Level 144 mmol/L (136-145) Potassium Level 4.0 mmol/L (3.5-5.1) Chloride Level 107 mmol/L (98-107) Carbon Dioxide Level 32 mmol/L (21-32) Anion Gap 5 (6-14) Blood Urea Nitrogen 20 mg/dL (7-20) Creatinine 1.2 mg/dL (0.6-1.0) Estimated GFR (Cockcroft-Gault) 55.1 Glucose Level 121 mg/dL (70-99) Calcium Level 9.0 mg/dL (8.5-10.1) Phosphorus Level 3.8 mg/dL (2.6-4.7) O2 Saturation 98 % (92-99) Arterial Blood pH 7.44 (7.35-7.45) Arterial Blood pCO2 at Patient Temp 45 mmHg (35-46) Arterial Blood pO2 at Patient Temp 128 mmHg (65-108) Arterial Blood HCO3 30 mmol/L (21-28) Arterial Blood Base Excess 5 mmol/L (-3-3) FiO2 35/vent Assessment and Plan Assessmemt and Plan Problems Medical Problems: (1) Acute renal failure Status: Acute (2) Altered mental status Status: Acute (3) Aspiration pneumonia Status: Acute (4) Hyperkalemia Status: Acute (5) Respiratory failure Status: Acute (6) Sepsis Status: Acute Respiratory failure Status post CODE BLUE Severe anoxic brain injury Persistent vegetative state Pneumonia Hyperkalemia Sepsis Obesity Protein malnutrition Hypertensive urgency Seizures CHF COPD Plan ICU monitoring Vent weaning if possible but unlikely Continue the IV Zosyn Continue Johnson to bedside drainage Her prognosis is extremely poor Surgery nephrology cardiology nephrology and neuro following For now trend labs Home meds Continue OG feeds DVT prophylaxis We would like to move towards hospice but family prefers tracheostomy (scheduled for tracheostomy on 01/22/2021) Will likely need a PEG tube after that and then moved to a long-term care facility? Continue Keppra Full code per family request despite poor prognosis CC time 31minutes Comment Review of Relevant I have reviewed the following items shady (where applicable) has been applied. Justifications for Admission Other Justification cardiac arrest KATHE MARIE III DO Jan 18, 2021 12:13
--- OUTSIDE RECORDS SUMMARY | 2021-01-18 13:45 | XMS REPORT ---
Author Author [facility] Healthcare Phys[facility] Organization 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 Problem GERD (gastroesophageal reflux disease) K21.9 A ctive confirmed 605653116 Problem DM2 (diabetes mellitus, type 2) E11.9 Active confi rmed 90309103 Patient chest pain appears to be secondary to GI etiology and since she is having episodes of vomiting, cannot rule out gastroparesis. She was advised to check with PCP for further evaluation and treatment. Continue current medical regimen consider Jardiance. Problem CAD (coronary artery disease) I25.10 Active confirm ed 00534609 s/p PCI/stent to LAD and ramus intermedius, presently complaining of chest pain that appears to be secondary to GI etiology. Recent 2D echo showed LVEF 45% and recent Lexiscan nuclear stress test did not show any significant ischemia. Stop Plavix and decrease aspirin dose to 81 mg daily. Continue current secondary prevention measures. Problem Anemia D64.9 Active confirmed 024947183 Problem Chronic diastolic heart failure I50.32 Active confi rmed [id number] Well compensated. Continue current medical regimen Problem Hypertension I10 Active confirmed 9428302 3 Well-controlled. Problem History of heart artery stent Z95.5 Active confirm ed 731633007 Problem DIONNE (obstructive sleep apnea) G47.33 Active confirm ed 80665791 Problem Osteoarthritis M19.90 Active confirmed 84730 5006 Problem Sciatica M54.30 Active confirmed 17791412 Problem Chronic anxiety F41.9 Active confirmed 1917 50927 Problem CKD (chronic kidney disease), stage III N18.3 Active confirmed 002793286 Problem BMI 60.0-69.9, adult Z68.44 Active confirmed 724912943 Problem Insomnia G47.00 Active confirmed 346696464 Problem Morbid obesity E66.01 Active confirmed 28765 6002 Problem Peripheral artery disease I73.9 Active confirmed 231795405 Problem Non-seasonal allergic rhinitis, unspecified trigger J30.89 Active confirmed 47388526 Problem Restless legs syndrome G25.81 Active confirmed 77262108 Problem Dysphagia, unspecified type R13.10 Active confirmed 68711270 Problem Hyperlipidemia E78.5 Active confirmed 28227 004 Continue statin therapy. Problem Perirectal abscess K61.1 Active confirmed 9 5573304 Problem BMI 50.0-59.9, adult Z68.43 Active confirmed 978358924 Problem Postmenopausal vaginal bleeding N95.0 Active confi rmed 23417317 Problem Abnormal mammogram of both breasts R92.8 Activ e confirmed 950233550 Problem Postmenopausal bleeding N95.0 Active confirmed 47679464 ALLERGIES No Known Allergies IMMUNIZATIONS Vaccine Route Administration Date Status Afluria 3yrs and older IM Intramuscular May 19, 2019 Adminis tered zzzAluria IM Intramuscular Aug 25, 2017 Administered zzzAluria IM Intramuscular Apr 20, 2015 Administered SOCIAL HISTORY Sex Assigned At : Social History Observation Description Sex Assigned At Unknown REASON FOR REFERRAL from 1960 to 2021-01-18 Reason DO NOT SEND- for [employer] purposes Referral Organization [facility] Referring Provider First Name SWATHI Referring Provider Last Name LEOBARDO Referring Provider Specialty Neurology Referred Provider N/A, [email or web address] Referred Provider Specialty Neurology Referral Priority Routine VITAL SIGNS No information MEDICATIONS Medication SIG (Take, Route, Frequency, Duration) Notes Start Da te End Date Status Carafate 1 g 1 tab(s) orally 4 times a da y (before meals and at bedtime) for 14day(s) Active zolpidem 5 MG TAKE ONE TABLET AT BEDTIME orally once a day (at bedtime) for 30 Active fluticasone nasal 50 mcg/inh 2 spray(s) intranasally once a day for 3 0 Active Levemir FlexTouch 100 units/mL TAKE 30 UNITS AT BEDTIME for 30 Active True test blood glucose strips - USE DIRECTED THREE TIMES DAILY fo r 30 Active cyclobenzaprine 10 mg 1 tab(s) orally 3 times a day as needed for 30 Active FeroSul 325 mg 1 tab(s) orally daily for 30 day(s) Feb, Active Crestor 20 mg TAKE ONE TABLET DAILY for 30 Active metFORMIN 500 mg 1 tab(s) orally 2 times a day for 30 Not-Taking hydrALAZINE 50 mg 1 tab(s) orally bid Active Acetaminophen-Oxycodone Hydrochloride 325 mg-5 mg 1 ta b(s) orally every 6 hours as needed for 30 days M19.90 dx November, Active Leader SuperThin Lancets finger stick lancet as directed for 30 14 Dec, 2017 Active FreeStyle Bharathi 14 Day [place] - - as directed Dx: E11.9, NPI# 1 [id number] Oct, Active True Metrix Test Strips test strip USE DIRECTED THREE TIMES NIKKI Y for 30 Active Nystop 561362 units/g 1 ashutosh applied topically 3 ti mes a day as needed for rash for 30 Active IBU 800 mg TAKE 1 TABLET BY MOUTH 3 TIMES A DAY NEEDED FOR PAIN fo r 10 Active pantoprazole 40 mg 1 tab(s) orally once a day for 30 Active diclofenac topical 3% 1 ashutosh applied topically 2 times a day Active Metoprolol Tartrate 50 mg TAKE ONE TABLET TWICE DAILY for 30 Active Insupen Insulin Pen Needle Ultrafine, 31g for levemir USE DIR ECTED for 30 Active Leader Pen [place] 31gx5/16" finger stic USE DIRECTED for 30 Active Rosuvastatin Calcium 40 mg 1 tab(s) orally once a day for 30 day (s) Aug, Active loratadine 10 mg 1 tab(s) orally once a day for 30 day(s) Aug, Active ondansetron 4 mg 1 tab(s) orally every 8 hours as needed for nausea for 30 days Oct, Active Potassium Chloride 20 meq/1 20 meq/1 TAKE ONE TABLET T WICE DAILY DIRECTED for 30 Active rOPINIRole 1 mg TAKE ONE TABLET AT BEDTIME for 30 Active losartan 100 mg 1 tab(s) orally once a day for 30 Active oxybutynin 5 mg 1 tab(s) orally bid for 30 Active NovoLOG FlexPen 100 units/mL INJECT 60 UNITS THREE ROSY ES DAILY BEFORE MEALS subcutaneously 60 units 3 x day before meals for 25 Active ALPRAZolam 0.5 mg TAKE 1 TABLET THREE TIMES DA CHIP NEEDED FOR ANXIETY. orally bid for 30 days Active Lancets 30g Super Thin , 1 lancet fingerstick as directed te sting as dir npi [id number] dx E11.9 13 Mar, 2017 Active FreeStyle Bharathi 14 Day Sensor - - as directed Dx: E11.9, NPI# 1 [id number] Oct, Active ProAir HFA 90 mcg/inh 2 PUFFS EVERY 4 -6 HRS. N EEDED FOR WHEEZING AND SHORTNESS OF BREATH. for 30 Acti ve Requip 1 mg TAKE ONE TABLET AT BEDTIME for 30 Active aspirin 81 mg 1 tab orally daily Act jason Ondansetron Hydrochloride 4 mg 1 tab(s) orally every 8 hours as needed for nausea for 30 days Aug, Active bumetanide 1 mg 1 tab(s) orally bid for 30 Active hydrOXYzine hydrochloride 50 mg 1 tab(s) orally 4 time s a day as needed for itching for 22 Active Albuterol Nebulized 2.5mg 3ml 0.083 solution USE ONE V IAL EVERY 4 TO 6 HOURS NEEDED FOR WHEEZING / COUGH for 30 Active nitroglycerin 0.4 mg 1 tab sublingually prn for 10 Active gabapentin 600 mg 1 tab(s) orally 3 times a day for 30 Active PROCEDURES No Information RESULTS No Results REASON FOR VISIT [facility] 12/29/20 Chest pains,dehydration, ER visit 01/02/21 [facility] MEDICAL (GENERAL) HISTORY Type Description Date Medical History Genital warts Medical History Sebaceous cyst Medical History Anxiety/depression Medical History IBS Medical History COPD Medical History CHF Medical History CKD Medical History Hyperlipidemia Medical History Diabetes mellitus, type 2 Medical History Coronary artery disease, marissa or stent placement to LAD and ramus intermedius artery , [facility] on 11/09/17 with PCI/CARLOS to LAD Medical History Mammograms 05/03, 04/07, 03/08 Medical History FOBT 10/05, colonoscopy 05/08 Surgical History Previous I & D abscess Surgical History I & D labial and perirectal abscess 03/20 Hospitalization History Same as above Goals Section No Information Health Concerns No Information MEDICAL EQUIPMENT No Information MENTAL STATUS No Information FUNCTIONAL STATUS No Information ASSESSMENTS No Information PLAN OF TREATMENT Referrals Referral Date Details DO NOT SEND- for [employer] purposes Next Appt Details Provider Name:ERICA ADEN, 2021-02 - 10:00:00 AM, [address], [address], [place], [place], [phone], Insurance Providers Payer Name Payer Address Payer Phone Insured Name Patient Relati onship to Insured Coverage Start Date Coverage End Date [employer] [facility] [address] [address] [facility] [phone] Ann Castro 2020
[2021-01-18] MEDS: FAMOTIDINE 20 MG/2 ML VIAL IVP SCH (20:44)
[2021-01-18] MEDS: ATORVASTATIN CALCIUM 40 MG TABLET. PO SCH (20:44)
[2021-01-18] MEDS: hydrALAZINE 20 MG/ML VIAL. IVP PRN (21:07)
[2021-01-19] VITALS (23 sets, daily range): BP systolic 84–180; BP diastolic 7–79
[2021-01-19] MEDS: HEPARIN for SUB-Q USE 5,000 UNIT/ML VIAL. SQ SCH ×3 (05:54→22:15)
--- NOTE | 2021-01-19 08:19 | PDOC ---
PULMONARY PROGRESS NOTES DATE: 01/19/21 TIME: 08:17 Subjective Pt. remains on vent support AC mode no response on fi02 35% peep 5 no sedation large ett secretion Vitals Vital Signs Date Time Temp Pulse Resp B/P (MAP) Pulse Ox O2 Delivery O2 Flow Rate FiO2 01/19/21 07:45 100 Ventilator 01/19/21 06:00 85 22 112/64 (80) 01/19/21 04:00 98.9 98.9 Comments unable to obtain 2/2 clinical state HEENT: Other (nc at perrl nose clear orally intubated neck no lad no thyromegaly ) Lungs: Crackles Cardiovascular: S1, S2 Abdomen: Soft, Non-tender, Other (no mass obese) Extremities: Other (edema) Skin: Warm Labs Laboratory Tests Test 01/18/21 05:37 01/18/21 07:25 01/18/21 08:00 01/19/21 06:00 Glucose (Fingerstick) 129 mg/dL (70-99) 154 mg/dL (70-99) Sodium Level 144 mmol/L (136-145) Potassium Level 4.0 mmol/L (3.5-5.1) Chloride Level 107 mmol/L (98-107) Carbon Dioxide Level 32 mmol/L (21-32) Anion Gap 5 (6-14) Blood Urea Nitrogen 20 mg/dL (7-20) Creatinine 1.2 mg/dL (0.6-1.0) Estimated GFR (Cockcroft-Gault) 55.1 Glucose Level 121 mg/dL (70-99) Calcium Level 9.0 mg/dL (8.5-10.1) Phosphorus Level 3.8 mg/dL (2.6-4.7) O2 Saturation 98 % (92-99) Arterial Blood pH 7.44 (7.35-7.45) Arterial Blood pCO2 at Patient Temp 45 mmHg (35-46) Arterial Blood pO2 at Patient Temp 128 mmHg (65-108) Arterial Blood HCO3 30 mmol/L (21-28) Arterial Blood Base Excess 5 mmol/L (-3-3) FiO2 35/vent Laboratory Tests Test 01/19/21 06:00 Glucose (Fingerstick) 154 mg/dL (70-99) Medications Active Scripts Medications Dose Route/Sig Max Daily Dose Days Date Category Dose Instructions Voltaren (Diclofenac Sodium) 100 Gm Gel..gram. 1 Gm TP QID 30 12/10/20 Reported apply to affected area(s) Oxycodone Hcl 5 Mg Capsule 5 Mg PO PRN Q6HRS PRN 12/08/20 Reported Nystatin 15 Gm Powder 1 [place] TP BID 7 12/08/20 Reported apply to affected area(s) Ondansetron Odt (Ondansetron) 4 Mg Tab.rapdis 1 Tab PO PRN Q8HRS PRN 11/05/20 Reported Reglan (Metoclopramide Hcl) 10 Mg Tablet 1 Tab PO QID 30 11/05/20 Reported before food and bedtime Pantoprazole Sodium (Pantoprazole Sodium) 40 Mg Tablet.dr 40 Mg PO BIDAC 30 06/21/20 Rx Losartan Potassium 100 Mg Tablet 100 Mg PO DAILY 05/03/20 Reported Aspirin 325 Mg Tablet 1 Tab PO DAILY 05/03/20 Reported Metformin Hcl 500 Mg Tablet 500 Mg PO BIDWMEALS 05/03/20 Reported Bumetanide 1 Mg Tablet 1 Mg PO BID 04/02/20 Reported Insulin Aspart 100 Unit/1 Ml Vial 60 Unit SQ TIDAC 04/02/20 Reported novolg flex pen Isosorbide Mononitrate Er (Isosorbide Mononitrate) 120 Mg Tab.er.24h 120 Mg PO DAILY 04/02/20 Reported NITROGLYCERIN SubLingual (Nitroglycerin) 0.4 Mg Tab.subl 0.4 Mg SL PRN Q5MIN PRN 04/02/20 Reported Albuterol Sulfate Neb Soln (Albuterol Sulfate) 2.5 Mg/3 Ml Vial.neb 2.5 Mg NEB Q4-6HRS PRN 04/02/20 Reported Levemir Flextouch (Insulin Detemir) 100 Unit/1 Ml Insuln.pen 60 Unit SQ HS 04/02/20 Reported Hydralazine Hcl 25 Mg Tablet 25 Mg PO BID 04/02/20 Reported Fluticasone Propionate Nasal [place] (Fluticasone Propionate) 16 Gm [place].susp 2 [place] NS DAILY 06/18/19 Reported Zolpidem Tartrate 5 Mg Tablet 5 Mg PO PRN QHS PRN 06/18/19 Reported Amlodipine Besylate 10 Mg Tablet 10 Mg PO DAILY 06/18/19 Reported Gabapentin 600 Mg Tablet 600 Mg PO BID 06/18/19 Reported Potassium Chloride (Potassium Chloride) 20 Meq Tablet.er 20 Meq PO BID 06/18/19 Reported Clopidogrel (Clopidogrel Bisulfate) 75 Mg Tablet 75 Mg PO DAILYWBKFT 75 11/10/17 Rx Proair Respiclick (Albuterol Sulfate) 90 Mcg Aer.pow.ba 2 Puff IH PRN Q4-6HRS PRN 09/08/16 Reported Cyclobenzaprine Hcl 10 Mg Tablet 1 Tab PO BID PRN 09/08/16 Reported Requip (Ropinirole Hcl) 1 Mg Tablet 1 Tab PO QHS 09/08/16 Reported Crestor (Rosuvastatin Calcium) 20 Mg Tablet 20 Mg PO HS 10/02/15 Reported LAST DOSE: 10/01/15 BEDTIME NEXT DOSE: 10/02/15 BEDTIME Oxybutynin Chloride 5 Mg Tablet 1 Tab PO DAILY 10/02/15 Reported LAST DOSE: 10/02/15 AM NEXT DOSE: 10/03/15 AM Comments CXR reviewed Resolution of left pleural effusion. Unchanged bilateral opacities. CXR 01/07 IMPRESSION: 1. Diffuse interstitial prominence may be seen with interstitial pulmonary edema or atypical infectious/inflammatory process. 2. Support lines and tubes as above. 3. Mild cardiomegaly. Impression . 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 Echo 12/2019 with LVEF 45%, improved on cath on 12/07 Coronary artery disease with recent -- cath 12/07 showed patent long stented proximal to distal LAD. No lesions needing intervention were noted. Echo with LVEF 55 to 60%. Type 2 diabetes. Chronic obstructive pulmonary disease. Morbid obesity. Hypertension. Obstructive sleep apnea. MIRIAM cr trending down Plan . UPDATED 01/19/21 no response off sedation Continue current vent support in AC mode --setting reviewed trach 01/22 Follow ABG/CXR-- no change Follow surgery recs-- Trach planned for 01/22/21 Follow Nephrology recs-- depakote, seizure precautions per neuology DVT/GI PPX-- sub q heparin D/W RN and RT prognosis poor FULL CODE neurology D/W family on 01/18, remains aggressive care full code UPDATED 01/18/21 No clinical change Continue current vent support in AC mode --setting reviewed Follow ABG/CXR-- no change Follow surgery recs-- Trach planned for 01/22/21 Follow Nephrology recs--depakote, seizure precautions DVT/GI PPX-- sub q heparin D/W RN and RT FULL CODE neurology D/W family again today, remains aggressive care UPDATED 01/17/21 No clinical change Continue current vent support in AC mode --setting reviewed Follow ABG/CXR-- no change Follow ID recs--now off ABX Follow surgery recs-- Trach planned for 01/22/21 Follow GI recs- planned for PEG Follow Nephrology recs--depakote, seizure precautions DVT/GI PPX-- sub q heparin D/W RN and RT FULL CODE UPDATED 01/16/21 No clinical change Continue current vent support in AC mode -- Follow ID recs--now off ABX Follow surgery recs-- Trach planned Follow GI recs- planned for PEG Follow cardiology recs--no further work at this time Follow Nephrology recs--depakote, seizure precautions DVT/GI PPX-- sub q heparin D/W RN and RT FULL CODE UPDATED 01/15/21 Continue current vent support in AC mode --12/450/40% and PEEP of 5 Follow ID recs--now off ABX Follow surgery recs-- recommends comfort measures, considering trach 01/22/21 Follow GI recs- planned for PEG this week Follow cardiology recs--no further work at this time Follow Nephrology recs--depakote, seizure precautions DVT/GI PPX-- sub q heparin Social work for DC planning D/W RN and RT FULL CODE DAYRON EDWARD MD Jan 19, 2021 08:19
[2021-01-19 08:46] LABS: BASE EXCESS ABG 5 mmol/L (-3-3); HCO3 ABG 30 mmol/L (21-28); PCO2 ABG 43 mmHg (35-46); PO2 ABG 88 mmHg (65-108); SAT O2 ABG 97 % (92-99)
[2021-01-19 08:47] LABS: FIO2 ABG 35% VENT
[2021-01-19] MEDS: ASPIRIN CHEWABLE 81 MG TABLET. PO SCH (10:20)
[2021-01-19] MEDS: ISOSORBIDE MONONITRATE 20 MG TABLET PO SCH ×2 (10:20→15:10)
[2021-01-19] MEDS: CLOPIDOGREL BISULFATE 75 MG TABLET PO SCH (10:20)
[2021-01-19] MEDS: METOPROLOL TART IMMED RELEASE 25 MG TABLET. PO SCH ×2 (10:21→21:01)
[2021-01-19] MEDS: hydrALAZINE 25 MG TABLET PO SCH ×2 (10:22→21:02)
[2021-01-19] MEDS: LOSARTAN POTASSIUM 50 MG TABLET. PO SCH (10:22)
[2021-01-19] MEDS: VALPROIC ACID (AS SODIUM SALT) 750 MG in IV DEXTROSE 5% 50 ML IV SCH ×2 (10:27→20:59)
--- NOTE | 2021-01-19 12:06 | PDOC ---
[facility] PROGRESS NOTE Date of Service DOS: DATE: 01/19/21 TIME: 12:04 Chief Complaint Chief Complaint Respiratory failure Status post CODE BLUE Severe anoxic brain injury Pneumonia Hyperkalemia Sepsis Obesity Protein malnutrition Hypertensive urgency Seizures CHF COPD History of Present Illness History of Present Illness 01/19/2021 Patient seen and examined in the ICU She remains critically ill Still not requiring sedation Pupils are actually small but no response Neurologically she is totally unresponsive Right arm with less twitching She is on IV Depakote Vent settings as follows AC/40/30 5% with 5 of PEEP She is still scheduled for tracheostomy on 2020 She will probably need a PEG tube as well but will await our trach first Has Johnson bedside drainage OG running at 45 cc an hour with Vital 01/18/2021 Patient seen and examined in the ICU She is on the vent AC/12/450/30 5% with 5 of PEEP Has IV Depakote OG feeds running at 45 cc an hour Discussed with RN Discussed with case management Chart reviewed She remains critically ill Probable peripheral persistent vegetative state but family wants everything done 01/17/2021 Patient seen and examined in the ICU She remains on the ventilator AC/12/450/30 5% with 5 of PEEP On IV Depakote SCDs are in place Right arm still twitching Pupils are fixed with minimal reaction Discussed with RN Chart reviewed She remains critically ill and is in a persistent vegetative state We would like to move towards hospice but the family would like us to move forward with tracheostomy (she is tentatively scheduled for 01/22/2021) 01/16/2021 Patient seen and examined in the ICU She remains on the ventilator AC/12/450/40 with 5 of PEEP Has Johnson bedside drainage Has SCDs in place OG running at 45 cc an hour Has Depakote IV hanging Discussed with RN Chart reviewed She remains critically ill 01/15/2021 Patient seen and examined in the ICU Discussed with RN Chart reviewed Discussed with case management The patient remains on the ventilator AC/12/450/40 percent with 5 of PEEP Scheduled to get tracheostomy on 01/22/2021 OG running at 35 cc an hour She has SCDs in place She has a Johnson to bedside drainage On Depakote drip Her right arm is twitching She remains critically ill with a poor prognosis but the family wants everything still done 01/14/2021 Patient seen and examined in the ICU She remains mechanically ventilated and is unresponsive despite no sedation AC/12/450/40 percent with 5 of PEEP Has IV Zosyn hanging Has Johnson to bedside drainage Discussed with RN Discussed with case management Chart reviewed She remains critically ill Ms Castro is a 60 year old female w/ PMHx Asthma, CAD s/p stenting x6, CHF, COPD, Diabetes-Type II, High Cholesterol, Hypertension, neuropathy, morbid obesity, RLS, insomnia who presented to ER after she was brought here by EMS from home after she was found unresponsive in her bed by her family. Patient was last known normal was 9 AM on 01/03/2021. family tried to call her but could not get a hold of her so they show up to her house, found her unresponsive in her bed. Per family, patient had a CPAP machine on but the mask slid off her face, there was lot of mucus and material around her face and on her neck area. Patient was responsive to painful stimuli but was very confused, did not follow command. EMS were called, they found her in respiratory distress, GCS of 7-8, they bagged her and brought her here. Upon arrival to room, patient was unresponsive to verbal, severe respiratory distress, need emergent intubation. During the difficult intubation patient became bradycardic and CODE BLUE was initiated. Patient subsequently went into ventricular fibrillation, underwent shock therapy and was initiated on intravenous amiodarone infusion and admitted to ICU. She has been admitted to [facility] x2 for intractable nausea and vomiting and PMC once has had this as well as intense pruritis for 6 months. Was seen and treated for same in November, underwent cardiac cath and GI consultation at the time, was discharged home. Her family stated that patient was seen here 2 days prior for epigastric abdominal pain. It was recommended that she need to stay in the hospital however patient did not want to stay in the hospital so she went home. AMA. 01/05: No acute events overnight. Patient seen and examined bedside. Patient remains intubated. Without sedation. Vent settings at 18/450/40/5. Patient is not responding to painful stimuli at this time. There is a lot of secretions. Currently not on any vasopressors 01/06: No acute events overnight. Patient withdraws to pain. Still intubated with vent settings at 16/450/40/5. Not on any sedation at this time. 01/07: No overnight events. Afebrile. On vent with no sedation for 48 hours FiO2 40% PEEP of 5. Not requiring vasopressors. Not making meaningful eye contact or meaningful movement. Minimal reflexes. Breathing over the vent. Discussed with son, Lance overall poor prognosis given what is likely anoxic encephalopathy. He wants to discuss with his aunt Liss and sister Camille future goals of care. 01/08: No events. Afebrile. Still with no meaningful activity no sedation on vent FiO2 40% PEEP of 5, ABG 7.45/46/142. No BM. Adequate UOP. No residuals on feeds. EEG interpreted by neurology as abnormal because of a severe diffuse disturbance of cerebral activity, consistent with a very poor prognosis from anoxic encephalopathy. 01/09: Overnight ventilated no significant activity he still off sedation. K3.2. Vent FiO2 40% PEEP of 5. Chest radiograph unchanged from prior. Right hand with new twitching, concerning for seizure activity, d/w neurology. D/w sons goals of care and grim neurologic prognosis. 01/10: Afebrile, K3.1. ABG 7.4 7/40/129 on 40% FiO2. CXR stable. Still with right hand tremor. Long d/w son, Lance, and his significant other. 01/11: No overnight events. Chest radiograph stable, ABG on 40% FiO2 and PEEP 5 was 7.48/46/137. Heart rate slowing down and blood pressure coming up a bit. Glucose stable. No sedating meds for over 96 hours. No meaningful interaction. Babinski reflexes demonstrated to family. 01/12: Afebrile overnight. Creatinine 1.3, Hb 9.2. Having more PVCs on monitor today. On 40% FiO2 PEEP of 5. Blood pressure little elevated requiring a dditional IV dose of hydralazine. Still with right arm twitching and irregular mouth movement. No meaningful neurologic interaction. Afebrile overnight. Chest radiograph appears relatively unchanged from prior. Still with multiple PVCs. On vent without sedation since 01/04/2021. FiO2 40% PEEP 5 ABG 7.46/49/129. Still with right arm twitching, more severe. Attempted to call Lance, son and DPOA, no answer, voicemail full, but last evening he did come in and request to move forward with trach and PEG referrals, does not want to discuss end-of-life care with me anymore Vitals/I&O Vitals/I&O: Vital Signs Date Time Temp Pulse Resp B/P (MAP) Pulse Ox O2 Delivery O2 Flow Rate FiO2 01/19/21 11:00 65 16 98/47 (64) 99 Ventilator 01/19/21 08:00 97.6 97.6 I & O 01/18/21 01/18/21 01/19/21 15:00 23:00 07:00 Intake Total 1107 ml 736 ml Output Total 700 ml 570 ml 380 ml Balance -700 ml 537 ml 356 ml Physical Exam Physical Exam: GENERAL: Intubated, opens eyes transiently, does not follow any commands HEENT: Normocephalic, atraumatic. Tongue protruded, ETT /OGT + NECK: Supple though fullness due to body habitus. LUNGS: Decreased breath sounds. No wheezing. HEART: S1, S2. Distant heart sounds. ABDOMEN: Obese. Bowel sounds present. EXTREMITIES: Minimal edema. No cyanosis. NEUROLOGIC: Intubated,right upper extremity twitching Left IJ clean General: No acute distress Heart: Regular rate Lungs: Crackles Abdomen: Soft Extremities: Other (Trace edema) Labs Labs: Laboratory Tests Test 01/19/21 06:00 01/19/21 08:00 Glucose (Fingerstick) 154 mg/dL (70-99) O2 Saturation 97 % (92-99) Arterial Blood pH 7.46 (7.35-7.45) Arterial Blood pCO2 at Patient Temp 43 mmHg (35-46) Arterial Blood pO2 at Patient Temp 88 mmHg (65-108) Arterial Blood HCO3 30 mmol/L (21-28) Arterial Blood Base Excess 5 mmol/L (-3-3) FiO2 35% vent Assessment and Plan Assessmemt and Plan Problems Medical Problems: (1) Acute renal failure Status: Acute (2) Altered mental status Status: Acute (3) Aspiration pneumonia Status: Acute (4) Hyperkalemia Status: Acute (5) Respiratory failure Status: Acute (6) Sepsis Status: Acute Respiratory failure Status post CODE BLUE Severe anoxic brain injury Persistent vegetative state Pneumonia Hyperkalemia Sepsis Obesity Protein malnutrition Hypertensive urgency Seizures CHF COPD Plan ICU monitoring Vent weaning if possible but unlikely Continue the IV Zosyn Continue Johnson to bedside drainage Her prognosis is extremely poor Surgery nephrology cardiology nephrology and neuro following For now trend labs Home meds Continue OG feeds DVT prophylaxis We would like to move towards hospice but family prefers tracheostomy (scheduled for tracheostomy on 01/22/2021) Will likely need a PEG tube after that and then moved to a long-term care facility? Continue Keppra Full code per family request despite poor prognosis CC time 32minutes Comment Review of Relevant I have reviewed the following items shady (where applicable) has been applied. Justifications for Admission Other Justification cardiac arrest KATHE MARIE III DO Jan 19, 2021 12:06
[2021-01-19] MEDS: FAMOTIDINE 20 MG/2 ML VIAL IVP SCH (20:59)
[2021-01-19] MEDS: ATORVASTATIN CALCIUM 40 MG TABLET. PO SCH (21:00)
[2021-01-20] VITALS (24 sets, daily range): BP systolic 97–201; BP diastolic 1–89
[2021-01-20] MEDS: hydrALAZINE 20 MG/ML VIAL. IVP PRN (04:11)
[2021-01-20] MEDS: HEPARIN for SUB-Q USE 5,000 UNIT/ML VIAL. SQ SCH ×3 (06:29→22:08)
[2021-01-20 07:22] LABS: CALCIUM 8.9 mg/dL (8.5-10.1); CREATININE 1.4 mg/dL (0.6-1.0); GFR 46.1; HEMATOCRIT 28.3 % (36.0-47.0); HEMOGLOBIN 8.8 g/dL (12.0-15.5); MAGNESIUM 2.6 mg/dL (1.8-2.4); POTASSIUM 4.2 mmol/L (3.5-5.1); RED BLOOD COUNT 3.53 x10^6/uL (3.50-5.40); RED CELL DISTRIBUTION WIDTH 16.4 % (11.5-14.5); WHITE BLOOD COUNT 12.1 x10^3/uL (4.0-11.0)
[2021-01-20 09:00] LABS: BASE EXCESS ABG 5 mmol/L (-3-3); HCO3 ABG 29 mmol/L (21-28); PCO2 ABG 42 mmHg (35-46); PO2 ABG 105 mmHg (65-108); SAT O2 ABG 98 % (92-99)
[2021-01-20 09:23] LABS: FIO2 ABG 35% VENT
--- NOTE | 2021-01-20 09:39 | PDOC ---
PULMONARY PROGRESS NOTES DATE: 01/20/21 TIME: 09:38 Subjective on vent support AC mode no response on fi02 35% peep 5 no sedation mod ett secretion Vitals Vital Signs Date Time Temp Pulse Resp B/P (MAP) Pulse Ox O2 Delivery O2 Flow Rate FiO2 01/20/21 09:00 88 18 138/62 (87) 100 Ventilator 01/20/21 08:00 99.3 99.3 Comments unable to obtain 2/2 clinical state HEENT: Other (nc at perrl nose clear orally intubated neck no lad no thyromegaly ) Lungs: Crackles Cardiovascular: S1, S2 Abdomen: Soft, Non-tender, Other (no mass obese) Extremities: Other (edema) Skin: Warm Labs Laboratory Tests Test 01/19/21 06:00 01/19/21 08:00 01/20/21 00:13 01/20/21 06:35 Glucose (Fingerstick) 154 mg/dL (70-99) 124 mg/dL (70-99) O2 Saturation 97 % (92-99) Arterial Blood pH 7.46 (7.35-7.45) Arterial Blood pCO2 at Patient Temp 43 mmHg (35-46) Arterial Blood pO2 at Patient Temp 88 mmHg (65-108) Arterial Blood HCO3 30 mmol/L (21-28) Arterial Blood Base Excess 5 mmol/L (-3-3) FiO2 35% vent White Blood Count 12.1 x10^3/uL (4.0-11.0) Red Blood Count 3.53 x10^6/uL (3.50-5.40) Hemoglobin 8.8 g/dL (12.0-15.5) Hematocrit 28.3 % (36.0-47.0) Mean Corpuscular Volume 80 fL (79-100) Mean Corpuscular Hemoglobin 25 pg (25-35) Mean Corpuscular Hemoglobin Concent 31 g/dL (31-37) Red Cell Distribution Width 16.4 % (11.5-14.5) Platelet Count 409 x10^3/uL (140-400) Sodium Level 143 mmol/L (136-145) Potassium Level 4.2 mmol/L (3.5-5.1) Chloride Level 106 mmol/L (98-107) Carbon Dioxide Level 32 mmol/L (21-32) Anion Gap 5 (6-14) Blood Urea Nitrogen 25 mg/dL (7-20) Creatinine 1.4 mg/dL (0.6-1.0) Estimated GFR (Cockcroft-Gault) 46.1 Glucose Level 156 mg/dL (70-99) Calcium Level 8.9 mg/dL (8.5-10.1) Magnesium Level 2.6 mg/dL (1.8-2.4) Test 01/20/21 08:00 O2 Saturation 98 % (92-99) Arterial Blood pH 7.46 (7.35-7.45) Arterial Blood pCO2 at Patient Temp 42 mmHg (35-46) Arterial Blood pO2 at Patient Temp 105 mmHg (65-108) Arterial Blood HCO3 29 mmol/L (21-28) Arterial Blood Base Excess 5 mmol/L (-3-3) FiO2 35% vent Laboratory Tests Test 01/20/21 00:13 01/20/21 06:35 01/20/21 08:00 Glucose (Fingerstick) 124 mg/dL (70-99) White Blood Count 12.1 x10^3/uL (4.0-11.0) Red Blood Count 3.53 x10^6/uL (3.50-5.40) Hemoglobin 8.8 g/dL (12.0-15.5) Hematocrit 28.3 % (36.0-47.0) Mean Corpuscular Volume 80 fL (79-100) Mean Corpuscular Hemoglobin 25 pg (25-35) Mean Corpuscular Hemoglobin Concent 31 g/dL (31-37) Red Cell Distribution Width 16.4 % (11.5-14.5) Platelet Count 409 x10^3/uL (140-400) Sodium Level 143 mmol/L (136-145) Potassium Level 4.2 mmol/L (3.5-5.1) Chloride Level 106 mmol/L (98-107) Carbon Dioxide Level 32 mmol/L (21-32) Anion Gap 5 (6-14) Blood Urea Nitrogen 25 mg/dL (7-20) Creatinine 1.4 mg/dL (0.6-1.0) Estimated GFR (Cockcroft-Gault) 46.1 Glucose Level 156 mg/dL (70-99) Calcium Level 8.9 mg/dL (8.5-10.1) Magnesium Level 2.6 mg/dL (1.8-2.4) O2 Saturation 98 % (92-99) Arterial Blood pH 7.46 (7.35-7.45) Arterial Blood pCO2 at Patient Temp 42 mmHg (35-46) Arterial Blood pO2 at Patient Temp 105 mmHg (65-108) Arterial Blood HCO3 29 mmol/L (21-28) Arterial Blood Base Excess 5 mmol/L (-3-3) FiO2 35% vent Medications Active Scripts Medications Dose Route/Sig Max Daily Dose Days Date Category Dose Instructions Voltaren (Diclofenac Sodium) 100 Gm Gel..gram. 1 Gm TP QID 30 12/10/20 Reported apply to affected area(s) Oxycodone Hcl 5 Mg Capsule 5 Mg PO PRN Q6HRS PRN 12/08/20 Reported Nystatin 15 Gm Powder 1 [place] TP BID 7 12/08/20 Reported apply to affected area(s) Ondansetron Odt (Ondansetron) 4 Mg Tab.rapdis 1 Tab PO PRN Q8HRS PRN 11/05/20 Reported Reglan (Metoclopramide Hcl) 10 Mg Tablet 1 Tab PO QID 30 11/05/20 Reported before food and bedtime Pantoprazole Sodium (Pantoprazole Sodium) 40 Mg Tablet.dr 40 Mg PO BIDAC 30 06/21/20 Rx Losartan Potassium 100 Mg Tablet 100 Mg PO DAILY 05/03/20 Reported Aspirin 325 Mg Tablet 1 Tab PO DAILY 05/03/20 Reported Metformin Hcl 500 Mg Tablet 500 Mg PO BIDWMEALS 05/03/20 Reported Bumetanide 1 Mg Tablet 1 Mg PO BID 04/02/20 Reported Insulin Aspart 100 Unit/1 Ml Vial 60 Unit SQ TIDAC 04/02/20 Reported novolg flex pen Isosorbide Mononitrate Er (Isosorbide Mononitrate) 120 Mg Tab.er.24h 120 Mg PO DAILY 04/02/20 Reported NITROGLYCERIN SubLingual (Nitroglycerin) 0.4 Mg Tab.subl 0.4 Mg SL PRN Q5MIN PRN 04/02/20 Reported Albuterol Sulfate Neb Soln (Albuterol Sulfate) 2.5 Mg/3 Ml Vial.neb 2.5 Mg NEB Q4-6HRS PRN 04/02/20 Reported Levemir Flextouch (Insulin Detemir) 100 Unit/1 Ml Insuln.pen 60 Unit SQ HS 04/02/20 Reported Hydralazine Hcl 25 Mg Tablet 25 Mg PO BID 04/02/20 Reported Fluticasone Propionate Nasal Polo (Fluticasone Propionate) 16 Gm Polo.susp 2 Polo NS DAILY 06/18/19 Reported Zolpidem Tartrate 5 Mg Tablet 5 Mg PO PRN QHS PRN 06/18/19 Reported Amlodipine Besylate 10 Mg Tablet 10 Mg PO DAILY 06/18/19 Reported Gabapentin 600 Mg Tablet 600 Mg PO BID 06/18/19 Reported Potassium Chloride (Potassium Chloride) 20 Meq Tablet.er 20 Meq PO BID 06/18/19 Reported Clopidogrel (Clopidogrel Bisulfate) 75 Mg Tablet 75 Mg PO DAILYWBKFT 75 11/10/17 Rx Proair Respiclick (Albuterol Sulfate) 90 Mcg Aer.pow.ba 2 Puff IH PRN Q4-6HRS PRN 09/08/16 Reported Cyclobenzaprine Hcl 10 Mg Tablet 1 Tab PO BID PRN 09/08/16 Reported Requip (Ropinirole Hcl) 1 Mg Tablet 1 Tab PO QHS 09/08/16 Reported Crestor (Rosuvastatin Calcium) 20 Mg Tablet 20 Mg PO HS 10/02/15 Reported LAST DOSE: 10/01/15 BEDTIME NEXT DOSE: 10/02/15 BEDTIME Oxybutynin Chloride 5 Mg Tablet 1 Tab PO DAILY 10/02/15 Reported LAST DOSE: 10/02/15 AM NEXT DOSE: 10/03/15 AM Comments CXR reviewed Resolution of left pleural effusion. Unchanged bilateral opacities. CXR 01/07 IMPRESSION: 1. Diffuse interstitial prominence may be seen with interstitial pulmonary edema or atypical infectious/inflammatory process. 2. Support lines and tubes as above. 3. Mild cardiomegaly. Impression . 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 Echo 12/2019 with LVEF 45%, improved on cath on 12/07 Coronary artery disease with recent -- cath 12/07 showed patent long stented proximal to distal LAD. No lesions needing intervention were noted. Echo with LVEF 55 to 60%. Type 2 diabetes. Chronic obstructive pulmonary disease. Morbid obesity. Hypertension. Obstructive sleep apnea. MIRIAM cr trending down Plan . UPDATED 01/20/21 no response no sedation for days Continue current vent support in AC mode --setting reviewed trach 01/22 Follow ABG/CXR-- no change Follow surgery recs-- Trach planned for 01/22/21 Follow Nephrology recs-- depakote, seizure precautions per neuology DVT/GI PPX-- sub q heparin D/W RN and RT prognosis poor FULL CODE neurology D/W family on 01/18, remains aggressive care full code UPDATED 01/19/21 no response off sedation Continue current vent support in AC mode --setting reviewed trach 01/22 Follow ABG/CXR-- no change Follow surgery recs-- Trach planned for 01/22/21 Follow Nephrology recs-- depakote, seizure precautions per neuology DVT/GI PPX-- sub q heparin D/W RN and RT prognosis poor FULL CODE neurology D/W family on 01/18, remains aggressive care full code UPDATED 01/18/21 No clinical change Continue current vent support in AC mode --setting reviewed Follow ABG/CXR-- no change Follow surgery recs-- Trach planned for 01/22/21 Follow Nephrology recs--depakote, seizure precautions DVT/GI PPX-- sub q heparin D/W RN and RT FULL CODE neurology D/W family again today, remains aggressive care UPDATED 01/17/21 No clinical change Continue current vent support in AC mode --setting reviewed Follow ABG/CXR-- no change Follow ID recs--now off ABX Follow surgery recs-- Trach planned for 01/22/21 Follow GI recs- planned for PEG Follow Nephrology recs--depakote, seizure precautions DVT/GI PPX-- sub q heparin D/W RN and RT FULL CODE UPDATED 01/16/21 No clinical change Continue current vent support in AC mode -- Follow ID recs--now off ABX Follow surgery recs-- Trach planned Follow GI recs- planned for PEG Follow cardiology recs--no further work at this time Follow Nephrology recs--depakote, seizure precautions DVT/GI PPX-- sub q heparin D/W RN and RT FULL CODE UPDATED 01/15/21 Continue current vent support in AC mode --12/450/40% and PEEP of 5 Follow ID recs--now off ABX Follow surgery recs-- recommends comfort measures, considering trach 01/22/21 Follow GI recs- planned for PEG this week Follow cardiology recs--no further work at this time Follow Nephrology recs--depakote, seizure precautions DVT/GI PPX-- sub q heparin Social work for DC planning D/W RN and RT FULL CODE DAYRON EDWARD MD Jan 20, 2021 09:39
[2021-01-20] MEDS: VALPROIC ACID (AS SODIUM SALT) 750 MG in IV DEXTROSE 5% 50 ML IV SCH ×2 (10:15→22:07)
[2021-01-20] MEDS: hydrALAZINE 25 MG TABLET PO SCH ×2 (10:20→22:05)
[2021-01-20] MEDS: ASPIRIN CHEWABLE 81 MG TABLET. PO SCH (10:20)
[2021-01-20] MEDS: ISOSORBIDE MONONITRATE 20 MG TABLET PO SCH ×2 (10:21→14:32)
[2021-01-20] MEDS: CLOPIDOGREL BISULFATE 75 MG TABLET PO SCH (10:21)
[2021-01-20] MEDS: METOPROLOL TART IMMED RELEASE 25 MG TABLET. PO SCH ×2 (10:21→22:07)
[2021-01-20] MEDS: LOSARTAN POTASSIUM 50 MG TABLET. PO SCH (10:22)
--- NOTE | 2021-01-20 13:13 | PDOC ---
[facility] PROGRESS NOTE Date of Service DOS: DATE: 01/20/21 TIME: 13:12 Chief Complaint Chief Complaint Respiratory failure Status post CODE BLUE Severe anoxic brain injury Pneumonia Hyperkalemia Sepsis Obesity Protein malnutrition Hypertensive urgency Seizures CHF COPD History of Present Illness History of Present Illness 01/20/2021 Patient seen and examined in the ICU She is still on the vent AC/12/400/30 5% with 5 of PEEP On IV Depakote Mitts for patient safety She is still critically ill and has probable persistent vegetative state Chart reviewed Discussed with RN 01/19/2021 Patient seen and examined in the ICU She remains critically ill Still not requiring sedation Pupils are actually small but no response Neurologically she is totally unresponsive Right arm with less twitching She is on IV Depakote Vent settings as follows AC/12/40/30 5% with 5 of PEEP She is still scheduled for tracheostomy on 2020 She will probably need a PEG tube as well but will await our trach first Has Johnson bedside drainage OG running at 45 cc an hour with Vital 01/18/2021 Patient seen and examined in the ICU She is on the vent AC/12/450/30 5% with 5 of PEEP Has IV Depakote OG feeds running at 45 cc an hour Discussed with RN Discussed with case management Chart reviewed She remains critically ill Probable peripheral persistent vegetative state but family wants everything done 01/17/2021 Patient seen and examined in the ICU She remains on the ventilator AC/12/450/30 5% with 5 of PEEP On IV Depakote SCDs are in place Right arm still twitching Pupils are fixed with minimal reaction Discussed with RN Chart reviewed She remains critically ill and is in a persistent vegetative state We would like to move towards hospice but the family would like us to move forward with tracheostomy (she is tentatively scheduled for 01/22/2021) 01/16/2021 Patient seen and examined in the ICU She remains on the ventilator AC/12/450/40 with 5 of PEEP Has Johnson bedside drainage Has SCDs in place OG running at 45 cc an hour Has Depakote IV hanging Discussed with RN Chart reviewed She remains critically ill 01/15/2021 Patient seen and examined in the ICU Discussed with RN Chart reviewed Discussed with case management The patient remains on the ventilator AC/12/450/40 percent with 5 of PEEP Scheduled to get tracheostomy on 01/22/2021 OG running at 35 cc an hour She has SCDs in place She has a Johnson to bedside drainage On Depakote drip Her right arm is twitching She remains critically ill with a poor prognosis but the family wants everything still done 01/14/2021 Patient seen and examined in the ICU She remains mechanically ventilated and is unresponsive despite no sedation AC/12/450/40 percent with 5 of PEEP Has IV Zosyn hanging Has Johnson to bedside drainage Discussed with RN Discussed with case management Chart reviewed She remains critically ill Ms Castro is a 60 year old female w/ PMHx Asthma, CAD s/p stenting x6, CHF, COPD, Diabetes-Type II, High Cholesterol, Hypertension, neuropathy, morbid obesity, RLS, insomnia who presented to ER after she was brought here by EMS from home after she was found unresponsive in her bed by her family. Patient was last known normal was 9 AM on 01/03/2021. family tried to call her but could not get a hold of her so they show up to her house, found her unresponsive in her bed. Per family, patient had a CPAP machine on but the mask slid off her face, there was lot of mucus and material around her face and on her neck area. Patient was responsive to painful stimuli but was very confused, did not follow command. EMS were called, they found her in respiratory distress, GCS of 7-8, they bagged her and brought her here. Upon arrival to room, patient was unresponsive to verbal, severe respiratory distress, need emergent intubation. During the difficult intubation patient became bradycardic and CODE BLUE was initiated. Patient subsequently went into ventricular fibrillation, underwent shock therapy and was initiated on intravenous amiodarone infusion and admitted to ICU. She has been admitted to [place] [id number] for intractable nausea and vomiting and PMC once has had this as well as intense pruritis for 6 months. Was seen and treated for same in November, underwent cardiac cath and GI consultation at the time, was discharged home. Her family stated that patient was seen here 2 days prior for epigastric abdominal pain. It was recommended that she need to stay in the hospital however patient did not want to stay in the hospital so she went home. AMA. 01/05: No acute events overnight. Patient seen and examined bedside. Patient remains intubated. Without sedation. Vent settings at 18/450/40/5. Patient is not responding to painful stimuli at this time. There is a lot of secretions. Currently not on any vasopressors 01/06: No acute events overnight. Patient withdraws to pain. Still intubated with vent settings at 16/450/40/5. Not on any sedation at this time. 01/07: No overnight events. Afebrile. On vent with no sedation for 48 hours FiO2 40% PEEP of 5. Not requiring vasopressors. Not making meaningful eye contact or meaningful movement. Minimal reflexes. Breathing over the vent. Discussed with son, Lance overall poor prognosis given what is likely anoxic encephalopathy. He wants to discuss with his aunt Liss and sister Camille future goals of care. 01/08: No events. Afebrile. Still with no meaningful activity no sedation on vent FiO2 40% PEEP of 5, ABG 7.45/46/142. No BM. Adequate UOP. No residuals on feeds. EEG interpreted by neurology as abnormal because of a severe diffuse disturbance of cerebral activity, consistent with a very poor prognosis from anoxic encephalopathy. 01/09: Overnight ventilated no significant activity he still off sedation. K3.2. Vent FiO2 40% PEEP of 5. Chest radiograph unchanged from prior. Right hand with new twitching, concerning for seizure activity, d/w neurology. D/w sons goals of care and grim neurologic prognosis. 01/10: Afebrile, K3.1. ABG 7.4 7/40/129 on 40% FiO2. CXR stable. Still with right hand tremor. Long d/w son, Lance, and his significant other. 01/11: No overnight events. Chest radiograph stable, ABG on 40% FiO2 and PEEP 5 was 7.48/46/137. Heart rate slowing down and blood pressure coming up a bit. Glucose stable. No sedating meds for over 96 hours. No meaningful interaction. Babinski reflexes demonstrated to family. 01/12: Afebrile overnight. Creatinine 1.3, Hb 9.2. Having more PVCs on monitor today. On 40% FiO2 PEEP of 5. Blood pressure little elevated requiring additi onal IV dose of hydralazine. Still with right arm twitching and irregular mouth movement. No meaningful neurologic interaction. Afebrile overnight. Chest radiograph appears relatively unchanged from prior. Still with multiple PVCs. On vent without sedation since 01/04/2021. FiO2 40% PEEP 5 ABG 7.46/49/129. Still with right arm twitching, more severe. Attempted to call Lance, son and DPOA, no answer, voicemail full, but last evening he did come in and request to move forward with trach and PEG referrals, does not want to discuss end-of-life care with me anymore Vitals/I&O Vitals/I&O: Vital Signs Date Time Temp Pulse Resp B/P (MAP) Pulse Ox O2 Delivery O2 Flow Rate FiO2 01/20/21 11:15 100 Ventilator 01/20/21 10:22 88 138/62 01/20/21 09:00 18 01/20/21 08:00 99.3 99.3 I & O 01/19/21 01/19/21 01/20/21 15:00 23:00 07:00 Intake Total 57.5 ml 837.5 ml 321 ml Output Total 300 ml 535 ml 330 ml Balance -242.5 ml 302.5 ml -9 ml Physical Exam Physical Exam: GENERAL: Intubated, opens eyes transiently, does not follow any commands HEENT: Normocephalic, atraumatic. Tongue protruded, ETT /OGT + NECK: Supple though fullness due to body habitus. LUNGS: Decreased breath sounds. No wheezing. HEART: S1, S2. Distant heart sounds. ABDOMEN: Obese. Bowel sounds present. EXTREMITIES: Minimal edema. No cyanosis. NEUROLOGIC: Intubated,right upper extremity twitching Left IJ clean General: No acute distress Heart: Regular rate Lungs: Crackles Abdomen: Soft Extremities: Other (Trace edema) Labs Labs: Laboratory Tests Test 01/20/21 00:13 01/20/21 06:35 01/20/21 08:00 Glucose (Fingerstick) 124 mg/dL (70-99) White Blood Count 12.1 x10^3/uL (4.0-11.0) Red Blood Count 3.53 x10^6/uL (3.50-5.40) Hemoglobin 8.8 g/dL (12.0-15.5) Hematocrit 28.3 % (36.0-47.0) Mean Corpuscular Volume 80 fL (79-100) Mean Corpuscular Hemoglobin 25 pg (25-35) Mean Corpuscular Hemoglobin Concent 31 g/dL (31-37) Red Cell Distribution Width 16.4 % (11.5-14.5) Platelet Count 409 x10^3/uL (140-400) Sodium Level 143 mmol/L (136-145) Potassium Level 4.2 mmol/L (3.5-5.1) Chloride Level 106 mmol/L (98-107) Carbon Dioxide Level 32 mmol/L (21-32) Anion Gap 5 (6-14) Blood Urea Nitrogen 25 mg/dL (7-20) Creatinine 1.4 mg/dL (0.6-1.0) Estimated GFR (Cockcroft-Gault) 46.1 Glucose Level 156 mg/dL (70-99) Calcium Level 8.9 mg/dL (8.5-10.1) Magnesium Level 2.6 mg/dL (1.8-2.4) O2 Saturation 98 % (92-99) Arterial Blood pH 7.46 (7.35-7.45) Arterial Blood pCO2 at Patient Temp 42 mmHg (35-46) Arterial Blood pO2 at Patient Temp 105 mmHg (65-108) Arterial Blood HCO3 29 mmol/L (21-28) Arterial Blood Base Excess 5 mmol/L (-3-3) FiO2 35% vent Assessment and Plan Assessmemt and Plan Problems Medical Problems: (1) Acute renal failure Status: Acute (2) Altered mental status Status: Acute (3) Aspiration pneumonia Status: Acute (4) Hyperkalemia Status: Acute (5) Respiratory failure Status: Acute (6) Sepsis Status: Acute Respiratory failure Status post CODE BLUE Severe anoxic brain injury Persistent vegetative state Pneumonia Hyperkalemia Sepsis Obesity Protein malnutrition Hypertensive urgency Seizures CHF COPD Plan ICU monitoring Vent weaning if possible but unlikely Continue the IV Zosyn Continue Johnson to bedside drainage Her prognosis is extremely poor Surgery nephrology cardiology nephrology and neuro following For now trend labs Home meds Continue OG feeds DVT prophylaxis We would like to move towards hospice but family prefers tracheostomy (scheduled for tracheostomy on 01/22/2021) Will likely need a PEG tube after that and then moved to a long-term care facility? Continue Keppra Full code per family request despite poor prognosis CC time 33minutes Comment Review of Relevant I have reviewed the following items shady (where applicable) has been applied. Justifications for Admission Other Justification cardiac arrest KATHE MARIE III DO Jan 20, 2021 13:13
[2021-01-20] MEDS: GLYCOPYRROLATE 1 MG/5 ML VIAL. IV PRN (14:42)
[2021-01-20] MEDS: FAMOTIDINE 20 MG/2 ML VIAL IVP SCH (22:06)
[2021-01-20] MEDS: ATORVASTATIN CALCIUM 40 MG TABLET. PO SCH (22:07)
[2021-01-21] VITALS (25 sets, daily range): BP systolic 97–179; BP diastolic 49–77
[2021-01-21] MEDS: HEPARIN for SUB-Q USE 5,000 UNIT/ML VIAL. SQ SCH ×3 (05:44→22:55)
[2021-01-21] MEDS: hydrALAZINE 20 MG/ML VIAL. IVP PRN (05:47)
[2021-01-21] MEDS: ISOSORBIDE MONONITRATE 20 MG TABLET PO SCH ×2 (08:11→13:46)
[2021-01-21] MEDS: LOSARTAN POTASSIUM 50 MG TABLET. PO SCH (08:12)
[2021-01-21] MEDS: hydrALAZINE 25 MG TABLET PO SCH ×2 (08:13→20:39)
[2021-01-21] MEDS: METOPROLOL TART IMMED RELEASE 25 MG TABLET. PO SCH ×2 (08:13→20:37)
[2021-01-21] MEDS: GLYCOPYRROLATE 1 MG/5 ML VIAL. IV PRN (08:15)
[2021-01-21] MEDS: VALPROIC ACID (AS SODIUM SALT) 750 MG in IV DEXTROSE 5% 50 ML IV SCH ×2 (08:17→20:37)
--- NOTE | 2021-01-21 09:09 | PDOC ---
DATE OF SERVICE: DOS: DATE: 01/21/21 TIME: 09:07 SUBJECTIVE ROS Follow-up for CKD 3 Patient remains intubated on the vent OBJECTIVE Vital Signs Vital Signs Date Time Temp Pulse Resp B/P (MAP) Pulse Ox O2 Delivery O2 Flow Rate FiO2 01/21/21 08:13 88 142/54 01/21/21 08:00 Mechanical Ventilator 01/21/21 08:00 97.8 34 100 97.8 I & 0 Intake and Output 01/21/21 07:00 Intake Total 1339.5 ml Output Total 1040 ml Balance 299.5 ml IV Total 57.5 ml Tube Feeding 872 ml Other 410 ml Output Urine Total 1040 ml Gastric Drainage Total 0 ml PHYSICAL EXAM Physical Exam General Appearance: Sedated intubated on the vent, somewhat obese - Spanish female Neck: No JVD or JVP Chest: CTA Etienne Heart: S1 S2 Abdomen - Soft NTND obese abdomen Extremities - No Edema DIAGNOSIS/ASSESSMENT Assessment & Plan MIRIAM-RESOLVED CKD STAGE 3: Appears to be relatively stable in the 1.2 to 1.4 range. No creatinine for today yet ACUTE RESP FAILURE: Remains on the ventilator presumably from pneumonia Underlying risk factors for CKD include DM II, DIONNE, OBESITY, hypertension We will follow off and on COMMENT/RELEVANT DATA Meds Current Medications Medications (Trade) Dose Ordered Sig/Lui Start Time Stop Time Status Last Admin Dose Admin Amiodarone HCl (Cordarone) 300 mg STK-MED ONCE 01/04/21 11:00 01/07/21 17:12 DC Amiodarone HCl 450 mg/Dextrose 259 ml @ 0 mls/hr 1X ONCE 01/06/21 17:00 01/06/21 17:01 DC 01/06/21 17:05 17 MLS/HR Aspirin (Aspirin Chewable) 81 mg DAILYWBKFT 01/08/21 08:30 01/20/21 10:20 81 MG Aspirin (Blessing Aspirin) 325 mg DAILY 01/08/21 09:00 01/09/21 09:16 DC 01/08/21 08:12 325 MG Atorvastatin Calcium (Lipitor) 80 mg QHS 01/07/21 21:00 01/20/21 22:07 80 MG Bisacodyl (Dulcolax Supp) 10 mg PRN DAILY PRN 01/04/21 14:00 Clopidogrel Bisulfate (Plavix) 75 mg DAILYWBKFT 01/08/21 08:00 01/20/21 10:21 75 MG Daptomycin 600 mg/ Sodium Chloride 50 ml @ 100 mls/hr Q24H 01/08/21 16:00 01/12/21 09:34 DC 01/11/21 15:56 100 MLS/HR Dextrose (Dextrose 50%-Water Syringe) 12.5 gm PRN Q15MIN PRN 01/05/21 18:15 Epinephrine HCl (EPINEPHrine SYRINGE) 2 mg STK-MED ONCE 01/04/21 11:00 01/07/21 17:12 DC Etomidate (Amidate) 20 mg 1X ONCE 01/04/21 12:45 01/04/21 12:46 DC 01/04/21 11:02 20 MG Famotidine (Pepcid Vial) 20 mg QHS 01/04/21 21:00 01/20/21 22:06 20 MG Fentanyl Citrate (Fentanyl 2ml Vial) 50 mcg PRN Q5MIN PRN 01/22/21 06:00 01/22/21 19:00 Furosemide (Lasix) 40 mg 1X ONCE 01/10/21 17:45 01/10/21 17:46 DC 01/10/21 17:48 40 MG Glycopyrrolate (Robinul) 1 mg PRN DAILY PRN 01/08/21 08:45 01/21/21 08:15 1 MG Heparin Sodium (Porcine) (Heparin Sodium) 5,000 unit Q8HRS 01/04/21 14:00 01/21/21 05:44 5,000 UNIT Hydralazine HCl (Apresoline Inj) 10 mg PRN Q6HRS PRN 01/04/21 19:45 01/21/21 05:47 10 MG Hydralazine HCl (Apresoline) 25 mg BID 01/07/21 21:00 01/21/21 08:13 25 MG Hydromorphone HCl (Dilaudid) 0.5 mg PRN Q10MIN PRN 01/22/21 06:00 01/22/21 19:00 Insulin Human Lispro (HumaLOG) 0-5 UNITS PRN Q6HRS PRN 01/17/21 13:45 Insulin Human Regular (HumuLIN R VIAL) 10 unit 1X ONCE 01/04/21 12:00 01/04/21 12:01 DC 01/04/21 12:52 10 UNIT Isosorbide Mononitrate (Imdur) 120 mg DAILY 01/08/21 09:00 01/08/21 08:16 DC Isosorbide Mononitrate (Ismo) 20 mg BID92 01/08/21 09:00 01/21/21 08:11 20 MG Linezolid/Dextrose 300 ml @ 300 mls/hr Q12HR 01/04/21 21:00 01/08/21 10:41 DC 01/07/21 21:23 300 MLS/HR Lorazepam (Ativan Inj) 2 mg PRN Q2HRS PRN 01/04/21 19:30 01/08/21 08:16 DC 01/05/21 23:30 2 MG Losartan Potassium (Cozaar) 100 mg DAILY 01/08/21 09:00 01/21/21 08:12 100 MG Meropenem 500 mg/ Sodium Chloride 50 ml @ 100 mls/hr Q8HRS 01/04/21 18:00 Cancel Metoprolol Succinate (Toprol Xl) 25 mg DAILY 01/08/21 09:00 01/08/21 07:44 DC Metoprolol Tartrate (Lopressor) 12.5 mg BID 01/08/21 09:00 01/21/21 08:13 12.5 MG Midazolam HCl 100 ml @ 1 mls/hr CONT PRN 01/05/21 02:00 01/08/21 08:16 DC 01/05/21 02:00 4 MLS/HR Midazolam HCl (Versed) 5 mg 1X ONCE 01/04/21 12:45 01/04/21 12:46 DC 01/04/21 11:30 5 MG Morphine Sulfate (Morphine Sulfate) 1 mg PRN Q10MIN PRN 01/22/21 06:00 01/22/21 19:00 Multi-Ingred Cream/Lotion/Oil/ Oint (Artificial Tears Eye Ointment) 1 ashutosh PRN Q1HR PRN 01/07/21 13:00 01/07/21 14:14 1 ASHUTOSH Ondansetron HCl (Zofran) 4 mg PRN Q6HRS PRN 01/04/21 14:00 Piperacillin Sod/ Tazobactam Sod (Zosyn Per Pharmacy) 1 each PRN DAILY PRN 01/04/21 14:00 01/04/21 17:48 DC Piperacillin Sod/ Tazobactam Sod 2.25 gm/Sodium Chloride 50 ml @ 100 mls/hr Q8HRS 01/04/21 22:00 01/08/21 07:50 DC 01/08/21 06:01 100 MLS/HR Piperacillin Sod/ Tazobactam Sod 3.375 gm/Sodium Chloride 50 ml @ 100 mls/hr Q6HRS 01/08/21 12:00 01/15/21 07:56 DC 01/15/21 05:29 100 MLS/HR Potassium Bicarbonate (Potassium Effervescent Tablet) 40 meq 1X ONCE 01/10/21 19:00 01/10/21 19:01 DC 01/10/21 19:15 40 MEQ Potassium Chloride/Water 100 ml @ 100 mls/hr Q1H 01/08/21 12:00 01/08/21 13:59 DC 01/08/21 13:37 100 MLS/HR Prochlorperazine Edisylate (Compazine) 5 mg PACU PRN PRN 01/22/21 06:00 01/22/21 19:00 Ringer's Solution 1,000 ml @ 30 mls/hr Q24H 01/22/21 06:00 01/22/21 17:59 UNV Rocuronium [place] (Zemuron) 100 mg 1X ONCE 01/04/21 12:45 01/04/21 12:46 DC 01/04/21 11:33 100 MG Scopolamine (Transderm-Scop) 1 patch Q3DAYS 01/05/21 17:00 01/08/21 08:16 DC 01/08/21 08:08 1 PATCH Sodium Bicarbonate (Sodium Bicarb Adult 8.4% Syr) 50 meq 1X ONCE 01/04/21 12:00 01/04/21 12:01 DC 01/04/21 12:55 50 MEQ Sodium Chloride (Normal Saline Flush) 3 ml QSHIFT PRN 01/04/21 14:00 Succinylcholine Chloride (Anectine) 100 mg 1X ONCE 01/04/21 12:45 01/04/21 12:46 DC 01/04/21 11:03 100 MG Valproic Acid 1000 mg/Dextrose 60 ml @ 60 mls/hr 1X ONCE 6/18/21 19:30 01/04/21 20:29 DC 01/04/21 19:30 60 MLS/HR Valproic Acid 500 mg/Dextrose 55 ml @ 55 mls/hr Q12HR 01/05/21 09:00 01/05/21 17:28 DC 01/05/21 09:40 55 MLS/HR Valproic Acid 750 mg/Dextrose 57.5 ml @ 57.5 mls/hr Q12HR 01/05/21 21:00 01/21/21 08:17 57.5 MLS/HR Results All relevant outside records, renal labs, imaging studies, telemetry/EKG's were reviewed. Justicifation of Admission Dx: Justifications for Admission: Justification of Admission Dx: Yes ANDRE CRUZ MD Jan 21, 2021 09:09
[2021-01-21 09:42] LABS: BASE EXCESS ABG 5 mmol/L (-3-3); HCO3 ABG 29 mmol/L (21-28); PCO2 ABG 40 mmHg (35-46); PO2 ABG 130 mmHg (65-108); SAT O2 ABG 98 % (92-99)
[2021-01-21 09:45] LABS: FIO2 ABG 35
[2021-01-21] MEDS: CLOPIDOGREL BISULFATE 75 MG TABLET PO SCH (10:25)
[2021-01-21] MEDS: ASPIRIN CHEWABLE 81 MG TABLET. PO SCH (10:25)
--- NOTE | 2021-01-21 11:24 | PDOC ---
PULMONARY PROGRESS NOTES DATE: 01/21/21 TIME: 11:19 Subjective on vent support AC mode no response on fi02 35% peep 5 no sedation mod ett secretion Vitals Vital Signs Date Time Temp Pulse Resp B/P (MAP) Pulse Ox O2 Delivery O2 Flow Rate FiO2 01/21/21 11:08 82 24 109/49 (69) 100 Ventilator 01/21/21 08:00 97.8 97.8 Comments unable to obtain 2/2 clinical state HEENT: Other (nc at perrl nose clear orally intubated neck no lad no thyromegaly ) Lungs: Crackles Cardiovascular: S1, S2 Abdomen: Soft, Non-tender, Other (no mass obese) Extremities: Other (edema) Skin: Warm Labs Laboratory Tests Test 01/20/21 00:13 01/20/21 06:35 01/20/21 08:00 01/21/21 08:00 Glucose (Fingerstick) 124 mg/dL (70-99) White Blood Count 12.1 x10^3/uL (4.0-11.0) Red Blood Count 3.53 x10^6/uL (3.50-5.40) Hemoglobin 8.8 g/dL (12.0-15.5) Hematocrit 28.3 % (36.0-47.0) Mean Corpuscular Volume 80 fL (79-100) Mean Corpuscular Hemoglobin 25 pg (25-35) Mean Corpuscular Hemoglobin Concent 31 g/dL (31-37) Red Cell Distribution Width 16.4 % (11.5-14.5) Platelet Count 409 x10^3/uL (140-400) Sodium Level 143 mmol/L (136-145) Potassium Level 4.2 mmol/L (3.5-5.1) Chloride Level 106 mmol/L (98-107) Carbon Dioxide Level 32 mmol/L (21-32) Anion Gap 5 (6-14) Blood Urea Nitrogen 25 mg/dL (7-20) Creatinine 1.4 mg/dL (0.6-1.0) Estimated GFR (Cockcroft-Gault) 46.1 Glucose Level 156 mg/dL (70-99) Calcium Level 8.9 mg/dL (8.5-10.1) Magnesium Level 2.6 mg/dL (1.8-2.4) O2 Saturation 98 % (92-99) 98 % (92-99) Arterial Blood pH 7.46 (7.35-7.45) 7.48 (7.35-7.45) Arterial Blood pCO2 at Patient Temp 42 mmHg (35-46) 40 mmHg (35-46) Arterial Blood pO2 at Patient Temp 105 mmHg (65-108) 130 mmHg (65-108) Arterial Blood HCO3 29 mmol/L (21-28) 29 mmol/L (21-28) Arterial Blood Base Excess 5 mmol/L (-3-3) 5 mmol/L (-3-3) FiO2 35% vent 35 Laboratory Tests Test 01/21/21 08:00 O2 Saturation 98 % (92-99) Arterial Blood pH 7.48 (7.35-7.45) Arterial Blood pCO2 at Patient Temp 40 mmHg (35-46) Arterial Blood pO2 at Patient Temp 130 mmHg (65-108) Arterial Blood HCO3 29 mmol/L (21-28) Arterial Blood Base Excess 5 mmol/L (-3-3) FiO2 35 Medications Active Scripts Medications Dose Route/Sig Max Daily Dose Days Date Category Dose Instructions Voltaren (Diclofenac Sodium) 100 Gm Gel..gram. 1 Gm TP QID 30 12/10/20 Reported apply to affected area(s) Oxycodone Hcl 5 Mg Capsule 5 Mg PO PRN Q6HRS PRN 12/08/20 Reported Nystatin 15 Gm Powder 1 [place] TP BID 7 12/08/20 Reported apply to affected area(s) Ondansetron Odt (Ondansetron) 4 Mg Tab.rapdis 1 Tab PO PRN Q8HRS PRN 11/05/20 Reported Reglan (Metoclopramide Hcl) 10 Mg Tablet 1 Tab PO QID 30 11/05/20 Reported before food and bedtime Pantoprazole Sodium (Pantoprazole Sodium) 40 Mg Tablet.dr 40 Mg PO BIDAC 30 06/21/20 Rx Losartan Potassium 100 Mg Tablet 100 Mg PO DAILY 05/03/20 Reported Aspirin 325 Mg Tablet 1 Tab PO DAILY 05/03/20 Reported Metformin Hcl 500 Mg Tablet 500 Mg PO BIDWMEALS 05/03/20 Reported Bumetanide 1 Mg Tablet 1 Mg PO BID 04/02/20 Reported Insulin Aspart 100 Unit/1 Ml Vial 60 Unit SQ TIDAC 04/02/20 Reported novolg flex pen Isosorbide Mononitrate Er (Isosorbide Mononitrate) 120 Mg Tab.er.24h 120 Mg PO DAILY 04/02/20 Reported NITROGLYCERIN SubLingual (Nitroglycerin) 0.4 Mg Tab.subl 0.4 Mg SL PRN Q5MIN PRN 04/02/20 Reported Albuterol Sulfate Neb Soln (Albuterol Sulfate) 2.5 Mg/3 Ml Vial.neb 2.5 Mg NEB Q4-6HRS PRN 04/02/20 Reported Levemir Flextouch (Insulin Detemir) 100 Unit/1 Ml Insuln.pen 60 Unit SQ HS 04/02/20 Reported Hydralazine Hcl 25 Mg Tablet 25 Mg PO BID 04/02/20 Reported Fluticasone Propionate Nasal Endeavor (Fluticasone Propionate) 16 Gm Endeavor.susp 2 Endeavor NS DAILY 06/18/19 Reported Zolpidem Tartrate 5 Mg Tablet 5 Mg PO PRN QHS PRN 06/18/19 Reported Amlodipine Besylate 10 Mg Tablet 10 Mg PO DAILY 06/18/19 Reported Gabapentin 600 Mg Tablet 600 Mg PO BID 06/18/19 Reported Potassium Chloride (Potassium Chloride) 20 Meq Tablet.er 20 Meq PO BID 06/18/19 Reported Clopidogrel (Clopidogrel Bisulfate) 75 Mg Tablet 75 Mg PO DAILYWBKFT 75 11/10/17 Rx Proair Respiclick (Albuterol Sulfate) 90 Mcg Aer.pow.ba 2 Puff IH PRN Q4-6HRS PRN 09/08/16 Reported Cyclobenzaprine Hcl 10 Mg Tablet 1 Tab PO BID PRN 09/08/16 Reported Requip (Ropinirole Hcl) 1 Mg Tablet 1 Tab PO QHS 09/08/16 Reported Crestor (Rosuvastatin Calcium) 20 Mg Tablet 20 Mg PO HS 10/02/15 Reported LAST DOSE: 10/01/15 BEDTIME NEXT DOSE: 10/02/15 BEDTIME Oxybutynin Chloride 5 Mg Tablet 1 Tab PO DAILY 10/02/15 Reported LAST DOSE: 10/02/15 AM NEXT DOSE: 10/03/15 AM Comments CXR reviewed Resolution of left pleural effusion. Unchanged bilateral opacities. CXR 01/07 IMPRESSION: 1. Diffuse interstitial prominence may be seen with interstitial pulmonary edema or atypical infectious/inflammatory process. 2. Support lines and tubes as above. 3. Mild cardiomegaly. Impression . 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 Echo 12/2019 with LVEF 45%, improved on cath on 12/07 Coronary artery disease with recent -- cath 12/07 showed patent long stented proximal to distal LAD. No lesions needing intervention were noted. Echo with LVEF 55 to 60%. Type 2 diabetes. Chronic obstructive pulmonary disease. Morbid obesity. Hypertension. Obstructive sleep apnea. MIRIAM cr trending down Plan . UPDATED 01/21/21 no response no sedation for 1 week Continue current vent support in AC mode --setting reviewed trach 01/22 Follow ABG/CXR-- no change Follow surgery recs-- Trach planned for 01/22/21 Follow Nephrology recs-- depakote, seizure precautions per neuology DVT/GI PPX-- sub q heparin D/W RN and RT prognosis poor FULL CODE I had a long discussion with both sons. explained to them poor prognosis and quality of care. They both agree not to pursue with trach and proceed with withdrawl of care in am. d/w RN/RT cct 30 min UPDATED 01/20/21 no response no sedation for days Continue current vent support in AC mode --setting reviewed trach 01/22 Follow ABG/CXR-- no change Follow surgery recs-- Trach planned for 01/22/21 Follow Nephrology recs-- depakote, seizure precautions per neuology DVT/GI PPX-- sub q heparin D/W RN and RT prognosis poor FULL CODE neurology D/W family on 01/18, remains aggressive care full code UPDATED 01/19/21 no response off sedation Continue current vent support in AC mode --setting reviewed trach 01/22 Follow ABG/CXR-- no change Follow surgery recs-- Trach planned for 01/22/21 Follow Nephrology recs-- depakote, seizure precautions per neuology DVT/GI PPX-- sub q heparin D/W RN and RT prognosis poor FULL CODE neurology D/W family on 01/18, remains aggressive care full code UPDATED 01/18/21 No clinical change Continue current vent support in AC mode --setting reviewed Follow ABG/CXR-- no change Follow surgery recs-- Trach planned for 01/22/21 Follow Nephrology recs--depakote, seizure precautions DVT/GI PPX-- sub q heparin D/W RN and RT FULL CODE neurology D/W family again today, remains aggressive care UPDATED 01/17/21 No clinical change Continue current vent support in AC mode --setting reviewed Follow ABG/CXR-- no change Follow ID recs--now off ABX Follow surgery recs-- Trach planned for 01/22/21 Follow GI recs- planned for PEG Follow Nephrology recs--depakote, seizure precautions DVT/GI PPX-- sub q heparin D/W RN and RT FULL CODE UPDATED 01/16/21 No clinical change Continue current vent support in AC mode -- Follow ID recs--now off ABX Follow surgery recs-- Trach planned Follow GI recs- planned for PEG Follow cardiology recs--no further work at this time Follow Nephrology recs--depakote, seizure precautions DVT/GI PPX-- sub q heparin D/W RN and RT FULL CODE UPDATED 01/15/21 Continue current vent support in AC mode --12/450/40% and PEEP of 5 Follow ID recs--now off ABX Follow surgery recs-- recommends comfort measures, considering trach 01/22/21 Follow GI recs- planned for PEG this week Follow cardiology recs--no further work at this time Follow Nephrology recs--depakote, seizure precautions DVT/GI PPX-- sub q heparin Social work for DC planning D/W RN and RT FULL CODE KADI PRESTON MD Jan 21, 2021 11:24
--- NOTE | 2021-01-21 14:07 | PDOC ---
[employer] PROGRESS NOTE Date of Service DOS: DATE: 01/21/21 TIME: 14:04 Chief Complaint Chief Complaint Respiratory failure Status post CODE BLUE Severe anoxic brain injury Pneumonia Hyperkalemia Sepsis Obesity Protein malnutrition Hypertensive urgency Seizures CHF COPD History of Present Illness History of Present Illness 01/21/2021 Patient remains intubated in the ICU No change in clinical status overnight remains in vegetative state Initially planned for tracheostomy tomorrow however patient's family has elected to not pursue this anymore and plan to withdraw care in the morning of January 22 Plan discussed with bedside nurse 01/20/2021 Patient seen and examined in the ICU She is still on the vent AC/12/400/30 5% with 5 of PEEP On IV Depakote Mitts for patient safety She is still critically ill and has probable persistent vegetative state Chart reviewed Discussed with RN 01/19/2021 Patient seen and examined in the ICU She remains critically ill Still not requiring sedation Pupils are actually small but no response Neurologically she is totally unresponsive Right arm with less twitching She is on IV Depakote Vent settings as follows AC/12/40/30 5% with 5 of PEEP She is still scheduled for tracheostomy on 2020 She will probably need a PEG tube as well but will await our trach first Has Johnson bedside drainage OG running at 45 cc an hour with Vital 01/18/2021 Patient seen and examined in the ICU She is on the vent AC/12/450/30 5% with 5 of PEEP Has IV Depakote OG feeds running at 45 cc an hour Discussed with RN Discussed with case management Chart reviewed She remains critically ill Probable peripheral persistent vegetative state but family wants everything done 01/17/2021 Patient seen and examined in the ICU She remains on the ventilator AC/12/450/30 5% with 5 of PEEP On IV Depakote SCDs are in place Right arm still twitching Pupils are fixed with minimal reaction Discussed with RN Chart reviewed She remains critically ill and is in a persistent vegetative state We would like to move towards hospice but the family would like us to move forward with tracheostomy (she is tentatively scheduled for 01/22/2021) 01/16/2021 Patient seen and examined in the ICU She remains on the ventilator AC/12/450/40 with 5 of PEEP Has Johnson bedside drainage Has SCDs in place OG running at 45 cc an hour Has Depakote IV hanging Discussed with RN Chart reviewed She remains critically ill 01/15/2021 Patient seen and examined in the ICU Discussed with RN Chart reviewed Discussed with case management The patient remains on the ventilator AC//450/40 percent with 5 of PEEP Scheduled to get tracheostomy on 01/22/2021 OG running at 35 cc an hour She has SCDs in place She has a Johnson to bedside drainage On Depakote drip Her right arm is twitching She remains critically ill with a poor prognosis but the family wants everything still done 01/14/2021 Patient seen and examined in the ICU She remains mechanically ventilated and is unresponsive despite no sedation AC/12/450/40 percent with 5 of PEEP Has IV Zosyn hanging Has Johnson to bedside drainage Discussed with RN Discussed with case management Chart reviewed She remains critically ill Ms Castro is a 60 year old female w/ PMHx Asthma, CAD s/p stenting x6, CHF, COPD, Diabetes-Type II, High Cholesterol, Hypertension, neuropathy, morbid obesity, RLS, insomnia who presented to ER after she was brought here by EMS from home after she was found unresponsive in her bed by her family. Patient was last known normal was 9 AM on 01/03/2021. family tried to call her but could not get a hold of her so they show up to her house, found her unresponsive in her bed. Per family, patient had a CPAP machine on but the mask slid off her face, there was lot of mucus and material around her face and on her neck area. Patient was responsive to painful stimuli but was very confused, did not follow command. EMS were called, they found her in respiratory distress, GCS of 7-8, they bagged her and brought her here. Upon arrival to room, patient was unresponsive to verbal, severe respiratory distress, need emergent intubation. During the difficult intubation patient became bradycardic and CODE BLUE was initiated. Patient subsequently went into ventricular fibrillation, underwent shock therapy and was initiated on intravenous amiodarone infusion and admitted to ICU. She has been admitted to [place] [id number] for intractable nausea and vomiting and PMC once has had this as well as intense pruritis for 6 months. Was seen and treated for same in November, underwent cardiac cath and GI consultation at the time, was discharged home. Her family stated that patient was seen here 2 days prior for epigastric abdominal pain. It was recommended that she need to stay in the hospital [facility] patient did not want to stay in the hospital so she went home. AMA. 01/05: No acute events overnight. Patient seen and examined bedside. Patient remains intubated. Without sedation. Vent settings at 18/450/40/5. Patient is not responding to painful stimuli at this time. There is a lot of secretions. Currently not on any vasopressors 01/06: No acute events overnight. Patient withdraws to pain. Still intubated with vent settings at 16/450/40/5. Not on any sedation at this time. 01/07: No overnight events. Afebrile. On vent with no sedation for 48 hours FiO2 40% PEEP of 5. Not requiring vasopressors. Not making meaningful eye contact or meaningful movement. Minimal reflexes. Breathing over the vent. Discussed with son, Lance overall poor prognosis given what is likely anoxic encephalopathy. He wants to discuss with his aunt Liss and sister Camille future goals of care. 01/08: No events. Afebrile. Still with no meaningful activity no sedation on vent FiO2 40% PEEP of 5, ABG 7.45/46/142. No BM. Adequate UOP. No residuals on feeds. EEG interpreted by neurology as abnormal because of a severe diffuse disturbance of cerebral activity, consistent with a very poor prognosis from anoxic encephalopathy. 01/09: Overnight ventilated no significant activity he still off sedation. K3.2. Vent FiO2 40% PEEP of 5. Chest radiograph unchanged from prior. Right hand with new twitching, concerning for seizure activity, d/w neurology. D/w sons goals of care and grim neurologic prognosis. 01/10: Afebrile, K3.1. ABG 7.4 7/40/129 on 40% FiO2. CXR stable. Still with right hand tremor. Long d/w son, Lance, and his significant other. 01/11: No overnight events. Chest radiograph stable, ABG on 40% FiO2 and PEEP 5 was 7.48/46/137. Heart rate slowing down and blood pressure coming up a bit. Glucose stable. No sedating meds for over 96 hours. No meaningful interaction. Babinski reflexes demonstrated to family. 01/12: Afebrile overnight. Creatinine 1.3, Hb 9.2. Having more PVCs on monitor today. On 40% FiO2 PEEP of 5. Blood pressure little elevated requiring additional IV dose of hydralazine. Still with right arm twitching and irregular mouth movement. No meaningful neurologic interaction. Afebrile overnight. Chest radiograph appears relatively unchanged from prior. Still with multiple PVCs. On vent without sedation since 01/04/2021. FiO2 40% PEEP 5 ABG 7.46/49/129. Still with right arm twitching, more severe. Vitals/I&O Vitals/I&O: Vital Signs Date Time Temp Pulse Resp B/P (MAP) Pulse Ox O2 Delivery O2 Flow Rate FiO2 01/21/21 13:46 79 113/54 01/21/21 13:00 24 100 Ventilator 01/21/21 11:48 98.6 98.6 I & O 01/20/21 01/20/21 01/21/21 15:00 23:00 07:00 Intake Total 57.5 ml 768 ml 514 ml Output Total 315 ml 425 ml 300 ml Balance -257.5 ml 343 ml 214 ml Physical Exam Physical Exam: GENERAL: Intubated, opens eyes transiently, does not follow any commands HEENT: Normocephalic, atraumatic. Tongue protruded, ETT /OGT + NECK: Supple though fullness due to body habitus. LUNGS: Decreased breath sounds. No wheezing. HEART: S1, S2. Distant heart sounds. ABDOMEN: Obese. Bowel sounds present. EXTREMITIES: Minimal edema. No cyanosis. NEUROLOGIC: Intubated,right upper extremity twitching Left IJ clean General: No acute distress, Other (Intubated sedated) Heart: Regular rate Lungs: Clear, Crackles Abdomen: Soft Extremities: Other (Trace edema) Skin: No rashes Labs Labs: Laboratory Tests Test 01/21/21 08:00 O2 Saturation 98 % (92-99) Arterial Blood pH 7.48 (7.35-7.45) Arterial Blood pCO2 at Patient Temp 40 mmHg (35-46) Arterial Blood pO2 at Patient Temp 130 mmHg (65-108) Arterial Blood HCO3 29 mmol/L (21-28) Arterial Blood Base Excess 5 mmol/L (-3-3) FiO2 35 Assessment and Plan Assessmemt and Plan Problems Medical Problems: (1) Acute renal failure Status: Acute (2) Altered mental status Status: Acute (3) Aspiration pneumonia Status: Acute (4) Hyperkalemia Status: Acute (5) Respiratory failure Status: Acute (6) Sepsis Status: Acute Respiratory failure Status post CODE BLUE Severe anoxic brain injury Persistent vegetative state Pneumonia Hyperkalemia Sepsis Obesity Protein malnutrition Hypertensive urgency Seizures CHF COPD Plan ICU monitoring Vent weaning if possible but unlikely DC Zosyn Continue Johnson to bedside drainage Her prognosis is extremely poor Continue OG feeds DVT prophylaxis Initial plan for tracheostomy tomorrow however patient's family elected to no longer pursue this and plan to withdraw care tomorrow We will continue supportive measures until family arrives in the morning Comment Review of Relevant I have reviewed the following items shady (where applicable) has been applied. Justifications for Admission Other Justification cardiac arrest DANY COVARRUBIAS MD Jan 21, 2021 14:07
[2021-01-21] MEDS: FAMOTIDINE 20 MG/2 ML VIAL IVP SCH (20:37)
[2021-01-21] MEDS: ATORVASTATIN CALCIUM 40 MG TABLET. PO SCH (20:38)
[2021-01-22] VITALS (10 sets, daily range): BP systolic 111–143; BP diastolic 45–98
[2021-01-22] MEDS: HEPARIN for SUB-Q USE 5,000 UNIT/ML VIAL. SQ SCH (05:44)
[2021-01-22] MEDS ORDERED: IV RINGERS,LACTATED 1000ML 1,000 ML IV SCH ×2 (06:00→07:00)
[2021-01-22] MEDS ORDERED: MORPHINE SULFATE 2 MG/ML INJ. IVP PRN (06:00)
[2021-01-22] MEDS ORDERED: HYDROmorphone 2 MG/ML VIAL IVP PRN (06:00)
[2021-01-22] MEDS ORDERED: PROCHLORPERAZINE 10 MG/2 ML VIAL. IVP PRN (06:00)
[2021-01-22] MEDS ORDERED: fentaNYL PF VIAL 100 MCG/2 ML VIAL IVP PRN ×2 (06:00)
[2021-01-22 06:06] LABS: CREATININE 1.4 mg/dL (0.6-1.0); GFR 46.1; POTASSIUM 4.6 mmol/L (3.5-5.1)
[2021-01-22] MEDS ORDERED: BUPIVACAINE-EPI 0.5%-1:200000 MPF 30 ML VIAL. ONE (07:01)
[2021-01-22] MEDS ORDERED: SURGICEL FIBRILLAR 1X2 EACH. ONE (07:01)
[2021-01-22] MEDS ORDERED: ROCURONIUM 50 MG/5 ML VIAL. ONE (08:00)
[2021-01-22] MEDS ORDERED: PROPOFOL 10 MG/ML (20ML) VIAL. IV ONE (08:00)
[2021-01-22 08:31] LABS: BASE EXCESS ABG 4 mmol/L (-3-3); HCO3 ABG 29 mmol/L (21-28); PCO2 ABG 41 mmHg (35-46); PO2 ABG 158 mmHg (65-108); SAT O2 ABG 99 % (92-99)
--- NOTE | 2021-01-22 08:36 | PDOC ---
PROGRESS NOTES Date of Service DATE: 01/22/21 TIME: 08:35 Assessment Problems Medical Problems: (1) Acute renal failure Status: Acute (2) Altered mental status Status: Acute (3) Aspiration pneumonia Status: Acute (4) Hyperkalemia Status: Acute (5) Respiratory failure Status: Acute (6) Sepsis Status: Acute Metabolic encephalopathy, only has basic brainstem reflexes PLEDS and burst-suppression on EEG Respiratory failure, aspiration pneumonia, possible sepsis Acute STEMI, coronary artery disease status post stenting, chronic obstructive pulmonary disease, asthma, congestive heart failure, morbid obesity, renal failure, hyperkalemia, severe protein malnutrition, hypertensive urgency, hyperl ipidemia, type 2 diabetes, obstructive sleep apnea, restless leg syndrome, peripheral neuropathy Plan Family has decided to withdraw care Subjective None Objective Vital Signs Date Time Temp Pulse Resp B/P (MAP) Pulse Ox O2 Delivery O2 Flow Rate FiO2 01/22/21 07:50 100 Ventilator 01/22/21 07:00 81 24 116/71 (86) 01/22/21 04:00 100.0 100.0 Intake and Output 01/22/21 07:00 Intake Total 1540 ml Output Total 1320 ml Balance 220 ml Tube Feeding 1000 ml Other 540 ml Output Urine Total 1320 ml Gastric Drainage Total 0 ml PHYSICAL EXAM No response to pain Triggers ventilator Occasional myoclonic movements of right hand Pupils unreactive EOMI. roving eye movements CN: no focal findings. Muscle tone: normal. Muscle strength: No response DTR: 1+ Plantar reflex: Silent Gait: not examined Sensory exam: Not cooperative. Cerebellar: Not cooperative Review of Relevant I have reviewed the following items shady (where applicable) has been applied. Labs Laboratory Tests Test 01/21/21 08:00 01/22/21 00:15 01/22/21 05:45 O2 Saturation 98 % (92-99) Arterial Blood pH 7.48 (7.35-7.45) Arterial Blood pCO2 at Patient Temp 40 mmHg (35-46) Arterial Blood pO2 at Patient Temp 130 mmHg (65-108) Arterial Blood HCO3 29 mmol/L (21-28) Arterial Blood Base Excess 5 mmol/L (-3-3) FiO2 35 Glucose (Fingerstick) 143 mg/dL (70-99) Sodium Level 144 mmol/L (136-145) Potassium Level 4.6 mmol/L (3.5-5.1) Chloride Level 107 mmol/L (98-107) Carbon Dioxide Level 31 mmol/L (21-32) Anion Gap 6 (6-14) Blood Urea Nitrogen 29 mg/dL (7-20) Creatinine 1.4 mg/dL (0.6-1.0) Estimated GFR (Cockcroft-Gault) 46.1 Glucose Level 165 mg/dL (70-99) Calcium Level 9.0 mg/dL (8.5-10.1) Laboratory Tests Test 01/22/21 00:15 01/22/21 05:45 Glucose (Fingerstick) 143 mg/dL (70-99) Sodium Level 144 mmol/L (136-145) Potassium Level 4.6 mmol/L (3.5-5.1) Chloride Level 107 mmol/L (98-107) Carbon Dioxide Level 31 mmol/L (21-32) Anion Gap 6 (6-14) Blood Urea Nitrogen 29 mg/dL (7-20) Creatinine 1.4 mg/dL (0.6-1.0) Estimated GFR (Cockcroft-Gault) 46.1 Glucose Level 165 mg/dL (70-99) Calcium Level 9.0 mg/dL (8.5-10.1) Microbiology 01/06/21 Blood Culture - Final, Complete NO GROWTH AFTER 5 DAYS 01/05/21 Gram Stain Evaluation - Final, Complete 01/05/21 Respiratory Culture - Final, Complete 01/05/21 Antimicrobic Susceptibility - Final, Complete 01/04/21 Urine Culture - Final, Complete Medications Current Medications Amiodarone HCl 450 mg/Dextrose 259 ml @ 33 mls/hr 1X ONCE IV Last administered on 01/04/21at 11:40; Start 01/04/21 at 11:15; Stop 01/04/21 at 19:05; Status DC Midazolam HCl 100 ml @ 1 mls/hr 1X ONCE IV Last administered on 01/04/21at 11:39; Start 01/04/21 at 11:30; Stop 01/05/21 at 09:51; Status DC Sodium Chloride 1,000 ml @ 1,000 mls/hr 1X ONCE IV Last administered on 01/04/21at 12:13; Start 01/04/21 at 11:45; Stop 01/04/21 at 12:44; Status DC Sodium Bicarbonate (Sodium Bicarb Adult 8.4% Syr) 50 meq 1X ONCE IV Last administered on 01/04/21at 12:55; Start 01/04/21 at 12:00; Stop 01/04/21 at 12:01; Status DC Dextrose (Dextrose 50%-Water Syringe) 25 gm 1X ONCE IV Last administered on 01/04/21at 12:53; Start 01/04/21 at 12:00; Stop 01/04/21 at 12:01; Status DC Insulin Human Regular (HumuLIN R VIAL) 10 unit 1X ONCE IV Last administered on 01/04/21at 12:52; Start 01/04/21 at 12:00; Stop 01/04/21 at 12:01; Status DC Piperacillin Sod/ Tazobactam Sod 3.375 gm/Sodium Chloride 50 ml @ 100 mls/hr 1X ONCE IV Last administered on 01/04/21at 12:12; Start 01/04/21 at 12:00; Stop 01/04/21 at 12:29; Status DC Succinylcholine Chloride (Anectine) 100 mg 1X ONCE IV Last administered on 01/04/21at 11:03; Start 01/04/21 at 12:45; Stop 01/04/21 at 12:46; Status DC Etomidate (Amidate) 20 mg 1X ONCE IV Last administered on 01/04/21at 11:02; St art 01/04/21 at 12:45; Stop 01/04/21 at 12:46; Status DC Rocuronium [place] (Zemuron) 100 mg 1X ONCE IV ; Start 01/04/21 at 12:45; Stop 01/04/21 at 12:46; Status Cancel Midazolam HCl (Versed) 5 mg 1X ONCE IV Last administered on 01/04/21at 11:30; Start 01/04/21 at 12:45; Stop 01/04/21 at 12:46; Status DC Rocuronium [place] (Zemuron) 100 mg 1X ONCE IV Last administered on 01/04/21at 11:33; Start 01/04/21 at 12:45; Stop 01/04/21 at 12:46; Status DC Ondansetron HCl (Zofran) 4 mg PRN Q8HRS PRN IV NAUSEA/VOMITING; Start 01/04/21 at 13:00; Stop 01/05/21 at 09:48; Status DC Sodium Chloride 1,000 ml @ 100 mls/hr Q10H IV Last administered on 01/05/21at 09:41; Start 01/04/21 at 13:00; Stop 01/05/21 at 12:59; Status DC Ondansetron HCl (Zofran) 4 mg PRN Q6HRS PRN IVP NAUSEA/VOMITING; Start 01/04/21 at 14:00 Famotidine (Pepcid Vial) 20 mg QHS IVP Last administered on 01/21/21at 20:37; Start 01/04/21 at 21:00 Heparin Sodium (Porcine) (Heparin Sodium) 5,000 unit Q8HRS SQ Last administered on 01/22/21at 05:44; Start 01/04/21 at 14:00 Sodium Chloride (Normal Saline Flush) 3 ml QSHIFT PRN IV AFTER MEDS AND BLOOD DRAWS; Start 01/04/21 at 14:00 Bisacodyl (Dulcolax Supp) 10 mg PRN DAILY PRN RI CONSTIPATION; Start 01/04/21 at 14:00 Piperacillin Sod/ Tazobactam Sod (Zosyn Per Pharmacy) 1 each PRN DAILY PRN MC SEE COMMENTS; Start 01/04/21 at 14:00; Stop 01/04/21 at 17:48; Status DC Piperacillin Sod/ Tazobactam Sod 2.25 gm/Sodium Chloride 50 ml @ 100 mls/hr Q6HRS IV ; Start 01/04/21 at 18:00; Stop 01/04/21 at 17:49; Status DC Dextrose (Dextrose 50%-Water Syringe) 25 gm 1X ONCE IV Last administered on 01/04/21at 16:21; Start 01/04/21 at 16:15; Stop 01/04/21 at 16:16; Status DC Meropenem 500 mg/ Sodium Chloride 50 ml @ 100 mls/hr Q8HRS IV ; Start 01/04/21 at 18:00; Status Cancel Piperacillin Sod/ Tazobactam Sod 2.25 gm/Sodium Chloride 50 ml @ 100 mls/hr Q8HRS IV Last administered on 01/08/21at 06:01; Start 01/04/21 at 22:00; Stop 01/08/21 at 07:50; Status DC Linezolid/Dextrose 300 ml @ 300 mls/hr Q12HR IV Last administered on 01/07/21at 21:23; Start 01/04/21 at 21:00; Stop 01/08/21 at 10:41; Status DC Valproic Acid 500 mg/Dextrose 55 ml @ 55 mls/hr Q12HR IV Last administered on 01/05/21at 09:40; Start 01/05/21 at 09:00; Stop 01/05/21 at 17:28; Status DC Valproic Acid 1000 mg/Dextrose 60 ml @ 60 mls/hr 1X ONCE IV Last administered on 01/04/21at 19:30; Start 01/04/21 at 19:30; Stop 01/04/21 at 20:29; Status DC Lorazepam (Ativan Inj) 2 mg PRN Q2HRS PRN IVP ANXIETY / AGITATION Last administered on 01/05/21at 23:30; Start 01/04/21 at 19:30; Stop 01/08/21 at 08:16; Status DC Hydralazine HCl (Apresoline Inj) 10 mg PRN Q6HRS PRN IVP ELEVATED BP, SEE COMMENTS Last administered on 01/21/21at 05:47; Start 01/04/21 at 19:45 Amiodarone HCl 450 mg/Dextrose 259 ml @ 33 mls/hr CONT PRN IV SEE I/O RECORD Last administered on 01/05/21at 11:50; Start 01/04/21 at 20:15; Stop 01/05/21 at 11:50; Status DC Midazolam HCl 100 ml @ 1 mls/hr CONT PRN IV SEE I/O RECORD Last administered on 01/05/21at 02:00; Start 01/05/21 at 02:00; Stop 01/08/21 at 08:16; Status DC Daptomycin 600 mg/ Sodium Chloride 50 ml @ 100 mls/hr Q48H IV Last administered on 01/07/21at 15:40; Start 01/05/21 at 16:00; Stop 01/08/21 at 07:52; Status DC Scopolamine (Transderm-Scop) 1 patch Q3DAYS TD Last administered on 01/08/21at 08:08; Start 01/05/21 at 17:00; Stop 01/08/21 at 08:16; Status DC Valproic Acid 750 mg/Dextrose 57.5 ml @ 57.5 mls/hr Q12HR IV Last administered on 01/21/21at 20:37; Start 01/05/21 at 21:00 Insulin Human Lispro (HumaLOG) 0-5 UNITS TIDWMEALS SQ Last administered on 01/05/21at 18:27; Start 01/05/21 at 18:30; Stop 01/06/21 at 08:42; Status DC Dextrose (Dextrose 50%-Water Syringe) 12.5 gm PRN Q15MIN PRN IV SEE COMMENTS; Start 01/05/21 at 18:15 Amiodarone HCl 450 mg/Dextrose 259 ml @ 0 mls/hr 1X ONCE IV Last administered on 01/06/21at 02:00; Start 01/06/21 at 02:00; Stop 01/06/21 at 02:01; Status DC Insulin Human Lispro (HumaLOG) 0-5 UNITS Q6HRS SQ ; Start 01/06/21 at 12:00; Stop 01/17/21 at 13:40; Status DC Amiodarone HCl 450 mg/Dextrose 259 ml @ 0 mls/hr 1X ONCE IV Last administered on 01/06/21at 17:05; Start 01/06/21 at 17:00; Stop 01/06/21 at 17:01; Status DC Amiodarone HCl (Cordarone) 400 mg DAILY PO ; Start 01/07/21 at 14:00; Stop 01/07/21 at 13:15; Status DC Multi-Ingred Cream/Lotion/Oil/ Oint (Artificial Tears Eye Ointment) 1 chio PRN Q1HR PRN OU DRY EYE Last administered on 01/07/21at 14:14; Start 01/07/21 at 13:00 Aspirin (Blessing Aspirin) 325 mg DAILY PO Last administered on 01/08/21at 08:12; Start 01/08/21 at 09:00; Stop 01/09/21 at 09:16; Status DC Clopidogrel Bisulfate (Plavix) 75 mg DAILYWBKFT PO Last administered on 01/21/21at 10:25; Start 01/08/21 at 08:00 Hydralazine HCl (Apresoline) 25 mg BID PO Last administered on 01/21/21at 20:39; Start 01/07/21 at 21:00 Metoprolol Succinate (Toprol Xl) 25 mg DAILY PO ; Start 01/08/21 at 09:00; Stop 01/08/21 at 07:44; Status DC Isosorbide Mononitrate (Imdur) 120 mg DAILY PO ; Start 01/08/21 at 09:00; Stop 01/08/21 at 08:16; Status DC Losartan Potassium (Cozaar) 100 mg DAILY PO Last administered on 01/21/21at 08:12; Start 01/08/21 at 09:00 Atorvastatin Calcium (Lipitor) 80 mg QHS PO Last administered on 01/21/21at 20:38; Start 01/07/21 at 21:00 Epinephrine HCl (EPINEPHrine SYRINGE) 2 mg STK-MED ONCE .ROUTE ; Start 01/04/21 at 11:00; Stop 01/07/21 at 17:12; Status DC Amiodarone HCl (Cordarone) 300 mg STK-MED ONCE .ROUTE ; Start 01/04/21 at 11:00; Stop 01/07/21 at 17:12; Status DC Metoprolol Tartrate (Lopressor) 12.5 mg BID PO Last administered on 01/21/21at 20:37; Start 01/08/21 at 09:00 Piperacillin Sod/ Tazobactam Sod 3.375 gm/Sodium Chloride 50 ml @ 100 mls/hr Q6HRS IV Last administered on 01/15/21at 05:29; Start 01/08/21 at 12:00; Stop 01/15/21 at 07:56; Status DC Daptomycin 600 mg/ Sodium Chloride 50 ml @ 100 mls/hr Q24H IV Last administered on 01/11/21at 15:56; Start 01/08/21 at 16:00; Stop 01/12/21 at 09:34; Status DC Isosorbide Mononitrate (Ismo) 20 mg [id number] PO Last administered on 01/21/21at 13:46; Start 01/08/21 at 09:00 Aspirin (Aspirin Chewable) 81 mg DAILYWBKFT PO Last administered on 01/21/21at 10:25; Start 01/08/21 at 08:30 Glycopyrrolate (Robinul) 1 mg PRN DAILY PRN IV Secretions Last administered on 01/21/21at 08:15; Start 01/08/21 at 08:45 Potassium Chloride/Water 100 ml @ 100 mls/hr Q1H IV Last administered on 01/08/21at 13:37; Start 01/08/21 at 12:00; Stop 01/08/21 at 13:59; Status DC Potassium Bicarbonate (Potassium Effervescent Tablet) 40 meq 1X ONCE PEG Last administered on 01/09/21at 11:02; Start 01/09/21 at 09:30; Stop 01/09/21 at 09:31; Status DC Potassium Bicarbonate (Potassium Effervescent Tablet) 40 meq 1X ONCE PO Last administered on 01/10/21at 07:19; Start 01/10/21 at 08:00; Stop 01/10/21 at 08: 01; Status DC Furosemide (Lasix) 40 mg 1X ONCE IVP Last administered on 01/10/21at 17:48; Start 01/10/21 at 17:45; Stop 01/10/21 at 17:46; Status DC Potassium Bicarbonate (Potassium Effervescent Tablet) 40 meq 1X ONCE PEG Last administered on 01/10/21at 19:15; Start 01/10/21 at 19:00; Stop 01/10/21 at 19:01; Status DC Insulin Human Lispro (HumaLOG) 0-5 UNITS PRN Q6HRS PRN SQ SEE COMMENTS; Start 01/17/21 at 13:45 Ringer's Solution 1,000 ml @ 50 mls/hr Q20H IV ; Start 01/22/21 at 07:00; Stop 01/22/21 at 18:59 Fentanyl Citrate (Fentanyl 2ml Vial) 25 mcg PRN Q5MIN PRN IVP MILD PAIN 1-3; Start 01/22/21 at 06:00; Stop 01/22/21 at 19:00 Fentanyl Citrate (Fentanyl 2ml Vial) 50 mcg PRN Q5MIN PRN IVP MODERATE PAIN 4- 6; Start 01/22/21 at 06:00; Stop 01/22/21 at 19:00 Morphine Sulfate (Morphine Sulfate) 1 mg PRN Q10MIN PRN IVP SEVERE PAIN 7-10; Start 01/22/21 at 06:00; Stop 01/22/21 at 19:00 Ringer's Solution 1,000 ml @ 30 mls/hr Q24H IV ; Start 01/22/21 at 06:00; Stop 01/22/21 at 17:59; Status UNV Hydromorphone HCl (Dilaudid) 0.5 mg PRN Q10MIN PRN IVP SEVERE PAIN 7-10, 2nd CHOICE; Start 01/22/21 at 06:00; Stop 01/22/21 at 19:00 Prochlorperazine Edisylate (Compazine) 5 mg PACU PRN PRN IVP NAUSEA, MRX1; Start 01/22/21 at 06:00; Stop 01/22/21 at 19:00 Bupivacaine HCl/ Epinephrine Bitart (Sensorcain-Epi 0.5%-1:[id number] Mpf) 30 ml STK-MED ONCE .ROUTE ; Start 01/22/21 at 07:01; Stop 01/22/21 at 07:02; Status DC Cellulose (Surgicel Fibrillar 1x2) 1 each STK-MED ONCE .ROUTE ; Start 01/22/21 at 07:01; Stop 01/22/21 at 07:02; Status DC Propofol (Diprivan) 200 mg STK-MED ONCE IV ; Start 01/22/21 at 08:00; Stop 01/22/21 at 08:00; Status DC Rocuronium [place] (Zemuron) 50 mg STK-MED ONCE .ROUTE ; Start 01/22/21 at 08:00; Stop 01/22/21 at 08:01; Status DC Active Scripts Active Promethazine Hcl 12.5 Mg Tablet 12.5 Mg PO PRN Q6HRS PRN 30 Days Metoprolol Succinate ( Xl ) (Metoprolol Succinate) 25 Mg Tab.er.24h 25 Mg PO DAILY 30 Days Pantoprazole Sodium (Pantoprazole Sodium) 40 Mg Tablet.dr 40 Mg PO BIDAC 30 Days Clopidogrel (Clopidogrel Bisulfate) 75 Mg Tablet 75 Mg PO DAILYWBKFT 75 Days Reported Voltaren (Diclofenac Sodium) 100 Gm Gel..gram. 1 Gm TP QID 30 Days apply to affected area(s) Nystatin 15 Gm Powder 1 [place] TP BID 7 Days apply to affected area(s) Ondansetron Odt (Ondansetron) 4 Mg Tab.rapdis 1 Tab PO PRN Q8HRS PRN Reglan (Metoclopramide Hcl) 10 Mg Tablet 1 Tab PO QID 30 Days before food and bedtime Losartan Potassium 100 Mg Tablet 100 Mg PO DAILY Aspirin 325 Mg Tablet 1 Tab PO DAILY Metformin Hcl 500 Mg Tablet 500 Mg PO BIDWMEALS Bumetanide 1 Mg Tablet 1 Mg PO BID Insulin Aspart 100 Unit/1 Ml Vial 60 Unit SQ TIDAC novolg flex pen Isosorbide Mononitrate Er (Isosorbide Mononitrate) 120 Mg Tab.er.24h 120 Mg PO DAILY NITROGLYCERIN SubLingual (Nitroglycerin) 0.4 Mg Tab.subl 0.4 Mg SL PRN Q5MIN PRN Albuterol Sulfate Neb Soln (Albuterol Sulfate) 2.5 Mg/3 Ml Vial.neb 2.5 Mg NEB Q4-6HRS PRN Levemir Flextouch (Insulin Detemir) 100 Unit/1 Ml Insuln.pen 60 Unit SQ HS Hydralazine Hcl 25 Mg Tablet 25 Mg PO BID Fluticasone Propionate Nasal [place] (Fluticasone Propionate) 16 Gm [place].susp 2 [place] NS DAILY Zolpidem Tartrate 5 Mg Tablet 5 Mg PO PRN QHS PRN Amlodipine Besylate 10 Mg Tablet 10 Mg PO DAILY Gabapentin 600 Mg Tablet 600 Mg PO BID Potassium Chloride (Potassium Chloride) 20 Meq Tablet.er 20 Meq PO BID Proair Respiclick (Albuterol Sulfate) 90 Mcg Aer.pow.ba 2 Puff IH PRN Q4-6HRS PRN Cyclobenzaprine Hcl 10 Mg Tablet 1 Tab PO BID PRN Requip (Ropinirole Hcl) 1 Mg Tablet 1 Tab PO QHS Crestor (Rosuvastatin Calcium) 20 Mg Tablet 20 Mg PO HS LAST DOSE: 10/01/15 BEDTIME NEXT DOSE: 10/02/15 BEDTIME Oxybutynin Chloride 5 Mg Tablet 1 Tab PO DAILY LAST DOSE: 10/02/15 AM NEXT DOSE: 10/03/15 AM Vitals/I & O Vital Sign - Last 24 Hours 01/21/21 01/21/21 01/21/21 01/21/21 09:00 10:00 11:08 11:48 Temp 98.6 98.6 Pulse 87 80 82 78 Resp 28 24 24 24 B/P (MAP) 97/61 (73) 108/60 (76) 109/49 (69) 104/49 (67) Pulse Ox 97 100 100 100 O2 Delivery Ventilator Ventilator Ventilator Ventilator 01/21/21 01/21/21 01/21/215/21 11:49 12:00 13:00 13:46 Pulse 82 79 Resp 24 B/P (MAP) 113/54 (73) 113/54 Pulse Ox 100 100 O2 Delivery Mechanical Ventilator Ventilator Ventilator 01/21/21 01/21/21 01/21/21 01/21/21 14:00 15:01 15:53 15:54 Pulse 82 84 78 Resp B/P (MAP) 108/57 (74) 108/57 (74) 131/61 (84) Pulse Ox 100 100 O2 Delivery Ventilator Mechanical Ventilator Ventilator 01/21/21 01/21/21 01/21/21 01/21/21 15:59 17:00 17:41 18:03 Pulse 80 83 Resp B/P (MAP) 121/52 (75) 139/68 (91) Pulse Ox 100 100 100 100 O2 Delivery Ventilator Ventilator Ventilator Ventilator 01/21/21 01/21/21 01/21/21 01/21/21 19:00 20:00 20:00 20:37 Temp 99.3 99.3 Pulse 89 87 89 Resp B/P (MAP) 124/59 (80) 143/77 (99) 164/70 Pulse Ox 100 100 O2 Delivery Ventilator Mechanical Ventilator Ventilator 01/21/21 01/21/21 01/21/21 01/21/21 20:39 20:55 21:00 22:09 Pulse 89 87 78 Resp B/P (MAP) 164/70 136/58 (84) 137/58 (84) Pulse Ox 99 100 100 O2 Delivery Ventilator Ventilator Ventilator 01/21/21 01/21/21 01/21/21 01/21/21 22:50 23:00 23:59 23:59 Temp 100.0 100.0 Pulse 79 83 Resp B/P (MAP) 136/55 (82) 124/55 (78) Pulse Ox 99 100 100 O2 Delivery Ventilator Ventilator Ventilator Mechanical Ventilator 01/22/21 01/22/21 01/22/21 01/22/21 00:54 01:00 02:00 02:45 Pulse 80 81 Resp B/P (MAP) 111/54 (73) 117/57 (77) Pulse Ox 98 99 98 98 O2 Delivery Ventilator Ventilator Ventilator Ventilator 01/22/21 01/22/21 01/22/21 01/22/21 03:00 04:00 04:00 05:00 Temp 100.0 100.0 Pulse 83 82 88 Resp 24 24 26 B/P (MAP) 120/52 (74) 143/80 (101) 136/64 (88) Pulse Ox 98 99 98 O2 Delivery Ventilator Ventilator Mechanical Ventilator Ventilator 01/22/21 01/22/21 01/22/21 01/22/21 05:17 06:00 07:00 07:50 Pulse 84 81 Resp 24 24 B/P (MAP) 132/67 (88) 116/71 (86) Pulse Ox 96 99 99 100 O2 Delivery Ventilator Ventilator Ventilator Ventilator Intake and Output 01/21/21 01/21/21 01/22/21 15:00 23:00 07:00 Intake Total 840 ml 700 ml Output Total 465 ml 465 ml 390 ml Balance -465 ml 375 ml 310 ml Justicifation of Admission Dx: Justifications for Admission: Justification of Admission Dx: Yes SWATHI BOOTH MD Jan 22, 2021 08:36
[2021-01-22] MEDS: VALPROIC ACID (AS SODIUM SALT) 750 MG in IV DEXTROSE 5% 50 ML IV SCH (08:54)
[2021-01-22] MEDS: hydrALAZINE 25 MG TABLET PO SCH (08:54)
[2021-01-22] MEDS: CLOPIDOGREL BISULFATE 75 MG TABLET PO SCH (08:55)
[2021-01-22] MEDS: ASPIRIN CHEWABLE 81 MG TABLET. PO SCH (08:55)
[2021-01-22] MEDS: ISOSORBIDE MONONITRATE 20 MG TABLET PO SCH (08:55)
[2021-01-22] MEDS: LOSARTAN POTASSIUM 50 MG TABLET. PO SCH (08:55)
[2021-01-22] MEDS: METOPROLOL TART IMMED RELEASE 25 MG TABLET. PO SCH (08:56)
[2021-01-22 09:05] LABS: FIO2 ABG 35/VENT
--- NOTE | 2021-01-22 09:19 | PDOC ---
DATE OF SERVICE DATE: 01/22/21 TIME: 09:19 SUBJECTIVE ROS Remains Intubated OBJECTIVE Vital Signs Vital Signs Date Time Temp Pulse Resp B/P (MAP) Pulse Ox O2 Delivery O2 Flow Rate FiO2 01/22/21 08:56 85 125/98 01/22/21 08:00 99.4 24 98 Ventilator 99.4 I & 0 Intake and Output 01/22/21 07:00 Intake Total 1540 ml Output Total 1320 ml Balance 220 ml Tube Feeding 1000 ml Other 540 ml Output Urine Total 1320 ml Gastric Drainage Total 0 ml PHYSICAL EXAM Physical Exam GENERAL: Intubated/MV HEENT: orally placed endotracheal tube. NECK: supple LUNGS: decreased at bases HEART: Distant heart sounds. ABD Marked obesity. EXTRE: No LE edema NEURO: Metabolic encephalopathy, only has basic brainstem reflexes JOSE R Johnson + DIAGNOSIS/ASSESSMENT Assessment & Plan MIRIAM - ATN 2/2 Cardiopulmonary arrest, Non Oliguric , Resolved CKD STAGE 3: Appears to be relatively stable in the 1.2 to 1.4 range.,E-Lytes stable Supportive care , fluid balance , avoid nephrotoxins Acute hypoxemic hypercapnic respiratory failure Intubated/MV Suspected aspiration pneumonia. Cardiopulmonary arrest Coronary artery disease with recent percutaneous coronary intervention to the left anterior descending. Type 2 diabetes. Chronic obstructive pulmonary disease. Morbid obesity. Hypertension. Obstructive sleep apnea. Metabolic encephalopathy, only has basic brainstem reflexes COMMENT/RELEVANT DATA Meds Current Medications Medications (Trade) Dose Ordered Sig/Lui Start Time Stop Time Status Last Admin Dose Admin Amiodarone HCl (Cordarone) 300 mg STK-MED ONCE 01/04/21 11:00 01/07/21 17:12 DC Amiodarone HCl 450 mg/Dextrose 259 ml @ 0 mls/hr 1X ONCE 01/06/21 17:00 01/06/21 17:01 DC 01/06/21 17:05 17 MLS/HR Aspirin (Aspirin Chewable) 81 mg DAILYWBKFT 01/08/21 08:30 01/22/21 08:55 81 MG Aspirin (Blessing Aspirin) 325 mg DAILY 01/08/21 09:00 01/09/21 09:16 DC 01/08/21 08:12 325 MG Atorvastatin Calcium (Lipitor) 80 mg QHS 01/07/21 21:00 01/21/21 20:38 80 MG Bisacodyl (Dulcolax Supp) 10 mg PRN DAILY PRN 01/04/21 14:00 Bupivacaine HCl/ Epinephrine Bitart (Sensorcain-Epi 0.5%-1:[id number] Mpf) 30 ml STK-MED ONCE 01/22/21 07:01 01/22/21 07:02 DC Cellulose (Surgicel Fibrillar 1x2) 1 each STK-MED ONCE 01/22/21 07:01 01/22/21 07:02 DC Clopidogrel Bisulfate (Plavix) 75 mg DAILYWBKFT 01/08/21 08:00 01/22/21 08:55 75 MG Daptomycin 600 mg/ Sodium Chloride 50 ml @ 100 mls/hr Q24H 01/08/21 16:00 01/12/21 09:34 DC 01/11/21 15:56 100 MLS/HR Dextrose (Dextrose 50%-Water Syringe) 12.5 gm PRN Q15MIN PRN 01/05/21 18:15 Epinephrine HCl (EPINEPHrine SYRINGE) 2 mg STK-MED ONCE 01/04/21 11:00 01/07/21 17:12 DC Etomidate (Amidate) 20 mg 1X ONCE 01/04/21 12:45 01/04/21 12:46 DC 01/04/21 11:02 20 MG Famotidine (Pepcid Vial) 20 mg QHS 01/04/21 21:00 01/21/21 20:37 20 MG Fentanyl Citrate (Fentanyl 2ml Vial) 50 mcg PRN Q5MIN PRN 01/22/21 06:00 01/22/21 19:00 Furosemide (Lasix) 40 mg 1X ONCE 01/10/21 17:45 01/10/21 17:46 DC 01/10/21 17:48 40 MG Glycopyrrolate (Robinul) 1 mg PRN DAILY PRN 01/08/21 08:45 01/21/21 08:15 1 MG Heparin Sodium (Porcine) (Heparin Sodium) 5,000 unit Q8HRS 01/04/21 14:00 01/22/21 05:44 5,000 UNIT Hydralazine HCl (Apresoline Inj) 10 mg PRN Q6HRS PRN 01/04/21 19:45 01/21/21 05:47 10 MG Hydralazine HCl (Apresoline) 25 mg BID 01/07/21 21:00 01/22/21 08:54 25 MG Hydromorphone HCl (Dilaudid) 0.5 mg PRN Q10MIN PRN 01/22/21 06:00 01/22/21 19:00 Insulin Human Lispro (HumaLOG) 0-5 UNITS PRN Q6HRS PRN 01/17/21 13:45 Insulin Human Regular (HumuLIN R VIAL) 10 unit 1X ONCE 01/04/21 12:00 01/04/21 12:01 DC 01/04/21 12:52 10 UNIT Isosorbide Mononitrate (Imdur) 120 mg DAILY 01/08/21 09:00 01/08/21 08:16 DC Isosorbide Mononitrate (Ismo) 20 mg [id number] 01/08/21 09:00 01/22/21 08:55 20 MG Linezolid/Dextrose 300 ml @ 300 mls/hr Q12HR 01/04/21 21:00 01/08/21 10:41 DC 01/07/21 21:23 300 MLS/HR Lorazepam (Ativan Inj) 2 mg PRN Q2HRS PRN 01/04/21 19:30 01/08/21 08:16 DC 01/05/21 23:30 2 MG Losartan Potassium (Cozaar) 100 mg DAILY 01/08/21 09:00 01/22/21 08:55 100 MG Meropenem 500 mg/ Sodium Chloride 50 ml @ 100 mls/hr Q8HRS 01/04/21 18:00 Cancel Metoprolol Succinate (Toprol Xl) 25 mg DAILY 01/08/21 09:00 01/08/21 07:44 DC Metoprolol Tartrate (Lopressor) 12.5 mg BID 01/08/21 09:00 01/22/21 08:56 12.5 MG Midazolam HCl 100 ml @ 1 mls/hr CONT PRN 01/05/21 02:00 01/08/21 08:16 DC 01/05/21 02:00 4 MLS/HR Midazolam HCl (Versed) 5 mg 1X ONCE 01/04/21 12:45 01/04/21 12:46 DC 01/04/21 11:30 5 MG Morphine Sulfate (Morphine Sulfate) 1 mg PRN Q10MIN PRN 01/22/21 06:00 01/22/21 19:00 Multi-Ingred Cream/Lotion/Oil/ Oint (Artificial Tears Eye Ointment) 1 ashutosh PRN Q1HR PRN 01/07/21 13:00 01/07/21 14:14 1 ASHUTOSH Ondansetron HCl (Zofran) 4 mg PRN Q6HRS PRN 01/04/21 14:00 Piperacillin Sod/ Tazobactam Sod (Zosyn Per Pharmacy) 1 each PRN DAILY PRN 01/04/21 14:00 01/04/21 17:48 DC Piperacillin Sod/ Tazobactam Sod 2.25 gm/Sodium Chloride 50 ml @ 100 mls/hr Q8HRS 01/04/21 22:00 01/08/21 07:50 DC 01/08/21 06:01 100 MLS/HR Piperacillin Sod/ Tazobactam Sod 3.375 gm/Sodium Chloride 50 ml @ 100 mls/hr Q6HRS 01/08/21 12:00 01/15/21 07:56 DC 01/15/21 05:29 100 MLS/HR Potassium Bicarbonate (Potassium Effervescent Tablet) 40 meq 1X ONCE 01/10/21 19:00 01/10/21 19:01 DC 01/10/21 19:15 40 MEQ Potassium Chloride/Water 100 ml @ 100 mls/hr Q1H 01/08/21 12:00 01/08/21 13:59 DC 01/08/21 13:37 100 MLS/HR Prochlorperazine Edisylate (Compazine) 5 mg PACU PRN PRN 01/22/21 06:00 01/22/21 19:00 Propofol (Diprivan) 200 mg STK-MED ONCE 01/22/21 08:00 01/22/21 08:00 DC Ringer's Solution 1,000 ml @ 30 mls/hr Q24H 01/22/21 06:00 01/22/21 17:59 UNV Rocuronium Borden (Zemuron) 50 mg STK-MED ONCE 01/22/21 08:00 01/22/21 08:01 DC Scopolamine (Transderm-Scop) 1 patch Q3DAYS 01/05/21 17:00 01/08/21 08:16 DC 01/08/21 08:08 1 PATCH Sodium Bicarbonate (Sodium Bicarb Adult 8.4% Syr) 50 meq 1X ONCE 01/04/21 12:00 01/04/21 12:01 DC 01/04/21 12:55 50 MEQ Sodium Chloride (Normal Saline Flush) 3 ml QSHIFT PRN 01/04/21 14:00 Succinylcholine Chloride (Anectine) 100 mg 1X ONCE 01/04/21 12:45 01/04/21 12:46 DC 01/04/21 11:03 100 MG Valproic Acid 1000 mg/Dextrose 60 ml @ 60 mls/hr 1X ONCE 01/04/21 19:30 01/04/21 20:29 DC 01/04/21 19:30 60 MLS/HR Valproic Acid 500 mg/Dextrose 55 ml @ 55 mls/hr Q12HR 01/05/21 09:00 01/05/21 17:28 DC 01/05/21 09:40 55 MLS/HR Valproic Acid 750 mg/Dextrose 57.5 ml @ 57.5 mls/hr Q12HR 01/05/21 21:00 01/22/21 08:54 57.5 MLS/HR Lab Laboratory Tests Test 01/22/21 00:15 01/22/21 05:45 01/22/21 08:00 Glucose (Fingerstick) 143 mg/dL (70-99) Sodium Level 144 mmol/L (136-145) Potassium Level 4.6 mmol/L (3.5-5.1) Chloride Level 107 mmol/L (98-107) Carbon Dioxide Level 31 mmol/L (21-32) Anion Gap 6 (6-14) Blood Urea Nitrogen 29 mg/dL (7-20) Creatinine 1.4 mg/dL (0.6-1.0) Estimated GFR (Cockcroft-Gault) 46.1 Glucose Level 165 mg/dL (70-99) Calcium Level 9.0 mg/dL (8.5-10.1) O2 Saturation 99 % (92-99) Arterial Blood pH 7.46 (7.35-7.45) Arterial Blood pCO2 at Patient Temp 41 mmHg (35-46) Arterial Blood pO2 at Patient Temp 158 mmHg (65-108) Arterial Blood HCO3 29 mmol/L (21-28) Arterial Blood Base Excess 4 mmol/L (-3-3) FiO2 35/vent Results All relevant outside records, renal labs, imaging studies, telemetry/EKG's were reviewed. Justicifation of Admission Dx: Justifications for Admission: Justification of Admission Dx: Yes RASHAAD CABRERA MD Jan 22, 2021 09:19
--- NOTE | 2021-01-22 10:19 | NUR ---
SS following up with discharge planning. SS reviewed pt chart and discussed with pt RN. Pt is currently on the vent at 30%. Possible withdrawal of care today. SS will continue to follow for discharge planning.
--- NOTE | 2021-01-22 10:51 | PDOC ---
PULMONARY PROGRESS NOTES DATE: 01/22/21 TIME: 10:46 Subjective on vent support AC mode pt. withdraws to pain no overnight concerns Vitals Vital Signs Date Time Temp Pulse Resp B/P (MAP) Pulse Ox O2 Delivery O2 Flow Rate FiO2 01/22/21 10:00 70 20 129/56 (80) 98 Ventilator 01/22/21 08:00 99.4 99.4 Comments unable to obtain 2/2 clinical state HEENT: Other Lungs: Clear, Crackles Cardiovascular: S1, S2 Abdomen: Soft, Non-tender, Other (no mass obese) Extremities: Other (edema) Skin: Warm Labs Laboratory Tests Test 01/21/21 08:00 01/22/21 00:15 01/22/21 05:45 01/22/21 08:00 O2 Saturation 98 % (92-99) 99 % (92-99) Arterial Blood pH 7.48 (7.35-7.45) 7.46 (7.35-7.45) Arterial Blood pCO2 at Patient Temp 40 mmHg (35-46) 41 mmHg (35-46) Arterial Blood pO2 at Patient Temp 130 mmHg (65-108) 158 mmHg (65-108) Arterial Blood HCO3 29 mmol/L (21-28) 29 mmol/L (21-28) Arterial Blood Base Excess 5 mmol/L (-3-3) 4 mmol/L (-3-3) FiO2 35 35/vent Glucose (Fingerstick) 143 mg/dL (70-99) Sodium Level 144 mmol/L (136-145) Potassium Level 4.6 mmol/L (3.5-5.1) Chloride Level 107 mmol/L (98-107) Carbon Dioxide Level 31 mmol/L (21-32) Anion Gap 6 (6-14) Blood Urea Nitrogen 29 mg/dL (7-20) Creatinine 1.4 mg/dL (0.6-1.0) Estimated GFR (Cockcroft-Gault) 46.1 Glucose Level 165 mg/dL (70-99) Calcium Level 9.0 mg/dL (8.5-10.1) Laboratory Tests Test 01/22/21 00:15 01/22/21 05:45 01/22/21 08:00 Glucose (Fingerstick) 143 mg/dL (70-99) Sodium Level 144 mmol/L (136-145) Potassium Level 4.6 mmol/L (3.5-5.1) Chloride Level 107 mmol/L (98-107) Carbon Dioxide Level 31 mmol/L (21-32) Anion Gap 6 (6-14) Blood Urea Nitrogen 29 mg/dL (7-20) Creatinine 1.4 mg/dL (0.6-1.0) Estimated GFR (Cockcroft-Gault) 46.1 Glucose Level 165 mg/dL (70-99) Calcium Level 9.0 mg/dL (8.5-10.1) O2 Saturation 99 % (92-99) Arterial Blood pH 7.46 (7.35-7.45) Arterial Blood pCO2 at Patient Temp 41 mmHg (35-46) Arterial Blood pO2 at Patient Temp 158 mmHg (65-108) Arterial Blood HCO3 29 mmol/L (21-28) Arterial Blood Base Excess 4 mmol/L (-3-3) FiO2 35/vent Medications Active Scripts Medications Dose Route/Sig Max Daily Dose Days Date Category Dose Instructions Voltaren (Diclofenac Sodium) 100 Gm Gel..gram. 1 Gm TP QID 30 12/10/20 Reported apply to affected area(s) Oxycodone Hcl 5 Mg Capsule 5 Mg PO PRN Q6HRS PRN 12/08/20 Reported Nystatin 15 Gm Powder 1 [place] TP BID 7 12/08/20 Reported apply to affected area(s) Ondansetron Odt (Ondansetron) 4 Mg Tab.rapdis 1 Tab PO PRN Q8HRS PRN 11/05/20 Reported Reglan (Metoclopramide Hcl) 10 Mg Tablet 1 Tab PO QID 30 11/05/20 Reported before food and bedtime Pantoprazole Sodium (Pantoprazole Sodium) 40 Mg Tablet.dr 40 Mg PO BIDAC 30 06/21/20 Rx Losartan Potassium 100 Mg Tablet 100 Mg PO DAILY 05/03/20 Reported Aspirin 325 Mg Tablet 1 Tab PO DAILY 05/03/20 Reported Metformin Hcl 500 Mg Tablet 500 Mg PO BIDWMEALS 05/03/20 Reported Bumetanide 1 Mg Tablet 1 Mg PO BID 04/02/20 Reported Insulin Aspart 100 Unit/1 Ml Vial 60 Unit SQ TIDAC 04/02/20 Reported novolg flex pen Isosorbide Mononitrate Er (Isosorbide Mononitrate) 120 Mg Tab.er.24h 120 Mg PO DAILY 04/02/20 Reported NITROGLYCERIN SubLingual (Nitroglycerin) 0.4 Mg Tab.subl 0.4 Mg SL PRN Q5MIN PRN 04/02/20 Reported Albuterol Sulfate Neb Soln (Albuterol Sulfate) 2.5 Mg/3 Ml Vial.neb 2.5 Mg NEB Q4-6HRS PRN 04/02/20 Reported Levemir Flextouch (Insulin Detemir) 100 Unit/1 Ml Insuln.pen 60 Unit SQ HS 04/02/20 Reported Hydralazine Hcl 25 Mg Tablet 25 Mg PO BID 04/02/20 Reported Fluticasone Propionate Nasal [place] (Fluticasone Propionate) 16 Gm [place].susp 2 [place] NS DAILY 06/18/19 Reported Zolpidem Tartrate 5 Mg Tablet 5 Mg PO PRN QHS PRN 06/18/19 Reported Amlodipine Besylate 10 Mg Tablet 10 Mg PO DAILY 06/18/19 Reported Gabapentin 600 Mg Tablet 600 Mg PO BID 06/18/19 Reported Potassium Chloride (Potassium Chloride) 20 Meq Tablet.er 20 Meq PO BID 06/18/19 Reported Clopidogrel (Clopidogrel Bisulfate) 75 Mg Tablet 75 Mg PO DAILYWBKFT 75 11/10/17 Rx Proair Respiclick (Albuterol Sulfate) 90 Mcg Aer.pow.ba 2 Puff IH PRN Q4-6HRS PRN 09/08/16 Reported Cyclobenzaprine Hcl 10 Mg Tablet 1 Tab PO BID PRN 09/08/16 Reported Requip (Ropinirole Hcl) 1 Mg Tablet 1 Tab PO QHS 09/08/16 Reported Crestor (Rosuvastatin Calcium) 20 Mg Tablet 20 Mg PO HS 10/02/15 Reported LAST DOSE: 10/01/15 BEDTIME NEXT DOSE: 10/02/15 BEDTIME Oxybutynin Chloride 5 Mg Tablet 1 Tab PO DAILY 10/02/15 Reported LAST DOSE: 10/02/15 AM NEXT DOSE: 10/03/15 AM Comments CXR reviewed Resolution of left pleural effusion. Unchanged bilateral opacities. CXR 01/07 IMPRESSION: 1. Diffuse interstitial prominence may be seen with interstitial pulmonary edema or atypical infectious/inflammatory process. 2. Support lines and tubes as above. 3. Mild cardiomegaly. Impression . 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 Echo 12/2019 with LVEF 45%, improved on cath on 12/07 Coronary artery disease with recent -- cath 12/07 showed patent long stented pro ximal to distal LAD. No lesions needing intervention were noted. Echo with LVEF 55 to 60%. Type 2 diabetes. Chronic obstructive pulmonary disease. Morbid obesity. Hypertension. Obstructive sleep apnea. MIRIAM --stable Plan . UPDATED 01/22/21 Family present at bedside discussed at length with them clinical state and prognosis. They are prepared to proceed with comfort care and palliative extubation. Proceed with palliative extubation. We will provide comfort medications including Morphine, versed and scopolamine patch No further aggressive care D/W RN, RT, and Family at bedside PT. is DNR UPDATED 01/21/21 no response no sedation for 1 week Continue current vent support in AC mode --setting reviewed trach 01/22 Follow ABG/CXR-- no change Follow surgery recs-- Trach planned for 01/22/21 Follow Nephrology recs-- depakote, seizure precautions per neuology DVT/GI PPX-- sub q heparin D/W RN and RT prognosis poor FULL CODE I had a long discussion with both sons. explained to them poor prognosis and quality of care. They both agree not to pursue with trach and proceed with withdrawl of care in am. d/w RN/RT cct 30 min UPDATED 01/20/21 no response no sedation for days Continue current vent support in AC mode --setting reviewed trach 01/22 Follow ABG/CXR-- no change Follow surgery recs-- Trach planned for 01/22/21 Follow Nephrology recs-- depakote, seizure precautions per neuology DVT/GI PPX-- sub q heparin D/W RN and RT prognosis poor FULL CODE neurology D/W family on 01/18, remains aggressive care full code KADI PRESTON MD Jan 22, 2021 10:51
[2021-01-22] MEDS: MORPHINE SULFATE 10 MG/ML VIAL. IV PRN ×2 (11:01→11:25)
--- NOTE | 2021-01-22 11:12 | NUR ---
Patient extubated to comfort care at 1107 at family's wishes.
--- NOTE | 2021-01-22 11:23 | NUR ---
Pt extubated to comfort care only per family's wishes. Son Chip at bedside. PRN medications given for comfort. [place] transplant on unit and notified of palliative extubation. Will Call time of .
--- NOTE | 2021-01-22 11:49 | NUR ---
Pt pronounced @ 1126 by RNx2. Family at bedside notified. Chip released the body to [facility]. [facility] notified
--- NOTE | 2021-01-22 15:12 | PDOC ---
[facility] PROGRESS NOTE Date of Service DOS: DATE: 01/22/21 TIME: 15:10 Chief Complaint Chief Complaint Respiratory failure Status post CODE BLUE Severe anoxic brain injury Pneumonia Hyperkalemia Sepsis Obesity Protein malnutrition Hypertensive urgency Seizures CHF COPD History of Present Illness History of Present Illness 01/22/2021 Patient examined at bedside Continue withdrawal of care today upon family arrival I discussed with bedside nurse 01/21/2021 Patient remains intubated in the ICU No change in clinical status overnight remains in vegetative state Initially planned for tracheostomy tomorrow however patient's family has elected to not pursue this anymore and plan to withdraw care in the morning of January 22 Plan discussed with bedside nurse 01/20/2021 Patient seen and examined in the ICU She is still on the vent AC/12/400/30 5% with 5 of PEEP On IV Depakote Mitts for patient safety She is still critically ill and has probable persistent vegetative state Chart reviewed Discussed with RN 01/19/2021 Patient seen and examined in the ICU She remains critically ill Still not requiring sedation Pupils are actually small but no response Neurologically she is totally unresponsive Right arm with less twitching She is on IV Depakote Vent settings as follows AC/12/40/30 5% with 5 of PEEP She is still scheduled for tracheostomy on 2020 She will probably need a PEG tube as well but will await our trach first Has Johnson bedside drainage OG running at 45 cc an hour with Vital 01/18/2021 Patient seen and examined in the ICU She is on the vent AC/12/450/30 5% with 5 of PEEP Has IV Depakote OG feeds running at 45 cc an hour Discussed with RN Discussed with case management Chart reviewed She remains critically ill Probable peripheral persistent vegetative state but family wants everything done 01/17/2021 Patient seen and examined in the ICU She remains on the ventilator AC/12/450/30 5% with 5 of PEEP On IV Depakote SCDs are in place Right arm still twitching Pupils are fixed with minimal reaction Discussed with RN Chart reviewed She remains critically ill and is in a persistent vegetative state We would like to move towards hospice but the family would like us to move forward with tracheostomy (she is tentatively scheduled for 01/22/2021) 01/16/2021 Patient seen and examined in the ICU She remains on the ventilator AC/12/450/40 with 5 of PEEP Has Johnson bedside drainage Has SCDs in place OG running at 45 cc an hour Has Depakote IV hanging Discussed with RN Chart reviewed She remains critically ill 01/15/2021 Patient seen and examined in the ICU Discussed with RN Chart reviewed Discussed with case management The patient remains on the ventilator AC/450/40 percent with 5 of PEEP Scheduled to get tracheostomy on 01/22/2021 OG running at 35 cc an hour She has SCDs in place She has a Johnson to bedside drainage On Depakote drip Her right arm is twitching She remains critically ill with a poor prognosis but the family wants everything still done 01/14/2021 Patient seen and examined in the ICU She remains mechanically ventilated and is unresponsive despite no sedation AC/450/40 percent with 5 of PEEP Has IV Zosyn hanging Has Johnson to bedside drainage Discussed with RN Discussed with case management Chart reviewed She remains critically ill Ms Castro is a 60 year old female w/ PMHx Asthma, CAD s/p stenting x6, CHF, COPD, Diabetes-Type II, High Cholesterol, Hypertension, neuropathy, morbid obesity, RLS, insomnia who presented to ER after she was brought here by EMS from home after she was found unresponsive in her bed by her family. Patient w as last known normal was 9 AM on 01/03/2021. family tried to call her but could not get a hold of her so they show up to her house, found her unresponsive in her bed. Per family, patient had a CPAP machine on but the mask slid off her face, there was lot of mucus and material around her face and on her neck area. Patient was responsive to painful stimuli but was very confused, did not follow command. EMS were called, they found her in respiratory distress, GCS of 7-8, they bagged her and brought her here. Upon arrival to room, patient was unresponsive to verbal, severe respiratory distress, need emergent intubation. During the difficult intubation patient became bradycardic and CODE BLUE was initiated. Patient subsequently went into ventricular fibrillation, underwent shock therapy and was initiated on intravenous amiodarone infusion and admitted to ICU. She has been admitted to [place] [id number] for intractable nausea and vomiting and PMC once has had this as well as intense pruritis for 6 months. Was seen and treated for same in November, underwent cardiac cath and GI consultation at the time, was discharged home. Her family stated that patient was seen here 2 days prior for epigastric abdominal pain. It was recommended that she need to stay in the hospital donald hurtado patient did not want to stay in the hospital so she went home. AMA. 01/05: No acute events overnight. Patient seen and examined bedside. Patient remains intubated. Without sedation. Vent settings at 18/450/40/5. Patient is not responding to painful stimuli at this time. There is a lot of secretions. Currently not on any vasopressors 01/06: No acute events overnight. Patient withdraws to pain. Still intubated with vent settings at 16/450/40/5. Not on any sedation at this time. 01/07: No overnight events. Afebrile. On vent with no sedation for 48 hours FiO2 40% PEEP of 5. Not requiring vasopressors. Not making meaningful eye contact or meaningful movement. Minimal reflexes. Breathing over the vent. Discussed with son, Lance overall poor prognosis given what is likely anoxic encephalopathy. He wants to discuss with his aunt Liss and sister Camille future goals of care. 01/08: No events. Afebrile. Still with no meaningful activity no sedation on vent FiO2 40% PEEP of 5, ABG 7.45/46/142. No BM. Adequate UOP. No residuals on feeds. EEG interpreted by neurology as abnormal because of a severe diffuse disturbance of cerebral activity, consistent with a very poor prognosis from anoxic encephalopathy. 01/09: Overnight ventilated no significant activity he still off sedation. K3.2. Vent FiO2 40% PEEP of 5. Chest radiograph unchanged from prior. Right hand with new twitching, concerning for seizure activity, d/w neurology. D/w sons goals of care and grim neurologic prognosis. 01/10: Afebrile, K3.1. ABG 7.4 7/40/129 on 40% FiO2. CXR stable. Still with right hand tremor. Long d/w son, Lance, and his significant other. 01/11: No overnight events. Chest radiograph stable, ABG on 40% FiO2 and PEEP 5 was 7.48/46/137. Heart rate slowing down and blood pressure coming up a bit. Glucose stable. No sedating meds for over 96 hours. No meaningful interaction. Babinski reflexes demonstrated to family. 01/12: Afebrile overnight. Creatinine 1.3, Hb 9.2. Having more PVCs on monitor today. On 40% FiO2 PEEP of 5. Blood pressure little elevated requiring additional IV dose of hydralazine. Still with right arm twitching and irregular mouth movement. No meaningful neurologic interaction. Afebrile overnight. Chest radiograph appears relatively unchanged from prior. Still with multiple PVCs. On vent without sedation since 01/04/2021. FiO2 40% PEEP 5 ABG 7.46/49/129. Still with right arm twitching, more severe. Vitals/I&O Vitals/I&O: Vital Signs Date Time Temp Pulse Resp B/P (MAP) Pulse Ox O2 Delivery O2 Flow Rate FiO2 01/22/21 10:00 70 20 129/56 (80) 98 Ventilator 01/22/21 08:00 99.4 99.4 I & O 01/21/21 01/21/21 01/22/21 15:00 23:00 07:00 Intake Total 840 ml 700 ml Output Total 465 ml 465 ml 390 ml Balance -465 ml 375 ml 310 ml Physical Exam Physical Exam: GENERAL: Intubated, opens eyes transiently, does not follow any commands HEENT: Normocephalic, atraumatic. Tongue protruded, ETT /OGT + NECK: Supple though fullness due to body habitus. LUNGS: Decreased breath sounds. No wheezing. HEART: S1, S2. Distant heart sounds. ABDOMEN: Obese. Bowel sounds present. EXTREMITIES: Minimal edema. No cyanosis. NEUROLOGIC: Intubated,right upper extremity twitching Left IJ clean General: No acute distress, Other (Intubated sedated) Heart: Regular rate Lungs: Clear, Crackles Abdomen: Soft Extremities: Other (Trace edema) Skin: No rashes Labs Labs: Laboratory Tests Test 01/22/21 00:15 01/22/21 05:45 01/22/21 08:00 Glucose (Fingerstick) 143 mg/dL (70-99) Sodium Level 144 mmol/L (136-145) Potassium Level 4.6 mmol/L (3.5-5.1) Chloride Level 107 mmol/L (98-107) Carbon Dioxide Level 31 mmol/L (21-32) Anion Gap 6 (6-14) Blood Urea Nitrogen 29 mg/dL (7-20) Creatinine 1.4 mg/dL (0.6-1.0) Estimated GFR (Cockcroft-Gault) 46.1 Glucose Level 165 mg/dL (70-99) Calcium Level 9.0 mg/dL (8.5-10.1) O2 Saturation 99 % (92-99) Arterial Blood pH 7.46 (7.35-7.45) Arterial Blood pCO2 at Patient Temp 41 mmHg (35-46) Arterial Blood pO2 at Patient Temp 158 mmHg (65-108) Arterial Blood HCO3 29 mmol/L (21-28) Arterial Blood Base Excess 4 mmol/L (-3-3) FiO2 35/vent Assessment and Plan Assessmemt and Plan Problems Medical Problems: (1) Acute renal failure Status: Acute (2) Altered mental status Status: Acute (3) Aspiration pneumonia Status: Acute (4) Hyperkalemia Status: Acute (5) Respiratory failure Status: Acute (6) Sepsis Status: Acute Respiratory failure Status post CODE BLUE Severe anoxic brain injury Persistent vegetative state Pneumonia Hyperkalemia Sepsis Obesity Protein malnutrition Hypertensive urgency Seizures CHF COPD Plan ICU monitoring DC Zosyn Continue Johnson to bedside drainage Her prognosis is extremely poor Compassionate extubation up on family's arrival Comment Review of Relevant I have reviewed the following items shady (where applicable) has been applied. Medications: Current Medications Medications (Trade) Dose Ordered Sig/Lui Route PRN Reason Start Time Stop Time Status Last Admin Dose Admin Morphine Sulfate (Morphine Sulfate) 5 mg PRN Q30MIN PRN IV PAIN 01/22/21 10:45 01/22/21 11:25 Lorazepam (Ativan Inj) 2 mg PRN Q30MIN PRN IVP ANXIETY / AGITATION 01/22/21 10:45 01/22/21 11:01 Justifications for Admission Other Justification cardiac arrest DANY COVARRUBIAS MD Jan 22, 2021 15:12
== END 2021-01-22 11:30 | DRG 870 ==
LOC: ER 10:55 → 1 WEST ICU 12:50
PROVIDERS: ADMIT Family Medicine; ATTEND Family Medicine
PROC: 5A1955Z Respiratory Ventilation, Greater than 96 Consecutive Hours (ICD-10-PCS; principal; 2021-01-04)
PROC: 0BH17EZ Insertion of Endotracheal Airway into Trachea, Via Natural or Artificial Opening (ICD-10-PCS; 2021-01-04)
PROC: 02HV33Z Insertion of Infusion Device into Superior Vena Cava, Percutaneous Approach (ICD-10-PCS; 2021-01-04)
PROC: B548ZZA Ultrasonography of Superior Vena Cava, Guidance (ICD-10-PCS; 2021-01-04)
DX: A41.89 Other specified sepsis (principal); J69.0 Pneumonitis due to inhalation of food and vomit; I21.3 ST elevation (STEMI) myocardial infarction of unspecified site; J96.01 Acute respiratory failure with hypoxia; E43 Unspecified severe protein-calorie malnutrition; G93.41 Metabolic encephalopathy; I50.43 Acute on chronic combined systolic (congestive) and diastolic (congestive) heart failure; J96.02 Acute respiratory failure with hypercapnia; N17.0 Acute kidney failure with tubular necrosis; Z68.42 Body mass index [BMI] 45.0-49.9, adult; E87.0 Hyperosmolality and hypernatremia; G93.1 Anoxic brain damage, not elsewhere classified; I13.0 Hypertensive heart and chronic kidney disease with heart failure and stage 1 through stage 4 chronic kidney disease, or unspecified chronic kidney disease; I47.2 Ventricular tachycardia; J44.0 Chronic obstructive pulmonary disease with (acute) lower respiratory infection; J98.11 Atelectasis; N39.0 Urinary tract infection, site not specified; I49.01 Ventricular fibrillation; F32.9 Major depressive disorder, single episode, unspecified; F41.9 Anxiety disorder, unspecified; K21.9 Gastro-esophageal reflux disease without esophagitis; K58.9 Irritable bowel syndrome, unspecified; M19.90 Unspecified osteoarthritis, unspecified site; Z20.822 Contact with and (suspected) exposure to COVID-19; B95.61 Methicillin susceptible Staphylococcus aureus infection as the cause of diseases classified elsewhere; B96.89 Other specified bacterial agents as the cause of diseases classified elsewhere; E11.22 Type 2 diabetes mellitus with diabetic chronic kidney disease; E11.40 Type 2 diabetes mellitus with diabetic neuropathy, unspecified; E66.01 Morbid (severe) obesity due to excess calories; E78.00 Pure hypercholesterolemia, unspecified; E78.5 Hyperlipidemia, unspecified; E87.5 Hyperkalemia; E87.6 Hypokalemia; G25.81 Restless legs syndrome; G47.00 Insomnia, unspecified; G47.33 Obstructive sleep apnea (adult) (pediatric); H05.20 Unspecified exophthalmos; I16.0 Hypertensive urgency; I25.10 Atherosclerotic heart disease of native coronary artery without angina pectoris; I45.10 Unspecified right bundle-branch block; I46.2 Cardiac arrest due to underlying cardiac condition; M47.812 Spondylosis without myelopathy or radiculopathy, cervical region; M53.82 Other specified dorsopathies, cervical region; N18.30 Chronic kidney disease, stage 3 unspecified; R56.9 Unspecified convulsions; T88.4XXA Failed or difficult intubation, initial encounter; Z51.5 Encounter for palliative care; Y92.238 Other place in hospital as the place of occurrence of the external cause; I25.2 Old myocardial infarction; Z95.5 Presence of coronary angioplasty implant and graft; Z87.891 Personal history of nicotine dependence; Z83.3 Family history of diabetes mellitus; Z82.49 Family history of ischemic heart disease and other diseases of the circulatory system
CPT/HCPCS: 31500; 36415; 36556; 36600; 70450; 71045; 72125; 80048; 80053; 80069; 81001; 82550; 82805; 82962; 83605; 83615; 83735; 83880; 84100; 84443; 84484; 85025; 85027; 85610; 85730; 87040; 87070; 87077; 87086; 87186; 87205; 87426; 93005; 93970; 94002; 94003; 95816; 96365; 96366; 96368; 96375; J0171; J0282; J0330; J0360; J0878; J1644; J1815; J1940; J2020; J2060; J2250; J2270; J2543; J2704; J3480; J3490; J7030; J7060; U0003; 99291-25; G0378